=== PATIENT | male | born 1945 | race Caucasian/White ===

== ENCOUNTER 2018-03-25 03:53 | Observation (INO) | payer OTHER ==
--- OUTSIDE RECORDS SUMMARY | 2018-03-25 03:56 | XMS REPORT | Clinical Summary ---
:1945 Author Organization [facility] Address [address] [place] [address] Phone Care Team Providers Name Role Phone Unavailable Primary Care Provider Unavailable Allergies No Known Allergies Current Medications Prescription Sig. Disp. Refills Start Date End Date Status omeprazole (PRILOSEC) Take 20 mg by Active 20 MG capsule mouth 2 (two) times daily. pravastatin Take 40 mg by Active (PRAVACHOL) 40 MG mouth daily. tablet amLODIPine (NORVASC) 5 Take 1 tablet 30 tablet 0 01/28/2017 01/28/2018 MG tablet (5 mg total) by mouth daily. Active Problems Problem Noted Date Delirium 01/14/2017 History of subdural hemorrhage 01/13/2017 Hyponatremia 01/13/2017 DVT (deep venous thrombosis) ([facility]) 01/13/2017 Acute deep vein thrombosis (DVT) of popliteal vein of right lower 01/12/2017 extremity ([facility]) Thrombocytopenia ([facility]) 01/12/2017 Hyperlipidemia 01/12/2017 GERD (gastroesophageal reflux disease) 01/12/2017 Acute encephalopathy 12/25/2016 Midline shift of brain 12/25/2016 Weakness of both lower extremities 12/24/2016 Midline low back pain with left-sided sciatica, unspecified chronicity 2016 Midline low back pain with left-sided sciatica 12/18/2016 Intracranial subdural hematoma ([facility]) 12/01/2016 Focal and partial seizures ([facility]) 11/19/2016 Aphasia 10/27/2016 Headache due to intracranial disease 10/18/2016 SDH (subdural hematoma) ([facility]) 10/13/2016 SAH (subarachnoid hemorrhage) ([facility]) 10/11/2016 Seizure disorder ([facility]) Hypertension, essential NGA (obstructive sleep apnea) Social History Tobacco Use Types Packs/Day Years Used Date Former Smoker Cigarettes Quit: 08/19/1968 Alcohol Use Drinks/Week oz/Week Comments No quit in 2006 Sex Assigned at Date Recorded Not on file Last Filed Vital Signs Not on file Plan of Treatment Not on file Implants Implanted Type Area [place] Device Expiration Model / Identifier Date Serial / Lot Matrix Floseal Hemo W/O Ndl 10 [id number] - [id number] Cement/Fi Left: POLLARD: BIOSCI 04/18/2018 [id number] / Implanted: Qty: 1 on 12/02/2016 by Michael Alonso MD ller/Adhe Head / sive [id number] Matrix Floseal Hemo W/O Ndl 10 [id number] - [id number] Cement/Fi Left: POLLARD: BIOSCI 05/18/2018 [id number] / Implanted: Qty: 1 on 12/25/2016 by Michael Alonso MD llchas/Adhe Head / sive [id number] Cover [place] [employer] Hole Low Prof 14mm [id number] - [id number] Fracture/ Left: RAPHAEL: RAPHAEL [id number] / Implanted: Qty: 1 on 12/02/2016 by Michael Alonso MD Fixation Head LEIBINGER / Plt W/Tab Un3 2h 53-71203 - [id number] Fracture/ Left: RAPHAEL:CRANIOMA [id number] / Implanted: Qty: 2 on 12/02/2016 by Michael Alonso MD Fixation Head XILLOFACIAL / Scr Un3 [place] Self Drl 1.5x4mm [id number] - [id number] Fracture/ Left: RAPHAEL: CRANIOMA [id number] / Implanted: Qty: 9 on 12/02/2016 by Michael Alonso MD Fixation Head XILLOFACIAL / Cath Bactiseal Evd 82-1745 - [id number] Neuro Left: J &J:LUCIUS & 2016 [id number] / Implanted: Qty: 1 on 12/25/2016 by Michael Alonso MD Head SHURTLEFF / [id number] Results Not on fileafter 03/24/2017
--- OUTSIDE RECORDS SUMMARY | 2018-03-25 04:01 | XMS REPORT ---
:1945 [facility] Organization [facility] Address [address] [place] [address] Dr. Daly [address] [place] [id number] Care Team Providers Name Role Phone JEFF DE PAZ Unavailable Unavailable AMBAR RAI Unavailable Unavailable CLAUDIA ANGELES Unavailable Unavailable RADHA GAFFNEY Unavailable Unavailable ANISA FERRARI Unavailable Unavailable Problems This patient has no known problems. Allergies, Adverse Reactions, Alerts This patient has no known allergies or adverse reactions. Medications This patient has no known medications. Results Test Description Test Time Test Comments Text Results Atomic Results Result Comments CBC W/PLT COUNT & AUTO DIFFERENTIAL 2017-01-28 10:16:00 Test Item Value Reference Range Comments WHITE BLOOD CELL COUNT (BEAKER) (test ypxe=987) 2.8 K/ L 4.0-10.0 RED BLOOD CELL COUNT (BEAKER) (test awpu=218) 3.42 M/ L 4.20-5.80 HEMOGLOBIN (BEAKER) (test gwas=513) 9.3 GM/DL 13.0-16.8 HEMATOCRIT (BEAKER) (test trrq=114) 29.3 % 40.0-50.0 MEAN CORPUSCULAR VOLUME (BEAKER) (test tjbw=286) 85.7 fL 82.0-98.0 MEAN CORPUSCULAR HEMOGLOBIN (BEAKER) (test gmir=251) 27.1 pg 27.0-33.0 MEAN CORPUSCULAR HEMOGLOBIN CONC (BEAKER) (test hkjy=654) 31.7 GM/DL 32.0- 36.0 RED CELL DISTRIBUTION WIDTH (BEAKER) (test pmpu=843) 16.5 % 10.3-14.2 PLATELET COUNT (BEAKER) (test vpwj=851) 163 K/CU MM 150-430 MEAN PLATELET VOLUME (BEAKER) (test kiim=568) 6.6 fL 6.5-10.5 NUCLEATED RED BLOOD CELLS (BEAKER) (test fpah=400) 0 /100 WBC 0-0 NEUTROPHILS RELATIVE PERCENT (BEAKER) (test wpdb=937) 64 % LYMPHOCYTES RELATIVE PERCENT (BEAKER) (test fgdy=015) 18 % MONOCYTES RELATIVE PERCENT (BEAKER) (test vtct=950) 11 % EOSINOPHILS RELATIVE PERCENT (BEAKER) (test omxh=770) 7 % BASOPHILS RELATIVE PERCENT (BEAKER) (test dqci=894) 0 % NEUTROPHILS ABSOLUTE COUNT (BEAKER) (test muru=068) 1.75 K/ L 1.80-8.00 LYMPHOCYTES ABSOLUTE COUNT (BEAKER) (test zefl=830) 0.50 K/ L 1.48-4.50 MONOCYTES ABSOLUTE COUNT (BEAKER) (test lnpr=384) 0.30 K/ L 0.00-1.30 EOSINOPHILS ABSOLUTE COUNT (BEAKER) (test dqee=284) 0.20 K/ L 0.00-0.50 BASOPHILS ABSOLUTE COUNT (BEAKER) (test dmwj=693) 0.01 K/ L 0.00-0.20 0.00(MANUAL DIFFERENTIAL)2017-01-28 10:16:00 Test Item Value Reference Range Comments TOTAL COUNTED (BEAKER) (test tiun=6650) WBC MORPHOLOGY (BEAKER) (test pzkk=007) Normal PLT MORPHOLOGY (BEAKER) (test oddu=290) Normal RBC MORPHOLOGY (BEAKER) (test bmhw=636) Normal BASIC METABOLIC [id number] 07:36:00 Test Item Value Reference Range Comments SODIUM (BEAKER) (test 134 meq/L 136-145 scqt=437) POTASSIUM (BEAKER) (test 4.0 meq/L 3.5-5.1 tbst=801) CHLORIDE (BEAKER) (test 102 meq/L 98-107 gqua=592) CO2 (BEAKER) (test 22 meq/L 22-29 eokw=955) BLOOD UREA NITROGEN 12 mg/dL 7-21 (BEAKER) (test haei=674) CREATININE (BEAKER) (test 0.79 mg/dL 0.57-1.25 etzn=871) GLUCOSE RANDOM (BEAKER) 94 mg/dL 70-105 (test nilr=731) CALCIUM (BEAKER) (test 8.6 mg/dL 8.4-10.2 lpmq=551) EGFR (BEAKER) (test 97 mL/min/1.73 sq m ESTIMATED GFR IS NOT qiip=7107) ACCURATE CREATININE CLEARANCE IN PREDICTING GLOMERULAR FILTRATION RATE. ESTIMATED GFR IS NOT APPLICABLE FOR DIALYSIS PATIENTS. [id number] 07:33:00 Test Item Value Reference Range Comments PROTIME (BEAKER) (test hfwk=139) 14.0 seconds 11.7-14.7 INR (BEAKER) (test rdfe=471) 1.1 <=5.9 PARTIAL THROMBOPLASTIN TIME (BEAKER) (test 31.2 seconds 22.5-36.0 dljt=648) RECOMMENDED COUMADIN/WARFARIN INR THERAPY RANGESSTANDARD DOSE: 2.0 - 3.0 Includes: PROPHYLAXIS forvenous thrombosis, systemic embolization; TREATMENT for venous thrombosis and/or pulmonary embolus.HIGH RISK: Target INR is 2.5-3.5 for patients with mechanical heart valves.[id number] 16:00:00 Test Item Value Reference Range Comments PHOSPHORUS (BEAKER) (test pdyb=864) 3.6 mg/dL 2.3-4.7 [id number] 16:00:00 Test Item Value Reference Range Comments MAGNESIUM (BEAKER) (test eevr=096) 2.0 mg/dL 1.6-2.6 BASIC METABOLIC [id number] 16:00:00 Test Item Value Reference Range Comments SODIUM (BEAKER) (test 134 meq/L 136-145 veti=418) POTASSIUM (BEAKER) (test 4.2 meq/L 3.5-5.1 mmce=915) CHLORIDE (BEAKER) (test 102 meq/L 98-107 bbqm=834) CO2 (BEAKER) (test 25 meq/L 22-29 bjpe=969) BLOOD UREA NITROGEN 15 mg/dL 7-21 (BEAKER) (test xgyp=272) CREATININE (BEAKER) (test 0.78 mg/dL 0.57-1.25 kvvf=226) GLUCOSE RANDOM (BEAKER) 111 mg/dL 70-105 (test ecng=416) CALCIUM (BEAKER) (test 8.3 mg/dL 8.4-10.2 iszh=447) EGFR (BEAKER) (test 99 mL/min/1.73 sq m ESTIMATED GFR IS NOT pebg=3995) ACCURATE CREATININE CLEARANCE IN PREDICTING GLOMERULAR FILTRATION RATE. ESTIMATED GFR IS NOT APPLICABLE FOR DIALYSIS PATIENTS. CBC W/PLT COUNT & AUTO [id number] 15:02:00 Test Item Value Reference Range Comments WHITE BLOOD CELL COUNT (BEAKER) (test aobo=079) 2.8 K/ L 4.0-10.0 RED BLOOD CELL COUNT (BEAKER) (test vmqy=643) 3.15 M/ L 4.20-5.80 HEMOGLOBIN (BEAKER) (test dnoe=733) 8.9 GM/DL 13.0-16.8 HEMATOCRIT (BEAKER) (test vfwg=553) 27.1 % 40.0-50.0 MEAN CORPUSCULAR VOLUME (BEAKER) (test emts=024) 85.9 fL 82.0-98.0 MEAN CORPUSCULAR HEMOGLOBIN (BEAKER) (test 28.3 pg 27.0-33.0 qpoi=540) MEAN CORPUSCULAR HEMOGLOBIN CONC (BEAKER) (test 33.0 GM/DL 32.0-36.0 vzmb=079) RED CELL DISTRIBUTION WIDTH (BEAKER) (test 15.8 % 10.3-14.2 qrds=107) PLATELET COUNT (BEAKER) (test fwqn=316) 153 K/CU MM 150-430 MEAN PLATELET VOLUME (BEAKER) (test svdr=836) 6.5 fL 6.5-10.5 NUCLEATED RED BLOOD CELLS (BEAKER) (test 0 /100 WBC 0-0 ujqc=073) NEUTROPHILS RELATIVE PERCENT (BEAKER) (test 68 % rmsj=046) LYMPHOCYTES RELATIVE PERCENT (BEAKER) (test 15 % mwlv=906) MONOCYTES RELATIVE PERCENT (BEAKER) (test 9 % uizj=808) EOSINOPHILS RELATIVE PERCENT (BEAKER) (test 7 % armf=874) BASOPHILS RELATIVE PERCENT (BEAKER) (test 1 % amof=124) NEUTROPHILS ABSOLUTE COUNT (BEAKER) (test 1.89 K/ L 1.80-8.00 tlrp=965) LYMPHOCYTES ABSOLUTE COUNT (BEAKER) (test 0.42 K/ L 1.48-4.50 zamf=582) MONOCYTES ABSOLUTE COUNT (BEAKER) (test 0.26 K/ L 0.00-1.30 unef=376) EOSINOPHILS ABSOLUTE COUNT (BEAKER) (test 0.20 K/ L 0.00-0.50 atig=217) BASOPHILS ABSOLUTE COUNT (BEAKER) (test 0.02 K/ L 0.00-0.20 qhgu=413) (MANUAL DIFFERENTIAL)2017-01-27 15:02:00 Test Item Value Reference Range Comments TOTAL COUNTED (BEAKER) (test pizb=9249) WBC MORPHOLOGY (BEAKER) (test rruu=010) Normal PLT MORPHOLOGY (BEAKER) (test jcua=527) Normal RBC MORPHOLOGY (BEAKER) (test hysp=602) Normal [id number] 07:21:00 Test Item Value Reference Range Comments PROTIME (BEAKER) (test naew=870) 14.0 seconds 11.7-14.7 INR (BEAKER) (test zcds=064) 1.1 <=5.9 PARTIAL THROMBOPLASTIN TIME (BEAKER) (test 35.9 seconds 22.5-36.0 hhxr=717) RECOMMENDED COUMADIN/WARFARIN INR THERAPY RANGESSTANDARD DOSE: 2.0 - 3.0 Includes: PROPHYLAXIS forvenous thrombosis, systemic embolization; TREATMENT for venous thrombosis and/or pulmonary embolus.HIGH RISK: Target INR is 2.5-3.5 for patients with mechanical heart valves.CALCIUM, [id number] 06:48:00 Test Item Value Reference Range Comments CALCIUM IONIZED (BEAKER) (test uudy=972) 1.05 mmol/L 1.12-1.27 PH, BLOOD (BEAKER) (test coty=6596) 7.40 CBC W/PLT COUNT & AUTO [id number] 13:02:00 Test Item Value Reference Range Comments WHITE BLOOD CELL COUNT (BEAKER) (test jyrv=785) 2.9 K/ L 4.0-10.0 RED BLOOD CELL COUNT (BEAKER) (test tnzk=593) 3.06 M/ L 4.20-5.80 HEMOGLOBIN (BEAKER) (test theg=100) 8.8 GM/DL 13.0-16.8 HEMATOCRIT (BEAKER) (test dwta=279) 26.4 % 40.0-50.0 MEAN CORPUSCULAR VOLUME (BEAKER) (test qejq=106) 86.3 fL 82.0-98.0 MEAN CORPUSCULAR HEMOGLOBIN (BEAKER) (test 28.6 pg 27.0-33.0 mlof=602) MEAN CORPUSCULAR HEMOGLOBIN CONC (BEAKER) (test 33.2 GM/DL 32.0-36.0 hjtg=032) RED CELL DISTRIBUTION WIDTH (BEAKER) (test 14.4 % 10.3-14.2 agvc=090) PLATELET COUNT (BEAKER) (test iztq=727) 145 K/CU MM 150-430 MEAN PLATELET VOLUME (BEAKER) (test kkfk=689) 6.4 fL 6.5-10.5 NUCLEATED RED BLOOD CELLS (BEAKER) (test 0 /100 WBC 0-0 jvvv=469) NEUTROPHILS RELATIVE PERCENT (BEAKER) (test 67 % bfez=051) LYMPHOCYTES RELATIVE PERCENT (BEAKER) (test 17 % cmeq=436) MONOCYTES RELATIVE PERCENT (BEAKER) (test 11 % exef=946) EOSINOPHILS RELATIVE PERCENT (BEAKER) (test 5 % vbsz=006) BASOPHILS RELATIVE PERCENT (BEAKER) (test 0 % mwzs=463) NEUTROPHILS ABSOLUTE COUNT (BEAKER) (test 1.98 K/ L 1.80-8.00 qxie=885) LYMPHOCYTES ABSOLUTE COUNT (BEAKER) (test 0.50 K/ L 1.48-4.50 gsyt=460) MONOCYTES ABSOLUTE COUNT (BEAKER) (test 0.31 K/ L 0.00-1.30 gjgf=088) EOSINOPHILS ABSOLUTE COUNT (BEAKER) (test 0.15 K/ L 0.00-0.50 scyo=923) BASOPHILS ABSOLUTE COUNT (BEAKER) (test 0.00 K/ L 0.00-0.20 ejat=809) (MANUAL DIFFERENTIAL)2017-01-26 13:02:00 Test Item Value Reference Range Comments TOTAL COUNTED (BEAKER) (test kygu=5490) WBC MORPHOLOGY (BEAKER) (test cwqi=095) Normal PLT MORPHOLOGY (BEAKER) (test remj=392) Normal ANISOCYTOSIS (BEAKER) (test kidn=424) 1+ few POLYCHROMATOPHILLIC RBCS(BEAKER) (test zcni=214) 1+ few [id number] 07:15:00 Test Item Value Reference Range Comments PHOSPHORUS (BEAKER) (test optx=747) 3.2 mg/dL 2.3-4.7 [id number] 07:15:00 Test Item Value Reference Range Comments MAGNESIUM (BEAKER) (test mdzi=307) 2.1 mg/dL 1.6-2.6 BASIC METABOLIC [id number] 07:15:00 Test Item Value Reference Range Comments SODIUM (BEAKER) (test 132 meq/L 136-145 ptio=881) POTASSIUM (BEAKER) (test 4.3 meq/L 3.5-5.1 mius=839) CHLORIDE (BEAKER) (test 101 meq/L 98-107 ywhi=202) CO2 (BEAKER) (test 25 meq/L 22-29 icij=922) BLOOD UREA NITROGEN 15 mg/dL 7-21 (BEAKER) (test wmns=200) CREATININE (BEAKER) (test 0.78 mg/dL 0.57-1.25 nczx=070) GLUCOSE RANDOM (BEAKER) 95 mg/dL 70-105 (test hxez=368) CALCIUM (BEAKER) (test 8.1 mg/dL 8.4-10.2 zbqa=178) EGFR (BEAKER) (test 99 mL/min/1.73 sq m ESTIMATED GFR IS NOT gbaz=5323) ACCURATE CREATININE CLEARANCE IN PREDICTING GLOMERULAR FILTRATION RATE. ESTIMATED GFR IS NOT APPLICABLE FOR DIALYSIS PATIENTS. CALCIUM, [id number] 06:56:00 Test Item Value Reference Range Comments CALCIUM IONIZED (BEAKER) (test sswb=387) 1.00 mmol/L 1.12-1.27 PH, BLOOD (BEAKER) (test deto=0185) 7.39 [id number] 06:45:00 Test Item Value Reference Range Comments PROTIME (BEAKER) (test hqtv=347) 14.6 seconds 11.7-14.7 INR (BEAKER) (test vbpt=886) 1.2 <=5.9 PARTIAL THROMBOPLASTIN TIME (BEAKER) (test 31.6 seconds 22.5-36.0 enkw=875) RECOMMENDED COUMADIN/WARFARIN INR THERAPY RANGESSTANDARD DOSE: 2.0 - 3.0 Includes: PROPHYLAXIS forvenous thrombosis, systemic embolization; TREATMENT for venous thrombosis and/or pulmonary embolus.HIGH RISK: Target INR is 2.5-3.5 for patients with mechanical heart valves.CBC W/PLT COUNT & AUTO [id number] 07:23:00 Test Item Value Reference Range Comments WHITE BLOOD CELL COUNT (BEAKER) (test nyul=356) 3.8 K/ L 4.0-10.0 RED BLOOD CELL COUNT (BEAKER) (test jdnh=811) 3.10 M/ L 4.20-5.80 HEMOGLOBIN (BEAKER) (test egyj=722) 8.8 GM/DL 13.0-16.8 HEMATOCRIT (BEAKER) (test xeha=271) 26.7 % 40.0-50.0 MEAN CORPUSCULAR VOLUME (BEAKER) (test puff=214) 85.9 fL 82.0-98.0 MEAN CORPUSCULAR HEMOGLOBIN (BEAKER) (test 28.2 pg 27.0-33.0 wrxa=582) MEAN CORPUSCULAR HEMOGLOBIN CONC (BEAKER) (test 32.9 GM/DL 32.0-36.0 rdpr=337) RED CELL DISTRIBUTION WIDTH (BEAKER) (test 15.8 % 10.3-14.2 zfom=950) PLATELET COUNT (BEAKER) (test jnht=474) 134 K/CU MM 150-430 MEAN PLATELET VOLUME (BEAKER) (test adie=491) 6.4 fL 6.5-10.5 NUCLEATED RED BLOOD CELLS (BEAKER) (test 0 /100 WBC 0-0 wxsy=347) NEUTROPHILS RELATIVE PERCENT (BEAKER) (test 75 % jaqn=564) LYMPHOCYTES RELATIVE PERCENT (BEAKER) (test 12 % edxu=851) MONOCYTES RELATIVE PERCENT (BEAKER) (test 9 % vdag=618) EOSINOPHILS RELATIVE PERCENT (BEAKER) (test 3 % reno=580) BASOPHILS RELATIVE PERCENT (BEAKER) (test 1 % xyph=810) NEUTROPHILS ABSOLUTE COUNT (BEAKER) (test 2.87 K/ L 1.80-8.00 ahjv=966) LYMPHOCYTES ABSOLUTE COUNT (BEAKER) (test 0.46 K/ L 1.48-4.50 eeqb=525) MONOCYTES ABSOLUTE COUNT (BEAKER) (test 0.36 K/ L 0.00-1.30 ruks=723) EOSINOPHILS ABSOLUTE COUNT (BEAKER) (test 0.13 K/ L 0.00-0.50 taym=736) BASOPHILS ABSOLUTE COUNT (BEAKER) (test 0.02 K/ L 0.00-0.20 koua=402) 0.000.500.000.000.000.000.000.00(MANUAL DIFFERENTIAL)2017-01-25 07:23:00 Test Item Value Reference Range Comments TOTAL COUNTED (BEAKER) (test iwvj=6307) WBC MORPHOLOGY (BEAKER) (test wqnu=706) Normal PLT MORPHOLOGY (BEAKER) (test tmso=328) Normal POLYCHROMATOPHILLIC RBCS(BEAKER) (test nzqg=245) 1+ few BASIC METABOLIC [id number] 04:52:00 Test Item Value Reference Range Comments SODIUM (BEAKER) (test 131 meq/L 136-145 ycko=118) POTASSIUM (BEAKER) (test 4.2 meq/L 3.5-5.1 gihl=666) CHLORIDE (BEAKER) (test 100 meq/L 98-107 thnw=087) CO2 (BEAKER) (test 23 meq/L 22-29 lmgr=473) BLOOD UREA NITROGEN 15 mg/dL 7-21 (BEAKER) (test hvqr=112) CREATININE (BEAKER) (test 0.76 mg/dL 0.57-1.25 sgmz=162) GLUCOSE RANDOM (BEAKER) 103 mg/dL 70-105 (test vdqx=970) CALCIUM (BEAKER) (test 8.3 mg/dL 8.4-10.2 meww=325) EGFR (BEAKER) (test 102 mL/min/1.73 sq m ESTIMATED GFR IS NOT hpof=0434) ACCURATE CREATININE CLEARANCE IN PREDICTING GLOMERULAR FILTRATION RATE. ESTIMATED GFR IS NOT APPLICABLE FOR DIALYSIS PATIENTS. [id number] 04:04:00 Test Item Value Reference Range Comments PROTIME (BEAKER) (test bhrz=486) 13.8 seconds 11.7-14.7 INR (BEAKER) (test iiso=792) 1.1 <=5.9 PARTIAL THROMBOPLASTIN TIME (BEAKER) (test 29.3 seconds 22.5-36.0 gcgv=014) RECOMMENDED COUMADIN/WARFARIN INR THERAPY RANGESSTANDARD DOSE: 2.0 - 3.0 Includes: PROPHYLAXIS forvenous thrombosis, systemic embolization; TREATMENT for venous thrombosis and/or pulmonary embolus.HIGH RISK: Target INR is 2.5-3.5 for patients with mechanical heart valves.CBC W/PLT COUNT & AUTO [id number] 06:44:00 Test Item Value Reference Range Comments WHITE BLOOD CELL COUNT (BEAKER) (test mtpi=537) 3.8 K/ L 4.0-10.0 RED BLOOD CELL COUNT (BEAKER) (test mmiv=357) 3.13 M/ L 4.20-5.80 HEMOGLOBIN (BEAKER) (test sjyj=913) 8.9 GM/DL 13.0-16.8 HEMATOCRIT (BEAKER) (test mjmh=749) 27.2 % 40.0-50.0 MEAN CORPUSCULAR VOLUME (BEAKER) (test tjzj=374) 86.7 fL 82.0-98.0 MEAN CORPUSCULAR HEMOGLOBIN (BEAKER) (test 28.3 pg 27.0-33.0 cpkl=606) MEAN CORPUSCULAR HEMOGLOBIN CONC (BEAKER) (test 32.6 GM/DL 32.0-36.0 hcyd=566) RED CELL DISTRIBUTION WIDTH (BEAKER) (test 14.4 % 10.3-14.2 ovjs=578) PLATELET COUNT (BEAKER) (test upik=798) 135 K/CU MM 150-430 MEAN PLATELET VOLUME (BEAKER) (test hdtb=137) 6.5 fL 6.5-10.5 NUCLEATED RED BLOOD CELLS (BEAKER) (test 0 /100 WBC 0-0 ttla=738) NEUTROPHILS RELATIVE PERCENT (BEAKER) (test 75 % cefi=255) LYMPHOCYTES RELATIVE PERCENT (BEAKER) (test 13 % xkzk=883) MONOCYTES RELATIVE PERCENT (BEAKER) (test 9 % qcsv=938) EOSINOPHILS RELATIVE PERCENT (BEAKER) (test 4 % snqx=704) BASOPHILS RELATIVE PERCENT (BEAKER) (test 0 % fawz=017) NEUTROPHILS ABSOLUTE COUNT (BEAKER) (test 2.84 K/ L 1.80-8.00 pvss=118) LYMPHOCYTES ABSOLUTE COUNT (BEAKER) (test 0.48 K/ L 1.48-4.50 omtd=150) MONOCYTES ABSOLUTE COUNT (BEAKER) (test 0.33 K/ L 0.00-1.30 ivnh=495) EOSINOPHILS ABSOLUTE COUNT (BEAKER) (test 0.14 K/ L 0.00-0.50 ceue=105) BASOPHILS ABSOLUTE COUNT (BEAKER) (test 0.00 K/ L 0.00-0.20 phph=850) [id number] 06:23:00 Test Item Value Reference Range Comments PHOSPHORUS (BEAKER) (test uvpv=767) 3.5 mg/dL 2.3-4.7 [id number] 06:23:00 Test Item Value Reference Range Comments MAGNESIUM (BEAKER) (test unpz=326) 2.1 mg/dL 1.6-2.6 BASIC METABOLIC [id number] 06:23:00 Test Item Value Reference Range Comments SODIUM (BEAKER) (test 132 meq/L 136-145 smwz=206) POTASSIUM (BEAKER) (test 4.3 meq/L 3.5-5.1 xdxw=795) CHLORIDE (BEAKER) (test 100 meq/L 98-107 pxus=903) CO2 (BEAKER) (test 25 meq/L 22-29 rsgk=052) BLOOD UREA NITROGEN 17 mg/dL 7-21 (BEAKER) (test cbbt=293) CREATININE (BEAKER) (test 0.84 mg/dL 0.57-1.25 dicd=508) GLUCOSE RANDOM (BEAKER) 102 mg/dL 70-105 (test fett=740) CALCIUM (BEAKER) (test 8.3 mg/dL 8.4-10.2 watz=708) EGFR (BEAKER) (test 91 mL/min/1.73 sq m ESTIMATED GFR IS NOT rkps=1222) ACCURATE CREATININE CLEARANCE IN PREDICTING GLOMERULAR FILTRATION RATE. ESTIMATED GFR IS NOT APPLICABLE FOR DIALYSIS PATIENTS. [id number] 05:42:00 Test Item Value Reference Range Comments PROTIME (BEAKER) (test cahz=446) 14.0 seconds 11.7-14.7 INR (BEAKER) (test wjjt=002) 1.1 <=5.9 PARTIAL THROMBOPLASTIN TIME (BEAKER) (test 30.1 seconds 22.5-36.0 zmch=369) RECOMMENDED COUMADIN/WARFARIN INR THERAPY RANGESSTANDARD DOSE: 2.0 - 3.0 Includes: PROPHYLAXIS forvenous thrombosis, systemic embolization; TREATMENT for venous thrombosis and/or pulmonary embolus.HIGH RISK: Target INR is 2.5-3.5 for patients with mechanical heart valves.CALCIUM, [id number] 05:34:00 Test Item Value Reference Range Comments CALCIUM IONIZED (BEAKER) (test zeqd=082) 1.08 mmol/L 1.12-1.27 PH, BLOOD (BEAKER) (test ebpm=7113) 7.38 CBC W/PLT COUNT & AUTO [id number] 05:27:00 Test Item Value Reference Range Comments WHITE BLOOD CELL COUNT (BEAKER) (test eqsw=411) 4.9 K/ L 4.0-10.0 RED BLOOD CELL COUNT (BEAKER) (test gkyk=650) 3.22 M/ L 4.20-5.80 HEMOGLOBIN (BEAKER) (test pcqk=868) 8.9 GM/DL 13.0-16.8 HEMATOCRIT (BEAKER) (test gtsv=293) 27.9 % 40.0-50.0 MEAN CORPUSCULAR VOLUME (BEAKER) (test xrrx=757) 86.8 fL 82.0-98.0 MEAN CORPUSCULAR HEMOGLOBIN (BEAKER) (test 27.6 pg 27.0-33.0 dckh=626) MEAN CORPUSCULAR HEMOGLOBIN CONC (BEAKER) (test 31.8 GM/DL 32.0-36.0 mpyd=397) RED CELL DISTRIBUTION WIDTH (BEAKER) (test 14.5 % 10.3-14.2 bkyz=965) PLATELET COUNT (BEAKER) (test phxo=603) 137 K/CU MM 150-430 MEAN PLATELET VOLUME (BEAKER) (test gkev=697) 6.6 fL 6.5-10.5 NUCLEATED RED BLOOD CELLS (BEAKER) (test 0 /100 WBC 0-0 blik=734) NEUTROPHILS RELATIVE PERCENT (BEAKER) (test 77 % httd=383) LYMPHOCYTES RELATIVE PERCENT (BEAKER) (test 13 % zoej=681) MONOCYTES RELATIVE PERCENT (BEAKER) (test 8 % mkjs=040) EOSINOPHILS RELATIVE PERCENT (BEAKER) (test 2 % vtju=150) BASOPHILS RELATIVE PERCENT (BEAKER) (test 0 % gmso=606) NEUTROPHILS ABSOLUTE COUNT (BEAKER) (test 3.77 K/ L 1.80-8.00 myjx=728) LYMPHOCYTES ABSOLUTE COUNT (BEAKER) (test 0.62 K/ L 1.48-4.50 dyex=108) MONOCYTES ABSOLUTE COUNT (BEAKER) (test 0.39 K/ L 0.00-1.30 ldvl=279) EOSINOPHILS ABSOLUTE COUNT (BEAKER) (test 0.12 K/ L 0.00-0.50 rwob=613) BASOPHILS ABSOLUTE COUNT (BEAKER) (test 0.01 K/ L 0.00-0.20 iymr=016) 0.00CALCIUM, [id number] 05:25:00 Test Item Value Reference Range Comments CALCIUM IONIZED (BEAKER) (test hbmq=124) 1.06 mmol/L 1.12-1.27 PH, BLOOD (BEAKER) (test qhnw=0646) 7.42 [id number] 05:10:00 Test Item Value Reference Range Comments PHOSPHORUS (BEAKER) (test eqja=210) 3.8 mg/dL 2.3-4.7 [id number] 05:10:00 Test Item Value Reference Range Comments MAGNESIUM (BEAKER) (test rlug=990) 2.0 mg/dL 1.6-2.6 BASIC METABOLIC [id number] 05:10:00 Test Item Value Reference Range Comments SODIUM (BEAKER) (test 129 meq/L 136-145 pesu=222) POTASSIUM (BEAKER) (test 4.6 meq/L 3.5-5.1 doko=701) CHLORIDE (BEAKER) (test 99 meq/L 98-107 tzdy=689) CO2 (BEAKER) (test 20 meq/L 22-29 yzmi=506) BLOOD UREA NITROGEN 19 mg/dL 7-21 (BEAKER) (test dyyp=212) CREATININE (BEAKER) (test 0.84 mg/dL 0.57-1.25 qqyr=092) GLUCOSE RANDOM (BEAKER) 103 mg/dL 70-105 (test zzml=351) CALCIUM (BEAKER) (test 8.6 mg/dL 8.4-10.2 eguo=956) EGFR (BEAKER) (test 91 mL/min/1.73 sq m ESTIMATED GFR IS NOT xhzd=5001) ACCURATE CREATININE CLEARANCE IN PREDICTING GLOMERULAR FILTRATION RATE. ESTIMATED GFR IS NOT APPLICABLE FOR DIALYSIS PATIENTS. [id number] 05:03:00 Test Item Value Reference Range Comments PROTIME (BEAKER) (test dcgw=029) 15.7 seconds 11.7-14.7 INR (BEAKER) (test kryp=014) 1.3 <=5.9 PARTIAL THROMBOPLASTIN TIME (BEAKER) (test 33.7 seconds 22.5-36.0 cstj=878) RECOMMENDED COUMADIN/WARFARIN INR THERAPY RANGESSTANDARD DOSE: 2.0 - 3.0 Includes: PROPHYLAXIS forvenous thrombosis, systemic embolization; TREATMENT for venous thrombosis and/or pulmonary embolus.HIGH RISK: Target INR is 2.5-3.5 for patients with mechanical heart valves.CALCIUM, [id number] 06:19:00 Test Item Value Reference Range Comments CALCIUM IONIZED (BEAKER) (test qvte=763) 0.95 mmol/L 1.12-1.27 PH, BLOOD (BEAKER) (test npuv=3658) 7.50 CBC W/PLT COUNT & AUTO [id number] 06:16:00 Test Item Value Reference Range Comments WHITE BLOOD CELL COUNT (BEAKER) (test udah=257) 6.3 K/ L 4.0-10.0 RED BLOOD CELL COUNT (BEAKER) (test ikmy=150) 3.40 M/ L 4.20-5.80 HEMOGLOBIN (BEAKER) (test qptm=268) 9.6 GM/DL 13.0-16.8 HEMATOCRIT (BEAKER) (test qawq=453) 29.5 % 40.0-50.0 MEAN CORPUSCULAR VOLUME (BEAKER) (test hbkd=180) 86.8 fL 82.0-98.0 MEAN CORPUSCULAR HEMOGLOBIN (BEAKER) (test 28.3 pg 27.0-33.0 fetb=815) MEAN CORPUSCULAR HEMOGLOBIN CONC (BEAKER) (test 32.6 GM/DL 32.0-36.0 mozt=423) RED CELL DISTRIBUTION WIDTH (BEAKER) (test 14.2 % 10.3-14.2 swbi=505) PLATELET COUNT (BEAKER) (test pdri=661) 135 K/CU MM 150-430 MEAN PLATELET VOLUME (BEAKER) (test tgai=526) 6.7 fL 6.5-10.5 NUCLEATED RED BLOOD CELLS (BEAKER) (test 0 /100 WBC 0-0 zlmi=939) NEUTROPHILS RELATIVE PERCENT (BEAKER) (test 81 % mfqg=581) LYMPHOCYTES RELATIVE PERCENT (BEAKER) (test 8 % sido=909) MONOCYTES RELATIVE PERCENT (BEAKER) (test 8 % dgjs=708) EOSINOPHILS RELATIVE PERCENT (BEAKER) (test 2 % tnjz=717) BASOPHILS RELATIVE PERCENT (BEAKER) (test 0 % vgov=651) NEUTROPHILS ABSOLUTE COUNT (BEAKER) (test 5.14 K/ L 1.80-8.00 zumm=548) LYMPHOCYTES ABSOLUTE COUNT (BEAKER) (test 0.54 K/ L 1.48-4.50 ouis=307) MONOCYTES ABSOLUTE COUNT (BEAKER) (test 0.51 K/ L 0.00-1.30 cysi=621) EOSINOPHILS ABSOLUTE COUNT (BEAKER) (test 0.13 K/ L 0.00-0.50 xzro=292) BASOPHILS ABSOLUTE COUNT (BEAKER) (test 0.03 K/ L 0.00-0.20 uffy=798) [id number] 06:00:00 Test Item Value Reference Range Comments PHOSPHORUS (BEAKER) (test wmrv=097) 3.6 mg/dL 2.3-4.7 [id number] 06:00:00 Test Item Value Reference Range Comments MAGNESIUM (BEAKER) (test auye=130) 2.2 mg/dL 1.6-2.6 BASIC METABOLIC [id number] 06:00:00 Test Item Value Reference Range Comments SODIUM (BEAKER) (test 129 meq/L 136-145 kamu=920) POTASSIUM (BEAKER) (test 4.7 meq/L 3.5-5.1 flqw=302) CHLORIDE (BEAKER) (test 98 meq/L 98-107 ugyp=484) CO2 (BEAKER) (test 21 meq/L 22-29 sdcz=316) BLOOD UREA NITROGEN 20 mg/dL 7-21 (BEAKER) (test iyor=559) CREATININE (BEAKER) (test 0.89 mg/dL 0.57-1.25 wqyx=307) GLUCOSE RANDOM (BEAKER) 114 mg/dL 70-105 (test qhol=022) CALCIUM (BEAKER) (test 8.5 mg/dL 8.4-10.2 lobc=939) EGFR (BEAKER) (test 85 mL/min/1.73 sq m ESTIMATED GFR IS NOT flqf=1069) ACCURATE CREATININE CLEARANCE IN PREDICTING GLOMERULAR FILTRATION RATE. ESTIMATED GFR IS NOT APPLICABLE FOR DIALYSIS PATIENTS. [id number] 05:49:00 Test Item Value Reference Range Comments PROTIME (BEAKER) (test kswk=386) 14.6 seconds 11.7-14.7 INR (BEAKER) (test dzqg=537) 1.2 <=5.9 PARTIAL THROMBOPLASTIN TIME (BEAKER) (test 30.8 seconds 22.5-36.0 mcjw=111) RECOMMENDED COUMADIN/WARFARIN INR THERAPY RANGESSTANDARD DOSE: 2.0 - 3.0 Includes: PROPHYLAXIS forvenous thrombosis, systemic embolization; TREATMENT for venous thrombosis and/or pulmonary embolus.HIGH RISK: Target INR is 2.5-3.5 for patients with mechanical heart valves.[id number] 13:57:00 Test Item Value Reference Range Comments FIBRINOGEN LEVEL (BEAKER) (test fjui=098) 347 mg/dl 225-434 CBC W/PLT COUNT & AUTO [id number] 07:20:00 Test Item Value Reference Range Comments WHITE BLOOD CELL COUNT (BEAKER) (test xlek=560) 6.3 K/ L 4.0-10.0 RED BLOOD CELL COUNT (BEAKER) (test innk=034) 3.41 M/ L 4.20-5.80 HEMOGLOBIN (BEAKER) (test zwhv=691) 9.9 GM/DL 13.0-16.8 HEMATOCRIT (BEAKER) (test uulu=225) 29.5 % 40.0-50.0 MEAN CORPUSCULAR VOLUME (BEAKER) (test pwys=888) 86.4 fL 82.0-98.0 MEAN CORPUSCULAR HEMOGLOBIN (BEAKER) (test 29.1 pg 27.0-33.0 swxe=714) MEAN CORPUSCULAR HEMOGLOBIN CONC (BEAKER) (test 33.6 GM/DL 32.0-36.0 nipo=927) RED CELL DISTRIBUTION WIDTH (BEAKER) (test 15.7 % 10.3-14.2 qywr=019) PLATELET COUNT (BEAKER) (test vnyf=985) 126 K/CU MM 150-430 MEAN PLATELET VOLUME (BEAKER) (test rhau=505) 6.8 fL 6.5-10.5 NUCLEATED RED BLOOD CELLS (BEAKER) (test 0 /100 WBC 0-0 gpjx=178) NEUTROPHILS RELATIVE PERCENT (BEAKER) (test 82 % qfqj=100) LYMPHOCYTES RELATIVE PERCENT (BEAKER) (test 8 % zewh=415) MONOCYTES RELATIVE PERCENT (BEAKER) (test 8 % qqxd=148) EOSINOPHILS RELATIVE PERCENT (BEAKER) (test 2 % idoz=708) BASOPHILS RELATIVE PERCENT (BEAKER) (test 0 % shlb=121) NEUTROPHILS ABSOLUTE COUNT (BEAKER) (test 5.22 K/ L 1.80-8.00 yyrh=766) LYMPHOCYTES ABSOLUTE COUNT (BEAKER) (test 0.53 K/ L 1.48-4.50 ixvz=993) MONOCYTES ABSOLUTE COUNT (BEAKER) (test 0.50 K/ L 0.00-1.30 dmzs=439) EOSINOPHILS ABSOLUTE COUNT (BEAKER) (test 0.10 K/ L 0.00-0.50 yese=922) BASOPHILS ABSOLUTE COUNT (BEAKER) (test 0.01 K/ L 0.00-0.20 kzkn=211) 0.00BASI METABOLIC [id number] 06:11:00 Test Item Value Reference Range Comments SODIUM (BEAKER) (test 130 meq/L 136-145 iosx=013) POTASSIUM (BEAKER) (test 4.8 meq/L 3.5-5.1 jwqk=763) CHLORIDE (BEAKER) (test 96 meq/L 98-107 uojs=690) CO2 (BEAKER) (test 25 meq/L 22-29 njqb=035) BLOOD UREA NITROGEN 26 mg/dL 7-21 (BEAKER) (test yomn=556) CREATININE (BEAKER) (test 0.92 mg/dL 0.57-1.25 frfe=631) GLUCOSE RANDOM (BEAKER) 109 mg/dL 70-105 (test wpgc=161) CALCIUM (BEAKER) (test 8.8 mg/dL 8.4-10.2 zeeu=719) EGFR (BEAKER) (test 82 mL/min/1.73 sq m ESTIMATED GFR IS NOT ibkl=1438) ACCURATE CREATININE CLEARANCE IN PREDICTING GLOMERULAR FILTRATION RATE. ESTIMATED GFR IS NOT APPLICABLE FOR DIALYSIS PATIENTS. [id number] 06:01:00 Test Item Value Reference Range Comments PROTIME (BEAKER) (test myfx=767) 15.4 seconds 11.7-14.7 INR (BEAKER) (test vdll=561) 1.2 <=5.9 PARTIAL THROMBOPLASTIN TIME (BEAKER) (test 35.3 seconds 22.5-36.0 fiqn=580) RECOMMENDED COUMADIN/WARFARIN INR THERAPY RANGESSTANDARD DOSE: 2.0 - 3.0 Includes: PROPHYLAXIS forvenous thrombosis, systemic embolization; TREATMENT for venous thrombosis and/or pulmonary embolus.HIGH RISK: Target INR is 2.5-3.5 for patients with mechanical heart valves.CBC W/PLT COUNT & AUTO [id number] 07:13:00 Test Item Value Reference Range Comments WHITE BLOOD CELL COUNT (BEAKER) (test ayta=922) 6.9 K/ L 4.0-10.0 RED BLOOD CELL COUNT (BEAKER) (test lhfs=022) 3.46 M/ L 4.20-5.80 HEMOGLOBIN (BEAKER) (test nzda=944) 9.9 GM/DL 13.0-16.8 HEMATOCRIT (BEAKER) (test kdsa=314) 30.0 % 40.0-50.0 MEAN CORPUSCULAR VOLUME (BEAKER) (test oxka=699) 86.6 fL 82.0-98.0 MEAN CORPUSCULAR HEMOGLOBIN (BEAKER) (test 28.5 pg 27.0-33.0 qgdq=576) MEAN CORPUSCULAR HEMOGLOBIN CONC (BEAKER) (test 32.9 GM/DL 32.0-36.0 pwmw=605) RED CELL DISTRIBUTION WIDTH (BEAKER) (test 15.2 % 10.3-14.2 buvm=809) PLATELET COUNT (BEAKER) (test rvdy=145) 138 K/CU MM 150-430 MEAN PLATELET VOLUME (BEAKER) (test modc=905) 6.6 fL 6.5-10.5 NUCLEATED RED BLOOD CELLS (BEAKER) (test 0 /100 WBC 0-0 derq=928) NEUTROPHILS RELATIVE PERCENT (BEAKER) (test 86 % btvm=477) LYMPHOCYTES RELATIVE PERCENT (BEAKER) (test 5 % ylgv=758) MONOCYTES RELATIVE PERCENT (BEAKER) (test 7 % gkoj=620) EOSINOPHILS RELATIVE PERCENT (BEAKER) (test 1 % mqfn=530) BASOPHILS RELATIVE PERCENT (BEAKER) (test 0 % saip=343) NEUTROPHILS ABSOLUTE COUNT (BEAKER) (test 5.95 K/ L 1.80-8.00 eefs=840) LYMPHOCYTES ABSOLUTE COUNT (BEAKER) (test 0.36 K/ L 1.48-4.50 jhck=871) MONOCYTES ABSOLUTE COUNT (BEAKER) (test 0.50 K/ L 0.00-1.30 nhhr=484) EOSINOPHILS ABSOLUTE COUNT (BEAKER) (test 0.10 K/ L 0.00-0.50 iamv=353) BASOPHILS ABSOLUTE COUNT (BEAKER) (test 0.03 K/ L 0.00-0.20 npmt=201) 0.00PT/[id number] 06:09:00 Test Item Value Reference Range Comments PROTIME (BEAKER) (test dgva=034) 16.3 seconds 11.7-14.7 INR (BEAKER) (test uzxm=481) 1.3 <=5.9 PARTIAL THROMBOPLASTIN TIME (BEAKER) (test 37.7 seconds 22.5-36.0 mnzf=528) RECOMMENDED COUMADIN/WARFARIN INR THERAPY RANGESSTANDARD DOSE: 2.0 - 3.0 Includes: PROPHYLAXIS forvenous thrombosis, systemic embolization; TREATMENT for venous thrombosis and/or pulmonary embolus.HIGH RISK: Target INR is 2.5-3.5 for patients with mechanical heart valves.BASIC METABOLIC [id number] 06:08: 00 Test Item Value Reference Range Comments SODIUM (BEAKER) (test 131 meq/L 136-145 wjhw=776) POTASSIUM (BEAKER) (test 4.7 meq/L 3.5-5.1 lgzq=201) CHLORIDE (BEAKER) (test 99 meq/L 98-107 jxpz=379) CO2 (BEAKER) (test 20 meq/L 22-29 mvob=234) BLOOD UREA NITROGEN 21 mg/dL 7-21 (BEAKER) (test ntei=958) CREATININE (BEAKER) (test 0.91 mg/dL 0.57-1.25 xkji=999) GLUCOSE RANDOM (BEAKER) 133 mg/dL 70-105 (test gaem=180) CALCIUM (BEAKER) (test 8.8 mg/dL 8.4-10.2 vqqm=258) EGFR (BEAKER) (test 83 mL/min/1.73 sq m ESTIMATED GFR IS NOT fzpq=8611) ACCURATE CREATININE CLEARANCE IN PREDICTING GLOMERULAR FILTRATION RATE. ESTIMATED GFR IS NOT APPLICABLE FOR DIALYSIS PATIENTS. CBC W/PLT COUNT & AUTO [id number] 04:02:00 Test Item Value Reference Range Comments WHITE BLOOD CELL COUNT (BEAKER) (test wipk=608) 4.5 K/ L 4.0-10.0 RED BLOOD CELL COUNT (BEAKER) (test ndqp=900) 3.14 M/ L 4.20-5.80 HEMOGLOBIN (BEAKER) (test xchv=124) 9.0 GM/DL 13.0-16.8 HEMATOCRIT (BEAKER) (test xiqx=246) 27.3 % 40.0-50.0 MEAN CORPUSCULAR VOLUME (BEAKER) (test ghmr=174) 86.9 fL 82.0-98.0 MEAN CORPUSCULAR HEMOGLOBIN (BEAKER) (test 28.5 pg 27.0-33.0 rpbc=214) MEAN CORPUSCULAR HEMOGLOBIN CONC (BEAKER) (test 32.8 GM/DL 32.0-36.0 eyhg=690) RED CELL DISTRIBUTION WIDTH (BEAKER) (test 14.7 % 10.3-14.2 htqa=431) PLATELET COUNT (BEAKER) (test xper=275) 195 K/CU MM 150-430 MEAN PLATELET VOLUME (BEAKER) (test zxsk=553) 6.0 fL 6.5-10.5 NUCLEATED RED BLOOD CELLS (BEAKER) (test 0 /100 WBC 0-0 gvai=706) NEUTROPHILS RELATIVE PERCENT (BEAKER) (test 75 % vwec=163) LYMPHOCYTES RELATIVE PERCENT (BEAKER) (test 11 % nuxq=555) MONOCYTES RELATIVE PERCENT (BEAKER) (test 8 % mexr=635) EOSINOPHILS RELATIVE PERCENT (BEAKER) (test 6 % qtlz=660) BASOPHILS RELATIVE PERCENT (BEAKER) (test 1 % zufo=415) NEUTROPHILS ABSOLUTE COUNT (BEAKER) (test 3.34 K/ L 1.80-8.00 cjhh=721) LYMPHOCYTES ABSOLUTE COUNT (BEAKER) (test 0.49 K/ L 1.48-4.50 ynvg=374) MONOCYTES ABSOLUTE COUNT (BEAKER) (test 0.36 K/ L 0.00-1.30 wpxx=938) EOSINOPHILS ABSOLUTE COUNT (BEAKER) (test 0.26 K/ L 0.00-0.50 vjsd=203) BASOPHILS ABSOLUTE COUNT (BEAKER) (test 0.03 K/ L 0.00-0.20 uthf=756) 0.00BASIC METABOLIC [id number] 04:01:00 Test Item Value Reference Range Comments SODIUM (BEAKER) (test 133 meq/L 136-145 gcqg=327) POTASSIUM (BEAKER) (test 4.5 meq/L 3.5-5.1 uvso=084) CHLORIDE (BEAKER) (test 101 meq/L 98-107 aviv=381) CO2 (BEAKER) (test 23 meq/L 22-29 fsaz=789) BLOOD UREA NITROGEN 15 mg/dL 7-21 (BEAKER) (test nivc=445) CREATININE (BEAKER) (test 0.76 mg/dL 0.57-1.25 dlqb=459) GLUCOSE RANDOM (BEAKER) 107 mg/dL 70-105 (test dldy=564) CALCIUM (BEAKER) (test 8.4 mg/dL 8.4-10.2 jwwq=294) EGFR (BEAKER) (test 102 mL/min/1.73 sq m ESTIMATED GFR IS NOT unle=0365) ACCURATE CREATININE CLEARANCE IN PREDICTING GLOMERULAR FILTRATION RATE. ESTIMATED GFR IS NOT APPLICABLE FOR DIALYSIS PATIENTS. [id number] 03:47:00 Test Item Value Reference Range Comments PROTIME (BEAKER) (test qpmn=632) 14.4 seconds 11.7-14.7 INR (BEAKER) (test ewlu=220) 1.1 <=5.9 PARTIAL THROMBOPLASTIN TIME (BEAKER) (test 31.9 seconds 22.5-36.0 rgss=013) RECOMMENDED COUMADIN/WARFARIN INR THERAPY RANGESSTANDARD DOSE: 2.0 - 3.0 Includes: PROPHYLAXIS forvenous thrombosis, systemic embolization; TREATMENT for venous thrombosis and/or pulmonary embolus.HIGH RISK: Target INR is 2.5-3.5 for patients with mechanical heart valves.OCCULT BLOOD, [id number] 15:31:00 Test Item Value Reference Range Comments FECAL OCCULT BLOOD (BEAKER) (test bazv=171) Negative Negative [id number] 13:55:00 Test Item Value Reference Range Comments D-DIMER QUANTITATIVE (BEAKER) (test wvsx=770) 7.42 MG/L FEU <0.50 Intended Use: The D-Dimer Assay can be used to aid in the diagnosis of Deep Vein Thrombosis (DVT) and Pulmonary Embolism Disease (PED).In patients with low pre-test probability, various studies concerning STA Liatest D-dimer test have reported that with a cutoff value of 0.50 MG/L FEU, the Negative Predictive Value (NPV) regarding the exclusion of thrombosis is within 95-100% range.[id number] 13:47:00 Test Item Value Reference Range Comments FIBRINOGEN LEVEL (BEAKER) (test bgei=711) 424 mg/dl 225-434 CBC W/PLT COUNT & AUTO [id number] 06:48:00 Test Item Value Reference Range Comments WHITE BLOOD CELL COUNT (BEAKER) (test ozzb=854) 4.7 K/ L 4.0-10.0 RED BLOOD CELL COUNT (BEAKER) (test ioek=452) 3.08 M/ L 4.20-5.80 HEMOGLOBIN (BEAKER) (test wlgm=147) 9.0 GM/DL 13.0-16.8 HEMATOCRIT (BEAKER) (test kvcy=583) 27.3 % 40.0-50.0 MEAN CORPUSCULAR VOLUME (BEAKER) (test gupk=917) 88.5 fL 82.0-98.0 MEAN CORPUSCULAR HEMOGLOBIN (BEAKER) (test 29.2 pg 27.0-33.0 trnt=658) MEAN CORPUSCULAR HEMOGLOBIN CONC (BEAKER) (test 33.0 GM/DL 32.0-36.0 hclk=252) RED CELL DISTRIBUTION WIDTH (BEAKER) (test 13.6 % 10.3-14.2 bpvc=734) PLATELET COUNT (BEAKER) (test rhru=279) 241 K/CU MM 150-430 MEAN PLATELET VOLUME (BEAKER) (test slri=500) 6.1 fL 6.5-10.5 NUCLEATED RED BLOOD CELLS (BEAKER) (test 0 /100 WBC 0-0 ipdp=781) NEUTROPHILS RELATIVE PERCENT (BEAKER) (test 77 % qqpi=067) LYMPHOCYTES RELATIVE PERCENT (BEAKER) (test 14 % ynug=113) MONOCYTES RELATIVE PERCENT (BEAKER) (test 6 % gblo=462) EOSINOPHILS RELATIVE PERCENT (BEAKER) (test 3 % xmbz=346) BASOPHILS RELATIVE PERCENT (BEAKER) (test 1 % kpqs=699) NEUTROPHILS ABSOLUTE COUNT (BEAKER) (test 3.63 K/ L 1.80-8.00 pyle=020) LYMPHOCYTES ABSOLUTE COUNT (BEAKER) (test 0.64 K/ L 1.48-4.50 zlbs=720) MONOCYTES ABSOLUTE COUNT (BEAKER) (test 0.27 K/ L 0.00-1.30 zmft=290) EOSINOPHILS ABSOLUTE COUNT (BEAKER) (test 0.14 K/ L 0.00-0.50 bofm=065) BASOPHILS ABSOLUTE COUNT (BEAKER) (test 0.03 K/ L 0.00-0.20 dokh=145) [id number] 05:05:00 Test Item Value Reference Range Comments PARTIAL THROMBOPLASTIN TIME (BEAKER) (test 51.7 seconds 22.5-36.0 avye=180) POCT-GLUCOSE [id number] 04:37:00 Test Item Value Reference Range Comments POC-GLUCOSE METER (BEAKER) 108 mg/dL 70-110 TESTED AT [facility] [address] [facility] (test oggy=3225) [facility] [address] [id number] 22:51:00 Test Item Value Reference Range Comments PARTIAL THROMBOPLASTIN TIME (BEAKER) (test 96.1 seconds 22.5-36.0 kana=857) [id number] 16:04:00 Test Item Value Reference Range Comments PARTIAL THROMBOPLASTIN TIME (BEAKER) (test 93.1 seconds 22.5-36.0 shgg=249) [id number] 06:38:00 Test Item Value Reference Range Comments PARTIAL THROMBOPLASTIN TIME (BEAKER) (test 93.0 seconds 22.5-36.0 merq=039) [id number] 23:08:00 Test Item Value Reference Range Comments PARTIAL THROMBOPLASTIN TIME (BEAKER) (test 56.6 seconds 22.5-36.0 zodm=241) [id number] 18:59:00 Test Item Value Reference Range Comments PARTIAL THROMBOPLASTIN TIME (BEAKER) (test 28.6 seconds 22.5-36.0 vwls=794) PROTHROMBIN [id number] 15:38:00 Test Item Value Reference Range Comments PROTIME (BEAKER) (test yxqs=952) 13.9 seconds 11.7-14.7 INR (BEAKER) (test scmy=255) 1.1 <=5.9 RECOMMENDED COUMADIN/WARFARIN INR THERAPY RANGESSTANDARD DOSE: 2.0 - 3.0 Includes: PROPHYLAXIS forvenous thrombosis, systemic embolization; TREATMENT for venous thrombosis and/or pulmonary embolus.HIGH RISK: Target INR is 2.5-3.5 for patients with mechanical heart valves.[id number] 12:27:00 Test Item Value Reference Range Comments PARTIAL THROMBOPLASTIN TIME (BEAKER) (test 65.9 seconds 22.5-36.0 qcmr=451) CBC W/PLT COUNT & AUTO [id number] 06:07:00 Test Item Value Reference Range Comments WHITE BLOOD CELL COUNT (BEAKER) (test gytz=105) 4.4 K/ L 4.0-10.0 RED BLOOD CELL COUNT (BEAKER) (test hiat=831) 2.81 M/ L 4.20-5.80 HEMOGLOBIN (BEAKER) (test rtnf=549) 8.7 GM/DL 13.0-16.8 HEMATOCRIT (BEAKER) (test zkpa=677) 24.5 % 40.0-50.0 MEAN CORPUSCULAR VOLUME (BEAKER) (test yvxx=279) 87.3 fL 82.0-98.0 MEAN CORPUSCULAR HEMOGLOBIN (BEAKER) (test 31.1 pg 27.0-33.0 bxdp=967) MEAN CORPUSCULAR HEMOGLOBIN CONC (BEAKER) (test 35.6 GM/DL 32.0-36.0 jojv=010) RED CELL DISTRIBUTION WIDTH (BEAKER) (test 13.3 % 10.3-14.2 lknv=247) PLATELET COUNT (BEAKER) (test xpmn=408) 176 K/CU MM 150-430 MEAN PLATELET VOLUME (BEAKER) (test meoe=133) 6.1 fL 6.5-10.5 NUCLEATED RED BLOOD CELLS (BEAKER) (test 0 /100 WBC 0-0 jafp=247) NEUTROPHILS RELATIVE PERCENT (BEAKER) (test 72 % xerm=671) LYMPHOCYTES RELATIVE PERCENT (BEAKER) (test 15 % okvu=369) MONOCYTES RELATIVE PERCENT (BEAKER) (test 8 % jfyq=666) EOSINOPHILS RELATIVE PERCENT (BEAKER) (test 4 % kpep=212) BASOPHILS RELATIVE PERCENT (BEAKER) (test 1 % lcuk=739) NEUTROPHILS ABSOLUTE COUNT (BEAKER) (test 3.14 K/ L 1.80-8.00 awlq=896) LYMPHOCYTES ABSOLUTE COUNT (BEAKER) (test 0.65 K/ L 1.48-4.50 oecc=575) MONOCYTES ABSOLUTE COUNT (BEAKER) (test 0.35 K/ L 0.00-1.30 gdby=296) EOSINOPHILS ABSOLUTE COUNT (BEAKER) (test 0.17 K/ L 0.00-0.50 zjkw=544) BASOPHILS ABSOLUTE COUNT (BEAKER) (test 0.04 K/ L 0.00-0.20 lsjr=589) 0.00BASIC METABOLIC [id number] 05:49:00 Test Item Value Reference Range Comments SODIUM (BEAKER) (test 131 meq/L 136-145 wgoj=467) POTASSIUM (BEAKER) (test 4.3 meq/L 3.5-5.1 fkcq=847) CHLORIDE (BEAKER) (test 97 meq/L 98-107 dhyw=835) CO2 (BEAKER) (test 26 meq/L 22-29 aofw=681) BLOOD UREA NITROGEN 17 mg/dL 7-21 (BEAKER) (test fvzh=996) CREATININE (BEAKER) (test 0.87 mg/dL 0.57-1.25 xhde=403) GLUCOSE RANDOM (BEAKER) 101 mg/dL 70-105 (test nodl=975) CALCIUM (BEAKER) (test 8.5 mg/dL 8.4-10.2 fype=790) EGFR (BEAKER) (test 87 mL/min/1.73 sq m ESTIMATED GFR IS NOT bxkc=0181) ACCURATE CREATININE CLEARANCE IN PREDICTING GLOMERULAR FILTRATION RATE. ESTIMATED GFR IS NOT APPLICABLE FOR DIALYSIS PATIENTS. [id number] 05:25:00 Test Item Value Reference Range Comments PARTIAL THROMBOPLASTIN TIME (BEAKER) (test 83.0 seconds 22.5-36.0 ahtz=090) [id number] 22:17:00 Test Item Value Reference Range Comments PARTIAL THROMBOPLASTIN TIME (BEAKER) (test 91.0 seconds 22.5-36.0 pdyl=543) [id number] 16:11:00 Test Item Value Reference Range Comments PARTIAL THROMBOPLASTIN TIME (BEAKER) (test 94.0 seconds 22.5-36.0 itsv=385) [id number] 09:42:00 Test Item Value Reference Range Comments PARTIAL THROMBOPLASTIN TIME (BEAKER) (test 89.9 seconds 22.5-36.0 ufoj=371) [id number] 02:30:00 Test Item Value Reference Range Comments PARTIAL THROMBOPLASTIN TIME (BEAKER) (test 108.5 seconds 22.5-36.0 hqbo=868) [id number] 18:47:00 Test Item Value Reference Range Comments PARTIAL THROMBOPLASTIN TIME (BEAKER) (test 74.1 seconds 22.5-36.0 jqln=113) [id number] 12:42:00 Test Item Value Reference Range Comments PARTIAL THROMBOPLASTIN TIME (BEAKER) (test 48.7 seconds 22.5-36.0 rcrk=923) BASIC METABOLIC [id number] 05:29:00 Test Item Value Reference Range Comments SODIUM (BEAKER) (test 126 meq/L 136-145 iloc=530) POTASSIUM (BEAKER) (test 5.0 meq/L 3.5-5.1 dnmm=230) CHLORIDE (BEAKER) (test 92 meq/L 98-107 dday=413) CO2 (BEAKER) (test 23 meq/L 22-29 myht=202) BLOOD UREA NITROGEN 30 mg/dL 7-21 (BEAKER) (test byjd=483) CREATININE (BEAKER) (test 1.03 mg/dL 0.57-1.25 vgbu=862) GLUCOSE RANDOM (BEAKER) 112 mg/dL 70-105 (test nvnx=544) CALCIUM (BEAKER) (test 9.0 mg/dL 8.4-10.2 uyue=961) EGFR (BEAKER) (test 72 mL/min/1.73 sq m ESTIMATED GFR IS NOT dqoj=0844) ACCURATE CREATININE CLEARANCE IN PREDICTING GLOMERULAR FILTRATION RATE. ESTIMATED GFR IS NOT APPLICABLE FOR DIALYSIS PATIENTS. [id number] 05:14:00 Test Item Value Reference Range Comments PARTIAL THROMBOPLASTIN TIME (BEAKER) (test 43.1 seconds 22.5-36.0 june=354) [id number] 22:32:00 Test Item Value Reference Range Comments PARTIAL THROMBOPLASTIN TIME (BEAKER) (test 42.2 seconds 22.5-36.0 jjqa=670) [id number] 15:38:00 Test Item Value Reference Range Comments PARTIAL THROMBOPLASTIN TIME (BEAKER) (test 36.5 seconds 22.5-36.0 yrjp=435) Prior to initiating heparinCBC (HEMOGRAM ONLY)[id number] 15:22:00 Test Item Value Reference Range Comments WHITE BLOOD CELL COUNT (BEAKER) (test mmvv=131) 11.9 K/ L 4.0-10.0 RED BLOOD CELL COUNT (BEAKER) (test dlje=812) 3.65 M/ L 4.20-5.80 HEMOGLOBIN (BEAKER) (test erly=994) 11.2 GM/DL 13.0-16.8 HEMATOCRIT (BEAKER) (test sper=226) 31.7 % 40.0-50.0 MEAN CORPUSCULAR VOLUME (BEAKER) (test uosh=504) 86.8 fL 82.0-98.0 MEAN CORPUSCULAR HEMOGLOBIN (BEAKER) (test 30.6 pg 27.0-33.0 nuux=111) MEAN CORPUSCULAR HEMOGLOBIN CONC (BEAKER) (test 35.3 GM/DL 32.0-36.0 arfp=927) RED CELL DISTRIBUTION WIDTH (BEAKER) (test 13.6 % 10.3-14.2 tfgl=613) PLATELET COUNT (BEAKER) (test ebjp=803) 132 K/CU MM 150-430 MEAN PLATELET VOLUME (BEAKER) (test vqmx=699) 6.8 fL 6.5-10.5 NUCLEATED RED BLOOD CELLS (BEAKER) (test 0 /100 WBC 0-0 pjdi=806) 0.00BASIC METABOLIC [id number] 06:35:00 Test Item Value Reference Range Comments SODIUM (BEAKER) (test 125 meq/L 136-145 rzkm=229) POTASSIUM (BEAKER) (test 4.8 meq/L 3.5-5.1 szug=918) CHLORIDE (BEAKER) (test 94 meq/L 98-107 jmlh=556) CO2 (BEAKER) (test 19 meq/L 22-29 sexi=868) BLOOD UREA NITROGEN 29 mg/dL 7-21 (BEAKER) (test iwyf=295) CREATININE (BEAKER) (test 1.12 mg/dL 0.57-1.25 zlgq=471) GLUCOSE RANDOM (BEAKER) 141 mg/dL 70-105 (test lcpd=092) CALCIUM (BEAKER) (test 9.0 mg/dL 8.4-10.2 rgbh=249) EGFR (BEAKER) (test 65 mL/min/1.73 sq m ESTIMATED GFR IS NOT gpwg=2801) ACCURATE CREATININE CLEARANCE IN PREDICTING GLOMERULAR FILTRATION RATE. ESTIMATED GFR IS NOT APPLICABLE FOR DIALYSIS PATIENTS. CBC (HEMOGRAM ONLY)[id number] 06:24:00 Test Item Value Reference Range Comments WHITE BLOOD CELL COUNT (BEAKER) (test dipx=452) 12.2 K/ L 4.0-10.0 RED BLOOD CELL COUNT (BEAKER) (test dkhl=683) 3.84 M/ L 4.20-5.80 HEMOGLOBIN (BEAKER) (test nsat=851) 10.8 GM/DL 13.0-16.8 HEMATOCRIT (BEAKER) (test yyjv=146) 32.9 % 40.0-50.0 MEAN CORPUSCULAR VOLUME (BEAKER) (test ituy=141) 85.8 fL 82.0-98.0 MEAN CORPUSCULAR HEMOGLOBIN (BEAKER) (test 28.3 pg 27.0-33.0 itbl=426) MEAN CORPUSCULAR HEMOGLOBIN CONC (BEAKER) (test 33.0 GM/DL 32.0-36.0 wrnx=717) RED CELL DISTRIBUTION WIDTH (BEAKER) (test 14.7 % 10.3-14.2 cpcb=868) PLATELET COUNT (BEAKER) (test gaet=216) 135 K/CU MM 150-430 MEAN PLATELET VOLUME (BEAKER) (test jwfr=046) 7.3 fL 6.5-10.5 NUCLEATED RED BLOOD CELLS (BEAKER) (test 0 /100 WBC 0-0 iiai=967) 0.00PHENYTOIN LEVEL, [id number] 06:21:00 Test Item Value Reference Range Comments PHENYTOIN (DILANTIN) (BEAKER) (test iklx=509) 4.0 ug/mL 10.0-20.0 URINALYSIS W/ REFLEX URINE [id number] 12:57:00 Test Item Value Reference Range Comments COLOR (BEAKER) (test yive=357) Dark Yellow CLARITY (BEAKER) (test lgew=546) Hazy SPECIFIC GRAVITY UA (BEAKER) (test fgib=617) 1.040 1.001-1.035 PH UA (BEAKER) (test rxwh=261) 6.0 5.0-8.0 PROTEIN UA (BEAKER) (test dfed=971) 100 mg/dL Negative GLUCOSE UA (BEAKER) (test cdow=441) Negative Negative KETONES UA (BEAKER) (test exdq=243) Trace Negative BILIRUBIN UA (BEAKER) (test ufnl=894) Negative Negative BLOOD UA (BEAKER) (test ijmn=728) Negative Negative NITRITE UA (BEAKER) (test tboc=185) Negative Negative LEUKOCYTE ESTERASE UA (BEAKER) (test aspz=302) Negative Negative UROBILINOGEN UA (BEAKER) (test nvto=477) 2.0 mg/dL 0.2-1.0 RBC UA (BEAKER) (test uiph=924) 1 /HPF WBC UA (BEAKER) (test epdt=915) 4 /HPF MUCUS (BEAKER) (test rmye=9095) Many HYALINE CASTS (BEAKER) (test hgka=617) 15 /LPF SOURCE(BEAKER) (test wify=4313) HEPATIC FUNCTION [id number] 12:45:00 Test Item Value Reference Range Comments TOTAL PROTEIN (BEAKER) (test gmiy=308) 7.0 gm/dL 6.0-8.3 ALBUMIN (BEAKER) (test cswt=3761) 3.7 g/dL 3.5-5.0 BILIRUBIN TOTAL (BEAKER) (test yjoz=997) 0.5 mg/dL 0.2-1.2 BILIRUBIN DIRECT (BEAKER) (test kvst=164) 0.2 mg/dL 0.1-0.5 ALKALINE PHOSPHATASE (BEAKER) (test wnao=151) 99 U/L 40-150 AST (SGOT) (BEAKER) (test qvqr=738) 18 U/L 5-34 ALT (SGPT) (BEAKER) (test wira=143) 22 U/L 6-55 BASIC METABOLIC [id number] 12:45:00 Test Item Value Reference Range Comments SODIUM (BEAKER) (test 130 meq/L 136-145 gulr=671) POTASSIUM (BEAKER) (test 4.3 meq/L 3.5-5.1 dzcx=369) CHLORIDE (BEAKER) (test 97 meq/L 98-107 qumi=646) CO2 (BEAKER) (test 21 meq/L 22-29 hake=624) BLOOD UREA NITROGEN 21 mg/dL 7-21 (BEAKER) (test vuff=049) CREATININE (BEAKER) (test 1.19 mg/dL 0.57-1.25 lbku=928) GLUCOSE RANDOM (BEAKER) 139 mg/dL 70-105 (test cfan=504) CALCIUM (BEAKER) (test 8.7 mg/dL 8.4-10.2 fcap=425) EGFR (BEAKER) (test 61 mL/min/1.73 sq m ESTIMATED GFR IS NOT ihxm=8414) ACCURATE CREATININE CLEARANCE IN PREDICTING GLOMERULAR FILTRATION RATE. ESTIMATED GFR IS NOT APPLICABLE FOR DIALYSIS PATIENTS. CBC (HEMOGRAM ONLY)2017-01-12 12:33:00 Test Item Value Reference Range Comments WHITE BLOOD CELL COUNT (BEAKER) (test wcmt=480) 12.2 K/ L 4.0-10.0 RED BLOOD CELL COUNT (BEAKER) (test efrn=533) 3.61 M/ L 4.20-5.80 HEMOGLOBIN (BEAKER) (test bsjk=868) 10.9 GM/DL 13.0-16.8 HEMATOCRIT (BEAKER) (test nufj=986) 31.6 % 40.0-50.0 MEAN CORPUSCULAR VOLUME (BEAKER) (test twli=967) 87.4 fL 82.0-98.0 MEAN CORPUSCULAR HEMOGLOBIN (BEAKER) (test 30.1 pg 27.0-33.0 wrwd=967) MEAN CORPUSCULAR HEMOGLOBIN CONC (BEAKER) (test 34.4 GM/DL 32.0-36.0 bxak=897) RED CELL DISTRIBUTION WIDTH (BEAKER) (test 13.0 % 10.3-14.2 kixt=626) PLATELET COUNT (BEAKER) (test wfux=639) 131 K/CU MM 150-430 MEAN PLATELET VOLUME (BEAKER) (test lvhp=017) 6.6 fL 6.5-10.5 NUCLEATED RED BLOOD CELLS (BEAKER) (test 0 /100 WBC 0-0 bnrn=196) 0.00POCT-GLUCOSE [id number] 11:53:00 Test Item Value Reference Range Comments POC-GLUCOSE METER (BEAKER) 117 mg/dL 70-110 TESTED AT [facility] [address] (test ghft=2488) [facility] [address] CBC W/PLT COUNT & AUTO [id number] 07:10:00 Test Item Value Reference Range Comments WHITE BLOOD CELL COUNT (BEAKER) (test nmil=601) 3.7 K/ L 4.0-10.0 RED BLOOD CELL COUNT (BEAKER) (test dkbe=247) 3.87 M/ L 4.20-5.80 HEMOGLOBIN (BEAKER) (test oivp=404) 11.7 GM/DL 13.0-16.8 HEMATOCRIT (BEAKER) (test xist=293) 34.6 % 40.0-50.0 MEAN CORPUSCULAR VOLUME (BEAKER) (test kkmk=371) 89.6 fL 82.0-98.0 MEAN CORPUSCULAR HEMOGLOBIN (BEAKER) (test 30.4 pg 27.0-33.0 znck=647) MEAN CORPUSCULAR HEMOGLOBIN CONC (BEAKER) (test 33.9 GM/DL 32.0-36.0 pjfc=927) RED CELL DISTRIBUTION WIDTH (BEAKER) (test 12.0 % 10.3-14.2 aqfp=044) PLATELET COUNT (BEAKER) (test fkea=807) 158 K/CU MM 150-430 MEAN PLATELET VOLUME (BEAKER) (test rtak=129) 6.6 fL 6.5-10.5 NUCLEATED RED BLOOD CELLS (BEAKER) (test 0 /100 WBC 0-0 vahu=599) NEUTROPHILS RELATIVE PERCENT (BEAKER) (test 65 % ztms=081) LYMPHOCYTES RELATIVE PERCENT (BEAKER) (test 18 % qujn=158) MONOCYTES RELATIVE PERCENT (BEAKER) (test 11 % scfy=989) EOSINOPHILS RELATIVE PERCENT (BEAKER) (test 6 % xqex=550) BASOPHILS RELATIVE PERCENT (BEAKER) (test 0 % jnjd=944) NEUTROPHILS ABSOLUTE COUNT (BEAKER) (test 2.40 K/ L 1.80-8.00 pqgy=128) LYMPHOCYTES ABSOLUTE COUNT (BEAKER) (test 0.68 K/ L 1.48-4.50 umdj=949) MONOCYTES ABSOLUTE COUNT (BEAKER) (test 0.40 K/ L 0.00-1.30 adzw=631) EOSINOPHILS ABSOLUTE COUNT (BEAKER) (test 0.23 K/ L 0.00-0.50 qqvf=934) BASOPHILS ABSOLUTE COUNT (BEAKER) (test 0.01 K/ L 0.00-0.20 pgsz=992) 0.00PT/[id number] 15:06:00 Test Item Value Reference Range Comments PROTIME (BEAKER) (test gocn=285) 14.8 seconds 11.7-14.7 INR (BEAKER) (test hcax=461) 1.2 <=5.9 PARTIAL THROMBOPLASTIN TIME (BEAKER) (test 29.1 seconds 22.5-36.0 zceu=873) RECOMMENDED COUMADIN/WARFARIN INR THERAPY RANGESSTANDARD DOSE: 2.0 - 3.0 Includes: PROPHYLAXIS forvenous thrombosis, systemic embolization; TREATMENT for venous thrombosis and/or pulmonary embolus.HIGH RISK: Target INR is 2.5-3.5 for patients with mechanical heart valves.POCT-GLUCOSE [id number] 12:02:00 Test Item Value Reference Range Comments POC-GLUCOSE METER (BEAKER) 137 mg/dL 70-110 TESTED AT [facility] [address] [facility] (test cavd=2674) [facility] [address] BASIC METABOLIC [id number] 05:46:00 Test Item Value Reference Range Comments SODIUM (BEAKER) (test 134 meq/L 136-145 ivar=965) POTASSIUM (BEAKER) (test 3.9 meq/L 3.5-5.1 mtit=058) CHLORIDE (BEAKER) (test 101 meq/L 98-107 wksy=995) CO2 (BEAKER) (test 25 meq/L 22-29 feym=275) BLOOD UREA NITROGEN 10 mg/dL 7-21 (BEAKER) (test oljp=864) CREATININE (BEAKER) (test 0.82 mg/dL 0.57-1.25 mnvn=662) GLUCOSE RANDOM (BEAKER) 102 mg/dL 70-105 (test dqav=407) CALCIUM (BEAKER) (test 8.6 mg/dL 8.4-10.2 wjlc=027) EGFR (BEAKER) (test 93 mL/min/1.73 sq m ESTIMATED GFR IS NOT nvlk=4401) ACCURATE CREATININE CLEARANCE IN PREDICTING GLOMERULAR FILTRATION RATE. ESTIMATED GFR IS NOT APPLICABLE FOR DIALYSIS PATIENTS. CBC W/PLT COUNT & AUTO [id number] 05:44:00 Test Item Value Reference Range Comments WHITE BLOOD CELL COUNT (BEAKER) (test tjeb=146) 3.9 K/ L 4.0-10.0 RED BLOOD CELL COUNT (BEAKER) (test ozxc=893) 3.89 M/ L 4.20-5.80 HEMOGLOBIN (BEAKER) (test jjqr=342) 11.8 GM/DL 13.0-16.8 HEMATOCRIT (BEAKER) (test hyeo=942) 35.0 % 40.0-50.0 MEAN CORPUSCULAR VOLUME (BEAKER) (test yrdw=216) 90.0 fL 82.0-98.0 MEAN CORPUSCULAR HEMOGLOBIN (BEAKER) (test 30.4 pg 27.0-33.0 ioyd=026) MEAN CORPUSCULAR HEMOGLOBIN CONC (BEAKER) (test 33.8 GM/DL 32.0-36.0 ilde=024) RED CELL DISTRIBUTION WIDTH (BEAKER) (test 11.9 % 10.3-14.2 iadj=830) PLATELET COUNT (BEAKER) (test abyu=758) 160 K/CU MM 150-430 MEAN PLATELET VOLUME (BEAKER) (test tnvs=493) 6.3 fL 6.5-10.5 NUCLEATED RED BLOOD CELLS (BEAKER) (test 0 /100 WBC 0-0 bxcd=334) NEUTROPHILS RELATIVE PERCENT (BEAKER) (test 68 % nxie=239) LYMPHOCYTES RELATIVE PERCENT (BEAKER) (test 14 % ymmr=498) MONOCYTES RELATIVE PERCENT (BEAKER) (test 11 % hfxt=003) EOSINOPHILS RELATIVE PERCENT (BEAKER) (test 8 % nqkm=486) BASOPHILS RELATIVE PERCENT (BEAKER) (test 0 % fitq=039) NEUTROPHILS ABSOLUTE COUNT (BEAKER) (test 2.66 K/ L 1.80-8.00 fzoq=826) LYMPHOCYTES ABSOLUTE COUNT (BEAKER) (test 0.54 K/ L 1.48-4.50 oqvf=837) MONOCYTES ABSOLUTE COUNT (BEAKER) (test 0.42 K/ L 0.00-1.30 lqdo=033) EOSINOPHILS ABSOLUTE COUNT (BEAKER) (test 0.31 K/ L 0.00-0.50 jvhb=933) BASOPHILS ABSOLUTE COUNT (BEAKER) (test 0.01 K/ L 0.00-0.20 wujx=267) 0.00POCT-GLUCOSE [id number] 01:09:00 Test Item Value Reference Range Comments POC-GLUCOSE METER (BEAKER) 105 mg/dL 70-110 TESTED AT [address] (test tjxw=8871) [facility] [address] POCT-GLUCOSE [id number] 17:33:00 Test Item Value Reference Range Comments POC-GLUCOSE METER (BEAKER) 123 mg/dL 70-110 TESTED AT [address] (test mwrx=5914) [facility] [address] POCT-GLUCOSE [id number] 12:08:00 Test Item Value Reference Range Comments POC-GLUCOSE METER (BEAKER) 104 mg/dL 70-110 TESTED AT [address] (test ivxl=0560) [facility] [address] POCT-GLUCOSE [id number] 06:26:00 Test Item Value Reference Range Comments POC-GLUCOSE METER (BEAKER) 139 mg/dL 70-110 TESTED AT [address] (test dltd=5074) [facility] [address] BASIC METABOLIC [id number] 04:04:00 Test Item Value Reference Range Comments SODIUM (BEAKER) (test 137 meq/L 136-145 lbav=717) POTASSIUM (BEAKER) (test 3.8 meq/L 3.5-5.1 icrl=171) CHLORIDE (BEAKER) (test 104 meq/L 98-107 dwco=022) CO2 (BEAKER) (test 25 meq/L 22-29 lfbo=052) BLOOD UREA NITROGEN 15 mg/dL 7-21 (BEAKER) (test zfza=146) CREATININE (BEAKER) (test 0.83 mg/dL 0.57-1.25 zsoq=412) GLUCOSE RANDOM (BEAKER) 114 mg/dL 70-105 (test kwpz=973) CALCIUM (BEAKER) (test 8.5 mg/dL 8.4-10.2 obef=191) EGFR (BEAKER) (test 92 mL/min/1.73 sq m ESTIMATED GFR IS NOT mydk=9107) ACCURATE CREATININE CLEARANCE IN PREDICTING GLOMERULAR FILTRATION RATE. ESTIMATED GFR IS NOT APPLICABLE FOR DIALYSIS PATIENTS. CBC W/PLT COUNT & AUTO [id number] 03:54:00 Test Item Value Reference Range Comments WHITE BLOOD CELL COUNT (BEAKER) (test dbva=922) 4.4 K/ L 4.0-10.0 RED BLOOD CELL COUNT (BEAKER) (test byxj=884) 3.67 M/ L 4.20-5.80 HEMOGLOBIN (BEAKER) (test otpe=385) 11.2 GM/DL 13.0-16.8 HEMATOCRIT (BEAKER) (test bpxj=985) 32.9 % 40.0-50.0 MEAN CORPUSCULAR VOLUME (BEAKER) (test wvta=633) 89.8 fL 82.0-98.0 MEAN CORPUSCULAR HEMOGLOBIN (BEAKER) (test 30.4 pg 27.0-33.0 ryvl=949) MEAN CORPUSCULAR HEMOGLOBIN CONC (BEAKER) (test 33.9 GM/DL 32.0-36.0 pqpg=168) RED CELL DISTRIBUTION WIDTH (BEAKER) (test 12.0 % 10.3-14.2 ggdg=146) PLATELET COUNT (BEAKER) (test cibs=240) 162 K/CU MM 150-430 MEAN PLATELET VOLUME (BEAKER) (test dkcc=044) 6.1 fL 6.5-10.5 NUCLEATED RED BLOOD CELLS (BEAKER) (test 0 /100 WBC 0-0 gyjp=764) NEUTROPHILS RELATIVE PERCENT (BEAKER) (test 68 % bomg=931) LYMPHOCYTES RELATIVE PERCENT (BEAKER) (test 14 % fruj=035) MONOCYTES RELATIVE PERCENT (BEAKER) (test 11 % dpyp=130) EOSINOPHILS RELATIVE PERCENT (BEAKER) (test 8 % evfx=825) BASOPHILS RELATIVE PERCENT (BEAKER) (test 0 % hkrm=952) NEUTROPHILS ABSOLUTE COUNT (BEAKER) (test 2.96 K/ L 1.80-8.00 cwxh=769) LYMPHOCYTES ABSOLUTE COUNT (BEAKER) (test 0.59 K/ L 1.48-4.50 wisb=003) MONOCYTES ABSOLUTE COUNT (BEAKER) (test 0.47 K/ L 0.00-1.30 kvgi=655) EOSINOPHILS ABSOLUTE COUNT (BEAKER) (test 0.33 K/ L 0.00-0.50 xhvb=877) BASOPHILS ABSOLUTE COUNT (BEAKER) (test 0.02 K/ L 0.00-0.20 kxjm=832) 0.00POCT-GLUCOSE [id number] 00:30:00 Test Item Value Reference Range Comments POC-GLUCOSE METER (BEAKER) 106 mg/dL 70-110 TESTED AT [facility] [address] [facility] (test wvlf=6460) [facility] [address] POCT-GLUCOSE [id number] 17:47:00 Test Item Value Reference Range Comments POC-GLUCOSE METER (BEAKER) 158 mg/dL 70-110 TESTED AT [facility] [address] [facility] (test aubr=3605) [facility] [address] POCT-GLUCOSE [id number] 12:41:00 Test Item Value Reference Range Comments POC-GLUCOSE METER (BEAKER) 184 mg/dL 70-110 TESTED AT [place] [id number] [facility] (test vslr=3406) [facility] [address] BASIC METABOLIC [id number] 07:20:00 Test Item Value Reference Range Comments SODIUM (BEAKER) (test 132 meq/L 136-145 uqoe=970) POTASSIUM (BEAKER) (test 3.8 meq/L 3.5-5.1 cyon=339) CHLORIDE (BEAKER) (test 103 meq/L 98-107 nrtt=208) CO2 (BEAKER) (test 21 meq/L 22-29 xqnh=763) BLOOD UREA NITROGEN 10 mg/dL 7-21 (BEAKER) (test yeva=966) CREATININE (BEAKER) (test 0.76 mg/dL 0.57-1.25 olnf=734) GLUCOSE RANDOM (BEAKER) 105 mg/dL 70-105 (test qdun=800) CALCIUM (BEAKER) (test 8.4 mg/dL 8.4-10.2 icpz=859) EGFR (BEAKER) (test 102 mL/min/1.73 sq m ESTIMATED GFR IS NOT jsos=0224) ACCURATE CREATININE CLEARANCE IN PREDICTING GLOMERULAR FILTRATION RATE. ESTIMATED GFR IS NOT APPLICABLE FOR DIALYSIS PATIENTS. CBC W/PLT COUNT & AUTO [id number] 06:56:00 Test Item Value Reference Range Comments WHITE BLOOD CELL COUNT (BEAKER) (test vuwb=970) 3.9 K/ L 4.0-10.0 RED BLOOD CELL COUNT (BEAKER) (test tabu=680) 3.68 M/ L 4.20-5.80 HEMOGLOBIN (BEAKER) (test sjxz=990) 11.0 GM/DL 13.0-16.8 HEMATOCRIT (BEAKER) (test locj=614) 32.7 % 40.0-50.0 MEAN CORPUSCULAR VOLUME (BEAKER) (test lhco=134) 88.9 fL 82.0-98.0 MEAN CORPUSCULAR HEMOGLOBIN (BEAKER) (test 29.9 pg 27.0-33.0 vccb=275) MEAN CORPUSCULAR HEMOGLOBIN CONC (BEAKER) (test 33.6 GM/DL 32.0-36.0 igpv=979) RED CELL DISTRIBUTION WIDTH (BEAKER) (test 11.7 % 10.3-14.2 fljb=699) PLATELET COUNT (BEAKER) (test ftwh=197) 188 K/CU MM 150-430 MEAN PLATELET VOLUME (BEAKER) (test ztaw=727) 6.3 fL 6.5-10.5 NUCLEATED RED BLOOD CELLS (BEAKER) (test 0 /100 WBC 0-0 frkm=539) NEUTROPHILS RELATIVE PERCENT (BEAKER) (test 68 % gzut=815) LYMPHOCYTES RELATIVE PERCENT (BEAKER) (test 13 % fbwj=939) MONOCYTES RELATIVE PERCENT (BEAKER) (test 11 % rtvl=788) EOSINOPHILS RELATIVE PERCENT (BEAKER) (test 8 % khqf=775) BASOPHILS RELATIVE PERCENT (BEAKER) (test 0 % zzyr=540) NEUTROPHILS ABSOLUTE COUNT (BEAKER) (test 2.64 K/ L 1.80-8.00 ptzn=867) LYMPHOCYTES ABSOLUTE COUNT (BEAKER) (test 0.52 K/ L 1.48-4.50 zgnu=395) MONOCYTES ABSOLUTE COUNT (BEAKER) (test 0.42 K/ L 0.00-1.30 whdm=805) EOSINOPHILS ABSOLUTE COUNT (BEAKER) (test 0.31 K/ L 0.00-0.50 fzhg=546) BASOPHILS ABSOLUTE COUNT (BEAKER) (test 0.02 K/ L 0.00-0.20 veqr=486) 0.00POCT-GLUCOSE [id number] 06:28:00 Test Item Value Reference Range Comments POC-GLUCOSE METER (BEAKER) 130 mg/dL 70-110 TESTED AT [address] (test ddsc=5431) [facility] [address] POCT-GLUCOSE [id number] 00:19:00 Test Item Value Reference Range Comments POC-GLUCOSE METER (BEAKER) 124 mg/dL 70-110 TESTED AT [address] (test bufi=8204) [facility] [address] POCT-GLUCOSE [id number] 18:43:00 Test Item Value Reference Range Comments POC-GLUCOSE METER (BEAKER) 92 mg/dL 70-110 TESTED AT [facility] [address] [facility] (test yesi=0308) [facility] [address] POCT-GLUCOSE [id number] 12:34:00 Test Item Value Reference Range Comments POC-GLUCOSE METER (BEAKER) 176 mg/dL 70-110 TESTED AT [facility] [address] [facility] (test rbug=0656) [facility] [address] CBC W/PLT COUNT & AUTO [id number] 09:33:00 Test Item Value Reference Range Comments WHITE BLOOD CELL COUNT (BEAKER) (test coll=868) 4.3 K/ L 4.0-10.0 RED BLOOD CELL COUNT (BEAKER) (test fdub=416) 3.67 M/ L 4.20-5.80 HEMOGLOBIN (BEAKER) (test alwx=229) 11.2 GM/DL 13.0-16.8 HEMATOCRIT (BEAKER) (test spba=725) 32.8 % 40.0-50.0 MEAN CORPUSCULAR VOLUME (BEAKER) (test zzxu=576) 89.4 fL 82.0-98.0 MEAN CORPUSCULAR HEMOGLOBIN (BEAKER) (test 30.5 pg 27.0-33.0 ucsm=731) MEAN CORPUSCULAR HEMOGLOBIN CONC (BEAKER) (test 34.1 GM/DL 32.0-36.0 lajl=718) RED CELL DISTRIBUTION WIDTH (BEAKER) (test 11.7 % 10.3-14.2 ejfg=409) PLATELET COUNT (BEAKER) (test wpat=246) 199 K/CU MM 150-430 MEAN PLATELET VOLUME (BEAKER) (test xvak=383) 6.2 fL 6.5-10.5 NUCLEATED RED BLOOD CELLS (BEAKER) (test 0 /100 WBC 0-0 mdva=114) NEUTROPHILS RELATIVE PERCENT (BEAKER) (test 77 % pfbq=266) LYMPHOCYTES RELATIVE PERCENT (BEAKER) (test 10 % tnjf=757) MONOCYTES RELATIVE PERCENT (BEAKER) (test 9 % xyhg=835) EOSINOPHILS RELATIVE PERCENT (BEAKER) (test 3 % yhck=109) BASOPHILS RELATIVE PERCENT (BEAKER) (test 0 % ctns=596) NEUTROPHILS ABSOLUTE COUNT (BEAKER) (test 3.34 K/ L 1.80-8.00 akru=981) LYMPHOCYTES ABSOLUTE COUNT (BEAKER) (test 0.43 K/ L 1.48-4.50 xxlk=039) MONOCYTES ABSOLUTE COUNT (BEAKER) (test 0.40 K/ L 0.00-1.30 fajx=114) EOSINOPHILS ABSOLUTE COUNT (BEAKER) (test 0.14 K/ L 0.00-0.50 cbfz=527) BASOPHILS ABSOLUTE COUNT (BEAKER) (test 0.02 K/ L 0.00-0.20 frwp=798) 0.00COMPREHENSIVE METABOLIC [id number] 08:56:00 Test Item Value Reference Range Comments TOTAL PROTEIN (BEAKER) 6.4 gm/dL 6.0-8.3 Specimen slightly (test zike=104) hemolyzed ALBUMIN (BEAKER) (test 3.3 g/dL 3.5-5.0 Specimen slightly hpfj=6169) hemolyzed ALKALINE PHOSPHATASE 61 U/L 40-150 (BEAKER) (test gkys=273) BILIRUBIN TOTAL (BEAKER) 0.5 mg/dL 0.2-1.2 Specimen slightly (test xevz=687) hemolyzed SODIUM (BEAKER) (test 135 meq/L 136-145 ujhp=995) POTASSIUM (BEAKER) (test 4.6 meq/L 3.5-5.1 Specimen slightly qdon=814) hemolyzed CHLORIDE (BEAKER) (test 106 meq/L 98-107 imkx=433) CO2 (BEAKER) (test 17 meq/L 22-29 wgyv=479) BLOOD UREA NITROGEN 10 mg/dL 7-21 (BEAKER) (test pldy=874) CREATININE (BEAKER) (test 0.80 mg/dL 0.57-1.25 Specimen slightly iuhz=178) hemolyzed GLUCOSE RANDOM (BEAKER) 97 mg/dL 70-105 (test bigs=686) CALCIUM (BEAKER) (test 8.6 mg/dL 8.4-10.2 kotj=769) AST (SGOT) (BEAKER) (test 37 U/L 5-34 Specimen slightly qcxs=074) hemolyzed ALT (SGPT) (BEAKER) (test 20 U/L 6-55 Specimen slightly slfl=047) hemolyzed EGFR (BEAKER) (test 96 mL/min/1.73 sq m ESTIMATED GFR IS NOT qbbr=2839) ACCURATE CREATININE CLEARANCE IN PREDICTING GLOMERULAR FILTRATION RATE. ESTIMATED GFR IS NOT APPLICABLE FOR DIALYSIS PATIENTS. POCT-GLUCOSE [id number] 05:58:00 Test Item Value Reference Range Comments POC-GLUCOSE METER (BEAKER) 96 mg/dL 70-110 TESTED AT [address] (test ffto=0702) [place] [id number] POCT-GLUCOSE [id number] 00:23:00 Test Item Value Reference Range Comments POC-GLUCOSE METER (BEAKER) 110 mg/dL 70-110 TESTED AT [address] (test mtyn=2343) [place] [address] POCT-GLUCOSE [id number] 17:48:00 Test Item Value Reference Range Comments POC-GLUCOSE METER (BEAKER) 100 mg/dL 70-110 TESTED AT [address] (test gjrr=9839) [place] [address] POCT-GLUCOSE [id number] 12:09:00 Test Item Value Reference Range Comments POC-GLUCOSE METER (BEAKER) 103 mg/dL 70-110 TESTED AT [address] (test wzue=2334) [place] [address] URINE [id number] 08:43:00 Test Item Value Reference Range Comments CULTURE (BEAKER) (test gyzk=2307) No growth BASIC METABOLIC [id number] 06:59:00 Test Item Value Reference Range Comments SODIUM (BEAKER) (test 139 meq/L 136-145 gvdn=953) POTASSIUM (BEAKER) (test 4.0 meq/L 3.5-5.1 heni=579) CHLORIDE (BEAKER) (test 107 meq/L 98-107 fytu=261) CO2 (BEAKER) (test 23 meq/L 22-29 zcfo=822) BLOOD UREA NITROGEN 9 mg/dL 7-21 (BEAKER) (test jduc=762) CREATININE (BEAKER) (test 0.79 mg/dL 0.57-1.25 qffr=214) GLUCOSE RANDOM (BEAKER) 111 mg/dL 70-105 (test xnug=764) CALCIUM (BEAKER) (test 8.6 mg/dL 8.4-10.2 bmwe=575) EGFR (BEAKER) (test 97 mL/min/1.73 sq m ESTIMATED GFR IS NOT ijuy=7532) ACCURATE CREATININE CLEARANCE IN PREDICTING GLOMERULAR FILTRATION RATE. ESTIMATED GFR IS NOT APPLICABLE FOR DIALYSIS PATIENTS. POCT-GLUCOSE [id number] 06:02:00 Test Item Value Reference Range Comments POC-GLUCOSE METER (BEAKER) 102 mg/dL 70-110 TESTED AT [facility] [address] (test newf=8908) [place] [address] PHENYTOIN LEVEL, [id number] 05:51:00 Test Item Value Reference Range Comments PHENYTOIN (DILANTIN) (BEAKER) (test xsdg=624) 7.3 ug/mL 10.0-20.0 CBC W/PLT COUNT & AUTO [id number] 05:41:00 Test Item Value Reference Range Comments WHITE BLOOD CELL COUNT (BEAKER) (test qtto=533) 4.9 K/ L 4.0-10.0 RED BLOOD CELL COUNT (BEAKER) (test aihs=768) 3.61 M/ L 4.20-5.80 HEMOGLOBIN (BEAKER) (test kfvx=550) 11.5 GM/DL 13.0-16.8 HEMATOCRIT (BEAKER) (test xlyz=255) 31.7 % 40.0-50.0 MEAN CORPUSCULAR VOLUME (BEAKER) (test ofqs=370) 87.9 fL 82.0-98.0 MEAN CORPUSCULAR HEMOGLOBIN (BEAKER) (test 31.8 pg 27.0-33.0 weuf=752) MEAN CORPUSCULAR HEMOGLOBIN CONC (BEAKER) (test 36.2 GM/DL 32.0-36.0 mwsu=280) RED CELL DISTRIBUTION WIDTH (BEAKER) (test 13.1 % 10.3-14.2 wjwm=342) PLATELET COUNT (BEAKER) (test sqzv=130) 200 K/CU MM 150-430 MEAN PLATELET VOLUME (BEAKER) (test uqxq=043) 6.7 fL 6.5-10.5 NUCLEATED RED BLOOD CELLS (BEAKER) (test 0 /100 WBC 0-0 tipl=422) NEUTROPHILS RELATIVE PERCENT (BEAKER) (test 75 % mvmu=226) LYMPHOCYTES RELATIVE PERCENT (BEAKER) (test 10 % lfcd=927) MONOCYTES RELATIVE PERCENT (BEAKER) (test 10 % ygud=427) EOSINOPHILS RELATIVE PERCENT (BEAKER) (test 5 % xzdw=657) BASOPHILS RELATIVE PERCENT (BEAKER) (test 0 % eejp=954) NEUTROPHILS ABSOLUTE COUNT (BEAKER) (test 3.69 K/ L 1.80-8.00 nypn=056) LYMPHOCYTES ABSOLUTE COUNT (BEAKER) (test 0.52 K/ L 1.48-4.50 zogu=144) MONOCYTES ABSOLUTE COUNT (BEAKER) (test 0.50 K/ L 0.00-1.30 dutu=550) EOSINOPHILS ABSOLUTE COUNT (BEAKER) (test 0.23 K/ L 0.00-0.50 amsi=334) BASOPHILS ABSOLUTE COUNT (BEAKER) (test 0.01 K/ L 0.00-0.20 hwvy=221) 0.00POCT-GLUCOSE [id number] 03:20:00 Test Item Value Reference Range Comments POC-GLUCOSE METER (BEAKER) 121 mg/dL 70-110 TESTED AT [address] (test xquy=3889) [place] [address] POCT-GLUCOSE [id number] 18:47:00 Test Item Value Reference Range Comments POC-GLUCOSE METER (BEAKER) 116 mg/dL 70-110 TESTED AT [address] (test ddgm=6196) [place] [address] PLATELET AGGREGATION: FUNCTION [id number] 13:09:00 Test Item Value Reference Range Comments WEAK ADP RESULT(BEAKER) (test 100 % 60-91 irpv=8350) PLATELET FUNCTION SCREEN 60-100% indicates normal INTERP (BEAKER) (test platelet function oido=9277) [id number] (BEAKER) Justin Goel MD (electronic (test lsig=7539) signature) PLATELET COUNT AGG (BEAKER) 181 K/CU MM 150-430 (test okxh=8691) PHENYTOIN LEVEL, [id number] 13:01:00 Test Item Value Reference Range Comments PHENYTOIN (DILANTIN) (BEAKER) (test xyvp=792) 8.6 ug/mL 10.0-20.0 POCT-GLUCOSE [id number] 12:17:00 Test Item Value Reference Range Comments POC-GLUCOSE METER (BEAKER) 103 mg/dL 70-110 TESTED AT [address] (test yhmz=8200) [place] [address] POCT-GLUCOSE [id number] 06:29:00 Test Item Value Reference Range Comments POC-GLUCOSE METER (BEAKER) 93 mg/dL 70-110 TESTED AT [facility] [address] (test shnr=1152) [facility] [address] [id number] 05:36:00 Test Item Value Reference Range Comments MAGNESIUM (BEAKER) (test ukbc=279) 1.7 mg/dL 1.6-2.6 BASIC METABOLIC [id number] 05:36:00 Test Item Value Reference Range Comments SODIUM (BEAKER) (test 136 meq/L 136-145 pcyz=457) POTASSIUM (BEAKER) (test 3.9 meq/L 3.5-5.1 oali=835) CHLORIDE (BEAKER) (test 105 meq/L 98-107 wcow=790) CO2 (BEAKER) (test 18 meq/L 22-29 idiz=261) BLOOD UREA NITROGEN 11 mg/dL 7-21 (BEAKER) (test sxmm=609) CREATININE (BEAKER) (test 0.80 mg/dL 0.57-1.25 vfso=542) GLUCOSE RANDOM (BEAKER) 87 mg/dL 70-105 (test rtqx=778) CALCIUM (BEAKER) (test 8.7 mg/dL 8.4-10.2 qgax=627) EGFR (BEAKER) (test 96 mL/min/1.73 sq m ESTIMATED GFR IS NOT clrm=4202) ACCURATE CREATININE CLEARANCE IN PREDICTING GLOMERULAR FILTRATION RATE. ESTIMATED GFR IS NOT APPLICABLE FOR DIALYSIS PATIENTS. CBC W/PLT COUNT & AUTO [id number] 05:22:00 Test Item Value Reference Range Comments WHITE BLOOD CELL COUNT (BEAKER) (test ahrk=900) 5.3 K/ L 4.0-10.0 RED BLOOD CELL COUNT (BEAKER) (test yhpv=587) 3.69 M/ L 4.20-5.80 HEMOGLOBIN (BEAKER) (test pnel=200) 11.6 GM/DL 13.0-16.8 HEMATOCRIT (BEAKER) (test jubd=849) 33.4 % 40.0-50.0 MEAN CORPUSCULAR VOLUME (BEAKER) (test ypjh=480) 90.6 fL 82.0-98.0 MEAN CORPUSCULAR HEMOGLOBIN (BEAKER) (test 31.4 pg 27.0-33.0 qjub=133) MEAN CORPUSCULAR HEMOGLOBIN CONC (BEAKER) (test 34.6 GM/DL 32.0-36.0 tlnf=551) RED CELL DISTRIBUTION WIDTH (BEAKER) (test 11.9 % 10.3-14.2 wgvs=673) PLATELET COUNT (BEAKER) (test vxiv=627) 164 K/CU MM 150-430 MEAN PLATELET VOLUME (BEAKER) (test ufue=865) 7.3 fL 6.5-10.5 NUCLEATED RED BLOOD CELLS (BEAKER) (test 0 /100 WBC 0-0 ouae=507) NEUTROPHILS RELATIVE PERCENT (BEAKER) (test 76 % cbzc=912) LYMPHOCYTES RELATIVE PERCENT (BEAKER) (test 11 % agxs=567) MONOCYTES RELATIVE PERCENT (BEAKER) (test 9 % yszf=175) EOSINOPHILS RELATIVE PERCENT (BEAKER) (test 5 % vsde=195) BASOPHILS RELATIVE PERCENT (BEAKER) (test 0 % npvd=992) NEUTROPHILS ABSOLUTE COUNT (BEAKER) (test 4.02 K/ L 1.80-8.00 yhgx=567) LYMPHOCYTES ABSOLUTE COUNT (BEAKER) (test 0.57 K/ L 1.48-4.50 ufpk=702) MONOCYTES ABSOLUTE COUNT (BEAKER) (test 0.48 K/ L 0.00-1.30 nmbl=760) EOSINOPHILS ABSOLUTE COUNT (BEAKER) (test 0.24 K/ L 0.00-0.50 vsan=053) BASOPHILS ABSOLUTE COUNT (BEAKER) (test 0.01 K/ L 0.00-0.20 gjkv=222) 0.00POCT-GLUCOSE [id number] 00:30:00 Test Item Value Reference Range Comments POC-GLUCOSE METER (BEAKER) 97 mg/dL 70-110 TESTED AT [address] (test erei=2675) [place] [id number] POCT-GLUCOSE [id number] 18:12:00 Test Item Value Reference Range Comments POC-GLUCOSE METER (BEAKER) 97 mg/dL 70-110 TESTED AT [address] (test wrqm=8668) [place] [id number] PLATELET AGGREGATION: FUNCTION [id number] 13:04:00 Test Item Value Reference Range Comments WEAK ADP RESULT(BEAKER) (test 100 % 60-91 mkmp=7508) PLATELET FUNCTION SCREEN 60-100% indicates normal INTERP (BEAKER) (test platelet function jlrk=3205) [id number] (BEAKER) Justin Goel MD (electronic (test vooi=0302) signature) PLATELET COUNT AGG (BEAKER) 142 K/CU MM 150-430 (test vsgv=4657) POCT-GLUCOSE [id number] 12:12:00 Test Item Value Reference Range Comments POC-GLUCOSE METER (BEAKER) 98 mg/dL 70-110 TESTED AT [facility] [address] [facility] (test lsbw=4618) [facility] [address] [id number] 10:53:00 Test Item Value Reference Range Comments D-DIMER QUANTITATIVE (BEAKER) (test agys=671) 2.83 MG/L FEU <0.50 Intended Use: The D-Dimer Assay can be used to aid in the diagnosis of Deep Vein Thrombosis (DVT) and Pulmonary Embolism Disease (PED).In patients with low pre-test probability, various studies concerning STA Liatest D-dimer test have reported that with a cutoff value of 0.50 MG/L FEU, the Negative Predictive Value (NPV) regarding the exclusion of thrombosis is within 95-100% range.THROMBIN [id number] 10:51:00 Test Item Value Reference Range Comments THROMBIN TIME (BEAKER) (test yjga=611) 15.0 secs 13.8-20.0 [id number] 10:50:00 Test Item Value Reference Range Comments FIBRINOGEN LEVEL (BEAKER) (test izid=906) 462 mg/dl 225-434 URINALYSIS W/ [id number] 09:54:00 Test Item Value Reference Range Comments COLOR (BEAKER) (test tizm=728) Yellow CLARITY (BEAKER) (test ymyz=132) Cloudy SPECIFIC GRAVITY UA (BEAKER) (test dcil=055) 1.017 1.001-1.035 PH UA (BEAKER) (test ftsr=760) 5.0 5.0-8.0 PROTEIN UA (BEAKER) (test zdfo=708) 20 mg/dL Negative GLUCOSE UA (BEAKER) (test xazf=029) Negative Negative KETONES UA (BEAKER) (test xeeh=052) 60 mg/dL Negative BILIRUBIN UA (BEAKER) (test jkob=191) Negative Negative BLOOD UA (BEAKER) (test usdk=741) Small Negative NITRITE UA (BEAKER) (test cizg=037) Negative Negative LEUKOCYTE ESTERASE UA (BEAKER) (test lrko=356) Large Negative UROBILINOGEN UA (BEAKER) (test leey=681) 0.2 mg/dL 0.2-1.0 RBC UA (BEAKER) (test abja=030) 5 /HPF WBC UA (BEAKER) (test bgpv=804) 55 /HPF BACTERIA (BEAKER) (test gcec=866) Moderate MUCUS (BEAKER) (test phld=7333) Occasional SQUAMOUS EPITHELIAL (BEAKER) (test fnlr=838) < /HPF HYALINE CASTS (BEAKER) (test sily=495) 1 /LPF URIC ACID CRYSTALS (BEAKER) (test yyqj=8727) Occasional SOURCE(BEAKER) (test qqmz=6243) Urine, [place] CBC W/PLT COUNT & AUTO [id number] 09:17:00 Test Item Value Reference Range Comments WHITE BLOOD CELL COUNT (BEAKER) (test qbja=766) 6.3 K/ L 4.0-10.0 RED BLOOD CELL COUNT (BEAKER) (test ykea=616) 3.63 M/ L 4.20-5.80 HEMOGLOBIN (BEAKER) (test slrx=869) 11.3 GM/DL 13.0-16.8 HEMATOCRIT (BEAKER) (test zvyw=929) 32.9 % 40.0-50.0 MEAN CORPUSCULAR VOLUME (BEAKER) (test dnkn=977) 90.6 fL 82.0-98.0 MEAN CORPUSCULAR HEMOGLOBIN (BEAKER) (test 31.0 pg 27.0-33.0 adna=937) MEAN CORPUSCULAR HEMOGLOBIN CONC (BEAKER) (test 34.3 GM/DL 32.0-36.0 jmml=046) RED CELL DISTRIBUTION WIDTH (BEAKER) (test 12.0 % 10.3-14.2 xarx=279) PLATELET COUNT (BEAKER) (test hblj=131) 133 K/CU MM 150-430 MEAN PLATELET VOLUME (BEAKER) (test fdhi=745) 7.2 fL 6.5-10.5 NUCLEATED RED BLOOD CELLS (BEAKER) (test 0 /100 WBC 0-0 nspl=624) NEUTROPHILS RELATIVE PERCENT (BEAKER) (test 76 % ffex=631) LYMPHOCYTES RELATIVE PERCENT (BEAKER) (test 9 % eyea=188) MONOCYTES RELATIVE PERCENT (BEAKER) (test 10 % draw=433) EOSINOPHILS RELATIVE PERCENT (BEAKER) (test 4 % hcsr=086) BASOPHILS RELATIVE PERCENT (BEAKER) (test 1 % qazu=141) NEUTROPHILS ABSOLUTE COUNT (BEAKER) (test 4.78 K/ L 1.80-8.00 ycjh=541) LYMPHOCYTES ABSOLUTE COUNT (BEAKER) (test 0.58 K/ L 1.48-4.50 yrnz=988) MONOCYTES ABSOLUTE COUNT (BEAKER) (test 0.60 K/ L 0.00-1.30 mlmd=768) EOSINOPHILS ABSOLUTE COUNT (BEAKER) (test 0.26 K/ L 0.00-0.50 ikxc=790) BASOPHILS ABSOLUTE COUNT (BEAKER) (test 0.04 K/ L 0.00-0.20 vouc=738) 0.00PHENYTOIN LEVEL, [id number] 05:46:00 Test Item Value Reference Range Comments PHENYTOIN (DILANTIN) (BEAKER) (test igkq=450) 1.1 ug/mL 10.0-20.0 BASIC METABOLIC [id number] 05:39:00 Test Item Value Reference Range Comments SODIUM (BEAKER) (test 134 meq/L 136-145 zrts=477) POTASSIUM (BEAKER) (test 3.8 meq/L 3.5-5.1 dvih=161) CHLORIDE (BEAKER) (test 105 meq/L 98-107 yaww=964) CO2 (BEAKER) (test 20 meq/L 22-29 yhhe=987) BLOOD UREA NITROGEN 11 mg/dL 7-21 (BEAKER) (test erci=858) CREATININE (BEAKER) (test 0.74 mg/dL 0.57-1.25 dbtb=311) GLUCOSE RANDOM (BEAKER) 98 mg/dL 70-105 (test wdrj=585) CALCIUM (BEAKER) (test 8.5 mg/dL 8.4-10.2 ukhb=916) EGFR (BEAKER) (test 105 mL/min/1.73 sq m ESTIMATED GFR IS NOT mrfb=2597) ACCURATE CREATININE CLEARANCE IN PREDICTING GLOMERULAR FILTRATION RATE. ESTIMATED GFR IS NOT APPLICABLE FOR DIALYSIS PATIENTS. POCT-GLUCOSE [id number] 00:45:00 Test Item Value Reference Range Comments POC-GLUCOSE METER (BEAKER) 93 mg/dL 70-110 TESTED AT [address] (test bhga=7737) [facility] [address] POCT-GLUCOSE [id number] 18:47:00 Test Item Value Reference Range Comments POC-GLUCOSE METER (BEAKER) 113 mg/dL 70-110 TESTED AT [address] (test xsvk=2829) [facility] [address] POCT-GLUCOSE [id number] 12:26:00 Test Item Value Reference Range Comments POC-GLUCOSE METER (BEAKER) 125 mg/dL 70-110 TESTED AT [address] (test dypt=8312) [facility] [address] POCT-GLUCOSE [id number] 06:19:00 Test Item Value Reference Range Comments POC-GLUCOSE METER (BEAKER) 128 mg/dL 70-110 TESTED AT [address] (test ofwa=4983) [facility] [address] COMPREHENSIVE METABOLIC [id number] 04:41:00 Test Item Value Reference Range Comments TOTAL PROTEIN (BEAKER) 6.1 gm/dL 6.0-8.3 (test trop=204) ALBUMIN (BEAKER) (test 3.4 g/dL 3.5-5.0 iteb=5933) ALKALINE PHOSPHATASE 56 U/L 40-150 (BEAKER) (test wrhr=052) BILIRUBIN TOTAL (BEAKER) 0.7 mg/dL 0.2-1.2 (test dpzf=204) SODIUM (BEAKER) (test 137 meq/L 136-145 gfbs=941) POTASSIUM (BEAKER) (test 4.3 meq/L 3.5-5.1 wqbz=871) CHLORIDE (BEAKER) (test 110 meq/L 98-107 lahk=545) CO2 (BEAKER) (test 15 meq/L 22-29 mswy=474) BLOOD UREA NITROGEN 14 mg/dL 7-21 (BEAKER) (test bhvu=530) CREATININE (BEAKER) (test 0.88 mg/dL 0.57-1.25 oais=152) GLUCOSE RANDOM (BEAKER) 122 mg/dL 70-105 (test cmau=436) CALCIUM (BEAKER) (test 8.9 mg/dL 8.4-10.2 ngjd=095) AST (SGOT) (BEAKER) (test 37 U/L 5-34 goda=697) ALT (SGPT) (BEAKER) (test 19 U/L 6-55 uujs=233) EGFR (BEAKER) (test 86 mL/min/1.73 sq m ESTIMATED GFR IS NOT jzsb=3544) ACCURATE CREATININE CLEARANCE IN PREDICTING GLOMERULAR FILTRATION RATE. ESTIMATED GFR IS NOT APPLICABLE FOR DIALYSIS PATIENTS. CBC W/PLT COUNT & AUTO [id number] 04:33:00 Test Item Value Reference Range Comments WHITE BLOOD CELL COUNT (BEAKER) (test kkve=739) 6.4 K/ L 4.0-10.0 RED BLOOD CELL COUNT (BEAKER) (test vebs=152) 4.07 M/ L 4.20-5.80 HEMOGLOBIN (BEAKER) (test hhdk=981) 12.3 GM/DL 13.0-16.8 HEMATOCRIT (BEAKER) (test hgfy=712) 36.7 % 40.0-50.0 MEAN CORPUSCULAR VOLUME (BEAKER) (test ntbn=396) 90.1 fL 82.0-98.0 MEAN CORPUSCULAR HEMOGLOBIN (BEAKER) (test 30.3 pg 27.0-33.0 usyj=493) MEAN CORPUSCULAR HEMOGLOBIN CONC (BEAKER) (test 33.7 GM/DL 32.0-36.0 ircq=720) RED CELL DISTRIBUTION WIDTH (BEAKER) (test 12.1 % 10.3-14.2 lgks=446) PLATELET COUNT (BEAKER) (test kcfv=493) 152 K/CU MM 150-430 MEAN PLATELET VOLUME (BEAKER) (test gkhg=044) 7.0 fL 6.5-10.5 NUCLEATED RED BLOOD CELLS (BEAKER) (test 0 /100 WBC 0-0 minl=063) NEUTROPHILS RELATIVE PERCENT (BEAKER) (test 82 % ugnz=519) LYMPHOCYTES RELATIVE PERCENT (BEAKER) (test 6 % vabi=973) MONOCYTES RELATIVE PERCENT (BEAKER) (test 11 % lvsc=041) EOSINOPHILS RELATIVE PERCENT (BEAKER) (test 1 % bntb=507) BASOPHILS RELATIVE PERCENT (BEAKER) (test 0 % dbmf=360) NEUTROPHILS ABSOLUTE COUNT (BEAKER) (test 5.23 K/ L 1.80-8.00 lqsg=306) LYMPHOCYTES ABSOLUTE COUNT (BEAKER) (test 0.39 K/ L 1.48-4.50 utcs=277) MONOCYTES ABSOLUTE COUNT (BEAKER) (test 0.68 K/ L 0.00-1.30 fpav=580) EOSINOPHILS ABSOLUTE COUNT (BEAKER) (test 0.04 K/ L 0.00-0.50 bqbk=041) BASOPHILS ABSOLUTE COUNT (BEAKER) (test 0.02 K/ L 0.00-0.20 wfvv=063) 0.00POCT-GLUCOSE [id number] 00:50:00 Test Item Value Reference Range Comments POC-GLUCOSE METER (BEAKER) 117 mg/dL 70-110 TESTED AT [address] (test pgdy=1993) [place] [id number] POCT-GLUCOSE [id number] 17:18:00 Test Item Value Reference Range Comments POC-GLUCOSE METER (BEAKER) 101 mg/dL 70-110 TESTED AT [address] (test fqqt=3567) [place] [id number] POCT-GLUCOSE [id number] 12:59:00 Test Item Value Reference Range Comments POC-GLUCOSE METER (BEAKER) 80 mg/dL 70-110 TESTED AT [address] (test xqbg=5481) [facility] [address] POCT-GLUCOSE [id number] 12:07:00 Test Item Value Reference Range Comments POC-GLUCOSE METER (BEAKER) 76 mg/dL 70-110 TESTED AT [address] (test dgpf=9901) [place] [id number] POCT-GLUCOSE [id number] 06:18:00 Test Item Value Reference Range Comments POC-GLUCOSE METER (BEAKER) 86 mg/dL 70-110 TESTED AT [address] (test qqww=7433) [place] [id number] 06:06:00 Test Item Value Reference Range Comments PHOSPHORUS (BEAKER) (test nhqz=014) 2.8 mg/dL 2.3-4.7 Once on admission and Daily AM afterwardsOnce on admission and Daily AM [id number] 06:06:00 Test Item Value Reference Range Comments MAGNESIUM (BEAKER) (test muvo=994) 1.8 mg/dL 1.6-2.6 Once on admission and Daily AM afterwardsOnce on admission and Daily AM afterwardsCOMPREHENSIVE METABOLIC [id number] 06:06:00 Test Item Value Reference Range Comments TOTAL PROTEIN (BEAKER) 6.5 gm/dL 6.0-8.3 (test cgos=158) ALBUMIN (BEAKER) (test 3.6 g/dL 3.5-5.0 vyhd=5793) ALKALINE PHOSPHATASE 56 U/L 40-150 (BEAKER) (test qwov=338) BILIRUBIN TOTAL (BEAKER) 0.8 mg/dL 0.2-1.2 (test exym=137) SODIUM (BEAKER) (test 137 meq/L 136-145 bxjn=017) POTASSIUM (BEAKER) (test 4.6 meq/L 3.5-5.1 bclw=552) CHLORIDE (BEAKER) (test 107 meq/L 98-107 gnco=036) CO2 (BEAKER) (test 21 meq/L 22-29 jjqa=599) BLOOD UREA NITROGEN 16 mg/dL 7-21 (BEAKER) (test obxb=559) CREATININE (BEAKER) (test 0.88 mg/dL 0.57-1.25 rkey=871) GLUCOSE RANDOM (BEAKER) 86 mg/dL 70-105 (test cfnl=561) CALCIUM (BEAKER) (test 8.8 mg/dL 8.4-10.2 lzfx=737) AST (SGOT) (BEAKER) (test 27 U/L 5-34 bqsn=413) ALT (SGPT) (BEAKER) (test 15 U/L 6-55 uuzb=134) EGFR (BEAKER) (test 86 mL/min/1.73 sq m ESTIMATED GFR IS NOT gzzo=5634) ACCURATE CREATININE CLEARANCE IN PREDICTING GLOMERULAR FILTRATION RATE. ESTIMATED GFR IS NOT APPLICABLE FOR DIALYSIS PATIENTS. Once on admission and Daily AM afterwardsOnce on admission and Daily AM afterwardsCBC W/PLT COUNT & AUTO [id number] 06:01:00 Test Item Value Reference Range Comments WHITE BLOOD CELL COUNT (BEAKER) (test ioiq=462) 4.8 K/ L 4.0-10.0 RED BLOOD CELL COUNT (BEAKER) (test zjiu=367) 4.26 M/ L 4.20-5.80 HEMOGLOBIN (BEAKER) (test pxpd=762) 12.8 GM/DL 13.0-16.8 HEMATOCRIT (BEAKER) (test rnjt=040) 37.8 % 40.0-50.0 MEAN CORPUSCULAR VOLUME (BEAKER) (test hjjk=283) 88.6 fL 82.0-98.0 MEAN CORPUSCULAR HEMOGLOBIN (BEAKER) (test 29.9 pg 27.0-33.0 qvmh=432) MEAN CORPUSCULAR HEMOGLOBIN CONC (BEAKER) (test 33.8 GM/DL 32.0-36.0 naci=150) RED CELL DISTRIBUTION WIDTH (BEAKER) (test 12.9 % 10.3-14.2 aoyk=196) PLATELET COUNT (BEAKER) (test zbwi=595) 142 K/CU MM 150-430 MEAN PLATELET VOLUME (BEAKER) (test ffwn=141) 7.1 fL 6.5-10.5 NUCLEATED RED BLOOD CELLS (BEAKER) (test 0 /100 WBC 0-0 nlly=247) NEUTROPHILS RELATIVE PERCENT (BEAKER) (test 79 % cdiz=968) LYMPHOCYTES RELATIVE PERCENT (BEAKER) (test 10 % xtfl=025) MONOCYTES RELATIVE PERCENT (BEAKER) (test 9 % ezmw=301) EOSINOPHILS RELATIVE PERCENT (BEAKER) (test 2 % aqiu=410) BASOPHILS RELATIVE PERCENT (BEAKER) (test 0 % cpkj=576) NEUTROPHILS ABSOLUTE COUNT (BEAKER) (test 3.74 K/ L 1.80-8.00 sqgq=716) LYMPHOCYTES ABSOLUTE COUNT (BEAKER) (test 0.48 K/ L 1.48-4.50 onib=379) MONOCYTES ABSOLUTE COUNT (BEAKER) (test 0.44 K/ L 0.00-1.30 lhgb=103) EOSINOPHILS ABSOLUTE COUNT (BEAKER) (test 0.08 K/ L 0.00-0.50 cvzv=818) BASOPHILS ABSOLUTE COUNT (BEAKER) (test 0.01 K/ L 0.00-0.20 adfl=359) [id number] 01:40:00 Test Item Value Reference Range Comments POTASSIUM (BEAKER) (test dkkq=258) 4.0 meq/L 3.5-5.1 [id number] 01:40:00 Test Item Value Reference Range Comments SODIUM (BEAKER) (test cvpu=412) 138 meq/L 136-145 POCT-GLUCOSE [id number] 00:19:00 Test Item Value Reference Range Comments POC-GLUCOSE METER (BEAKER) 89 mg/dL 70-110 TESTED AT [facility] [address] (test pwbu=9657) [place] [address] [id number] 21:37:00 Test Item Value Reference Range Comments SODIUM (BEAKER) (test eona=803) 137 meq/L 136-145 [id number] 19:02:00 Test Item Value Reference Range Comments PARTIAL THROMBOPLASTIN TIME (BEAKER) (test 24.9 seconds 22.5-36.0 ejmr=212) PROTHROMBIN [id number] 19:01:00 Test Item Value Reference Range Comments PROTIME (BEAKER) (test vooe=984) 13.8 seconds 11.7-14.7 INR (BEAKER) (test bqrc=647) 1.1 <=5.9 RECOMMENDED COUMADIN/WARFARIN INR THERAPY RANGESSTANDARD DOSE: 2.0 - 3.0 Includes: PROPHYLAXIS forvenous thrombosis, systemic embolization; TREATMENT for venous thrombosis and/or pulmonary embolus.HIGH RISK: Target INR is 2.5-3.5 for patients with mechanical heart valves.[id number] 19:00:00 Test Item Value Reference Range Comments POTASSIUM (BEAKER) (test vedj=891) 4.0 meq/L 3.5-5.1 [id number] 19:00:00 Test Item Value Reference Range Comments SODIUM (BEAKER) (test bssl=362) 137 meq/L 136-145 HEPATIC FUNCTION [id number] 19:00:00 Test Item Value Reference Range Comments TOTAL PROTEIN (BEAKER) (test vftj=225) 7.0 gm/dL 6.0-8.3 ALBUMIN (BEAKER) (test zpui=3803) 3.9 g/dL 3.5-5.0 BILIRUBIN TOTAL (BEAKER) (test ndta=424) 0.8 mg/dL 0.2-1.2 BILIRUBIN DIRECT (BEAKER) (test ecsv=810) 0.3 mg/dL 0.1-0.5 ALKALINE PHOSPHATASE (BEAKER) (test sllb=587) 60 U/L 40-150 AST (SGOT) (BEAKER) (test cyvw=969) 22 U/L 5-34 ALT (SGPT) (BEAKER) (test yvuh=055) 16 U/L 6-55 POCT-GLUCOSE [id number] 18:42:00 Test Item Value Reference Range Comments POC-GLUCOSE METER (BEAKER) 96 mg/dL 70-110 TESTED AT [facility] [address] (test wreh=1387) [facility] [address] PLATELET AGGREGATION: FUNCTION [id number] 11:40:00 Test Item Value Reference Range Comments WEAK ADP RESULT(BEAKER) (test 50 % 60-91 igau=3436) PLATELET FUNCTION SCREEN 50-59% indicates mild platelet INTERP (BEAKER) (test dysfunction iefa=1070) [id number]-ANZOHPOBDGA-[id number] Justin Goel MD (electronic (BEAKER) (test ugvp=4831) signature) PLATELET COUNT AGG (BEAKER) 124 K/CU MM 150-430 (test ykhr=0768) [id number] 05:44:00 Test Item Value Reference Range Comments PHOSPHORUS (BEAKER) (test krom=158) 3.1 mg/dL 2.3-4.7 [id number] 05:44:00 Test Item Value Reference Range Comments MAGNESIUM (BEAKER) (test ebkc=558) 1.9 mg/dL 1.6-2.6 COMPREHENSIVE METABOLIC [id number] 05:44:00 Test Item Value Reference Range Comments TOTAL PROTEIN (BEAKER) 6.6 gm/dL 6.0-8.3 (test gdvn=987) ALBUMIN (BEAKER) (test 3.7 g/dL 3.5-5.0 rmmf=6815) ALKALINE PHOSPHATASE 56 U/L 40-150 (BEAKER) (test knbf=102) BILIRUBIN TOTAL (BEAKER) 0.5 mg/dL 0.2-1.2 (test otcp=355) SODIUM (BEAKER) (test 137 meq/L 136-145 wwwd=573) POTASSIUM (BEAKER) (test 4.0 meq/L 3.5-5.1 zutc=699) CHLORIDE (BEAKER) (test 107 meq/L 98-107 shpx=432) CO2 (BEAKER) (test 21 meq/L 22-29 uowt=270) BLOOD UREA NITROGEN 20 mg/dL 7-21 (BEAKER) (test aixn=974) CREATININE (BEAKER) (test 0.94 mg/dL 0.57-1.25 laik=713) GLUCOSE RANDOM (BEAKER) 106 mg/dL 70-105 (test tzuf=519) CALCIUM (BEAKER) (test 8.8 mg/dL 8.4-10.2 wabi=461) AST (SGOT) (BEAKER) (test 16 U/L 5-34 hxti=245) ALT (SGPT) (BEAKER) (test 12 U/L 6-55 gdws=737) EGFR (BEAKER) (test 80 mL/min/1.73 sq m ESTIMATED GFR IS NOT yxcn=7574) ACCURATE CREATININE CLEARANCE IN PREDICTING GLOMERULAR FILTRATION RATE. ESTIMATED GFR IS NOT APPLICABLE FOR DIALYSIS PATIENTS. CBC W/PLT COUNT & AUTO [id number] 05:29:00 Test Item Value Reference Range Comments WHITE BLOOD CELL COUNT (BEAKER) (test ahoq=055) 3.5 K/ L 4.0-10.0 RED BLOOD CELL COUNT (BEAKER) (test nlnh=788) 4.21 M/ L 4.20-5.80 HEMOGLOBIN (BEAKER) (test ovvj=559) 12.8 GM/DL 13.0-16.8 HEMATOCRIT (BEAKER) (test lztz=076) 37.2 % 40.0-50.0 MEAN CORPUSCULAR VOLUME (BEAKER) (test zsfm=166) 88.2 fL 82.0-98.0 MEAN CORPUSCULAR HEMOGLOBIN (BEAKER) (test 30.3 pg 27.0-33.0 qkhy=782) MEAN CORPUSCULAR HEMOGLOBIN CONC (BEAKER) (test 34.3 GM/DL 32.0-36.0 nhfp=767) RED CELL DISTRIBUTION WIDTH (BEAKER) (test 12.9 % 10.3-14.2 wwrk=044) PLATELET COUNT (BEAKER) (test khnt=327) 128 K/CU MM 150-430 MEAN PLATELET VOLUME (BEAKER) (test irkg=268) 7.1 fL 6.5-10.5 NUCLEATED RED BLOOD CELLS (BEAKER) (test 0 /100 WBC 0-0 qvqf=988) NEUTROPHILS RELATIVE PERCENT (BEAKER) (test 70 % cwux=649) LYMPHOCYTES RELATIVE PERCENT (BEAKER) (test 16 % yhge=020) MONOCYTES RELATIVE PERCENT (BEAKER) (test 10 % khmc=487) EOSINOPHILS RELATIVE PERCENT (BEAKER) (test 5 % brzw=075) BASOPHILS RELATIVE PERCENT (BEAKER) (test 0 % bswo=179) NEUTROPHILS ABSOLUTE COUNT (BEAKER) (test 2.42 K/ L 1.80-8.00 vtmi=049) LYMPHOCYTES ABSOLUTE COUNT (BEAKER) (test 0.54 K/ L 1.48-4.50 vhaq=799) MONOCYTES ABSOLUTE COUNT (BEAKER) (test 0.33 K/ L 0.00-1.30 olvy=613) EOSINOPHILS ABSOLUTE COUNT (BEAKER) (test 0.17 K/ L 0.00-0.50 anhp=537) BASOPHILS ABSOLUTE COUNT (BEAKER) (test 0.02 K/ L 0.00-0.20 yfal=145) 0.00URINALYSIS W/ REFLEX URINE [id number] 22:30:00 Test Item Value Reference Range Comments COLOR (BEAKER) (test lqiy=406) Yellow CLARITY (BEAKER) (test matz=672) Clear SPECIFIC GRAVITY UA (BEAKER) (test qttx=203) 1.050 1.001-1.035 PH UA (BEAKER) (test hxgz=890) 6.0 5.0-8.0 PROTEIN UA (BEAKER) (test xhak=839) 20 mg/dL Negative GLUCOSE UA (BEAKER) (test chyl=811) Negative Negative KETONES UA (BEAKER) (test hwqy=341) 40 mg/dL Negative BILIRUBIN UA (BEAKER) (test osyi=977) Negative Negative BLOOD UA (BEAKER) (test chep=991) Negative Negative NITRITE UA (BEAKER) (test jlqh=683) Negative Negative LEUKOCYTE ESTERASE UA (BEAKER) (test crpg=547) Negative Negative UROBILINOGEN UA (BEAKER) (test arpm=373) 2.0 mg/dL 0.2-1.0 RBC UA (BEAKER) (test nyke=405) /HPF None Seen WBC UA (BEAKER) (test bfnb=207) /HPF None Seen SOURCE(BEAKER) (test fuei=0872) TSH/FREE T4 IF [id number] 14:45:00 Test Item Value Reference Range Comments THYROID STIMULATING HORMONE (BEAKER) (test 2.66 uIU/mL 0.35-4.94 xsaw=564) VITAMIN B12 AND [id number] 14:45:00 Test Item Value Reference Range Comments VITAMIN B12 (BEAKER) (test bugv=065) 815 pg/mL 213-816 FOLATE (BEAKER) (test vzaj=932) 15.4 ng/mL >=7.0 Effective 07/06/2014: Folate Reference Range ChangeNew: >=7.0 Previous: & gt;=5.4VALPROIC ACID LEVEL, [id number] 14:18:00 Test Item Value Reference Range Comments VALPROIC ACID TOTAL (BEAKER) (test zwyy=382) 24 ug/mL 50-100 Therapeutic range for some clinical conditions may be >100 ug/[id number]- [id number] 14:02:00 Test Item Value Reference Range Comments AMMONIA (BEAKER) (test kaia=637) 35 mol/L 18-72 BLOOD GAS, [id number] 13:50:00 Test Item Value Reference Range Comments PH ARTERIAL (BEAKER) (test spep=368) 7.47 7.35-7.45 PCO2 ARTERIAL (BEAKER) (test uggp=753) 35 mmHg 35-45 PO2 ARTERIAL (BEAKER) (test osjz=265) 78 mmHg 80-90 O2 SATURATION ARTERIAL (BEAKER) (test sgfn=788) 96.3 % 96.0-97.0 HCO3 ARTERIAL (BEAKER) (test vrsq=554) 25 mmol/L 21-29 BASE EXCESS ARTERIAL (BEAKER) (test xpbh=723) 1.2 mmol/L -2.0-3.0 PATIENT TEMPERATURE (BEAKER) (test gszz=3793) 36.9 C FIO2 (BEAKER) (test pcxy=9237) 21.0 % [id number] 10:49:00 Test Item Value Reference Range Comments PROTIME (BEAKER) (test bpsb=771) 14.7 seconds 11.7-14.7 INR (BEAKER) (test rqpf=762) 1.2 <=5.9 PARTIAL THROMBOPLASTIN TIME (BEAKER) (test 31.8 seconds 22.5-36.0 rfnl=905) RECOMMENDED COUMADIN/WARFARIN INR THERAPY RANGESSTANDARD DOSE: 2.0 - 3.0 Includes: PROPHYLAXIS forvenous thrombosis, systemic embolization; TREATMENT for venous thrombosis and/or pulmonary embolus.HIGH RISK: Target INR is 2.5-3.5 for patients with mechanical heart valves.PROTHROMBIN [id number] 10:48: 00 Test Item Value Reference Range Comments PROTIME (BEAKER) (test qkgh=677) 14.7 seconds 11.7-14.7 INR (BEAKER) (test rcca=238) 1.2 <=5.9 RECOMMENDED COUMADIN/WARFARIN INR THERAPY RANGESSTANDARD DOSE: 2.0 - 3.0 Includes: PROPHYLAXIS forvenous thrombosis, systemic embolization; TREATMENT for venous thrombosis and/or pulmonary embolus.HIGH RISK: Target INR is 2.5-3.5 for patients with mechanical heart valves.POCT-GLUCOSE [id number] 07:47:00 Test Item Value Reference Range Comments POC-GLUCOSE METER (BEAKER) 95 mg/dL 70-110 TESTED AT [facility] [address] [facility] (test mzla=4248) [facility] [address] BASIC METABOLIC [id number] 04:59:00 Test Item Value Reference Range Comments SODIUM (BEAKER) (test 140 meq/L 136-145 wmni=049) POTASSIUM (BEAKER) (test 4.1 meq/L 3.5-5.1 dlvl=659) CHLORIDE (BEAKER) (test 109 meq/L 98-107 tqva=789) CO2 (BEAKER) (test 22 meq/L 22-29 dvco=849) BLOOD UREA NITROGEN 19 mg/dL 7-21 (BEAKER) (test rest=408) CREATININE (BEAKER) (test 0.95 mg/dL 0.57-1.25 vbfk=159) GLUCOSE RANDOM (BEAKER) 97 mg/dL 70-105 (test bggk=800) CALCIUM (BEAKER) (test 8.2 mg/dL 8.4-10.2 yshw=884) EGFR (BEAKER) (test 79 mL/min/1.73 sq m ESTIMATED GFR IS NOT bknv=4358) ACCURATE CREATININE CLEARANCE IN PREDICTING GLOMERULAR FILTRATION RATE. ESTIMATED GFR IS NOT APPLICABLE FOR DIALYSIS PATIENTS. CBC W/PLT COUNT & AUTO [id number] 04:49:00 Test Item Value Reference Range Comments WHITE BLOOD CELL COUNT (BEAKER) (test namw=930) 6.3 K/ L 4.0-10.0 RED BLOOD CELL COUNT (BEAKER) (test qcvy=912) 3.77 M/ L 4.20-5.80 HEMOGLOBIN (BEAKER) (test rwrc=450) 11.1 GM/DL 13.0-16.8 HEMATOCRIT (BEAKER) (test ufqn=324) 34.8 % 40.0-50.0 MEAN CORPUSCULAR VOLUME (BEAKER) (test ends=121) 92.4 fL 82.0-98.0 MEAN CORPUSCULAR HEMOGLOBIN (BEAKER) (test 29.4 pg 27.0-33.0 sssp=443) MEAN CORPUSCULAR HEMOGLOBIN CONC (BEAKER) (test 31.8 GM/DL 32.0-36.0 fntf=868) RED CELL DISTRIBUTION WIDTH (BEAKER) (test 12.3 % 10.3-14.2 cmdh=702) PLATELET COUNT (BEAKER) (test xsnu=795) 156 K/CU MM 150-430 MEAN PLATELET VOLUME (BEAKER) (test zjak=688) 6.9 fL 6.5-10.5 NUCLEATED RED BLOOD CELLS (BEAKER) (test 0 /100 WBC 0-0 clby=592) NEUTROPHILS RELATIVE PERCENT (BEAKER) (test 75 % uvki=331) LYMPHOCYTES RELATIVE PERCENT (BEAKER) (test 16 % xiiw=797) MONOCYTES RELATIVE PERCENT (BEAKER) (test 9 % zakn=733) EOSINOPHILS RELATIVE PERCENT (BEAKER) (test 1 % xfxu=066) BASOPHILS RELATIVE PERCENT (BEAKER) (test 0 % koma=814) NEUTROPHILS ABSOLUTE COUNT (BEAKER) (test 4.68 K/ L 1.80-8.00 iaqz=364) LYMPHOCYTES ABSOLUTE COUNT (BEAKER) (test 0.98 K/ L 1.48-4.50 mzoj=334) MONOCYTES ABSOLUTE COUNT (BEAKER) (test 0.56 K/ L 0.00-1.30 fzgq=646) EOSINOPHILS ABSOLUTE COUNT (BEAKER) (test 0.04 K/ L 0.00-0.50 rllz=508) BASOPHILS ABSOLUTE COUNT (BEAKER) (test 0.02 K/ L 0.00-0.20 bnof=731) 0.00POCT-GLUCOSE [id number] 04:02:00 Test Item Value Reference Range Comments POC-GLUCOSE METER (BEAKER) 114 mg/dL 70-110 TESTED AT [facility] [address] [facility] [facility] (test sazt=3863) [facility] [address] POCT-GLUCOSE [id number] 07:17:00 Test Item Value Reference Range Comments POC-GLUCOSE METER (BEAKER) 134 mg/dL 70-110 TESTED AT [facility] [address] [facility] (test bdhz=7139) [facility] [address] BASIC METABOLIC [id number] 03:52:00 Test Item Value Reference Range Comments SODIUM (BEAKER) (test 137 meq/L 136-145 sydw=438) POTASSIUM (BEAKER) (test 4.7 meq/L 3.5-5.1 Specimen slightly hjou=695) hemolyzed CHLORIDE (BEAKER) (test 110 meq/L 98-107 uuwt=886) CO2 (BEAKER) (test 20 meq/L 22-29 hxdd=013) BLOOD UREA NITROGEN 21 mg/dL 7-21 (BEAKER) (test tckt=991) CREATININE (BEAKER) (test 0.97 mg/dL 0.57-1.25 Specimen slightly vdvy=004) hemolyzed GLUCOSE RANDOM (BEAKER) 140 mg/dL 70-105 (test wsnn=263) CALCIUM (BEAKER) (test 7.7 mg/dL 8.4-10.2 rqgr=700) EGFR (BEAKER) (test 77 mL/min/1.73 sq m ESTIMATED GFR IS NOT pvij=9103) ACCURATE CREATININE CLEARANCE IN PREDICTING GLOMERULAR FILTRATION RATE. ESTIMATED GFR IS NOT APPLICABLE FOR DIALYSIS PATIENTS. [id number] 03:34:00 Test Item Value Reference Range Comments MAGNESIUM (BEAKER) (test 2.1 mg/dL 1.6-2.6 Specimen slightly hemolyzed mkei=695) [id number] 03:34:00 Test Item Value Reference Range Comments PHOSPHORUS (BEAKER) (test 2.5 mg/dL 2.3-4.7 Specimen slightly hemolyzed ilym=546) CBC W/PLT COUNT & AUTO [id number] 03:20:00 Test Item Value Reference Range Comments WHITE BLOOD CELL COUNT (BEAKER) (test kcbf=261) 7.8 K/ L 4.0-10.0 RED BLOOD CELL COUNT (BEAKER) (test foiq=922) 3.73 M/ L 4.20-5.80 HEMOGLOBIN (BEAKER) (test aylh=519) 11.7 GM/DL 13.0-16.8 HEMATOCRIT (BEAKER) (test uiut=125) 34.4 % 40.0-50.0 MEAN CORPUSCULAR VOLUME (BEAKER) (test yqbv=391) 92.3 fL 82.0-98.0 MEAN CORPUSCULAR HEMOGLOBIN (BEAKER) (test 31.5 pg 27.0-33.0 ryka=423) MEAN CORPUSCULAR HEMOGLOBIN CONC (BEAKER) (test 34.1 GM/DL 32.0-36.0 tecu=112) RED CELL DISTRIBUTION WIDTH (BEAKER) (test 13.3 % 10.3-14.2 pgrq=584) PLATELET COUNT (BEAKER) (test wcgr=722) 158 K/CU MM 150-430 MEAN PLATELET VOLUME (BEAKER) (test gnvi=911) 6.9 fL 6.5-10.5 NUCLEATED RED BLOOD CELLS (BEAKER) (test 0 /100 WBC 0-0 ukwl=678) NEUTROPHILS RELATIVE PERCENT (BEAKER) (test 90 % dvlj=611) LYMPHOCYTES RELATIVE PERCENT (BEAKER) (test 4 % safh=502) MONOCYTES RELATIVE PERCENT (BEAKER) (test 6 % itdz=157) EOSINOPHILS RELATIVE PERCENT (BEAKER) (test 0 % rjwz=647) BASOPHILS RELATIVE PERCENT (BEAKER) (test 0 % awtd=261) NEUTROPHILS ABSOLUTE COUNT (BEAKER) (test 6.98 K/ L 1.80-8.00 rrks=787) LYMPHOCYTES ABSOLUTE COUNT (BEAKER) (test 0.30 K/ L 1.48-4.50 yjwz=115) MONOCYTES ABSOLUTE COUNT (BEAKER) (test 0.46 K/ L 0.00-1.30 degy=512) EOSINOPHILS ABSOLUTE COUNT (BEAKER) (test 0.01 K/ L 0.00-0.50 pota=111) BASOPHILS ABSOLUTE COUNT (BEAKER) (test 0.00 K/ L 0.00-0.20 ncsg=845) 0.00POCT-GLUCOSE [id number] 02:04:00 Test Item Value Reference Range Comments POC-GLUCOSE METER (BEAKER) 126 mg/dL 70-110 TESTED AT [address] (test zizn=0312) [facility] [address] POCT-GLUCOSE [id number] 00:58:00 Test Item Value Reference Range Comments POC-GLUCOSE METER (BEAKER) 145 mg/dL 70-110 TESTED AT [address] (test hlhj=5827) [facility] [address] POCT-GLUCOSE [id number] 18:36:00 Test Item Value Reference Range Comments POC-GLUCOSE METER (BEAKER) 127 mg/dL 70-110 TESTED AT [facility] [address] [facility] (test mbrl=9851) [facility] [address] PLATELET AGGREGATION: FUNCTION [id number] 09:33:00 Test Item Value Reference Range Comments WEAK ADP RESULT(BEAKER) (test 53 % 60-91 qlkn=1525) PLATELET FUNCTION SCREEN 50-59% indicates mild platelet INTERP (BEAKER) (test dysfunction chii=6657) [id number] Teja Ferreira M.D. (electonic (BEAKER) (test epig=3859) signature) PLATELET COUNT AGG (BEAKER) 120 K/CU MM 150-430 (test qjhp=0373) [id number] 04:59:00 Test Item Value Reference Range Comments MAGNESIUM (BEAKER) (test 2.1 mg/dL 1.6-2.6 Specimen slightly hemolyzed yekc=878) Once on admission and Daily AM afterwardsOnce on admission and Daily AM afterwardsOnce on admission and Daily AM [id number] 04:59:00 Test Item Value Reference Range Comments PHOSPHORUS (BEAKER) (test 2.7 mg/dL 2.3-4.7 Specimen slightly hemolyzed ucly=699) Once on admission and Daily AM afterwardsOnce on admission and Daily AM afterwardsOnce on admission and Daily AM afterwardsBASIC METABOLIC [id number] 04:59:00 Test Item Value Reference Range Comments SODIUM (BEAKER) (test 140 meq/L 136-145 yxdx=457) POTASSIUM (BEAKER) (test 4.5 meq/L 3.5-5.1 Specimen slightly yssz=520) hemolyzed CHLORIDE (BEAKER) (test 108 meq/L 98-107 tnub=958) CO2 (BEAKER) (test 22 meq/L 22-29 jkcu=844) BLOOD UREA NITROGEN 17 mg/dL 7-21 (BEAKER) (test ckvg=141) CREATININE (BEAKER) (test 0.93 mg/dL 0.57-1.25 Specimen slightly zovo=061) hemolyzed GLUCOSE RANDOM (BEAKER) 82 mg/dL 70-105 (test sbki=853) CALCIUM (BEAKER) (test 8.2 mg/dL 8.4-10.2 vqml=613) EGFR (BEAKER) (test 81 mL/min/1.73 sq m ESTIMATED GFR IS NOT csvt=0250) ACCURATE CREATININE CLEARANCE IN PREDICTING GLOMERULAR FILTRATION RATE. ESTIMATED GFR IS NOT APPLICABLE FOR DIALYSIS PATIENTS. Once on admission and Daily AM afterwardsOnce on admission and Daily AM afterwardsOnce on admission and Daily AM afterwardsHEPATIC FUNCTION [id number] 23:24:00 Test Item Value Reference Range Comments TOTAL PROTEIN (BEAKER) (test 5.4 gm/dL 6.0-8.3 Specimen slightly hemolyzed dqhr=600) ALBUMIN (BEAKER) (test 3.0 g/dL 3.5-5.0 Specimen slightly hemolyzed vwzh=6539) BILIRUBIN TOTAL (BEAKER) (test 0.4 mg/dL 0.2-1.2 Specimen slightly hemolyzed cngb=735) BILIRUBIN DIRECT (BEAKER) (test 0.2 mg/dL 0.1-0.5 Specimen slightly hemolyzed bxzx=361) ALKALINE PHOSPHATASE (BEAKER) 41 U/L 40-150 (test azbc=275) AST (SGOT) (BEAKER) (test 15 U/L 5-34 Specimen slightly hemolyzed szkz=212) ALT (SGPT) (BEAKER) (test 10 U/L 6-55 Specimen slightly hemolyzed nydu=698) [id number] 22:52:00 Test Item Value Reference Range Comments PROTIME (BEAKER) (test ixcq=598) 14.3 seconds 11.7-14.7 INR (BEAKER) (test oggr=097) 1.1 <=5.9 PARTIAL THROMBOPLASTIN TIME (BEAKER) (test 32.5 seconds 22.5-36.0 iyom=846) RECOMMENDED COUMADIN/WARFARIN INR THERAPY RANGESSTANDARD DOSE: 2.0 - 3.0 Includes: PROPHYLAXIS forvenous thrombosis, systemic embolization; TREATMENT for venous thrombosis and/or pulmonary embolus.HIGH RISK: Target INR is 2.5-3.5 for patients with mechanical heart valves.VALPROIC ACID LEVEL, [id number] 20:34:00 Test Item Value Reference Range Comments VALPROIC ACID TOTAL (BEAKER) (test wpcq=036) 19 ug/mL 50-100 Therapeutic range for some clinical conditions may be >100 ug/mLCREATINE KINASE (CK), TOTAL AND [id number] 10:02:00 Test Item Value Reference Range Comments CREATINE KINASE TOTAL (BEAKER) (test srxi=412) 106 U/L 29-200 CREATINE KINASE-MB (BEAKER) (test lvit=983) 1.4 ng/mL 0.0-6.6 CREATINE KINASE-MB INDEX (BEAKER) (test fwcq=768) 1.3 % Effective 07/06/2014: CK-MB Reference Range ChangeNew: 0.0-6.6 Previous: 0.0- 4.9CK-MB Reference Range:<6.7 Normal6.7-10.0 Borderline>10.0 AbnormalTROPONIN [id number] 10:00:00 Test Item Value Reference Range Comments TROPONIN I (BEAKER) (test psuu=266) < ng/mL 0.00-0.03 Effective 07/06/2014: Reference Range ChangeNew: 0.00-0.03 Previous 0.00- 0.15Troponin I (TnI) levels must be interpreted in the context of the presenting symptoms and the clinical findings. Elevated TnI levels indicate myocardial damage, but are not specific for ischemic heart disease. Elevated TnI levels are seen in patients with other cardiac conditions (including myocarditis and congestive heartfailure), and slight TnI elevations occur in patients with other conditions, including sepsis, renalfailure, acidosis, acute neurological disease, and persistent tachyarrhythmia.CREATINE KINASE (CK), TOTAL AND [id number] 00:05:00 Test Item Value Reference Range Comments CREATINE KINASE TOTAL (BEAKER) (test ebxr=294) 26 U/L 29-200 CREATINE KINASE-MB (BEAKER) (test jjsw=496) 0.5 ng/mL 0.0-6.6 CREATINE KINASE-MB INDEX (BEAKER) (test mptg=188) 1.9 % Effective 07/06/2014: CK-MB Reference Range ChangeNew: 0.0-6.6 Previous: 0.0- 4.9CK-MB Reference Range:<6.7 Normal6.7-10.0 Borderline>10.0 AbnormalTROPONIN [id number] 00:05:00 Test Item Value Reference Range Comments TROPONIN I (BEAKER) (test yffc=828) 0.01 ng/mL 0.00-0.03 Effective 07/06/2014: Reference Range ChangeNew: 0.00-0.03 Previous 0.00- 0.15Troponin I (TnI) levels must be interpreted in the context of the presenting symptoms and the clinical findings. Elevated TnI levels indicate myocardial damage, but are not specific for ischemic heart disease. Elevated TnI levels are seen in patients with other cardiac conditions (including myocarditis and congestive heartfailure), and slight TnI elevations occur in patients with other conditions, including sepsis, renalfailure, acidosis, acute neurological disease, and persistent tachyarrhythmia.CREATINE KINASE (CK), TOTAL AND [id number] 18:06:00 Test Item Value Reference Range Comments CREATINE KINASE TOTAL (JOSEAKER) (test qrdt=347) 38 U/L 29-200 CREATINE KINASE-MB (BEAKER) (test soml=626) 0.6 ng/mL 0.0-6.6 CREATINE KINASE-MB INDEX (BEAKER) (test xyvc=755) 1.6 % Effective 07/06/2014: CK-MB Reference Range ChangeNew: 0.0-6.6 Previous: 0.0- 4.9CK-MB Reference Range:<6.7 Normal6.7-10.0 Borderline>10.0 AbnormalTROPONIN [id number] 18:06:00 Test Item Value Reference Range Comments TROPONIN I (BEAKER) (test zjwr=091) < ng/mL 0.00-0.03 Effective 07/06/2014: Reference Range ChangeNew: 0.00-0.03 Previous 0.00- 0.15Troponin I (TnI) levels must be interpreted in the context of the presenting symptoms and the clinical findings. Elevated TnI levels indicate myocardial damage, but are not specific for ischemic heart disease. Elevated TnI levels are seen in patients with other cardiac conditions (including myocarditis and congestive heartfailure), and slight TnI elevations occur in patients with other conditions, including sepsis, renalfailure, acidosis, acute neurological disease, and persistent tachyarrhythmia.COMPREHENSIVE METABOLIC [id number] 18:03:00 Test Item Value Reference Range Comments TOTAL PROTEIN (BEAKER) 7.3 gm/dL 6.0-8.3 Specimen slightly (test udsc=625) hemolyzed ALBUMIN (BEAKER) (test 4.0 g/dL 3.5-5.0 Specimen slightly oeid=1121) hemolyzed ALKALINE PHOSPHATASE 68 U/L 40-150 (BEAKER) (test jexs=708) BILIRUBIN TOTAL (BEAKER) 0.6 mg/dL 0.2-1.2 Specimen slightly (test cjem=297) hemolyzed SODIUM (BEAKER) (test 137 meq/L 136-145 yooq=313) POTASSIUM (BEAKER) (test 4.4 meq/L 3.5-5.1 Specimen slightly djvd=912) hemolyzed CHLORIDE (BEAKER) (test 103 meq/L 98-107 kwsp=231) CO2 (BEAKER) (test 22 meq/L 22-29 ncxq=037) BLOOD UREA NITROGEN 16 mg/dL 7-21 (BEAKER) (test unzr=607) CREATININE (BEAKER) (test 1.01 mg/dL 0.57-1.25 Specimen slightly knfx=228) hemolyzed GLUCOSE RANDOM (BEAKER) 114 mg/dL 70-105 (test empl=561) CALCIUM (BEAKER) (test 9.3 mg/dL 8.4-10.2 gpxq=016) AST (SGOT) (BEAKER) (test 20 U/L 5-34 Specimen slightly rylv=363) hemolyzed ALT (SGPT) (BEAKER) (test 17 U/L 6-55 Specimen slightly fxzv=289) hemolyzed EGFR (BEAKER) (test 73 mL/min/1.73 sq m ESTIMATED GFR IS NOT nmuf=1114) ACCURATE CREATININE CLEARANCE IN PREDICTING GLOMERULAR FILTRATION RATE. ESTIMATED GFR IS NOT APPLICABLE FOR DIALYSIS PATIENTS. CBC W/PLT COUNT & AUTO [id number] 17:43:00 Test Item Value Reference Range Comments WHITE BLOOD CELL COUNT (BEAKER) (test zheq=157) 5.7 K/ L 4.0-10.0 RED BLOOD CELL COUNT (BEAKER) (test mqzx=284) 4.59 M/ L 4.20-5.80 HEMOGLOBIN (BEAKER) (test nuls=802) 14.4 GM/DL 13.0-16.8 HEMATOCRIT (BEAKER) (test azsl=770) 41.7 % 40.0-50.0 MEAN CORPUSCULAR VOLUME (BEAKER) (test yphq=679) 90.8 fL 82.0-98.0 MEAN CORPUSCULAR HEMOGLOBIN (BEAKER) (test 31.3 pg 27.0-33.0 lafz=624) MEAN CORPUSCULAR HEMOGLOBIN CONC (BEAKER) (test 34.5 GM/DL 32.0-36.0 vygb=157) RED CELL DISTRIBUTION WIDTH (BEAKER) (test 12.0 % 10.3-14.2 iurz=787) PLATELET COUNT (BEAKER) (test dxir=150) 164 K/CU MM 150-430 MEAN PLATELET VOLUME (BEAKER) (test mjzc=495) 7.2 fL 6.5-10.5 NUCLEATED RED BLOOD CELLS (BEAKER) (test 0 /100 WBC 0-0 sear=384) NEUTROPHILS RELATIVE PERCENT (BEAKER) (test 77 % vdxw=447) LYMPHOCYTES RELATIVE PERCENT (BEAKER) (test 12 % vttf=384) MONOCYTES RELATIVE PERCENT (BEAKER) (test 9 % hxdl=371) EOSINOPHILS RELATIVE PERCENT (BEAKER) (test 2 % tdph=991) BASOPHILS RELATIVE PERCENT (BEAKER) (test 1 % safw=059) NEUTROPHILS ABSOLUTE COUNT (BEAKER) (test 4.40 K/ L 1.80-8.00 hkba=464) LYMPHOCYTES ABSOLUTE COUNT (BEAKER) (test 0.68 K/ L 1.48-4.50 qegb=160) MONOCYTES ABSOLUTE COUNT (BEAKER) (test 0.50 K/ L 0.00-1.30 gmtz=231) EOSINOPHILS ABSOLUTE COUNT (BEAKER) (test 0.12 K/ L 0.00-0.50 orrf=016) BASOPHILS ABSOLUTE COUNT (BEAKER) (test 0.03 K/ L 0.00-0.20 xodn=419) [id number] 05:44:00 Test Item Value Reference Range Comments MAGNESIUM (BEAKER) (test tgxy=354) 2.0 mg/dL 1.6-2.6 [id number] 11:00:00 Test Item Value Reference Range Comments RPR SCREEN (BEAKER) (test avns=441) Nonreactive Nonreactive HEMOGLOBIN [id number] 10:35:00 Test Item Value Reference Range Comments HEMOGLOBIN A1C (BEAKER) (test pghs=117) 5.1 % 4.3-6.1 CBC W/PLT COUNT & AUTO [id number] 07:10:00 Test Item Value Reference Range Comments WHITE BLOOD CELL COUNT (BEAKER) (test nlca=529) 4.5 K/ L 4.0-10.0 RED BLOOD CELL COUNT (BEAKER) (test foyj=416) 4.53 M/ L 4.20-5.80 HEMOGLOBIN (BEAKER) (test gkzg=449) 13.6 GM/DL 13.0-16.8 HEMATOCRIT (BEAKER) (test watg=834) 41.1 % 40.0-50.0 MEAN CORPUSCULAR VOLUME (BEAKER) (test jmga=238) 90.7 fL 82.0-98.0 MEAN CORPUSCULAR HEMOGLOBIN (BEAKER) (test 30.1 pg 27.0-33.0 hbbf=498) MEAN CORPUSCULAR HEMOGLOBIN CONC (BEAKER) (test 33.1 GM/DL 32.0-36.0 vbeq=000) RED CELL DISTRIBUTION WIDTH (BEAKER) (test 12.1 % 10.3-14.2 rhzb=037) PLATELET COUNT (BEAKER) (test ozud=092) 169 K/CU MM 150-430 MEAN PLATELET VOLUME (BEAKER) (test hwxn=070) 7.1 fL 6.5-10.5 NUCLEATED RED BLOOD CELLS (BEAKER) (test 0 /100 WBC 0-0 jyxy=289) NEUTROPHILS RELATIVE PERCENT (BEAKER) (test 72 % njur=040) LYMPHOCYTES RELATIVE PERCENT (BEAKER) (test 17 % heww=065) MONOCYTES RELATIVE PERCENT (BEAKER) (test 8 % vvmw=277) EOSINOPHILS RELATIVE PERCENT (BEAKER) (test 3 % vfzd=783) BASOPHILS RELATIVE PERCENT (BEAKER) (test 1 % lweu=000) NEUTROPHILS ABSOLUTE COUNT (BEAKER) (test 3.20 K/ L 1.80-8.00 rehw=973) LYMPHOCYTES ABSOLUTE COUNT (BEAKER) (test 0.76 K/ L 1.48-4.50 oibs=027) MONOCYTES ABSOLUTE COUNT (BEAKER) (test 0.35 K/ L 0.00-1.30 byoe=218) EOSINOPHILS ABSOLUTE COUNT (BEAKER) (test 0.12 K/ L 0.00-0.50 zwuo=413) BASOPHILS ABSOLUTE COUNT (BEAKER) (test 0.03 K/ L 0.00-0.20 xeju=198) 0.00VITAMIN [id number] 06:57:00 Test Item Value Reference Range Comments VITAMIN B12 (BEAKER) (test krmd=735) 584 pg/mL 213-816 TSH/FREE T4 IF [id number] 06:57:00 Test Item Value Reference Range Comments THYROID STIMULATING HORMONE (BEAKER) (test 0.98 uIU/mL 0.35-4.94 wwks=063) [id number] 06:15:00 Test Item Value Reference Range Comments MAGNESIUM (BEAKER) (test dfrb=257) 2.1 mg/dL 1.6-2.6 COMPREHENSIVE METABOLIC [id number] 06:15:00 Test Item Value Reference Range Comments TOTAL PROTEIN (BEAKER) 6.8 gm/dL 6.0-8.3 (test ozxj=341) ALBUMIN (BEAKER) (test 3.9 g/dL 3.5-5.0 gbjl=5470) ALKALINE PHOSPHATASE 64 U/L 40-150 (BEAKER) (test wemw=506) BILIRUBIN TOTAL (BEAKER) 0.6 mg/dL 0.2-1.2 (test nvfj=744) SODIUM (BEAKER) (test 136 meq/L 136-145 vqls=820) POTASSIUM (BEAKER) (test 4.0 meq/L 3.5-5.1 aodb=368) CHLORIDE (BEAKER) (test 104 meq/L 98-107 kewy=528) CO2 (BEAKER) (test 21 meq/L 22-29 rvqu=520) BLOOD UREA NITROGEN 14 mg/dL 7-21 (BEAKER) (test iwlb=329) CREATININE (BEAKER) (test 0.98 mg/dL 0.57-1.25 rhdf=470) GLUCOSE RANDOM (BEAKER) 101 mg/dL 70-105 (test eykt=700) CALCIUM (BEAKER) (test 8.9 mg/dL 8.4-10.2 xbby=777) AST (SGOT) (BEAKER) (test 15 U/L 5-34 chbp=673) ALT (SGPT) (BEAKER) (test 15 U/L 6-55 uemt=033) EGFR (BEAKER) (test 76 mL/min/1.73 sq m ESTIMATED GFR IS NOT cmsu=3551) ACCURATE CREATININE CLEARANCE IN PREDICTING GLOMERULAR FILTRATION RATE. ESTIMATED GFR IS NOT APPLICABLE FOR DIALYSIS PATIENTS. BASIC METABOLIC [id number] 06:15:00 Test Item Value Reference Range Comments SODIUM (BEAKER) (test 136 meq/L 136-145 yzjt=251) POTASSIUM (BEAKER) (test 4.0 meq/L 3.5-5.1 ryzq=662) CHLORIDE (BEAKER) (test 104 meq/L 98-107 wdaw=083) CO2 (BEAKER) (test 21 meq/L 22-29 ahps=580) BLOOD UREA NITROGEN 14 mg/dL 7-21 (BEAKER) (test ezyk=428) CREATININE (BEAKER) (test 0.98 mg/dL 0.57-1.25 pyvo=753) GLUCOSE RANDOM (BEAKER) 101 mg/dL 70-105 (test xkhd=976) CALCIUM (BEAKER) (test 8.9 mg/dL 8.4-10.2 pazl=770) EGFR (BEAKER) (test 76 mL/min/1.73 sq m ESTIMATED GFR IS NOT vmcw=0332) ACCURATE CREATININE CLEARANCE IN PREDICTING GLOMERULAR FILTRATION RATE. ESTIMATED GFR IS NOT APPLICABLE FOR DIALYSIS PATIENTS. LIPID [id number] 06:15:00 Test Item Value Reference Range Comments TRIGLYCERIDES (BEAKER) (test egjb=661) 114 mg/dL CHOLESTEROL (BEAKER) (test bwwc=605) 161 mg/dL HDL CHOLESTEROL (BEAKER) (test nzuj=417) 36 mg/dL LDL CHOLESTEROL CALCULATED (BEAKER) (test 102 mg/dL yhpm=206) Triglyceride Reference Range: Low Risk <150 Borderline 150- 199 High Risk 200-499 Very High Risk >=500Cholesterol Reference Range: Low Risk <200 Borderline 200-239 High Risk > 240HDL Cholesterol Reference Range: Low Risk >=60 High Risk <40LDL Cholesterol Reference Range: Optimal <100 Near Optimal 100-129 Borderline 130-159 High 160-189 Very High >=190BASIC METABOLIC [id number] 05:07:00 Test Item Value Reference Range Comments SODIUM (BEAKER) (test 137 meq/L 136-145 huwy=656) POTASSIUM (BEAKER) (test 4.2 meq/L 3.5-5.1 kkaw=334) CHLORIDE (BEAKER) (test 105 meq/L 98-107 yusl=574) CO2 (BEAKER) (test 22 meq/L 22-29 dgei=278) BLOOD UREA NITROGEN 13 mg/dL 7-21 (BEAKER) (test sqnq=734) CREATININE (BEAKER) (test 0.93 mg/dL 0.57-1.25 vwze=233) GLUCOSE RANDOM (BEAKER) 102 mg/dL 70-105 (test cuan=688) CALCIUM (BEAKER) (test 9.3 mg/dL 8.4-10.2 vnrb=929) EGFR (BEAKER) (test 81 mL/min/1.73 sq m ESTIMATED GFR IS NOT ypjd=5822) ACCURATE CREATININE CLEARANCE IN PREDICTING GLOMERULAR FILTRATION RATE. ESTIMATED GFR IS NOT APPLICABLE FOR DIALYSIS PATIENTS. CBC W/PLT COUNT & AUTO [id number] 05:00:00 Test Item Value Reference Range Comments WHITE BLOOD CELL COUNT (BEAKER) (test lgwh=455) 5.3 K/ L 4.0-10.0 RED BLOOD CELL COUNT (BEAKER) (test dvlz=529) 4.52 M/ L 4.20-5.80 HEMOGLOBIN (BEAKER) (test tfkv=455) 13.6 GM/DL 13.0-16.8 HEMATOCRIT (BEAKER) (test yeyi=711) 40.4 % 40.0-50.0 MEAN CORPUSCULAR VOLUME (BEAKER) (test trdr=037) 89.4 fL 82.0-98.0 MEAN CORPUSCULAR HEMOGLOBIN (BEAKER) (test 30.1 pg 27.0-33.0 bxbo=919) MEAN CORPUSCULAR HEMOGLOBIN CONC (BEAKER) (test 33.7 GM/DL 32.0-36.0 wypn=268) RED CELL DISTRIBUTION WIDTH (BEAKER) (test 12.1 % 10.3-14.2 xzpt=920) PLATELET COUNT (BEAKER) (test herw=948) 157 K/CU MM 150-430 MEAN PLATELET VOLUME (BEAKER) (test uzeq=519) 7.0 fL 6.5-10.5 NUCLEATED RED BLOOD CELLS (BEAKER) (test 0 /100 WBC 0-0 bhwr=576) NEUTROPHILS RELATIVE PERCENT (BEAKER) (test 78 % swne=722) LYMPHOCYTES RELATIVE PERCENT (BEAKER) (test 11 % krun=921) MONOCYTES RELATIVE PERCENT (BEAKER) (test 7 % lxvk=427) EOSINOPHILS RELATIVE PERCENT (BEAKER) (test 3 % nbqe=857) BASOPHILS RELATIVE PERCENT (BEAKER) (test 0 % sbqu=295) NEUTROPHILS ABSOLUTE COUNT (BEAKER) (test 4.11 K/ L 1.80-8.00 sixk=111) LYMPHOCYTES ABSOLUTE COUNT (BEAKER) (test 0.56 K/ L 1.48-4.50 asrv=308) MONOCYTES ABSOLUTE COUNT (BEAKER) (test 0.39 K/ L 0.00-1.30 yerw=482) EOSINOPHILS ABSOLUTE COUNT (BEAKER) (test 0.16 K/ L 0.00-0.50 smoz=942) BASOPHILS ABSOLUTE COUNT (BEAKER) (test 0.02 K/ L 0.00-0.20 xgmv=593) 0.00BASIC METABOLIC [id number] 19:13:00 Test Item Value Reference Range Comments SODIUM (BEAKER) (test 136 meq/L 136-145 kcpv=771) POTASSIUM (BEAKER) (test 3.7 meq/L 3.5-5.1 vyqv=869) CHLORIDE (BEAKER) (test 105 meq/L 98-107 gkqd=777) CO2 (BEAKER) (test 25 meq/L 22-29 zqai=612) BLOOD UREA NITROGEN 14 mg/dL 7-21 (BEAKER) (test bosd=943) CREATININE (BEAKER) (test 0.93 mg/dL 0.57-1.25 tjya=936) GLUCOSE RANDOM (BEAKER) 147 mg/dL 70-105 (test zroh=682) CALCIUM (BEAKER) (test 9.2 mg/dL 8.4-10.2 howx=585) EGFR (BEAKER) (test 81 mL/min/1.73 sq m ESTIMATED GFR IS NOT ecpm=1200) ACCURATE CREATININE CLEARANCE IN PREDICTING GLOMERULAR FILTRATION RATE. ESTIMATED GFR IS NOT APPLICABLE FOR DIALYSIS PATIENTS. CBC W/PLT COUNT & AUTO [id number] 19:08:00 Test Item Value Reference Range Comments WHITE BLOOD CELL COUNT (BEAKER) (test ydkd=036) 5.3 K/ L 4.0-10.0 RED BLOOD CELL COUNT (BEAKER) (test csja=600) 4.25 M/ L 4.20-5.80 HEMOGLOBIN (BEAKER) (test fzba=090) 13.4 GM/DL 13.0-16.8 HEMATOCRIT (BEAKER) (test tjnj=501) 37.7 % 40.0-50.0 MEAN CORPUSCULAR VOLUME (BEAKER) (test dejs=126) 88.7 fL 82.0-98.0 MEAN CORPUSCULAR HEMOGLOBIN (BEAKER) (test 31.5 pg 27.0-33.0 imbp=806) MEAN CORPUSCULAR HEMOGLOBIN CONC (BEAKER) (test 35.5 GM/DL 32.0-36.0 kcdh=593) RED CELL DISTRIBUTION WIDTH (BEAKER) (test 11.9 % 10.3-14.2 jznj=583) PLATELET COUNT (BEAKER) (test ymwk=252) 142 K/CU MM 150-430 MEAN PLATELET VOLUME (BEAKER) (test opgd=364) 6.7 fL 6.5-10.5 NUCLEATED RED BLOOD CELLS (BEAKER) (test 0 /100 WBC 0-0 eewa=453) NEUTROPHILS RELATIVE PERCENT (BEAKER) (test 81 % mwql=413) LYMPHOCYTES RELATIVE PERCENT (BEAKER) (test 11 % jblu=080) MONOCYTES RELATIVE PERCENT (BEAKER) (test 6 % mpup=968) EOSINOPHILS RELATIVE PERCENT (BEAKER) (test 2 % xksn=839) BASOPHILS RELATIVE PERCENT (BEAKER) (test 0 % ktfx=848) NEUTROPHILS ABSOLUTE COUNT (BEAKER) (test 4.27 K/ L 1.80-8.00 pwqu=090) LYMPHOCYTES ABSOLUTE COUNT (BEAKER) (test 0.57 K/ L 1.48-4.50 phgn=328) MONOCYTES ABSOLUTE COUNT (BEAKER) (test 0.33 K/ L 0.00-1.30 kora=964) EOSINOPHILS ABSOLUTE COUNT (BEAKER) (test 0.11 K/ L 0.00-0.50 tqbo=294) BASOPHILS ABSOLUTE COUNT (BEAKER) (test 0.02 K/ L 0.00-0.20 wxut=152) 0.00POCT-GLUCOSE [id number] 14:07:00 Test Item Value Reference Range Comments POC-GLUCOSE METER (BEAKER) 99 mg/dL 70-110 TESTED AT [facility] [address] [facility] (test szfo=4261) [facility] [address] POCT-GLUCOSE [id number] 13:05:00 Test Item Value Reference Range Comments POC-GLUCOSE METER (BEAKER) 115 mg/dL 70-110 TESTED AT [address] (test hxeo=6777) [facility] [address] POCT-GLUCOSE [id number] 07:34:00 Test Item Value Reference Range Comments POC-GLUCOSE METER (BEAKER) 145 mg/dL 70-110 TESTED AT [place] [id number] [facility] (test jtgb=3238) [facility] [address] [id number] 06:56:00 Test Item Value Reference Range Comments PHOSPHORUS (BEAKER) (test qcla=930) 3.3 mg/dL 2.3-4.7 [id number] 06:56:00 Test Item Value Reference Range Comments MAGNESIUM (BEAKER) (test fkoe=500) 1.9 mg/dL 1.6-2.6 BASIC METABOLIC [id number] 06:56:00 Test Item Value Reference Range Comments SODIUM (BEAKER) (test 137 meq/L 136-145 ygbw=429) POTASSIUM (BEAKER) (test 4.2 meq/L 3.5-5.1 mykh=748) CHLORIDE (BEAKER) (test 105 meq/L 98-107 pfdg=449) CO2 (BEAKER) (test 22 meq/L 22-29 cpil=944) BLOOD UREA NITROGEN 15 mg/dL 7-21 (BEAKER) (test oxhq=191) CREATININE (BEAKER) (test 0.90 mg/dL 0.57-1.25 sxzx=807) GLUCOSE RANDOM (BEAKER) 100 mg/dL 70-105 (test vdhh=960) CALCIUM (BEAKER) (test 8.9 mg/dL 8.4-10.2 jpes=057) EGFR (BEAKER) (test 84 mL/min/1.73 sq m ESTIMATED GFR IS NOT quhp=4191) ACCURATE CREATININE CLEARANCE IN PREDICTING GLOMERULAR FILTRATION RATE. ESTIMATED GFR IS NOT APPLICABLE FOR DIALYSIS PATIENTS. CBC W/PLT COUNT & AUTO [id number] 06:34:00 Test Item Value Reference Range Comments WHITE BLOOD CELL COUNT (BEAKER) (test cgxj=755) 4.2 K/ L 4.0-10.0 RED BLOOD CELL COUNT (BEAKER) (test nvpi=793) 4.24 M/ L 4.20-5.80 HEMOGLOBIN (BEAKER) (test nrad=758) 13.1 GM/DL 13.0-16.8 HEMATOCRIT (BEAKER) (test zpsm=012) 37.7 % 40.0-50.0 MEAN CORPUSCULAR VOLUME (BEAKER) (test derj=842) 88.7 fL 82.0-98.0 MEAN CORPUSCULAR HEMOGLOBIN (BEAKER) (test 30.9 pg 27.0-33.0 rihd=881) MEAN CORPUSCULAR HEMOGLOBIN CONC (BEAKER) (test 34.8 GM/DL 32.0-36.0 fhff=929) RED CELL DISTRIBUTION WIDTH (BEAKER) (test 13.2 % 10.3-14.2 ksad=764) PLATELET COUNT (BEAKER) (test lbts=843) 130 K/CU MM 150-430 MEAN PLATELET VOLUME (BEAKER) (test wxrw=065) 7.1 fL 6.5-10.5 NUCLEATED RED BLOOD CELLS (BEAKER) (test 0 /100 WBC 0-0 fzgh=733) NEUTROPHILS RELATIVE PERCENT (BEAKER) (test 73 % vual=294) LYMPHOCYTES RELATIVE PERCENT (BEAKER) (test 16 % cbnc=190) MONOCYTES RELATIVE PERCENT (BEAKER) (test 7 % awco=751) EOSINOPHILS RELATIVE PERCENT (BEAKER) (test 5 % zchu=123) BASOPHILS RELATIVE PERCENT (BEAKER) (test 0 % ejzh=223) NEUTROPHILS ABSOLUTE COUNT (BEAKER) (test 3.06 K/ L 1.80-8.00 eiif=456) LYMPHOCYTES ABSOLUTE COUNT (BEAKER) (test 0.67 K/ L 1.48-4.50 dgsj=793) MONOCYTES ABSOLUTE COUNT (BEAKER) (test 0.28 K/ L 0.00-1.30 qszd=946) EOSINOPHILS ABSOLUTE COUNT (BEAKER) (test 0.21 K/ L 0.00-0.50 nowx=473) BASOPHILS ABSOLUTE COUNT (BEAKER) (test 0.00 K/ L 0.00-0.20 fixv=702) [id number] 06:29:00 Test Item Value Reference Range Comments PARTIAL THROMBOPLASTIN TIME (BEAKER) (test 30.9 seconds 22.5-36.0 ckiq=359) PROTHROMBIN [id number] 06:28:00 Test Item Value Reference Range Comments PROTIME (BEAKER) (test tmte=421) 14.0 seconds 11.7-14.7 INR (BEAKER) (test ztiy=497) 1.1 <=5.9 RECOMMENDED COUMADIN/WARFARIN INR THERAPY RANGESSTANDARD DOSE: 2.0 - 3.0 Includes: PROPHYLAXIS forvenous thrombosis, systemic embolization; TREATMENT for venous thrombosis and/or pulmonary embolus.HIGH RISK: Target INR is 2.5-3.5 for patients with mechanical heart valves.POCT-GLUCOSE [id number] 05:42:00 Test Item Value Reference Range Comments POC-GLUCOSE METER (BEAKER) 90 mg/dL 70-110 TESTED AT [address] (test ydhn=8923) [place] [address] POCT-GLUCOSE [id number] 23:43:00 Test Item Value Reference Range Comments POC-GLUCOSE METER (BEAKER) 118 mg/dL 70-110 TESTED AT [address] (test agjf=7483) [place] [address] POCT-GLUCOSE [id number] 17:19:00 Test Item Value Reference Range Comments POC-GLUCOSE METER (BEAKER) 127 mg/dL 70-110 TESTED AT [address] (test wkop=1356) [place] [id number] POCT-GLUCOSE [id number] 12:30:00 Test Item Value Reference Range Comments POC-GLUCOSE METER (BEAKER) 103 mg/dL 70-110 TESTED AT [address] (test kgyf=6951) [place] [id number] POCT-GLUCOSE [id number] 09:52:00 Test Item Value Reference Range Comments POC-GLUCOSE METER (BEAKER) 137 mg/dL 70-110 TESTED AT [address] (test wdaa=1195) [place] [address] CBC W/PLT COUNT & AUTO [id number] 06:43:00 Test Item Value Reference Range Comments WHITE BLOOD CELL COUNT (BEAKER) (test vkbr=354) 4.9 K/ L 4.0-10.0 RED BLOOD CELL COUNT (BEAKER) (test gpfe=416) 4.36 M/ L 4.20-5.80 HEMOGLOBIN (BEAKER) (test swbn=229) 13.2 GM/DL 13.0-16.8 HEMATOCRIT (BEAKER) (test dclo=713) 39.1 % 40.0-50.0 MEAN CORPUSCULAR VOLUME (BEAKER) (test atry=035) 89.8 fL 82.0-98.0 MEAN CORPUSCULAR HEMOGLOBIN (BEAKER) (test 30.2 pg 27.0-33.0 kzrc=092) MEAN CORPUSCULAR HEMOGLOBIN CONC (BEAKER) (test 33.7 GM/DL 32.0-36.0 mmwh=359) RED CELL DISTRIBUTION WIDTH (BEAKER) (test 12.0 % 10.3-14.2 rvox=463) PLATELET COUNT (BEAKER) (test jgfp=005) 143 K/CU MM 150-430 MEAN PLATELET VOLUME (BEAKER) (test alwb=142) 6.9 fL 6.5-10.5 NUCLEATED RED BLOOD CELLS (BEAKER) (test 0 /100 WBC 0-0 pbsc=757) NEUTROPHILS RELATIVE PERCENT (BEAKER) (test 74 % tadb=934) LYMPHOCYTES RELATIVE PERCENT (BEAKER) (test 16 % oimr=928) MONOCYTES RELATIVE PERCENT (BEAKER) (test 6 % abit=836) EOSINOPHILS RELATIVE PERCENT (BEAKER) (test 4 % lruw=263) BASOPHILS RELATIVE PERCENT (BEAKER) (test 0 % pwed=288) NEUTROPHILS ABSOLUTE COUNT (BEAKER) (test 3.59 K/ L 1.80-8.00 whvg=500) LYMPHOCYTES ABSOLUTE COUNT (BEAKER) (test 0.78 K/ L 1.48-4.50 mvqh=990) MONOCYTES ABSOLUTE COUNT (BEAKER) (test 0.30 K/ L 0.00-1.30 uowc=495) EOSINOPHILS ABSOLUTE COUNT (BEAKER) (test 0.21 K/ L 0.00-0.50 hxpv=685) BASOPHILS ABSOLUTE COUNT (BEAKER) (test 0.01 K/ L 0.00-0.20 mmlp=260) [id number] 06:39:00 Test Item Value Reference Range Comments PHOSPHORUS (BEAKER) (test rlua=503) 3.2 mg/dL 2.3-4.7 [id number] 06:39:00 Test Item Value Reference Range Comments MAGNESIUM (BEAKER) (test whzk=573) 1.9 mg/dL 1.6-2.6 BASIC METABOLIC [id number] 06:39:00 Test Item Value Reference Range Comments SODIUM (BEAKER) (test 137 meq/L 136-145 trmx=896) POTASSIUM (BEAKER) (test 3.9 meq/L 3.5-5.1 ecbm=378) CHLORIDE (BEAKER) (test 106 meq/L 98-107 ynih=828) CO2 (BEAKER) (test 23 meq/L 22-29 vpil=163) BLOOD UREA NITROGEN 14 mg/dL 7-21 (BEAKER) (test lewl=410) CREATININE (BEAKER) (test 0.89 mg/dL 0.57-1.25 mngr=709) GLUCOSE RANDOM (BEAKER) 99 mg/dL 70-105 (test erlt=879) CALCIUM (BEAKER) (test 9.0 mg/dL 8.4-10.2 sdta=370) EGFR (BEAKER) (test 85 mL/min/1.73 sq m ESTIMATED GFR IS NOT vkfm=3224) ACCURATE CREATININE CLEARANCE IN PREDICTING GLOMERULAR FILTRATION RATE. ESTIMATED GFR IS NOT APPLICABLE FOR DIALYSIS PATIENTS. PROTHROMBIN [id number] 06:31:00 Test Item Value Reference Range Comments PROTIME (BEAKER) (test kpgw=794) 13.7 seconds 11.7-14.7 INR (BEAKER) (test aitx=010) 1.1 <=5.9 RECOMMENDED COUMADIN/WARFARIN INR THERAPY RANGESSTANDARD DOSE: 2.0 - 3.0 Includes: PROPHYLAXIS forvenous thrombosis, systemic embolization; TREATMENT for venous thrombosis and/or pulmonary embolus.HIGH RISK: Target INR is 2.5-3.5 for patients with mechanical heart valves.[id number] 06:31:00 Test Item Value Reference Range Comments PARTIAL THROMBOPLASTIN TIME (BEAKER) (test 30.3 seconds 22.5-36.0 ukcn=197) POCT-GLUCOSE [id number] 21:46:00 Test Item Value Reference Range Comments POC-GLUCOSE METER (BEAKER) 97 mg/dL 70-110 TESTED AT [address] (test prgd=8626) [facility] [address] POCT-GLUCOSE [id number] 12:19:00 Test Item Value Reference Range Comments POC-GLUCOSE METER (BEAKER) 118 mg/dL 70-110 TESTED AT [address] (test qvft=8888) [facility] [address] POCT-GLUCOSE [id number] 08:50:00 Test Item Value Reference Range Comments POC-GLUCOSE METER (BEAKER) 135 mg/dL 70-110 TESTED AT [address] (test rwfs=5842) [facility] [address] POCT-GLUCOSE [id number] 07:45:00 Test Item Value Reference Range Comments POC-GLUCOSE METER (BEAKER) 94 mg/dL 70-110 TESTED AT [address] (test fnwf=8755) [facility] [address] CBC W/PLT COUNT & AUTO [id number] 05:32:00 Test Item Value Reference Range Comments WHITE BLOOD CELL COUNT (BEAKER) (test dreb=716) 4.8 K/ L 4.0-10.0 RED BLOOD CELL COUNT (BEAKER) (test efrt=377) 4.11 M/ L 4.20-5.80 HEMOGLOBIN (BEAKER) (test pypa=159) 12.7 GM/DL 13.0-16.8 HEMATOCRIT (BEAKER) (test ygom=146) 36.8 % 40.0-50.0 MEAN CORPUSCULAR VOLUME (BEAKER) (test bpdd=988) 89.5 fL 82.0-98.0 MEAN CORPUSCULAR HEMOGLOBIN (BEAKER) (test 30.8 pg 27.0-33.0 cvgc=206) MEAN CORPUSCULAR HEMOGLOBIN CONC (BEAKER) (test 34.4 GM/DL 32.0-36.0 alsa=389) RED CELL DISTRIBUTION WIDTH (BEAKER) (test 11.9 % 10.3-14.2 uufq=593) PLATELET COUNT (BEAKER) (test ywcx=626) 143 K/CU MM 150-430 MEAN PLATELET VOLUME (BEAKER) (test fxka=142) 7.0 fL 6.5-10.5 NUCLEATED RED BLOOD CELLS (BEAKER) (test 0 /100 WBC 0-0 tsal=191) NEUTROPHILS RELATIVE PERCENT (BEAKER) (test 74 % xmdl=039) LYMPHOCYTES RELATIVE PERCENT (BEAKER) (test 15 % mzpl=839) MONOCYTES RELATIVE PERCENT (BEAKER) (test 7 % fdub=534) EOSINOPHILS RELATIVE PERCENT (BEAKER) (test 4 % yamd=160) BASOPHILS RELATIVE PERCENT (BEAKER) (test 0 % gntk=667) NEUTROPHILS ABSOLUTE COUNT (BEAKER) (test 3.53 K/ L 1.80-8.00 sxvt=393) LYMPHOCYTES ABSOLUTE COUNT (BEAKER) (test 0.72 K/ L 1.48-4.50 pgyh=241) MONOCYTES ABSOLUTE COUNT (BEAKER) (test 0.33 K/ L 0.00-1.30 rjqq=551) EOSINOPHILS ABSOLUTE COUNT (BEAKER) (test 0.18 K/ L 0.00-0.50 qxgb=258) BASOPHILS ABSOLUTE COUNT (BEAKER) (test 0.01 K/ L 0.00-0.20 dewh=738) [id number] 05:27:00 Test Item Value Reference Range Comments PHOSPHORUS (BEAKER) (test yrki=922) 3.4 mg/dL 2.3-4.7 [id number] 05:27:00 Test Item Value Reference Range Comments MAGNESIUM (BEAKER) (test hmmr=660) 2.0 mg/dL 1.6-2.6 BASIC METABOLIC [id number] 05:27:00 Test Item Value Reference Range Comments SODIUM (BEAKER) (test 139 meq/L 136-145 zetf=165) POTASSIUM (BEAKER) (test 4.1 meq/L 3.5-5.1 jxrc=244) CHLORIDE (BEAKER) (test 108 meq/L 98-107 yijl=320) CO2 (BEAKER) (test 23 meq/L 22-29 bylx=132) BLOOD UREA NITROGEN 15 mg/dL 7-21 (BEAKER) (test twxt=344) CREATININE (BEAKER) (test 0.85 mg/dL 0.57-1.25 usnu=125) GLUCOSE RANDOM (BEAKER) 105 mg/dL 70-105 (test ooum=010) CALCIUM (BEAKER) (test 8.6 mg/dL 8.4-10.2 cbxr=787) EGFR (BEAKER) (test 89 mL/min/1.73 sq m ESTIMATED GFR IS NOT yswt=2578) ACCURATE CREATININE CLEARANCE IN PREDICTING GLOMERULAR FILTRATION RATE. ESTIMATED GFR IS NOT APPLICABLE FOR DIALYSIS PATIENTS. [id number] 05:09:00 Test Item Value Reference Range Comments PARTIAL THROMBOPLASTIN TIME (BEAKER) (test 29.4 seconds 22.5-36.0 csmv=552) PROTHROMBIN TIME/[id number] 05:08:00 Test Item Value Reference Range Comments PROTIME (BEAKER) (test biuv=590) 13.6 seconds 11.7-14.7 INR (BEAKER) (test kivr=172) 1.0 <=5.9 RECOMMENDED COUMADIN/WARFARIN INR THERAPY RANGESSTANDARD DOSE: 2.0 - 3.0 Includes: PROPHYLAXIS forvenous thrombosis, systemic embolization; TREATMENT for venous thrombosis and/or pulmonary embolus.HIGH RISK: Target INR is 2.5-3.5 for patients with mechanical heart valves.POCT-GLUCOSE [id number] 18:02:00 Test Item Value Reference Range Comments POC-GLUCOSE METER (BEAKER) 120 mg/dL 70-110 TESTED AT [address] (test hrcd=1259) [place] [address] POCT-GLUCOSE [id number] 12:36:00 Test Item Value Reference Range Comments POC-GLUCOSE METER (BEAKER) 109 mg/dL 70-110 TESTED AT [address] (test ludv=7585) [place] [address] POCT-GLUCOSE [id number] 07:59:00 Test Item Value Reference Range Comments POC-GLUCOSE METER (BEAKER) 104 mg/dL 70-110 TESTED AT [address] (test pgci=2394) [place] [address] POCT-GLUCOSE [id number] 06:56:00 Test Item Value Reference Range Comments POC-GLUCOSE METER (BEAKER) 102 mg/dL 70-110 TESTED AT [address] (test ylzj=1808) [place] [address] TROPONIN [id number] 02:03:00 Test Item Value Reference Range Comments TROPONIN I (BEAKER) (test kgwc=747) < ng/mL 0.00-0.03 Effective 07/06/2014: Reference Range ChangeNew: 0.00-0.03 Previous 0.00- 0.15Troponin I (TnI) levels must be interpreted in the context of the presenting symptoms and the clinical findings. Elevated TnI levels indicate myocardial damage, but are not specific for ischemic heart disease. Elevated TnI levels are seen in patients with other cardiac conditions (including myocarditis and congestive heartfailure), and slight TnI elevations occur in patients with other conditions, including sepsis, renalfailure, acidosis, acute neurological disease, and persistent tachyarrhythmia.[id number] 01:55: 00 Test Item Value Reference Range Comments MAGNESIUM (BEAKER) (test 2.2 mg/dL 1.6-2.6 Specimen slightly hemolyzed egnm=293) [id number] 01:55:00 Test Item Value Reference Range Comments PHOSPHORUS (BEAKER) (test 2.9 mg/dL 2.3-4.7 Specimen slightly hemolyzed aeta=764) BASIC METABOLIC [id number] 01:55:00 Test Item Value Reference Range Comments SODIUM (BEAKER) (test 141 meq/L 136-145 odcd=307) POTASSIUM (BEAKER) (test 4.4 meq/L 3.5-5.1 Specimen slightly iwct=609) hemolyzed CHLORIDE (BEAKER) (test 111 meq/L 98-107 mcsq=243) CO2 (BEAKER) (test 23 meq/L 22-29 anlx=485) BLOOD UREA NITROGEN 15 mg/dL 7-21 (BEAKER) (test jlrk=275) CREATININE (BEAKER) (test 1.10 mg/dL 0.57-1.25 Specimen slightly taaf=932) hemolyzed GLUCOSE RANDOM (BEAKER) 103 mg/dL 70-105 (test xgoa=369) CALCIUM (BEAKER) (test 8.2 mg/dL 8.4-10.2 zbeo=131) EGFR (BEAKER) (test 66 mL/min/1.73 sq m ESTIMATED GFR IS NOT uewa=3759) ACCURATE CREATININE CLEARANCE IN PREDICTING GLOMERULAR FILTRATION RATE. ESTIMATED GFR IS NOT APPLICABLE FOR DIALYSIS PATIENTS. [id number] 01:33:00 Test Item Value Reference Range Comments PARTIAL THROMBOPLASTIN TIME (BEAKER) (test 30.2 seconds 22.5-36.0 wodh=106) PROTHROMBIN TIME/[id number] 01:32:00 Test Item Value Reference Range Comments PROTIME (BEAKER) (test guvw=414) 14.7 seconds 11.7-14.7 INR (BEAKER) (test bbro=331) 1.2 <=5.9 RECOMMENDED COUMADIN/WARFARIN INR THERAPY RANGESSTANDARD DOSE: 2.0 - 3.0 Includes: PROPHYLAXIS forvenous thrombosis, systemic embolization; TREATMENT for venous thrombosis and/or pulmonary embolus.HIGH RISK: Target INR is 2.5-3.5 for patients with mechanical heart valves.CBC W/PLT COUNT & AUTO [id number] 01:23:00 Test Item Value Reference Range Comments WHITE BLOOD CELL COUNT (BEAKER) (test tqdc=127) 4.8 K/ L 4.0-10.0 RED BLOOD CELL COUNT (BEAKER) (test iqsq=866) 4.08 M/ L 4.20-5.80 HEMOGLOBIN (BEAKER) (test iuwr=779) 13.0 GM/DL 13.0-16.8 HEMATOCRIT (BEAKER) (test pqle=802) 36.7 % 40.0-50.0 MEAN CORPUSCULAR VOLUME (BEAKER) (test nlpf=902) 90.0 fL 82.0-98.0 MEAN CORPUSCULAR HEMOGLOBIN (BEAKER) (test 31.8 pg 27.0-33.0 dkot=967) MEAN CORPUSCULAR HEMOGLOBIN CONC (BEAKER) (test 35.3 GM/DL 32.0-36.0 wzyo=128) RED CELL DISTRIBUTION WIDTH (BEAKER) (test 12.2 % 10.3-14.2 jkzv=674) PLATELET COUNT (BEAKER) (test yyui=817) 151 K/CU MM 150-430 MEAN PLATELET VOLUME (BEAKER) (test ynkx=781) 7.3 fL 6.5-10.5 NUCLEATED RED BLOOD CELLS (BEAKER) (test 0 /100 WBC 0-0 imae=325) NEUTROPHILS RELATIVE PERCENT (BEAKER) (test 76 % ooxt=241) LYMPHOCYTES RELATIVE PERCENT (BEAKER) (test 15 % nbfn=496) MONOCYTES RELATIVE PERCENT (BEAKER) (test 6 % pkjj=197) EOSINOPHILS RELATIVE PERCENT (BEAKER) (test 3 % edgw=605) BASOPHILS RELATIVE PERCENT (BEAKER) (test 0 % pchw=479) NEUTROPHILS ABSOLUTE COUNT (BEAKER) (test 3.65 K/ L 1.80-8.00 dyoi=593) LYMPHOCYTES ABSOLUTE COUNT (BEAKER) (test 0.72 K/ L 1.48-4.50 ksnm=907) MONOCYTES ABSOLUTE COUNT (BEAKER) (test 0.28 K/ L 0.00-1.30 nxnk=770) EOSINOPHILS ABSOLUTE COUNT (BEAKER) (test 0.13 K/ L 0.00-0.50 vnku=779) BASOPHILS ABSOLUTE COUNT (BEAKER) (test 0.00 K/ L 0.00-0.20 wdia=419) 0.00POCT-GLUCOSE [id number] 00:13:00 Test Item Value Reference Range Comments POC-GLUCOSE METER (BEAKER) 104 mg/dL 70-110 TESTED AT [address] (test igiz=3863) [place] [address] POCT-GLUCOSE [id number] 17:43:00 Test Item Value Reference Range Comments POC-GLUCOSE METER (BEAKER) 131 mg/dL 70-110 TESTED AT [address] (test advu=5178) [place] [address] TROPONIN [id number] 17:29:00 Test Item Value Reference Range Comments TROPONIN I (BEAKER) (test lfwi=450) < ng/mL 0.00-0.03 Effective 07/06/2014: Reference Range ChangeNew: 0.00-0.03 Previous 0.00- 0.15Troponin I (TnI) levels must be interpreted in the context of the presenting symptoms and the clinical findings. Elevated TnI levels indicate myocardial damage, but are not specific for ischemic heart disease. Elevated TnI levels are seen in patients with other cardiac conditions (including myocarditis and congestive heartfailure), and slight TnI elevations occur in patients with other conditions, including sepsis, renalfailure, acidosis, acute neurological disease, and persistent tachyarrhythmia.POCT-GLUCOSE [id number] 13:05:00 Test Item Value Reference Range Comments POC-GLUCOSE METER (BEAKER) 94 mg/dL 70-110 TESTED AT [address] (test lfjz=6358) [place] [address] RAPID DRUG SCREEN, [id number] 09:31:00 Test Item Value Reference Range Comments BARBITURATE URINE (BEAKER) (test khrh=538) Negative Negative BENZODIAZEPINE SCREEN URINE (BEAKER) (test Negative Negative idog=786) COCAINE (METAB.) SCREEN (BEAKER) (test lows=1404) Negative Negative METHADONE SCREEN (BEAKER) (test ghds=7508) Negative Negative OPIATE SCREEN URINE (BEAKER) (test rrzo=173) Positive Negative CANNABINOID SCREEN URINE (BEAKER) (test qblw=173) Negative Negative AMPH/METHAMPH SCREEN (BEAKER) (test xldn=0687) Negative Negative PHENCYCLIDINE SCREEN URINE (BEAKER) (test voaq=917) Negative Negative OXYCODONE SCREEN URINE (BEAKER) (test nqwz=2541) Negative Negative DRUG CUTOFF CONC.Cocaine 300 ng/mL Cannabinoid 50 ng/mL Benzodiazepine 200 ng/mLBarbiturate 200 ng/ mLPhencyclidine 25 ng/mLOpiate 300 ng/mLMethadone 300 ng/mLAmphetamine/ 1000 ng/mL MethamphetamineOxycodone 300 ng/mLURINALYSIS W/ [id number] 09:29:00 Test Item Value Reference Range Comments COLOR (BEAKER) (test oiyu=928) Colorless CLARITY (BEAKER) (test nfzp=428) Clear SPECIFIC GRAVITY UA (BEAKER) (test gare=431) 1.050 1.001-1.035 PH UA (BEAKER) (test ossb=976) 7.5 5.0-8.0 PROTEIN UA (BEAKER) (test ibxb=902) Negative Negative GLUCOSE UA (BEAKER) (test awab=175) Negative Negative KETONES UA (BEAKER) (test grfz=808) Negative Negative BILIRUBIN UA (BEAKER) (test ypwc=846) Negative Negative BLOOD UA (BEAKER) (test vfuj=249) Negative Negative NITRITE UA (BEAKER) (test vgcr=892) Negative Negative LEUKOCYTE ESTERASE UA (BEAKER) (test tini=861) Negative Negative UROBILINOGEN UA (BEAKER) (test rbee=504) 0.2 mg/dL 0.2-1.0 RBC UA (BEAKER) (test zcgn=911) 1 /HPF WBC UA (BEAKER) (test grna=909) 1 /HPF SQUAMOUS EPITHELIAL (BEAKER) (test xfkf=835) < /HPF SOURCE(BEAKER) (test vcnt=6444) Urine, [place] PLATELET AGGREGATION: FUNCTION [id number] 08:52:00 Test Item Value Reference Range Comments WEAK ADP RESULT(BEAKER) (test 13 % 60-91 ulwz=5256) PLATELET FUNCTION SCREEN 0-39% indicates marked platelet INTERP (BEAKER) (test dysfunction wjhh=4500) [id number] Racquel Acevedo MD (BEAKER) (test mpot=6943) (electronic signature) PLATELET COUNT AGG (BEAKER) 141 K/CU MM 150-430 (test yuei=1325) TROPONIN [id number] 05:06:00 Test Item Value Reference Range Comments TROPONIN I (BEAKER) (test snoh=307) < ng/mL 0.00-0.03 Effective 07/06/2014: Reference Range ChangeNew: 0.00-0.03 Previous 0.00- 0.15Troponin I (TnI) levels must be interpreted in the context of the presenting symptoms and the clinical findings. Elevated TnI levels indicate myocardial damage, but are not specific for ischemic heart disease. Elevated TnI levels are seen in patients with other cardiac conditions (including myocarditis and congestive heartfailure), and slight TnI elevations occur in patients with other conditions, including sepsis, renalfailure, acidosis, acute neurological disease, and persistent tachyarrhythmia.[id number] 04:56: 00 Test Item Value Reference Range Comments MAGNESIUM (BEAKER) (test 2.0 mg/dL 1.6-2.6 Specimen slightly hemolyzed rvsn=903) [id number] 04:56:00 Test Item Value Reference Range Comments PHOSPHORUS (BEAKER) (test 1.9 mg/dL 2.3-4.7 Specimen slightly hemolyzed jxip=729) BASIC METABOLIC [id number] 04:56:00 Test Item Value Reference Range Comments SODIUM (BEAKER) (test 140 meq/L 136-145 jlbi=608) POTASSIUM (BEAKER) (test 4.3 meq/L 3.5-5.1 Specimen slightly jgro=047) hemolyzed CHLORIDE (BEAKER) (test 109 meq/L 98-107 dvtt=657) CO2 (BEAKER) (test 22 meq/L 22-29 tvaq=111) BLOOD UREA NITROGEN 19 mg/dL 7-21 (BEAKER) (test fkgy=378) CREATININE (BEAKER) (test 1.07 mg/dL 0.57-1.25 Specimen slightly kjeq=131) hemolyzed GLUCOSE RANDOM (BEAKER) 111 mg/dL 70-105 (test qrgs=958) CALCIUM (BEAKER) (test 8.6 mg/dL 8.4-10.2 beye=238) EGFR (BEAKER) (test 69 mL/min/1.73 sq m ESTIMATED GFR IS NOT dptj=9665) ACCURATE CREATININE CLEARANCE IN PREDICTING GLOMERULAR FILTRATION RATE. ESTIMATED GFR IS NOT APPLICABLE FOR DIALYSIS PATIENTS. [id number] 04:49:00 Test Item Value Reference Range Comments COL/EPI CLOSURE TIME (BEAKER) (test vuuq=8701) 104 Seconds 78-191 COL/ADP CLOSURE TIME (BEAKER) (test pyaz=3701) 65 Seconds 43-122 PLATELET COUNT AGG (BEAKER) (test soqk=2565) 148 K/CU MM 150-430 CBC W/PLT COUNT & AUTO [id number] 04:34:00 Test Item Value Reference Range Comments WHITE BLOOD CELL COUNT (BEAKER) (test wzhv=321) 6.1 K/ L 4.0-10.0 RED BLOOD CELL COUNT (BEAKER) (test xdep=842) 4.57 M/ L 4.20-5.80 HEMOGLOBIN (BEAKER) (test rrwm=947) 13.5 GM/DL 13.0-16.8 HEMATOCRIT (BEAKER) (test aozm=013) 40.9 % 40.0-50.0 MEAN CORPUSCULAR VOLUME (BEAKER) (test xier=603) 89.5 fL 82.0-98.0 MEAN CORPUSCULAR HEMOGLOBIN (BEAKER) (test 29.6 pg 27.0-33.0 gbas=366) MEAN CORPUSCULAR HEMOGLOBIN CONC (BEAKER) (test 33.1 GM/DL 32.0-36.0 qmfn=665) RED CELL DISTRIBUTION WIDTH (BEAKER) (test 11.9 % 10.3-14.2 lxhd=093) PLATELET COUNT (BEAKER) (test wdjj=290) 148 K/CU MM 150-430 MEAN PLATELET VOLUME (BEAKER) (test gmdn=113) 7.2 fL 6.5-10.5 NUCLEATED RED BLOOD CELLS (BEAKER) (test 0 /100 WBC 0-0 pjsy=597) NEUTROPHILS RELATIVE PERCENT (BEAKER) (test 81 % nghf=776) LYMPHOCYTES RELATIVE PERCENT (BEAKER) (test 11 % sfro=640) MONOCYTES RELATIVE PERCENT (BEAKER) (test 5 % jfst=618) EOSINOPHILS RELATIVE PERCENT (BEAKER) (test 2 % msas=059) BASOPHILS RELATIVE PERCENT (BEAKER) (test 0 % geft=624) NEUTROPHILS ABSOLUTE COUNT (BEAKER) (test 4.93 K/ L 1.80-8.00 afxo=871) LYMPHOCYTES ABSOLUTE COUNT (BEAKER) (test 0.69 K/ L 1.48-4.50 krua=026) MONOCYTES ABSOLUTE COUNT (BEAKER) (test 0.30 K/ L 0.00-1.30 ggbl=075) EOSINOPHILS ABSOLUTE COUNT (BEAKER) (test 0.14 K/ L 0.00-0.50 lkdc=142) BASOPHILS ABSOLUTE COUNT (BEAKER) (test 0.01 K/ L 0.00-0.20 yywb=026) 0.00
[2018-03-25 04:50] LABS: Absolute Lymphocytes (CBC) 0.7 K/uL (0.7-4.9); Absolute Monocytes 0.4 K/uL (0.1-1.3); Absolute Neutrophil 3.1 K/uL (1.8-8.0); Basophils % 0.6 % (0-1.3); Lymphocytes % 15.1 % (15.3-44.8); MCH 32.5 pg (27.0-35.0); MCV 92.1 fL (80-100); Monocytes % 9.7 % (3.3-12.3); RBC Red Blood Cell Count 4.13 M/uL (4.33-5.43)
[2018-03-25 04:58] LABS: Protime INR 1.02
[2018-03-25] MEDS ORDERED: NA CHLORIDE 0.9% 1,000 ML ONE (04:59)
[2018-03-25 05:25] LABS: ALT/SGPT 26 U/L (12-78); AST/SGOT 17 U/L (15-37); Albumin 3.5 g/dL (3.4-5.0); Alkaline Phosphatase 120 U/L (45-117); BUN Blood Urea Nitrogen 15 mg/dL (7-18); Bicarbonate 28 mmol/L (21-32); Bilirubin Direct 0.1 mg/dL (0-0.2); Bilirubin Total 0.3 mg/dL (0.2-1.0); CKMB Creatine Kinase MB < 1.0 ng/mL (0.3-3.6); Creatine Phosphokinase 38 U/L (39-308); Glucose Level 94 mg/dL (74-106); Magnesium 2.2 mg/dL (1.8-2.4); NT PRO-BNP 43 pg/mL (<125); Protein, Total 6.7 g/dL (6.4-8.2); Sodium Level 141 mmol/L (136-145)
[2018-03-25 05:37] LABS: Phenytoin (Dilantin) Level 14.7 ug/mL (10.0-20.0)
--- NOTE | 2018-03-25 06:30 | ER ---
Nurse's Notes [facility] Name: Nelson Murillo Age: 73 yrs Sex: Male : 1945 Arrival Date: 03/25/2018 Time: 03:57 Bed 5 Private MD: Cliff Alvarez C Diagnosis: Other chest pain;Headache;Acute upper respiratory infection, unspecified Presentation: 03/25 04:17 Presenting complaint: Patient states: pain behind his eyes since Saturday with a ak1 headache. pt c/o drainage from left eye. pt stated last time he had eye pain he had a "brain bleed" pt c/o throat pain started Saturday. pt c/o nasal congestion since Saturday with chest tightness starting saturday. Transition of care: patient was not received from another setting of care. Onset of symptoms was March 21, 2018. Risk Assessment: Do you want to hurt yourself or someone else? Patient reports no desire to harm self or others. Initial Sepsis Screen: Does the patient meet any 2 criteria? No. Patient's initial sepsis screen is negative. Does the patient have a suspected source of infection? No. Patient's initial sepsis screen is negative. Care prior to arrival: None. 04:17 Method Of Arrival: Ambulatory ak1 04:17 Acuity: HILARIA 3 ak1 Triage Assessment: 04:13 Headache History: Other pt stated last time he had eye pain and a headache he had ak1 "brain bleeds". General: Appears uncomfortable, Behavior is calm, cooperative. Pain: Pain currently is 10 out of 10 on a pain scale. Pain began 2-3 days ago. Also complains of photophobia, sleeplessness. EENT: Reports nasal congestion pain when swallowing since Saturday. Neuro: Level of Consciousness is awake, alert, obeys commands, Oriented to person, place, time, situation, Appropriate for age Spot Remover are equal bilaterally Moves all extremities. Gait is steady, Speech is normal, Facial symmetry appears normal, Reports headache behind both eyes. Cardiovascular: Reports since chest tightness since Saturday. Respiratory: No deficits noted. GI: No signs and/or symptoms were reported involving the gastrointestinal system. : No signs and/or symptoms were reported regarding the genitourinary system. Derm: No signs and/or symptoms reported regarding the dermatologic system. Musculoskeletal: No signs and/or symptoms reported regarding the musculoskeletal system. 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 - Social history:: Smoking status: Patient/guardian denies using tobacco. - Ebola Screening: : No symptoms or risks identified at this time. - Family history:: not pertinent. Screenin:19 Abuse screen: Denies threats or abuse. Denies injuries from another. Nutritional ak1 screening: No deficits noted. Tuberculosis screening: No symptoms or risk factors identified. Fall Risk None identified. Assessment: 04:38 Pain: Complains of pain in chest, headache, bilateral eyes. ak1 06:00 Reassessment: Patient appears in no apparent distress at this time. No changes from ak1 previously documented assessment. Patient and/or family updated on plan of care and expected duration. Pain level reassessed. Patient is alert, oriented x 3, equal unlabored respirations, skin warm/dry/pink. 07:01 Reassessment: Patient appears in no apparent distress at this time. No changes from ak1 previously documented assessment. Patient and/or family updated on plan of care and expected duration. Pain level reassessed. Patient is alert, oriented x 3, equal unlabored respirations, skin warm/dry/pink. report given to ja Gonsales RN and chi SHIRLEY. 08:00 Reassessment: pt updated on bed assignment, pt stated " the doctor has not told me sg whats going on and why they are admitting me." pt updated that has requested pt remain in the ED until he has a chance to assess pt. report has been called to Penny SHIRLEY. General: Appears in no apparent distress. comfortable, well groomed, well developed, well nourished, Behavior is calm, cooperative, appropriate for age. Neuro: No deficits noted. Denies blurred vision headache. Respiratory: No deficits noted. 08:18 Reassessment: Patient appears in no apparent distress at this time. Patient and/or sg family updated on plan of care and expected duration. Pain level reassessed. Patient is alert, oriented x 3, equal unlabored respirations, skin warm/dry/pink. at bedside evaluating pt at this time. 08:19 Reassessment: Patient appears in no apparent distress at this time. at bedside sg evaluating pt at this time, pt to go up after evaluation. 08:39 Reassessment: Cardio at bedside for ECHO at this time, pt finished breakfast ate 75 sg percent. Vital Signs: 04:09 BP 147 / 90; Pulse 71; Resp 16; Temp 98.0(O); Pulse Ox 97% on R/A; Weight 81.65 kg (R); ak1 Height 5 ft. 8 in. (172.72 cm) (R); Pain 10/10; 04:42 BP 126 / 89; Pulse 62; Resp 18; Pulse Ox 97% on R/A; ak1 06:01 BP 133 / 92; Pulse 72; Resp 16; Temp 98.0; Pulse Ox 98% on R/A; ak1 07:45 BP 133 / 82; Pulse 72; Resp 16; Temp 98.0; Pulse Ox 98% on R/A; Pain 0/10; sg 04:09 Body Mass Index 27.37 (81.65 kg, 172.72 cm) ak1 ED Course: 03:57 Patient arrived in ED. al2 03:58 Cliff Alvarez MD is Private Physician. al2 04:09 Karol Butler, RN is Primary Nurse. ak1 04:13 Arm band placed on Patient placed in an exam room, on a stretcher, on clinical research monitor, ak1 on pulse oximetry, Patient notified of wait time. 04:18 Triage completed. ak1 04:19 Patient has correct armband on for positive identification. Placed in gown. Bed in low ak1 position. Call light in reach. Side rails up X 1. Adult w/ patient. monitoring specialist on. Pulse ox on. NIBP on. 04:39 Initial lab(s) drawn, by me, sent to lab. EKG done, by ED staff, X-ray(s) taken. ak1 Inserted saline lock: 20 gauge in right forearm, using aseptic technique. Blood collected. 04:41 X-ray completed. Portable x-ray completed in exam room. Patient tolerated procedure kw well. 04:44 Claude Turenr MD is Attending Physician. dariel 04:52 Head Brain Wo Cont CT In Process Unspecified. EDMS 04:[address] via wheelchair. kw1 04:57 CT completed. Patient tolerated procedure well. Patient moved back from CT. kw1 05:52 XRAY Chest (1 view) In Process Unspecified. EDMS 06:24 Cliff Alvarez MD is Hospitalizing Provider. dariel 06:39 No provider procedures requiring assistance completed. Patient admitted, IV remains in ak1 place. Administered Medications: 05:07 Drug: NS 0.9% 1000 ml Route: IV; Rate: 75 ml/hr; Site: right forearm; ak1 06:40 Follow up: IV Status: Infusion continued upon admission ak1 Outcome: 06:29 Decision to Hospitalize by Provider. dariel 09:05 Patient left the ED. Signatures: Dispatcher [employer] Ja David, Claude Hammond RN, MD MD cha Whitley, Kimberlee kw Krenek, Amber, RN RN ak1 Ruth Saucedo Angelica al2
--- NOTE | 2018-03-25 06:30 | EDPHYS ---
Physician Documentation [facility] Name: Nelson Murillo Age: 73 yrs Sex: Male : 1945 Arrival Date: 03/25/2018 Time: 03:57 Bed 5 Private MD: Cliff Alvarez C ED Physician Claude Turner HPI: 03/25 04:52 This 73 yrs old Male presents to ER via Ambulatory with complaints of dariel Headache, Nasal Congestion, Eye Pain. 04:52 The patient complains of pain to the forehead, right eye, left eye, left temporal area dariel and right temporal area. The patient describes the headache as aching. Onset: The symptoms/episode began/occurred 1 day(s) ago. Associated signs and symptoms: The patient has no apparent associated signs or symptoms. Severity of symptoms: At its worst the pain was mild, in the emergency department the pain is unchanged. Headache History: The patient has had previous headaches and this one is similar to previous episodes. The symptoms are alleviated by nothing. the symptoms are aggravated by nothing. The patient has not experienced similar symptoms in the past. 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 - Social history:: Smoking status: Patient/guardian denies using tobacco. - Ebola Screening: : No symptoms or risks identified at this time. - Family history:: not pertinent. ROS: 04:52 Constitutional: Negative for fever, chills, and weight loss, Eyes: Negative for injury, dariel pain, redness, and discharge, ENT: Negative for injury, pain, and discharge, Neck: Negative for injury, pain, and swelling, Respiratory: Negative for shortness of breath, cough, wheezing, and pleuritic chest pain, Abdomen/GI: Negative for abdominal pain, nausea, vomiting, diarrhea, and constipation, Back: Negative for injury and pain, : Negative for injury, bleeding, discharge, and swelling, MS/Extremity: Negative for injury and deformity, Skin: Negative for injury, rash, and discoloration, Psych: Negative for depression, anxiety, suicide ideation, homicidal ideation, and hallucinations, Allergy/Immunology: Negative for hives, rash, and allergies, Endocrine: Negative for neck swelling, polydipsia, polyuria, polyphagia, and marked weight changes. 04:52 Cardiovascular: Positive for chest pain, of the chest. 04:52 Neuro: Positive for headache. Exam: 04:52 Constitutional: This is a well developed, well nourished patient who is awake, alert, dariel and in no acute distress. Head/Face: Normocephalic, atraumatic. Eyes: Pupils equal round and reactive to light, extra-ocular motions intact. Lids and lashes normal. Conjunctiva and sclera are non-icteric and not injected. Cornea within normal limits. Periorbital areas with no swelling, redness, or edema. ENT: Nares patent. No nasal discharge, no septal abnormalities noted. Tympanic membranes are normal and external auditory canals are clear. Oropharynx with no redness, swelling, or masses, exudates, or evidence of obstruction, uvula midline. Mucous membranes moist. Neck: Trachea midline, no thyromegaly or masses palpated, and no cervical lymphadenopathy. Supple, full range of motion without nuchal rigidity, or vertebral point tenderness. No Meningismus. Chest/axilla: Normal chest wall appearance and motion. Nontender with no deformity. No lesions are appreciated. Cardiovascular: Regular rate and rhythm with a normal S1 and S2. No gallops, murmurs, or rubs. Normal PMI, no JVD. No pulse deficits. Respiratory: Lungs have equal breath sounds bilaterally, clear to auscultation and percussion. No rales, rhonchi or wheezes noted. No increased work of breathing, no retractions or nasal flaring. Abdomen/GI: Soft, non-tender, with normal bowel sounds. No distension or tympany. No guarding or rebound. No evidence of tenderness throughout. Back: No spinal tenderness. No costovertebral tenderness. Full range of motion. Skin: Warm, dry with normal turgor. Normal color with no rashes, no lesions, and no evidence of cellulitis. MS/ Extremity: Pulses equal, no cyanosis. Neurovascular intact. Full, normal range of motion. Neuro: Awake and alert, GCS 15, oriented to person, place, time, and situation. Cranial nerves II-XII grossly intact. Motor strength 5/5 in all extremities. Sensory grossly intact. Cerebellar exam normal. Normal gait. Psych: Awake, alert, with orientation to person, place and time. Behavior, mood, and affect are within normal limits. 04:52 Musculoskeletal/extremity: DVT Exam: No signs of deep vein thrombosis. no pain, no swelling, no tenderness, negative Homans' sign noted on exam, no appreciated bluish discoloration, no erythema, no increased warmth. Vital Signs: 04:09 BP 147 / 90; Pulse 71; Resp 16; Temp 98.0(O); Pulse Ox 97% on R/A; Weight 81.65 kg (R); ak1 Height 5 ft. 8 in. (172.72 cm) (R); Pain 10/10; 04:42 BP 126 / 89; Pulse 62; Resp 18; Pulse Ox 97% on R/A; ak1 06:01 BP 133 / 92; Pulse 72; Resp 16; Temp 98.0; Pulse Ox 98% on R/A; ak1 07:45 BP 133 / 82; Pulse 72; Resp 16; Temp 98.0; Pulse Ox 98% on R/A; Pain 0/10; sg 04:09 Body Mass Index 27.37 (81.65 kg, 172.72 cm) [facility] MDM: 04:44 Patient medically screened. [facility] 04:57 Data reviewed: vital signs, nurses notes, lab test result(s), EKG, radiologic studies, [facility] CT scan, plain films. 03/25 04:26 Order name: Basic Metabolic Panel [facility] 03/25 04:26 Order name: CBC with Diff; Complete Time: 06:20 [facility] 03/25 04:26 Order name: Ckmb; Complete Time: 06:20 ak1 03/25 04:26 Order name: CPK; Complete Time: 06:20 ak1 03/25 04:26 Order name: LFT's; Complete Time: 06:20 ak1 03/25 04:26 Order name: Magnesium; Complete Time: 06:20 ak1 03/25 04:26 Order name: NT PRO-BNP; Complete Time: 06:20 ak1 03/25 04:26 Order name: PT-INR; Complete Time: 06:20 ak1 03/25 04:26 Order name: Ptt, Activated; Complete Time: 06:20 ak1 03/25 04:26 Order name: Troponin (emerg Dept Use Only); Complete Time: 06:20 ak1 03/25 04:26 Order name: Basic Metabolic Panel; Complete Time: 06:20 EDMS 03/25 04:50 Order name: Lipase; Complete Time: 06:20 dariel 03/25 04:51 Order name: Dilantin; Complete Time: 06:20 dariel 03/25 06:20 Order name: Flu; Complete Time: 07:16 dariel 03/25 04:26 Order name: XRAY Chest (1 view) ak1 03/25 04:26 Order name: EKG; Complete Time: 04:27 ak1 03/25 04:26 Order name: Head Brain Wo Cont CT ak1 03/25 06:32 Order name: Urine Dipstick--Ancillary (enter results) 2 03/25 06:41 Order name: CONS Physician Consult EDMS 03/25 06:41 Order name: Echo with Doppler EDMS 03/25 06:44 Order name: Regular EDMS 03/25 06:44 Order name: EKG Electrocardiogram EDMS 03/25 06:44 Order name: Basic Metabolic Panel EDMS 03/25 06:44 Order name: Basic Metabolic Panel EDMS 03/25 06:44 Order name: CBC with Automated Diff EDMS 03/25 06:44 Order name: CBC with Automated Diff EDMS 03/25 06:44 Order name: Troponin I EDMS 03/25 06:44 Order name: Troponin I EDMS 03/25 06:44 Order name: Troponin I EDMS 03/25 04:26 Order name: Cardiac monitoring; Complete Time: 04:26 ak1 03/25 04:26 Order name: EKG - Nurse/Tech; Complete Time: 04:26 ak1 03/25 04:26 Order name: IV Saline Lock; Complete Time: 04:37 ak1 03/25 04:26 Order name: Labs collected and sent; Complete Time: 04:38 ak1 03/25 04:26 Order name: O2 Per Protocol; Complete Time: 04:26 ak1 03/25 04:26 Order name: O2 Sat Monitoring; Complete Time: 04:26 ak1 03/25 04:26 Order name: Urine Dipstick-Ancillary (obtain specimen); Complete Time: 06:36 ak1 03/25 06:44 Order name: EKG Electrocardiogram EDTN 03/25 06:44 Order name: EKG Electrocardiogram EDMS 03/25 06:44 Order name: EKG Electrocardiogram EDMS Administered Medications: 05:07 Drug: NS 0.9% 1000 ml Route: IV; Rate: 75 ml/hr; Site: right forearm; ak1 06:40 Follow up: IV Status: Infusion continued upon admission ak1 Disposition: 03/25/18 06:29 Hospitalization ordered by Cliff Alvarez for Observation. Preliminary diagnosis are Other chest pain, Headache, Acute upper respiratory infection, unspecified. - Bed requested for Telemetry/MedSurg (observation). - Status is Observation. sg - Condition is Stable. - Problem is new. - Symptoms have improved. UTI on Admission? No Signatures: Dispatcher [employer] EDCari Soto RN RN dw Gay, Steven, RN RN sg Anderson, Corey, MD MD cha Krenek, Amber RN RN ak1 Corrections: (The following items were deleted from the chart) 07:06 06:29 Hospitalization Ordered by A Antonio SOLER for Observation. Preliminary diagnosis is dw Other chest pain; Headache; Acute upper respiratory infection, unspecified. Bed requested for Telemetry/MedSurg (observation). Status is Observation. Condition is Stable. Problem is new. Symptoms have improved. UTI on Admission? No. dariel 09:05 07:06 03/25/2018 06:29 Hospitalization Ordered by A Antonio SOLER for Observation. sg Preliminary diagnosis is Other chest pain; Headache; Acute upper respiratory infection, unspecified. Bed requested for Telemetry/MedSurg (observation). Status is Observation. Condition is Stable. Problem is new. Symptoms have improved. UTI on Admission? No. dw
[2018-03-25] MEDS ORDERED: ONDANSETRON 4 MG/2 ML VIAL IV PRN (06:41)
[2018-03-25] MEDS ORDERED: ACETAMINOPHEN 500 MG TAB PO PRN (06:41)
--- NOTE | 2018-03-25 06:52 | EKG ---
Test Date: 2018-03-25 Test Time: 04:22:26 [place] Miner: CHARLENE MEASUREMENT RESULTS: Intervals: Rate: 63 MA: 212 QRSD: 90 QT: 398 QTc: 407 Cuthbert: P: 54 MA: 212 QRS: 37 T: 61 INTERPRETIVE STATEMENTS: Sinus rhythm with 1st degree AV block Otherwise normal ECG Compared to ECG 10/27/2017 12:14:24 First degree AV block now present Sinus bradycardia no longer present Electronically Signed On 03-25-18 06:51:13 CDT by Boni Baptiste
[2018-03-25 08:27] LABS: Urine Blood TRACE (NEG); Urine Glucose NEGATIVE (NEG); Urine Protein TRACE (NEG)
--- NOTE | 2018-03-25 08:47 | RAD REPORT ---
EXAM DESCRIPTION: RAD - Chest Single View - 03/25/2018 5:52 am CLINICAL HISTORY: CHEST PAIN Chest pain. COMPARISON: Chest Single View dated 10/28/2017; Chest Single View dated 10/27/2017; Chest Single View dated 04/19/2017; Chest Single View dated 03/15/2017 FINDINGS: Portable technique limits examination quality. The lungs are grossly clear. The heart is normal in size. No displaced fractures.Right-sided humeral prosthesis. IMPRESSION: No acute intrathoracic process suspected.
--- NOTE | 2018-03-25 08:48 | RAD REPORT ---
EXAM DESCRIPTION: CT - Head Brain Wo Cont - 03/25/2018 6:37 am CLINICAL HISTORY: HEADACHE COMPARISON: Head Brain Wo Cont dated 04/19/2017; Head Brain Wo Cont dated 03/15/2017 TECHNIQUE: All CT scans are performed using dose optimization technique as appropriate and may inclu de automated exposure control or mA/KV adjustment according to patient size. FINDINGS: No intracranial hemorrhage, hydrocephalus or extra-axial fluid collection.No areas of brai n edema or evidence of midline shift. The paranasal sinuses and mastoids are clear. Prior left frontal craniotomy changes. IMPRESSION: No acute intracranial abnormality.
[2018-03-25] MEDS ORDERED: FAMOTIDINE 20 MG/2 ML VIAL IV SCH (09:00)
[2018-03-25 09:12] VITALS: O2SAT 98
[2018-03-25 09:46] VITALS: BMI 27.6
--- NOTE | 2018-03-25 11:32 | CON ---
Chief Complaint: Chest pain. History Of Present Illness: Mr. Murillo started to get an upper respiratory infection several days ago , perhaps a week ago. No fevers, but cough, productive of lots of phlegm. Later, his cough started hurting and he noticed that when he would cough hard or sit up, the lower part of his sternum or the epigastrium would be painful. When he sits forward, it would cause a shooting pain. He decided to h ave that evaluated. He thought it might indicate heart trouble. Since he has been here, his cardiac enzymes and EKGs all look good. Five months ago, a nuclear stress test was normal. The patient has never had any atherosclerotic vascular disease. He has a history of intracerebral hemorrhages, seiz ure disorder. He has dyslipidemia, gastroesophageal reflux disease, and hypertension as well. Medications: He takes pravastatin, glucosamine, omeprazole, acetaminophen, metoprolol, phenytoin, vi tamin B12, iron, and Zetia. Physical Examination: Vital Signs: 5 feet 8 inches, 182 pounds. HEENT: Normal. Lungs: Clear. Heart: Normal. Abdomen: Soft. Extremities: Normal. Electrocardiogram does not reveal any change in old EKG such as first-degree AV block, otherwise it i s normal. Impression: Mr. Murillo is not having an acute coronary syndrome. I think if his enzymes remain юлия l, he could probably be discharged have his upper respiratory infection treated as deemed fit by Dr. Alvarez. Once his cough goes away, I think his chest pain will be easy to manage. TEODORO/BERKLEY Voice ID: [id number] Report ID: [id number]
[2018-03-25 12:08] VITALS: BP 115/78; TEMP 98.5
--- NOTE | 2018-03-25 17:11 | ECHO ---
HEIGHT: 5 ft 8 in WEIGHT: 182 lb 0 oz DATE OF STUDY: 03/25/[address]: Claude Turner MD 2-DIMENSIONAL: YES M.MODE: YES DOPPLER: YES COLOR FLOW: YES TDS: PORTABLE: DEFINITY: BUBBLE STUDY: DIAGNOSIS: CHEST PAIN CARDIAC HISTORY: CATHERIZATION: NO SURGERY: NO PROSTHETIC VALVE: NO PACEMAKER: NO MEASUREMENTS (cm) DIASTOLIC (NORMALS) SYSTOLIC (NORMALS) IVSd 1.0 (0.6-1.2) LA Diam 3.2 (1.9-4.0) LVEF 68% LVIDd 5.2 (3.5-5.7) LVIDs 3.2 (2.0-3.5) %FS 38% LVPWd 1.2 (0.6-1.2) Ao Diam 3.4 (2.0-3.7) 2 DIMENSIONAL ASSESSMENT: RIGHT ATRIUM: NORMAL LEFT ATRIUM: NORMAL RIGHT VENTRICLE: NORMAL LEFT VENTRICLE: NORMAL TRICUSPID VALVE: NORMAL MITRAL VALVE: NORMAL PULMONIC VALVE: NORMAL AORTIC VALVE: NORMAL PERICARDIAL EFFUSION: NONE AORTIC ROOT: NORMAL LEFT VENTRICULAR WALL MOTION: NORMAL DOPPLER/COLOR FLOW: MILD AORTIC REGURGITATION. COMMENTS: NORMAL TWO DIMENSIONAL ECHOCARDIOGRAM. MILD AORTIC REGURGITATION. TECHNOLOGIST: JED GARCIA
[2018-03-25] MEDS ORDERED: METOPROLOL TAR 25 MG TAB PO SCH (18:00)
--- NOTE | 2018-03-26 01:43 | HP ---
Date of Admission: 03/25/2018 Chief Complaint: Cough, congestion, chest pain. History Of Present Illness: This is a 73-year-old male patient who started to have some cough, chest congestion over the weekend. Denies any fever, no sore throat, not coughing up any colored mucus. No shortness of breath, no wheezing, no vomiting, or diarrhea. Today, he started to have some chest pain in the lower center of the chest. Pain was worse with movement like trying to get in and out of bed. No fall, no injury. He came into emergency room with these complaints. After he was evaluate d in the ER, he was admitted to the hospital, and I saw him in the emergency room this morning. Soon after I saw him, irrigating pump operator evaluated him as well. Allergies: TO LORAZEPAM. Medications: List reviewed. Review of Systems: Respiratory: As mentioned above. Cardiovascular: As mentioned above. All other systems reviewed and negative. Past Surgical History: IVC filter placement in December 2016 for DVT of right leg and at that time he was not a candidate for anticoagulation therapy because of intracranial hemorrhage. Past Surgical History: Also significant for hernia repair in 2013 and right shoulder surgery in 2006 , appendectomy, tonsillectomy, vasectomy. Family History: Significant for coronary artery disease and lung cancer. Social History: Prior history of smoking, not at present time. Use of alcohol negative. Past Medical History: Significant for subdural hematoma, pneumonia, right leg DVT, hypertension, sei zure disorder, anemia, mixed hyperlipidemia, gastroesophageal reflux disease, osteoporosis, subarachn oid hemorrhage in September 2016, sleep apnea, benign prostatic hypertrophy. Physical Examination: VITAL SIGNS: Height 5 feet 11 inches, weight 165 pounds, temperature 98, pulse 64, respiratory rate 18, blood pressure 140/80. General: Awake, alert, oriented, not in distress. HEENT: Head atraumatic, normocephalic. Conjunctivae nonerythematous. Sclerae white. Mouth, no thr ush or edema noted. Ears/Nose, no mass, lesion, discharge noted. Neck: Supple. No JVD, lymph nodes, bruit, thyromegaly noted. Lungs: Bilateral good equal air entry. Clear to auscultation. No rhonchi. No rales. Heart: Normal heart sounds, no murmur or gallop. Abdomen: Soft, bowel sounds normal. No guarding, rigidity, tenderness, mass, hepatosplenomegaly, dis tention, or bruit noted. Extremities: No leg edema. No calf tenderness. Skin: No rash, ulcer, cellulitis. Lymphatics: No lymph node enlargement in neck, supraclavicular, infraclavicular region. Neuro: No focal neurological deficit. Chest: Unremarkable. External Genitalia: Deferred. Rectal: Deferred. Laboratory Data: White count 4.4, hemoglobin 13.4, platelets 113. Sodium 141, potassium 4, chloride 108, bicarb 28, BUN 15, creatinine 1.0, glucose 94. Liver function tests unremarkable. Troponin le ss than 0.02 x3. Lipase 154. Dilantin level 14.7. EKG; normal sinus rhythm, no acute ST-T changes. Chest x-ray; no acute cardiopulmonary changes. CAT scan of the head; no acute intracranial changes . Hospital Course: After the patient was evaluated in the ER, he was admitted to the hospital for obse rvation. His ID was ruled out by getting serial cardiac enzymes. The patient had a negative stress test done in October of this year, results reviewed. Cardiology consultation was obtained. The patien t's chest pain is atypical in nature and details were discussed with the patient and his and Dr. Baptiste from Cardiology also had the same. No further workup is indicated at this point, and the pat ient was discharged to go home in stable condition with instruction to continue prior home medication s. He does not need any antibiotic for his cough congestion and he should continue to improve with h is respiratory symptoms. Final Diagnoses: 1.Chest pain, atypical. 2.Hypertension. 3.Seizure disorder. 4.Mixed hyperlipidemia. 5.Gastroesophageal reflux disease. 6.Osteoporosis. 7.Sleep apnea. 8.Benign prostatic hypertrophy. LADONNA/MODL Voice ID: [id number]
== END 2018-03-25 14:00 | disposition home or self-care (01) ==
LOC: ER 03:53 → ERHOLD 06:34 → 4TH 08:06
PROVIDERS: ADMIT Internal Medicine; ATTEND Internal Medicine
DX: R07.89 Other chest pain (principal); I10 Essential (primary) hypertension; G40.909 Epilepsy, unspecified, not intractable, without status epilepticus; E78.2 Mixed hyperlipidemia; K21.9 Gastro-esophageal reflux disease without esophagitis; N40.0 Benign prostatic hyperplasia without lower urinary tract symptoms; G47.30 Sleep apnea, unspecified; I35.1 Nonrheumatic aortic (valve) insufficiency; I44.0 Atrioventricular block, first degree; Z86.718 Personal history of other venous thrombosis and embolism; Z86.73 Personal history of transient ischemic attack (TIA), and cerebral infarction without residual deficits; Z88.8 Allergy status to other drugs, medicaments and biological substances; M81.0 Age-related osteoporosis without current pathological fracture
CPT/HCPCS: 36415; 70450; 71045; 80048; 80076; 80185; 81003; 82550; 82553; 83690; 83735; 83880; 84484 ×3; 85025; 85610; 85730; 87804 ×2; 93005; 93306; G0378 ×2; J7030; 96360; 96361; 99285

== ENCOUNTER 2018-09-27 19:12 | Observation (INO) | payer OTHER ==
--- OUTSIDE RECORDS SUMMARY | 2018-09-27 19:14 | XMS REPORT | Clinical Summary ---
:1945 Author Organization [facility] Address [address] [place] [id number] Care Team Providers Name Role Phone Belkis Primary Care Provider Unavailable Allergies No Known Allergies Medications Medication Sig Dispensed Refills Start Date End Date Status omeprazole (PRILOSEC) Take 20 mg by 0 Active 20 MG capsule mouth 2 (two) times daily. pravastatin Take 40 mg by 0 Active (PRAVACHOL) 40 MG mouth daily. tablet amLODIPine (NORVASC) Take 1 tablet (5 30 tablet 0 01/28/2017 01/28/2018 5 MG tablet mg total) by mouth daily. Active Problems Problem Noted Date Delirium 01/14/2017 History of subdural hemorrhage 01/13/2017 Hyponatremia 01/13/2017 DVT (deep venous thrombosis) 01/13/2017 Acute deep vein thrombosis (DVT) of popliteal vein of right lower 01/12/2017 extremity Thrombocytopenia 01/12/2017 Hyperlipidemia 01/12/2017 GERD (gastroesophageal reflux disease) 01/12/2017 Acute encephalopathy 12/25/2016 Midline shift of brain 12/25/2016 Weakness of both lower extremities 12/24/2016 Midline low back pain with left-sided sciatica, unspecified chronicity 2016 Midline low back pain with left-sided sciatica 12/18/2016 Intracranial subdural hematoma 12/01/2016 Focal and partial seizures 11/19/2016 Aphasia 10/27/2016 Headache due to intracranial disease 10/18/2016 SDH (subdural hematoma) 10/13/2016 SAH (subarachnoid hemorrhage) 10/11/2016 Seizure disorder Hypertension, essential NGA (obstructive sleep apnea) Social History Tobacco Use Types Packs/Day Years Used Date Former Smoker Cigarettes Quit: 08/19/1968 Alcohol Use Drinks/Week oz/Week Comments No quit in 2006 Sex Assigned at Date Recorded Not on file Job Start Date Occupation Industry Not on file Not on file Not on file Travel History Travel Start Travel End No recent travel history available. Last Filed Vital Signs Not on file Plan of Treatment Not on file Implants Implanted Type Area Concrete Stone Fabricating Supervisor Device Shelf Model / Identifier Expiration Serial / Date Lot Matrix Floseal Hemo W/O Ndl 10 [id number] - [id number] Cement/Fi Left: POLLARD: BIOSCI 04/18/2018 [id number] / Implanted: Qty: 1 on 12/02/2016 by Michael Alonso MD ller/Luis Alberto Head / sive [id number] Matrix Floseal Hemo W/O Ndl 10 [id number] - [id number] Cement/Fi Left: POLLARD: BIOSCI 05/18/2018 [id number] / Implanted: Qty: 1 on 12/25/2016 by Michael Alonso MD ller/Daie Head / sive [id number] Cover [place] Low Prof 14mm [id number] - [id number] Fracture/ Left: RAPHAEL: RAPHAEL [id number] / Implanted: Qty: 1 on 12/02/2016 by Michael Alonso MD Fixation Head LEIBINGER / Plt W/Tab Un3 2h [id number] - [id number] Fracture/ Left: RAPHAEL:CRANIOMA [id number] / Implanted: Qty: 2 on 12/02/2016 by Michael Alonso MD Fixation Head XILLOFACIAL / Scr Un3 [place] Self Drl 1.5x4mm [id number] - [id number] Fracture/ Left: RAPHAEL: CRANIOMA [id number] / Implanted: Qty: 9 on 12/02/2016 by Michael Alonso MD Fixation Head XILLOFACIAL / Cath Bactiseal Evd [id number] - [id number] Neuro Left: J &J:LUCIUS & 2016 [id number] / Implanted: Qty: 1 on 12/25/2016 by Michael Alonso MD Head SHURTLE / [id number] Results Not on fileafter 09/26/2017 Insurance Payer Benefit Plan / Group Subscriber ID Type Phone Address MEDICARE MEDICARE A B xxxxxxxxxx Medicare AETNA - MGD CARE AETNA INDEMNITY NON CONTR xxxxxxxxxx Comm Advance Directives For more information, please contact:[address] [phone] Code Status Date Activated Date Inactivated Comments Full Code 01/12/2017 11:08 AM 01/28/2017 5:17 PM This code status was determined by: Patient Full Code 12/23/2016 9:12 AM 01/04/2017 7:20 PM This code status was determined by: Patient Full Code 12/18/2016 4:53 PM 12/19/2016 12:43 PM This code status was determined by: Patient Full Code 12/01/2016 10:00 PM 12/04/2016 1:44 PM This code status was determined by: Patient Full Code 10/26/2016 10:01 PM 10/31/2016 1:05 PM This code status was determined by: Patient
--- OUTSIDE RECORDS SUMMARY | 2018-09-27 19:20 | XMS REPORT ---
:1945 Author Organization [facility] Address [address] [place] [address] Dr. Daly [address] [place] [id number] Care Team Providers Name Role Phone JEFF [...] Comments WHITE BLOOD CELL COUNT (BEAKER) (test joed=295) 2.8 K/ L 4.0-10.0 RED BLOOD CELL COUNT (BEAKER) (test ezdk=124) 3.42 M/ L 4.20-5.80 HEMOGLOBIN (BEAKER) (test pgsm=404) 9.3 GM/DL 13.0-16.8 HEMATOCRIT (BEAKER) (test ndul=442) 29.3 % 40.0-50.0 MEAN CORPUSCULAR VOLUME (BEAKER) (test simp=307) 85.7 fL 82.0-98.0 MEAN CORPUSCULAR HEMOGLOBIN (BEAKER) (test bipw=937) 27.1 pg 27.0-33.0 MEAN CORPUSCULAR HEMOGLOBIN CONC (BEAKER) (test mcbr=480) 31.7 GM/DL 32.0- 36.0 RED CELL DISTRIBUTION WIDTH (BEAKER) (test cdpe=733) 16.5 % 10.3-14.2 PLATELET COUNT (BEAKER) (test pkio=327) 163 K/CU MM 150-430 MEAN PLATELET VOLUME (BEAKER) (test xzaj=475) 6.6 fL 6.5-10.5 NUCLEATED RED BLOOD CELLS (BEAKER) (test nols=688) 0 /100 WBC 0-0 NEUTROPHILS RELATIVE PERCENT (BEAKER) (test gkdp=689) 64 % LYMPHOCYTES RELATIVE PERCENT (BEAKER) (test yhbe=983) 18 % MONOCYTES RELATIVE PERCENT (BEAKER) (test elvh=360) 11 % EOSINOPHILS RELATIVE PERCENT (BEAKER) (test qvsb=522) 7 % BASOPHILS RELATIVE PERCENT (BEAKER) (test zoiy=286) 0 % NEUTROPHILS ABSOLUTE COUNT (BEAKER) (test hmvg=383) 1.75 K/ L 1.80-8.00 LYMPHOCYTES ABSOLUTE COUNT (BEAKER) (test zpyz=107) 0.50 K/ L 1.48-4.50 MONOCYTES ABSOLUTE COUNT (BEAKER) (test iaqo=149) 0.30 K/ L 0.00-1.30 EOSINOPHILS ABSOLUTE COUNT (BEAKER) (test weyp=336) 0.20 K/ L 0.00-0.50 BASOPHILS ABSOLUTE COUNT (BEAKER) (test cwbm=503) 0.01 K/ L 0.00-0.20 0.00(MANUAL DIFFERENTIAL)2017-01-28 10:16:00 Test Item Value Reference Range Comments TOTAL COUNTED (BEAKER) (test qtvt=8396) WBC MORPHOLOGY (BEAKER) (test gryr=559) Normal PLT MORPHOLOGY (BEAKER) (test azzo=844) Normal RBC MORPHOLOGY (BEAKER) (test sbtz=721) Normal BASIC METABOLIC [id number] 07:36:00 Test Item Value Reference Range Comments SODIUM (BEAKER) (test 134 meq/L 136-145 oxmt=658) POTASSIUM (BEAKER) (test 4.0 meq/L 3.5-5.1 qhjc=580) CHLORIDE (BEAKER) (test 102 meq/L 98-107 fykq=944) CO2 (BEAKER) (test 22 meq/L 22-29 ijmy=234) BLOOD UREA NITROGEN 12 mg/dL 7-21 (BEAKER) (test kiex=093) CREATININE (BEAKER) (test 0.79 mg/dL 0.57-1.25 ftif=142) GLUCOSE RANDOM (BEAKER) 94 mg/dL 70-105 (test ueou=673) CALCIUM (BEAKER) (test 8.6 mg/dL 8.4-10.2 gwpw=795) EGFR (BEAKER) (test 97 mL/min/1.73 sq m ESTIMATED GFR IS NOT xdwr=6084) ACCURATE CREATININE CLEARANCE IN PREDICTING GLOMERULAR FILTRATION RATE. ESTIMATED GFR IS NOT APPLICABLE FOR DIALYSIS PATIENTS. [id number] 07:33:00 Test Item Value Reference Range Comments PROTIME (BEAKER) (test hjrg=247) 14.0 seconds 11.7-14.7 INR (BEAKER) (test ojcn=676) 1.1 <=5.9 PARTIAL THROMBOPLASTIN TIME (BEAKER) (test 31.2 seconds 22.5-36.0 wmpj=469) RECOMMENDED COUMADIN/WARFARIN INR THERAPY RANGESSTANDARD DOSE: 2.0 - 3.0 Includes: PROPHYLAXIS forvenous thrombosis, systemic embolization; TREATMENT for venous thrombosis and/or pulmonary embolus.HIGH RISK: Target INR is 2.5-3.5 for patients with mechanical heart valves.[id number] 16:00:00 Test Item Value Reference Range Comments PHOSPHORUS (BEAKER) (test qkje=430) 3.6 mg/dL 2.3-4.7 [id number] 16:00:00 Test Item Value Reference Range Comments MAGNESIUM (BEAKER) (test bupg=426) 2.0 mg/dL 1.6-2.6 BASIC METABOLIC [id number] 16:00:00 Test Item Value Reference Range Comments SODIUM (BEAKER) (test 134 meq/L 136-145 gwdu=689) POTASSIUM (BEAKER) (test 4.2 meq/L 3.5-5.1 kwqo=574) CHLORIDE (BEAKER) (test 102 meq/L 98-107 mgfp=620) CO2 (BEAKER) (test 25 meq/L 22-29 clij=779) BLOOD UREA NITROGEN 15 mg/dL 7-21 (BEAKER) (test rrjv=111) CREATININE (BEAKER) (test 0.78 mg/dL 0.57-1.25 vfko=772) GLUCOSE RANDOM (BEAKER) 111 mg/dL 70-105 (test cmmm=298) CALCIUM (BEAKER) (test 8.3 mg/dL 8.4-10.2 orxf=827) EGFR (BEAKER) (test 99 mL/min/1.73 sq m ESTIMATED GFR IS NOT uzex=2436) ACCURATE CREATININE CLEARANCE IN PREDICTING GLOMERULAR FILTRATION RATE. ESTIMATED GFR IS NOT APPLICABLE FOR DIALYSIS PATIENTS. CBC W/PLT COUNT & AUTO [id number] 15:02:00 Test Item Value Reference Range Comments WHITE BLOOD CELL COUNT (BEAKER) (test zdrz=827) 2.8 K/ L 4.0-10.0 RED BLOOD CELL COUNT (BEAKER) (test uygy=925) 3.15 M/ L 4.20-5.80 HEMOGLOBIN (BEAKER) (test nyxd=594) 8.9 GM/DL 13.0-16.8 HEMATOCRIT (BEAKER) (test fmfo=263) 27.1 % 40.0-50.0 MEAN CORPUSCULAR VOLUME (BEAKER) (test xvpf=353) 85.9 fL 82.0-98.0 MEAN CORPUSCULAR HEMOGLOBIN (BEAKER) (test 28.3 pg 27.0-33.0 vfhs=421) MEAN CORPUSCULAR HEMOGLOBIN CONC (BEAKER) (test 33.0 GM/DL 32.0-36.0 wrqw=034) RED CELL DISTRIBUTION WIDTH (BEAKER) (test 15.8 % 10.3-14.2 kmbg=665) PLATELET COUNT (BEAKER) (test zczy=485) 153 K/CU MM 150-430 MEAN PLATELET VOLUME (BEAKER) (test smgv=740) 6.5 fL 6.5-10.5 NUCLEATED RED BLOOD CELLS (BEAKER) (test 0 /100 WBC 0-0 snxe=840) NEUTROPHILS RELATIVE PERCENT (BEAKER) (test 68 % scds=525) LYMPHOCYTES RELATIVE PERCENT (BEAKER) (test 15 % itfx=293) MONOCYTES RELATIVE PERCENT (BEAKER) (test 9 % qtni=746) EOSINOPHILS RELATIVE PERCENT (BEAKER) (test 7 % nnry=175) BASOPHILS RELATIVE PERCENT (BEAKER) (test 1 % kcwj=327) NEUTROPHILS ABSOLUTE COUNT (BEAKER) (test 1.89 K/ L 1.80-8.00 tant=719) LYMPHOCYTES ABSOLUTE COUNT (BEAKER) (test 0.42 K/ L 1.48-4.50 yowd=181) MONOCYTES ABSOLUTE COUNT (BEAKER) (test 0.26 K/ L 0.00-1.30 yzpo=784) EOSINOPHILS ABSOLUTE COUNT (BEAKER) (test 0.20 K/ L 0.00-0.50 mryu=385) BASOPHILS ABSOLUTE COUNT (BEAKER) (test 0.02 K/ L 0.00-0.20 rnpa=565) (MANUAL DIFFERENTIAL)2017-01-27 15:02:00 Test Item Value Reference Range Comments TOTAL COUNTED (BEAKER) (test bbnb=5384) WBC MORPHOLOGY (BEAKER) (test qcma=629) Normal PLT MORPHOLOGY (BEAKER) (test ulzl=531) Normal RBC MORPHOLOGY (BEAKER) (test lpkl=867) Normal [id number] 07:21:00 Test Item Value Reference Range Comments PROTIME (BEAKER) (test jhrm=620) 14.0 seconds 11.7-14.7 INR (BEAKER) (test chmx=530) 1.1 <=5.9 PARTIAL THROMBOPLASTIN TIME (BEAKER) (test 35.9 seconds 22.5-36.0 girh=370) RECOMMENDED COUMADIN/WARFARIN INR THERAPY RANGESSTANDARD DOSE: 2.0 - 3.0 Includes: PROPHYLAXIS forvenous thrombosis, systemic embolization; TREATMENT for venous thrombosis and/or pulmonary embolus.HIGH RISK: Target INR is 2.5-3.5 for patients with mechanical heart valves.CALCIUM, [id number] 06:48:00 Test Item Value Reference Range Comments CALCIUM IONIZED (BEAKER) (test jiwx=793) 1.05 mmol/L 1.12-1.27 PH, BLOOD (BEAKER) (test lmwf=2246) 7.40 CBC W/PLT COUNT & AUTO [id number] 13:02:00 Test Item Value Reference Range Comments WHITE BLOOD CELL COUNT (BEAKER) (test akwt=290) 2.9 K/ L 4.0-10.0 RED BLOOD CELL COUNT (BEAKER) (test xidp=382) 3.06 M/ L 4.20-5.80 HEMOGLOBIN (BEAKER) (test pvii=035) 8.8 GM/DL 13.0-16.8 HEMATOCRIT (BEAKER) (test gnfw=551) 26.4 % 40.0-50.0 MEAN CORPUSCULAR VOLUME (BEAKER) (test nndj=717) 86.3 fL 82.0-98.0 MEAN CORPUSCULAR HEMOGLOBIN (BEAKER) (test 28.6 pg 27.0-33.0 jluk=404) MEAN CORPUSCULAR HEMOGLOBIN CONC (BEAKER) (test 33.2 GM/DL 32.0-36.0 ywrr=383) RED CELL DISTRIBUTION WIDTH (BEAKER) (test 14.4 % 10.3-14.2 nxbn=111) PLATELET COUNT (BEAKER) (test fdzw=464) 145 K/CU MM 150-430 MEAN PLATELET VOLUME (BEAKER) (test khrt=152) 6.4 fL 6.5-10.5 NUCLEATED RED BLOOD CELLS (BEAKER) (test 0 /100 WBC 0-0 izkr=198) NEUTROPHILS RELATIVE PERCENT (BEAKER) (test 67 % nqlr=201) LYMPHOCYTES RELATIVE PERCENT (BEAKER) (test 17 % lcgn=232) MONOCYTES RELATIVE PERCENT (BEAKER) (test 11 % bxqu=468) EOSINOPHILS RELATIVE PERCENT (BEAKER) (test 5 % pgqv=867) BASOPHILS RELATIVE PERCENT (BEAKER) (test 0 % gsqx=572) NEUTROPHILS ABSOLUTE COUNT (BEAKER) (test 1.98 K/ L 1.80-8.00 pqsj=180) LYMPHOCYTES ABSOLUTE COUNT (BEAKER) (test 0.50 K/ L 1.48-4.50 anbx=765) MONOCYTES ABSOLUTE COUNT (BEAKER) (test 0.31 K/ L 0.00-1.30 jijo=886) EOSINOPHILS ABSOLUTE COUNT (BEAKER) (test 0.15 K/ L 0.00-0.50 plio=143) BASOPHILS ABSOLUTE COUNT (BEAKER) (test 0.00 K/ L 0.00-0.20 wuls=326) (MANUAL DIFFERENTIAL)2017-01-26 13:02:00 Test Item Value Reference Range Comments TOTAL COUNTED (BEAKER) (test ozwj=4535) WBC MORPHOLOGY (BEAKER) (test fmfx=058) Normal PLT MORPHOLOGY (BEAKER) (test ouwy=432) Normal ANISOCYTOSIS (BEAKER) (test huay=878) 1+ few POLYCHROMATOPHILLIC RBCS(BEAKER) (test ikkb=616) 1+ few [id number] 07:15:00 Test Item Value Reference Range Comments PHOSPHORUS (BEAKER) (test qwbw=864) 3.2 mg/dL 2.3-4.7 [id number] 07:15:00 Test Item Value Reference Range Comments MAGNESIUM (BEAKER) (test crzw=607) 2.1 mg/dL 1.6-2.6 BASIC METABOLIC [id number] 07:15:00 Test Item Value Reference Range Comments SODIUM (BEAKER) (test 132 meq/L 136-145 kqsk=811) POTASSIUM (BEAKER) (test 4.3 meq/L 3.5-5.1 vuym=401) CHLORIDE (BEAKER) (test 101 meq/L 98-107 rfum=396) CO2 (BEAKER) (test 25 meq/L 22-29 aqcb=869) BLOOD UREA NITROGEN 15 mg/dL 7-21 (BEAKER) (test xhzk=474) CREATININE (BEAKER) (test 0.78 mg/dL 0.57-1.25 gnts=670) GLUCOSE RANDOM (BEAKER) 95 mg/dL 70-105 (test dggx=449) CALCIUM (BEAKER) (test 8.1 mg/dL 8.4-10.2 vrcw=819) EGFR (BEAKER) (test 99 mL/min/1.73 sq m ESTIMATED GFR IS NOT jsuz=2552) ACCURATE CREATININE CLEARANCE IN PREDICTING GLOMERULAR FILTRATION RATE. ESTIMATED GFR IS NOT APPLICABLE FOR DIALYSIS PATIENTS. CALCIUM, [id number] 06:56:00 Test Item Value Reference Range Comments CALCIUM IONIZED (BEAKER) (test iael=462) 1.00 mmol/L 1.12-1.27 PH, BLOOD (BEAKER) (test icjb=1143) 7.39 [id number] 06:45:00 Test Item Value Reference Range Comments PROTIME (BEAKER) (test lvgp=077) 14.6 seconds 11.7-14.7 INR (BEAKER) (test vygf=949) 1.2 <=5.9 PARTIAL THROMBOPLASTIN TIME (BEAKER) (test 31.6 seconds 22.5-36.0 gsan=377) RECOMMENDED COUMADIN/WARFARIN INR THERAPY RANGESSTANDARD DOSE: 2.0 - 3.0 Includes: PROPHYLAXIS forvenous thrombosis, systemic embolization; TREATMENT for venous thrombosis and/or pulmonary embolus.HIGH RISK: Target INR is 2.5-3.5 for patients with mechanical heart valves.CBC W/PLT COUNT & AUTO [id number] 07:23:00 Test Item Value Reference Range Comments WHITE BLOOD CELL COUNT (BEAKER) (test scaj=490) 3.8 K/ L 4.0-10.0 RED BLOOD CELL COUNT (BEAKER) (test lwsx=532) 3.10 M/ L 4.20-5.80 HEMOGLOBIN (BEAKER) (test fpwo=597) 8.8 GM/DL 13.0-16.8 HEMATOCRIT (BEAKER) (test bwjq=740) 26.7 % 40.0-50.0 MEAN CORPUSCULAR VOLUME (BEAKER) (test omdb=182) 85.9 fL 82.0-98.0 MEAN CORPUSCULAR HEMOGLOBIN (BEAKER) (test 28.2 pg 27.0-33.0 ipdd=829) MEAN CORPUSCULAR HEMOGLOBIN CONC (BEAKER) (test 32.9 GM/DL 32.0-36.0 luto=107) RED CELL DISTRIBUTION WIDTH (BEAKER) (test 15.8 % 10.3-14.2 omzs=134) PLATELET COUNT (BEAKER) (test ixlw=343) 134 K/CU MM 150-430 MEAN PLATELET VOLUME (BEAKER) (test vpuv=658) 6.4 fL 6.5-10.5 NUCLEATED RED BLOOD CELLS (BEAKER) (test 0 /100 WBC 0-0 mfuf=638) NEUTROPHILS RELATIVE PERCENT (BEAKER) (test 75 % zewo=517) LYMPHOCYTES RELATIVE PERCENT (BEAKER) (test 12 % kkjk=788) MONOCYTES RELATIVE PERCENT (BEAKER) (test 9 % iqoe=346) EOSINOPHILS RELATIVE PERCENT (BEAKER) (test 3 % rpzl=602) BASOPHILS RELATIVE PERCENT (BEAKER) (test 1 % loap=117) NEUTROPHILS ABSOLUTE COUNT (BEAKER) (test 2.87 K/ L 1.80-8.00 ufha=691) LYMPHOCYTES ABSOLUTE COUNT (BEAKER) (test 0.46 K/ L 1.48-4.50 rrui=602) MONOCYTES ABSOLUTE COUNT (BEAKER) (test 0.36 K/ L 0.00-1.30 qxsg=592) EOSINOPHILS ABSOLUTE COUNT (BEAKER) (test 0.13 K/ L 0.00-0.50 ysmg=464) BASOPHILS ABSOLUTE COUNT (BEAKER) (test 0.02 K/ L 0.00-0.20 wgrs=988) 0.000.500.000.000.000.000.000.00(MANUAL DIFFERENTIAL)2017-01-25 07:23:00 Test Item Value Reference Range Comments TOTAL COUNTED (BEAKER) (test zgfh=8109) WBC MORPHOLOGY (BEAKER) (test coov=344) Normal PLT MORPHOLOGY (BEAKER) (test weph=345) Normal POLYCHROMATOPHILLIC RBCS(BEAKER) (test slqn=162) 1+ few BASIC METABOLIC [id number] 04:52:00 Test Item Value Reference Range Comments SODIUM (BEAKER) (test 131 meq/L 136-145 mkjj=419) POTASSIUM (BEAKER) (test 4.2 meq/L 3.5-5.1 cgpb=348) CHLORIDE (BEAKER) (test 100 meq/L 98-107 uhrx=538) CO2 (BEAKER) (test 23 meq/L 22-29 adxk=688) BLOOD UREA NITROGEN 15 mg/dL 7-21 (BEAKER) (test znjd=761) CREATININE (BEAKER) (test 0.76 mg/dL 0.57-1.25 zczm=977) GLUCOSE RANDOM (BEAKER) 103 mg/dL 70-105 (test nivt=543) CALCIUM (BEAKER) (test 8.3 mg/dL 8.4-10.2 quxd=028) EGFR (BEAKER) (test 102 mL/min/1.73 sq m ESTIMATED GFR IS NOT lsab=6905) ACCURATE CREATININE CLEARANCE IN PREDICTING GLOMERULAR FILTRATION RATE. ESTIMATED GFR IS NOT APPLICABLE FOR DIALYSIS PATIENTS. [id number] 04:04:00 Test Item Value Reference Range Comments PROTIME (BEAKER) (test ykaw=309) 13.8 seconds 11.7-14.7 INR (BEAKER) (test todu=197) 1.1 <=5.9 PARTIAL THROMBOPLASTIN TIME (BEAKER) (test 29.3 seconds 22.5-36.0 wwtf=465) RECOMMENDED COUMADIN/WARFARIN INR THERAPY RANGESSTANDARD DOSE: 2.0 - 3.0 Includes: PROPHYLAXIS forvenous thrombosis, systemic embolization; TREATMENT for venous thrombosis and/or pulmonary embolus.HIGH RISK: Target INR is 2.5-3.5 for patients with mechanical heart valves.CBC W/PLT COUNT & AUTO [id number] 06:44:00 Test Item Value Reference Range Comments WHITE BLOOD CELL COUNT (BEAKER) (test urec=608) 3.8 K/ L 4.0-10.0 RED BLOOD CELL COUNT (BEAKER) (test ukux=181) 3.13 M/ L 4.20-5.80 HEMOGLOBIN (BEAKER) (test uxve=064) 8.9 GM/DL 13.0-16.8 HEMATOCRIT (BEAKER) (test xfwc=670) 27.2 % 40.0-50.0 MEAN CORPUSCULAR VOLUME (BEAKER) (test esbf=915) 86.7 fL 82.0-98.0 MEAN CORPUSCULAR HEMOGLOBIN (BEAKER) (test 28.3 pg 27.0-33.0 pbzv=243) MEAN CORPUSCULAR HEMOGLOBIN CONC (BEAKER) (test 32.6 GM/DL 32.0-36.0 bqeh=896) RED CELL DISTRIBUTION WIDTH (BEAKER) (test 14.4 % 10.3-14.2 axrv=442) PLATELET COUNT (BEAKER) (test zesl=742) 135 K/CU MM 150-430 MEAN PLATELET VOLUME (BEAKER) (test ovky=775) 6.5 fL 6.5-10.5 NUCLEATED RED BLOOD CELLS (BEAKER) (test 0 /100 WBC 0-0 bzin=997) NEUTROPHILS RELATIVE PERCENT (BEAKER) (test 75 % xtyj=223) LYMPHOCYTES RELATIVE PERCENT (BEAKER) (test 13 % fswx=476) MONOCYTES RELATIVE PERCENT (BEAKER) (test 9 % btbg=343) EOSINOPHILS RELATIVE PERCENT (BEAKER) (test 4 % jkny=769) BASOPHILS RELATIVE PERCENT (BEAKER) (test 0 % znes=197) NEUTROPHILS ABSOLUTE COUNT (BEAKER) (test 2.84 K/ L 1.80-8.00 gndo=347) LYMPHOCYTES ABSOLUTE COUNT (BEAKER) (test 0.48 K/ L 1.48-4.50 koqa=595) MONOCYTES ABSOLUTE COUNT (BEAKER) (test 0.33 K/ L 0.00-1.30 fyfj=723) EOSINOPHILS ABSOLUTE COUNT (BEAKER) (test 0.14 K/ L 0.00-0.50 tfvp=013) BASOPHILS ABSOLUTE COUNT (BEAKER) (test 0.00 K/ L 0.00-0.20 nycf=468) [id number] 06:23:00 Test Item Value Reference Range Comments PHOSPHORUS (BEAKER) (test rtrd=668) 3.5 mg/dL 2.3-4.7 [id number] 06:23:00 Test Item Value Reference Range Comments MAGNESIUM (BEAKER) (test uibc=394) 2.1 mg/dL 1.6-2.6 BASIC METABOLIC [id number] 06:23:00 Test Item Value Reference Range Comments SODIUM (BEAKER) (test 132 meq/L 136-145 bxys=624) POTASSIUM (BEAKER) (test 4.3 meq/L 3.5-5.1 wyom=633) CHLORIDE (BEAKER) (test 100 meq/L 98-107 hxmd=514) CO2 (BEAKER) (test 25 meq/L 22-29 codg=707) BLOOD UREA NITROGEN 17 mg/dL 7-21 (BEAKER) (test hujq=159) CREATININE (BEAKER) (test 0.84 mg/dL 0.57-1.25 dhkm=008) GLUCOSE RANDOM (BEAKER) 102 mg/dL 70-105 (test zock=358) CALCIUM (BEAKER) (test 8.3 mg/dL 8.4-10.2 grpa=925) EGFR (BEAKER) (test 91 mL/min/1.73 sq m ESTIMATED GFR IS NOT bdcu=0245) ACCURATE CREATININE CLEARANCE IN PREDICTING GLOMERULAR FILTRATION RATE. ESTIMATED GFR IS NOT APPLICABLE FOR DIALYSIS PATIENTS. PT/[id number] 05:42:00 Test Item Value Reference Range Comments PROTIME (BEAKER) (test nkwc=172) 14.0 seconds 11.7-14.7 INR (BEAKER) (test zgfh=148) 1.1 <=5.9 PARTIAL THROMBOPLASTIN TIME (BEAKER) (test 30.1 seconds 22.5-36.0 omty=514) RECOMMENDED COUMADIN/WARFARIN INR THERAPY RANGESSTANDARD DOSE: 2.0 - 3.0 Includes: PROPHYLAXIS forvenous thrombosis, systemic embolization; TREATMENT for venous thrombosis and/or pulmonary embolus.HIGH RISK: Target INR is 2.5-3.5 for patients with mechanical heart valves.CALCIUM, [id number] 05:34:00 Test Item Value Reference Range Comments CALCIUM IONIZED (BEAKER) (test urjw=930) 1.08 mmol/L 1.12-1.27 PH, BLOOD (BEAKER) (test scwa=2192) 7.38 CBC W/PLT COUNT & AUTO [id number] 05:27:00 Test Item Value Reference Range Comments WHITE BLOOD CELL COUNT (BEAKER) (test tzne=454) 4.9 K/ L 4.0-10.0 RED BLOOD CELL COUNT (BEAKER) (test rscq=634) 3.22 M/ L 4.20-5.80 HEMOGLOBIN (BEAKER) (test wiqh=082) 8.9 GM/DL 13.0-16.8 HEMATOCRIT (BEAKER) (test pojp=898) 27.9 % 40.0-50.0 MEAN CORPUSCULAR VOLUME (BEAKER) (test cttn=497) 86.8 fL 82.0-98.0 MEAN CORPUSCULAR HEMOGLOBIN (BEAKER) (test 27.6 pg 27.0-33.0 axnx=360) MEAN CORPUSCULAR HEMOGLOBIN CONC (BEAKER) (test 31.8 GM/DL 32.0-36.0 lvbo=668) RED CELL DISTRIBUTION WIDTH (BEAKER) (test 14.5 % 10.3-14.2 fkhn=984) PLATELET COUNT (BEAKER) (test jzeq=574) 137 K/CU MM 150-430 MEAN PLATELET VOLUME (BEAKER) (test efvn=199) 6.6 fL 6.5-10.5 NUCLEATED RED BLOOD CELLS (BEAKER) (test 0 /100 WBC 0-0 mwjz=159) NEUTROPHILS RELATIVE PERCENT (BEAKER) (test 77 % wyrw=153) LYMPHOCYTES RELATIVE PERCENT (BEAKER) (test 13 % xiwm=111) MONOCYTES RELATIVE PERCENT (BEAKER) (test 8 % yrwb=301) EOSINOPHILS RELATIVE PERCENT (BEAKER) (test 2 % ayqx=910) BASOPHILS RELATIVE PERCENT (BEAKER) (test 0 % zhkt=983) NEUTROPHILS ABSOLUTE COUNT (BEAKER) (test 3.77 K/ L 1.80-8.00 wgpg=027) LYMPHOCYTES ABSOLUTE COUNT (BEAKER) (test 0.62 K/ L 1.48-4.50 ukzg=188) MONOCYTES ABSOLUTE COUNT (BEAKER) (test 0.39 K/ L 0.00-1.30 gjaw=356) EOSINOPHILS ABSOLUTE COUNT (BEAKER) (test 0.12 K/ L 0.00-0.50 fgzt=016) BASOPHILS ABSOLUTE COUNT (BEAKER) (test 0.01 K/ L 0.00-0.20 ebiq=865) 0.00CALCIUM, [id number] 05:25:00 Test Item Value Reference Range Comments CALCIUM IONIZED (BEAKER) (test ocxq=831) 1.06 mmol/L 1.12-1.27 PH, BLOOD (BEAKER) (test wkpg=7812) 7.42 [id number] 05:10:00 Test Item Value Reference Range Comments PHOSPHORUS (BEAKER) (test rsjr=832) 3.8 mg/dL 2.3-4.7 [id number] 05:10:00 Test Item Value Reference Range Comments MAGNESIUM (BEAKER) (test ohnx=724) 2.0 mg/dL 1.6-2.6 BASIC METABOLIC [id number] 05:10:00 Test Item Value Reference Range Comments SODIUM (BEAKER) (test 129 meq/L 136-145 vmal=122) POTASSIUM (BEAKER) (test 4.6 meq/L 3.5-5.1 jjgi=818) CHLORIDE (BEAKER) (test 99 meq/L 98-107 zdgf=372) CO2 (BEAKER) (test 20 meq/L 22-29 wtbe=998) BLOOD UREA NITROGEN 19 mg/dL 7-21 (BEAKER) (test yqnn=800) CREATININE (BEAKER) (test 0.84 mg/dL 0.57-1.25 xcht=579) GLUCOSE RANDOM (BEAKER) 103 mg/dL 70-105 (test xymn=085) CALCIUM (BEAKER) (test 8.6 mg/dL 8.4-10.2 vglv=468) EGFR (BEAKER) (test 91 mL/min/1.73 sq m ESTIMATED GFR IS NOT ubgm=6362) ACCURATE CREATININE CLEARANCE IN PREDICTING GLOMERULAR FILTRATION RATE. ESTIMATED GFR IS NOT APPLICABLE FOR DIALYSIS PATIENTS. [id number] 05:03:00 Test Item Value Reference Range Comments PROTIME (BEAKER) (test eqzv=962) 15.7 seconds 11.7-14.7 INR (BEAKER) (test yjpy=990) 1.3 <=5.9 PARTIAL THROMBOPLASTIN TIME (BEAKER) (test 33.7 seconds 22.5-36.0 tmjv=377) RECOMMENDED COUMADIN/WARFARIN INR THERAPY RANGESSTANDARD DOSE: 2.0 - 3.0 Includes: PROPHYLAXIS forvenous thrombosis, systemic embolization; TREATMENT for venous thrombosis and/or pulmonary embolus.HIGH RISK: Target INR is 2.5-3.5 for patients with mechanical heart valves.CALCIUM, [id number] 06:19:00 Test Item Value Reference Range Comments CALCIUM IONIZED (BEAKER) (test jojo=217) 0.95 mmol/L 1.12-1.27 PH, BLOOD (BEAKER) (test efrc=6828) 7.50 CBC W/PLT COUNT & AUTO [id number] 06:16:00 Test Item Value Reference Range Comments WHITE BLOOD CELL COUNT (BEAKER) (test jlgu=045) 6.3 K/ L 4.0-10.0 RED BLOOD CELL COUNT (BEAKER) (test dqgb=574) 3.40 M/ L 4.20-5.80 HEMOGLOBIN (BEAKER) (test rbgn=772) 9.6 GM/DL 13.0-16.8 HEMATOCRIT (BEAKER) (test ppjz=105) 29.5 % 40.0-50.0 MEAN CORPUSCULAR VOLUME (BEAKER) (test zzun=534) 86.8 fL 82.0-98.0 MEAN CORPUSCULAR HEMOGLOBIN (BEAKER) (test 28.3 pg 27.0-33.0 edgo=327) MEAN CORPUSCULAR HEMOGLOBIN CONC (BEAKER) (test 32.6 GM/DL 32.0-36.0 vvjj=378) RED CELL DISTRIBUTION WIDTH (BEAKER) (test 14.2 % 10.3-14.2 fisk=269) PLATELET COUNT (BEAKER) (test jvsw=763) 135 K/CU MM 150-430 MEAN PLATELET VOLUME (BEAKER) (test znxo=089) 6.7 fL 6.5-10.5 NUCLEATED RED BLOOD CELLS (BEAKER) (test 0 /100 WBC 0-0 vsfg=836) NEUTROPHILS RELATIVE PERCENT (BEAKER) (test 81 % pbah=270) LYMPHOCYTES RELATIVE PERCENT (BEAKER) (test 8 % zmlm=255) MONOCYTES RELATIVE PERCENT (BEAKER) (test 8 % xrnj=029) EOSINOPHILS RELATIVE PERCENT (BEAKER) (test 2 % wtvp=026) BASOPHILS RELATIVE PERCENT (BEAKER) (test 0 % aqlo=601) NEUTROPHILS ABSOLUTE COUNT (BEAKER) (test 5.14 K/ L 1.80-8.00 vfxy=633) LYMPHOCYTES ABSOLUTE COUNT (BEAKER) (test 0.54 K/ L 1.48-4.50 yocj=960) MONOCYTES ABSOLUTE COUNT (BEAKER) (test 0.51 K/ L 0.00-1.30 hgmy=729) EOSINOPHILS ABSOLUTE COUNT (BEAKER) (test 0.13 K/ L 0.00-0.50 yxpr=261) BASOPHILS ABSOLUTE COUNT (BEAKER) (test 0.03 K/ L 0.00-0.20 kitf=734) [id number] 06:00:00 Test Item Value Reference Range Comments PHOSPHORUS (BEAKER) (test wzey=047) 3.6 mg/dL 2.3-4.7 [id number] 06:00:00 Test Item Value Reference Range Comments MAGNESIUM (BEAKER) (test exzn=212) 2.2 mg/dL 1.6-2.6 BASIC METABOLIC [id number] 06:00:00 Test Item Value Reference Range Comments SODIUM (BEAKER) (test 129 meq/L 136-145 wocv=423) POTASSIUM (BEAKER) (test 4.7 meq/L 3.5-5.1 lvvg=484) CHLORIDE (BEAKER) (test 98 meq/L 98-107 yubg=352) CO2 (BEAKER) (test 21 meq/L 22-29 uhlm=311) BLOOD UREA NITROGEN 20 mg/dL 7-21 (BEAKER) (test pjub=584) CREATININE (BEAKER) (test 0.89 mg/dL 0.57-1.25 sxco=067) GLUCOSE RANDOM (BEAKER) 114 mg/dL 70-105 (test fmhl=869) CALCIUM (BEAKER) (test 8.5 mg/dL 8.4-10.2 fxvq=308) EGFR (BEAKER) (test 85 mL/min/1.73 sq m ESTIMATED GFR IS NOT atdz=1710) ACCURATE CREATININE CLEARANCE IN PREDICTING GLOMERULAR FILTRATION RATE. ESTIMATED GFR IS NOT APPLICABLE FOR DIALYSIS PATIENTS. PT/[id number] 05:49:00 Test Item Value Reference Range Comments PROTIME (BEAKER) (test laqw=928) 14.6 seconds 11.7-14.7 INR (BEAKER) (test yihr=214) 1.2 <=5.9 PARTIAL THROMBOPLASTIN TIME (BEAKER) (test 30.8 seconds 22.5-36.0 jemt=446) RECOMMENDED COUMADIN/WARFARIN INR THERAPY RANGESSTANDARD DOSE: 2.0 - 3.0 Includes: PROPHYLAXIS forvenous thrombosis, systemic embolization; TREATMENT for venous thrombosis and/or pulmonary embolus.HIGH RISK: Target INR is 2.5-3.5 for patients with mechanical heart valves.[id number] 13:57:00 Test Item Value Reference Range Comments FIBRINOGEN LEVEL (BEAKER) (test ehcp=053) 347 mg/dl 225-434 CBC W/PLT COUNT & AUTO [id number] 07:20:00 Test Item Value Reference Range Comments WHITE BLOOD CELL COUNT (BEAKER) (test ebzo=284) 6.3 K/ L 4.0-10.0 RED BLOOD CELL COUNT (BEAKER) (test qdmr=600) 3.41 M/ L 4.20-5.80 HEMOGLOBIN (BEAKER) (test gguo=827) 9.9 GM/DL 13.0-16.8 HEMATOCRIT (BEAKER) (test phww=845) 29.5 % 40.0-50.0 MEAN CORPUSCULAR VOLUME (BEAKER) (test sbou=369) 86.4 fL 82.0-98.0 MEAN CORPUSCULAR HEMOGLOBIN (BEAKER) (test 29.1 pg 27.0-33.0 indt=101) MEAN CORPUSCULAR HEMOGLOBIN CONC (BEAKER) (test 33.6 GM/DL 32.0-36.0 ygwb=715) RED CELL DISTRIBUTION WIDTH (BEAKER) (test 15.7 % 10.3-14.2 qfqt=472) PLATELET COUNT (BEAKER) (test ducl=129) 126 K/CU MM 150-430 MEAN PLATELET VOLUME (BEAKER) (test vgqt=237) 6.8 fL 6.5-10.5 NUCLEATED RED BLOOD CELLS (BEAKER) (test 0 /100 WBC 0-0 kctl=660) NEUTROPHILS RELATIVE PERCENT (BEAKER) (test 82 % raap=986) LYMPHOCYTES RELATIVE PERCENT (BEAKER) (test 8 % crjx=311) MONOCYTES RELATIVE PERCENT (BEAKER) (test 8 % zgjh=693) EOSINOPHILS RELATIVE PERCENT (BEAKER) (test 2 % qczb=455) BASOPHILS RELATIVE PERCENT (BEAKER) (test 0 % ulrn=711) NEUTROPHILS ABSOLUTE COUNT (BEAKER) (test 5.22 K/ L 1.80-8.00 gnvf=428) LYMPHOCYTES ABSOLUTE COUNT (BEAKER) (test 0.53 K/ L 1.48-4.50 zxsf=473) MONOCYTES ABSOLUTE COUNT (BEAKER) (test 0.50 K/ L 0.00-1.30 iqdo=633) EOSINOPHILS ABSOLUTE COUNT (BEAKER) (test 0.10 K/ L 0.00-0.50 thci=484) BASOPHILS ABSOLUTE COUNT (BEAKER) (test 0.01 K/ L 0.00-0.20 eouq=571) 0.00BASI METABOLIC [id number] 06:11:00 Test Item Value Reference Range Comments SODIUM (BEAKER) (test 130 meq/L 136-145 bptf=379) POTASSIUM (BEAKER) (test 4.8 meq/L 3.5-5.1 eeya=819) CHLORIDE (BEAKER) (test 96 meq/L 98-107 dnll=812) CO2 (BEAKER) (test 25 meq/L 22-29 qbuz=061) BLOOD UREA NITROGEN 26 mg/dL 7-21 (BEAKER) (test btuq=926) CREATININE (BEAKER) (test 0.92 mg/dL 0.57-1.25 vzuc=748) GLUCOSE RANDOM (BEAKER) 109 mg/dL 70-105 (test jhpx=259) CALCIUM (BEAKER) (test 8.8 mg/dL 8.4-10.2 gnac=941) EGFR (BEAKER) (test 82 mL/min/1.73 sq m ESTIMATED GFR IS NOT gqsp=9248) ACCURATE CREATININE CLEARANCE IN PREDICTING GLOMERULAR FILTRATION RATE. ESTIMATED GFR IS NOT APPLICABLE FOR DIALYSIS PATIENTS. [id number] 06:01:00 Test Item Value Reference Range Comments PROTIME (BEAKER) (test hhmq=165) 15.4 seconds 11.7-14.7 INR (BEAKER) (test cgsh=770) 1.2 <=5.9 PARTIAL THROMBOPLASTIN TIME (BEAKER) (test 35.3 seconds 22.5-36.0 bnct=336) RECOMMENDED COUMADIN/WARFARIN INR THERAPY RANGESSTANDARD DOSE: 2.0 - 3.0 Includes: PROPHYLAXIS forvenous thrombosis, systemic embolization; TREATMENT for venous thrombosis and/or pulmonary embolus.HIGH RISK: Target INR is 2.5-3.5 for patients with mechanical heart valves.CBC W/PLT COUNT & AUTO [id number] 07:13:00 Test Item Value Reference Range Comments WHITE BLOOD CELL COUNT (BEAKER) (test gxkh=290) 6.9 K/ L 4.0-10.0 RED BLOOD CELL COUNT (BEAKER) (test psde=779) 3.46 M/ L 4.20-5.80 HEMOGLOBIN (BEAKER) (test gicg=478) 9.9 GM/DL 13.0-16.8 HEMATOCRIT (BEAKER) (test vfxk=854) 30.0 % 40.0-50.0 MEAN CORPUSCULAR VOLUME (BEAKER) (test musw=645) 86.6 fL 82.0-98.0 MEAN CORPUSCULAR HEMOGLOBIN (BEAKER) (test 28.5 pg 27.0-33.0 fuyl=025) MEAN CORPUSCULAR HEMOGLOBIN CONC (BEAKER) (test 32.9 GM/DL 32.0-36.0 iikc=024) RED CELL DISTRIBUTION WIDTH (BEAKER) (test 15.2 % 10.3-14.2 hhhy=690) PLATELET COUNT (BEAKER) (test twyj=479) 138 K/CU MM 150-430 MEAN PLATELET VOLUME (BEAKER) (test fzga=457) 6.6 fL 6.5-10.5 NUCLEATED RED BLOOD CELLS (BEAKER) (test 0 /100 WBC 0-0 fogc=689) NEUTROPHILS RELATIVE PERCENT (BEAKER) (test 86 % dped=693) LYMPHOCYTES RELATIVE PERCENT (BEAKER) (test 5 % zlqd=638) MONOCYTES RELATIVE PERCENT (BEAKER) (test 7 % sacv=774) EOSINOPHILS RELATIVE PERCENT (BEAKER) (test 1 % imoi=246) BASOPHILS RELATIVE PERCENT (BEAKER) (test 0 % qpws=993) NEUTROPHILS ABSOLUTE COUNT (BEAKER) (test 5.95 K/ L 1.80-8.00 lfaj=292) LYMPHOCYTES ABSOLUTE COUNT (BEAKER) (test 0.36 K/ L 1.48-4.50 xntt=965) MONOCYTES ABSOLUTE COUNT (BEAKER) (test 0.50 K/ L 0.00-1.30 bdvi=958) EOSINOPHILS ABSOLUTE COUNT (BEAKER) (test 0.10 K/ L 0.00-0.50 jlzr=554) BASOPHILS ABSOLUTE COUNT (BEAKER) (test 0.03 K/ L 0.00-0.20 dwpa=106) 0.00PT/[id number] 06:09:00 Test Item Value Reference Range Comments PROTIME (BEAKER) (test lmfs=429) 16.3 seconds 11.7-14.7 INR (BEAKER) (test jjmv=938) 1.3 <=5.9 PARTIAL THROMBOPLASTIN TIME (BEAKER) (test 37.7 seconds 22.5-36.0 yttb=359) RECOMMENDED COUMADIN/WARFARIN INR THERAPY RANGESSTANDARD DOSE: 2.0 - 3.0 Includes: PROPHYLAXIS forvenous thrombosis, systemic embolization; TREATMENT for venous thrombosis and/or pulmonary embolus.HIGH RISK: Target INR is 2.5-3.5 for patients with mechanical heart valves.BASIC METABOLIC [id number] 06:08: 00 Test Item Value Reference Range Comments SODIUM (BEAKER) (test 131 meq/L 136-145 iuen=868) POTASSIUM (BEAKER) (test 4.7 meq/L 3.5-5.1 ycsw=315) CHLORIDE (BEAKER) (test 99 meq/L 98-107 tqtm=029) CO2 (BEAKER) (test 20 meq/L 22-29 tixf=745) BLOOD UREA NITROGEN 21 mg/dL 7-21 (BEAKER) (test xver=564) CREATININE (BEAKER) (test 0.91 mg/dL 0.57-1.25 noic=201) GLUCOSE RANDOM (BEAKER) 133 mg/dL 70-105 (test npsl=875) CALCIUM (BEAKER) (test 8.8 mg/dL 8.4-10.2 sbhy=914) EGFR (BEAKER) (test 83 mL/min/1.73 sq m ESTIMATED GFR IS NOT dabx=1783) ACCURATE CREATININE CLEARANCE IN PREDICTING GLOMERULAR FILTRATION RATE. ESTIMATED GFR IS NOT APPLICABLE FOR DIALYSIS PATIENTS. CBC W/PLT COUNT & AUTO [id number] 04:02:00 Test Item Value Reference Range Comments WHITE BLOOD CELL COUNT (BEAKER) (test wkyl=140) 4.5 K/ L 4.0-10.0 RED BLOOD CELL COUNT (BEAKER) (test vndu=875) 3.14 M/ L 4.20-5.80 HEMOGLOBIN (BEAKER) (test uyxl=870) 9.0 GM/DL 13.0-16.8 HEMATOCRIT (BEAKER) (test lfav=069) 27.3 % 40.0-50.0 MEAN CORPUSCULAR VOLUME (BEAKER) (test zefu=626) 86.9 fL 82.0-98.0 MEAN CORPUSCULAR HEMOGLOBIN (BEAKER) (test 28.5 pg 27.0-33.0 vwal=654) MEAN CORPUSCULAR HEMOGLOBIN CONC (BEAKER) (test 32.8 GM/DL 32.0-36.0 qfqf=749) RED CELL DISTRIBUTION WIDTH (BEAKER) (test 14.7 % 10.3-14.2 knxq=877) PLATELET COUNT (BEAKER) (test ymgq=030) 195 K/CU MM 150-430 MEAN PLATELET VOLUME (BEAKER) (test qlys=142) 6.0 fL 6.5-10.5 NUCLEATED RED BLOOD CELLS (BEAKER) (test 0 /100 WBC 0-0 krpf=499) NEUTROPHILS RELATIVE PERCENT (BEAKER) (test 75 % xtze=972) LYMPHOCYTES RELATIVE PERCENT (BEAKER) (test 11 % sdlo=951) MONOCYTES RELATIVE PERCENT (BEAKER) (test 8 % fdlp=028) EOSINOPHILS RELATIVE PERCENT (BEAKER) (test 6 % egta=762) BASOPHILS RELATIVE PERCENT (BEAKER) (test 1 % rjmk=184) NEUTROPHILS ABSOLUTE COUNT (BEAKER) (test 3.34 K/ L 1.80-8.00 ncqz=206) LYMPHOCYTES ABSOLUTE COUNT (BEAKER) (test 0.49 K/ L 1.48-4.50 rspy=574) MONOCYTES ABSOLUTE COUNT (BEAKER) (test 0.36 K/ L 0.00-1.30 yxss=840) EOSINOPHILS ABSOLUTE COUNT (BEAKER) (test 0.26 K/ L 0.00-0.50 szly=655) BASOPHILS ABSOLUTE COUNT (BEAKER) (test 0.03 K/ L 0.00-0.20 mjhx=803) 0.00BASIC METABOLIC [id number] 04:01:00 Test Item Value Reference Range Comments SODIUM (BEAKER) (test 133 meq/L 136-145 gctl=970) POTASSIUM (BEAKER) (test 4.5 meq/L 3.5-5.1 dweg=634) CHLORIDE (BEAKER) (test 101 meq/L 98-107 mgph=376) CO2 (BEAKER) (test 23 meq/L 22-29 ddpm=237) BLOOD UREA NITROGEN 15 mg/dL 7-21 (BEAKER) (test zinj=599) CREATININE (BEAKER) (test 0.76 mg/dL 0.57-1.25 jevl=190) GLUCOSE RANDOM (BEAKER) 107 mg/dL 70-105 (test ffjt=626) CALCIUM (BEAKER) (test 8.4 mg/dL 8.4-10.2 emec=441) EGFR (BEAKER) (test 102 mL/min/1.73 sq m ESTIMATED GFR IS NOT iast=4249) ACCURATE CREATININE CLEARANCE IN PREDICTING GLOMERULAR FILTRATION RATE. ESTIMATED GFR IS NOT APPLICABLE FOR DIALYSIS PATIENTS. [id number] 03:47:00 Test Item Value Reference Range Comments PROTIME (BEAKER) (test sceb=592) 14.4 seconds 11.7-14.7 INR (BEAKER) (test ouki=652) 1.1 <=5.9 PARTIAL THROMBOPLASTIN TIME (BEAKER) (test 31.9 seconds 22.5-36.0 zaiz=568) RECOMMENDED COUMADIN/WARFARIN INR THERAPY RANGESSTANDARD DOSE: 2.0 - 3.0 Includes: PROPHYLAXIS forvenous thrombosis, systemic embolization; TREATMENT for venous thrombosis and/or pulmonary embolus.HIGH RISK: Target INR is 2.5-3.5 for patients with mechanical heart valves.OCCULT BLOOD, [id number] 15:31:00 Test Item Value Reference Range Comments FECAL OCCULT BLOOD (BEAKER) (test elte=860) Negative Negative [id number] 13:55:00 Test Item Value Reference Range Comments D-DIMER QUANTITATIVE (BEAKER) (test yrtk=682) 7.42 MG/L FEU <0.50 Intended Use: The D-Dimer Assay can be used to aid in the diagnosis of Deep Vein Thrombosis (DVT) and Pulmonary Embolism Disease (PED).In patients with low pre-test probability, various studies concerning STA Liatest D-dimer test have reported that with a cutoff value of 0.50 MG/L FEU, the Negative Predictive Value (NPV) regarding the exclusion of thrombosis is within 95-100% range.[id number] 13:47:00 Test Item Value Reference Range Comments FIBRINOGEN LEVEL (BEAKER) (test kxop=125) 424 mg/dl 225-434 CBC W/PLT COUNT & AUTO [id number] 06:48:00 Test Item Value Reference Range Comments WHITE BLOOD CELL COUNT (BEAKER) (test wabb=004) 4.7 K/ L 4.0-10.0 RED BLOOD CELL COUNT (BEAKER) (test sngj=607) 3.08 M/ L 4.20-5.80 HEMOGLOBIN (BEAKER) (test pdgs=921) 9.0 GM/DL 13.0-16.8 HEMATOCRIT (BEAKER) (test sidr=592) 27.3 % 40.0-50.0 MEAN CORPUSCULAR VOLUME (BEAKER) (test ozuf=485) 88.5 fL 82.0-98.0 MEAN CORPUSCULAR HEMOGLOBIN (BEAKER) (test 29.2 pg 27.0-33.0 ekdp=052) MEAN CORPUSCULAR HEMOGLOBIN CONC (BEAKER) (test 33.0 GM/DL 32.0-36.0 ttqm=858) RED CELL DISTRIBUTION WIDTH (BEAKER) (test 13.6 % 10.3-14.2 augm=918) PLATELET COUNT (BEAKER) (test gpch=901) 241 K/CU MM 150-430 MEAN PLATELET VOLUME (BEAKER) (test uudb=484) 6.1 fL 6.5-10.5 NUCLEATED RED BLOOD CELLS (BEAKER) (test 0 /100 WBC 0-0 wjmo=882) NEUTROPHILS RELATIVE PERCENT (BEAKER) (test 77 % xvsv=342) LYMPHOCYTES RELATIVE PERCENT (BEAKER) (test 14 % teva=987) MONOCYTES RELATIVE PERCENT (BEAKER) (test 6 % qmpe=009) EOSINOPHILS RELATIVE PERCENT (BEAKER) (test 3 % cjun=227) BASOPHILS RELATIVE PERCENT (BEAKER) (test 1 % nbat=016) NEUTROPHILS ABSOLUTE COUNT (BEAKER) (test 3.63 K/ L 1.80-8.00 dafh=965) LYMPHOCYTES ABSOLUTE COUNT (BEAKER) (test 0.64 K/ L 1.48-4.50 usev=614) MONOCYTES ABSOLUTE COUNT (BEAKER) (test 0.27 K/ L 0.00-1.30 ifhe=547) EOSINOPHILS ABSOLUTE COUNT (BEAKER) (test 0.14 K/ L 0.00-0.50 hvhi=452) BASOPHILS ABSOLUTE COUNT (BEAKER) (test 0.03 K/ L 0.00-0.20 afch=881) [id number] 05:05:00 Test Item Value Reference Range Comments PARTIAL THROMBOPLASTIN TIME (BEAKER) (test 51.7 seconds 22.5-36.0 rwal=137) POCT-GLUCOSE [id number] 04:37:00 Test Item Value Reference Range Comments POC-GLUCOSE METER (BEAKER) 108 mg/dL 70-[address] [facility] [address] [facility] (test btws=1278) [facility] [address] [id number] 22:51:00 Test Item Value Reference Range Comments PARTIAL THROMBOPLASTIN TIME (BEAKER) (test 96.1 seconds 22.5-36.0 ussj=398) [id number] 16:04:00 Test Item Value Reference Range Comments PARTIAL THROMBOPLASTIN TIME (BEAKER) (test 93.1 seconds 22.5-36.0 thiq=317) [id number] 06:38:00 Test Item Value Reference Range Comments PARTIAL THROMBOPLASTIN TIME (BEAKER) (test 93.0 seconds 22.5-36.0 vnfl=090) [id number] 23:08:00 Test Item Value Reference Range Comments PARTIAL THROMBOPLASTIN TIME (BEAKER) (test 56.6 seconds 22.5-36.0 ydmc=158) [id number] 18:59:00 Test Item Value Reference Range Comments PARTIAL THROMBOPLASTIN TIME (BEAKER) (test 28.6 seconds 22.5-36.0 lgov=735) PROTHROMBIN [id number] 15:38:00 Test Item Value Reference Range Comments PROTIME (BEAKER) (test brco=721) 13.9 seconds 11.7-14.7 INR (BEAKER) (test unze=748) 1.1 <=5.9 RECOMMENDED COUMADIN/WARFARIN INR THERAPY RANGESSTANDARD DOSE: 2.0 - 3.0 Includes: PROPHYLAXIS forvenous thrombosis, systemic embolization; TREATMENT for venous thrombosis and/or pulmonary embolus.HIGH RISK: Target INR is 2.5-3.5 for patients with mechanical heart valves.[id number] 12:27:00 Test Item Value Reference Range Comments PARTIAL THROMBOPLASTIN TIME (BEAKER) (test 65.9 seconds 22.5-36.0 mmzu=375) CBC W/PLT COUNT & AUTO [id number] 06:07:00 Test Item Value Reference Range Comments WHITE BLOOD CELL COUNT (BEAKER) (test azec=185) 4.4 K/ L 4.0-10.0 RED BLOOD CELL COUNT (BEAKER) (test xjms=162) 2.81 M/ L 4.20-5.80 HEMOGLOBIN (BEAKER) (test pdqz=333) 8.7 GM/DL 13.0-16.8 HEMATOCRIT (BEAKER) (test dssg=505) 24.5 % 40.0-50.0 MEAN CORPUSCULAR VOLUME (BEAKER) (test tnif=814) 87.3 fL 82.0-98.0 MEAN CORPUSCULAR HEMOGLOBIN (BEAKER) (test 31.1 pg 27.0-33.0 kesl=195) MEAN CORPUSCULAR HEMOGLOBIN CONC (BEAKER) (test 35.6 GM/DL 32.0-36.0 jwhj=134) RED CELL DISTRIBUTION WIDTH (BEAKER) (test 13.3 % 10.3-14.2 swdz=011) PLATELET COUNT (BEAKER) (test qlge=899) 176 K/CU MM 150-430 MEAN PLATELET VOLUME (BEAKER) (test xhdl=969) 6.1 fL 6.5-10.5 NUCLEATED RED BLOOD CELLS (BEAKER) (test 0 /100 WBC 0-0 jyoi=610) NEUTROPHILS RELATIVE PERCENT (BEAKER) (test 72 % bvcz=756) LYMPHOCYTES RELATIVE PERCENT (BEAKER) (test 15 % qlzb=006) MONOCYTES RELATIVE PERCENT (BEAKER) (test 8 % wflh=317) EOSINOPHILS RELATIVE PERCENT (BEAKER) (test 4 % rkuv=300) BASOPHILS RELATIVE PERCENT (BEAKER) (test 1 % serb=152) NEUTROPHILS ABSOLUTE COUNT (BEAKER) (test 3.14 K/ L 1.80-8.00 ejev=746) LYMPHOCYTES ABSOLUTE COUNT (BEAKER) (test 0.65 K/ L 1.48-4.50 cfnz=310) MONOCYTES ABSOLUTE COUNT (BEAKER) (test 0.35 K/ L 0.00-1.30 dtzu=284) EOSINOPHILS ABSOLUTE COUNT (BEAKER) (test 0.17 K/ L 0.00-0.50 drjq=090) BASOPHILS ABSOLUTE COUNT (BEAKER) (test 0.04 K/ L 0.00-0.20 obdf=844) 0.00BASIC METABOLIC [id number] 05:49:00 Test Item Value Reference Range Comments SODIUM (BEAKER) (test 131 meq/L 136-145 sxpw=998) POTASSIUM (BEAKER) (test 4.3 meq/L 3.5-5.1 mett=719) CHLORIDE (BEAKER) (test 97 meq/L 98-107 anpy=409) CO2 (BEAKER) (test 26 meq/L 22-29 yenc=265) BLOOD UREA NITROGEN 17 mg/dL 7-21 (BEAKER) (test piid=959) CREATININE (BEAKER) (test 0.87 mg/dL 0.57-1.25 aewl=415) GLUCOSE RANDOM (BEAKER) 101 mg/dL 70-105 (test rxnx=592) CALCIUM (BEAKER) (test 8.5 mg/dL 8.4-10.2 eydw=760) EGFR (BEAKER) (test 87 mL/min/1.73 sq m ESTIMATED GFR IS NOT worg=2027) ACCURATE CREATININE CLEARANCE IN PREDICTING GLOMERULAR FILTRATION RATE. ESTIMATED GFR IS NOT APPLICABLE FOR DIALYSIS PATIENTS. [id number] 05:25:00 Test Item Value Reference Range Comments PARTIAL THROMBOPLASTIN TIME (BEAKER) (test 83.0 seconds 22.5-36.0 imlx=467) [id number] 22:17:00 Test Item Value Reference Range Comments PARTIAL THROMBOPLASTIN TIME (BEAKER) (test 91.0 seconds 22.5-36.0 krir=799) [id number] 16:11:00 Test Item Value Reference Range Comments PARTIAL THROMBOPLASTIN TIME (BEAKER) (test 94.0 seconds 22.5-36.0 takq=596) [id number] 09:42:00 Test Item Value Reference Range Comments PARTIAL THROMBOPLASTIN TIME (BEAKER) (test 89.9 seconds 22.5-36.0 gsfr=464) [id number] 02:30:00 Test Item Value Reference Range Comments PARTIAL THROMBOPLASTIN TIME (BEAKER) (test 108.5 seconds 22.5-36.0 gkxy=105) [id number] 18:47:00 Test Item Value Reference Range Comments PARTIAL THROMBOPLASTIN TIME (BEAKER) (test 74.1 seconds 22.5-36.0 mgbn=952) [id number] 12:42:00 Test Item Value Reference Range Comments PARTIAL THROMBOPLASTIN TIME (BEAKER) (test 48.7 seconds 22.5-36.0 jemn=712) BASIC METABOLIC [id number] 05:29:00 Test Item Value Reference Range Comments SODIUM (BEAKER) (test 126 meq/L 136-145 qbpm=521) POTASSIUM (BEAKER) (test 5.0 meq/L 3.5-5.1 qyuw=758) CHLORIDE (BEAKER) (test 92 meq/L 98-107 xuln=256) CO2 (BEAKER) (test 23 meq/L 22-29 owpq=085) BLOOD UREA NITROGEN 30 mg/dL 7-21 (BEAKER) (test ezib=984) CREATININE (BEAKER) (test 1.03 mg/dL 0.57-1.25 vdjl=916) GLUCOSE RANDOM (BEAKER) 112 mg/dL 70-105 (test pghf=607) CALCIUM (BEAKER) (test 9.0 mg/dL 8.4-10.2 sgjw=009) EGFR (BEAKER) (test 72 mL/min/1.73 sq m ESTIMATED GFR IS NOT vmpt=8135) ACCURATE CREATININE CLEARANCE IN PREDICTING GLOMERULAR FILTRATION RATE. ESTIMATED GFR IS NOT APPLICABLE FOR DIALYSIS PATIENTS. [id number] 05:14:00 Test Item Value Reference Range Comments PARTIAL THROMBOPLASTIN TIME (BEAKER) (test 43.1 seconds 22.5-36.0 stas=269) [id number] 22:32:00 Test Item Value Reference Range Comments PARTIAL THROMBOPLASTIN TIME (BEAKER) (test 42.2 seconds 22.5-36.0 gduu=777) [id number] 15:38:00 Test Item Value Reference Range Comments PARTIAL THROMBOPLASTIN TIME (BEAKER) (test 36.5 seconds 22.5-36.0 xysg=891) Prior to initiating heparinCBC (HEMOGRAM ONLY)[id number] 15:22:00 Test Item Value Reference Range Comments WHITE BLOOD CELL COUNT (BEAKER) (test bjvx=025) 11.9 K/ L 4.0-10.0 RED BLOOD CELL COUNT (BEAKER) (test ncpd=201) 3.65 M/ L 4.20-5.80 HEMOGLOBIN (BEAKER) (test trup=376) 11.2 GM/DL 13.0-16.8 HEMATOCRIT (BEAKER) (test ssbi=937) 31.7 % 40.0-50.0 MEAN CORPUSCULAR VOLUME (BEAKER) (test ttpn=998) 86.8 fL 82.0-98.0 MEAN CORPUSCULAR HEMOGLOBIN (BEAKER) (test 30.6 pg 27.0-33.0 aohp=563) MEAN CORPUSCULAR HEMOGLOBIN CONC (BEAKER) (test 35.3 GM/DL 32.0-36.0 imfp=720) RED CELL DISTRIBUTION WIDTH (BEAKER) (test 13.6 % 10.3-14.2 vqaj=328) PLATELET COUNT (BEAKER) (test csne=134) 132 K/CU MM 150-430 MEAN PLATELET VOLUME (BEAKER) (test wwfr=887) 6.8 fL 6.5-10.5 NUCLEATED RED BLOOD CELLS (BEAKER) (test 0 /100 WBC 0-0 klsa=193) 0.00BASIC METABOLIC [id number] 06:35:00 Test Item Value Reference Range Comments SODIUM (BEAKER) (test 125 meq/L 136-145 pkre=557) POTASSIUM (BEAKER) (test 4.8 meq/L 3.5-5.1 xrvn=491) CHLORIDE (BEAKER) (test 94 meq/L 98-107 jnal=778) CO2 (BEAKER) (test 19 meq/L 22-29 ikey=312) BLOOD UREA NITROGEN 29 mg/dL 7-21 (BEAKER) (test sixi=027) CREATININE (BEAKER) (test 1.12 mg/dL 0.57-1.25 apko=257) GLUCOSE RANDOM (BEAKER) 141 mg/dL 70-105 (test erng=418) CALCIUM (BEAKER) (test 9.0 mg/dL 8.4-10.2 rtwv=896) EGFR (BEAKER) (test 65 mL/min/1.73 sq m ESTIMATED GFR IS NOT kmvw=2995) ACCURATE CREATININE CLEARANCE IN PREDICTING GLOMERULAR FILTRATION RATE. ESTIMATED GFR IS NOT APPLICABLE FOR DIALYSIS PATIENTS. CBC (HEMOGRAM ONLY)[id number] 06:24:00 Test Item Value Reference Range Comments WHITE BLOOD CELL COUNT (BEAKER) (test okan=880) 12.2 K/ L 4.0-10.0 RED BLOOD CELL COUNT (BEAKER) (test pfie=365) 3.84 M/ L 4.20-5.80 HEMOGLOBIN (BEAKER) (test nsbh=382) 10.8 GM/DL 13.0-16.8 HEMATOCRIT (BEAKER) (test eeul=557) 32.9 % 40.0-50.0 MEAN CORPUSCULAR VOLUME (BEAKER) (test pgep=589) 85.8 fL 82.0-98.0 MEAN CORPUSCULAR HEMOGLOBIN (BEAKER) (test 28.3 pg 27.0-33.0 yipu=214) MEAN CORPUSCULAR HEMOGLOBIN CONC (BEAKER) (test 33.0 GM/DL 32.0-36.0 ogpn=288) RED CELL DISTRIBUTION WIDTH (BEAKER) (test 14.7 % 10.3-14.2 yegq=051) PLATELET COUNT (BEAKER) (test uyzz=706) 135 K/CU MM 150-430 MEAN PLATELET VOLUME (BEAKER) (test alrw=189) 7.3 fL 6.5-10.5 NUCLEATED RED BLOOD CELLS (BEAKER) (test 0 /100 WBC 0-0 ntjc=525) 0.00PHENYTOIN LEVEL, [id number] 06:21:00 Test Item Value Reference Range Comments PHENYTOIN (DILANTIN) (BEAKER) (test ayza=263) 4.0 ug/mL 10.0-20.0 URINALYSIS W/ REFLEX URINE [id number] 12:57:00 Test Item Value Reference Range Comments COLOR (BEAKER) (test ekvh=443) Dark Yellow CLARITY (BEAKER) (test xbdg=986) Hazy SPECIFIC GRAVITY UA (BEAKER) (test lxhr=664) 1.040 1.001-1.035 PH UA (BEAKER) (test tuov=394) 6.0 5.0-8.0 PROTEIN UA (BEAKER) (test whch=653) 100 mg/dL Negative GLUCOSE UA (BEAKER) (test ywqi=382) Negative Negative KETONES UA (BEAKER) (test gfyu=493) Trace Negative BILIRUBIN UA (BEAKER) (test jigt=598) Negative Negative BLOOD UA (BEAKER) (test pwao=970) Negative Negative NITRITE UA (BEAKER) (test vxfk=984) Negative Negative LEUKOCYTE ESTERASE UA (BEAKER) (test iizf=656) Negative Negative UROBILINOGEN UA (BEAKER) (test qqiw=194) 2.0 mg/dL 0.2-1.0 RBC UA (BEAKER) (test qwws=962) 1 /HPF WBC UA (BEAKER) (test vlvm=203) 4 /HPF MUCUS (BEAKER) (test jqez=9497) Many HYALINE CASTS (BEAKER) (test nszh=978) 15 /LPF SOURCE(BEAKER) (test ytju=5509) HEPATIC FUNCTION [id number] 12:45:00 Test Item Value Reference Range Comments TOTAL PROTEIN (BEAKER) (test uarg=089) 7.0 gm/dL 6.0-8.3 ALBUMIN (BEAKER) (test vkgt=4356) 3.7 g/dL 3.5-5.0 BILIRUBIN TOTAL (BEAKER) (test xoad=873) 0.5 mg/dL 0.2-1.2 BILIRUBIN DIRECT (BEAKER) (test ayaa=211) 0.2 mg/dL 0.1-0.5 ALKALINE PHOSPHATASE (BEAKER) (test mhnh=137) 99 U/L 40-150 AST (SGOT) (BEAKER) (test jrqa=675) 18 U/L 5-34 ALT (SGPT) (BEAKER) (test tbsk=654) 22 U/L 6-55 BASIC METABOLIC [id number] 12:45:00 Test Item Value Reference Range Comments SODIUM (BEAKER) (test 130 meq/L 136-145 mfeo=130) POTASSIUM (BEAKER) (test 4.3 meq/L 3.5-5.1 zrzk=419) CHLORIDE (BEAKER) (test 97 meq/L 98-107 tlup=213) CO2 (BEAKER) (test 21 meq/L 22-29 ugli=890) BLOOD UREA NITROGEN 21 mg/dL 7-21 (BEAKER) (test ufis=356) CREATININE (BEAKER) (test 1.19 mg/dL 0.57-1.25 glxo=596) GLUCOSE RANDOM (BEAKER) 139 mg/dL 70-105 (test kone=304) CALCIUM (BEAKER) (test 8.7 mg/dL 8.4-10.2 hhta=955) EGFR (BEAKER) (test 61 mL/min/1.73 sq m ESTIMATED GFR IS NOT uruq=9487) ACCURATE CREATININE CLEARANCE IN PREDICTING GLOMERULAR FILTRATION RATE. ESTIMATED GFR IS NOT APPLICABLE FOR DIALYSIS PATIENTS. CBC (HEMOGRAM ONLY)2017-01-12 12:33:00 Test Item Value Reference Range Comments WHITE BLOOD CELL COUNT (BEAKER) (test kqrk=552) 12.2 K/ L 4.0-10.0 RED BLOOD CELL COUNT (BEAKER) (test clxf=591) 3.61 M/ L 4.20-5.80 HEMOGLOBIN (BEAKER) (test xvif=717) 10.9 GM/DL 13.0-16.8 HEMATOCRIT (BEAKER) (test ctps=566) 31.6 % 40.0-50.0 MEAN CORPUSCULAR VOLUME (BEAKER) (test glwt=831) 87.4 fL 82.0-98.0 MEAN CORPUSCULAR HEMOGLOBIN (BEAKER) (test 30.1 pg 27.0-33.0 zzrx=626) MEAN CORPUSCULAR HEMOGLOBIN CONC (BEAKER) (test 34.4 GM/DL 32.0-36.0 lboe=302) RED CELL DISTRIBUTION WIDTH (BEAKER) (test 13.0 % 10.3-14.2 udlj=183) PLATELET COUNT (BEAKER) (test sbgz=576) 131 K/CU MM 150-430 MEAN PLATELET VOLUME (BEAKER) (test dhod=151) 6.6 fL 6.5-10.5 NUCLEATED RED BLOOD CELLS (BEAKER) (test 0 /100 WBC 0-0 vrzr=567) 0.00POCT-GLUCOSE [id number] 11:53:00 Test Item Value Reference Range Comments POC-GLUCOSE METER (BEAKER) 117 mg/dL 70-[address] [facility] [address] (test gyss=9347) [facility] [address] CBC W/PLT COUNT & AUTO [id number] 07:10:00 Test Item Value Reference Range Comments WHITE BLOOD CELL COUNT (BEAKER) (test xfim=295) 3.7 K/ L 4.0-10.0 RED BLOOD CELL COUNT (BEAKER) (test fetq=170) 3.87 M/ L 4.20-5.80 HEMOGLOBIN (BEAKER) (test jhfx=633) 11.7 GM/DL 13.0-16.8 HEMATOCRIT (BEAKER) (test jnws=225) 34.6 % 40.0-50.0 MEAN CORPUSCULAR VOLUME (BEAKER) (test unvf=287) 89.6 fL 82.0-98.0 MEAN CORPUSCULAR HEMOGLOBIN (BEAKER) (test 30.4 pg 27.0-33.0 mmtd=477) MEAN CORPUSCULAR HEMOGLOBIN CONC (BEAKER) (test 33.9 GM/DL 32.0-36.0 yber=985) RED CELL DISTRIBUTION WIDTH (BEAKER) (test 12.0 % 10.3-14.2 qocg=176) PLATELET COUNT (BEAKER) (test xgmm=359) 158 K/CU MM 150-430 MEAN PLATELET VOLUME (BEAKER) (test odea=158) 6.6 fL 6.5-10.5 NUCLEATED RED BLOOD CELLS (BEAKER) (test 0 /100 WBC 0-0 ulwm=804) NEUTROPHILS RELATIVE PERCENT (BEAKER) (test 65 % okke=742) LYMPHOCYTES RELATIVE PERCENT (BEAKER) (test 18 % khxm=668) MONOCYTES RELATIVE PERCENT (BEAKER) (test 11 % tpon=563) EOSINOPHILS RELATIVE PERCENT (BEAKER) (test 6 % ljxp=497) BASOPHILS RELATIVE PERCENT (BEAKER) (test 0 % joge=335) NEUTROPHILS ABSOLUTE COUNT (BEAKER) (test 2.40 K/ L 1.80-8.00 wzhb=109) LYMPHOCYTES ABSOLUTE COUNT (BEAKER) (test 0.68 K/ L 1.48-4.50 kazk=380) MONOCYTES ABSOLUTE COUNT (BEAKER) (test 0.40 K/ L 0.00-1.30 lzdo=278) EOSINOPHILS ABSOLUTE COUNT (BEAKER) (test 0.23 K/ L 0.00-0.50 wami=592) BASOPHILS ABSOLUTE COUNT (BEAKER) (test 0.01 K/ L 0.00-0.20 whxm=771) [id number] 15:06:00 Test Item Value Reference Range Comments PROTIME (BEAKER) (test nuwl=210) 14.8 seconds 11.7-14.7 INR (BEAKER) (test bpqr=603) 1.2 <=5.9 PARTIAL THROMBOPLASTIN TIME (BEAKER) (test 29.1 seconds 22.5-36.0 gzsj=018) RECOMMENDED COUMADIN/WARFARIN INR THERAPY RANGESSTANDARD DOSE: 2.0 - 3.0 Includes: PROPHYLAXIS forvenous thrombosis, systemic embolization; TREATMENT for venous thrombosis and/or pulmonary embolus.HIGH RISK: Target INR is 2.5-3.5 for patients with mechanical heart valves.POCT-GLUCOSE [id number] 12:02:00 Test Item Value Reference Range Comments POC-GLUCOSE METER (BEAKER) 137 mg/dL 70-[address] [facility] [address] [facility] (test pdrh=5876) [facility] [address] BASIC METABOLIC [id number] 05:46:00 Test Item Value Reference Range Comments SODIUM (BEAKER) (test 134 meq/L 136-145 laak=096) POTASSIUM (BEAKER) (test 3.9 meq/L 3.5-5.1 cseu=059) CHLORIDE (BEAKER) (test 101 meq/L 98-107 taoe=041) CO2 (BEAKER) (test 25 meq/L 22-29 vbbx=486) BLOOD UREA NITROGEN 10 mg/dL 7-21 (BEAKER) (test mtay=113) CREATININE (BEAKER) (test 0.82 mg/dL 0.57-1.25 owdu=369) GLUCOSE RANDOM (BEAKER) 102 mg/dL 70-105 (test cwex=920) CALCIUM (BEAKER) (test 8.6 mg/dL 8.4-10.2 ohql=536) EGFR (BEAKER) (test 93 mL/min/1.73 sq m ESTIMATED GFR IS NOT nqno=3778) ACCURATE CREATININE CLEARANCE IN PREDICTING GLOMERULAR FILTRATION RATE. ESTIMATED GFR IS NOT APPLICABLE FOR DIALYSIS PATIENTS. CBC W/PLT COUNT & AUTO [id number] 05:44:00 Test Item Value Reference Range Comments WHITE BLOOD CELL COUNT (BEAKER) (test aizy=578) 3.9 K/ L 4.0-10.0 RED BLOOD CELL COUNT (BEAKER) (test mzsh=675) 3.89 M/ L 4.20-5.80 HEMOGLOBIN (BEAKER) (test vsvn=797) 11.8 GM/DL 13.0-16.8 HEMATOCRIT (BEAKER) (test ylwe=560) 35.0 % 40.0-50.0 MEAN CORPUSCULAR VOLUME (BEAKER) (test pofz=372) 90.0 fL 82.0-98.0 MEAN CORPUSCULAR HEMOGLOBIN (BEAKER) (test 30.4 pg 27.0-33.0 zhqb=158) MEAN CORPUSCULAR HEMOGLOBIN CONC (BEAKER) (test 33.8 GM/DL 32.0-36.0 upfm=180) RED CELL DISTRIBUTION WIDTH (BEAKER) (test 11.9 % 10.3-14.2 okik=327) PLATELET COUNT (BEAKER) (test bqvn=305) 160 K/CU MM 150-430 MEAN PLATELET VOLUME (BEAKER) (test wilw=668) 6.3 fL 6.5-10.5 NUCLEATED RED BLOOD CELLS (BEAKER) (test 0 /100 WBC 0-0 lnvk=209) NEUTROPHILS RELATIVE PERCENT (BEAKER) (test 68 % xtag=697) LYMPHOCYTES RELATIVE PERCENT (BEAKER) (test 14 % bqyy=116) MONOCYTES RELATIVE PERCENT (BEAKER) (test 11 % ezdn=858) EOSINOPHILS RELATIVE PERCENT (BEAKER) (test 8 % zaoj=519) BASOPHILS RELATIVE PERCENT (BEAKER) (test 0 % yrqn=067) NEUTROPHILS ABSOLUTE COUNT (BEAKER) (test 2.66 K/ L 1.80-8.00 ovxe=169) LYMPHOCYTES ABSOLUTE COUNT (BEAKER) (test 0.54 K/ L 1.48-4.50 lqsf=925) MONOCYTES ABSOLUTE COUNT (BEAKER) (test 0.42 K/ L 0.00-1.30 iuqw=985) EOSINOPHILS ABSOLUTE COUNT (BEAKER) (test 0.31 K/ L 0.00-0.50 gtam=488) BASOPHILS ABSOLUTE COUNT (BEAKER) (test 0.01 K/ L 0.00-0.20 jnti=228) 0.00POCT-GLUCOSE [id number] 01:09:00 Test Item Value Reference Range Comments POC-GLUCOSE METER (BEAKER) 105 mg/dL 70-110 TESTED AT [address] (test aaqz=0373) [facility] [address] POCT-GLUCOSE [id number] 17:33:00 Test Item Value Reference Range Comments POC-GLUCOSE METER (BEAKER) 123 mg/dL 70-110 TESTED AT [address] (test xywu=6355) [facility] [address] POCT-GLUCOSE [id number] 12:08:00 Test Item Value Reference Range Comments POC-GLUCOSE METER (BEAKER) 104 mg/dL 70-110 TESTED AT [address] (test teps=5532) [facility] [address] POCT-GLUCOSE [id number] 06:26:00 Test Item Value Reference Range Comments POC-GLUCOSE METER (BEAKER) 139 mg/dL 70-110 TESTED AT [address] (test trsf=9398) [facility] [address] BASIC METABOLIC [id number] 04:04:00 Test Item Value Reference Range Comments SODIUM (BEAKER) (test 137 meq/L 136-145 fsim=691) POTASSIUM (BEAKER) (test 3.8 meq/L 3.5-5.1 nmpq=029) CHLORIDE (BEAKER) (test 104 meq/L 98-107 frvm=421) CO2 (BEAKER) (test 25 meq/L 22-29 zlwo=690) BLOOD UREA NITROGEN 15 mg/dL 7-21 (BEAKER) (test ogpa=211) CREATININE (BEAKER) (test 0.83 mg/dL 0.57-1.25 lzpi=017) GLUCOSE RANDOM (BEAKER) 114 mg/dL 70-105 (test xxjz=138) CALCIUM (BEAKER) (test 8.5 mg/dL 8.4-10.2 prjw=857) EGFR (BEAKER) (test 92 mL/min/1.73 sq m ESTIMATED GFR IS NOT xium=9218) ACCURATE CREATININE CLEARANCE IN PREDICTING GLOMERULAR FILTRATION RATE. ESTIMATED GFR IS NOT APPLICABLE FOR DIALYSIS PATIENTS. CBC W/PLT COUNT & AUTO [id number] 03:54:00 Test Item Value Reference Range Comments WHITE BLOOD CELL COUNT (BEAKER) (test kamj=655) 4.4 K/ L 4.0-10.0 RED BLOOD CELL COUNT (BEAKER) (test hspc=537) 3.67 M/ L 4.20-5.80 HEMOGLOBIN (BEAKER) (test ntvw=462) 11.2 GM/DL 13.0-16.8 HEMATOCRIT (BEAKER) (test kgtw=226) 32.9 % 40.0-50.0 MEAN CORPUSCULAR VOLUME (BEAKER) (test lnxb=708) 89.8 fL 82.0-98.0 MEAN CORPUSCULAR HEMOGLOBIN (BEAKER) (test 30.4 pg 27.0-33.0 jkga=393) MEAN CORPUSCULAR HEMOGLOBIN CONC (BEAKER) (test 33.9 GM/DL 32.0-36.0 zfby=559) RED CELL DISTRIBUTION WIDTH (BEAKER) (test 12.0 % 10.3-14.2 udto=710) PLATELET COUNT (BEAKER) (test bqer=826) 162 K/CU MM 150-430 MEAN PLATELET VOLUME (BEAKER) (test cgzk=478) 6.1 fL 6.5-10.5 NUCLEATED RED BLOOD CELLS (BEAKER) (test 0 /100 WBC 0-0 ydaf=132) NEUTROPHILS RELATIVE PERCENT (BEAKER) (test 68 % ycwz=788) LYMPHOCYTES RELATIVE PERCENT (BEAKER) (test 14 % coui=398) MONOCYTES RELATIVE PERCENT (BEAKER) (test 11 % jfyj=423) EOSINOPHILS RELATIVE PERCENT (BEAKER) (test 8 % sijz=092) BASOPHILS RELATIVE PERCENT (BEAKER) (test 0 % weyr=065) NEUTROPHILS ABSOLUTE COUNT (BEAKER) (test 2.96 K/ L 1.80-8.00 dpep=558) LYMPHOCYTES ABSOLUTE COUNT (BEAKER) (test 0.59 K/ L 1.48-4.50 ipyw=402) MONOCYTES ABSOLUTE COUNT (BEAKER) (test 0.47 K/ L 0.00-1.30 fvln=139) EOSINOPHILS ABSOLUTE COUNT (BEAKER) (test 0.33 K/ L 0.00-0.50 cwok=348) BASOPHILS ABSOLUTE COUNT (BEAKER) (test 0.02 K/ L 0.00-0.20 eqqq=793) 0.00POCT-GLUCOSE [id number] 00:30:00 Test Item Value Reference Range Comments POC-GLUCOSE METER (BEAKER) 106 mg/dL 70-[address] [facility] [address] [facility] (test tmgq=2933) [facility] [address] POCT-GLUCOSE [id number] 17:47:00 Test Item Value Reference Range Comments POC-GLUCOSE METER (BEAKER) 158 mg/dL 70-[address] [facility] [address] [facility] (test viur=1377) [facility] [address] POCT-GLUCOSE [id number] 12:41:00 Test Item Value Reference Range Comments POC-GLUCOSE METER (BEAKER) 184 mg/dL 70-110 TESTED AT [place] [id number] [facility] (test grho=2656) [facility] [address] BASIC METABOLIC [id number] 07:20:00 Test Item Value Reference Range Comments SODIUM (BEAKER) (test 132 meq/L 136-145 giew=624) POTASSIUM (BEAKER) (test 3.8 meq/L 3.5-5.1 lyyc=855) CHLORIDE (BEAKER) (test 103 meq/L 98-107 wzra=317) CO2 (BEAKER) (test 21 meq/L 22-29 ggdp=582) BLOOD UREA NITROGEN 10 mg/dL 7-21 (BEAKER) (test ydir=447) CREATININE (BEAKER) (test 0.76 mg/dL 0.57-1.25 gbxi=750) GLUCOSE RANDOM (BEAKER) 105 mg/dL 70-105 (test qoyu=673) CALCIUM (BEAKER) (test 8.4 mg/dL 8.4-10.2 frwx=111) EGFR (BEAKER) (test 102 mL/min/1.73 sq m ESTIMATED GFR IS NOT njra=3316) ACCURATE CREATININE CLEARANCE IN PREDICTING GLOMERULAR FILTRATION RATE. ESTIMATED GFR IS NOT APPLICABLE FOR DIALYSIS PATIENTS. CBC W/PLT COUNT & AUTO [id number] 06:56:00 Test Item Value Reference Range Comments WHITE BLOOD CELL COUNT (BEAKER) (test ieoj=029) 3.9 K/ L 4.0-10.0 RED BLOOD CELL COUNT (BEAKER) (test dntv=753) 3.68 M/ L 4.20-5.80 HEMOGLOBIN (BEAKER) (test mzzd=738) 11.0 GM/DL 13.0-16.8 HEMATOCRIT (BEAKER) (test xvyo=982) 32.7 % 40.0-50.0 MEAN CORPUSCULAR VOLUME (BEAKER) (test hyas=802) 88.9 fL 82.0-98.0 MEAN CORPUSCULAR HEMOGLOBIN (BEAKER) (test 29.9 pg 27.0-33.0 birl=925) MEAN CORPUSCULAR HEMOGLOBIN CONC (BEAKER) (test 33.6 GM/DL 32.0-36.0 qnqj=410) RED CELL DISTRIBUTION WIDTH (BEAKER) (test 11.7 % 10.3-14.2 vypr=001) PLATELET COUNT (BEAKER) (test ncpr=023) 188 K/CU MM 150-430 MEAN PLATELET VOLUME (BEAKER) (test bdms=251) 6.3 fL 6.5-10.5 NUCLEATED RED BLOOD CELLS (BEAKER) (test 0 /100 WBC 0-0 olix=952) NEUTROPHILS RELATIVE PERCENT (BEAKER) (test 68 % igmz=787) LYMPHOCYTES RELATIVE PERCENT (BEAKER) (test 13 % gfjo=839) MONOCYTES RELATIVE PERCENT (BEAKER) (test 11 % wlce=322) EOSINOPHILS RELATIVE PERCENT (BEAKER) (test 8 % dcaa=739) BASOPHILS RELATIVE PERCENT (BEAKER) (test 0 % zgtw=437) NEUTROPHILS ABSOLUTE COUNT (BEAKER) (test 2.64 K/ L 1.80-8.00 apyo=090) LYMPHOCYTES ABSOLUTE COUNT (BEAKER) (test 0.52 K/ L 1.48-4.50 flep=773) MONOCYTES ABSOLUTE COUNT (BEAKER) (test 0.42 K/ L 0.00-1.30 lyfp=280) EOSINOPHILS ABSOLUTE COUNT (BEAKER) (test 0.31 K/ L 0.00-0.50 jnbr=401) BASOPHILS ABSOLUTE COUNT (BEAKER) (test 0.02 K/ L 0.00-0.20 dlfh=509) 0.00POCT-GLUCOSE [id number] 06:28:00 Test Item Value Reference Range Comments POC-GLUCOSE METER (BEAKER) 130 mg/dL 70-110 TESTED AT [address] (test ujwt=8627) [facility] [address] POCT-GLUCOSE [id number] 00:19:00 Test Item Value Reference Range Comments POC-GLUCOSE METER (BEAKER) 124 mg/dL 70-110 TESTED AT [address] (test aewd=9605) [facility] [address] POCT-GLUCOSE [id number] 18:43:00 Test Item Value Reference Range Comments POC-GLUCOSE METER (BEAKER) 92 mg/dL 70-[address] [facility] [address] [facility] (test kqjr=7883) [facility] [address] POCT-GLUCOSE [id number] 12:34:00 Test Item Value Reference Range Comments POC-GLUCOSE METER (BEAKER) 176 mg/dL 70-[address] [facility] [address] [facility] (test ixmf=6039) [facility] [address] CBC W/PLT COUNT & AUTO [id number] 09:33:00 Test Item Value Reference Range Comments WHITE BLOOD CELL COUNT (BEAKER) (test nbjw=499) 4.3 K/ L 4.0-10.0 RED BLOOD CELL COUNT (BEAKER) (test eqbo=617) 3.67 M/ L 4.20-5.80 HEMOGLOBIN (BEAKER) (test lpsh=617) 11.2 GM/DL 13.0-16.8 HEMATOCRIT (BEAKER) (test cmiv=469) 32.8 % 40.0-50.0 MEAN CORPUSCULAR VOLUME (BEAKER) (test eqcu=126) 89.4 fL 82.0-98.0 MEAN CORPUSCULAR HEMOGLOBIN (BEAKER) (test 30.5 pg 27.0-33.0 wwgk=101) MEAN CORPUSCULAR HEMOGLOBIN CONC (BEAKER) (test 34.1 GM/DL 32.0-36.0 bizm=760) RED CELL DISTRIBUTION WIDTH (BEAKER) (test 11.7 % 10.3-14.2 upfd=409) PLATELET COUNT (BEAKER) (test tnyg=612) 199 K/CU MM 150-430 MEAN PLATELET VOLUME (BEAKER) (test jbbi=817) 6.2 fL 6.5-10.5 NUCLEATED RED BLOOD CELLS (BEAKER) (test 0 /100 WBC 0-0 tfwu=386) NEUTROPHILS RELATIVE PERCENT (BEAKER) (test 77 % uata=672) LYMPHOCYTES RELATIVE PERCENT (BEAKER) (test 10 % acdv=602) MONOCYTES RELATIVE PERCENT (BEAKER) (test 9 % lacq=635) EOSINOPHILS RELATIVE PERCENT (BEAKER) (test 3 % vibu=381) BASOPHILS RELATIVE PERCENT (BEAKER) (test 0 % mjuk=846) NEUTROPHILS ABSOLUTE COUNT (BEAKER) (test 3.34 K/ L 1.80-8.00 dxlm=523) LYMPHOCYTES ABSOLUTE COUNT (BEAKER) (test 0.43 K/ L 1.48-4.50 exyx=030) MONOCYTES ABSOLUTE COUNT (BEAKER) (test 0.40 K/ L 0.00-1.30 cuai=033) EOSINOPHILS ABSOLUTE COUNT (BEAKER) (test 0.14 K/ L 0.00-0.50 jcco=403) BASOPHILS ABSOLUTE COUNT (BEAKER) (test 0.02 K/ L 0.00-0.20 yxlt=789) 0.00COMPREHENSIVE METABOLIC [id number] 08:56:00 Test Item Value Reference Range Comments TOTAL PROTEIN (BEAKER) 6.4 gm/dL 6.0-8.3 Specimen slightly (test xhsb=235) hemolyzed ALBUMIN (BEAKER) (test 3.3 g/dL 3.5-5.0 Specimen slightly oosi=7828) hemolyzed ALKALINE PHOSPHATASE 61 U/L 40-150 (BEAKER) (test hinm=787) BILIRUBIN TOTAL (BEAKER) 0.5 mg/dL 0.2-1.2 Specimen slightly (test vqtd=865) hemolyzed SODIUM (BEAKER) (test 135 meq/L 136-145 rqaj=484) POTASSIUM (BEAKER) (test 4.6 meq/L 3.5-5.1 Specimen slightly bjlw=306) hemolyzed CHLORIDE (BEAKER) (test 106 meq/L 98-107 ipbx=444) CO2 (BEAKER) (test 17 meq/L 22-29 yrfp=898) BLOOD UREA NITROGEN 10 mg/dL 7-21 (BEAKER) (test uopm=512) CREATININE (BEAKER) (test 0.80 mg/dL 0.57-1.25 Specimen slightly scnw=080) hemolyzed GLUCOSE RANDOM (BEAKER) 97 mg/dL 70-105 (test qnod=115) CALCIUM (BEAKER) (test 8.6 mg/dL 8.4-10.2 ntcz=590) AST (SGOT) (BEAKER) (test 37 U/L 5-34 Specimen slightly frpe=117) hemolyzed ALT (SGPT) (BEAKER) (test 20 U/L 6-55 Specimen slightly ztat=013) hemolyzed EGFR (BEAKER) (test 96 mL/min/1.73 sq m ESTIMATED GFR IS NOT ilrv=8336) ACCURATE CREATININE CLEARANCE IN PREDICTING GLOMERULAR FILTRATION RATE. ESTIMATED GFR IS NOT APPLICABLE FOR DIALYSIS PATIENTS. POCT-GLUCOSE [id number] 05:58:00 Test Item Value Reference Range Comments POC-GLUCOSE METER (BEAKER) 96 mg/dL 70-110 TESTED AT [address] (test gbls=2513) [place] [id number] POCT-GLUCOSE [id number] 00:23:00 Test Item Value Reference Range Comments POC-GLUCOSE METER (BEAKER) 110 mg/dL 70-110 TESTED AT [address] (test vewo=6406) [place] [address] POCT-GLUCOSE [id number] 17:48:00 Test Item Value Reference Range Comments POC-GLUCOSE METER (BEAKER) 100 mg/dL 70-110 TESTED AT [address] (test eksz=9052) [place] [address] POCT-GLUCOSE [id number] 12:09:00 Test Item Value Reference Range Comments POC-GLUCOSE METER (BEAKER) 103 mg/dL 70-110 TESTED AT [address] (test brfw=7803) [place] [address] URINE [id number] 08:43:00 Test Item Value Reference Range Comments CULTURE (BEAKER) (test tppo=2555) No growth BASIC METABOLIC [id number] 06:59:00 Test Item Value Reference Range Comments SODIUM (BEAKER) (test 139 meq/L 136-145 dzdv=696) POTASSIUM (BEAKER) (test 4.0 meq/L 3.5-5.1 qcbc=710) CHLORIDE (BEAKER) (test 107 meq/L 98-107 wete=805) CO2 (BEAKER) (test 23 meq/L 22-29 past=471) BLOOD UREA NITROGEN 9 mg/dL 7-21 (BEAKER) (test frhk=180) CREATININE (BEAKER) (test 0.79 mg/dL 0.57-1.25 ozjc=424) GLUCOSE RANDOM (BEAKER) 111 mg/dL 70-105 (test choq=722) CALCIUM (BEAKER) (test 8.6 mg/dL 8.4-10.2 xsal=867) EGFR (BEAKER) (test 97 mL/min/1.73 sq m ESTIMATED GFR IS NOT hwtf=0041) ACCURATE CREATININE CLEARANCE IN PREDICTING GLOMERULAR FILTRATION RATE. ESTIMATED GFR IS NOT APPLICABLE FOR DIALYSIS PATIENTS. POCT-GLUCOSE [id number] 06:02:00 Test Item Value Reference Range Comments POC-GLUCOSE METER (BEAKER) 102 mg/dL 70-[address] [facility] [address] (test hvmm=8779) [place] [address] PHENYTOIN LEVEL, [id number] 05:51:00 Test Item Value Reference Range Comments PHENYTOIN (DILANTIN) (BEAKER) (test mlyn=060) 7.3 ug/mL 10.0-20.0 CBC W/PLT COUNT & AUTO [id number] 05:41:00 Test Item Value Reference Range Comments WHITE BLOOD CELL COUNT (BEAKER) (test uetb=576) 4.9 K/ L 4.0-10.0 RED BLOOD CELL COUNT (BEAKER) (test ggsl=915) 3.61 M/ L 4.20-5.80 HEMOGLOBIN (BEAKER) (test zrvd=717) 11.5 GM/DL 13.0-16.8 HEMATOCRIT (BEAKER) (test ahdq=868) 31.7 % 40.0-50.0 MEAN CORPUSCULAR VOLUME (BEAKER) (test damk=580) 87.9 fL 82.0-98.0 MEAN CORPUSCULAR HEMOGLOBIN (BEAKER) (test 31.8 pg 27.0-33.0 ofpb=327) MEAN CORPUSCULAR HEMOGLOBIN CONC (BEAKER) (test 36.2 GM/DL 32.0-36.0 ofyj=166) RED CELL DISTRIBUTION WIDTH (BEAKER) (test 13.1 % 10.3-14.2 xevg=449) PLATELET COUNT (BEAKER) (test zron=486) 200 K/CU MM 150-430 MEAN PLATELET VOLUME (BEAKER) (test yyib=501) 6.7 fL 6.5-10.5 NUCLEATED RED BLOOD CELLS (BEAKER) (test 0 /100 WBC 0-0 vunp=562) NEUTROPHILS RELATIVE PERCENT (BEAKER) (test 75 % vvhc=840) LYMPHOCYTES RELATIVE PERCENT (BEAKER) (test 10 % kwgl=642) MONOCYTES RELATIVE PERCENT (BEAKER) (test 10 % srfe=004) EOSINOPHILS RELATIVE PERCENT (BEAKER) (test 5 % hsig=604) BASOPHILS RELATIVE PERCENT (BEAKER) (test 0 % cabz=681) NEUTROPHILS ABSOLUTE COUNT (BEAKER) (test 3.69 K/ L 1.80-8.00 rkgr=061) LYMPHOCYTES ABSOLUTE COUNT (BEAKER) (test 0.52 K/ L 1.48-4.50 yfye=423) MONOCYTES ABSOLUTE COUNT (BEAKER) (test 0.50 K/ L 0.00-1.30 flzk=904) EOSINOPHILS ABSOLUTE COUNT (BEAKER) (test 0.23 K/ L 0.00-0.50 fnnc=409) BASOPHILS ABSOLUTE COUNT (BEAKER) (test 0.01 K/ L 0.00-0.20 wqhb=539) 0.00POCT-GLUCOSE [id number] 03:20:00 Test Item Value Reference Range Comments POC-GLUCOSE METER (BEAKER) 121 mg/dL 70-110 TESTED AT [address] (test hwth=0844) [place] [address] POCT-GLUCOSE [id number] 18:47:00 Test Item Value Reference Range Comments POC-GLUCOSE METER (BEAKER) 116 mg/dL 70-110 TESTED AT [address] (test ctwq=0669) [place] [address] PLATELET AGGREGATION: FUNCTION [id number] 13:09:00 Test Item Value Reference Range Comments WEAK ADP RESULT(BEAKER) (test 100 % 60-91 tiwg=4036) PLATELET FUNCTION SCREEN 60-100% indicates normal INTERP (BEAKER) (test platelet function yadn=9402) [id number] (BEAKER) Justin Goel MD (electronic (test lwzf=6971) signature) PLATELET COUNT AGG (BEAKER) 181 K/CU MM 150-430 (test mtxa=6445) PHENYTOIN LEVEL, [id number] 13:01:00 Test Item Value Reference Range Comments PHENYTOIN (DILANTIN) (BEAKER) (test ozoq=759) 8.6 ug/mL 10.0-20.0 POCT-GLUCOSE [id number] 12:17:00 Test Item Value Reference Range Comments POC-GLUCOSE METER (BEAKER) 103 mg/dL 70-110 TESTED AT [address] (test krue=1891) [place] [address] POCT-GLUCOSE [id number] 06:29:00 Test Item Value Reference Range Comments POC-GLUCOSE METER (BEAKER) 93 mg/dL 70-[address] [facility] [address] (test ctpp=5180) [facility] [address] [id number] 05:36:00 Test Item Value Reference Range Comments MAGNESIUM (BEAKER) (test jndv=129) 1.7 mg/dL 1.6-2.6 BASIC METABOLIC [id number] 05:36:00 Test Item Value Reference Range Comments SODIUM (BEAKER) (test 136 meq/L 136-145 jqzz=059) POTASSIUM (BEAKER) (test 3.9 meq/L 3.5-5.1 ffvg=636) CHLORIDE (BEAKER) (test 105 meq/L 98-107 rhfo=082) CO2 (BEAKER) (test 18 meq/L 22-29 wjdt=408) BLOOD UREA NITROGEN 11 mg/dL 7-21 (BEAKER) (test sohy=447) CREATININE (BEAKER) (test 0.80 mg/dL 0.57-1.25 tdlv=227) GLUCOSE RANDOM (BEAKER) 87 mg/dL 70-105 (test imsd=227) CALCIUM (BEAKER) (test 8.7 mg/dL 8.4-10.2 wsff=056) EGFR (BEAKER) (test 96 mL/min/1.73 sq m ESTIMATED GFR IS NOT pjtv=8143) ACCURATE CREATININE CLEARANCE IN PREDICTING GLOMERULAR FILTRATION RATE. ESTIMATED GFR IS NOT APPLICABLE FOR DIALYSIS PATIENTS. CBC W/PLT COUNT & AUTO [id number] 05:22:00 Test Item Value Reference Range Comments WHITE BLOOD CELL COUNT (BEAKER) (test sxpl=129) 5.3 K/ L 4.0-10.0 RED BLOOD CELL COUNT (BEAKER) (test ppzd=544) 3.69 M/ L 4.20-5.80 HEMOGLOBIN (BEAKER) (test vpxh=494) 11.6 GM/DL 13.0-16.8 HEMATOCRIT (BEAKER) (test qblg=046) 33.4 % 40.0-50.0 MEAN CORPUSCULAR VOLUME (BEAKER) (test xpiq=187) 90.6 fL 82.0-98.0 MEAN CORPUSCULAR HEMOGLOBIN (BEAKER) (test 31.4 pg 27.0-33.0 heaj=583) MEAN CORPUSCULAR HEMOGLOBIN CONC (BEAKER) (test 34.6 GM/DL 32.0-36.0 pazk=966) RED CELL DISTRIBUTION WIDTH (BEAKER) (test 11.9 % 10.3-14.2 qcqy=492) PLATELET COUNT (BEAKER) (test dlgr=389) 164 K/CU MM 150-430 MEAN PLATELET VOLUME (BEAKER) (test swyt=541) 7.3 fL 6.5-10.5 NUCLEATED RED BLOOD CELLS (BEAKER) (test 0 /100 WBC 0-0 ionf=605) NEUTROPHILS RELATIVE PERCENT (BEAKER) (test 76 % drlx=455) LYMPHOCYTES RELATIVE PERCENT (BEAKER) (test 11 % qapy=219) MONOCYTES RELATIVE PERCENT (BEAKER) (test 9 % cngj=764) EOSINOPHILS RELATIVE PERCENT (BEAKER) (test 5 % jnrf=316) BASOPHILS RELATIVE PERCENT (BEAKER) (test 0 % nxed=627) NEUTROPHILS ABSOLUTE COUNT (BEAKER) (test 4.02 K/ L 1.80-8.00 qyjb=740) LYMPHOCYTES ABSOLUTE COUNT (BEAKER) (test 0.57 K/ L 1.48-4.50 dcml=365) MONOCYTES ABSOLUTE COUNT (BEAKER) (test 0.48 K/ L 0.00-1.30 raus=101) EOSINOPHILS ABSOLUTE COUNT (BEAKER) (test 0.24 K/ L 0.00-0.50 unyf=026) BASOPHILS ABSOLUTE COUNT (BEAKER) (test 0.01 K/ L 0.00-0.20 kijq=492) 0.00POCT-GLUCOSE [id number] 00:30:00 Test Item Value Reference Range Comments POC-GLUCOSE METER (BEAKER) 97 mg/dL 70-110 TESTED AT [address] (test qfcv=4436) [place] [id number] POCT-GLUCOSE [id number] 18:12:00 Test Item Value Reference Range Comments POC-GLUCOSE METER (BEAKER) 97 mg/dL 70-110 TESTED AT [address] (test zgvq=9294) [place] [id number] PLATELET AGGREGATION: FUNCTION [id number] 13:04:00 Test Item Value Reference Range Comments WEAK ADP RESULT(BEAKER) (test 100 % 60-91 prjz=0311) PLATELET FUNCTION SCREEN 60-100% indicates normal INTERP (BEAKER) (test platelet function hodm=1032) [id number] (BEAKER) Justin Goel MD (electronic (test udnv=4950) signature) PLATELET COUNT AGG (BEAKER) 142 K/CU MM 150-430 (test nwlu=5445) POCT-GLUCOSE [id number] 12:12:00 Test Item Value Reference Range Comments POC-GLUCOSE METER (BEAKER) 98 mg/dL 70-[address] [facility] [address] [facility] (test pbgz=6657) [facility] [address] [id number] 10:53:00 Test Item Value Reference Range Comments D-DIMER QUANTITATIVE (BEAKER) (test zqky=001) 2.83 MG/L FEU <0.50 Intended Use: The [...] exclusion of thrombosis is within 95-100% range.THROMBIN [id number] 10:51:00 Test Item Value Reference Range Comments THROMBIN TIME (BEAKER) (test nwmf=791) 15.0 secs 13.8-20.0 [id number] 10:50:00 Test Item Value Reference Range Comments FIBRINOGEN LEVEL (BEAKER) (test oqma=133) 462 mg/dl 225-434 URINALYSIS W/ [id number] 09:54:00 Test Item Value Reference Range Comments COLOR (BEAKER) (test edma=163) Yellow CLARITY (BEAKER) (test fdcp=435) Cloudy SPECIFIC GRAVITY UA (BEAKER) (test iaxn=408) 1.017 1.001-1.035 PH UA (BEAKER) (test gfcf=599) 5.0 5.0-8.0 PROTEIN UA (BEAKER) (test jqzq=472) 20 mg/dL Negative GLUCOSE UA (BEAKER) (test lckf=332) Negative Negative KETONES UA (BEAKER) (test jkmo=979) 60 mg/dL Negative BILIRUBIN UA (BEAKER) (test hrwj=311) Negative Negative BLOOD UA (BEAKER) (test fcjz=976) Small Negative NITRITE UA (BEAKER) (test majp=704) Negative Negative LEUKOCYTE ESTERASE UA (BEAKER) (test tatp=242) Large Negative UROBILINOGEN UA (BEAKER) (test fljw=422) 0.2 mg/dL 0.2-1.0 RBC UA (BEAKER) (test iylj=487) 5 /HPF WBC UA (BEAKER) (test tywk=460) 55 /HPF BACTERIA (BEAKER) (test ieoi=192) Moderate MUCUS (BEAKER) (test phqr=2048) Occasional SQUAMOUS EPITHELIAL (BEAKER) (test mwvr=734) < /HPF HYALINE CASTS (BEAKER) (test vecz=433) 1 /LPF URIC ACID CRYSTALS (BEAKER) (test nmgq=0425) Occasional SOURCE(BEAKER) (test pxxx=1274) Urine, [place] CBC W/PLT COUNT & AUTO [id number] 09:17:00 Test Item Value Reference Range Comments WHITE BLOOD CELL COUNT (BEAKER) (test zvoe=620) 6.3 K/ L 4.0-10.0 RED BLOOD CELL COUNT (BEAKER) (test chel=511) 3.63 M/ L 4.20-5.80 HEMOGLOBIN (BEAKER) (test ewaz=742) 11.3 GM/DL 13.0-16.8 HEMATOCRIT (BEAKER) (test pskn=249) 32.9 % 40.0-50.0 MEAN CORPUSCULAR VOLUME (BEAKER) (test rxnz=597) 90.6 fL 82.0-98.0 MEAN CORPUSCULAR HEMOGLOBIN (BEAKER) (test 31.0 pg 27.0-33.0 mgkg=055) MEAN CORPUSCULAR HEMOGLOBIN CONC (BEAKER) (test 34.3 GM/DL 32.0-36.0 iouc=576) RED CELL DISTRIBUTION WIDTH (BEAKER) (test 12.0 % 10.3-14.2 xydp=029) PLATELET COUNT (BEAKER) (test xnxj=040) 133 K/CU MM 150-430 MEAN PLATELET VOLUME (BEAKER) (test mvxd=456) 7.2 fL 6.5-10.5 NUCLEATED RED BLOOD CELLS (BEAKER) (test 0 /100 WBC 0-0 vodo=791) NEUTROPHILS RELATIVE PERCENT (BEAKER) (test 76 % ctzy=767) LYMPHOCYTES RELATIVE PERCENT (BEAKER) (test 9 % wick=725) MONOCYTES RELATIVE PERCENT (BEAKER) (test 10 % rlzy=214) EOSINOPHILS RELATIVE PERCENT (BEAKER) (test 4 % uvux=118) BASOPHILS RELATIVE PERCENT (BEAKER) (test 1 % obez=991) NEUTROPHILS ABSOLUTE COUNT (BEAKER) (test 4.78 K/ L 1.80-8.00 cuek=246) LYMPHOCYTES ABSOLUTE COUNT (BEAKER) (test 0.58 K/ L 1.48-4.50 kydu=282) MONOCYTES ABSOLUTE COUNT (BEAKER) (test 0.60 K/ L 0.00-1.30 rays=416) EOSINOPHILS ABSOLUTE COUNT (BEAKER) (test 0.26 K/ L 0.00-0.50 ejeh=506) BASOPHILS ABSOLUTE COUNT (BEAKER) (test 0.04 K/ L 0.00-0.20 vadu=458) 0.00PHENYTOIN LEVEL, [id number] 05:46:00 Test Item Value Reference Range Comments PHENYTOIN (DILANTIN) (BEAKER) (test fccx=454) 1.1 ug/mL 10.0-20.0 BASIC METABOLIC [id number] 05:39:00 Test Item Value Reference Range Comments SODIUM (BEAKER) (test 134 meq/L 136-145 khme=439) POTASSIUM (BEAKER) (test 3.8 meq/L 3.5-5.1 rkqo=230) CHLORIDE (BEAKER) (test 105 meq/L 98-107 lcaj=739) CO2 (BEAKER) (test 20 meq/L 22-29 urxt=901) BLOOD UREA NITROGEN 11 mg/dL 7-21 (BEAKER) (test klic=000) CREATININE (BEAKER) (test 0.74 mg/dL 0.57-1.25 nowz=754) GLUCOSE RANDOM (BEAKER) 98 mg/dL 70-105 (test hxst=213) CALCIUM (BEAKER) (test 8.5 mg/dL 8.4-10.2 npxn=610) EGFR (BEAKER) (test 105 mL/min/1.73 sq m ESTIMATED GFR IS NOT tajc=0136) ACCURATE CREATININE CLEARANCE IN PREDICTING GLOMERULAR FILTRATION RATE. ESTIMATED GFR IS NOT APPLICABLE FOR DIALYSIS PATIENTS. POCT-GLUCOSE [id number] 00:45:00 Test Item Value Reference Range Comments POC-GLUCOSE METER (BEAKER) 93 mg/dL 70-110 TESTED AT [address] (test nysc=8024) [facility] [id number] POCT-GLUCOSE [id number] 18:47:00 Test Item Value Reference Range Comments POC-GLUCOSE METER (BEAKER) 113 mg/dL 70-110 TESTED AT [address] (test pxuu=6907) [facility] [id number] POCT-GLUCOSE [id number] 12:26:00 Test Item Value Reference Range Comments POC-GLUCOSE METER (BEAKER) 125 mg/dL 70-110 TESTED AT [address] (test tije=7656) [facility] [address] POCT-GLUCOSE [id number] 06:19:00 Test Item Value Reference Range Comments POC-GLUCOSE METER (BEAKER) 128 mg/dL 70-110 TESTED AT [address] (test ztwt=7544) [facility] [address] COMPREHENSIVE METABOLIC [id number] 04:41:00 Test Item Value Reference Range Comments TOTAL PROTEIN (BEAKER) 6.1 gm/dL 6.0-8.3 (test suom=892) ALBUMIN (BEAKER) (test 3.4 g/dL 3.5-5.0 ttwj=3172) ALKALINE PHOSPHATASE 56 U/L 40-150 (BEAKER) (test bjiu=872) BILIRUBIN TOTAL (BEAKER) 0.7 mg/dL 0.2-1.2 (test vpak=927) SODIUM (BEAKER) (test 137 meq/L 136-145 rkgz=710) POTASSIUM (BEAKER) (test 4.3 meq/L 3.5-5.1 zyni=929) CHLORIDE (BEAKER) (test 110 meq/L 98-107 cyna=904) CO2 (BEAKER) (test 15 meq/L 22-29 dtcv=209) BLOOD UREA NITROGEN 14 mg/dL 7-21 (BEAKER) (test kzzt=817) CREATININE (BEAKER) (test 0.88 mg/dL 0.57-1.25 ywyg=337) GLUCOSE RANDOM (BEAKER) 122 mg/dL 70-105 (test jgwa=781) CALCIUM (BEAKER) (test 8.9 mg/dL 8.4-10.2 xdwa=266) AST (SGOT) (BEAKER) (test 37 U/L 5-34 diah=279) ALT (SGPT) (BEAKER) (test 19 U/L 6-55 cwht=436) EGFR (BEAKER) (test 86 mL/min/1.73 sq m ESTIMATED GFR IS NOT gemp=5189) ACCURATE CREATININE CLEARANCE IN PREDICTING GLOMERULAR FILTRATION RATE. ESTIMATED GFR IS NOT APPLICABLE FOR DIALYSIS PATIENTS. CBC W/PLT COUNT & AUTO [id number] 04:33:00 Test Item Value Reference Range Comments WHITE BLOOD CELL COUNT (BEAKER) (test blrj=883) 6.4 K/ L 4.0-10.0 RED BLOOD CELL COUNT (BEAKER) (test xlmu=542) 4.07 M/ L 4.20-5.80 HEMOGLOBIN (BEAKER) (test wxzz=363) 12.3 GM/DL 13.0-16.8 HEMATOCRIT (BEAKER) (test kscv=463) 36.7 % 40.0-50.0 MEAN CORPUSCULAR VOLUME (BEAKER) (test svqb=983) 90.1 fL 82.0-98.0 MEAN CORPUSCULAR HEMOGLOBIN (BEAKER) (test 30.3 pg 27.0-33.0 vpgt=708) MEAN CORPUSCULAR HEMOGLOBIN CONC (BEAKER) (test 33.7 GM/DL 32.0-36.0 tawp=042) RED CELL DISTRIBUTION WIDTH (BEAKER) (test 12.1 % 10.3-14.2 yeie=661) PLATELET COUNT (BEAKER) (test amdk=624) 152 K/CU MM 150-430 MEAN PLATELET VOLUME (BEAKER) (test cjyb=141) 7.0 fL 6.5-10.5 NUCLEATED RED BLOOD CELLS (BEAKER) (test 0 /100 WBC 0-0 xbbj=756) NEUTROPHILS RELATIVE PERCENT (BEAKER) (test 82 % wbev=316) LYMPHOCYTES RELATIVE PERCENT (BEAKER) (test 6 % lcns=674) MONOCYTES RELATIVE PERCENT (BEAKER) (test 11 % lbju=318) EOSINOPHILS RELATIVE PERCENT (BEAKER) (test 1 % rfst=677) BASOPHILS RELATIVE PERCENT (BEAKER) (test 0 % vxdb=740) NEUTROPHILS ABSOLUTE COUNT (BEAKER) (test 5.23 K/ L 1.80-8.00 ezfi=940) LYMPHOCYTES ABSOLUTE COUNT (BEAKER) (test 0.39 K/ L 1.48-4.50 gado=039) MONOCYTES ABSOLUTE COUNT (BEAKER) (test 0.68 K/ L 0.00-1.30 zrwb=648) EOSINOPHILS ABSOLUTE COUNT (BEAKER) (test 0.04 K/ L 0.00-0.50 imgt=611) BASOPHILS ABSOLUTE COUNT (BEAKER) (test 0.02 K/ L 0.00-0.20 cewq=624) 0.00POCT-GLUCOSE [id number] 00:50:00 Test Item Value Reference Range Comments POC-GLUCOSE METER (BEAKER) 117 mg/dL 70-110 TESTED AT [address] (test qqdb=1238) [place] [id number] POCT-GLUCOSE [id number] 17:18:00 Test Item Value Reference Range Comments POC-GLUCOSE METER (BEAKER) 101 mg/dL 70-110 TESTED AT [address] (test dpkz=1328) [place] [id number] POCT-GLUCOSE [id number] 12:59:00 Test Item Value Reference Range Comments POC-GLUCOSE METER (BEAKER) 80 mg/dL 70-110 TESTED AT [address] (test wjeg=1402) [facility] [address] POCT-GLUCOSE [id number] 12:07:00 Test Item Value Reference Range Comments POC-GLUCOSE METER (BEAKER) 76 mg/dL 70-110 TESTED AT [address] (test posx=7153) [place] [id number] POCT-GLUCOSE [id number] 06:18:00 Test Item Value Reference Range Comments POC-GLUCOSE METER (BEAKER) 86 mg/dL 70-110 TESTED AT [address] (test nhow=3914) [place] [id number] 06:06:00 Test Item Value Reference Range Comments PHOSPHORUS (BEAKER) (test aflz=863) 2.8 mg/dL 2.3-4.7 Once on admission and Daily AM afterwardsOnce on admission and Daily AM [id number] 06:06:00 Test Item Value Reference Range Comments MAGNESIUM (BEAKER) (test cqsq=022) 1.8 mg/dL 1.6-2.6 Once on admission and Daily AM afterwardsOnce on admission and Daily AM afterwardsCOMPREHENSIVE METABOLIC [id number] 06:06:00 Test Item Value Reference Range Comments TOTAL PROTEIN (BEAKER) 6.5 gm/dL 6.0-8.3 (test cxxe=264) ALBUMIN (BEAKER) (test 3.6 g/dL 3.5-5.0 qaxb=9209) ALKALINE PHOSPHATASE 56 U/L 40-150 (BEAKER) (test dpez=315) BILIRUBIN TOTAL (BEAKER) 0.8 mg/dL 0.2-1.2 (test nakx=565) SODIUM (BEAKER) (test 137 meq/L 136-145 ljth=358) POTASSIUM (BEAKER) (test 4.6 meq/L 3.5-5.1 hlbs=128) CHLORIDE (BEAKER) (test 107 meq/L 98-107 pwkr=760) CO2 (BEAKER) (test 21 meq/L 22-29 lkfn=728) BLOOD UREA NITROGEN 16 mg/dL 7-21 (BEAKER) (test wsja=984) CREATININE (BEAKER) (test 0.88 mg/dL 0.57-1.25 iowb=832) GLUCOSE RANDOM (BEAKER) 86 mg/dL 70-105 (test frqw=303) CALCIUM (BEAKER) (test 8.8 mg/dL 8.4-10.2 bdme=863) AST (SGOT) (BEAKER) (test 27 U/L 5-34 pztr=769) ALT (SGPT) (BEAKER) (test 15 U/L 6-55 wgby=519) EGFR (BEAKER) (test 86 mL/min/1.73 sq m ESTIMATED GFR IS NOT yrey=7002) ACCURATE CREATININE CLEARANCE IN PREDICTING GLOMERULAR FILTRATION RATE. ESTIMATED GFR IS NOT APPLICABLE FOR DIALYSIS PATIENTS. Once on admission and Daily AM afterwardsOnce on admission and Daily AM afterwardsCBC W/PLT COUNT & AUTO [id number] 06:01:00 Test Item Value Reference Range Comments WHITE BLOOD CELL COUNT (BEAKER) (test xuxu=463) 4.8 K/ L 4.0-10.0 RED BLOOD CELL COUNT (BEAKER) (test ywhf=988) 4.26 M/ L 4.20-5.80 HEMOGLOBIN (BEAKER) (test hoco=727) 12.8 GM/DL 13.0-16.8 HEMATOCRIT (BEAKER) (test jqmq=535) 37.8 % 40.0-50.0 MEAN CORPUSCULAR VOLUME (BEAKER) (test pzpx=057) 88.6 fL 82.0-98.0 MEAN CORPUSCULAR HEMOGLOBIN (BEAKER) (test 29.9 pg 27.0-33.0 aqbc=244) MEAN CORPUSCULAR HEMOGLOBIN CONC (BEAKER) (test 33.8 GM/DL 32.0-36.0 rcze=709) RED CELL DISTRIBUTION WIDTH (BEAKER) (test 12.9 % 10.3-14.2 lowm=759) PLATELET COUNT (BEAKER) (test xoup=834) 142 K/CU MM 150-430 MEAN PLATELET VOLUME (BEAKER) (test zxuz=605) 7.1 fL 6.5-10.5 NUCLEATED RED BLOOD CELLS (BEAKER) (test 0 /100 WBC 0-0 wwnn=749) NEUTROPHILS RELATIVE PERCENT (BEAKER) (test 79 % urba=790) LYMPHOCYTES RELATIVE PERCENT (BEAKER) (test 10 % bvhn=126) MONOCYTES RELATIVE PERCENT (BEAKER) (test 9 % nday=449) EOSINOPHILS RELATIVE PERCENT (BEAKER) (test 2 % wyld=237) BASOPHILS RELATIVE PERCENT (BEAKER) (test 0 % acni=233) NEUTROPHILS ABSOLUTE COUNT (BEAKER) (test 3.74 K/ L 1.80-8.00 gfjw=337) LYMPHOCYTES ABSOLUTE COUNT (BEAKER) (test 0.48 K/ L 1.48-4.50 wgav=888) MONOCYTES ABSOLUTE COUNT (BEAKER) (test 0.44 K/ L 0.00-1.30 mxju=718) EOSINOPHILS ABSOLUTE COUNT (BEAKER) (test 0.08 K/ L 0.00-0.50 yrhk=459) BASOPHILS ABSOLUTE COUNT (BEAKER) (test 0.01 K/ L 0.00-0.20 mdct=350) [id number] 01:40:00 Test Item Value Reference Range Comments POTASSIUM (BEAKER) (test ycer=358) 4.0 meq/L 3.5-5.1 [id number] 01:40:00 Test Item Value Reference Range Comments SODIUM (BEAKER) (test usnl=282) 138 meq/L 136-145 POCT-GLUCOSE [id number] 00:19:00 Test Item Value Reference Range Comments POC-GLUCOSE METER (BEAKER) 89 mg/dL 70-[address] [facility] [address] (test vpgg=3061) [place] [address] [id number] 21:37:00 Test Item Value Reference Range Comments SODIUM (BEAKER) (test dtwu=359) 137 meq/L 136-145 [id number] 19:02:00 Test Item Value Reference Range Comments PARTIAL THROMBOPLASTIN TIME (BEAKER) (test 24.9 seconds 22.5-36.0 xovg=800) PROTHROMBIN [id number] 19:01:00 Test Item Value Reference Range Comments PROTIME (BEAKER) (test nrnt=618) 13.8 seconds 11.7-14.7 INR (BEAKER) (test rqbt=369) 1.1 <=5.9 RECOMMENDED COUMADIN/WARFARIN INR THERAPY RANGESSTANDARD DOSE: 2.0 - 3.0 Includes: PROPHYLAXIS forvenous thrombosis, systemic embolization; TREATMENT for venous thrombosis and/or pulmonary embolus.HIGH RISK: Target INR is 2.5-3.5 for patients with mechanical heart valves.[id number] 19:00:00 Test Item Value Reference Range Comments POTASSIUM (BEAKER) (test svtm=625) 4.0 meq/L 3.5-5.1 [id number] 19:00:00 Test Item Value Reference Range Comments SODIUM (BEAKER) (test caet=657) 137 meq/L 136-145 HEPATIC FUNCTION [id number] 19:00:00 Test Item Value Reference Range Comments TOTAL PROTEIN (BEAKER) (test hgeu=771) 7.0 gm/dL 6.0-8.3 ALBUMIN (BEAKER) (test xpyz=2902) 3.9 g/dL 3.5-5.0 BILIRUBIN TOTAL (BEAKER) (test znjg=700) 0.8 mg/dL 0.2-1.2 BILIRUBIN DIRECT (BEAKER) (test utuq=250) 0.3 mg/dL 0.1-0.5 ALKALINE PHOSPHATASE (BEAKER) (test nech=024) 60 U/L 40-150 AST (SGOT) (BEAKER) (test fpbq=996) 22 U/L 5-34 ALT (SGPT) (BEAKER) (test nbqr=271) 16 U/L 6-55 POCT-GLUCOSE [id number] 18:42:00 Test Item Value Reference Range Comments POC-GLUCOSE METER (BEAKER) 96 mg/dL 70-[address] [facility] [address] (test uwdq=7970) [facility] [address] PLATELET AGGREGATION: FUNCTION [id number] 11:40:00 Test Item Value Reference Range Comments WEAK ADP RESULT(BEAKER) (test 50 % 60-91 rdbp=1181) PLATELET FUNCTION SCREEN 50-59% indicates mild platelet INTERP (BEAKER) (test dysfunction gigv=8873) [id number]-VSPUAPGTSNP-[id number] Justin Goel MD (electronic (BEAKER) (test yare=7541) signature) PLATELET COUNT AGG (BEAKER) 124 K/CU MM 150-430 (test gwis=3159) [id number] 05:44:00 Test Item Value Reference Range Comments PHOSPHORUS (BEAKER) (test mneg=705) 3.1 mg/dL 2.3-4.7 [id number] 05:44:00 Test Item Value Reference Range Comments MAGNESIUM (BEAKER) (test ampm=234) 1.9 mg/dL 1.6-2.6 COMPREHENSIVE METABOLIC [id number] 05:44:00 Test Item Value Reference Range Comments TOTAL PROTEIN (BEAKER) 6.6 gm/dL 6.0-8.3 (test zowd=461) ALBUMIN (BEAKER) (test 3.7 g/dL 3.5-5.0 cjhc=9529) ALKALINE PHOSPHATASE 56 U/L 40-150 (BEAKER) (test hxvu=719) BILIRUBIN TOTAL (BEAKER) 0.5 mg/dL 0.2-1.2 (test heea=464) SODIUM (BEAKER) (test 137 meq/L 136-145 zrgx=272) POTASSIUM (BEAKER) (test 4.0 meq/L 3.5-5.1 chik=493) CHLORIDE (BEAKER) (test 107 meq/L 98-107 fdvq=923) CO2 (BEAKER) (test 21 meq/L 22-29 ddli=763) BLOOD UREA NITROGEN 20 mg/dL 7-21 (BEAKER) (test sqbr=118) CREATININE (BEAKER) (test 0.94 mg/dL 0.57-1.25 pzxp=366) GLUCOSE RANDOM (BEAKER) 106 mg/dL 70-105 (test yycl=804) CALCIUM (BEAKER) (test 8.8 mg/dL 8.4-10.2 sqtt=608) AST (SGOT) (BEAKER) (test 16 U/L 5-34 gdza=296) ALT (SGPT) (BEAKER) (test 12 U/L 6-55 rlbq=101) EGFR (BEAKER) (test 80 mL/min/1.73 sq m ESTIMATED GFR IS NOT ylix=6931) ACCURATE CREATININE CLEARANCE IN PREDICTING GLOMERULAR FILTRATION RATE. ESTIMATED GFR IS NOT APPLICABLE FOR DIALYSIS PATIENTS. CBC W/PLT COUNT & AUTO [id number] 05:29:00 Test Item Value Reference Range Comments WHITE BLOOD CELL COUNT (BEAKER) (test temx=035) 3.5 K/ L 4.0-10.0 RED BLOOD CELL COUNT (BEAKER) (test fpxg=433) 4.21 M/ L 4.20-5.80 HEMOGLOBIN (BEAKER) (test apnj=010) 12.8 GM/DL 13.0-16.8 HEMATOCRIT (BEAKER) (test ihme=275) 37.2 % 40.0-50.0 MEAN CORPUSCULAR VOLUME (BEAKER) (test fuzp=633) 88.2 fL 82.0-98.0 MEAN CORPUSCULAR HEMOGLOBIN (BEAKER) (test 30.3 pg 27.0-33.0 uvwt=992) MEAN CORPUSCULAR HEMOGLOBIN CONC (BEAKER) (test 34.3 GM/DL 32.0-36.0 sufy=651) RED CELL DISTRIBUTION WIDTH (BEAKER) (test 12.9 % 10.3-14.2 mfmk=814) PLATELET COUNT (BEAKER) (test dikp=463) 128 K/CU MM 150-430 MEAN PLATELET VOLUME (BEAKER) (test kmfg=083) 7.1 fL 6.5-10.5 NUCLEATED RED BLOOD CELLS (BEAKER) (test 0 /100 WBC 0-0 wtvd=705) NEUTROPHILS RELATIVE PERCENT (BEAKER) (test 70 % fjlb=207) LYMPHOCYTES RELATIVE PERCENT (BEAKER) (test 16 % nxpt=103) MONOCYTES RELATIVE PERCENT (BEAKER) (test 10 % uqgf=765) EOSINOPHILS RELATIVE PERCENT (BEAKER) (test 5 % dbox=057) BASOPHILS RELATIVE PERCENT (BEAKER) (test 0 % khge=684) NEUTROPHILS ABSOLUTE COUNT (BEAKER) (test 2.42 K/ L 1.80-8.00 hvdg=818) LYMPHOCYTES ABSOLUTE COUNT (BEAKER) (test 0.54 K/ L 1.48-4.50 msgs=568) MONOCYTES ABSOLUTE COUNT (BEAKER) (test 0.33 K/ L 0.00-1.30 zvhv=355) EOSINOPHILS ABSOLUTE COUNT (BEAKER) (test 0.17 K/ L 0.00-0.50 nyjk=579) BASOPHILS ABSOLUTE COUNT (BEAKER) (test 0.02 K/ L 0.00-0.20 asik=779) 0.00URINALYSIS W/ REFLEX URINE [id number] 22:30:00 Test Item Value Reference Range Comments COLOR (BEAKER) (test niug=300) Yellow CLARITY (BEAKER) (test tvxt=952) Clear SPECIFIC GRAVITY UA (BEAKER) (test omfp=466) 1.050 1.001-1.035 PH UA (BEAKER) (test dtas=967) 6.0 5.0-8.0 PROTEIN UA (BEAKER) (test cdap=329) 20 mg/dL Negative GLUCOSE UA (BEAKER) (test nplt=298) Negative Negative KETONES UA (BEAKER) (test yzvl=797) 40 mg/dL Negative BILIRUBIN UA (BEAKER) (test bzbv=030) Negative Negative BLOOD UA (BEAKER) (test dzsn=877) Negative Negative NITRITE UA (BEAKER) (test yvfh=135) Negative Negative LEUKOCYTE ESTERASE UA (BEAKER) (test ttcc=457) Negative Negative UROBILINOGEN UA (BEAKER) (test cqrj=893) 2.0 mg/dL 0.2-1.0 RBC UA (BEAKER) (test ayej=801) /HPF None Seen WBC UA (BEAKER) (test elfz=967) /HPF None Seen SOURCE(BEAKER) (test juqj=3059) TSH/FREE T4 IF [id number] 14:45:00 Test Item Value Reference Range Comments THYROID STIMULATING HORMONE (BEAKER) (test 2.66 uIU/mL 0.35-4.94 svqy=606) VITAMIN B12 AND [id number] 14:45:00 Test Item Value Reference Range Comments VITAMIN B12 (BEAKER) (test nejt=103) 815 pg/mL 213-816 FOLATE (BEAKER) (test bpwb=633) 15.4 ng/mL >=7.0 Effective 07/06/2014: Folate Reference Range ChangeNew: >=7.0 Previous: & gt;=5.4VALPROIC ACID LEVEL, [id number] 14:18:00 Test Item Value Reference Range Comments VALPROIC ACID TOTAL (BEAKER) (test ijfx=824) 24 ug/mL 50-100 Therapeutic range for some clinical conditions may be >100 ug/[id number] 14:02:00 Test Item Value Reference Range Comments AMMONIA (BEAKER) (test xlog=732) 35 mol/L 18-72 BLOOD GAS, [id number] 13:50:00 Test Item Value Reference Range Comments PH ARTERIAL (BEAKER) (test tsni=885) 7.47 7.35-7.45 PCO2 ARTERIAL (BEAKER) (test fvkh=918) 35 mmHg 35-45 PO2 ARTERIAL (BEAKER) (test ksfc=335) 78 mmHg 80-90 O2 SATURATION ARTERIAL (BEAKER) (test zega=466) 96.3 % 96.0-97.0 HCO3 ARTERIAL (BEAKER) (test imho=377) 25 mmol/L 21-29 BASE EXCESS ARTERIAL (BEAKER) (test nybj=265) 1.2 mmol/L -2.0-3.0 PATIENT TEMPERATURE (BEAKER) (test xorh=8049) 36.9 C FIO2 (BEAKER) (test bscn=2288) 21.0 % [id number] 10:49:00 Test Item Value Reference Range Comments PROTIME (BEAKER) (test ulgb=229) 14.7 seconds 11.7-14.7 INR (BEAKER) (test soor=169) 1.2 <=5.9 PARTIAL THROMBOPLASTIN TIME (BEAKER) (test 31.8 seconds 22.5-36.0 uqau=377) RECOMMENDED COUMADIN/WARFARIN INR THERAPY RANGESSTANDARD DOSE: 2.0 - 3.0 Includes: PROPHYLAXIS forvenous thrombosis, systemic embolization; TREATMENT for venous thrombosis and/or pulmonary embolus.HIGH RISK: Target INR is 2.5-3.5 for patients with mechanical heart valves.PROTHROMBIN [id number] 10:48: 00 Test Item Value Reference Range Comments PROTIME (BEAKER) (test yonv=512) 14.7 seconds 11.7-14.7 INR (BEAKER) (test itnf=325) 1.2 <=5.9 RECOMMENDED COUMADIN/WARFARIN INR THERAPY RANGESSTANDARD DOSE: 2.0 - 3.0 Includes: PROPHYLAXIS forvenous thrombosis, systemic embolization; TREATMENT for venous thrombosis and/or pulmonary embolus.HIGH RISK: Target INR is 2.5-3.5 for patients with mechanical heart valves.POCT-GLUCOSE [id number] 07:47:00 Test Item Value Reference Range Comments POC-GLUCOSE METER (BEAKER) 95 mg/dL 70-[address] [facility] [address] (test gour=0676) [facility] [address] BASIC METABOLIC [id number] 04:59:00 Test Item Value Reference Range Comments SODIUM (BEAKER) (test 140 meq/L 136-145 fbho=247) POTASSIUM (BEAKER) (test 4.1 meq/L 3.5-5.1 elbz=408) CHLORIDE (BEAKER) (test 109 meq/L 98-107 kfvh=492) CO2 (BEAKER) (test 22 meq/L 22-29 dybf=161) BLOOD UREA NITROGEN 19 mg/dL 7-21 (BEAKER) (test oeng=648) CREATININE (BEAKER) (test 0.95 mg/dL 0.57-1.25 yqqu=116) GLUCOSE RANDOM (BEAKER) 97 mg/dL 70-105 (test nfuz=002) CALCIUM (BEAKER) (test 8.2 mg/dL 8.4-10.2 bdzh=526) EGFR (BEAKER) (test 79 mL/min/1.73 sq m ESTIMATED GFR IS NOT ssvw=8976) ACCURATE CREATININE CLEARANCE IN PREDICTING GLOMERULAR FILTRATION RATE. ESTIMATED GFR IS NOT APPLICABLE FOR DIALYSIS PATIENTS. CBC W/PLT COUNT & AUTO [id number] 04:49:00 Test Item Value Reference Range Comments WHITE BLOOD CELL COUNT (BEAKER) (test qlkg=458) 6.3 K/ L 4.0-10.0 RED BLOOD CELL COUNT (BEAKER) (test opvp=685) 3.77 M/ L 4.20-5.80 HEMOGLOBIN (BEAKER) (test vfye=743) 11.1 GM/DL 13.0-16.8 HEMATOCRIT (BEAKER) (test mwia=058) 34.8 % 40.0-50.0 MEAN CORPUSCULAR VOLUME (BEAKER) (test vqjh=976) 92.4 fL 82.0-98.0 MEAN CORPUSCULAR HEMOGLOBIN (BEAKER) (test 29.4 pg 27.0-33.0 trer=282) MEAN CORPUSCULAR HEMOGLOBIN CONC (BEAKER) (test 31.8 GM/DL 32.0-36.0 qepf=357) RED CELL DISTRIBUTION WIDTH (BEAKER) (test 12.3 % 10.3-14.2 hkfq=258) PLATELET COUNT (BEAKER) (test vvqm=819) 156 K/CU MM 150-430 MEAN PLATELET VOLUME (BEAKER) (test kmcp=715) 6.9 fL 6.5-10.5 NUCLEATED RED BLOOD CELLS (BEAKER) (test 0 /100 WBC 0-0 gdhz=357) NEUTROPHILS RELATIVE PERCENT (BEAKER) (test 75 % kcnc=881) LYMPHOCYTES RELATIVE PERCENT (BEAKER) (test 16 % xlfs=223) MONOCYTES RELATIVE PERCENT (BEAKER) (test 9 % cazz=172) EOSINOPHILS RELATIVE PERCENT (BEAKER) (test 1 % ezug=491) BASOPHILS RELATIVE PERCENT (BEAKER) (test 0 % qvlj=155) NEUTROPHILS ABSOLUTE COUNT (BEAKER) (test 4.68 K/ L 1.80-8.00 zxcg=573) LYMPHOCYTES ABSOLUTE COUNT (BEAKER) (test 0.98 K/ L 1.48-4.50 cpjk=538) MONOCYTES ABSOLUTE COUNT (BEAKER) (test 0.56 K/ L 0.00-1.30 nfhd=714) EOSINOPHILS ABSOLUTE COUNT (BEAKER) (test 0.04 K/ L 0.00-0.50 kdzz=804) BASOPHILS ABSOLUTE COUNT (BEAKER) (test 0.02 K/ L 0.00-0.20 wjig=821) 0.00POCT-GLUCOSE [id number] 04:02:00 Test Item Value Reference Range Comments POC-GLUCOSE METER (BEAKER) 114 mg/dL 70-[address] [facility] [address] (test poxt=0861) [facility] [address] POCT-GLUCOSE [id number] 07:17:00 Test Item Value Reference Range Comments POC-GLUCOSE METER (BEAKER) 134 mg/dL 70-[address] [facility] [address] [facility] (test gskk=3674) [facility] [address] BASIC METABOLIC [id number] 03:52:00 Test Item Value Reference Range Comments SODIUM (BEAKER) (test 137 meq/L 136-145 ydex=199) POTASSIUM (BEAKER) (test 4.7 meq/L 3.5-5.1 Specimen slightly iysr=473) hemolyzed CHLORIDE (BEAKER) (test 110 meq/L 98-107 bmat=971) CO2 (BEAKER) (test 20 meq/L 22-29 njab=188) BLOOD UREA NITROGEN 21 mg/dL 7-21 (BEAKER) (test cpda=476) CREATININE (BEAKER) (test 0.97 mg/dL 0.57-1.25 Specimen slightly xoiv=106) hemolyzed GLUCOSE RANDOM (BEAKER) 140 mg/dL 70-105 (test ults=487) CALCIUM (BEAKER) (test 7.7 mg/dL 8.4-10.2 ukqz=950) EGFR (BEAKER) (test 77 mL/min/1.73 sq m ESTIMATED GFR IS NOT dgbw=6999) ACCURATE CREATININE CLEARANCE IN PREDICTING GLOMERULAR FILTRATION RATE. ESTIMATED GFR IS NOT APPLICABLE FOR DIALYSIS PATIENTS. [id number] 03:34:00 Test Item Value Reference Range Comments MAGNESIUM (BEAKER) (test 2.1 mg/dL 1.6-2.6 Specimen slightly hemolyzed dksd=906) [id number] 03:34:00 Test Item Value Reference Range Comments PHOSPHORUS (BEAKER) (test 2.5 mg/dL 2.3-4.7 Specimen slightly hemolyzed jrjr=334) CBC W/PLT COUNT & AUTO [id number] 03:20:00 Test Item Value Reference Range Comments WHITE BLOOD CELL COUNT (BEAKER) (test ccpk=478) 7.8 K/ L 4.0-10.0 RED BLOOD CELL COUNT (BEAKER) (test ujtb=058) 3.73 M/ L 4.20-5.80 HEMOGLOBIN (BEAKER) (test xtyd=969) 11.7 GM/DL 13.0-16.8 HEMATOCRIT (BEAKER) (test dlgo=271) 34.4 % 40.0-50.0 MEAN CORPUSCULAR VOLUME (BEAKER) (test oqal=875) 92.3 fL 82.0-98.0 MEAN CORPUSCULAR HEMOGLOBIN (BEAKER) (test 31.5 pg 27.0-33.0 vlsv=634) MEAN CORPUSCULAR HEMOGLOBIN CONC (BEAKER) (test 34.1 GM/DL 32.0-36.0 nhed=894) RED CELL DISTRIBUTION WIDTH (BEAKER) (test 13.3 % 10.3-14.2 ifhg=856) PLATELET COUNT (BEAKER) (test lljt=199) 158 K/CU MM 150-430 MEAN PLATELET VOLUME (BEAKER) (test vvrs=976) 6.9 fL 6.5-10.5 NUCLEATED RED BLOOD CELLS (BEAKER) (test 0 /100 WBC 0-0 dsmn=890) NEUTROPHILS RELATIVE PERCENT (BEAKER) (test 90 % ghtg=813) LYMPHOCYTES RELATIVE PERCENT (BEAKER) (test 4 % ggva=184) MONOCYTES RELATIVE PERCENT (BEAKER) (test 6 % riqx=038) EOSINOPHILS RELATIVE PERCENT (BEAKER) (test 0 % awze=323) BASOPHILS RELATIVE PERCENT (BEAKER) (test 0 % eeih=888) NEUTROPHILS ABSOLUTE COUNT (BEAKER) (test 6.98 K/ L 1.80-8.00 qxyn=851) LYMPHOCYTES ABSOLUTE COUNT (BEAKER) (test 0.30 K/ L 1.48-4.50 xjtf=192) MONOCYTES ABSOLUTE COUNT (BEAKER) (test 0.46 K/ L 0.00-1.30 vsow=404) EOSINOPHILS ABSOLUTE COUNT (BEAKER) (test 0.01 K/ L 0.00-0.50 onlz=577) BASOPHILS ABSOLUTE COUNT (BEAKER) (test 0.00 K/ L 0.00-0.20 adkd=192) 0.00POCT-GLUCOSE [id number] 02:04:00 Test Item Value Reference Range Comments POC-GLUCOSE METER (BEAKER) 126 mg/dL 70-110 TESTED AT [address] (test lugl=0191) [facility] [address] POCT-GLUCOSE [id number] 00:58:00 Test Item Value Reference Range Comments POC-GLUCOSE METER (BEAKER) 145 mg/dL 70-110 TESTED AT [address] (test pnvf=0651) [facility] [address] POCT-GLUCOSE [id number] 18:36:00 Test Item Value Reference Range Comments POC-GLUCOSE METER (BEAKER) 127 mg/dL 70-[address] [facility] [address] [facility] (test wvpx=7324) [facility] [address] PLATELET AGGREGATION: FUNCTION [id number] 09:33:00 Test Item Value Reference Range Comments WEAK ADP RESULT(BEAKER) (test 53 % 60-91 nqjq=0801) PLATELET FUNCTION SCREEN 50-59% indicates mild platelet INTERP (BEAKER) (test dysfunction qnqq=4632) [id number] Teja Ferreira M.D. (electonic (BEAKER) (test lrpd=2804) signature) PLATELET COUNT AGG (BEAKER) 120 K/CU MM 150-430 (test ikqd=1819) [id number] 04:59:00 Test Item Value Reference Range Comments MAGNESIUM (BEAKER) (test 2.1 mg/dL 1.6-2.6 Specimen slightly hemolyzed rzwl=521) Once on admission and Daily AM afterwardsOnce on admission and Daily AM afterwardsOnce on admission and Daily AM [id number] 04:59:00 Test Item Value Reference Range Comments PHOSPHORUS (BEAKER) (test 2.7 mg/dL 2.3-4.7 Specimen slightly hemolyzed kcqz=592) Once on admission and Daily AM afterwardsOnce on admission and Daily AM afterwardsOnce on admission and Daily AM afterwardsBASIC METABOLIC [id number] 04:59:00 Test Item Value Reference Range Comments SODIUM (BEAKER) (test 140 meq/L 136-145 eqjj=483) POTASSIUM (BEAKER) (test 4.5 meq/L 3.5-5.1 Specimen slightly ibfh=129) hemolyzed CHLORIDE (BEAKER) (test 108 meq/L 98-107 emdw=376) CO2 (BEAKER) (test 22 meq/L 22-29 nbbm=689) BLOOD UREA NITROGEN 17 mg/dL 7-21 (BEAKER) (test smlc=798) CREATININE (BEAKER) (test 0.93 mg/dL 0.57-1.25 Specimen slightly ctzx=269) hemolyzed GLUCOSE RANDOM (BEAKER) 82 mg/dL 70-105 (test inor=767) CALCIUM (BEAKER) (test 8.2 mg/dL 8.4-10.2 npto=443) EGFR (BEAKER) (test 81 mL/min/1.73 sq m ESTIMATED GFR IS NOT bpty=2902) ACCURATE CREATININE CLEARANCE IN PREDICTING GLOMERULAR FILTRATION RATE. ESTIMATED GFR IS NOT APPLICABLE FOR DIALYSIS PATIENTS. Once on admission and Daily AM afterwardsOnce on admission and Daily AM afterwardsOnce on admission and Daily AM afterwardsHEPATIC FUNCTION [id number] 23:24:00 Test Item Value Reference Range Comments TOTAL PROTEIN (BEAKER) (test 5.4 gm/dL 6.0-8.3 Specimen slightly hemolyzed czre=031) ALBUMIN (BEAKER) (test 3.0 g/dL 3.5-5.0 Specimen slightly hemolyzed otjc=1488) BILIRUBIN TOTAL (BEAKER) (test 0.4 mg/dL 0.2-1.2 Specimen slightly hemolyzed rcst=495) BILIRUBIN DIRECT (BEAKER) (test 0.2 mg/dL 0.1-0.5 Specimen slightly hemolyzed rpit=016) ALKALINE PHOSPHATASE (BEAKER) 41 U/L 40-150 (test dpen=613) AST (SGOT) (BEAKER) (test 15 U/L 5-34 Specimen slightly hemolyzed vnwl=077) ALT (SGPT) (BEAKER) (test 10 U/L 6-55 Specimen slightly hemolyzed bviq=745) [id number] 22:52:00 Test Item Value Reference Range Comments PROTIME (BEAKER) (test xpxu=689) 14.3 seconds 11.7-14.7 INR (BEAKER) (test dzwu=819) 1.1 <=5.9 PARTIAL THROMBOPLASTIN TIME (BEAKER) (test 32.5 seconds 22.5-36.0 yhyi=587) RECOMMENDED COUMADIN/WARFARIN INR THERAPY RANGESSTANDARD DOSE: 2.0 - 3.0 Includes: PROPHYLAXIS forvenous thrombosis, systemic embolization; TREATMENT for venous thrombosis and/or pulmonary embolus.HIGH RISK: Target INR is 2.5-3.5 for patients with mechanical heart valves.VALPROIC ACID LEVEL, [id number] 20:34:00 Test Item Value Reference Range Comments VALPROIC ACID TOTAL (BEAKER) (test dnui=056) 19 ug/mL 50-100 Therapeutic range for some clinical conditions may be >100 ug/mLCREATINE KINASE (CK), TOTAL AND [id number] 10:02:00 Test Item Value Reference Range Comments CREATINE KINASE TOTAL (BEAKER) (test gkiw=208) 106 U/L 29-200 CREATINE KINASE-MB (BEAKER) (test zhge=056) 1.4 ng/mL 0.0-6.6 CREATINE KINASE-MB INDEX (BEAKER) (test osqj=087) 1.3 % Effective 07/06/2014: CK-MB Reference Range ChangeNew: 0.0-6.6 Previous: 0.0- 4.9CK-MB Reference Range:<6.7 Normal6.7-10.0 Borderline>10.0 AbnormalTROPONIN [id number] 10:00:00 Test Item Value Reference Range Comments TROPONIN I (BEAKER) (test jyyx=463) < ng/mL 0.00-0.03 Effective 07/06/2014: Reference Range [...] and persistent tachyarrhythmia.CREATINE KINASE (CK), TOTAL AND [id number] 00:05:00 Test Item Value Reference Range Comments CREATINE KINASE TOTAL (BEAKER) (test jnyj=489) 26 U/L 29-200 CREATINE KINASE-MB (BEAKER) (test xudp=586) 0.5 ng/mL 0.0-6.6 CREATINE KINASE-MB INDEX (BEAKER) (test gwew=530) 1.9 % Effective 07/06/2014: CK-MB Reference Range ChangeNew: 0.0-6.6 Previous: 0.0- 4.9CK-MB Reference Range:<6.7 Normal6.7-10.0 Borderline>10.0 AbnormalTROPONIN [id number] 00:05:00 Test Item Value Reference Range Comments TROPONIN I (BEAKER) (test olzw=065) 0.01 ng/mL 0.00-0.03 Effective 07/06/2014: Reference Range [...] and persistent tachyarrhythmia.CREATINE KINASE (CK), TOTAL AND [id number] 18:06:00 Test Item Value Reference Range Comments CREATINE KINASE TOTAL (JOSEAKER) (test eoqe=728) 38 U/L 29-200 CREATINE KINASE-MB (BEAKER) (test grbz=692) 0.6 ng/mL 0.0-6.6 CREATINE KINASE-MB INDEX (BEAKER) (test wnof=427) 1.6 % Effective 07/06/2014: CK-MB Reference Range ChangeNew: 0.0-6.6 Previous: 0.0- 4.9CK-MB Reference Range:<6.7 Normal6.7-10.0 Borderline>10.0 AbnormalTROPONIN [id number] 18:06:00 Test Item Value Reference Range Comments TROPONIN I (BEAKER) (test zxkp=294) < ng/mL 0.00-0.03 Effective 07/06/2014: Reference Range [...] acute neurological disease, and persistent tachyarrhythmia.COMPREHENSIVE METABOLIC [id number] 18:03:00 Test Item Value Reference Range Comments TOTAL PROTEIN (BEAKER) 7.3 gm/dL 6.0-8.3 Specimen slightly (test xvca=432) hemolyzed ALBUMIN (BEAKER) (test 4.0 g/dL 3.5-5.0 Specimen slightly whpe=8823) hemolyzed ALKALINE PHOSPHATASE 68 U/L 40-150 (BEAKER) (test mevv=002) BILIRUBIN TOTAL (BEAKER) 0.6 mg/dL 0.2-1.2 Specimen slightly (test jjwb=597) hemolyzed SODIUM (BEAKER) (test 137 meq/L 136-145 lyab=821) POTASSIUM (BEAKER) (test 4.4 meq/L 3.5-5.1 Specimen slightly fkrk=889) hemolyzed CHLORIDE (BEAKER) (test 103 meq/L 98-107 kaxk=101) CO2 (BEAKER) (test 22 meq/L 22-29 herk=884) BLOOD UREA NITROGEN 16 mg/dL 7-21 (BEAKER) (test gyhb=345) CREATININE (BEAKER) (test 1.01 mg/dL 0.57-1.25 Specimen slightly zgtu=503) hemolyzed GLUCOSE RANDOM (BEAKER) 114 mg/dL 70-105 (test arpu=265) CALCIUM (BEAKER) (test 9.3 mg/dL 8.4-10.2 mifj=148) AST (SGOT) (BEAKER) (test 20 U/L 5-34 Specimen slightly odwg=902) hemolyzed ALT (SGPT) (BEAKER) (test 17 U/L 6-55 Specimen slightly lokf=337) hemolyzed EGFR (BEAKER) (test 73 mL/min/1.73 sq m ESTIMATED GFR IS NOT xqxj=8022) ACCURATE CREATININE CLEARANCE IN PREDICTING GLOMERULAR FILTRATION RATE. ESTIMATED GFR IS NOT APPLICABLE FOR DIALYSIS PATIENTS. CBC W/PLT COUNT & AUTO [id number] 17:43:00 Test Item Value Reference Range Comments WHITE BLOOD CELL COUNT (BEAKER) (test vlhb=799) 5.7 K/ L 4.0-10.0 RED BLOOD CELL COUNT (BEAKER) (test nsyx=385) 4.59 M/ L 4.20-5.80 HEMOGLOBIN (BEAKER) (test xlzp=043) 14.4 GM/DL 13.0-16.8 HEMATOCRIT (BEAKER) (test avku=760) 41.7 % 40.0-50.0 MEAN CORPUSCULAR VOLUME (BEAKER) (test zepi=186) 90.8 fL 82.0-98.0 MEAN CORPUSCULAR HEMOGLOBIN (BEAKER) (test 31.3 pg 27.0-33.0 taef=310) MEAN CORPUSCULAR HEMOGLOBIN CONC (BEAKER) (test 34.5 GM/DL 32.0-36.0 uktn=487) RED CELL DISTRIBUTION WIDTH (BEAKER) (test 12.0 % 10.3-14.2 lsqo=176) PLATELET COUNT (BEAKER) (test ztdl=317) 164 K/CU MM 150-430 MEAN PLATELET VOLUME (BEAKER) (test tqlk=105) 7.2 fL 6.5-10.5 NUCLEATED RED BLOOD CELLS (BEAKER) (test 0 /100 WBC 0-0 tbhl=775) NEUTROPHILS RELATIVE PERCENT (BEAKER) (test 77 % okwz=643) LYMPHOCYTES RELATIVE PERCENT (BEAKER) (test 12 % nzeo=547) MONOCYTES RELATIVE PERCENT (BEAKER) (test 9 % fovu=883) EOSINOPHILS RELATIVE PERCENT (BEAKER) (test 2 % xrmv=547) BASOPHILS RELATIVE PERCENT (BEAKER) (test 1 % ozxf=091) NEUTROPHILS ABSOLUTE COUNT (BEAKER) (test 4.40 K/ L 1.80-8.00 hubj=303) LYMPHOCYTES ABSOLUTE COUNT (BEAKER) (test 0.68 K/ L 1.48-4.50 fuyh=586) MONOCYTES ABSOLUTE COUNT (BEAKER) (test 0.50 K/ L 0.00-1.30 pmaw=714) EOSINOPHILS ABSOLUTE COUNT (BEAKER) (test 0.12 K/ L 0.00-0.50 ujpl=222) BASOPHILS ABSOLUTE COUNT (BEAKER) (test 0.03 K/ L 0.00-0.20 xipj=179) [id number] 05:44:00 Test Item Value Reference Range Comments MAGNESIUM (BEAKER) (test vogm=995) 2.0 mg/dL 1.6-2.6 [id number] 11:00:00 Test Item Value Reference Range Comments RPR SCREEN (BEAKER) (test dirx=709) Nonreactive Nonreactive HEMOGLOBIN [id number] 10:35:00 Test Item Value Reference Range Comments HEMOGLOBIN A1C (BEAKER) (test rouf=309) 5.1 % 4.3-6.1 CBC W/PLT COUNT & AUTO [id number] 07:10:00 Test Item Value Reference Range Comments WHITE BLOOD CELL COUNT (BEAKER) (test ufrh=389) 4.5 K/ L 4.0-10.0 RED BLOOD CELL COUNT (BEAKER) (test vahz=993) 4.53 M/ L 4.20-5.80 HEMOGLOBIN (BEAKER) (test srgc=691) 13.6 GM/DL 13.0-16.8 HEMATOCRIT (BEAKER) (test vgby=083) 41.1 % 40.0-50.0 MEAN CORPUSCULAR VOLUME (BEAKER) (test cmwd=698) 90.7 fL 82.0-98.0 MEAN CORPUSCULAR HEMOGLOBIN (BEAKER) (test 30.1 pg 27.0-33.0 poth=482) MEAN CORPUSCULAR HEMOGLOBIN CONC (BEAKER) (test 33.1 GM/DL 32.0-36.0 ohqa=932) RED CELL DISTRIBUTION WIDTH (BEAKER) (test 12.1 % 10.3-14.2 mxju=073) PLATELET COUNT (BEAKER) (test wpmb=087) 169 K/CU MM 150-430 MEAN PLATELET VOLUME (BEAKER) (test tdns=010) 7.1 fL 6.5-10.5 NUCLEATED RED BLOOD CELLS (BEAKER) (test 0 /100 WBC 0-0 wpez=656) NEUTROPHILS RELATIVE PERCENT (BEAKER) (test 72 % zgqw=923) LYMPHOCYTES RELATIVE PERCENT (BEAKER) (test 17 % xtbi=245) MONOCYTES RELATIVE PERCENT (BEAKER) (test 8 % erwr=190) EOSINOPHILS RELATIVE PERCENT (BEAKER) (test 3 % bfzt=971) BASOPHILS RELATIVE PERCENT (BEAKER) (test 1 % tyft=260) NEUTROPHILS ABSOLUTE COUNT (BEAKER) (test 3.20 K/ L 1.80-8.00 jpvd=235) LYMPHOCYTES ABSOLUTE COUNT (BEAKER) (test 0.76 K/ L 1.48-4.50 nqdo=639) MONOCYTES ABSOLUTE COUNT (BEAKER) (test 0.35 K/ L 0.00-1.30 tfog=572) EOSINOPHILS ABSOLUTE COUNT (BEAKER) (test 0.12 K/ L 0.00-0.50 dxam=702) BASOPHILS ABSOLUTE COUNT (BEAKER) (test 0.03 K/ L 0.00-0.20 mvdu=249) 0.00VITAMIN [id number] 06:57:00 Test Item Value Reference Range Comments VITAMIN B12 (BEAKER) (test jxkq=399) 584 pg/mL 213-816 TSH/FREE T4 IF [id number] 06:57:00 Test Item Value Reference Range Comments THYROID STIMULATING HORMONE (BEAKER) (test 0.98 uIU/mL 0.35-4.94 yume=398) [id number] 06:15:00 Test Item Value Reference Range Comments MAGNESIUM (BEAKER) (test bkba=969) 2.1 mg/dL 1.6-2.6 COMPREHENSIVE METABOLIC [id number] 06:15:00 Test Item Value Reference Range Comments TOTAL PROTEIN (BEAKER) 6.8 gm/dL 6.0-8.3 (test juqi=925) ALBUMIN (BEAKER) (test 3.9 g/dL 3.5-5.0 pgra=5323) ALKALINE PHOSPHATASE 64 U/L 40-150 (BEAKER) (test fcyu=716) BILIRUBIN TOTAL (BEAKER) 0.6 mg/dL 0.2-1.2 (test soec=392) SODIUM (BEAKER) (test 136 meq/L 136-145 tbyi=933) POTASSIUM (BEAKER) (test 4.0 meq/L 3.5-5.1 bxiw=950) CHLORIDE (BEAKER) (test 104 meq/L 98-107 nmqo=092) CO2 (BEAKER) (test 21 meq/L 22-29 vxfa=215) BLOOD UREA NITROGEN 14 mg/dL 7-21 (BEAKER) (test vssa=096) CREATININE (BEAKER) (test 0.98 mg/dL 0.57-1.25 onfq=096) GLUCOSE RANDOM (BEAKER) 101 mg/dL 70-105 (test eklu=715) CALCIUM (BEAKER) (test 8.9 mg/dL 8.4-10.2 ljsb=660) AST (SGOT) (BEAKER) (test 15 U/L 5-34 cwzr=650) ALT (SGPT) (BEAKER) (test 15 U/L 6-55 btgw=871) EGFR (BEAKER) (test 76 mL/min/1.73 sq m ESTIMATED GFR IS NOT eero=4880) ACCURATE CREATININE CLEARANCE IN PREDICTING GLOMERULAR FILTRATION RATE. ESTIMATED GFR IS NOT APPLICABLE FOR DIALYSIS PATIENTS. BASIC METABOLIC [id number] 06:15:00 Test Item Value Reference Range Comments SODIUM (BEAKER) (test 136 meq/L 136-145 cyyo=131) POTASSIUM (BEAKER) (test 4.0 meq/L 3.5-5.1 hkdm=766) CHLORIDE (BEAKER) (test 104 meq/L 98-107 mpuf=753) CO2 (BEAKER) (test 21 meq/L 22-29 stbv=921) BLOOD UREA NITROGEN 14 mg/dL 7-21 (BEAKER) (test lybw=895) CREATININE (BEAKER) (test 0.98 mg/dL 0.57-1.25 ueex=215) GLUCOSE RANDOM (BEAKER) 101 mg/dL 70-105 (test salp=661) CALCIUM (BEAKER) (test 8.9 mg/dL 8.4-10.2 cklj=473) EGFR (BEAKER) (test 76 mL/min/1.73 sq m ESTIMATED GFR IS NOT qxjp=7004) ACCURATE CREATININE CLEARANCE IN PREDICTING GLOMERULAR FILTRATION RATE. ESTIMATED GFR IS NOT APPLICABLE FOR DIALYSIS PATIENTS. LIPID [id number] 06:15:00 Test Item Value Reference Range Comments TRIGLYCERIDES (BEAKER) (test yppc=419) 114 mg/dL CHOLESTEROL (BEAKER) (test zdhj=233) 161 mg/dL HDL CHOLESTEROL (BEAKER) (test zykg=385) 36 mg/dL LDL CHOLESTEROL CALCULATED (BEAKER) (test 102 mg/dL fxyn=314) Triglyceride Reference Range: Low Risk <150 Borderline 150- 199 High Risk 200-499 Very High Risk >=500Cholesterol Reference Range: Low Risk <200 Borderline 200-239 High Risk > 240HDL Cholesterol Reference Range: Low Risk >=60 High Risk <40LDL Cholesterol Reference Range: Optimal <100 Near Optimal 100-129 Borderline 130-159 High 160-189 Very High >=190BASIC METABOLIC [id number] 05:07:00 Test Item Value Reference Range Comments SODIUM (BEAKER) (test 137 meq/L 136-145 dwuf=192) POTASSIUM (BEAKER) (test 4.2 meq/L 3.5-5.1 tzrl=572) CHLORIDE (BEAKER) (test 105 meq/L 98-107 kqyn=469) CO2 (BEAKER) (test 22 meq/L 22-29 kqir=703) BLOOD UREA NITROGEN 13 mg/dL 7-21 (BEAKER) (test iqis=307) CREATININE (BEAKER) (test 0.93 mg/dL 0.57-1.25 ubsy=000) GLUCOSE RANDOM (BEAKER) 102 mg/dL 70-105 (test tzds=996) CALCIUM (BEAKER) (test 9.3 mg/dL 8.4-10.2 koty=316) EGFR (BEAKER) (test 81 mL/min/1.73 sq m ESTIMATED GFR IS NOT iesm=1221) ACCURATE CREATININE CLEARANCE IN PREDICTING GLOMERULAR FILTRATION RATE. ESTIMATED GFR IS NOT APPLICABLE FOR DIALYSIS PATIENTS. CBC W/PLT COUNT & AUTO [id number] 05:00:00 Test Item Value Reference Range Comments WHITE BLOOD CELL COUNT (BEAKER) (test plik=080) 5.3 K/ L 4.0-10.0 RED BLOOD CELL COUNT (BEAKER) (test umsp=578) 4.52 M/ L 4.20-5.80 HEMOGLOBIN (BEAKER) (test bofd=153) 13.6 GM/DL 13.0-16.8 HEMATOCRIT (BEAKER) (test rtlr=055) 40.4 % 40.0-50.0 MEAN CORPUSCULAR VOLUME (BEAKER) (test ecde=699) 89.4 fL 82.0-98.0 MEAN CORPUSCULAR HEMOGLOBIN (BEAKER) (test 30.1 pg 27.0-33.0 nyxy=468) MEAN CORPUSCULAR HEMOGLOBIN CONC (BEAKER) (test 33.7 GM/DL 32.0-36.0 hhru=506) RED CELL DISTRIBUTION WIDTH (BEAKER) (test 12.1 % 10.3-14.2 qxdh=284) PLATELET COUNT (BEAKER) (test avsf=579) 157 K/CU MM 150-430 MEAN PLATELET VOLUME (BEAKER) (test hsie=022) 7.0 fL 6.5-10.5 NUCLEATED RED BLOOD CELLS (BEAKER) (test 0 /100 WBC 0-0 grky=719) NEUTROPHILS RELATIVE PERCENT (BEAKER) (test 78 % fryb=978) LYMPHOCYTES RELATIVE PERCENT (BEAKER) (test 11 % uszq=642) MONOCYTES RELATIVE PERCENT (BEAKER) (test 7 % klhh=290) EOSINOPHILS RELATIVE PERCENT (BEAKER) (test 3 % lyhf=164) BASOPHILS RELATIVE PERCENT (BEAKER) (test 0 % qmyu=363) NEUTROPHILS ABSOLUTE COUNT (BEAKER) (test 4.11 K/ L 1.80-8.00 paab=599) LYMPHOCYTES ABSOLUTE COUNT (BEAKER) (test 0.56 K/ L 1.48-4.50 heqy=636) MONOCYTES ABSOLUTE COUNT (BEAKER) (test 0.39 K/ L 0.00-1.30 aoag=149) EOSINOPHILS ABSOLUTE COUNT (BEAKER) (test 0.16 K/ L 0.00-0.50 msnl=932) BASOPHILS ABSOLUTE COUNT (BEAKER) (test 0.02 K/ L 0.00-0.20 rved=855) 0.00BASIC METABOLIC [id number] 19:13:00 Test Item Value Reference Range Comments SODIUM (BEAKER) (test 136 meq/L 136-145 bdwd=216) POTASSIUM (BEAKER) (test 3.7 meq/L 3.5-5.1 mhvr=262) CHLORIDE (BEAKER) (test 105 meq/L 98-107 wzdb=673) CO2 (BEAKER) (test 25 meq/L 22-29 tlau=394) BLOOD UREA NITROGEN 14 mg/dL 7-21 (BEAKER) (test fbgr=238) CREATININE (BEAKER) (test 0.93 mg/dL 0.57-1.25 veuw=800) GLUCOSE RANDOM (BEAKER) 147 mg/dL 70-105 (test rkql=863) CALCIUM (BEAKER) (test 9.2 mg/dL 8.4-10.2 bmlt=881) EGFR (BEAKER) (test 81 mL/min/1.73 sq m ESTIMATED GFR IS NOT vixg=7220) ACCURATE CREATININE CLEARANCE IN PREDICTING GLOMERULAR FILTRATION RATE. ESTIMATED GFR IS NOT APPLICABLE FOR DIALYSIS PATIENTS. CBC W/PLT COUNT & AUTO [id number] 19:08:00 Test Item Value Reference Range Comments WHITE BLOOD CELL COUNT (BEAKER) (test ruco=606) 5.3 K/ L 4.0-10.0 RED BLOOD CELL COUNT (BEAKER) (test yvso=447) 4.25 M/ L 4.20-5.80 HEMOGLOBIN (BEAKER) (test rwrg=861) 13.4 GM/DL 13.0-16.8 HEMATOCRIT (BEAKER) (test nelg=711) 37.7 % 40.0-50.0 MEAN CORPUSCULAR VOLUME (BEAKER) (test tskm=760) 88.7 fL 82.0-98.0 MEAN CORPUSCULAR HEMOGLOBIN (BEAKER) (test 31.5 pg 27.0-33.0 jyth=706) MEAN CORPUSCULAR HEMOGLOBIN CONC (BEAKER) (test 35.5 GM/DL 32.0-36.0 dafq=535) RED CELL DISTRIBUTION WIDTH (BEAKER) (test 11.9 % 10.3-14.2 eyht=563) PLATELET COUNT (BEAKER) (test avrl=217) 142 K/CU MM 150-430 MEAN PLATELET VOLUME (BEAKER) (test cloq=248) 6.7 fL 6.5-10.5 NUCLEATED RED BLOOD CELLS (BEAKER) (test 0 /100 WBC 0-0 fmvb=257) NEUTROPHILS RELATIVE PERCENT (BEAKER) (test 81 % mqss=511) LYMPHOCYTES RELATIVE PERCENT (BEAKER) (test 11 % kius=502) MONOCYTES RELATIVE PERCENT (BEAKER) (test 6 % igti=776) EOSINOPHILS RELATIVE PERCENT (BEAKER) (test 2 % mcyj=299) BASOPHILS RELATIVE PERCENT (BEAKER) (test 0 % cqye=388) NEUTROPHILS ABSOLUTE COUNT (BEAKER) (test 4.27 K/ L 1.80-8.00 tile=034) LYMPHOCYTES ABSOLUTE COUNT (BEAKER) (test 0.57 K/ L 1.48-4.50 whoj=855) MONOCYTES ABSOLUTE COUNT (BEAKER) (test 0.33 K/ L 0.00-1.30 nnfx=638) EOSINOPHILS ABSOLUTE COUNT (BEAKER) (test 0.11 K/ L 0.00-0.50 urxm=582) BASOPHILS ABSOLUTE COUNT (BEAKER) (test 0.02 K/ L 0.00-0.20 alpe=702) 0.00POCT-GLUCOSE [id number] 14:07:00 Test Item Value Reference Range Comments POC-GLUCOSE METER (BEAKER) 99 mg/dL 70-[address] [facility] [address] [facility] (test weak=7559) [facility] [address] POCT-GLUCOSE [id number] 13:05:00 Test Item Value Reference Range Comments POC-GLUCOSE METER (BEAKER) 115 mg/dL 70-110 TESTED AT [address] (test qisv=4767) [facility] [address] POCT-GLUCOSE [id number] 07:34:00 Test Item Value Reference Range Comments POC-GLUCOSE METER (BEAKER) 145 mg/dL 70-110 TESTED AT [place] [id number] [facility] (test ngki=5610) [facility] [address] [id number] 06:56:00 Test Item Value Reference Range Comments PHOSPHORUS (BEAKER) (test yffz=207) 3.3 mg/dL 2.3-4.7 [id number] 06:56:00 Test Item Value Reference Range Comments MAGNESIUM (BEAKER) (test cfxv=546) 1.9 mg/dL 1.6-2.6 BASIC METABOLIC [id number] 06:56:00 Test Item Value Reference Range Comments SODIUM (BEAKER) (test 137 meq/L 136-145 anyd=487) POTASSIUM (BEAKER) (test 4.2 meq/L 3.5-5.1 uiaw=529) CHLORIDE (BEAKER) (test 105 meq/L 98-107 hdjw=123) CO2 (BEAKER) (test 22 meq/L 22-29 zxlc=953) BLOOD UREA NITROGEN 15 mg/dL 7-21 (BEAKER) (test enns=325) CREATININE (BEAKER) (test 0.90 mg/dL 0.57-1.25 lqbi=328) GLUCOSE RANDOM (BEAKER) 100 mg/dL 70-105 (test jimz=802) CALCIUM (BEAKER) (test 8.9 mg/dL 8.4-10.2 jcpj=079) EGFR (BEAKER) (test 84 mL/min/1.73 sq m ESTIMATED GFR IS NOT rpcd=4540) ACCURATE CREATININE CLEARANCE IN PREDICTING GLOMERULAR FILTRATION RATE. ESTIMATED GFR IS NOT APPLICABLE FOR DIALYSIS PATIENTS. CBC W/PLT COUNT & AUTO [id number] 06:34:00 Test Item Value Reference Range Comments WHITE BLOOD CELL COUNT (BEAKER) (test hqtq=990) 4.2 K/ L 4.0-10.0 RED BLOOD CELL COUNT (BEAKER) (test dbmy=269) 4.24 M/ L 4.20-5.80 HEMOGLOBIN (BEAKER) (test mszv=994) 13.1 GM/DL 13.0-16.8 HEMATOCRIT (BEAKER) (test aibz=951) 37.7 % 40.0-50.0 MEAN CORPUSCULAR VOLUME (BEAKER) (test zkti=745) 88.7 fL 82.0-98.0 MEAN CORPUSCULAR HEMOGLOBIN (BEAKER) (test 30.9 pg 27.0-33.0 opgu=914) MEAN CORPUSCULAR HEMOGLOBIN CONC (BEAKER) (test 34.8 GM/DL 32.0-36.0 uyae=798) RED CELL DISTRIBUTION WIDTH (BEAKER) (test 13.2 % 10.3-14.2 wpez=882) PLATELET COUNT (BEAKER) (test tcoe=831) 130 K/CU MM 150-430 MEAN PLATELET VOLUME (BEAKER) (test pgud=872) 7.1 fL 6.5-10.5 NUCLEATED RED BLOOD CELLS (BEAKER) (test 0 /100 WBC 0-0 iohd=416) NEUTROPHILS RELATIVE PERCENT (BEAKER) (test 73 % oxgx=927) LYMPHOCYTES RELATIVE PERCENT (BEAKER) (test 16 % eugk=882) MONOCYTES RELATIVE PERCENT (BEAKER) (test 7 % dwnb=642) EOSINOPHILS RELATIVE PERCENT (BEAKER) (test 5 % qgks=136) BASOPHILS RELATIVE PERCENT (BEAKER) (test 0 % dkda=387) NEUTROPHILS ABSOLUTE COUNT (BEAKER) (test 3.06 K/ L 1.80-8.00 kbko=191) LYMPHOCYTES ABSOLUTE COUNT (BEAKER) (test 0.67 K/ L 1.48-4.50 hjwe=586) MONOCYTES ABSOLUTE COUNT (BEAKER) (test 0.28 K/ L 0.00-1.30 xtob=605) EOSINOPHILS ABSOLUTE COUNT (BEAKER) (test 0.21 K/ L 0.00-0.50 llif=429) BASOPHILS ABSOLUTE COUNT (BEAKER) (test 0.00 K/ L 0.00-0.20 pofn=629) [id number] 06:29:00 Test Item Value Reference Range Comments PARTIAL THROMBOPLASTIN TIME (BEAKER) (test 30.9 seconds 22.5-36.0 rnhh=070) PROTHROMBIN [id number] 06:28:00 Test Item Value Reference Range Comments PROTIME (BEAKER) (test ivbz=716) 14.0 seconds 11.7-14.7 INR (BEAKER) (test ifjp=965) 1.1 <=5.9 RECOMMENDED COUMADIN/WARFARIN INR THERAPY RANGESSTANDARD DOSE: 2.0 - 3.0 Includes: PROPHYLAXIS forvenous thrombosis, systemic embolization; TREATMENT for venous thrombosis and/or pulmonary embolus.HIGH RISK: Target INR is 2.5-3.5 for patients with mechanical heart valves.POCT-GLUCOSE [id number] 05:42:00 Test Item Value Reference Range Comments POC-GLUCOSE METER (BEAKER) 90 mg/dL 70-110 TESTED AT [address] (test aywm=6851) [place] [address] POCT-GLUCOSE [id number] 23:43:00 Test Item Value Reference Range Comments POC-GLUCOSE METER (BEAKER) 118 mg/dL 70-110 TESTED AT [address] (test xyij=9147) [place] [address] POCT-GLUCOSE [id number] 17:19:00 Test Item Value Reference Range Comments POC-GLUCOSE METER (BEAKER) 127 mg/dL 70-110 TESTED AT [address] (test soga=3477) [place] [id number] POCT-GLUCOSE [id number] 12:30:00 Test Item Value Reference Range Comments POC-GLUCOSE METER (BEAKER) 103 mg/dL 70-110 TESTED AT [address] (test fsgm=6920) [place] [id number] POCT-GLUCOSE [id number] 09:52:00 Test Item Value Reference Range Comments POC-GLUCOSE METER (BEAKER) 137 mg/dL 70-110 TESTED AT [address] (test gwqa=4662) [place] [address] CBC W/PLT COUNT & AUTO [id number] 06:43:00 Test Item Value Reference Range Comments WHITE BLOOD CELL COUNT (BEAKER) (test vcdf=523) 4.9 K/ L 4.0-10.0 RED BLOOD CELL COUNT (BEAKER) (test lnln=840) 4.36 M/ L 4.20-5.80 HEMOGLOBIN (BEAKER) (test hhrn=761) 13.2 GM/DL 13.0-16.8 HEMATOCRIT (BEAKER) (test gual=973) 39.1 % 40.0-50.0 MEAN CORPUSCULAR VOLUME (BEAKER) (test jgrl=578) 89.8 fL 82.0-98.0 MEAN CORPUSCULAR HEMOGLOBIN (BEAKER) (test 30.2 pg 27.0-33.0 wthf=435) MEAN CORPUSCULAR HEMOGLOBIN CONC (BEAKER) (test 33.7 GM/DL 32.0-36.0 xwhy=269) RED CELL DISTRIBUTION WIDTH (BEAKER) (test 12.0 % 10.3-14.2 vdgs=580) PLATELET COUNT (BEAKER) (test akhl=100) 143 K/CU MM 150-430 MEAN PLATELET VOLUME (BEAKER) (test vcxc=549) 6.9 fL 6.5-10.5 NUCLEATED RED BLOOD CELLS (BEAKER) (test 0 /100 WBC 0-0 mvbw=918) NEUTROPHILS RELATIVE PERCENT (BEAKER) (test 74 % xrlt=449) LYMPHOCYTES RELATIVE PERCENT (BEAKER) (test 16 % jigq=116) MONOCYTES RELATIVE PERCENT (BEAKER) (test 6 % eivk=383) EOSINOPHILS RELATIVE PERCENT (BEAKER) (test 4 % imbk=650) BASOPHILS RELATIVE PERCENT (BEAKER) (test 0 % rclq=558) NEUTROPHILS ABSOLUTE COUNT (BEAKER) (test 3.59 K/ L 1.80-8.00 atlv=372) LYMPHOCYTES ABSOLUTE COUNT (BEAKER) (test 0.78 K/ L 1.48-4.50 mwak=429) MONOCYTES ABSOLUTE COUNT (BEAKER) (test 0.30 K/ L 0.00-1.30 nyqa=675) EOSINOPHILS ABSOLUTE COUNT (BEAKER) (test 0.21 K/ L 0.00-0.50 bjnq=770) BASOPHILS ABSOLUTE COUNT (BEAKER) (test 0.01 K/ L 0.00-0.20 wxxg=305) [id number] 06:39:00 Test Item Value Reference Range Comments PHOSPHORUS (BEAKER) (test geje=405) 3.2 mg/dL 2.3-4.7 [id number] 06:39:00 Test Item Value Reference Range Comments MAGNESIUM (BEAKER) (test moel=153) 1.9 mg/dL 1.6-2.6 BASIC METABOLIC [id number] 06:39:00 Test Item Value Reference Range Comments SODIUM (BEAKER) (test 137 meq/L 136-145 bdxv=318) POTASSIUM (BEAKER) (test 3.9 meq/L 3.5-5.1 swyj=649) CHLORIDE (BEAKER) (test 106 meq/L 98-107 yoqe=149) CO2 (BEAKER) (test 23 meq/L 22-29 zkrs=295) BLOOD UREA NITROGEN 14 mg/dL 7-21 (BEAKER) (test oebd=304) CREATININE (BEAKER) (test 0.89 mg/dL 0.57-1.25 mflg=242) GLUCOSE RANDOM (BEAKER) 99 mg/dL 70-105 (test nfbn=256) CALCIUM (BEAKER) (test 9.0 mg/dL 8.4-10.2 jalh=354) EGFR (BEAKER) (test 85 mL/min/1.73 sq m ESTIMATED GFR IS NOT lvwn=3415) ACCURATE CREATININE CLEARANCE IN PREDICTING GLOMERULAR FILTRATION RATE. ESTIMATED GFR IS NOT APPLICABLE FOR DIALYSIS PATIENTS. PROTHROMBIN [id number] 06:31:00 Test Item Value Reference Range Comments PROTIME (BEAKER) (test ngnb=141) 13.7 seconds 11.7-14.7 INR (BEAKER) (test omga=149) 1.1 <=5.9 RECOMMENDED COUMADIN/WARFARIN INR THERAPY RANGESSTANDARD DOSE: 2.0 - 3.0 Includes: PROPHYLAXIS forvenous thrombosis, systemic embolization; TREATMENT for venous thrombosis and/or pulmonary embolus.HIGH RISK: Target INR is 2.5-3.5 for patients with mechanical heart valves.[id number] 06:31:00 Test Item Value Reference Range Comments PARTIAL THROMBOPLASTIN TIME (BEAKER) (test 30.3 seconds 22.5-36.0 sjzs=478) POCT-GLUCOSE [id number] 21:46:00 Test Item Value Reference Range Comments POC-GLUCOSE METER (BEAKER) 97 mg/dL 70-110 TESTED AT [address] (test dvpo=6187) [facility] [address] POCT-GLUCOSE [id number] 12:19:00 Test Item Value Reference Range Comments POC-GLUCOSE METER (BEAKER) 118 mg/dL 70-110 TESTED AT [address] (test lcsp=8258) [facility] [address] POCT-GLUCOSE [id number] 08:50:00 Test Item Value Reference Range Comments POC-GLUCOSE METER (BEAKER) 135 mg/dL 70-110 TESTED AT [address] (test lvmw=4161) [facility] [address] POCT-GLUCOSE [id number] 07:45:00 Test Item Value Reference Range Comments POC-GLUCOSE METER (BEAKER) 94 mg/dL 70-110 TESTED AT [address] (test fezc=2293) [facility] [address] CBC W/PLT COUNT & AUTO [id number] 05:32:00 Test Item Value Reference Range Comments WHITE BLOOD CELL COUNT (BEAKER) (test frly=784) 4.8 K/ L 4.0-10.0 RED BLOOD CELL COUNT (BEAKER) (test tlhh=984) 4.11 M/ L 4.20-5.80 HEMOGLOBIN (BEAKER) (test mxbj=366) 12.7 GM/DL 13.0-16.8 HEMATOCRIT (BEAKER) (test bcvn=512) 36.8 % 40.0-50.0 MEAN CORPUSCULAR VOLUME (BEAKER) (test vzbg=851) 89.5 fL 82.0-98.0 MEAN CORPUSCULAR HEMOGLOBIN (BEAKER) (test 30.8 pg 27.0-33.0 xdce=416) MEAN CORPUSCULAR HEMOGLOBIN CONC (BEAKER) (test 34.4 GM/DL 32.0-36.0 klel=149) RED CELL DISTRIBUTION WIDTH (BEAKER) (test 11.9 % 10.3-14.2 llzt=371) PLATELET COUNT (BEAKER) (test uuzr=074) 143 K/CU MM 150-430 MEAN PLATELET VOLUME (BEAKER) (test syfm=608) 7.0 fL 6.5-10.5 NUCLEATED RED BLOOD CELLS (BEAKER) (test 0 /100 WBC 0-0 nkdi=357) NEUTROPHILS RELATIVE PERCENT (BEAKER) (test 74 % xmtu=932) LYMPHOCYTES RELATIVE PERCENT (BEAKER) (test 15 % sezr=130) MONOCYTES RELATIVE PERCENT (BEAKER) (test 7 % phgt=928) EOSINOPHILS RELATIVE PERCENT (BEAKER) (test 4 % dekf=984) BASOPHILS RELATIVE PERCENT (BEAKER) (test 0 % ujbq=293) NEUTROPHILS ABSOLUTE COUNT (BEAKER) (test 3.53 K/ L 1.80-8.00 kknj=856) LYMPHOCYTES ABSOLUTE COUNT (BEAKER) (test 0.72 K/ L 1.48-4.50 nabb=426) MONOCYTES ABSOLUTE COUNT (BEAKER) (test 0.33 K/ L 0.00-1.30 pdtv=153) EOSINOPHILS ABSOLUTE COUNT (BEAKER) (test 0.18 K/ L 0.00-0.50 ttfv=794) BASOPHILS ABSOLUTE COUNT (BEAKER) (test 0.01 K/ L 0.00-0.20 rgzp=548) [id number] 05:27:00 Test Item Value Reference Range Comments PHOSPHORUS (BEAKER) (test wzux=910) 3.4 mg/dL 2.3-4.7 [id number] 05:27:00 Test Item Value Reference Range Comments MAGNESIUM (BEAKER) (test ifnm=693) 2.0 mg/dL 1.6-2.6 BASIC METABOLIC [id number] 05:27:00 Test Item Value Reference Range Comments SODIUM (BEAKER) (test 139 meq/L 136-145 zfzn=604) POTASSIUM (BEAKER) (test 4.1 meq/L 3.5-5.1 octp=583) CHLORIDE (BEAKER) (test 108 meq/L 98-107 hagn=446) CO2 (BEAKER) (test 23 meq/L 22-29 wewh=879) BLOOD UREA NITROGEN 15 mg/dL 7-21 (BEAKER) (test jquz=974) CREATININE (BEAKER) (test 0.85 mg/dL 0.57-1.25 rhbr=723) GLUCOSE RANDOM (BEAKER) 105 mg/dL 70-105 (test eoxj=373) CALCIUM (BEAKER) (test 8.6 mg/dL 8.4-10.2 fokf=726) EGFR (BEAKER) (test 89 mL/min/1.73 sq m ESTIMATED GFR IS NOT mwnp=6150) ACCURATE CREATININE CLEARANCE IN PREDICTING GLOMERULAR FILTRATION RATE. ESTIMATED GFR IS NOT APPLICABLE FOR DIALYSIS PATIENTS. [id number] 05:09:00 Test Item Value Reference Range Comments PARTIAL THROMBOPLASTIN TIME (BEAKER) (test 29.4 seconds 22.5-36.0 osla=368) PROTHROMBIN [id number] 05:08:00 Test Item Value Reference Range Comments PROTIME (BEAKER) (test gkjb=003) 13.6 seconds 11.7-14.7 INR (BEAKER) (test jckc=030) 1.0 <=5.9 RECOMMENDED COUMADIN/WARFARIN INR THERAPY RANGESSTANDARD DOSE: 2.0 - 3.0 Includes: PROPHYLAXIS forvenous thrombosis, systemic embolization; TREATMENT for venous thrombosis and/or pulmonary embolus.HIGH RISK: Target INR is 2.5-3.5 for patients with mechanical heart valves.POCT-GLUCOSE [id number] 18:02:00 Test Item Value Reference Range Comments POC-GLUCOSE METER (BEAKER) 120 mg/dL 70-110 TESTED AT [address] (test esgo=4704) [place] [address] POCT-GLUCOSE [id number] 12:36:00 Test Item Value Reference Range Comments POC-GLUCOSE METER (BEAKER) 109 mg/dL 70-110 [address]ED [address] [address] (test vjjk=9342) [place] [address] POCT-GLUCOSE [id number] 07:59:00 Test Item Value Reference Range Comments POC-GLUCOSE METER (BEAKER) 104 mg/dL 70-110 TESTED AT [address] (test pxyo=4480) [place] [address] POCT-GLUCOSE [id number] 06:56:00 Test Item Value Reference Range Comments POC-GLUCOSE METER (BEAKER) 102 mg/dL 70-110 TESTED AT [address] (test zymk=0386) [place] [address] TROPONIN [id number] 02:03:00 Test Item Value Reference Range Comments TROPONIN I (BEAKER) (test zdga=583) < ng/mL 0.00-0.03 Effective 07/06/2014: Reference Range [...] renalfailure, acidosis, acute neurological disease, and persistent tachyarrhythmia.[id number] 01:55: 00 Test Item Value Reference Range Comments MAGNESIUM (BEAKER) (test 2.2 mg/dL 1.6-2.6 Specimen slightly hemolyzed sjoz=011) [id number] 01:55:00 Test Item Value Reference Range Comments PHOSPHORUS (BEAKER) (test 2.9 mg/dL 2.3-4.7 Specimen slightly hemolyzed vzdc=844) BASIC METABOLIC [id number] 01:55:00 Test Item Value Reference Range Comments SODIUM (BEAKER) (test 141 meq/L 136-145 byhe=402) POTASSIUM (BEAKER) (test 4.4 meq/L 3.5-5.1 Specimen slightly aapx=505) hemolyzed CHLORIDE (BEAKER) (test 111 meq/L 98-107 ybou=107) CO2 (BEAKER) (test 23 meq/L 22-29 yvrw=024) BLOOD UREA NITROGEN 15 mg/dL 7-21 (BEAKER) (test rkpo=887) CREATININE (BEAKER) (test 1.10 mg/dL 0.57-1.25 Specimen slightly ocga=163) hemolyzed GLUCOSE RANDOM (BEAKER) 103 mg/dL 70-105 (test ubqn=881) CALCIUM (BEAKER) (test 8.2 mg/dL 8.4-10.2 dkwk=173) EGFR (BEAKER) (test 66 mL/min/1.73 sq m ESTIMATED GFR IS NOT xzdb=0710) ACCURATE CREATININE CLEARANCE IN PREDICTING GLOMERULAR FILTRATION RATE. ESTIMATED GFR IS NOT APPLICABLE FOR DIALYSIS PATIENTS. [id number] 01:33:00 Test Item Value Reference Range Comments PARTIAL THROMBOPLASTIN TIME (BEAKER) (test 30.2 seconds 22.5-36.0 ojwl=012) PROTHROMBIN TIME/[id number] 01:32:00 Test Item Value Reference Range Comments PROTIME (BEAKER) (test zofk=792) 14.7 seconds 11.7-14.7 INR (BEAKER) (test aqdt=937) 1.2 <=5.9 RECOMMENDED COUMADIN/WARFARIN INR THERAPY RANGESSTANDARD DOSE: 2.0 - 3.0 Includes: PROPHYLAXIS forvenous thrombosis, systemic embolization; TREATMENT for venous thrombosis and/or pulmonary embolus.HIGH RISK: Target INR is 2.5-3.5 for patients with mechanical heart valves.CBC W/PLT COUNT & AUTO [id number] 01:23:00 Test Item Value Reference Range Comments WHITE BLOOD CELL COUNT (BEAKER) (test wiic=083) 4.8 K/ L 4.0-10.0 RED BLOOD CELL COUNT (BEAKER) (test adys=484) 4.08 M/ L 4.20-5.80 HEMOGLOBIN (BEAKER) (test wuad=900) 13.0 GM/DL 13.0-16.8 HEMATOCRIT (BEAKER) (test qmdn=960) 36.7 % 40.0-50.0 MEAN CORPUSCULAR VOLUME (BEAKER) (test lylm=818) 90.0 fL 82.0-98.0 MEAN CORPUSCULAR HEMOGLOBIN (BEAKER) (test 31.8 pg 27.0-33.0 vbig=309) MEAN CORPUSCULAR HEMOGLOBIN CONC (BEAKER) (test 35.3 GM/DL 32.0-36.0 hhcr=854) RED CELL DISTRIBUTION WIDTH (BEAKER) (test 12.2 % 10.3-14.2 umph=254) PLATELET COUNT (BEAKER) (test jhhm=149) 151 K/CU MM 150-430 MEAN PLATELET VOLUME (BEAKER) (test vdbc=606) 7.3 fL 6.5-10.5 NUCLEATED RED BLOOD CELLS (BEAKER) (test 0 /100 WBC 0-0 qgdq=535) NEUTROPHILS RELATIVE PERCENT (BEAKER) (test 76 % shfp=844) LYMPHOCYTES RELATIVE PERCENT (BEAKER) (test 15 % lqof=652) MONOCYTES RELATIVE PERCENT (BEAKER) (test 6 % xmrj=367) EOSINOPHILS RELATIVE PERCENT (BEAKER) (test 3 % akqc=762) BASOPHILS RELATIVE PERCENT (BEAKER) (test 0 % mzqw=683) NEUTROPHILS ABSOLUTE COUNT (BEAKER) (test 3.65 K/ L 1.80-8.00 fhqj=821) LYMPHOCYTES ABSOLUTE COUNT (BEAKER) (test 0.72 K/ L 1.48-4.50 ulmc=680) MONOCYTES ABSOLUTE COUNT (BEAKER) (test 0.28 K/ L 0.00-1.30 qtoy=582) EOSINOPHILS ABSOLUTE COUNT (BEAKER) (test 0.13 K/ L 0.00-0.50 glxk=039) BASOPHILS ABSOLUTE COUNT (BEAKER) (test 0.00 K/ L 0.00-0.20 xbea=107) 0.00POCT-GLUCOSE [id number] 00:13:00 Test Item Value Reference Range Comments POC-GLUCOSE METER (BEAKER) 104 mg/dL 70-110 TESTED AT [address] (test qyzy=3376) [place] [address] POCT-GLUCOSE [id number] 17:43:00 Test Item Value Reference Range Comments POC-GLUCOSE METER (BEAKER) 131 mg/dL 70-110 TESTED AT [address] (test nqku=7233) [place] [address] TROPONIN [id number] 17:29:00 Test Item Value Reference Range Comments TROPONIN I (BEAKER) (test ajbg=124) < ng/mL 0.00-0.03 Effective 07/06/2014: Reference Range [...] acidosis, acute neurological disease, and persistent tachyarrhythmia.POCT-GLUCOSE [id number] 13:05:00 Test Item Value Reference Range Comments POC-GLUCOSE METER (BEAKER) 94 mg/dL 70-110 TESTED AT [address] (test pjpc=5093) [place] [address] RAPID DRUG SCREEN, [id number] 09:31:00 Test Item Value Reference Range Comments BARBITURATE URINE (BEAKER) (test mmaw=916) Negative Negative BENZODIAZEPINE SCREEN URINE (BEAKER) (test Negative Negative jglf=773) COCAINE (METAB.) SCREEN (BEAKER) (test ratp=6363) Negative Negative METHADONE SCREEN (BEAKER) (test kmsd=7681) Negative Negative OPIATE SCREEN URINE (BEAKER) (test btov=304) Positive Negative CANNABINOID SCREEN URINE (BEAKER) (test nqmu=190) Negative Negative AMPH/METHAMPH SCREEN (BEAKER) (test tugp=9248) Negative Negative PHENCYCLIDINE SCREEN URINE (BEAKER) (test zbjd=483) Negative Negative OXYCODONE SCREEN URINE (BEAKER) (test fhll=8853) Negative Negative DRUG CUTOFF CONC.Cocaine 300 ng/mL Cannabinoid 50 ng/mL Benzodiazepine 200 ng/mLBarbiturate 200 ng/ mLPhencyclidine 25 ng/mLOpiate 300 ng/mLMethadone 300 ng/mLAmphetamine/ 1000 ng/mL MethamphetamineOxycodone 300 ng/mLURINALYSIS W/ [id number] 09:29:00 Test Item Value Reference Range Comments COLOR (BEAKER) (test peax=102) Colorless CLARITY (BEAKER) (test fgte=045) Clear SPECIFIC GRAVITY UA (BEAKER) (test xgvc=368) 1.050 1.001-1.035 PH UA (BEAKER) (test lnlu=886) 7.5 5.0-8.0 PROTEIN UA (BEAKER) (test xnhi=652) Negative Negative GLUCOSE UA (BEAKER) (test etvm=729) Negative Negative KETONES UA (BEAKER) (test bbkf=883) Negative Negative BILIRUBIN UA (BEAKER) (test ccja=752) Negative Negative BLOOD UA (BEAKER) (test dwkl=136) Negative Negative NITRITE UA (BEAKER) (test hfhn=082) Negative Negative LEUKOCYTE ESTERASE UA (BEAKER) (test vugp=021) Negative Negative UROBILINOGEN UA (BEAKER) (test vshc=709) 0.2 mg/dL 0.2-1.0 RBC UA (BEAKER) (test frwz=672) 1 /HPF WBC UA (BEAKER) (test zchs=879) 1 /HPF SQUAMOUS EPITHELIAL (BEAKER) (test ewix=137) < /HPF SOURCE(BEAKER) (test rbyx=1108) Urine, [place] PLATELET AGGREGATION: FUNCTION [id number] 08:52:00 Test Item Value Reference Range Comments WEAK ADP RESULT(BEAKER) (test 13 % 60-91 adnb=9251) PLATELET FUNCTION SCREEN 0-39% indicates marked platelet INTERP (BEAKER) (test dysfunction lnwn=0241) [id number] Racquel Acevedo MD (BEAKER) (test pmnh=2996) (electronic signature) PLATELET COUNT AGG (BEAKER) 141 K/CU MM 150-430 (test xvgy=1831) TROPONIN [id number] 05:06:00 Test Item Value Reference Range Comments TROPONIN I (BEAKER) (test abau=355) < ng/mL 0.00-0.03 Effective 07/06/2014: Reference Range [...] renalfailure, acidosis, acute neurological disease, and persistent tachyarrhythmia.[id number] 04:56: 00 Test Item Value Reference Range Comments MAGNESIUM (BEAKER) (test 2.0 mg/dL 1.6-2.6 Specimen slightly hemolyzed vzwc=122) [id number] 04:56:00 Test Item Value Reference Range Comments PHOSPHORUS (BEAKER) (test 1.9 mg/dL 2.3-4.7 Specimen slightly hemolyzed jhii=578) BASIC METABOLIC [id number] 04:56:00 Test Item Value Reference Range Comments SODIUM (BEAKER) (test 140 meq/L 136-145 xeka=033) POTASSIUM (BEAKER) (test 4.3 meq/L 3.5-5.1 Specimen slightly simb=675) hemolyzed CHLORIDE (BEAKER) (test 109 meq/L 98-107 nufv=635) CO2 (BEAKER) (test 22 meq/L 22-29 hrzg=288) BLOOD UREA NITROGEN 19 mg/dL 7-21 (BEAKER) (test ymxm=374) CREATININE (BEAKER) (test 1.07 mg/dL 0.57-1.25 Specimen slightly jikc=506) hemolyzed GLUCOSE RANDOM (BEAKER) 111 mg/dL 70-105 (test bxoj=605) CALCIUM (BEAKER) (test 8.6 mg/dL 8.4-10.2 nktm=427) EGFR (BEAKER) (test 69 mL/min/1.73 sq m ESTIMATED GFR IS NOT nxml=2957) ACCURATE CREATININE CLEARANCE IN PREDICTING GLOMERULAR FILTRATION RATE. ESTIMATED GFR IS NOT APPLICABLE FOR DIALYSIS PATIENTS. [id number] 04:49:00 Test Item Value Reference Range Comments COL/EPI CLOSURE TIME (BEAKER) (test wbgk=4731) 104 Seconds 78-191 COL/ADP CLOSURE TIME (BEAKER) (test yjhd=1807) 65 Seconds 43-122 PLATELET COUNT AGG (BEAKER) (test sdsp=1912) 148 K/CU MM 150-430 CBC W/PLT COUNT & AUTO [id number] 04:34:00 Test Item Value Reference Range Comments WHITE BLOOD CELL COUNT (BEAKER) (test xfcl=376) 6.1 K/ L 4.0-10.0 RED BLOOD CELL COUNT (BEAKER) (test wqdi=153) 4.57 M/ L 4.20-5.80 HEMOGLOBIN (BEAKER) (test rtkv=154) 13.5 GM/DL 13.0-16.8 HEMATOCRIT (BEAKER) (test vomn=473) 40.9 % 40.0-50.0 MEAN CORPUSCULAR VOLUME (BEAKER) (test jldz=559) 89.5 fL 82.0-98.0 MEAN CORPUSCULAR HEMOGLOBIN (BEAKER) (test 29.6 pg 27.0-33.0 bmfk=035) MEAN CORPUSCULAR HEMOGLOBIN CONC (BEAKER) (test 33.1 GM/DL 32.0-36.0 eaxi=632) RED CELL DISTRIBUTION WIDTH (BEAKER) (test 11.9 % 10.3-14.2 jfws=010) PLATELET COUNT (BEAKER) (test lugs=901) 148 K/CU MM 150-430 MEAN PLATELET VOLUME (BEAKER) (test xgrn=242) 7.2 fL 6.5-10.5 NUCLEATED RED BLOOD CELLS (BEAKER) (test 0 /100 WBC 0-0 pbdh=227) NEUTROPHILS RELATIVE PERCENT (BEAKER) (test 81 % lhix=010) LYMPHOCYTES RELATIVE PERCENT (BEAKER) (test 11 % xkrz=957) MONOCYTES RELATIVE PERCENT (BEAKER) (test 5 % ykel=332) EOSINOPHILS RELATIVE PERCENT (BEAKER) (test 2 % gamu=506) BASOPHILS RELATIVE PERCENT (BEAKER) (test 0 % qvir=417) NEUTROPHILS ABSOLUTE COUNT (BEAKER) (test 4.93 K/ L 1.80-8.00 cnmq=461) LYMPHOCYTES ABSOLUTE COUNT (BEAKER) (test 0.69 K/ L 1.48-4.50 ssku=051) MONOCYTES ABSOLUTE COUNT (BEAKER) (test 0.30 K/ L 0.00-1.30 kzwu=557) EOSINOPHILS ABSOLUTE COUNT (BEAKER) (test 0.14 K/ L 0.00-0.50 ovjq=192) BASOPHILS ABSOLUTE COUNT (BEAKER) (test 0.01 K/ L 0.00-0.20 amhx=898) 0.00
[2018-09-27 19:30] LABS: Absolute Lymphocytes (CBC) 1.1 K/uL (0.7-4.9); Absolute Monocytes 0.4 K/uL (0.1-1.3); Absolute Neutrophil 3.6 K/uL (1.8-8.0); Basophils % 0.6 % (0-1.3); Eosinophils % 4.5 % (0-4.4); Hematocrit 44.3 % (39.6-49.0); Lymphocytes % 20.1 % (15.3-44.8); MPV 7.7 fL (7.6-11.3); Monocytes % 7.9 % (3.3-12.3); RBC Red Blood Cell Count 4.83 M/uL (4.33-5.43)
[2018-09-27 19:31] LABS: Protime INR 1.04
[2018-09-27 19:47] LABS: ALT/SGPT 26 U/L (12-78); AST/SGOT 18 U/L (15-37); Albumin 3.8 g/dL (3.4-5.0); Alkaline Phosphatase 129 U/L (45-117); BUN Blood Urea Nitrogen 16 mg/dL (7-18); Bicarbonate 29 mmol/L (21-32); Bilirubin Direct < 0.1 mg/dL (0-0.2); Bilirubin Total 0.3 mg/dL (0.2-1.0); Glucose Level 94 mg/dL (74-106); NT PRO-BNP 41 pg/mL (<125); Protein, Total 7.4 g/dL (6.4-8.2); Sodium Level 139 mmol/L (136-145); Troponin (Emerg Dept Use Only) < 0.02 ng/mL (0.0-0.045)
--- NOTE | 2018-09-27 20:06 | ER ---
Nurse's Notes [facility] Department Name: Nelson Murillo Age: 73 yrs Sex: Male : 1945 Arrival Date: 09/27/2018 Time: 19:15 Bed 3 Private MD: Cliff Alvarez C Diagnosis: Chest pain Presentation: 09/27 19:26 Presenting complaint: Patient states: Chest pain that began just [employer]ELD [employer], states pain to lp1 center of chest radiating to left arm; "It just feels like a heaviness"; Denies any dizziness, nausea, vomiting, shortness of breath. Transition of care: patient was not received from another setting of care. Onset of symptoms was September 27, 2018 at 18:45. Risk Assessment: Do you want to hurt yourself or someone else? Patient reports no desire to harm self or others. Initial Sepsis Screen: Does the patient meet any 2 criteria? No. Patient's initial sepsis screen is negative. Does the patient have a suspected source of infection? No. Patient's initial sepsis screen is negative. Care prior to arrival: None. 19:26 Method Of Arrival: Wheelchair lp1 19:26 Acuity: HILARIA 2 lp1 Historical: - Allergies: 19:32 Ativan; lp1 19:32 Aspirin; lp1 19:32 Blood thinners; lp1 - Home Meds: 19:32 Dilantin 200mg Oral cap twice a day [Active]; Dilantin 30 mg Oral cap daily [Active]; lp1 omeprazole 40 mg oral cpDR once daily [Active]; metoprolol tartrate 25 mg Oral tab 1 tab 2 times per day [Active]; glucosamine sulfate 1500 every day Oral [Active]; simvastatin 80 mg Oral tab nightly [Active]; Vitamin B-12 1,000 mcg Oral tab daily [Active]; Feosol 325 mg (65 mg iron) Oral tab daily [Active]; ezetimibe oral 10 mg oral nightly [Active]; - PMHx: 19:32 CVA; GERD; High Cholesterol; Hypertension; Seizures; 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 - Social history:: Smoking status: Patient/guardian denies using tobacco. - Ebola Screening: : No symptoms or risks identified at this time. Screenin:32 Abuse screen: Denies threats or abuse. Denies injuries from another. Nutritional lp1 screening: No deficits noted. Tuberculosis screening: No symptoms or risk factors identified. 19:45 Fall Risk No fall in past 12 months (0 pts). No secondary diagnosis (0 pts). IV access ed1 (20 points). Ambulatory Aid- None/Bed Rest/Nurse Assist (0 pts). Gait- Normal/Bed Rest/Wheelchair (0 pts) Mental Status- Oriented to own ability (0 pts). Total Cantu Fall Scale indicates No Risk (0-24 pts). Assessment: 19:45 General: Appears uncomfortable, Behavior is calm, cooperative. Pain: Complains of pain ed1 in chest Pain radiates to left arm Pain currently is 9 out of 10 on a pain scale. Quality of pain is described as pressure, sharp, Pain began 1 hour ago. Is continuous. Neuro: Level of Consciousness is awake, alert, obeys commands, Oriented to person, place, time, situation. Cardiovascular: Reports None shortness of breath, Denies diaphoresis, fatigue, lightheadedness, nausea, palpitations, syncope, vomiting, Heart tones S1 S2 present Capillary refill < 3 seconds in bilateral fingers JVD is absent Patient's skin is warm and dry. Respiratory: Reports shortness of breath Airway is patent Respiratory effort is even, unlabored, Respiratory pattern is regular, symmetrical. GI: Abdomen is round non-distended, Bowel sounds present X 4 quads. Abd is soft and non tender X 4 quads. : No signs and/or symptoms were reported regarding the genitourinary system. EENT: No signs and/or symptoms were reported regarding the EENT system. Derm: Skin is pink, warm \\T\\ dry. 20:45 Reassessment: Patient appears in no apparent distress at this time. Patient and/or ed1 family updated on plan of care and expected duration. Pain level reassessed. Patient is alert, oriented x 3, equal unlabored respirations, skin warm/dry/pink. Patient states feeling better. Patient states symptoms have improved. Vital Signs: 19:15 BP 147 / 97; Pulse 76; Resp 17; Temp 97.4(O); Pulse Ox 99% on R/A; Weight 83.46 kg; lp1 Height 5 ft. 8 in. (172.72 cm); Pain 9/10; 19:32 BP 149 / 94; Pulse 70; Resp 18; Pulse Ox 98% on R/A; lp1 19:45 BP 125 / 86; Pulse 64; Pulse Ox 98% on 2 lpm NC; ed1 20:15 BP 130 / 92; Pulse 66; Resp 14; Pulse Ox 97% on 2 lpm NC; ed1 20:45 BP 120 / 84; Pulse 66; Resp 14; Temp 97.9(O); Pulse Ox 97% on 2 lpm NC; Pain 6/10; ed1 20:57 BP 136 / 86; Pulse 66; Resp 13; Pulse Ox 97% on R/A; lp1 19:15 Body Mass Index 27.98 (83.46 kg, 172.72 cm) lp1 ED Course: 19:15 Patient arrived in ED. es 19:15 Cliff Alvarez MD is Private Physician. es 19:17 Initial lab(s) drawn, by ED staff, sent to lab. EKG done, by ED staff, reviewed by Pedro ed1 Giovanni SOLER. Inserted saline lock: 18 gauge in right antecubital area, using aseptic technique. Blood collected. Patient maintains SpO2 saturation greater than 95% on room air. 19:25 Pedro Davila MD is Attending Physician. pkl 19:27 Triage completed. lp1 19:28 Arm band placed on left wrist. lp1 19:32 Patient has correct armband on for positive identification. Placed in gown. Bed in low lp1 position. Side rails up X2. school lunch monitor on. Pulse ox on. NIBP on. 19:50 XRAY Chest (1 view) In Process Unspecified. EDMS 20:02 Milena Razo, FERN is Primary Nurse. ed1 20:04 Cliff Alvarez MD is Hospitalizing Provider. pkl 20:22 Awaiting bed assignment. ed1 20:58 No provider procedures requiring assistance completed. Patient admitted, IV remains in lp1 place. Administered Medications: No medications were administered Outcome: 20:05 Decision to Hospitalize by Provider. pkl 20:58 Condition: stable lp1 20:58 Instructed on the need for admit. 21:27 Admitted to Tele accompanied by tech, via wheelchair, room 412, with chart, Report lp1 called to FERN Block 21:48 Patient left the ED. ed1 Signatures: Dispatcher [employer] Pedro Ghosh MD MD pkl Salyer, Edna es Riggs, Erika, RN RN ed1 Alcira Kirkland RN RN lp1
--- NOTE | 2018-09-27 20:06 | EDPHYS ---
Physician Documentation [facility] Name: Nelson Murillo Age: 73 yrs Sex: Male : 1945 Arrival Date: 09/27/2018 Time: 19:15 Bed 3 Private MD: Cliff Alvarez C ED Physician Pedro Davila HPI: 09/27 20:00 This 73 yrs old Male presents to ER via Wheelchair with complaints of Chest pkl Pain. 20:00 The patient or guardian reports chest pain that is located primarily in the substernal pkl area. Onset: just prior to arrival, 0.5 hour(s) ago. The pain radiates to the left arm. Associated signs and symptoms: Pertinent positives: shortness of breath. The chest pain is described as a pressure. Historical: - Allergies: 19:32 Ativan; lp1 19:32 Aspirin; lp1 19:32 Blood thinners; lp1 - Home Meds: 19:32 Dilantin 200mg Oral cap twice a day [Active]; Dilantin 30 mg Oral cap daily [Active]; lp1 omeprazole 40 mg oral cpDR once daily [Active]; metoprolol tartrate 25 mg Oral tab 1 tab 2 times per day [Active]; glucosamine sulfate 1500 every day Oral [Active]; simvastatin 80 mg Oral tab nightly [Active]; Vitamin B-12 1,000 mcg Oral tab daily [Active]; Feosol 325 mg (65 mg iron) Oral tab daily [Active]; ezetimibe oral 10 mg oral nightly [Active]; - PMHx: 19:32 CVA; GERD; High Cholesterol; Hypertension; Seizures; 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 - Social history:: Smoking status: Patient/guardian denies using tobacco. - Ebola Screening: : No symptoms or risks identified at this time. ROS: 20:00 Eyes: Negative for injury, pain, redness, and discharge, ENT: Negative for injury, pkl pain, and discharge, Neck: Negative for injury, pain, and swelling. 20:00 Cardiovascular: Positive for chest pain. 20:00 Respiratory: Positive for shortness of breath. 20:00 Abdomen/GI: Negative for abdominal pain, nausea, vomiting, and diarrhea. 20:00 Back: Negative for acute changes. 20:00 : Negative for urinary symptoms. 20:00 MS/extremity: Negative for acute changes. 20:00 Skin: Negative for rash. 20:00 Neuro: Negative for altered mental status. Exam: 20:00 Head/Face: Normocephalic, atraumatic. Eyes: Pupils equal round and reactive to light, pkl extra-ocular motions intact. Lids and lashes normal. Conjunctiva and sclera are non-icteric and not injected. Cornea within normal limits. Periorbital areas with no swelling, redness, or edema. ENT: Nares patent. No nasal discharge, no septal abnormalities noted. Tympanic membranes are normal and external auditory canals are clear. Oropharynx with no redness, swelling, or masses, exudates, or evidence of obstruction, uvula midline. Mucous membranes moist. Neck: Trachea midline, no thyromegaly or masses palpated, and no cervical lymphadenopathy. Supple, full range of motion without nuchal rigidity, or vertebral point tenderness. No Meningismus. Chest/axilla: Normal chest wall appearance and motion. Nontender with no deformity. No lesions are appreciated. Cardiovascular: Regular rate and rhythm with a normal S1 and S2. No gallops, murmurs, or rubs. Normal PMI, no JVD. No pulse deficits. Respiratory: Lungs have equal breath sounds bilaterally, clear to auscultation and percussion. No rales, rhonchi or wheezes noted. No increased work of breathing, no retractions or nasal flaring. Abdomen/GI: Soft, non-tender, with normal bowel sounds. No distension or tympany. No guarding or rebound. No evidence of tenderness throughout. Back: No spinal tenderness. No costovertebral tenderness. Full range of motion. Male : Normal genitalia with no discharge or lesions. Skin: Warm, dry with normal turgor. Normal color with no rashes, no lesions, and no evidence of cellulitis. MS/ Extremity: Pulses equal, no cyanosis. Neurovascular intact. Full, normal range of motion. Neuro: Awake and alert, GCS 15, oriented to person, place, time, and situation. Cranial nerves II-XII grossly intact. Motor strength 5/5 in all extremities. Sensory grossly intact. Cerebellar exam normal. Normal gait. Vital Signs: 19:15 BP 147 / 97; Pulse 76; Resp 17; Temp 97.4(O); Pulse Ox 99% on R/A; Weight 83.46 kg; lp1 Height 5 ft. 8 in. (172.72 cm); Pain 9/10; 19:32 BP 149 / 94; Pulse 70; Resp 18; Pulse Ox 98% on R/A; lp1 19:45 BP 125 / 86; Pulse 64; Pulse Ox 98% on 2 lpm NC; ed1 20:15 BP 130 / 92; Pulse 66; Resp 14; Pulse Ox 97% on 2 lpm NC; ed1 20:45 BP 120 / 84; Pulse 66; Resp 14; Temp 97.9(O); Pulse Ox 97% on 2 lpm NC; Pain 6/10; ed1 20:57 BP 136 / 86; Pulse 66; Resp 13; Pulse Ox 97% on R/A; lp1 19:15 Body Mass Index 27.98 (83.46 kg, 172.72 cm) lp1 MDM: 19:25 Patient medically screened. pkl 20:00 Data reviewed: vital signs, nurses notes. pkl 20:13 ED course: Left message in Dr. Sanabria's answering machine regarding admission ( pkl Observation ). 09/27 19:17 Order name: Basic Metabolic Panel; Complete Time: 19:58 09/27 19:17 Order name: CBC with Diff; Complete Time: 19:58 09/27 19:17 Order name: LFT's; Complete Time: 19:58 09/27 19:17 Order name: Magnesium; Complete Time: 19:58 09/27 19:17 Order name: NT PRO-BNP; Complete Time: 19:58 09/27 19:17 Order name: PT-INR; Complete Time: 19:58 09/27 19:17 Order name: Troponin (emerg Dept Use Only); Complete Time: 19:58 09/27 19:17 Order name: XRAY Chest (1 view); Complete Time: 22:25 09/27 19:17 Order name: EKG; Complete Time: 19:18 09/27 19:17 Order name: Cardiac monitoring; Complete Time: 19:18 09/27 19:17 Order name: EKG - Nurse/Tech; Complete Time: 19:18 09/27 19:17 Order name: IV Saline Lock; Complete Time: 19:18 09/27 19:17 Order name: Labs collected and sent; Complete Time: 19:18 09/27 19:17 Order name: O2 Per Protocol; Complete Time: 19:19 fc 09/27 19:17 Order name: O2 Sat Monitoring; Complete Time: 19:19 Administered Medications: No medications were administered Disposition: 09/27/18 20:05 Hospitalization ordered by Cliff Alvarez for Observation. Preliminary diagnosis is Chest pain. - Bed requested for Telemetry/MedSurg (observation). - Status is Observation. ed1 - Condition is Stable. - Problem is new. - Symptoms have improved. UTI on Admission? No Signatures: Dispatcher [employer] EDMS Ruth Castañeda RN RN Pedro Davila MD MD pkl Lianne Pierce RN RN Milena Razo RN RN ed1 Alcira Kirkland RN RN lp1 Corrections: (The following items were deleted from the chart) 20:45 20:05 Hospitalization Ordered by A Antonio SOLER for Observation. Preliminary diagnosis is kl Chest pain. Bed requested for Telemetry/MedSurg (observation). Status is Observation. Condition is Stable. Problem is new. Symptoms have improved. UTI on Admission? No. pkl 21:48 20:45 09/27/2018 20:05 Hospitalization Ordered by A Antonio SOLER for Observation. ed1 Preliminary diagnosis is Chest pain. Bed requested for Telemetry/MedSurg (observation). Status is Observation. Condition is Stable. Problem is new. Symptoms have improved. UTI on Admission? No. kl
[2018-09-27] MEDS ORDERED: MORPHINE 4 MG/ML SYR IV PRN (20:08)
[2018-09-27] MEDS ORDERED: ONDANSETRON 4 MG/2 ML VIAL IV PRN (20:08)
--- NOTE | 2018-09-27 20:37 | RAD REPORT ---
EXAM DESCRIPTION: Edgar Single View09/27/2018 7:50 pm CLINICAL HISTORY: Chest pain COMPARISON: March 2018 FINDINGS: The lungs appear clear of acute infiltrate. The heart is normal size Calcified pleural plaques are again demonstrated IMPRESSION: No acute abnormalities displayed
[2018-09-27 22:46] VITALS: BMI 28.0
[2018-09-28 04:30] LABS: Absolute Lymphocytes (CBC) 0.9 K/uL (0.7-4.9); Absolute Monocytes 0.3 K/uL (0.1-1.3); Basophils % 0.5 % (0-1.3); Lymphocytes % 19.4 % (15.3-44.8); MPV 7.7 fL (7.6-11.3); Monocytes % 7.6 % (3.3-12.3); RBC Red Blood Cell Count 4.45 M/uL (4.33-5.43)
[2018-09-28 04:38] LABS: BUN Blood Urea Nitrogen 17 mg/dL (7-18); Bicarbonate 30 mmol/L (21-32); Glucose Level 93 mg/dL (74-106); Potassium 4.2 mmol/L (3.5-5.1); Sodium Level 140 mmol/L (136-145); Troponin I < 0.02 ng/mL (0.0-0.045)
[2018-09-28] MEDS: PHENYTOIN SODIUM 30 MG PO SCH (10:00)
[2018-09-28] MEDS: PHENYTOIN 200 MG PO SCH ×2 (10:00→20:17)
[2018-09-28] MEDS: METOPROLOL TARTRATE 25 MG PO SCH ×2 (10:00→20:17)
--- NOTE | 2018-09-28 10:54 | EKG ---
Test Date: 2018-09-27 Test Time: 19:16:12 Cardiology Technician: SHANA MEASUREMENT RESULTS: Intervals: Rate: 73 WV: 198 QRSD: 88 QT: 384 QTc: 423 [employer]: P: 51 WV: 198 QRS: 49 T: 66 INTERPRETIVE STATEMENTS: Normal sinus rhythm Normal ECG Compared to ECG 03/25/2018 04:22:26 First degree AV block no longer present Electronically Signed On 09-28-18 10:52:55 HEDIS MANAGER by Boni Baptiste
--- NOTE | 2018-09-28 16:12 | CON ---
History Of Present Illness: Mr. Murillo is a 73, who came to the hospital with chest pain. He was lef t almost axillary chest pain. It was nonradiating. No nausea, vomiting, or sweating. He had normal EKG, normal enzymes and is in the hospital overnight. Almost 1 year ago, he had similar episode of chest pain. He came to the hospital and had a stress test that was normal. He is discharged. He walters s not had any symptoms until now. His outpatient medications have been glucosamine, omeprazole, meto prolol, phenytoin, cyanocobalamin, iron sulfate, Zetia, and simvastatin. He has remote history of CN S hemorrhage. He uses no tobacco. Does not have diabetes. He has not had a seizure in a very long time. He is allergic to lorazepam. Physical Examination: General: He is 5 feet 8 inches, 184 pounds, overweight. No carotid bruit. Lungs: Clear. Cardiac: Normal. Abdomen: Soft. Extremities: Normal. His electrocardiogram is normal. I would recommend redo a pharmacologic nuclear stress test tomorrow . If it is normal, he can be discharged. TEODORO/BERKLEY Voice ID: [id number] Report ID: [id number]
[2018-09-28] MEDS ORDERED: EZETIMIBE 10 MG TAB PO SCH (21:00)
[2018-09-28] MEDS ORDERED: SIMVASTATIN 80 MG PO SCH (21:00)
[2018-09-28] MEDS: ACETAMINOPHEN 500 MG TAB PO PRN (23:09)
--- NOTE | 2018-09-28 23:55 | HP ---
Date of Admission: 09/28/2018 Chief Complaint: Chest pain. History Of Present Illness: This is a 73-year-old pleasant male patient who was doing fine in his [facility] usual state of health until around 7 p.m. yesterday, started to have chest pain in the center of the chest, describing as pressure type of feeling, and he literally describes that as if somebody st anding on his chest. The patient also reported pain radiating to his left arm associated with some s hortness of breath. His decided to bring him to the emergency room, and after he was evaluated, he was admitted to the hospital and subsequently his pain resolved and has not had any recurrence of that. Denies any fall or injury. No cough, cold, congestion, fever, or expectoration. When I saw him, he was asymptomatic and his was present with him at bedside. Allergies: LORAZEPAM. Medications: List reviewed. Review of Systems: Cardiovascular: As mentioned above. All other systems reviewed are negative. Past Surgical History: IVC filter placement in December 2016 for DVT of right leg and at that time, he wa s not a candidate for anticoagulation therapy because of intracranial hemorrhage. He had a hernia re pair in 2013, right shoulder surgery in 2006, appendectomy, tonsillectomy, and vasectomy. Family History: Significant for coronary artery disease and lung cancer. Social History: Prior history of smoking, not at present time. Use of alcohol negative. Past Medical History: Significant for subdural hematoma, pneumonia, right leg DVT, hypertension, sei zure disorder, anemia, mixed hyperlipidemia, gastroesophageal reflux disease, osteoporosis, subarachn oid hemorrhage in September 2016, sleep apnea, benign prostatic hypertrophy. Physical Examination: Vital Signs: Temperature 98.3, pulse 64, respiratory rate 16, blood pressure 114/75, oxygen saturati on 93. Height 5 feet 8 inches, weight 184 pounds. General: Awake, alert, oriented, not in distress. HEENT: Head atraumatic, normocephalic. Conjunctivae nonerythematous. Sclerae white. Mouth, no thr ush or edema noted. Ears/Nose, no mass, lesion, discharge noted. Neck: Supple. No JVD, lymph nodes, bruit, thyromegaly noted. Lungs: Bilateral good equal air entry. Clear to auscultation. No rhonchi. No rales. Heart: Normal heart sounds, no murmur or gallop. Abdomen: Soft, bowel sounds normal. No guarding, rigidity, tenderness, mass, hepatosplenomegaly, dis tention, or bruit noted. Extremities: No leg edema. No calf tenderness. Skin: No rash, ulcer, cellulitis. Lymphatics: No lymph node enlargement in neck, supraclavicular, infraclavicular region. Neuro: No focal neurological deficit. Chest: Unremarkable. External Genitalia: Deferred. Rectal: Deferred. Laboratory Data: Yesterday, white count 5.4, hemoglobin 14.9, and platelet count 137. This morning, white count 4.4, hemoglobin 13.7, platelets 120. Yesterday, sodium 139, potassium 4, chloride 105, bicarb 29, BUN 16, creatinine 1.27, glucose 94. Liver function tests unremarkable. Troponin less th an 0.02 x3. This morning, sodium 140, potassium 4.2, chloride 106, bicarb 30, BUN 17, creatinine 1.1 2, glucose 92. Impression: 1.Chest pain. 2.Thrombocytopenia. 3.Hypertension. 4.Seizure disorder. 5.Mixed hyperlipidemia. 6.Gastroesophageal reflux disease. 7.Osteoporosis. 8.Benign prostatic hypertrophy. 9.Sleep apnea. 10.History of subdural hematoma and subarachnoid hemorrhage. 11.History of deep venous thrombosis. 12.Status post IVC filter. Plan: Admit the patient to hospital for further evaluation and management of this problem. The ashley ent is asymptomatic. He is on telemetry floor. LA has been ruled out and cardiology consultation wa s requested. We will follow up with windshield technician for his recommendation. His last stress test was i n October of 2017 and it was negative for stress-induced ischemia. If windshield technician determines he is st able for discharge with outpatient workup, then we will plan to discharge him to go home today with i nstruction to continue all prior home medications. Details and plan of treatment discussed with the patient and his . LADONNA/MODL Voice ID: [id number]
[2018-09-29] MEDS ORDERED: FERROUS SULFATE 65 MG PO SCH (09:00)
[2018-09-29] MEDS ORDERED: CYANOCOBALAMIN PO SCH (09:00)
[2018-09-29] MEDS: METOPROLOL TARTRATE 25 MG PO SCH (09:00)
[2018-09-29] MEDS ORDERED: REGADENOSON 0.4 MG/5 ML SYR IV ONE (09:04)
[2018-09-29] MEDS: ACETAMINOPHEN 500 MG TAB PO PRN (10:28)
[2018-09-29] MEDS: PHENYTOIN 200 MG PO SCH (10:28)
[2018-09-29] MEDS: PHENYTOIN SODIUM 30 MG PO SCH (10:29)
[2018-09-29 10:47] VITALS: O2SAT 97
--- NOTE | 2018-09-29 14:17 | TREADPHA ---
DX: CHEST PAIN Date of Study: 09/29/2018 Ht: 5 8 Wt: 184 lb 3.2 oz Consulting Physician: JADE MEDICATIONS: TYLENOL, EZETIMIBE, MORPHINE SULFATE, ZOFRAN, LOPRESSOR, SIMVASTATIN HISTORY: 73 YEAR OLD MALE HERE FOR CHEST PAIN. HISTORY OF CEREBRAL VASCULAR ACCIDENT, GERD, HIGH CHOLESTEROL, HYPERTENSION, SEIZURES, SUBARACHNOID HEMORRAHAGE 09/2016 PHYSICIAL EXAMINATION: RESTING B.P.: 154/89 RESTING H.R.: 64 RESTING EKG: NORMAL PROTOCOL: LEXISCAN EXERCISE TIME: 3:30 B.P. AT PEAK STRESS: 129/75 IMPRESSION: LEXISCAN STRESS TEST DONE. CARDIOLITE INJECTED PER PROTOCOL. NO ARRHYTHMIAS. COMPLAINTS OF STERNAL PRESSURE POST TEST. SEE NUCLEAR MEDICINE REPORT. NON-DIAGNOSTIC ELECTROCARDIOGRAM WITH LEXISCAN STRESS.
--- NOTE | 2018-09-29 14:46 | RAD REPORT ---
EXAM DESCRIPTION: NM - Rest Stress Cardiac Imaging - 09/29/2018 2:28 pm CLINICAL HISTORY: Chest pain COMPARISON: October 2017. TECHNIQUE: The patient was administered approximately 10 mCi of Tc 99m Sestamibi prior to resting SP ECT imaging of the heart. The patient was then administered approximately 30 mCi of Tc 99m Sestamibi following exercise or pharmacologic stress. Multiplanar SPECT images were reviewed. FINDINGS: The end diastolic volume is 79 ml, the end systolic volume is 29 ml, and the ejection frac tion is 63 %. Ventricular volumes and ejection fraction are not significantly different from November 05. Fixed defect along the inferior wall matches the study from 1 year earlier. This could be scarring, a ttenuation artifact or a combination. No stress-induced ischemia identifiable. No other areas of scar ring or artifact. IMPRESSION: No stress-induced ischemia. Fixed defect along the inferior wall from scarring, attenuation artifact or a combination. This has n ot changed since October 2017. Ventricular volumes and ejection fraction are normal range and are not significantly different from p rior study.
[2018-09-29 17:47] VITALS: BP 116/73; TEMP 97.8
--- NOTE | 2018-09-30 16:29 | DS ---
Date of Discharge: 09/29/2018 Disposition: Discharged to go home. Discharge Medications And Instructions: 1. Continue all prior home medications. 2. Follow up at my office per scheduled appointment. Laboratory Data: Upon admission, white count was 5.4, hemoglobin 14.9, and platelet count of 137. His chemistry upon admission, sodium 139, potassium 4, chloride 105, bicarb 29, BUN 16, creatinine 1.27, and glucose 94. Liver function tests unremarkable. Troponin less than 0.02. Hospital Course: A 73-year-old male patient admitted to the hospital after he presented to emergency room with complaints of chest pain. Please see dictated H and P for more information. After the patient was evaluated in the ER, he was admitted to the hospital. His FL was ruled out by getting serial cardiac enzymes. Cardiology consultation was obtained from Dr. Baptiste, and he ordered a Lexiscan stress test, which was done today and results came back showing no evidence of stress-induced ischemia. The patient is asymptomatic and has not had any chest pain since his admission to the hospital. 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 Physical Examination: HEENT: Unremarkable. Lungs: Clear to auscultation. Heart: Sounds normal. Abdomen: Soft. Bowel sounds normal. No guarding, rigidity, tenderness, distention. Extremities: No leg edema. Final Diagnoses: 1. Chest pain. 2. Thrombocytopenia. 3. Hypertension. 4. Seizure disorder. 5. Mixed hyperlipidemia. 6. Gastroesophageal reflux disease. 7. Osteoporosis. 8. Benign prostatic hypertrophy. 9. Sleep apnea. LADONNA/MODL Voice ID: [id number] Report ID: [id number] JENNY
== END 2018-09-29 17:30 | disposition home or self-care (01) ==
LOC: ER 19:12 → ERHOLD 20:06 → 4TH 21:28
PROVIDERS: ADMIT Internal Medicine; ATTEND Internal Medicine
DX: R07.9 Chest pain, unspecified (principal); D69.6 Thrombocytopenia, unspecified; I10 Essential (primary) hypertension; G40.909 Epilepsy, unspecified, not intractable, without status epilepticus; E78.2 Mixed hyperlipidemia; K21.9 Gastro-esophageal reflux disease without esophagitis; M81.0 Age-related osteoporosis without current pathological fracture; N40.0 Benign prostatic hyperplasia without lower urinary tract symptoms; G47.30 Sleep apnea, unspecified; Z86.718 Personal history of other venous thrombosis and embolism
CPT/HCPCS: 36415; 71045; 78452; 80048 ×2; 80076; 83735; 83880; 84484 ×3; 85025 ×2; 85610; 93005; 93017; 99285; A9500; G0378 ×2; J2785

== ENCOUNTER 2019-04-27 00:36 | Emergency (ER) | payer OTHER ==
--- OUTSIDE RECORDS SUMMARY | 2019-04-27 00:38 | XMS REPORT | Clinical Summary ---
:1945 Author Organization [facility] Address [address] [place] [id number] Care Team Providers Name Role Phone Sharpdominga Primary Care Provider Unavailable Allergies No Known Allergies Medications Medication Sig Dispensed Refills Start Date End Date Status omeprazole (PRILOSEC) Take 20 mg by 0 Active 20 MG capsule mouth 2 (two) times daily. pravastatin (PRAVACHOL) Take 40 mg by 0 Active 40 MG tablet mouth daily. Active Problems Problem Noted Date [...] Not on file Implants Implanted Type Area Supervisor Marble Device Shelf Model / Identifier Expiration Serial / Date Lot Matrix Floseal Hemo W/O Ndl 10 [id number] - [id number] Cement/Fi Left: POLLARD: BIOSCI 04/18/2018 [id number] / Implanted: Qty: 1 on 12/02/2016 by Michael Alonso MD ller/Luis Alberto Head / sive [id number] Matrix Floseal Hemo W/O Ndl 10 [id number] - [id number] Cement/Fi Left: POLLARD: BIOSCI 05/18/2018 [id number] / Implanted: Qty: 1 on 12/25/2016 by Michael Alonso MD ller/Luis Alberto Head / sive [id number] Cover [place] Low Prof 14mm [id number] - [id number] Fracture/ Left: RAPHAEL: RAPHAEL [id number] / Implanted: Qty: 1 on 12/02/2016 by Michael Alonso MD Fixation Head LEIBINGER / Plt W/Tab Un3 2h [id number] - [id number] Fracture/ Left: RAPHAEL:CRANIOMA [id number] / Implanted: Qty: 2 on 12/02/2016 by Michael Alonso MD Fixation Head XILLOFACIAL / Scr Un3 [place] Self Drl 1.5x4mm [id number] - [id number] Fracture/ Left: RAPHAEL: CRANIOMA [id number] / Implanted: Qty: 9 on 12/02/2016 by Michael Alonso MD Fixation Head XILLOFACIAL / Cath Bactiseal Evd 82-1745 - [id number] Neuro Left: J &J:CODMAN & 2016 [id number] / Implanted: Qty: 1 on 12/25/2016 by Michael Alonso MD Head [facility] / [id number] Results Not on fileafter 04/26/2018 Insurance Payer Benefit Plan / Group Subscriber ID Type Phone Address MEDICARE MEDICARE A B xxxxxxxxxx Medicare AETNA - MGD CARE AETNA INDEMNITY NON CONTR xxxxxxxxxx Comm Advance Directives For more information, please contact:[address] [phone] Code Status Date Activated Date Inactivated Comments [...]
--- OUTSIDE RECORDS SUMMARY | 2019-04-27 00:44 | XMS REPORT ---
:1945 [facility] Organization [facility] Address [address] [place] [address] Dr. Daly [address] [place] [id number] Care Team Providers Name Role Phone JEFF [...] Comments WHITE BLOOD CELL COUNT (BEAKER) (test aupt=974) 2.8 K/ L 4.0-10.0 RED BLOOD CELL COUNT (BEAKER) (test ttwx=170) 3.42 M/ L 4.20-5.80 HEMOGLOBIN (BEAKER) (test zyhy=331) 9.3 GM/DL 13.0-16.8 HEMATOCRIT (BEAKER) (test mpwk=612) 29.3 % 40.0-50.0 MEAN CORPUSCULAR VOLUME (BEAKER) (test ivbk=462) 85.7 fL 82.0-98.0 MEAN CORPUSCULAR HEMOGLOBIN (BEAKER) (test lady=343) 27.1 pg 27.0-33.0 MEAN CORPUSCULAR HEMOGLOBIN CONC (BEAKER) (test agvx=449) 31.7 GM/DL 32.0- 36.0 RED CELL DISTRIBUTION WIDTH (BEAKER) (test aqbr=348) 16.5 % 10.3-14.2 PLATELET COUNT (BEAKER) (test brfr=818) 163 K/CU MM 150-430 MEAN PLATELET VOLUME (BEAKER) (test wqef=621) 6.6 fL 6.5-10.5 NUCLEATED RED BLOOD CELLS (BEAKER) (test ghnx=957) 0 /100 WBC 0-0 NEUTROPHILS RELATIVE PERCENT (BEAKER) (test begx=024) 64 % LYMPHOCYTES RELATIVE PERCENT (BEAKER) (test dknn=681) 18 % MONOCYTES RELATIVE PERCENT (BEAKER) (test bqwm=246) 11 % EOSINOPHILS RELATIVE PERCENT (BEAKER) (test amdv=198) 7 % BASOPHILS RELATIVE PERCENT (BEAKER) (test tifd=972) 0 % NEUTROPHILS ABSOLUTE COUNT (BEAKER) (test jnih=870) 1.75 K/ L 1.80-8.00 LYMPHOCYTES ABSOLUTE COUNT (BEAKER) (test fqtj=365) 0.50 K/ L 1.48-4.50 MONOCYTES ABSOLUTE COUNT (BEAKER) (test uslp=871) 0.30 K/ L 0.00-1.30 EOSINOPHILS ABSOLUTE COUNT (BEAKER) (test enei=874) 0.20 K/ L 0.00-0.50 BASOPHILS ABSOLUTE COUNT (BEAKER) (test pjwe=882) 0.01 K/ L 0.00-0.20 0.00(MANUAL DIFFERENTIAL)2017-01-28 10:16:00 Test Item Value Reference Range Comments TOTAL COUNTED (BEAKER) (test qjkp=9848) WBC MORPHOLOGY (BEAKER) (test skoy=406) Normal PLT MORPHOLOGY (BEAKER) (test zqir=604) Normal RBC MORPHOLOGY (BEAKER) (test ppbt=987) Normal BASIC METABOLIC [id number] 07:36:00 Test Item Value Reference Range Comments SODIUM (BEAKER) (test 134 meq/L 136-145 jlwf=634) POTASSIUM (BEAKER) (test 4.0 meq/L 3.5-5.1 dyvq=624) CHLORIDE (BEAKER) (test 102 meq/L 98-107 jhoo=908) CO2 (BEAKER) (test 22 meq/L 22-29 emvm=846) BLOOD UREA NITROGEN 12 mg/dL 7-21 (BEAKER) (test srnu=290) CREATININE (BEAKER) (test 0.79 mg/dL 0.57-1.25 gucl=661) GLUCOSE RANDOM (BEAKER) 94 mg/dL 70-105 (test gedn=493) CALCIUM (BEAKER) (test 8.6 mg/dL 8.4-10.2 daxy=192) EGFR (BEAKER) (test 97 mL/min/1.73 sq m ESTIMATED GFR IS NOT ofse=2251) ACCURATE CREATININE CLEARANCE IN PREDICTING GLOMERULAR FILTRATION RATE. ESTIMATED GFR IS NOT APPLICABLE FOR DIALYSIS PATIENTS. [id number] 07:33:00 Test Item Value Reference Range Comments PROTIME (BEAKER) (test wiib=588) 14.0 seconds 11.7-14.7 INR (BEAKER) (test jbxy=085) 1.1 <=5.9 PARTIAL THROMBOPLASTIN TIME (BEAKER) (test 31.2 seconds 22.5-36.0 pmqr=583) RECOMMENDED COUMADIN/WARFARIN INR THERAPY RANGESSTANDARD DOSE: 2.0 - 3.0 Includes: PROPHYLAXIS forvenous thrombosis, systemic embolization; TREATMENT for venous thrombosis and/or pulmonary embolus.HIGH RISK: Target INR is 2.5-3.5 for patients with mechanical heart valves.[id number] 16:00:00 Test Item Value Reference Range Comments PHOSPHORUS (BEAKER) (test oorg=610) 3.6 mg/dL 2.3-4.7 [id number] 16:00:00 Test Item Value Reference Range Comments MAGNESIUM (BEAKER) (test rlqh=034) 2.0 mg/dL 1.6-2.6 BASIC METABOLIC [id number] 16:00:00 Test Item Value Reference Range Comments SODIUM (BEAKER) (test 134 meq/L 136-145 eplh=381) POTASSIUM (BEAKER) (test 4.2 meq/L 3.5-5.1 iojc=947) CHLORIDE (BEAKER) (test 102 meq/L 98-107 rddd=753) CO2 (BEAKER) (test 25 meq/L 22-29 xewg=204) BLOOD UREA NITROGEN 15 mg/dL 7-21 (BEAKER) (test nfml=955) CREATININE (BEAKER) (test 0.78 mg/dL 0.57-1.25 atbp=324) GLUCOSE RANDOM (BEAKER) 111 mg/dL 70-105 (test pgtu=400) CALCIUM (BEAKER) (test 8.3 mg/dL 8.4-10.2 ryrk=976) EGFR (BEAKER) (test 99 mL/min/1.73 sq m ESTIMATED GFR IS NOT tcis=6355) ACCURATE CREATININE CLEARANCE IN PREDICTING GLOMERULAR FILTRATION RATE. ESTIMATED GFR IS NOT APPLICABLE FOR DIALYSIS PATIENTS. CBC W/PLT COUNT & AUTO [id number] 15:02:00 Test Item Value Reference Range Comments WHITE BLOOD CELL COUNT (BEAKER) (test xber=095) 2.8 K/ L 4.0-10.0 RED BLOOD CELL COUNT (BEAKER) (test vxjg=531) 3.15 M/ L 4.20-5.80 HEMOGLOBIN (BEAKER) (test znle=867) 8.9 GM/DL 13.0-16.8 HEMATOCRIT (BEAKER) (test rcbg=198) 27.1 % 40.0-50.0 MEAN CORPUSCULAR VOLUME (BEAKER) (test hphd=184) 85.9 fL 82.0-98.0 MEAN CORPUSCULAR HEMOGLOBIN (BEAKER) (test 28.3 pg 27.0-33.0 qoak=924) MEAN CORPUSCULAR HEMOGLOBIN CONC (BEAKER) (test 33.0 GM/DL 32.0-36.0 fvlt=915) RED CELL DISTRIBUTION WIDTH (BEAKER) (test 15.8 % 10.3-14.2 oonn=560) PLATELET COUNT (BEAKER) (test vzah=711) 153 K/CU MM 150-430 MEAN PLATELET VOLUME (BEAKER) (test vpuq=643) 6.5 fL 6.5-10.5 NUCLEATED RED BLOOD CELLS (BEAKER) (test 0 /100 WBC 0-0 fddh=841) NEUTROPHILS RELATIVE PERCENT (BEAKER) (test 68 % vnkv=637) LYMPHOCYTES RELATIVE PERCENT (BEAKER) (test 15 % mkwn=407) MONOCYTES RELATIVE PERCENT (BEAKER) (test 9 % dqeg=884) EOSINOPHILS RELATIVE PERCENT (BEAKER) (test 7 % aceh=047) BASOPHILS RELATIVE PERCENT (BEAKER) (test 1 % fckd=318) NEUTROPHILS ABSOLUTE COUNT (BEAKER) (test 1.89 K/ L 1.80-8.00 qrjb=084) LYMPHOCYTES ABSOLUTE COUNT (BEAKER) (test 0.42 K/ L 1.48-4.50 duzh=711) MONOCYTES ABSOLUTE COUNT (BEAKER) (test 0.26 K/ L 0.00-1.30 ybtq=008) EOSINOPHILS ABSOLUTE COUNT (BEAKER) (test 0.20 K/ L 0.00-0.50 aaqt=917) BASOPHILS ABSOLUTE COUNT (BEAKER) (test 0.02 K/ L 0.00-0.20 noif=936) (MANUAL DIFFERENTIAL)2017-01-27 15:02:00 Test Item Value Reference Range Comments TOTAL COUNTED (BEAKER) (test dzbh=4688) WBC MORPHOLOGY (BEAKER) (test pvtv=653) Normal PLT MORPHOLOGY (BEAKER) (test klby=830) Normal RBC MORPHOLOGY (BEAKER) (test kgdh=848) Normal [id number] 07:21:00 Test Item Value Reference Range Comments PROTIME (BEAKER) (test jnsn=043) 14.0 seconds 11.7-14.7 INR (BEAKER) (test mqqu=142) 1.1 <=5.9 PARTIAL THROMBOPLASTIN TIME (BEAKER) (test 35.9 seconds 22.5-36.0 iqih=203) RECOMMENDED COUMADIN/WARFARIN INR THERAPY RANGESSTANDARD DOSE: 2.0 - 3.0 Includes: PROPHYLAXIS forvenous thrombosis, systemic embolization; TREATMENT for venous thrombosis and/or pulmonary embolus.HIGH RISK: Target INR is 2.5-3.5 for patients with mechanical heart valves.CALCIUM, [id number] 06:48:00 Test Item Value Reference Range Comments CALCIUM IONIZED (BEAKER) (test zmsc=769) 1.05 mmol/L 1.12-1.27 PH, BLOOD (BEAKER) (test eglw=8519) 7.40 CBC W/PLT COUNT & AUTO [id number] 13:02:00 Test Item Value Reference Range Comments WHITE BLOOD CELL COUNT (BEAKER) (test pogx=696) 2.9 K/ L 4.0-10.0 RED BLOOD CELL COUNT (BEAKER) (test ouln=466) 3.06 M/ L 4.20-5.80 HEMOGLOBIN (BEAKER) (test nwvq=639) 8.8 GM/DL 13.0-16.8 HEMATOCRIT (BEAKER) (test nurb=464) 26.4 % 40.0-50.0 MEAN CORPUSCULAR VOLUME (BEAKER) (test wlnr=358) 86.3 fL 82.0-98.0 MEAN CORPUSCULAR HEMOGLOBIN (BEAKER) (test 28.6 pg 27.0-33.0 mbnl=759) MEAN CORPUSCULAR HEMOGLOBIN CONC (BEAKER) (test 33.2 GM/DL 32.0-36.0 wvta=236) RED CELL DISTRIBUTION WIDTH (BEAKER) (test 14.4 % 10.3-14.2 wljb=891) PLATELET COUNT (BEAKER) (test sywx=634) 145 K/CU MM 150-430 MEAN PLATELET VOLUME (BEAKER) (test melq=845) 6.4 fL 6.5-10.5 NUCLEATED RED BLOOD CELLS (BEAKER) (test 0 /100 WBC 0-0 svik=327) NEUTROPHILS RELATIVE PERCENT (BEAKER) (test 67 % gjng=014) LYMPHOCYTES RELATIVE PERCENT (BEAKER) (test 17 % mpnd=530) MONOCYTES RELATIVE PERCENT (BEAKER) (test 11 % yiyh=572) EOSINOPHILS RELATIVE PERCENT (BEAKER) (test 5 % sohi=363) BASOPHILS RELATIVE PERCENT (BEAKER) (test 0 % brxq=024) NEUTROPHILS ABSOLUTE COUNT (BEAKER) (test 1.98 K/ L 1.80-8.00 sfcf=715) LYMPHOCYTES ABSOLUTE COUNT (BEAKER) (test 0.50 K/ L 1.48-4.50 wvii=787) MONOCYTES ABSOLUTE COUNT (BEAKER) (test 0.31 K/ L 0.00-1.30 wirp=682) EOSINOPHILS ABSOLUTE COUNT (BEAKER) (test 0.15 K/ L 0.00-0.50 vsmk=362) BASOPHILS ABSOLUTE COUNT (BEAKER) (test 0.00 K/ L 0.00-0.20 jhss=813) (MANUAL DIFFERENTIAL)2017-01-26 13:02:00 Test Item Value Reference Range Comments TOTAL COUNTED (BEAKER) (test mjlk=3402) WBC MORPHOLOGY (BEAKER) (test zhdu=272) Normal PLT MORPHOLOGY (BEAKER) (test fleu=607) Normal ANISOCYTOSIS (BEAKER) (test fbly=623) 1+ few POLYCHROMATOPHILLIC RBCS(BEAKER) (test barr=250) 1+ few [id number] 07:15:00 Test Item Value Reference Range Comments PHOSPHORUS (BEAKER) (test lgon=551) 3.2 mg/dL 2.3-4.7 [id number] 07:15:00 Test Item Value Reference Range Comments MAGNESIUM (BEAKER) (test vdfj=311) 2.1 mg/dL 1.6-2.6 BASIC METABOLIC [id number] 07:15:00 Test Item Value Reference Range Comments SODIUM (BEAKER) (test 132 meq/L 136-145 hweb=778) POTASSIUM (BEAKER) (test 4.3 meq/L 3.5-5.1 mxgt=644) CHLORIDE (BEAKER) (test 101 meq/L 98-107 knae=187) CO2 (BEAKER) (test 25 meq/L 22-29 hxne=520) BLOOD UREA NITROGEN 15 mg/dL 7-21 (BEAKER) (test xljt=259) CREATININE (BEAKER) (test 0.78 mg/dL 0.57-1.25 ddsn=137) GLUCOSE RANDOM (BEAKER) 95 mg/dL 70-105 (test stqk=124) CALCIUM (BEAKER) (test 8.1 mg/dL 8.4-10.2 vwbq=355) EGFR (BEAKER) (test 99 mL/min/1.73 sq m ESTIMATED GFR IS NOT yiti=9424) ACCURATE CREATININE CLEARANCE IN PREDICTING GLOMERULAR FILTRATION RATE. ESTIMATED GFR IS NOT APPLICABLE FOR DIALYSIS PATIENTS. CALCIUM, [id number] 06:56:00 Test Item Value Reference Range Comments CALCIUM IONIZED (BEAKER) (test sjhj=441) 1.00 mmol/L 1.12-1.27 PH, BLOOD (BEAKER) (test crky=6556) 7.39 [id number] 06:45:00 Test Item Value Reference Range Comments PROTIME (BEAKER) (test fgkp=045) 14.6 seconds 11.7-14.7 INR (BEAKER) (test kcex=336) 1.2 <=5.9 PARTIAL THROMBOPLASTIN TIME (BEAKER) (test 31.6 seconds 22.5-36.0 ifwq=963) RECOMMENDED COUMADIN/WARFARIN INR THERAPY RANGESSTANDARD DOSE: 2.0 - 3.0 Includes: PROPHYLAXIS forvenous thrombosis, systemic embolization; TREATMENT for venous thrombosis and/or pulmonary embolus.HIGH RISK: Target INR is 2.5-3.5 for patients with mechanical heart valves.CBC W/PLT COUNT & AUTO [id number] 07:23:00 Test Item Value Reference Range Comments WHITE BLOOD CELL COUNT (BEAKER) (test secw=131) 3.8 K/ L 4.0-10.0 RED BLOOD CELL COUNT (BEAKER) (test csuk=008) 3.10 M/ L 4.20-5.80 HEMOGLOBIN (BEAKER) (test fcsl=991) 8.8 GM/DL 13.0-16.8 HEMATOCRIT (BEAKER) (test czym=179) 26.7 % 40.0-50.0 MEAN CORPUSCULAR VOLUME (BEAKER) (test qfer=188) 85.9 fL 82.0-98.0 MEAN CORPUSCULAR HEMOGLOBIN (BEAKER) (test 28.2 pg 27.0-33.0 ahso=145) MEAN CORPUSCULAR HEMOGLOBIN CONC (BEAKER) (test 32.9 GM/DL 32.0-36.0 czbr=959) RED CELL DISTRIBUTION WIDTH (BEAKER) (test 15.8 % 10.3-14.2 lqap=266) PLATELET COUNT (BEAKER) (test kjgx=593) 134 K/CU MM 150-430 MEAN PLATELET VOLUME (BEAKER) (test niyx=811) 6.4 fL 6.5-10.5 NUCLEATED RED BLOOD CELLS (BEAKER) (test 0 /100 WBC 0-0 zigl=225) NEUTROPHILS RELATIVE PERCENT (BEAKER) (test 75 % jfdp=606) LYMPHOCYTES RELATIVE PERCENT (BEAKER) (test 12 % pdol=225) MONOCYTES RELATIVE PERCENT (BEAKER) (test 9 % dwhv=490) EOSINOPHILS RELATIVE PERCENT (BEAKER) (test 3 % jrzs=992) BASOPHILS RELATIVE PERCENT (BEAKER) (test 1 % rmxt=349) NEUTROPHILS ABSOLUTE COUNT (BEAKER) (test 2.87 K/ L 1.80-8.00 maph=562) LYMPHOCYTES ABSOLUTE COUNT (BEAKER) (test 0.46 K/ L 1.48-4.50 wemm=172) MONOCYTES ABSOLUTE COUNT (BEAKER) (test 0.36 K/ L 0.00-1.30 pmbm=466) EOSINOPHILS ABSOLUTE COUNT (BEAKER) (test 0.13 K/ L 0.00-0.50 utmy=084) BASOPHILS ABSOLUTE COUNT (BEAKER) (test 0.02 K/ L 0.00-0.20 ackw=292) 0.000.500.000.000.000.000.000.00(MANUAL DIFFERENTIAL)2017-01-25 07:23:00 Test Item Value Reference Range Comments TOTAL COUNTED (BEAKER) (test pbxi=9002) WBC MORPHOLOGY (BEAKER) (test azhz=628) Normal PLT MORPHOLOGY (BEAKER) (test eoji=277) Normal POLYCHROMATOPHILLIC RBCS(BEAKER) (test lxfz=775) 1+ few BASIC METABOLIC [id number] 04:52:00 Test Item Value Reference Range Comments SODIUM (BEAKER) (test 131 meq/L 136-145 vkya=043) POTASSIUM (BEAKER) (test 4.2 meq/L 3.5-5.1 tgue=976) CHLORIDE (BEAKER) (test 100 meq/L 98-107 umxu=042) CO2 (BEAKER) (test 23 meq/L 22-29 vkgu=576) BLOOD UREA NITROGEN 15 mg/dL 7-21 (BEAKER) (test ytqa=274) CREATININE (BEAKER) (test 0.76 mg/dL 0.57-1.25 jbce=718) GLUCOSE RANDOM (BEAKER) 103 mg/dL 70-105 (test gntd=584) CALCIUM (BEAKER) (test 8.3 mg/dL 8.4-10.2 bnkw=243) EGFR (BEAKER) (test 102 mL/min/1.73 sq m ESTIMATED GFR IS NOT disr=1933) ACCURATE CREATININE CLEARANCE IN PREDICTING GLOMERULAR FILTRATION RATE. ESTIMATED GFR IS NOT APPLICABLE FOR DIALYSIS PATIENTS. [id number] 04:04:00 Test Item Value Reference Range Comments PROTIME (BEAKER) (test wjji=268) 13.8 seconds 11.7-14.7 INR (BEAKER) (test hyuz=571) 1.1 <=5.9 PARTIAL THROMBOPLASTIN TIME (BEAKER) (test 29.3 seconds 22.5-36.0 yrng=847) RECOMMENDED COUMADIN/WARFARIN INR THERAPY RANGESSTANDARD DOSE: 2.0 - 3.0 Includes: PROPHYLAXIS forvenous thrombosis, systemic embolization; TREATMENT for venous thrombosis and/or pulmonary embolus.HIGH RISK: Target INR is 2.5-3.5 for patients with mechanical heart valves.CBC W/PLT COUNT & AUTO [id number] 06:44:00 Test Item Value Reference Range Comments WHITE BLOOD CELL COUNT (BEAKER) (test anci=258) 3.8 K/ L 4.0-10.0 RED BLOOD CELL COUNT (BEAKER) (test rccw=874) 3.13 M/ L 4.20-5.80 HEMOGLOBIN (BEAKER) (test sutw=379) 8.9 GM/DL 13.0-16.8 HEMATOCRIT (BEAKER) (test ouwe=014) 27.2 % 40.0-50.0 MEAN CORPUSCULAR VOLUME (BEAKER) (test akww=470) 86.7 fL 82.0-98.0 MEAN CORPUSCULAR HEMOGLOBIN (BEAKER) (test 28.3 pg 27.0-33.0 vrtl=109) MEAN CORPUSCULAR HEMOGLOBIN CONC (BEAKER) (test 32.6 GM/DL 32.0-36.0 kson=238) RED CELL DISTRIBUTION WIDTH (BEAKER) (test 14.4 % 10.3-14.2 wmct=390) PLATELET COUNT (BEAKER) (test ecqx=743) 135 K/CU MM 150-430 MEAN PLATELET VOLUME (BEAKER) (test lmep=125) 6.5 fL 6.5-10.5 NUCLEATED RED BLOOD CELLS (BEAKER) (test 0 /100 WBC 0-0 jbnk=893) NEUTROPHILS RELATIVE PERCENT (BEAKER) (test 75 % itbe=367) LYMPHOCYTES RELATIVE PERCENT (BEAKER) (test 13 % sbdx=280) MONOCYTES RELATIVE PERCENT (BEAKER) (test 9 % dpbu=777) EOSINOPHILS RELATIVE PERCENT (BEAKER) (test 4 % clxc=736) BASOPHILS RELATIVE PERCENT (BEAKER) (test 0 % hjsw=163) NEUTROPHILS ABSOLUTE COUNT (BEAKER) (test 2.84 K/ L 1.80-8.00 rpph=257) LYMPHOCYTES ABSOLUTE COUNT (BEAKER) (test 0.48 K/ L 1.48-4.50 esjc=485) MONOCYTES ABSOLUTE COUNT (BEAKER) (test 0.33 K/ L 0.00-1.30 wjgx=642) EOSINOPHILS ABSOLUTE COUNT (BEAKER) (test 0.14 K/ L 0.00-0.50 gibk=148) BASOPHILS ABSOLUTE COUNT (BEAKER) (test 0.00 K/ L 0.00-0.20 rrlz=330) [id number] 06:23:00 Test Item Value Reference Range Comments PHOSPHORUS (BEAKER) (test phju=710) 3.5 mg/dL 2.3-4.7 [id number] 06:23:00 Test Item Value Reference Range Comments MAGNESIUM (BEAKER) (test wiah=922) 2.1 mg/dL 1.6-2.6 BASIC METABOLIC [id number] 06:23:00 Test Item Value Reference Range Comments SODIUM (BEAKER) (test 132 meq/L 136-145 bilt=321) POTASSIUM (BEAKER) (test 4.3 meq/L 3.5-5.1 bjya=699) CHLORIDE (BEAKER) (test 100 meq/L 98-107 rjbb=962) CO2 (BEAKER) (test 25 meq/L 22-29 ttpa=739) BLOOD UREA NITROGEN 17 mg/dL 7-21 (BEAKER) (test cxwc=946) CREATININE (BEAKER) (test 0.84 mg/dL 0.57-1.25 xsdz=474) GLUCOSE RANDOM (BEAKER) 102 mg/dL 70-105 (test sxxg=605) CALCIUM (BEAKER) (test 8.3 mg/dL 8.4-10.2 cyjr=270) EGFR (BEAKER) (test 91 mL/min/1.73 sq m ESTIMATED GFR IS NOT zzxt=5414) ACCURATE CREATININE CLEARANCE IN PREDICTING GLOMERULAR FILTRATION RATE. ESTIMATED GFR IS NOT APPLICABLE FOR DIALYSIS PATIENTS. [id number] 05:42:00 Test Item Value Reference Range Comments PROTIME (BEAKER) (test rurb=534) 14.0 seconds 11.7-14.7 INR (BEAKER) (test cicu=257) 1.1 <=5.9 PARTIAL THROMBOPLASTIN TIME (BEAKER) (test 30.1 seconds 22.5-36.0 dalq=498) RECOMMENDED COUMADIN/WARFARIN INR THERAPY RANGESSTANDARD DOSE: 2.0 - 3.0 Includes: PROPHYLAXIS forvenous thrombosis, systemic embolization; TREATMENT for venous thrombosis and/or pulmonary embolus.HIGH RISK: Target INR is 2.5-3.5 for patients with mechanical heart valves.CALCIUM, [id number] 05:34:00 Test Item Value Reference Range Comments CALCIUM IONIZED (BEAKER) (test mqpp=468) 1.08 mmol/L 1.12-1.27 PH, BLOOD (BEAKER) (test qxam=6414) 7.38 CBC W/PLT COUNT & AUTO [id number] 05:27:00 Test Item Value Reference Range Comments WHITE BLOOD CELL COUNT (BEAKER) (test uqgt=280) 4.9 K/ L 4.0-10.0 RED BLOOD CELL COUNT (BEAKER) (test pnlc=323) 3.22 M/ L 4.20-5.80 HEMOGLOBIN (BEAKER) (test dpsq=933) 8.9 GM/DL 13.0-16.8 HEMATOCRIT (BEAKER) (test touw=207) 27.9 % 40.0-50.0 MEAN CORPUSCULAR VOLUME (BEAKER) (test mlhc=314) 86.8 fL 82.0-98.0 MEAN CORPUSCULAR HEMOGLOBIN (BEAKER) (test 27.6 pg 27.0-33.0 rsuu=831) MEAN CORPUSCULAR HEMOGLOBIN CONC (BEAKER) (test 31.8 GM/DL 32.0-36.0 xuqv=634) RED CELL DISTRIBUTION WIDTH (BEAKER) (test 14.5 % 10.3-14.2 yrpu=039) PLATELET COUNT (BEAKER) (test kbkh=283) 137 K/CU MM 150-430 MEAN PLATELET VOLUME (BEAKER) (test zyee=083) 6.6 fL 6.5-10.5 NUCLEATED RED BLOOD CELLS (BEAKER) (test 0 /100 WBC 0-0 rgsp=739) NEUTROPHILS RELATIVE PERCENT (BEAKER) (test 77 % hyvo=605) LYMPHOCYTES RELATIVE PERCENT (BEAKER) (test 13 % ceok=978) MONOCYTES RELATIVE PERCENT (BEAKER) (test 8 % vehb=243) EOSINOPHILS RELATIVE PERCENT (BEAKER) (test 2 % pzdf=378) BASOPHILS RELATIVE PERCENT (BEAKER) (test 0 % ufwb=189) NEUTROPHILS ABSOLUTE COUNT (BEAKER) (test 3.77 K/ L 1.80-8.00 uzad=473) LYMPHOCYTES ABSOLUTE COUNT (BEAKER) (test 0.62 K/ L 1.48-4.50 joxk=778) MONOCYTES ABSOLUTE COUNT (BEAKER) (test 0.39 K/ L 0.00-1.30 xdub=552) EOSINOPHILS ABSOLUTE COUNT (BEAKER) (test 0.12 K/ L 0.00-0.50 ufbc=289) BASOPHILS ABSOLUTE COUNT (BEAKER) (test 0.01 K/ L 0.00-0.20 mznd=112) 0.00CALCIUM, [id number] 05:25:00 Test Item Value Reference Range Comments CALCIUM IONIZED (BEAKER) (test ypua=415) 1.06 mmol/L 1.12-1.27 PH, BLOOD (BEAKER) (test orjs=0316) 7.42 [id number] 05:10:00 Test Item Value Reference Range Comments PHOSPHORUS (BEAKER) (test ariv=496) 3.8 mg/dL 2.3-4.7 [id number] 05:10:00 Test Item Value Reference Range Comments MAGNESIUM (BEAKER) (test brsr=175) 2.0 mg/dL 1.6-2.6 BASIC METABOLIC [id number] 05:10:00 Test Item Value Reference Range Comments SODIUM (BEAKER) (test 129 meq/L 136-145 daii=825) POTASSIUM (BEAKER) (test 4.6 meq/L 3.5-5.1 fsjn=206) CHLORIDE (BEAKER) (test 99 meq/L 98-107 inuj=372) CO2 (BEAKER) (test 20 meq/L 22-29 jtaz=213) BLOOD UREA NITROGEN 19 mg/dL 7-21 (BEAKER) (test znzx=576) CREATININE (BEAKER) (test 0.84 mg/dL 0.57-1.25 zgre=590) GLUCOSE RANDOM (BEAKER) 103 mg/dL 70-105 (test xoyy=454) CALCIUM (BEAKER) (test 8.6 mg/dL 8.4-10.2 phih=076) EGFR (BEAKER) (test 91 mL/min/1.73 sq m ESTIMATED GFR IS NOT euvq=7875) ACCURATE CREATININE CLEARANCE IN PREDICTING GLOMERULAR FILTRATION RATE. ESTIMATED GFR IS NOT APPLICABLE FOR DIALYSIS PATIENTS. [id number] 05:03:00 Test Item Value Reference Range Comments PROTIME (BEAKER) (test jonr=974) 15.7 seconds 11.7-14.7 INR (BEAKER) (test clzq=359) 1.3 <=5.9 PARTIAL THROMBOPLASTIN TIME (BEAKER) (test 33.7 seconds 22.5-36.0 remm=331) RECOMMENDED COUMADIN/WARFARIN INR THERAPY RANGESSTANDARD DOSE: 2.0 - 3.0 Includes: PROPHYLAXIS forvenous thrombosis, systemic embolization; TREATMENT for venous thrombosis and/or pulmonary embolus.HIGH RISK: Target INR is 2.5-3.5 for patients with mechanical heart valves.CALCIUM, [id number] 06:19:00 Test Item Value Reference Range Comments CALCIUM IONIZED (BEAKER) (test pvzg=586) 0.95 mmol/L 1.12-1.27 PH, BLOOD (BEAKER) (test kokj=1698) 7.50 CBC W/PLT COUNT & AUTO [id number] 06:16:00 Test Item Value Reference Range Comments WHITE BLOOD CELL COUNT (BEAKER) (test gure=326) 6.3 K/ L 4.0-10.0 RED BLOOD CELL COUNT (BEAKER) (test wieg=679) 3.40 M/ L 4.20-5.80 HEMOGLOBIN (BEAKER) (test zcpz=072) 9.6 GM/DL 13.0-16.8 HEMATOCRIT (BEAKER) (test kphi=542) 29.5 % 40.0-50.0 MEAN CORPUSCULAR VOLUME (BEAKER) (test udmv=212) 86.8 fL 82.0-98.0 MEAN CORPUSCULAR HEMOGLOBIN (BEAKER) (test 28.3 pg 27.0-33.0 kwku=901) MEAN CORPUSCULAR HEMOGLOBIN CONC (BEAKER) (test 32.6 GM/DL 32.0-36.0 ntza=085) RED CELL DISTRIBUTION WIDTH (BEAKER) (test 14.2 % 10.3-14.2 itny=310) PLATELET COUNT (BEAKER) (test clwg=822) 135 K/CU MM 150-430 MEAN PLATELET VOLUME (BEAKER) (test butj=385) 6.7 fL 6.5-10.5 NUCLEATED RED BLOOD CELLS (BEAKER) (test 0 /100 WBC 0-0 yljt=827) NEUTROPHILS RELATIVE PERCENT (BEAKER) (test 81 % zqpy=072) LYMPHOCYTES RELATIVE PERCENT (BEAKER) (test 8 % irlu=947) MONOCYTES RELATIVE PERCENT (BEAKER) (test 8 % kjtr=037) EOSINOPHILS RELATIVE PERCENT (BEAKER) (test 2 % yyir=803) BASOPHILS RELATIVE PERCENT (BEAKER) (test 0 % cvlu=017) NEUTROPHILS ABSOLUTE COUNT (BEAKER) (test 5.14 K/ L 1.80-8.00 cjtw=543) LYMPHOCYTES ABSOLUTE COUNT (BEAKER) (test 0.54 K/ L 1.48-4.50 egdg=929) MONOCYTES ABSOLUTE COUNT (BEAKER) (test 0.51 K/ L 0.00-1.30 dazn=996) EOSINOPHILS ABSOLUTE COUNT (BEAKER) (test 0.13 K/ L 0.00-0.50 nwkh=744) BASOPHILS ABSOLUTE COUNT (BEAKER) (test 0.03 K/ L 0.00-0.20 emfc=582) [id number] 06:00:00 Test Item Value Reference Range Comments PHOSPHORUS (BEAKER) (test rwlg=648) 3.6 mg/dL 2.3-4.7 [id number] 06:00:00 Test Item Value Reference Range Comments MAGNESIUM (BEAKER) (test bzgw=617) 2.2 mg/dL 1.6-2.6 BASIC METABOLIC [id number] 06:00:00 Test Item Value Reference Range Comments SODIUM (BEAKER) (test 129 meq/L 136-145 dzmz=276) POTASSIUM (BEAKER) (test 4.7 meq/L 3.5-5.1 uxnt=015) CHLORIDE (BEAKER) (test 98 meq/L 98-107 zlsm=078) CO2 (BEAKER) (test 21 meq/L 22-29 etrs=649) BLOOD UREA NITROGEN 20 mg/dL 7-21 (BEAKER) (test skmz=119) CREATININE (BEAKER) (test 0.89 mg/dL 0.57-1.25 dwzp=899) GLUCOSE RANDOM (BEAKER) 114 mg/dL 70-105 (test cmtz=964) CALCIUM (BEAKER) (test 8.5 mg/dL 8.4-10.2 lqid=991) EGFR (BEAKER) (test 85 mL/min/1.73 sq m ESTIMATED GFR IS NOT hred=7317) ACCURATE CREATININE CLEARANCE IN PREDICTING GLOMERULAR FILTRATION RATE. ESTIMATED GFR IS NOT APPLICABLE FOR DIALYSIS PATIENTS. [id number] 05:49:00 Test Item Value Reference Range Comments PROTIME (BEAKER) (test eaja=604) 14.6 seconds 11.7-14.7 INR (BEAKER) (test sfog=424) 1.2 <=5.9 PARTIAL THROMBOPLASTIN TIME (BEAKER) (test 30.8 seconds 22.5-36.0 lmqx=457) RECOMMENDED COUMADIN/WARFARIN INR THERAPY RANGESSTANDARD DOSE: 2.0 - 3.0 Includes: PROPHYLAXIS forvenous thrombosis, systemic embolization; TREATMENT for venous thrombosis and/or pulmonary embolus.HIGH RISK: Target INR is 2.5-3.5 for patients with mechanical heart valves.[id number] 13:57:00 Test Item Value Reference Range Comments FIBRINOGEN LEVEL (BEAKER) (test qcan=449) 347 mg/dl 225-434 CBC W/PLT COUNT & AUTO [id number] 07:20:00 Test Item Value Reference Range Comments WHITE BLOOD CELL COUNT (BEAKER) (test nlik=445) 6.3 K/ L 4.0-10.0 RED BLOOD CELL COUNT (BEAKER) (test auqs=016) 3.41 M/ L 4.20-5.80 HEMOGLOBIN (BEAKER) (test beqe=502) 9.9 GM/DL 13.0-16.8 HEMATOCRIT (BEAKER) (test zimd=510) 29.5 % 40.0-50.0 MEAN CORPUSCULAR VOLUME (BEAKER) (test nfaw=263) 86.4 fL 82.0-98.0 MEAN CORPUSCULAR HEMOGLOBIN (BEAKER) (test 29.1 pg 27.0-33.0 fdpd=423) MEAN CORPUSCULAR HEMOGLOBIN CONC (BEAKER) (test 33.6 GM/DL 32.0-36.0 pdgu=750) RED CELL DISTRIBUTION WIDTH (BEAKER) (test 15.7 % 10.3-14.2 egsf=984) PLATELET COUNT (BEAKER) (test pplz=070) 126 K/CU MM 150-430 MEAN PLATELET VOLUME (BEAKER) (test czyf=225) 6.8 fL 6.5-10.5 NUCLEATED RED BLOOD CELLS (BEAKER) (test 0 /100 WBC 0-0 ldmh=302) NEUTROPHILS RELATIVE PERCENT (BEAKER) (test 82 % sasa=989) LYMPHOCYTES RELATIVE PERCENT (BEAKER) (test 8 % gbzv=684) MONOCYTES RELATIVE PERCENT (BEAKER) (test 8 % xpab=357) EOSINOPHILS RELATIVE PERCENT (BEAKER) (test 2 % rqbt=715) BASOPHILS RELATIVE PERCENT (BEAKER) (test 0 % umzm=701) NEUTROPHILS ABSOLUTE COUNT (BEAKER) (test 5.22 K/ L 1.80-8.00 gdev=720) LYMPHOCYTES ABSOLUTE COUNT (BEAKER) (test 0.53 K/ L 1.48-4.50 gynu=404) MONOCYTES ABSOLUTE COUNT (BEAKER) (test 0.50 K/ L 0.00-1.30 fmsx=294) EOSINOPHILS ABSOLUTE COUNT (BEAKER) (test 0.10 K/ L 0.00-0.50 jyzq=039) BASOPHILS ABSOLUTE COUNT (BEAKER) (test 0.01 K/ L 0.00-0.20 xdfm=500) 0.00BASI METABOLIC [id number] 06:11:00 Test Item Value Reference Range Comments SODIUM (BEAKER) (test 130 meq/L 136-145 lfcx=065) POTASSIUM (BEAKER) (test 4.8 meq/L 3.5-5.1 qztt=113) CHLORIDE (BEAKER) (test 96 meq/L 98-107 nxaj=295) CO2 (BEAKER) (test 25 meq/L 22-29 wpkv=304) BLOOD UREA NITROGEN 26 mg/dL 7-21 (BEAKER) (test mxjh=990) CREATININE (BEAKER) (test 0.92 mg/dL 0.57-1.25 opub=550) GLUCOSE RANDOM (BEAKER) 109 mg/dL 70-105 (test tojy=648) CALCIUM (BEAKER) (test 8.8 mg/dL 8.4-10.2 ydzk=837) EGFR (BEAKER) (test 82 mL/min/1.73 sq m ESTIMATED GFR IS NOT xmyq=7028) ACCURATE CREATININE CLEARANCE IN PREDICTING GLOMERULAR FILTRATION RATE. ESTIMATED GFR IS NOT APPLICABLE FOR DIALYSIS PATIENTS. PT/[id number] 06:01:00 Test Item Value Reference Range Comments PROTIME (BEAKER) (test aoei=326) 15.4 seconds 11.7-14.7 INR (BEAKER) (test over=570) 1.2 <=5.9 PARTIAL THROMBOPLASTIN TIME (BEAKER) (test 35.3 seconds 22.5-36.0 mpvi=155) RECOMMENDED COUMADIN/WARFARIN INR THERAPY RANGESSTANDARD DOSE: 2.0 - 3.0 Includes: PROPHYLAXIS forvenous thrombosis, systemic embolization; TREATMENT for venous thrombosis and/or pulmonary embolus.HIGH RISK: Target INR is 2.5-3.5 for patients with mechanical heart valves.CBC W/PLT COUNT & AUTO [id number] 07:13:00 Test Item Value Reference Range Comments WHITE BLOOD CELL COUNT (BEAKER) (test eppb=996) 6.9 K/ L 4.0-10.0 RED BLOOD CELL COUNT (BEAKER) (test ctpg=000) 3.46 M/ L 4.20-5.80 HEMOGLOBIN (BEAKER) (test umkf=939) 9.9 GM/DL 13.0-16.8 HEMATOCRIT (BEAKER) (test ltri=454) 30.0 % 40.0-50.0 MEAN CORPUSCULAR VOLUME (BEAKER) (test jqlg=636) 86.6 fL 82.0-98.0 MEAN CORPUSCULAR HEMOGLOBIN (BEAKER) (test 28.5 pg 27.0-33.0 ajgq=923) MEAN CORPUSCULAR HEMOGLOBIN CONC (BEAKER) (test 32.9 GM/DL 32.0-36.0 mmpg=866) RED CELL DISTRIBUTION WIDTH (BEAKER) (test 15.2 % 10.3-14.2 xgoy=067) PLATELET COUNT (BEAKER) (test egxv=573) 138 K/CU MM 150-430 MEAN PLATELET VOLUME (BEAKER) (test xpqy=932) 6.6 fL 6.5-10.5 NUCLEATED RED BLOOD CELLS (BEAKER) (test 0 /100 WBC 0-0 zhac=171) NEUTROPHILS RELATIVE PERCENT (BEAKER) (test 86 % plro=720) LYMPHOCYTES RELATIVE PERCENT (BEAKER) (test 5 % bbxu=978) MONOCYTES RELATIVE PERCENT (BEAKER) (test 7 % vlkj=461) EOSINOPHILS RELATIVE PERCENT (BEAKER) (test 1 % dfur=135) BASOPHILS RELATIVE PERCENT (BEAKER) (test 0 % tohz=391) NEUTROPHILS ABSOLUTE COUNT (BEAKER) (test 5.95 K/ L 1.80-8.00 ctyz=729) LYMPHOCYTES ABSOLUTE COUNT (BEAKER) (test 0.36 K/ L 1.48-4.50 waax=917) MONOCYTES ABSOLUTE COUNT (BEAKER) (test 0.50 K/ L 0.00-1.30 zues=188) EOSINOPHILS ABSOLUTE COUNT (BEAKER) (test 0.10 K/ L 0.00-0.50 bbeq=872) BASOPHILS ABSOLUTE COUNT (BEAKER) (test 0.03 K/ L 0.00-0.20 dsvm=301) 0.00PT/[id number] 06:09:00 Test Item Value Reference Range Comments PROTIME (BEAKER) (test onbv=126) 16.3 seconds 11.7-14.7 INR (BEAKER) (test wymv=090) 1.3 <=5.9 PARTIAL THROMBOPLASTIN TIME (BEAKER) (test 37.7 seconds 22.5-36.0 mctz=141) RECOMMENDED COUMADIN/WARFARIN INR THERAPY RANGESSTANDARD DOSE: 2.0 - 3.0 Includes: PROPHYLAXIS forvenous thrombosis, systemic embolization; TREATMENT for venous thrombosis and/or pulmonary embolus.HIGH RISK: Target INR is 2.5-3.5 for patients with mechanical heart valves.BASIC METABOLIC [id number] 06:08: 00 Test Item Value Reference Range Comments SODIUM (BEAKER) (test 131 meq/L 136-145 javr=188) POTASSIUM (BEAKER) (test 4.7 meq/L 3.5-5.1 xxoo=730) CHLORIDE (BEAKER) (test 99 meq/L 98-107 vqkd=728) CO2 (BEAKER) (test 20 meq/L 22-29 sjza=239) BLOOD UREA NITROGEN 21 mg/dL 7-21 (BEAKER) (test awrw=592) CREATININE (BEAKER) (test 0.91 mg/dL 0.57-1.25 pkfn=853) GLUCOSE RANDOM (BEAKER) 133 mg/dL 70-105 (test wyfm=094) CALCIUM (BEAKER) (test 8.8 mg/dL 8.4-10.2 esne=480) EGFR (BEAKER) (test 83 mL/min/1.73 sq m ESTIMATED GFR IS NOT rpph=7212) ACCURATE CREATININE CLEARANCE IN PREDICTING GLOMERULAR FILTRATION RATE. ESTIMATED GFR IS NOT APPLICABLE FOR DIALYSIS PATIENTS. CBC W/PLT COUNT & AUTO [id number] 04:02:00 Test Item Value Reference Range Comments WHITE BLOOD CELL COUNT (BEAKER) (test peld=325) 4.5 K/ L 4.0-10.0 RED BLOOD CELL COUNT (BEAKER) (test bjgu=475) 3.14 M/ L 4.20-5.80 HEMOGLOBIN (BEAKER) (test oxyu=591) 9.0 GM/DL 13.0-16.8 HEMATOCRIT (BEAKER) (test ssii=231) 27.3 % 40.0-50.0 MEAN CORPUSCULAR VOLUME (BEAKER) (test kegl=865) 86.9 fL 82.0-98.0 MEAN CORPUSCULAR HEMOGLOBIN (BEAKER) (test 28.5 pg 27.0-33.0 tlva=620) MEAN CORPUSCULAR HEMOGLOBIN CONC (BEAKER) (test 32.8 GM/DL 32.0-36.0 qixm=925) RED CELL DISTRIBUTION WIDTH (BEAKER) (test 14.7 % 10.3-14.2 zbhb=381) PLATELET COUNT (BEAKER) (test gqeg=821) 195 K/CU MM 150-430 MEAN PLATELET VOLUME (BEAKER) (test iary=534) 6.0 fL 6.5-10.5 NUCLEATED RED BLOOD CELLS (BEAKER) (test 0 /100 WBC 0-0 fnib=463) NEUTROPHILS RELATIVE PERCENT (BEAKER) (test 75 % ivkc=853) LYMPHOCYTES RELATIVE PERCENT (BEAKER) (test 11 % csvw=337) MONOCYTES RELATIVE PERCENT (BEAKER) (test 8 % yrte=617) EOSINOPHILS RELATIVE PERCENT (BEAKER) (test 6 % xucj=289) BASOPHILS RELATIVE PERCENT (BEAKER) (test 1 % jwls=725) NEUTROPHILS ABSOLUTE COUNT (BEAKER) (test 3.34 K/ L 1.80-8.00 mkot=795) LYMPHOCYTES ABSOLUTE COUNT (BEAKER) (test 0.49 K/ L 1.48-4.50 zbsa=831) MONOCYTES ABSOLUTE COUNT (BEAKER) (test 0.36 K/ L 0.00-1.30 ozpe=811) EOSINOPHILS ABSOLUTE COUNT (BEAKER) (test 0.26 K/ L 0.00-0.50 bner=122) BASOPHILS ABSOLUTE COUNT (BEAKER) (test 0.03 K/ L 0.00-0.20 owbz=021) 0.00BASIC METABOLIC [id number] 04:01:00 Test Item Value Reference Range Comments SODIUM (BEAKER) (test 133 meq/L 136-145 fqqj=791) POTASSIUM (BEAKER) (test 4.5 meq/L 3.5-5.1 kokx=050) CHLORIDE (BEAKER) (test 101 meq/L 98-107 myqg=171) CO2 (BEAKER) (test 23 meq/L 22-29 ouda=089) BLOOD UREA NITROGEN 15 mg/dL 7-21 (BEAKER) (test dpej=366) CREATININE (BEAKER) (test 0.76 mg/dL 0.57-1.25 qnam=229) GLUCOSE RANDOM (BEAKER) 107 mg/dL 70-105 (test onsc=102) CALCIUM (BEAKER) (test 8.4 mg/dL 8.4-10.2 qnun=254) EGFR (BEAKER) (test 102 mL/min/1.73 sq m ESTIMATED GFR IS NOT yyjz=7096) ACCURATE CREATININE CLEARANCE IN PREDICTING GLOMERULAR FILTRATION RATE. ESTIMATED GFR IS NOT APPLICABLE FOR DIALYSIS PATIENTS. PT/[id number] 03:47:00 Test Item Value Reference Range Comments PROTIME (BEAKER) (test pcra=480) 14.4 seconds 11.7-14.7 INR (BEAKER) (test oueq=440) 1.1 <=5.9 PARTIAL THROMBOPLASTIN TIME (BEAKER) (test 31.9 seconds 22.5-36.0 powk=398) RECOMMENDED COUMADIN/WARFARIN INR THERAPY RANGESSTANDARD DOSE: 2.0 - 3.0 Includes: PROPHYLAXIS forvenous thrombosis, systemic embolization; TREATMENT for venous thrombosis and/or pulmonary embolus.HIGH RISK: Target INR is 2.5-3.5 for patients with mechanical heart valves.OCCULT BLOOD, [id number] 15:31:00 Test Item Value Reference Range Comments FECAL OCCULT BLOOD (BEAKER) (test gpye=045) Negative Negative [id number] 13:55:00 Test Item Value Reference Range Comments D-DIMER QUANTITATIVE (BEAKER) (test rdje=442) 7.42 MG/L FEU <0.50 Intended Use: The D-Dimer Assay can be used to aid in the diagnosis of Deep Vein Thrombosis (DVT) and Pulmonary Embolism Disease (PED).In patients with low pre-test probability, various studies concerning STA Liatest D-dimer test have reported that with a cutoff value of 0.50 MG/L FEU, the Negative Predictive Value (NPV) regarding the exclusion of thrombosis is within 95-100% range.[id number] 13:47:00 Test Item Value Reference Range Comments FIBRINOGEN LEVEL (BEAKER) (test xbri=808) 424 mg/dl 225-434 CBC W/PLT COUNT & AUTO [id number] 06:48:00 Test Item Value Reference Range Comments WHITE BLOOD CELL COUNT (BEAKER) (test fbpi=036) 4.7 K/ L 4.0-10.0 RED BLOOD CELL COUNT (BEAKER) (test hkxa=063) 3.08 M/ L 4.20-5.80 HEMOGLOBIN (BEAKER) (test hath=018) 9.0 GM/DL 13.0-16.8 HEMATOCRIT (BEAKER) (test hgmp=936) 27.3 % 40.0-50.0 MEAN CORPUSCULAR VOLUME (BEAKER) (test lrsa=899) 88.5 fL 82.0-98.0 MEAN CORPUSCULAR HEMOGLOBIN (BEAKER) (test 29.2 pg 27.0-33.0 qpwa=931) MEAN CORPUSCULAR HEMOGLOBIN CONC (BEAKER) (test 33.0 GM/DL 32.0-36.0 ulpk=983) RED CELL DISTRIBUTION WIDTH (BEAKER) (test 13.6 % 10.3-14.2 momj=237) PLATELET COUNT (BEAKER) (test brid=190) 241 K/CU MM 150-430 MEAN PLATELET VOLUME (BEAKER) (test jqpg=975) 6.1 fL 6.5-10.5 NUCLEATED RED BLOOD CELLS (BEAKER) (test 0 /100 WBC 0-0 duzl=926) NEUTROPHILS RELATIVE PERCENT (BEAKER) (test 77 % hxxu=819) LYMPHOCYTES RELATIVE PERCENT (BEAKER) (test 14 % lpdq=402) MONOCYTES RELATIVE PERCENT (BEAKER) (test 6 % skmi=043) EOSINOPHILS RELATIVE PERCENT (BEAKER) (test 3 % olkm=105) BASOPHILS RELATIVE PERCENT (BEAKER) (test 1 % ufmq=981) NEUTROPHILS ABSOLUTE COUNT (BEAKER) (test 3.63 K/ L 1.80-8.00 kqnn=212) LYMPHOCYTES ABSOLUTE COUNT (BEAKER) (test 0.64 K/ L 1.48-4.50 dysu=467) MONOCYTES ABSOLUTE COUNT (BEAKER) (test 0.27 K/ L 0.00-1.30 dbiw=732) EOSINOPHILS ABSOLUTE COUNT (BEAKER) (test 0.14 K/ L 0.00-0.50 ganl=596) BASOPHILS ABSOLUTE COUNT (BEAKER) (test 0.03 K/ L 0.00-0.20 gvic=372) [id number] 05:05:00 Test Item Value Reference Range Comments PARTIAL THROMBOPLASTIN TIME (BEAKER) (test 51.7 seconds 22.5-36.0 junp=012) POCT-GLUCOSE [id number] 04:37:00 Test Item Value Reference Range Comments POC-GLUCOSE METER (BEAKER) 108 mg/dL 70-110 TESTED AT [facility] [address] [facility] (test swed=1195) [facility] [address] [id number] 22:51:00 Test Item Value Reference Range Comments PARTIAL THROMBOPLASTIN TIME (BEAKER) (test 96.1 seconds 22.5-36.0 pnwp=286) [id number] 16:04:00 Test Item Value Reference Range Comments PARTIAL THROMBOPLASTIN TIME (BEAKER) (test 93.1 seconds 22.5-36.0 vfaz=068) [id number] 06:38:00 Test Item Value Reference Range Comments PARTIAL THROMBOPLASTIN TIME (BEAKER) (test 93.0 seconds 22.5-36.0 yaxf=560) [id number] 23:08:00 Test Item Value Reference Range Comments PARTIAL THROMBOPLASTIN TIME (BEAKER) (test 56.6 seconds 22.5-36.0 rvkr=424) [id number] 18:59:00 Test Item Value Reference Range Comments PARTIAL THROMBOPLASTIN TIME (BEAKER) (test 28.6 seconds 22.5-36.0 puqv=740) PROTHROMBIN [id number] 15:38:00 Test Item Value Reference Range Comments PROTIME (BEAKER) (test pvns=244) 13.9 seconds 11.7-14.7 INR (BEAKER) (test qnjd=945) 1.1 <=5.9 RECOMMENDED COUMADIN/WARFARIN INR THERAPY RANGESSTANDARD DOSE: 2.0 - 3.0 Includes: PROPHYLAXIS forvenous thrombosis, systemic embolization; TREATMENT for venous thrombosis and/or pulmonary embolus.HIGH RISK: Target INR is 2.5-3.5 for patients with mechanical heart valves.[id number] 12:27:00 Test Item Value Reference Range Comments PARTIAL THROMBOPLASTIN TIME (BEAKER) (test 65.9 seconds 22.5-36.0 njkc=586) CBC W/PLT COUNT & AUTO [id number] 06:07:00 Test Item Value Reference Range Comments WHITE BLOOD CELL COUNT (BEAKER) (test hthe=260) 4.4 K/ L 4.0-10.0 RED BLOOD CELL COUNT (BEAKER) (test owfd=201) 2.81 M/ L 4.20-5.80 HEMOGLOBIN (BEAKER) (test pbii=178) 8.7 GM/DL 13.0-16.8 HEMATOCRIT (BEAKER) (test hnir=720) 24.5 % 40.0-50.0 MEAN CORPUSCULAR VOLUME (BEAKER) (test egmc=902) 87.3 fL 82.0-98.0 MEAN CORPUSCULAR HEMOGLOBIN (BEAKER) (test 31.1 pg 27.0-33.0 vejh=783) MEAN CORPUSCULAR HEMOGLOBIN CONC (BEAKER) (test 35.6 GM/DL 32.0-36.0 wcpm=075) RED CELL DISTRIBUTION WIDTH (BEAKER) (test 13.3 % 10.3-14.2 vnvm=271) PLATELET COUNT (BEAKER) (test hwdh=439) 176 K/CU MM 150-430 MEAN PLATELET VOLUME (BEAKER) (test maxy=214) 6.1 fL 6.5-10.5 NUCLEATED RED BLOOD CELLS (BEAKER) (test 0 /100 WBC 0-0 mrzj=780) NEUTROPHILS RELATIVE PERCENT (BEAKER) (test 72 % tift=056) LYMPHOCYTES RELATIVE PERCENT (BEAKER) (test 15 % yubf=167) MONOCYTES RELATIVE PERCENT (BEAKER) (test 8 % cohe=652) EOSINOPHILS RELATIVE PERCENT (BEAKER) (test 4 % eans=282) BASOPHILS RELATIVE PERCENT (BEAKER) (test 1 % crsa=619) NEUTROPHILS ABSOLUTE COUNT (BEAKER) (test 3.14 K/ L 1.80-8.00 avoe=054) LYMPHOCYTES ABSOLUTE COUNT (BEAKER) (test 0.65 K/ L 1.48-4.50 gvyn=034) MONOCYTES ABSOLUTE COUNT (BEAKER) (test 0.35 K/ L 0.00-1.30 nskp=653) EOSINOPHILS ABSOLUTE COUNT (BEAKER) (test 0.17 K/ L 0.00-0.50 nnbb=617) BASOPHILS ABSOLUTE COUNT (BEAKER) (test 0.04 K/ L 0.00-0.20 tnuf=417) 0.00BASIC METABOLIC [id number] 05:49:00 Test Item Value Reference Range Comments SODIUM (BEAKER) (test 131 meq/L 136-145 yvpn=191) POTASSIUM (BEAKER) (test 4.3 meq/L 3.5-5.1 fyue=673) CHLORIDE (BEAKER) (test 97 meq/L 98-107 pgnw=025) CO2 (BEAKER) (test 26 meq/L 22-29 kbli=815) BLOOD UREA NITROGEN 17 mg/dL 7-21 (BEAKER) (test dzud=609) CREATININE (BEAKER) (test 0.87 mg/dL 0.57-1.25 jdul=553) GLUCOSE RANDOM (BEAKER) 101 mg/dL 70-105 (test xroh=617) CALCIUM (BEAKER) (test 8.5 mg/dL 8.4-10.2 rppi=606) EGFR (BEAKER) (test 87 mL/min/1.73 sq m ESTIMATED GFR IS NOT xdke=9747) ACCURATE CREATININE CLEARANCE IN PREDICTING GLOMERULAR FILTRATION RATE. ESTIMATED GFR IS NOT APPLICABLE FOR DIALYSIS PATIENTS. [id number] 05:25:00 Test Item Value Reference Range Comments PARTIAL THROMBOPLASTIN TIME (BEAKER) (test 83.0 seconds 22.5-36.0 ywhu=714) [id number] 22:17:00 Test Item Value Reference Range Comments PARTIAL THROMBOPLASTIN TIME (BEAKER) (test 91.0 seconds 22.5-36.0 tohp=132) [id number] 16:11:00 Test Item Value Reference Range Comments PARTIAL THROMBOPLASTIN TIME (BEAKER) (test 94.0 seconds 22.5-36.0 rmds=951) [id number] 09:42:00 Test Item Value Reference Range Comments PARTIAL THROMBOPLASTIN TIME (BEAKER) (test 89.9 seconds 22.5-36.0 wmli=981) [id number] 02:30:00 Test Item Value Reference Range Comments PARTIAL THROMBOPLASTIN TIME (BEAKER) (test 108.5 seconds 22.5-36.0 uhbq=024) [id number] 18:47:00 Test Item Value Reference Range Comments PARTIAL THROMBOPLASTIN TIME (BEAKER) (test 74.1 seconds 22.5-36.0 lzgl=508) [id number] 12:42:00 Test Item Value Reference Range Comments PARTIAL THROMBOPLASTIN TIME (BEAKER) (test 48.7 seconds 22.5-36.0 esro=435) BASIC METABOLIC [id number] 05:29:00 Test Item Value Reference Range Comments SODIUM (BEAKER) (test 126 meq/L 136-145 rqva=425) POTASSIUM (BEAKER) (test 5.0 meq/L 3.5-5.1 shix=118) CHLORIDE (BEAKER) (test 92 meq/L 98-107 wjpa=482) CO2 (BEAKER) (test 23 meq/L 22-29 ayzx=595) BLOOD UREA NITROGEN 30 mg/dL 7-21 (BEAKER) (test suxj=808) CREATININE (BEAKER) (test 1.03 mg/dL 0.57-1.25 kyey=860) GLUCOSE RANDOM (BEAKER) 112 mg/dL 70-105 (test cgmc=647) CALCIUM (BEAKER) (test 9.0 mg/dL 8.4-10.2 mwvu=178) EGFR (BEAKER) (test 72 mL/min/1.73 sq m ESTIMATED GFR IS NOT qywv=5635) ACCURATE CREATININE CLEARANCE IN PREDICTING GLOMERULAR FILTRATION RATE. ESTIMATED GFR IS NOT APPLICABLE FOR DIALYSIS PATIENTS. [id number] 05:14:00 Test Item Value Reference Range Comments PARTIAL THROMBOPLASTIN TIME (BEAKER) (test 43.1 seconds 22.5-36.0 krzp=031) [id number] 22:32:00 Test Item Value Reference Range Comments PARTIAL THROMBOPLASTIN TIME (BEAKER) (test 42.2 seconds 22.5-36.0 jzra=758) [id number] 15:38:00 Test Item Value Reference Range Comments PARTIAL THROMBOPLASTIN TIME (BEAKER) (test 36.5 seconds 22.5-36.0 xlat=274) Prior to initiating heparinCBC (HEMOGRAM ONLY)[id number] 15:22:00 Test Item Value Reference Range Comments WHITE BLOOD CELL COUNT (BEAKER) (test jqpl=181) 11.9 K/ L 4.0-10.0 RED BLOOD CELL COUNT (BEAKER) (test klup=726) 3.65 M/ L 4.20-5.80 HEMOGLOBIN (BEAKER) (test zdjl=042) 11.2 GM/DL 13.0-16.8 HEMATOCRIT (BEAKER) (test zfbf=479) 31.7 % 40.0-50.0 MEAN CORPUSCULAR VOLUME (BEAKER) (test zxnm=391) 86.8 fL 82.0-98.0 MEAN CORPUSCULAR HEMOGLOBIN (BEAKER) (test 30.6 pg 27.0-33.0 zbnr=448) MEAN CORPUSCULAR HEMOGLOBIN CONC (BEAKER) (test 35.3 GM/DL 32.0-36.0 lcrk=356) RED CELL DISTRIBUTION WIDTH (BEAKER) (test 13.6 % 10.3-14.2 juzd=917) PLATELET COUNT (BEAKER) (test lyot=676) 132 K/CU MM 150-430 MEAN PLATELET VOLUME (BEAKER) (test hncm=741) 6.8 fL 6.5-10.5 NUCLEATED RED BLOOD CELLS (BEAKER) (test 0 /100 WBC 0-0 ucsw=030) 0.00BASIC METABOLIC [id number] 06:35:00 Test Item Value Reference Range Comments SODIUM (BEAKER) (test 125 meq/L 136-145 shae=467) POTASSIUM (BEAKER) (test 4.8 meq/L 3.5-5.1 ktex=395) CHLORIDE (BEAKER) (test 94 meq/L 98-107 wajx=417) CO2 (BEAKER) (test 19 meq/L 22-29 xfld=039) BLOOD UREA NITROGEN 29 mg/dL 7-21 (BEAKER) (test nskv=476) CREATININE (BEAKER) (test 1.12 mg/dL 0.57-1.25 kdfo=881) GLUCOSE RANDOM (BEAKER) 141 mg/dL 70-105 (test xkku=534) CALCIUM (BEAKER) (test 9.0 mg/dL 8.4-10.2 uzms=262) EGFR (BEAKER) (test 65 mL/min/1.73 sq m ESTIMATED GFR IS NOT kxrr=8815) ACCURATE CREATININE CLEARANCE IN PREDICTING GLOMERULAR FILTRATION RATE. ESTIMATED GFR IS NOT APPLICABLE FOR DIALYSIS PATIENTS. CBC (HEMOGRAM ONLY)2017-01-13 06:24:00 Test Item Value Reference Range Comments WHITE BLOOD CELL COUNT (BEAKER) (test khhx=805) 12.2 K/ L 4.0-10.0 RED BLOOD CELL COUNT (BEAKER) (test iwdg=098) 3.84 M/ L 4.20-5.80 HEMOGLOBIN (BEAKER) (test wxtz=924) 10.8 GM/DL 13.0-16.8 HEMATOCRIT (BEAKER) (test rmda=525) 32.9 % 40.0-50.0 MEAN CORPUSCULAR VOLUME (BEAKER) (test pdkr=170) 85.8 fL 82.0-98.0 MEAN CORPUSCULAR HEMOGLOBIN (BEAKER) (test 28.3 pg 27.0-33.0 uejc=180) MEAN CORPUSCULAR HEMOGLOBIN CONC (BEAKER) (test 33.0 GM/DL 32.0-36.0 cenq=638) RED CELL DISTRIBUTION WIDTH (BEAKER) (test 14.7 % 10.3-14.2 zaay=840) PLATELET COUNT (BEAKER) (test bnuq=633) 135 K/CU MM 150-430 MEAN PLATELET VOLUME (BEAKER) (test tsbj=598) 7.3 fL 6.5-10.5 NUCLEATED RED BLOOD CELLS (BEAKER) (test 0 /100 WBC 0-0 bgve=375) 0.00PHENYTOIN LEVEL, [id number] 06:21:00 Test Item Value Reference Range Comments PHENYTOIN (DILANTIN) (BEAKER) (test xzzm=748) 4.0 ug/mL 10.0-20.0 URINALYSIS W/ REFLEX URINE [id number] 12:57:00 Test Item Value Reference Range Comments COLOR (BEAKER) (test nqyu=115) Dark Yellow CLARITY (BEAKER) (test uhrd=096) Hazy SPECIFIC GRAVITY UA (BEAKER) (test hfqg=142) 1.040 1.001-1.035 PH UA (BEAKER) (test swus=624) 6.0 5.0-8.0 PROTEIN UA (BEAKER) (test rgyq=043) 100 mg/dL Negative GLUCOSE UA (BEAKER) (test oxww=375) Negative Negative KETONES UA (BEAKER) (test qprf=790) Trace Negative BILIRUBIN UA (BEAKER) (test pmvc=145) Negative Negative BLOOD UA (BEAKER) (test gfxt=244) Negative Negative NITRITE UA (BEAKER) (test uews=795) Negative Negative LEUKOCYTE ESTERASE UA (BEAKER) (test jsna=718) Negative Negative UROBILINOGEN UA (BEAKER) (test tggb=718) 2.0 mg/dL 0.2-1.0 RBC UA (BEAKER) (test rfao=530) 1 /HPF WBC UA (BEAKER) (test auaa=390) 4 /HPF MUCUS (BEAKER) (test dary=8432) Many HYALINE CASTS (BEAKER) (test pymq=453) 15 /LPF SOURCE(BEAKER) (test xeke=0579) HEPATIC FUNCTION [id number] 12:45:00 Test Item Value Reference Range Comments TOTAL PROTEIN (BEAKER) (test htxk=822) 7.0 gm/dL 6.0-8.3 ALBUMIN (BEAKER) (test bbnt=0644) 3.7 g/dL 3.5-5.0 BILIRUBIN TOTAL (BEAKER) (test hwwn=773) 0.5 mg/dL 0.2-1.2 BILIRUBIN DIRECT (BEAKER) (test tdoe=921) 0.2 mg/dL 0.1-0.5 ALKALINE PHOSPHATASE (BEAKER) (test lbrc=729) 99 U/L 40-150 AST (SGOT) (BEAKER) (test bowp=192) 18 U/L 5-34 ALT (SGPT) (BEAKER) (test nkhr=260) 22 U/L 6-55 BASIC METABOLIC [id number] 12:45:00 Test Item Value Reference Range Comments SODIUM (BEAKER) (test 130 meq/L 136-145 swpq=497) POTASSIUM (BEAKER) (test 4.3 meq/L 3.5-5.1 lpmr=346) CHLORIDE (BEAKER) (test 97 meq/L 98-107 ssab=334) CO2 (BEAKER) (test 21 meq/L 22-29 erdr=557) BLOOD UREA NITROGEN 21 mg/dL 7-21 (BEAKER) (test alkk=260) CREATININE (BEAKER) (test 1.19 mg/dL 0.57-1.25 ectj=004) GLUCOSE RANDOM (BEAKER) 139 mg/dL 70-105 (test urvr=043) CALCIUM (BEAKER) (test 8.7 mg/dL 8.4-10.2 dqdg=967) EGFR (BEAKER) (test 61 mL/min/1.73 sq m ESTIMATED GFR IS NOT znbk=9260) ACCURATE CREATININE CLEARANCE IN PREDICTING GLOMERULAR FILTRATION RATE. ESTIMATED GFR IS NOT APPLICABLE FOR DIALYSIS PATIENTS. CBC (HEMOGRAM ONLY)2017-01-12 12:33:00 Test Item Value Reference Range Comments WHITE BLOOD CELL COUNT (BEAKER) (test luce=605) 12.2 K/ L 4.0-10.0 RED BLOOD CELL COUNT (BEAKER) (test koop=805) 3.61 M/ L 4.20-5.80 HEMOGLOBIN (BEAKER) (test jyxp=172) 10.9 GM/DL 13.0-16.8 HEMATOCRIT (BEAKER) (test ncmh=201) 31.6 % 40.0-50.0 MEAN CORPUSCULAR VOLUME (BEAKER) (test pyvi=947) 87.4 fL 82.0-98.0 MEAN CORPUSCULAR HEMOGLOBIN (BEAKER) (test 30.1 pg 27.0-33.0 cnvl=885) MEAN CORPUSCULAR HEMOGLOBIN CONC (BEAKER) (test 34.4 GM/DL 32.0-36.0 bmks=044) RED CELL DISTRIBUTION WIDTH (BEAKER) (test 13.0 % 10.3-14.2 lvzs=323) PLATELET COUNT (BEAKER) (test xyxh=994) 131 K/CU MM 150-430 MEAN PLATELET VOLUME (BEAKER) (test igbw=501) 6.6 fL 6.5-10.5 NUCLEATED RED BLOOD CELLS (BEAKER) (test 0 /100 WBC 0-0 xcse=964) 0.00POCT-GLUCOSE [id number] 11:53:00 Test Item Value Reference Range Comments POC-GLUCOSE METER (BEAKER) 117 mg/dL 70-110 TESTED AT [facility] [address] (test fnng=9128) [facility] [address] CBC W/PLT COUNT & AUTO [id number] 07:10:00 Test Item Value Reference Range Comments WHITE BLOOD CELL COUNT (BEAKER) (test jycw=415) 3.7 K/ L 4.0-10.0 RED BLOOD CELL COUNT (BEAKER) (test shmj=275) 3.87 M/ L 4.20-5.80 HEMOGLOBIN (BEAKER) (test bgtn=215) 11.7 GM/DL 13.0-16.8 HEMATOCRIT (BEAKER) (test jdkp=206) 34.6 % 40.0-50.0 MEAN CORPUSCULAR VOLUME (BEAKER) (test mjua=986) 89.6 fL 82.0-98.0 MEAN CORPUSCULAR HEMOGLOBIN (BEAKER) (test 30.4 pg 27.0-33.0 brxs=576) MEAN CORPUSCULAR HEMOGLOBIN CONC (BEAKER) (test 33.9 GM/DL 32.0-36.0 zmfr=514) RED CELL DISTRIBUTION WIDTH (BEAKER) (test 12.0 % 10.3-14.2 crgf=871) PLATELET COUNT (BEAKER) (test zuhd=731) 158 K/CU MM 150-430 MEAN PLATELET VOLUME (BEAKER) (test ccej=296) 6.6 fL 6.5-10.5 NUCLEATED RED BLOOD CELLS (BEAKER) (test 0 /100 WBC 0-0 jjtk=617) NEUTROPHILS RELATIVE PERCENT (BEAKER) (test 65 % exdw=634) LYMPHOCYTES RELATIVE PERCENT (BEAKER) (test 18 % vbdz=767) MONOCYTES RELATIVE PERCENT (BEAKER) (test 11 % jfzm=302) EOSINOPHILS RELATIVE PERCENT (BEAKER) (test 6 % juty=485) BASOPHILS RELATIVE PERCENT (BEAKER) (test 0 % zjxg=973) NEUTROPHILS ABSOLUTE COUNT (BEAKER) (test 2.40 K/ L 1.80-8.00 wrhh=274) LYMPHOCYTES ABSOLUTE COUNT (BEAKER) (test 0.68 K/ L 1.48-4.50 xnuv=385) MONOCYTES ABSOLUTE COUNT (BEAKER) (test 0.40 K/ L 0.00-1.30 snqi=182) EOSINOPHILS ABSOLUTE COUNT (BEAKER) (test 0.23 K/ L 0.00-0.50 znsh=704) BASOPHILS ABSOLUTE COUNT (BEAKER) (test 0.01 K/ L 0.00-0.20 niyg=316) 0.00PT/[id number] 15:06:00 Test Item Value Reference Range Comments PROTIME (BEAKER) (test ekke=573) 14.8 seconds 11.7-14.7 INR (BEAKER) (test wmpq=673) 1.2 <=5.9 PARTIAL THROMBOPLASTIN TIME (BEAKER) (test 29.1 seconds 22.5-36.0 uefw=987) RECOMMENDED COUMADIN/WARFARIN INR THERAPY RANGESSTANDARD DOSE: 2.0 - 3.0 Includes: PROPHYLAXIS forvenous thrombosis, systemic embolization; TREATMENT for venous thrombosis and/or pulmonary embolus.HIGH RISK: Target INR is 2.5-3.5 for patients with mechanical heart valves.POCT-GLUCOSE [id number] 12:02:00 Test Item Value Reference Range Comments POC-GLUCOSE METER (BEAKER) 137 mg/dL 70-110 TESTED AT [facility] [address] [facility] (test ajaq=8155) [facility] [address] BASIC METABOLIC [id number] 05:46:00 Test Item Value Reference Range Comments SODIUM (BEAKER) (test 134 meq/L 136-145 nvgj=539) POTASSIUM (BEAKER) (test 3.9 meq/L 3.5-5.1 drih=887) CHLORIDE (BEAKER) (test 101 meq/L 98-107 ueea=487) CO2 (BEAKER) (test 25 meq/L 22-29 yksu=698) BLOOD UREA NITROGEN 10 mg/dL 7-21 (BEAKER) (test klzu=494) CREATININE (BEAKER) (test 0.82 mg/dL 0.57-1.25 eptz=814) GLUCOSE RANDOM (BEAKER) 102 mg/dL 70-105 (test jrka=812) CALCIUM (BEAKER) (test 8.6 mg/dL 8.4-10.2 ejwu=583) EGFR (BEAKER) (test 93 mL/min/1.73 sq m ESTIMATED GFR IS NOT zbkm=9594) ACCURATE CREATININE CLEARANCE IN PREDICTING GLOMERULAR FILTRATION RATE. ESTIMATED GFR IS NOT APPLICABLE FOR DIALYSIS PATIENTS. CBC W/PLT COUNT & AUTO [id number] 05:44:00 Test Item Value Reference Range Comments WHITE BLOOD CELL COUNT (BEAKER) (test mnah=981) 3.9 K/ L 4.0-10.0 RED BLOOD CELL COUNT (BEAKER) (test jdaw=205) 3.89 M/ L 4.20-5.80 HEMOGLOBIN (BEAKER) (test eudp=448) 11.8 GM/DL 13.0-16.8 HEMATOCRIT (BEAKER) (test vqxi=210) 35.0 % 40.0-50.0 MEAN CORPUSCULAR VOLUME (BEAKER) (test jooh=483) 90.0 fL 82.0-98.0 MEAN CORPUSCULAR HEMOGLOBIN (BEAKER) (test 30.4 pg 27.0-33.0 jwxg=851) MEAN CORPUSCULAR HEMOGLOBIN CONC (BEAKER) (test 33.8 GM/DL 32.0-36.0 dinn=705) RED CELL DISTRIBUTION WIDTH (BEAKER) (test 11.9 % 10.3-14.2 ubwm=455) PLATELET COUNT (BEAKER) (test msld=339) 160 K/CU MM 150-430 MEAN PLATELET VOLUME (BEAKER) (test qmji=442) 6.3 fL 6.5-10.5 NUCLEATED RED BLOOD CELLS (BEAKER) (test 0 /100 WBC 0-0 nvdy=253) NEUTROPHILS RELATIVE PERCENT (BEAKER) (test 68 % sfxf=446) LYMPHOCYTES RELATIVE PERCENT (BEAKER) (test 14 % piwe=932) MONOCYTES RELATIVE PERCENT (BEAKER) (test 11 % vgkd=376) EOSINOPHILS RELATIVE PERCENT (BEAKER) (test 8 % kflm=131) BASOPHILS RELATIVE PERCENT (BEAKER) (test 0 % bsto=151) NEUTROPHILS ABSOLUTE COUNT (BEAKER) (test 2.66 K/ L 1.80-8.00 jusr=327) LYMPHOCYTES ABSOLUTE COUNT (BEAKER) (test 0.54 K/ L 1.48-4.50 kbck=318) MONOCYTES ABSOLUTE COUNT (BEAKER) (test 0.42 K/ L 0.00-1.30 agpo=778) EOSINOPHILS ABSOLUTE COUNT (BEAKER) (test 0.31 K/ L 0.00-0.50 hyls=421) BASOPHILS ABSOLUTE COUNT (BEAKER) (test 0.01 K/ L 0.00-0.20 zuxt=777) 0.00POCT-GLUCOSE [id number] 01:09:00 Test Item Value Reference Range Comments POC-GLUCOSE METER (BEAKER) 105 mg/dL 70-110 TESTED AT [address] (test iyaf=1211) [facility] [address] POCT-GLUCOSE [id number] 17:33:00 Test Item Value Reference Range Comments POC-GLUCOSE METER (BEAKER) 123 mg/dL 70-110 TESTED AT [address] (test deyp=8071) [facility] [address] POCT-GLUCOSE [id number] 12:08:00 Test Item Value Reference Range Comments POC-GLUCOSE METER (BEAKER) 104 mg/dL 70-110 TESTED AT [address] (test hdjy=4743) [facility] [address] POCT-GLUCOSE [id number] 06:26:00 Test Item Value Reference Range Comments POC-GLUCOSE METER (BEAKER) 139 mg/dL 70-110 TESTED AT [address] (test fssz=2021) [facility] [address] BASIC METABOLIC [id number] 04:04:00 Test Item Value Reference Range Comments SODIUM (BEAKER) (test 137 meq/L 136-145 axnc=561) POTASSIUM (BEAKER) (test 3.8 meq/L 3.5-5.1 cxgp=421) CHLORIDE (BEAKER) (test 104 meq/L 98-107 iixw=055) CO2 (BEAKER) (test 25 meq/L 22-29 aaok=365) BLOOD UREA NITROGEN 15 mg/dL 7-21 (BEAKER) (test cdqb=889) CREATININE (BEAKER) (test 0.83 mg/dL 0.57-1.25 cfaz=960) GLUCOSE RANDOM (BEAKER) 114 mg/dL 70-105 (test glqj=255) CALCIUM (BEAKER) (test 8.5 mg/dL 8.4-10.2 wjnc=736) EGFR (BEAKER) (test 92 mL/min/1.73 sq m ESTIMATED GFR IS NOT uxbz=7978) ACCURATE CREATININE CLEARANCE IN PREDICTING GLOMERULAR FILTRATION RATE. ESTIMATED GFR IS NOT APPLICABLE FOR DIALYSIS PATIENTS. CBC W/PLT COUNT & AUTO [id number] 03:54:00 Test Item Value Reference Range Comments WHITE BLOOD CELL COUNT (BEAKER) (test npmh=670) 4.4 K/ L 4.0-10.0 RED BLOOD CELL COUNT (BEAKER) (test hswp=140) 3.67 M/ L 4.20-5.80 HEMOGLOBIN (BEAKER) (test itmt=511) 11.2 GM/DL 13.0-16.8 HEMATOCRIT (BEAKER) (test dsvr=038) 32.9 % 40.0-50.0 MEAN CORPUSCULAR VOLUME (BEAKER) (test mxri=151) 89.8 fL 82.0-98.0 MEAN CORPUSCULAR HEMOGLOBIN (BEAKER) (test 30.4 pg 27.0-33.0 exfc=998) MEAN CORPUSCULAR HEMOGLOBIN CONC (BEAKER) (test 33.9 GM/DL 32.0-36.0 xfbr=367) RED CELL DISTRIBUTION WIDTH (BEAKER) (test 12.0 % 10.3-14.2 mmoa=724) PLATELET COUNT (BEAKER) (test jbws=883) 162 K/CU MM 150-430 MEAN PLATELET VOLUME (BEAKER) (test sveo=455) 6.1 fL 6.5-10.5 NUCLEATED RED BLOOD CELLS (BEAKER) (test 0 /100 WBC 0-0 efrf=542) NEUTROPHILS RELATIVE PERCENT (BEAKER) (test 68 % avog=560) LYMPHOCYTES RELATIVE PERCENT (BEAKER) (test 14 % vvct=143) MONOCYTES RELATIVE PERCENT (BEAKER) (test 11 % nyvs=062) EOSINOPHILS RELATIVE PERCENT (BEAKER) (test 8 % rdst=299) BASOPHILS RELATIVE PERCENT (BEAKER) (test 0 % pvsm=380) NEUTROPHILS ABSOLUTE COUNT (BEAKER) (test 2.96 K/ L 1.80-8.00 yiah=865) LYMPHOCYTES ABSOLUTE COUNT (BEAKER) (test 0.59 K/ L 1.48-4.50 qlxt=856) MONOCYTES ABSOLUTE COUNT (BEAKER) (test 0.47 K/ L 0.00-1.30 amja=304) EOSINOPHILS ABSOLUTE COUNT (BEAKER) (test 0.33 K/ L 0.00-0.50 rohg=817) BASOPHILS ABSOLUTE COUNT (BEAKER) (test 0.02 K/ L 0.00-0.20 wwlq=259) 0.00POCT-GLUCOSE [id number] 00:30:00 Test Item Value Reference Range Comments POC-GLUCOSE METER (BEAKER) 106 mg/dL 70-110 TESTED AT [facility] [address] [facility] (test bdpk=6620) [facility] [address] POCT-GLUCOSE [id number] 17:47:00 Test Item Value Reference Range Comments POC-GLUCOSE METER (BEAKER) 158 mg/dL 70-110 TESTED AT [facility] [address] [facility] (test pujs=4896) [facility] [address] POCT-GLUCOSE [id number] 12:41:00 Test Item Value Reference Range Comments POC-GLUCOSE METER (BEAKER) 184 mg/dL 70-110 TESTED AT [place] [id number] [facility] (test hvpo=2243) [facility] [address] BASIC METABOLIC [id number] 07:20:00 Test Item Value Reference Range Comments SODIUM (BEAKER) (test 132 meq/L 136-145 jima=804) POTASSIUM (BEAKER) (test 3.8 meq/L 3.5-5.1 yczs=551) CHLORIDE (BEAKER) (test 103 meq/L 98-107 wdve=372) CO2 (BEAKER) (test 21 meq/L 22-29 xytc=406) BLOOD UREA NITROGEN 10 mg/dL 7-21 (BEAKER) (test vqea=339) CREATININE (BEAKER) (test 0.76 mg/dL 0.57-1.25 lddm=485) GLUCOSE RANDOM (BEAKER) 105 mg/dL 70-105 (test xitd=639) CALCIUM (BEAKER) (test 8.4 mg/dL 8.4-10.2 ommn=210) EGFR (BEAKER) (test 102 mL/min/1.73 sq m ESTIMATED GFR IS NOT oiph=4983) ACCURATE CREATININE CLEARANCE IN PREDICTING GLOMERULAR FILTRATION RATE. ESTIMATED GFR IS NOT APPLICABLE FOR DIALYSIS PATIENTS. CBC W/PLT COUNT & AUTO [id number] 06:56:00 Test Item Value Reference Range Comments WHITE BLOOD CELL COUNT (BEAKER) (test etil=886) 3.9 K/ L 4.0-10.0 RED BLOOD CELL COUNT (BEAKER) (test jekw=797) 3.68 M/ L 4.20-5.80 HEMOGLOBIN (BEAKER) (test csac=450) 11.0 GM/DL 13.0-16.8 HEMATOCRIT (BEAKER) (test znzt=067) 32.7 % 40.0-50.0 MEAN CORPUSCULAR VOLUME (BEAKER) (test vmla=425) 88.9 fL 82.0-98.0 MEAN CORPUSCULAR HEMOGLOBIN (BEAKER) (test 29.9 pg 27.0-33.0 tzfa=775) MEAN CORPUSCULAR HEMOGLOBIN CONC (BEAKER) (test 33.6 GM/DL 32.0-36.0 zdeg=074) RED CELL DISTRIBUTION WIDTH (BEAKER) (test 11.7 % 10.3-14.2 prtj=932) PLATELET COUNT (BEAKER) (test jmcm=584) 188 K/CU MM 150-430 MEAN PLATELET VOLUME (BEAKER) (test hdck=363) 6.3 fL 6.5-10.5 NUCLEATED RED BLOOD CELLS (BEAKER) (test 0 /100 WBC 0-0 gxno=574) NEUTROPHILS RELATIVE PERCENT (BEAKER) (test 68 % lkek=501) LYMPHOCYTES RELATIVE PERCENT (BEAKER) (test 13 % zbxe=369) MONOCYTES RELATIVE PERCENT (BEAKER) (test 11 % bpwd=383) EOSINOPHILS RELATIVE PERCENT (BEAKER) (test 8 % zrkq=797) BASOPHILS RELATIVE PERCENT (BEAKER) (test 0 % prhk=575) NEUTROPHILS ABSOLUTE COUNT (BEAKER) (test 2.64 K/ L 1.80-8.00 ucgs=673) LYMPHOCYTES ABSOLUTE COUNT (BEAKER) (test 0.52 K/ L 1.48-4.50 xjmm=043) MONOCYTES ABSOLUTE COUNT (BEAKER) (test 0.42 K/ L 0.00-1.30 zula=772) EOSINOPHILS ABSOLUTE COUNT (BEAKER) (test 0.31 K/ L 0.00-0.50 tbij=573) BASOPHILS ABSOLUTE COUNT (BEAKER) (test 0.02 K/ L 0.00-0.20 pajb=850) 0.00POCT-GLUCOSE [id number] 06:28:00 Test Item Value Reference Range Comments POC-GLUCOSE METER (BEAKER) 130 mg/dL 70-110 TESTED AT [address] (test xlzb=7526) [facility] [address] POCT-GLUCOSE [id number] 00:19:00 Test Item Value Reference Range Comments POC-GLUCOSE METER (BEAKER) 124 mg/dL 70-110 TESTED AT [address] (test yqiy=2275) [facility] [address] POCT-GLUCOSE [id number] 18:43:00 Test Item Value Reference Range Comments POC-GLUCOSE METER (BEAKER) 92 mg/dL 70-110 TESTED AT [facility] [address] [facility] (test braj=9788) [facility] [address] POCT-GLUCOSE [id number] 12:34:00 Test Item Value Reference Range Comments POC-GLUCOSE METER (BEAKER) 176 mg/dL 70-110 TESTED AT [facility] [address] [facility] (test vgwq=4877) [facility] [address] CBC W/PLT COUNT & AUTO [id number] 09:33:00 Test Item Value Reference Range Comments WHITE BLOOD CELL COUNT (BEAKER) (test lfri=220) 4.3 K/ L 4.0-10.0 RED BLOOD CELL COUNT (BEAKER) (test kcbc=819) 3.67 M/ L 4.20-5.80 HEMOGLOBIN (BEAKER) (test iypc=133) 11.2 GM/DL 13.0-16.8 HEMATOCRIT (BEAKER) (test kjbm=912) 32.8 % 40.0-50.0 MEAN CORPUSCULAR VOLUME (BEAKER) (test peur=015) 89.4 fL 82.0-98.0 MEAN CORPUSCULAR HEMOGLOBIN (BEAKER) (test 30.5 pg 27.0-33.0 vuuv=193) MEAN CORPUSCULAR HEMOGLOBIN CONC (BEAKER) (test 34.1 GM/DL 32.0-36.0 ymkk=437) RED CELL DISTRIBUTION WIDTH (BEAKER) (test 11.7 % 10.3-14.2 tecv=334) PLATELET COUNT (BEAKER) (test urzh=846) 199 K/CU MM 150-430 MEAN PLATELET VOLUME (BEAKER) (test uzoq=396) 6.2 fL 6.5-10.5 NUCLEATED RED BLOOD CELLS (BEAKER) (test 0 /100 WBC 0-0 hyzy=109) NEUTROPHILS RELATIVE PERCENT (BEAKER) (test 77 % ffxu=913) LYMPHOCYTES RELATIVE PERCENT (BEAKER) (test 10 % torx=421) MONOCYTES RELATIVE PERCENT (BEAKER) (test 9 % vohz=497) EOSINOPHILS RELATIVE PERCENT (BEAKER) (test 3 % dtpt=932) BASOPHILS RELATIVE PERCENT (BEAKER) (test 0 % bktf=298) NEUTROPHILS ABSOLUTE COUNT (BEAKER) (test 3.34 K/ L 1.80-8.00 wjah=313) LYMPHOCYTES ABSOLUTE COUNT (BEAKER) (test 0.43 K/ L 1.48-4.50 yydz=377) MONOCYTES ABSOLUTE COUNT (BEAKER) (test 0.40 K/ L 0.00-1.30 ulls=281) EOSINOPHILS ABSOLUTE COUNT (BEAKER) (test 0.14 K/ L 0.00-0.50 hohn=591) BASOPHILS ABSOLUTE COUNT (BEAKER) (test 0.02 K/ L 0.00-0.20 pvoz=746) 0.00COMPREHENSIVE METABOLIC [id number] 08:56:00 Test Item Value Reference Range Comments TOTAL PROTEIN (BEAKER) 6.4 gm/dL 6.0-8.3 Specimen slightly (test rclo=175) hemolyzed ALBUMIN (BEAKER) (test 3.3 g/dL 3.5-5.0 Specimen slightly chln=2654) hemolyzed ALKALINE PHOSPHATASE 61 U/L 40-150 (BEAKER) (test kajw=102) BILIRUBIN TOTAL (BEAKER) 0.5 mg/dL 0.2-1.2 Specimen slightly (test neuk=812) hemolyzed SODIUM (BEAKER) (test 135 meq/L 136-145 cwbc=197) POTASSIUM (BEAKER) (test 4.6 meq/L 3.5-5.1 Specimen slightly djfr=743) hemolyzed CHLORIDE (BEAKER) (test 106 meq/L 98-107 gjdp=224) CO2 (BEAKER) (test 17 meq/L 22-29 yfgg=773) BLOOD UREA NITROGEN 10 mg/dL 7-21 (BEAKER) (test spdh=446) CREATININE (BEAKER) (test 0.80 mg/dL 0.57-1.25 Specimen slightly uxly=429) hemolyzed GLUCOSE RANDOM (BEAKER) 97 mg/dL 70-105 (test gizv=811) CALCIUM (BEAKER) (test 8.6 mg/dL 8.4-10.2 ypds=846) AST (SGOT) (BEAKER) (test 37 U/L 5-34 Specimen slightly publ=900) hemolyzed ALT (SGPT) (BEAKER) (test 20 U/L 6-55 Specimen slightly jwzm=746) hemolyzed EGFR (BEAKER) (test 96 mL/min/1.73 sq m ESTIMATED GFR IS NOT tchc=1022) ACCURATE CREATININE CLEARANCE IN PREDICTING GLOMERULAR FILTRATION RATE. ESTIMATED GFR IS NOT APPLICABLE FOR DIALYSIS PATIENTS. POCT-GLUCOSE [id number] 05:58:00 Test Item Value Reference Range Comments POC-GLUCOSE METER (BEAKER) 96 mg/dL 70-110 TESTED AT [address] (test yuar=4309) [place] [id number] POCT-GLUCOSE [id number] 00:23:00 Test Item Value Reference Range Comments POC-GLUCOSE METER (BEAKER) 110 mg/dL 70-110 TESTED AT [address] (test dhnv=7370) [place] [address] POCT-GLUCOSE [id number] 17:48:00 Test Item Value Reference Range Comments POC-GLUCOSE METER (BEAKER) 100 mg/dL 70-110 TESTED AT [address] (test ssrf=0896) [place] [address] POCT-GLUCOSE [id number] 12:09:00 Test Item Value Reference Range Comments POC-GLUCOSE METER (BEAKER) 103 mg/dL 70-110 TESTED AT [address] (test iuub=8351) [place] [address] URINE [id number] 08:43:00 Test Item Value Reference Range Comments CULTURE (BEAKER) (test dtxa=8005) No growth BASIC METABOLIC [id number] 06:59:00 Test Item Value Reference Range Comments SODIUM (BEAKER) (test 139 meq/L 136-145 zpyc=236) POTASSIUM (BEAKER) (test 4.0 meq/L 3.5-5.1 djyt=101) CHLORIDE (BEAKER) (test 107 meq/L 98-107 oovp=100) CO2 (BEAKER) (test 23 meq/L 22-29 oodu=985) BLOOD UREA NITROGEN 9 mg/dL 7-21 (BEAKER) (test stet=476) CREATININE (BEAKER) (test 0.79 mg/dL 0.57-1.25 orsd=440) GLUCOSE RANDOM (BEAKER) 111 mg/dL 70-105 (test aflf=735) CALCIUM (BEAKER) (test 8.6 mg/dL 8.4-10.2 gnba=207) EGFR (BEAKER) (test 97 mL/min/1.73 sq m ESTIMATED GFR IS NOT baaz=4378) ACCURATE CREATININE CLEARANCE IN PREDICTING GLOMERULAR FILTRATION RATE. ESTIMATED GFR IS NOT APPLICABLE FOR DIALYSIS PATIENTS. POCT-GLUCOSE [id number] 06:02:00 Test Item Value Reference Range Comments POC-GLUCOSE METER (BEAKER) 102 mg/dL 70-110 TESTED AT [facility] [address] (test kxsf=3410) [place] [address] PHENYTOIN LEVEL, [id number] 05:51:00 Test Item Value Reference Range Comments PHENYTOIN (DILANTIN) (BEAKER) (test xngi=864) 7.3 ug/mL 10.0-20.0 CBC W/PLT COUNT & AUTO [id number] 05:41:00 Test Item Value Reference Range Comments WHITE BLOOD CELL COUNT (BEAKER) (test vnag=374) 4.9 K/ L 4.0-10.0 RED BLOOD CELL COUNT (BEAKER) (test zkrf=144) 3.61 M/ L 4.20-5.80 HEMOGLOBIN (BEAKER) (test akwk=427) 11.5 GM/DL 13.0-16.8 HEMATOCRIT (BEAKER) (test ukrj=759) 31.7 % 40.0-50.0 MEAN CORPUSCULAR VOLUME (BEAKER) (test ydci=784) 87.9 fL 82.0-98.0 MEAN CORPUSCULAR HEMOGLOBIN (BEAKER) (test 31.8 pg 27.0-33.0 kvhm=948) MEAN CORPUSCULAR HEMOGLOBIN CONC (BEAKER) (test 36.2 GM/DL 32.0-36.0 oypt=446) RED CELL DISTRIBUTION WIDTH (BEAKER) (test 13.1 % 10.3-14.2 pjzz=726) PLATELET COUNT (BEAKER) (test qclt=241) 200 K/CU MM 150-430 MEAN PLATELET VOLUME (BEAKER) (test ihyz=569) 6.7 fL 6.5-10.5 NUCLEATED RED BLOOD CELLS (BEAKER) (test 0 /100 WBC 0-0 uquz=848) NEUTROPHILS RELATIVE PERCENT (BEAKER) (test 75 % vzpc=269) LYMPHOCYTES RELATIVE PERCENT (BEAKER) (test 10 % dbly=030) MONOCYTES RELATIVE PERCENT (BEAKER) (test 10 % cylr=780) EOSINOPHILS RELATIVE PERCENT (BEAKER) (test 5 % jxtn=686) BASOPHILS RELATIVE PERCENT (BEAKER) (test 0 % fidx=518) NEUTROPHILS ABSOLUTE COUNT (BEAKER) (test 3.69 K/ L 1.80-8.00 jnds=268) LYMPHOCYTES ABSOLUTE COUNT (BEAKER) (test 0.52 K/ L 1.48-4.50 zjxv=191) MONOCYTES ABSOLUTE COUNT (BEAKER) (test 0.50 K/ L 0.00-1.30 iumk=249) EOSINOPHILS ABSOLUTE COUNT (BEAKER) (test 0.23 K/ L 0.00-0.50 pglt=734) BASOPHILS ABSOLUTE COUNT (BEAKER) (test 0.01 K/ L 0.00-0.20 kcjn=707) 0.00POCT-GLUCOSE [id number] 03:20:00 Test Item Value Reference Range Comments POC-GLUCOSE METER (BEAKER) 121 mg/dL 70-110 TESTED AT [address] (test vwze=6749) [place] [address] POCT-GLUCOSE [id number] 18:47:00 Test Item Value Reference Range Comments POC-GLUCOSE METER (BEAKER) 116 mg/dL 70-110 TESTED AT [address] (test isfj=8635) [place] [address] PLATELET AGGREGATION: FUNCTION [id number] 13:09:00 Test Item Value Reference Range Comments WEAK ADP RESULT(BEAKER) (test 100 % 60-91 zpir=9269) PLATELET FUNCTION SCREEN 60-100% indicates normal INTERP (BEAKER) (test platelet function ubfe=1989) [id number] (BEAKER) Justin Goel MD (electronic (test xufv=5195) signature) PLATELET COUNT AGG (BEAKER) 181 K/CU MM 150-430 (test ztpk=2333) PHENYTOIN LEVEL, [id number] 13:01:00 Test Item Value Reference Range Comments PHENYTOIN (DILANTIN) (BEAKER) (test cbsb=650) 8.6 ug/mL 10.0-20.0 POCT-GLUCOSE [id number] 12:17:00 Test Item Value Reference Range Comments POC-GLUCOSE METER (BEAKER) 103 mg/dL 70-110 TESTED AT [address] (test tpue=1905) [place] [address] POCT-GLUCOSE [id number] 06:29:00 Test Item Value Reference Range Comments POC-GLUCOSE METER (BEAKER) 93 mg/dL 70-110 TESTED AT [facility] [address] (test uwrt=2266) [facility] [address] [id number] 05:36:00 Test Item Value Reference Range Comments MAGNESIUM (BEAKER) (test jksv=242) 1.7 mg/dL 1.6-2.6 BASIC METABOLIC [id number] 05:36:00 Test Item Value Reference Range Comments SODIUM (BEAKER) (test 136 meq/L 136-145 jdtt=672) POTASSIUM (BEAKER) (test 3.9 meq/L 3.5-5.1 bbdp=544) CHLORIDE (BEAKER) (test 105 meq/L 98-107 pbeu=002) CO2 (BEAKER) (test 18 meq/L 22-29 aanm=730) BLOOD UREA NITROGEN 11 mg/dL 7-21 (BEAKER) (test jhfs=818) CREATININE (BEAKER) (test 0.80 mg/dL 0.57-1.25 dofn=018) GLUCOSE RANDOM (BEAKER) 87 mg/dL 70-105 (test dvpe=727) CALCIUM (BEAKER) (test 8.7 mg/dL 8.4-10.2 dswr=337) EGFR (BEAKER) (test 96 mL/min/1.73 sq m ESTIMATED GFR IS NOT fzax=1927) ACCURATE CREATININE CLEARANCE IN PREDICTING GLOMERULAR FILTRATION RATE. ESTIMATED GFR IS NOT APPLICABLE FOR DIALYSIS PATIENTS. CBC W/PLT COUNT & AUTO [id number] 05:22:00 Test Item Value Reference Range Comments WHITE BLOOD CELL COUNT (BEAKER) (test fcew=279) 5.3 K/ L 4.0-10.0 RED BLOOD CELL COUNT (BEAKER) (test bjeo=532) 3.69 M/ L 4.20-5.80 HEMOGLOBIN (BEAKER) (test quub=036) 11.6 GM/DL 13.0-16.8 HEMATOCRIT (BEAKER) (test svqh=965) 33.4 % 40.0-50.0 MEAN CORPUSCULAR VOLUME (BEAKER) (test kcnt=767) 90.6 fL 82.0-98.0 MEAN CORPUSCULAR HEMOGLOBIN (BEAKER) (test 31.4 pg 27.0-33.0 qmqa=352) MEAN CORPUSCULAR HEMOGLOBIN CONC (BEAKER) (test 34.6 GM/DL 32.0-36.0 avkg=881) RED CELL DISTRIBUTION WIDTH (BEAKER) (test 11.9 % 10.3-14.2 rbdb=837) PLATELET COUNT (BEAKER) (test jlqn=002) 164 K/CU MM 150-430 MEAN PLATELET VOLUME (BEAKER) (test ebtu=604) 7.3 fL 6.5-10.5 NUCLEATED RED BLOOD CELLS (BEAKER) (test 0 /100 WBC 0-0 dvqt=764) NEUTROPHILS RELATIVE PERCENT (BEAKER) (test 76 % febl=036) LYMPHOCYTES RELATIVE PERCENT (BEAKER) (test 11 % eepy=365) MONOCYTES RELATIVE PERCENT (BEAKER) (test 9 % xfgb=347) EOSINOPHILS RELATIVE PERCENT (BEAKER) (test 5 % ziot=854) BASOPHILS RELATIVE PERCENT (BEAKER) (test 0 % qzmy=446) NEUTROPHILS ABSOLUTE COUNT (BEAKER) (test 4.02 K/ L 1.80-8.00 hkng=187) LYMPHOCYTES ABSOLUTE COUNT (BEAKER) (test 0.57 K/ L 1.48-4.50 balf=370) MONOCYTES ABSOLUTE COUNT (BEAKER) (test 0.48 K/ L 0.00-1.30 eczw=821) EOSINOPHILS ABSOLUTE COUNT (BEAKER) (test 0.24 K/ L 0.00-0.50 wjyg=997) BASOPHILS ABSOLUTE COUNT (BEAKER) (test 0.01 K/ L 0.00-0.20 cknp=734) 0.00POCT-GLUCOSE [id number] 00:30:00 Test Item Value Reference Range Comments POC-GLUCOSE METER (BEAKER) 97 mg/dL 70-110 TESTED AT [address] (test ptpe=7097) [place] [id number] POCT-GLUCOSE [id number] 18:12:00 Test Item Value Reference Range Comments POC-GLUCOSE METER (BEAKER) 97 mg/dL 70-110 TESTED AT [address] (test jioa=9089) [place] [id number] PLATELET AGGREGATION: FUNCTION [id number] 13:04:00 Test Item Value Reference Range Comments WEAK ADP RESULT(BEAKER) (test 100 % 60-91 gfpz=8168) PLATELET FUNCTION SCREEN 60-100% indicates normal INTERP (BEAKER) (test platelet function trdc=6964) [id number] (BEAKER) Justin Goel MD (electronic (test fpma=7439) signature) PLATELET COUNT AGG (BEAKER) 142 K/CU MM 150-430 (test cvib=4337) POCT-GLUCOSE [id number] 12:12:00 Test Item Value Reference Range Comments POC-GLUCOSE METER (BEAKER) 98 mg/dL 70-110 TESTED AT [facility] [address] [facility] (test jptm=9046) [facility] [address] [id number] 10:53:00 Test Item Value Reference Range Comments D-DIMER QUANTITATIVE (BEAKER) (test vlfy=621) 2.83 MG/L FEU <0.50 Intended Use: The [...] exclusion of thrombosis is within 95-100% range.THROMBIN [id number] 10:51:00 Test Item Value Reference Range Comments THROMBIN TIME (BEAKER) (test joaw=335) 15.0 secs 13.8-20.0 [id number] 10:50:00 Test Item Value Reference Range Comments FIBRINOGEN LEVEL (BEAKER) (test yogx=914) 462 mg/dl 225-434 URINALYSIS W/ [id number] 09:54:00 Test Item Value Reference Range Comments COLOR (BEAKER) (test euto=490) Yellow CLARITY (BEAKER) (test muvh=824) Cloudy SPECIFIC GRAVITY UA (BEAKER) (test vtle=202) 1.017 1.001-1.035 PH UA (BEAKER) (test ouab=171) 5.0 5.0-8.0 PROTEIN UA (BEAKER) (test rgzv=479) 20 mg/dL Negative GLUCOSE UA (BEAKER) (test gwiq=623) Negative Negative KETONES UA (BEAKER) (test yspa=764) 60 mg/dL Negative BILIRUBIN UA (BEAKER) (test tlrq=858) Negative Negative BLOOD UA (BEAKER) (test rjvv=949) Small Negative NITRITE UA (BEAKER) (test dird=026) Negative Negative LEUKOCYTE ESTERASE UA (BEAKER) (test jjyb=755) Large Negative UROBILINOGEN UA (BEAKER) (test ezad=634) 0.2 mg/dL 0.2-1.0 RBC UA (BEAKER) (test vzno=012) 5 /HPF WBC UA (BEAKER) (test ddzv=854) 55 /HPF BACTERIA (BEAKER) (test xcyt=269) Moderate MUCUS (BEAKER) (test chiv=7552) Occasional SQUAMOUS EPITHELIAL (BEAKER) (test shil=736) < /HPF HYALINE CASTS (BEAKER) (test qcym=674) 1 /LPF URIC ACID CRYSTALS (BEAKER) (test vjhs=4870) Occasional SOURCE(BEAKER) (test cllr=3433) Urine, [place] CBC W/PLT COUNT & AUTO [id number] 09:17:00 Test Item Value Reference Range Comments WHITE BLOOD CELL COUNT (BEAKER) (test txtg=712) 6.3 K/ L 4.0-10.0 RED BLOOD CELL COUNT (BEAKER) (test yerh=617) 3.63 M/ L 4.20-5.80 HEMOGLOBIN (BEAKER) (test cnye=741) 11.3 GM/DL 13.0-16.8 HEMATOCRIT (BEAKER) (test yduq=654) 32.9 % 40.0-50.0 MEAN CORPUSCULAR VOLUME (BEAKER) (test eqnj=757) 90.6 fL 82.0-98.0 MEAN CORPUSCULAR HEMOGLOBIN (BEAKER) (test 31.0 pg 27.0-33.0 qjqw=377) MEAN CORPUSCULAR HEMOGLOBIN CONC (BEAKER) (test 34.3 GM/DL 32.0-36.0 ldma=886) RED CELL DISTRIBUTION WIDTH (BEAKER) (test 12.0 % 10.3-14.2 tsky=282) PLATELET COUNT (BEAKER) (test xzcl=376) 133 K/CU MM 150-430 MEAN PLATELET VOLUME (BEAKER) (test fbit=167) 7.2 fL 6.5-10.5 NUCLEATED RED BLOOD CELLS (BEAKER) (test 0 /100 WBC 0-0 jwxw=601) NEUTROPHILS RELATIVE PERCENT (BEAKER) (test 76 % iivo=603) LYMPHOCYTES RELATIVE PERCENT (BEAKER) (test 9 % srbr=387) MONOCYTES RELATIVE PERCENT (BEAKER) (test 10 % tnsq=900) EOSINOPHILS RELATIVE PERCENT (BEAKER) (test 4 % ewvh=570) BASOPHILS RELATIVE PERCENT (BEAKER) (test 1 % sgdc=733) NEUTROPHILS ABSOLUTE COUNT (BEAKER) (test 4.78 K/ L 1.80-8.00 abpr=639) LYMPHOCYTES ABSOLUTE COUNT (BEAKER) (test 0.58 K/ L 1.48-4.50 rwsq=039) MONOCYTES ABSOLUTE COUNT (BEAKER) (test 0.60 K/ L 0.00-1.30 oiaz=864) EOSINOPHILS ABSOLUTE COUNT (BEAKER) (test 0.26 K/ L 0.00-0.50 aqkw=593) BASOPHILS ABSOLUTE COUNT (BEAKER) (test 0.04 K/ L 0.00-0.20 wzqp=477) 0.00PHENYTOIN LEVEL, [id number] 05:46:00 Test Item Value Reference Range Comments PHENYTOIN (DILANTIN) (BEAKER) (test hwbs=525) 1.1 ug/mL 10.0-20.0 BASIC METABOLIC [id number] 05:39:00 Test Item Value Reference Range Comments SODIUM (BEAKER) (test 134 meq/L 136-145 dstz=922) POTASSIUM (BEAKER) (test 3.8 meq/L 3.5-5.1 jixp=383) CHLORIDE (BEAKER) (test 105 meq/L 98-107 lzhj=101) CO2 (BEAKER) (test 20 meq/L 22-29 ozic=194) BLOOD UREA NITROGEN 11 mg/dL 7-21 (BEAKER) (test ahwi=006) CREATININE (BEAKER) (test 0.74 mg/dL 0.57-1.25 nogs=770) GLUCOSE RANDOM (BEAKER) 98 mg/dL 70-105 (test izcs=191) CALCIUM (BEAKER) (test 8.5 mg/dL 8.4-10.2 ohmr=445) EGFR (BEAKER) (test 105 mL/min/1.73 sq m ESTIMATED GFR IS NOT qyyc=1631) ACCURATE CREATININE CLEARANCE IN PREDICTING GLOMERULAR FILTRATION RATE. ESTIMATED GFR IS NOT APPLICABLE FOR DIALYSIS PATIENTS. POCT-GLUCOSE [id number] 00:45:00 Test Item Value Reference Range Comments POC-GLUCOSE METER (BEAKER) 93 mg/dL 70-110 TESTED AT [address] (test lzco=1392) [facility] [address] POCT-GLUCOSE [id number] 18:47:00 Test Item Value Reference Range Comments POC-GLUCOSE METER (BEAKER) 113 mg/dL 70-110 TESTED AT [address] (test yagd=3294) [facility] [address] POCT-GLUCOSE [id number] 12:26:00 Test Item Value Reference Range Comments POC-GLUCOSE METER (BEAKER) 125 mg/dL 70-110 TESTED AT [address] (test hkoi=0253) [facility] [address] POCT-GLUCOSE [id number] 06:19:00 Test Item Value Reference Range Comments POC-GLUCOSE METER (BEAKER) 128 mg/dL 70-110 TESTED AT [address] (test bxmi=4316) [facility] [address] COMPREHENSIVE METABOLIC [id number] 04:41:00 Test Item Value Reference Range Comments TOTAL PROTEIN (BEAKER) 6.1 gm/dL 6.0-8.3 (test kwtz=563) ALBUMIN (BEAKER) (test 3.4 g/dL 3.5-5.0 ihfe=6635) ALKALINE PHOSPHATASE 56 U/L 40-150 (BEAKER) (test pmey=312) BILIRUBIN TOTAL (BEAKER) 0.7 mg/dL 0.2-1.2 (test ewqz=241) SODIUM (BEAKER) (test 137 meq/L 136-145 eaee=417) POTASSIUM (BEAKER) (test 4.3 meq/L 3.5-5.1 wdga=442) CHLORIDE (BEAKER) (test 110 meq/L 98-107 ooii=914) CO2 (BEAKER) (test 15 meq/L 22-29 qlvx=148) BLOOD UREA NITROGEN 14 mg/dL 7-21 (BEAKER) (test cfaj=055) CREATININE (BEAKER) (test 0.88 mg/dL 0.57-1.25 tnpo=357) GLUCOSE RANDOM (BEAKER) 122 mg/dL 70-105 (test zymt=758) CALCIUM (BEAKER) (test 8.9 mg/dL 8.4-10.2 maea=984) AST (SGOT) (BEAKER) (test 37 U/L 5-34 rqqg=015) ALT (SGPT) (BEAKER) (test 19 U/L 6-55 etdl=589) EGFR (BEAKER) (test 86 mL/min/1.73 sq m ESTIMATED GFR IS NOT cttl=7368) ACCURATE CREATININE CLEARANCE IN PREDICTING GLOMERULAR FILTRATION RATE. ESTIMATED GFR IS NOT APPLICABLE FOR DIALYSIS PATIENTS. CBC W/PLT COUNT & AUTO [id number] 04:33:00 Test Item Value Reference Range Comments WHITE BLOOD CELL COUNT (BEAKER) (test wriv=186) 6.4 K/ L 4.0-10.0 RED BLOOD CELL COUNT (BEAKER) (test unfm=594) 4.07 M/ L 4.20-5.80 HEMOGLOBIN (BEAKER) (test nkjs=459) 12.3 GM/DL 13.0-16.8 HEMATOCRIT (BEAKER) (test cyko=635) 36.7 % 40.0-50.0 MEAN CORPUSCULAR VOLUME (BEAKER) (test qcmc=234) 90.1 fL 82.0-98.0 MEAN CORPUSCULAR HEMOGLOBIN (BEAKER) (test 30.3 pg 27.0-33.0 ynpr=624) MEAN CORPUSCULAR HEMOGLOBIN CONC (BEAKER) (test 33.7 GM/DL 32.0-36.0 agsb=837) RED CELL DISTRIBUTION WIDTH (BEAKER) (test 12.1 % 10.3-14.2 mpbe=590) PLATELET COUNT (BEAKER) (test odpp=307) 152 K/CU MM 150-430 MEAN PLATELET VOLUME (BEAKER) (test fbbf=263) 7.0 fL 6.5-10.5 NUCLEATED RED BLOOD CELLS (BEAKER) (test 0 /100 WBC 0-0 vnnw=773) NEUTROPHILS RELATIVE PERCENT (BEAKER) (test 82 % yzxr=485) LYMPHOCYTES RELATIVE PERCENT (BEAKER) (test 6 % mggm=135) MONOCYTES RELATIVE PERCENT (BEAKER) (test 11 % vazo=769) EOSINOPHILS RELATIVE PERCENT (BEAKER) (test 1 % syrb=038) BASOPHILS RELATIVE PERCENT (BEAKER) (test 0 % yqfy=317) NEUTROPHILS ABSOLUTE COUNT (BEAKER) (test 5.23 K/ L 1.80-8.00 soxw=465) LYMPHOCYTES ABSOLUTE COUNT (BEAKER) (test 0.39 K/ L 1.48-4.50 sttb=288) MONOCYTES ABSOLUTE COUNT (BEAKER) (test 0.68 K/ L 0.00-1.30 oead=232) EOSINOPHILS ABSOLUTE COUNT (BEAKER) (test 0.04 K/ L 0.00-0.50 exti=600) BASOPHILS ABSOLUTE COUNT (BEAKER) (test 0.02 K/ L 0.00-0.20 htmh=340) 0.00POCT-GLUCOSE [id number] 00:50:00 Test Item Value Reference Range Comments POC-GLUCOSE METER (BEAKER) 117 mg/dL 70-110 TESTED AT [address] (test gcsp=3709) [place] [id number] POCT-GLUCOSE [id number] 17:18:00 Test Item Value Reference Range Comments POC-GLUCOSE METER (BEAKER) 101 mg/dL 70-110 TESTED AT [address] (test chab=5545) [place] [id number] POCT-GLUCOSE [id number] 12:59:00 Test Item Value Reference Range Comments POC-GLUCOSE METER (BEAKER) 80 mg/dL 70-110 TESTED AT [address] (test alyo=8398) [facility] [id number] POCT-GLUCOSE [id number] 12:07:00 Test Item Value Reference Range Comments POC-GLUCOSE METER (BEAKER) 76 mg/dL 70-110 TESTED AT [address] (test erkp=9111) [place] [id number] POCT-GLUCOSE [id number] 06:18:00 Test Item Value Reference Range Comments POC-GLUCOSE METER (BEAKER) 86 mg/dL 70-110 TESTED AT [address] (test hzxr=7005) [place] [id number] 06:06:00 Test Item Value Reference Range Comments PHOSPHORUS (BEAKER) (test ungm=884) 2.8 mg/dL 2.3-4.7 Once on admission and Daily AM afterwardsOnce on admission and Daily AM [id number] 06:06:00 Test Item Value Reference Range Comments MAGNESIUM (BEAKER) (test ajot=863) 1.8 mg/dL 1.6-2.6 Once on admission and Daily AM afterwardsOnce on admission and Daily AM afterwardsCOMPREHENSIVE METABOLIC [id number] 06:06:00 Test Item Value Reference Range Comments TOTAL PROTEIN (BEAKER) 6.5 gm/dL 6.0-8.3 (test kvxr=757) ALBUMIN (BEAKER) (test 3.6 g/dL 3.5-5.0 jwix=2146) ALKALINE PHOSPHATASE 56 U/L 40-150 (BEAKER) (test fvbi=297) BILIRUBIN TOTAL (BEAKER) 0.8 mg/dL 0.2-1.2 (test lhkl=492) SODIUM (BEAKER) (test 137 meq/L 136-145 dgrz=856) POTASSIUM (BEAKER) (test 4.6 meq/L 3.5-5.1 yiik=479) CHLORIDE (BEAKER) (test 107 meq/L 98-107 xdkk=131) CO2 (BEAKER) (test 21 meq/L 22-29 puhw=204) BLOOD UREA NITROGEN 16 mg/dL 7-21 (BEAKER) (test cdxf=046) CREATININE (BEAKER) (test 0.88 mg/dL 0.57-1.25 ycjs=873) GLUCOSE RANDOM (BEAKER) 86 mg/dL 70-105 (test fysx=288) CALCIUM (BEAKER) (test 8.8 mg/dL 8.4-10.2 fmvu=728) AST (SGOT) (BEAKER) (test 27 U/L 5-34 kdey=899) ALT (SGPT) (BEAKER) (test 15 U/L 6-55 osht=011) EGFR (BEAKER) (test 86 mL/min/1.73 sq m ESTIMATED GFR IS NOT tmzj=7727) ACCURATE CREATININE CLEARANCE IN PREDICTING GLOMERULAR FILTRATION RATE. ESTIMATED GFR IS NOT APPLICABLE FOR DIALYSIS PATIENTS. Once on admission and Daily AM afterwardsOnce on admission and Daily AM afterwardsCBC W/PLT COUNT & AUTO [id number] 06:01:00 Test Item Value Reference Range Comments WHITE BLOOD CELL COUNT (BEAKER) (test sjoz=546) 4.8 K/ L 4.0-10.0 RED BLOOD CELL COUNT (BEAKER) (test rnlw=001) 4.26 M/ L 4.20-5.80 HEMOGLOBIN (BEAKER) (test wzbb=431) 12.8 GM/DL 13.0-16.8 HEMATOCRIT (BEAKER) (test kgat=733) 37.8 % 40.0-50.0 MEAN CORPUSCULAR VOLUME (BEAKER) (test vome=567) 88.6 fL 82.0-98.0 MEAN CORPUSCULAR HEMOGLOBIN (BEAKER) (test 29.9 pg 27.0-33.0 kfsz=746) MEAN CORPUSCULAR HEMOGLOBIN CONC (BEAKER) (test 33.8 GM/DL 32.0-36.0 dlaw=334) RED CELL DISTRIBUTION WIDTH (BEAKER) (test 12.9 % 10.3-14.2 pdut=745) PLATELET COUNT (BEAKER) (test lvnf=987) 142 K/CU MM 150-430 MEAN PLATELET VOLUME (BEAKER) (test mtvg=875) 7.1 fL 6.5-10.5 NUCLEATED RED BLOOD CELLS (BEAKER) (test 0 /100 WBC 0-0 kxks=222) NEUTROPHILS RELATIVE PERCENT (BEAKER) (test 79 % imiy=908) LYMPHOCYTES RELATIVE PERCENT (BEAKER) (test 10 % wvud=205) MONOCYTES RELATIVE PERCENT (BEAKER) (test 9 % tyqt=253) EOSINOPHILS RELATIVE PERCENT (BEAKER) (test 2 % kpdr=098) BASOPHILS RELATIVE PERCENT (BEAKER) (test 0 % vgap=620) NEUTROPHILS ABSOLUTE COUNT (BEAKER) (test 3.74 K/ L 1.80-8.00 bfzu=459) LYMPHOCYTES ABSOLUTE COUNT (BEAKER) (test 0.48 K/ L 1.48-4.50 odji=875) MONOCYTES ABSOLUTE COUNT (BEAKER) (test 0.44 K/ L 0.00-1.30 rgyk=742) EOSINOPHILS ABSOLUTE COUNT (BEAKER) (test 0.08 K/ L 0.00-0.50 xedf=521) BASOPHILS ABSOLUTE COUNT (BEAKER) (test 0.01 K/ L 0.00-0.20 mjem=455) [id number] 01:40:00 Test Item Value Reference Range Comments POTASSIUM (BEAKER) (test ilkx=633) 4.0 meq/L 3.5-5.1 [id number] 01:40:00 Test Item Value Reference Range Comments SODIUM (BEAKER) (test eaqr=373) 138 meq/L 136-145 POCT-GLUCOSE [id number] 00:19:00 Test Item Value Reference Range Comments POC-GLUCOSE METER (BEAKER) 89 mg/dL 70-110 TESTED AT [facility] [address] (test bidb=0370) [place] [address] [id number] 21:37:00 Test Item Value Reference Range Comments SODIUM (BEAKER) (test ixfr=519) 137 meq/L 136-145 [id number] 19:02:00 Test Item Value Reference Range Comments PARTIAL THROMBOPLASTIN TIME (BEAKER) (test 24.9 seconds 22.5-36.0 pfgf=189) PROTHROMBIN [id number] 19:01:00 Test Item Value Reference Range Comments PROTIME (BEAKER) (test qwag=401) 13.8 seconds 11.7-14.7 INR (BEAKER) (test pkem=198) 1.1 <=5.9 RECOMMENDED COUMADIN/WARFARIN INR THERAPY RANGESSTANDARD DOSE: 2.0 - 3.0 Includes: PROPHYLAXIS forvenous thrombosis, systemic embolization; TREATMENT for venous thrombosis and/or pulmonary embolus.HIGH RISK: Target INR is 2.5-3.5 for patients with mechanical heart valves.[id number] 19:00:00 Test Item Value Reference Range Comments POTASSIUM (BEAKER) (test bvos=890) 4.0 meq/L 3.5-5.1 [id number] 19:00:00 Test Item Value Reference Range Comments SODIUM (BEAKER) (test qxdp=001) 137 meq/L 136-145 HEPATIC FUNCTION [id number] 19:00:00 Test Item Value Reference Range Comments TOTAL PROTEIN (BEAKER) (test suyt=789) 7.0 gm/dL 6.0-8.3 ALBUMIN (BEAKER) (test qwfp=8458) 3.9 g/dL 3.5-5.0 BILIRUBIN TOTAL (BEAKER) (test eqfq=536) 0.8 mg/dL 0.2-1.2 BILIRUBIN DIRECT (BEAKER) (test kxca=477) 0.3 mg/dL 0.1-0.5 ALKALINE PHOSPHATASE (BEAKER) (test ymrm=477) 60 U/L 40-150 AST (SGOT) (BEAKER) (test mlhf=678) 22 U/L 5-34 ALT (SGPT) (BEAKER) (test obnj=294) 16 U/L 6-55 POCT-GLUCOSE [id number] 18:42:00 Test Item Value Reference Range Comments POC-GLUCOSE METER (BEAKER) 96 mg/dL 70-110 TESTED AT [facility] [address] (test lhxb=6730) [facility] [address] PLATELET AGGREGATION: FUNCTION [id number] 11:40:00 Test Item Value Reference Range Comments WEAK ADP RESULT(BEAKER) (test 50 % 60-91 yhnf=5929) PLATELET FUNCTION SCREEN 50-59% indicates mild platelet INTERP (BEAKER) (test dysfunction hrak=1891) [id number] Justin Goel MD (electronic (BEAKER) (test snso=4207) signature) PLATELET COUNT AGG (BEAKER) 124 K/CU MM 150-430 (test vurx=8465) [id number] 05:44:00 Test Item Value Reference Range Comments PHOSPHORUS (BEAKER) (test txxu=377) 3.1 mg/dL 2.3-4.7 [id number] 05:44:00 Test Item Value Reference Range Comments MAGNESIUM (BEAKER) (test rjff=818) 1.9 mg/dL 1.6-2.6 COMPREHENSIVE METABOLIC [id number] 05:44:00 Test Item Value Reference Range Comments TOTAL PROTEIN (BEAKER) 6.6 gm/dL 6.0-8.3 (test dmbq=443) ALBUMIN (BEAKER) (test 3.7 g/dL 3.5-5.0 yjlx=4110) ALKALINE PHOSPHATASE 56 U/L 40-150 (BEAKER) (test iwzf=382) BILIRUBIN TOTAL (BEAKER) 0.5 mg/dL 0.2-1.2 (test mauc=820) SODIUM (BEAKER) (test 137 meq/L 136-145 iexl=528) POTASSIUM (BEAKER) (test 4.0 meq/L 3.5-5.1 ocey=959) CHLORIDE (BEAKER) (test 107 meq/L 98-107 lzlt=594) CO2 (BEAKER) (test 21 meq/L 22-29 ebgk=051) BLOOD UREA NITROGEN 20 mg/dL 7-21 (BEAKER) (test fphi=732) CREATININE (BEAKER) (test 0.94 mg/dL 0.57-1.25 wvwa=704) GLUCOSE RANDOM (BEAKER) 106 mg/dL 70-105 (test zheg=168) CALCIUM (BEAKER) (test 8.8 mg/dL 8.4-10.2 fnre=259) AST (SGOT) (BEAKER) (test 16 U/L 5-34 pftf=189) ALT (SGPT) (BEAKER) (test 12 U/L 6-55 fvrh=957) EGFR (BEAKER) (test 80 mL/min/1.73 sq m ESTIMATED GFR IS NOT jumx=6129) ACCURATE CREATININE CLEARANCE IN PREDICTING GLOMERULAR FILTRATION RATE. ESTIMATED GFR IS NOT APPLICABLE FOR DIALYSIS PATIENTS. CBC W/PLT COUNT & AUTO [id number] 05:29:00 Test Item Value Reference Range Comments WHITE BLOOD CELL COUNT (BEAKER) (test wkje=339) 3.5 K/ L 4.0-10.0 RED BLOOD CELL COUNT (BEAKER) (test pcmc=653) 4.21 M/ L 4.20-5.80 HEMOGLOBIN (BEAKER) (test iafk=466) 12.8 GM/DL 13.0-16.8 HEMATOCRIT (BEAKER) (test ruoh=699) 37.2 % 40.0-50.0 MEAN CORPUSCULAR VOLUME (BEAKER) (test pnlx=626) 88.2 fL 82.0-98.0 MEAN CORPUSCULAR HEMOGLOBIN (BEAKER) (test 30.3 pg 27.0-33.0 skpj=385) MEAN CORPUSCULAR HEMOGLOBIN CONC (BEAKER) (test 34.3 GM/DL 32.0-36.0 clhv=635) RED CELL DISTRIBUTION WIDTH (BEAKER) (test 12.9 % 10.3-14.2 dtlu=073) PLATELET COUNT (BEAKER) (test qale=880) 128 K/CU MM 150-430 MEAN PLATELET VOLUME (BEAKER) (test gtmg=483) 7.1 fL 6.5-10.5 NUCLEATED RED BLOOD CELLS (BEAKER) (test 0 /100 WBC 0-0 dilf=057) NEUTROPHILS RELATIVE PERCENT (BEAKER) (test 70 % xjcn=741) LYMPHOCYTES RELATIVE PERCENT (BEAKER) (test 16 % lqbi=545) MONOCYTES RELATIVE PERCENT (BEAKER) (test 10 % hmot=252) EOSINOPHILS RELATIVE PERCENT (BEAKER) (test 5 % gmdm=984) BASOPHILS RELATIVE PERCENT (BEAKER) (test 0 % xafy=418) NEUTROPHILS ABSOLUTE COUNT (BEAKER) (test 2.42 K/ L 1.80-8.00 zzjg=997) LYMPHOCYTES ABSOLUTE COUNT (BEAKER) (test 0.54 K/ L 1.48-4.50 nnlm=624) MONOCYTES ABSOLUTE COUNT (BEAKER) (test 0.33 K/ L 0.00-1.30 pdsm=188) EOSINOPHILS ABSOLUTE COUNT (BEAKER) (test 0.17 K/ L 0.00-0.50 hpjt=098) BASOPHILS ABSOLUTE COUNT (BEAKER) (test 0.02 K/ L 0.00-0.20 ssin=011) 0.00URINALYSIS W/ REFLEX URINE [id number] 22:30:00 Test Item Value Reference Range Comments COLOR (BEAKER) (test jkso=428) Yellow CLARITY (BEAKER) (test btgg=176) Clear SPECIFIC GRAVITY UA (BEAKER) (test cbov=086) 1.050 1.001-1.035 PH UA (BEAKER) (test ixyn=914) 6.0 5.0-8.0 PROTEIN UA (BEAKER) (test pjch=654) 20 mg/dL Negative GLUCOSE UA (BEAKER) (test gjyx=720) Negative Negative KETONES UA (BEAKER) (test kbxm=992) 40 mg/dL Negative BILIRUBIN UA (BEAKER) (test rclw=722) Negative Negative BLOOD UA (BEAKER) (test qmwg=443) Negative Negative NITRITE UA (BEAKER) (test gtfz=747) Negative Negative LEUKOCYTE ESTERASE UA (BEAKER) (test vdmc=372) Negative Negative UROBILINOGEN UA (BEAKER) (test pyck=042) 2.0 mg/dL 0.2-1.0 RBC UA (BEAKER) (test uifa=399) /HPF None Seen WBC UA (BEAKER) (test hbsi=342) /HPF None Seen SOURCE(BEAKER) (test coss=2719) TSH/FREE T4 IF [id number] 14:45:00 Test Item Value Reference Range Comments THYROID STIMULATING HORMONE (BEAKER) (test 2.66 uIU/mL 0.35-4.94 yioy=543) VITAMIN B12 AND [id number] 14:45:00 Test Item Value Reference Range Comments VITAMIN B12 (BEAKER) (test hpoh=744) 815 pg/mL 213-816 FOLATE (BEAKER) (test llxa=937) 15.4 ng/mL >=7.0 Effective 07/06/2014: Folate Reference Range ChangeNew: >=7.0 Previous: & gt;=5.4VALPROIC ACID LEVEL, [id number] 14:18:00 Test Item Value Reference Range Comments VALPROIC ACID TOTAL (BEAKER) (test swuj=916) 24 ug/mL 50-100 Therapeutic range for some clinical conditions may be >100 ug/[id number]- 05-07 14:02:00 Test Item Value Reference Range Comments AMMONIA (BEAKER) (test ypik=821) 35 mol/L 18-72 BLOOD GAS, [id number] 13:50:00 Test Item Value Reference Range Comments PH ARTERIAL (BEAKER) (test tvku=289) 7.47 7.35-7.45 PCO2 ARTERIAL (BEAKER) (test gwhs=303) 35 mmHg 35-45 PO2 ARTERIAL (BEAKER) (test yani=501) 78 mmHg 80-90 O2 SATURATION ARTERIAL (BEAKER) (test zltd=779) 96.3 % 96.0-97.0 HCO3 ARTERIAL (BEAKER) (test zkfy=193) 25 mmol/L 21-29 BASE EXCESS ARTERIAL (BEAKER) (test agpt=580) 1.2 mmol/L -2.0-3.0 PATIENT TEMPERATURE (BEAKER) (test pjkc=8881) 36.9 C FIO2 (BEAKER) (test cnrr=5949) 21.0 % [id number] 10:49:00 Test Item Value Reference Range Comments PROTIME (BEAKER) (test pvbq=884) 14.7 seconds 11.7-14.7 INR (BEAKER) (test pznt=511) 1.2 <=5.9 PARTIAL THROMBOPLASTIN TIME (BEAKER) (test 31.8 seconds 22.5-36.0 nmzm=684) RECOMMENDED COUMADIN/WARFARIN INR THERAPY RANGESSTANDARD DOSE: 2.0 - 3.0 Includes: PROPHYLAXIS forvenous thrombosis, systemic embolization; TREATMENT for venous thrombosis and/or pulmonary embolus.HIGH RISK: Target INR is 2.5-3.5 for patients with mechanical heart valves.PROTHROMBIN [id number] 10:48: 00 Test Item Value Reference Range Comments PROTIME (BEAKER) (test hrit=237) 14.7 seconds 11.7-14.7 INR (BEAKER) (test mhsb=039) 1.2 <=5.9 RECOMMENDED COUMADIN/WARFARIN INR THERAPY RANGESSTANDARD DOSE: 2.0 - 3.0 Includes: PROPHYLAXIS forvenous thrombosis, systemic embolization; TREATMENT for venous thrombosis and/or pulmonary embolus.HIGH RISK: Target INR is 2.5-3.5 for patients with mechanical heart valves.POCT-GLUCOSE [id number] 07:47:00 Test Item Value Reference Range Comments POC-GLUCOSE METER (BEAKER) 95 mg/dL 70-110 TESTED AT [facility] [address] [facility] (test xtkz=0525) [facility] [address] BASIC METABOLIC [id number] 04:59:00 Test Item Value Reference Range Comments SODIUM (BEAKER) (test 140 meq/L 136-145 wmyy=335) POTASSIUM (BEAKER) (test 4.1 meq/L 3.5-5.1 onla=275) CHLORIDE (BEAKER) (test 109 meq/L 98-107 pdia=869) CO2 (BEAKER) (test 22 meq/L 22-29 lwjm=146) BLOOD UREA NITROGEN 19 mg/dL 7-21 (BEAKER) (test cbca=008) CREATININE (BEAKER) (test 0.95 mg/dL 0.57-1.25 uewr=763) GLUCOSE RANDOM (BEAKER) 97 mg/dL 70-105 (test cuvz=037) CALCIUM (BEAKER) (test 8.2 mg/dL 8.4-10.2 vkmh=468) EGFR (BEAKER) (test 79 mL/min/1.73 sq m ESTIMATED GFR IS NOT cjys=8150) ACCURATE CREATININE CLEARANCE IN PREDICTING GLOMERULAR FILTRATION RATE. ESTIMATED GFR IS NOT APPLICABLE FOR DIALYSIS PATIENTS. CBC W/PLT COUNT & AUTO [id number] 04:49:00 Test Item Value Reference Range Comments WHITE BLOOD CELL COUNT (BEAKER) (test atuw=898) 6.3 K/ L 4.0-10.0 RED BLOOD CELL COUNT (BEAKER) (test fsrm=698) 3.77 M/ L 4.20-5.80 HEMOGLOBIN (BEAKER) (test zgjo=589) 11.1 GM/DL 13.0-16.8 HEMATOCRIT (BEAKER) (test rtlx=371) 34.8 % 40.0-50.0 MEAN CORPUSCULAR VOLUME (BEAKER) (test bgnd=437) 92.4 fL 82.0-98.0 MEAN CORPUSCULAR HEMOGLOBIN (BEAKER) (test 29.4 pg 27.0-33.0 zrbx=928) MEAN CORPUSCULAR HEMOGLOBIN CONC (BEAKER) (test 31.8 GM/DL 32.0-36.0 fhnb=201) RED CELL DISTRIBUTION WIDTH (BEAKER) (test 12.3 % 10.3-14.2 lqvf=786) PLATELET COUNT (BEAKER) (test uuem=602) 156 K/CU MM 150-430 MEAN PLATELET VOLUME (BEAKER) (test tdzn=359) 6.9 fL 6.5-10.5 NUCLEATED RED BLOOD CELLS (BEAKER) (test 0 /100 WBC 0-0 csgu=292) NEUTROPHILS RELATIVE PERCENT (BEAKER) (test 75 % qasq=782) LYMPHOCYTES RELATIVE PERCENT (BEAKER) (test 16 % bisw=630) MONOCYTES RELATIVE PERCENT (BEAKER) (test 9 % bivx=780) EOSINOPHILS RELATIVE PERCENT (BEAKER) (test 1 % sens=241) BASOPHILS RELATIVE PERCENT (BEAKER) (test 0 % myuu=870) NEUTROPHILS ABSOLUTE COUNT (BEAKER) (test 4.68 K/ L 1.80-8.00 omps=690) LYMPHOCYTES ABSOLUTE COUNT (BEAKER) (test 0.98 K/ L 1.48-4.50 sgci=799) MONOCYTES ABSOLUTE COUNT (BEAKER) (test 0.56 K/ L 0.00-1.30 jgbb=350) EOSINOPHILS ABSOLUTE COUNT (BEAKER) (test 0.04 K/ L 0.00-0.50 aspi=279) BASOPHILS ABSOLUTE COUNT (BEAKER) (test 0.02 K/ L 0.00-0.20 gybk=423) 0.00POCT-GLUCOSE [id number] 04:02:00 Test Item Value Reference Range Comments POC-GLUCOSE METER (BEAKER) 114 mg/dL 70-110 TESTED AT [facility] [address] [facility] (test xsko=6728) [facility] [address] POCT-GLUCOSE [id number] 07:17:00 Test Item Value Reference Range Comments POC-GLUCOSE METER (BEAKER) 134 mg/dL 70-110 TESTED AT [facility] [address] [facility] (test vjya=7106) [facility] [address] BASIC METABOLIC [id number] 03:52:00 Test Item Value Reference Range Comments SODIUM (BEAKER) (test 137 meq/L 136-145 akux=136) POTASSIUM (BEAKER) (test 4.7 meq/L 3.5-5.1 Specimen slightly jlgi=006) hemolyzed CHLORIDE (BEAKER) (test 110 meq/L 98-107 xmmc=219) CO2 (BEAKER) (test 20 meq/L 22-29 poig=336) BLOOD UREA NITROGEN 21 mg/dL 7-21 (BEAKER) (test bzpj=599) CREATININE (BEAKER) (test 0.97 mg/dL 0.57-1.25 Specimen slightly mwmx=844) hemolyzed GLUCOSE RANDOM (BEAKER) 140 mg/dL 70-105 (test acpa=341) CALCIUM (BEAKER) (test 7.7 mg/dL 8.4-10.2 pjrh=476) EGFR (BEAKER) (test 77 mL/min/1.73 sq m ESTIMATED GFR IS NOT xebm=6291) ACCURATE CREATININE CLEARANCE IN PREDICTING GLOMERULAR FILTRATION RATE. ESTIMATED GFR IS NOT APPLICABLE FOR DIALYSIS PATIENTS. [id number] 03:34:00 Test Item Value Reference Range Comments MAGNESIUM (BEAKER) (test 2.1 mg/dL 1.6-2.6 Specimen slightly hemolyzed hicz=870) [id number] 03:34:00 Test Item Value Reference Range Comments PHOSPHORUS (BEAKER) (test 2.5 mg/dL 2.3-4.7 Specimen slightly hemolyzed anbk=022) CBC W/PLT COUNT & AUTO [id number] 03:20:00 Test Item Value Reference Range Comments WHITE BLOOD CELL COUNT (BEAKER) (test dlvm=764) 7.8 K/ L 4.0-10.0 RED BLOOD CELL COUNT (BEAKER) (test djzj=383) 3.73 M/ L 4.20-5.80 HEMOGLOBIN (BEAKER) (test jydh=821) 11.7 GM/DL 13.0-16.8 HEMATOCRIT (BEAKER) (test ofix=753) 34.4 % 40.0-50.0 MEAN CORPUSCULAR VOLUME (BEAKER) (test egtx=629) 92.3 fL 82.0-98.0 MEAN CORPUSCULAR HEMOGLOBIN (BEAKER) (test 31.5 pg 27.0-33.0 eryr=104) MEAN CORPUSCULAR HEMOGLOBIN CONC (BEAKER) (test 34.1 GM/DL 32.0-36.0 mzjp=538) RED CELL DISTRIBUTION WIDTH (BEAKER) (test 13.3 % 10.3-14.2 qopy=326) PLATELET COUNT (BEAKER) (test okrv=415) 158 K/CU MM 150-430 MEAN PLATELET VOLUME (BEAKER) (test wsyz=433) 6.9 fL 6.5-10.5 NUCLEATED RED BLOOD CELLS (BEAKER) (test 0 /100 WBC 0-0 hchc=632) NEUTROPHILS RELATIVE PERCENT (BEAKER) (test 90 % yxol=040) LYMPHOCYTES RELATIVE PERCENT (BEAKER) (test 4 % vvqe=956) MONOCYTES RELATIVE PERCENT (BEAKER) (test 6 % lfol=198) EOSINOPHILS RELATIVE PERCENT (BEAKER) (test 0 % mvqx=206) BASOPHILS RELATIVE PERCENT (BEAKER) (test 0 % xttc=062) NEUTROPHILS ABSOLUTE COUNT (BEAKER) (test 6.98 K/ L 1.80-8.00 mjhj=095) LYMPHOCYTES ABSOLUTE COUNT (BEAKER) (test 0.30 K/ L 1.48-4.50 plsd=063) MONOCYTES ABSOLUTE COUNT (BEAKER) (test 0.46 K/ L 0.00-1.30 bhbq=031) EOSINOPHILS ABSOLUTE COUNT (BEAKER) (test 0.01 K/ L 0.00-0.50 rnky=988) BASOPHILS ABSOLUTE COUNT (BEAKER) (test 0.00 K/ L 0.00-0.20 yihk=118) 0.00POCT-GLUCOSE [id number] 02:04:00 Test Item Value Reference Range Comments POC-GLUCOSE METER (BEAKER) 126 mg/dL 70-110 TESTED AT [address] (test ngff=6666) [facility] [id number] POCT-GLUCOSE [id number] 00:58:00 Test Item Value Reference Range Comments POC-GLUCOSE METER (BEAKER) 145 mg/dL 70-110 TESTED AT [address] (test swby=4163) [facility] [address] POCT-GLUCOSE [id number] 18:36:00 Test Item Value Reference Range Comments POC-GLUCOSE METER (BEAKER) 127 mg/dL 70-110 TESTED AT [facility] [address] [facility] (test xtku=6330) [facility] [address] PLATELET AGGREGATION: FUNCTION [id number] 09:33:00 Test Item Value Reference Range Comments WEAK ADP RESULT(BEAKER) (test 53 % 60-91 yhxw=0664) PLATELET FUNCTION SCREEN 50-59% indicates mild platelet INTERP (BEAKER) (test dysfunction zzhm=9566) [id number] Teja Ferreira M.D. (electonic (BEAKER) (test xtpi=4581) signature) PLATELET COUNT AGG (BEAKER) 120 K/CU MM 150-430 (test kkkj=3012) [id number] 04:59:00 Test Item Value Reference Range Comments MAGNESIUM (BEAKER) (test 2.1 mg/dL 1.6-2.6 Specimen slightly hemolyzed nebo=919) Once on admission and Daily AM afterwardsOnce on admission and Daily AM afterwardsOnce on admission and Daily AM [id number] 04:59:00 Test Item Value Reference Range Comments PHOSPHORUS (BEAKER) (test 2.7 mg/dL 2.3-4.7 Specimen slightly hemolyzed htid=068) Once on admission and Daily AM afterwardsOnce on admission and Daily AM afterwardsOnce on admission and Daily AM afterwardsBASIC METABOLIC [id number] 04:59:00 Test Item Value Reference Range Comments SODIUM (BEAKER) (test 140 meq/L 136-145 ztei=692) POTASSIUM (BEAKER) (test 4.5 meq/L 3.5-5.1 Specimen slightly hqgx=304) hemolyzed CHLORIDE (BEAKER) (test 108 meq/L 98-107 jsxk=833) CO2 (BEAKER) (test 22 meq/L 22-29 dqyf=961) BLOOD UREA NITROGEN 17 mg/dL 7-21 (BEAKER) (test qlnk=694) CREATININE (BEAKER) (test 0.93 mg/dL 0.57-1.25 Specimen slightly xpsj=325) hemolyzed GLUCOSE RANDOM (BEAKER) 82 mg/dL 70-105 (test skjy=141) CALCIUM (BEAKER) (test 8.2 mg/dL 8.4-10.2 eaxc=269) EGFR (BEAKER) (test 81 mL/min/1.73 sq m ESTIMATED GFR IS NOT wviy=4720) ACCURATE CREATININE CLEARANCE IN PREDICTING GLOMERULAR FILTRATION RATE. ESTIMATED GFR IS NOT APPLICABLE FOR DIALYSIS PATIENTS. Once on admission and Daily AM afterwardsOnce on admission and Daily AM afterwardsOnce on admission and Daily AM afterwardsHEPATIC FUNCTION [id number] 23:24:00 Test Item Value Reference Range Comments TOTAL PROTEIN (BEAKER) (test 5.4 gm/dL 6.0-8.3 Specimen slightly hemolyzed asrw=809) ALBUMIN (BEAKER) (test 3.0 g/dL 3.5-5.0 Specimen slightly hemolyzed aiif=5798) BILIRUBIN TOTAL (BEAKER) (test 0.4 mg/dL 0.2-1.2 Specimen slightly hemolyzed ycnj=419) BILIRUBIN DIRECT (BEAKER) (test 0.2 mg/dL 0.1-0.5 Specimen slightly hemolyzed yzyn=647) ALKALINE PHOSPHATASE (BEAKER) 41 U/L 40-150 (test gwlq=011) AST (SGOT) (BEAKER) (test 15 U/L 5-34 Specimen slightly hemolyzed kliq=809) ALT (SGPT) (BEAKER) (test 10 U/L 6-55 Specimen slightly hemolyzed yjww=025) [id number] 22:52:00 Test Item Value Reference Range Comments PROTIME (BEAKER) (test rrrv=633) 14.3 seconds 11.7-14.7 INR (BEAKER) (test wnvf=479) 1.1 <=5.9 PARTIAL THROMBOPLASTIN TIME (BEAKER) (test 32.5 seconds 22.5-36.0 rbah=007) RECOMMENDED COUMADIN/WARFARIN INR THERAPY RANGESSTANDARD DOSE: 2.0 - 3.0 Includes: PROPHYLAXIS forvenous thrombosis, systemic embolization; TREATMENT for venous thrombosis and/or pulmonary embolus.HIGH RISK: Target INR is 2.5-3.5 for patients with mechanical heart valves.VALPROIC ACID LEVEL, [id number] 20:34:00 Test Item Value Reference Range Comments VALPROIC ACID TOTAL (BEAKER) (test rimj=922) 19 ug/mL 50-100 Therapeutic range for some clinical conditions may be >100 ug/mLCREATINE KINASE (CK), TOTAL AND [id number] 10:02:00 Test Item Value Reference Range Comments CREATINE KINASE TOTAL (BEAKER) (test lkkj=561) 106 U/L 29-200 CREATINE KINASE-MB (BEAKER) (test ulrc=474) 1.4 ng/mL 0.0-6.6 CREATINE KINASE-MB INDEX (BEAKER) (test jzeo=764) 1.3 % Effective 07/06/2014: CK-MB Reference Range ChangeNew: 0.0-6.6 Previous: 0.0- 4.9CK-MB Reference Range:<6.7 Normal6.7-10.0 Borderline>10.0 AbnormalTROPONIN [id number] 10:00:00 Test Item Value Reference Range Comments TROPONIN I (BEAKER) (test ajde=785) < ng/mL 0.00-0.03 Effective 07/06/2014: Reference Range [...] and persistent tachyarrhythmia.CREATINE KINASE (CK), TOTAL AND [id number] 00:05:00 Test Item Value Reference Range Comments CREATINE KINASE TOTAL (BEAKER) (test okxt=802) 26 U/L 29-200 CREATINE KINASE-MB (BEAKER) (test rveq=957) 0.5 ng/mL 0.0-6.6 CREATINE KINASE-MB INDEX (BEAKER) (test lczs=691) 1.9 % Effective 07/06/2014: CK-MB Reference Range ChangeNew: 0.0-6.6 Previous: 0.0- 4.9CK-MB Reference Range:<6.7 Normal6.7-10.0 Borderline>10.0 AbnormalTROPONIN [id number] 00:05:00 Test Item Value Reference Range Comments TROPONIN I (BEAKER) (test htcv=789) 0.01 ng/mL 0.00-0.03 Effective 07/06/2014: Reference Range [...] and persistent tachyarrhythmia.CREATINE KINASE (CK), TOTAL AND [id number] 18:06:00 Test Item Value Reference Range Comments CREATINE KINASE TOTAL (JOSEAKER) (test vccw=894) 38 U/L 29-200 CREATINE KINASE-MB (BEAKER) (test ojhg=951) 0.6 ng/mL 0.0-6.6 CREATINE KINASE-MB INDEX (BEAKER) (test rlcl=441) 1.6 % Effective 07/06/2014: CK-MB Reference Range ChangeNew: 0.0-6.6 Previous: 0.0- 4.9CK-MB Reference Range:<6.7 Normal6.7-10.0 Borderline>10.0 AbnormalTROPONIN [id number] 18:06:00 Test Item Value Reference Range Comments TROPONIN I (BEAKER) (test qiph=155) < ng/mL 0.00-0.03 Effective 07/06/2014: Reference Range [...] acute neurological disease, and persistent tachyarrhythmia.COMPREHENSIVE METABOLIC [id number] 18:03:00 Test Item Value Reference Range Comments TOTAL PROTEIN (BEAKER) 7.3 gm/dL 6.0-8.3 Specimen slightly (test rchq=936) hemolyzed ALBUMIN (BEAKER) (test 4.0 g/dL 3.5-5.0 Specimen slightly kkod=2330) hemolyzed ALKALINE PHOSPHATASE 68 U/L 40-150 (BEAKER) (test okqj=957) BILIRUBIN TOTAL (BEAKER) 0.6 mg/dL 0.2-1.2 Specimen slightly (test qesb=954) hemolyzed SODIUM (BEAKER) (test 137 meq/L 136-145 mqws=262) POTASSIUM (BEAKER) (test 4.4 meq/L 3.5-5.1 Specimen slightly dmiu=738) hemolyzed CHLORIDE (BEAKER) (test 103 meq/L 98-107 johg=737) CO2 (BEAKER) (test 22 meq/L 22-29 kvny=993) BLOOD UREA NITROGEN 16 mg/dL 7-21 (BEAKER) (test fwfh=898) CREATININE (BEAKER) (test 1.01 mg/dL 0.57-1.25 Specimen slightly bumi=685) hemolyzed GLUCOSE RANDOM (BEAKER) 114 mg/dL 70-105 (test axbd=146) CALCIUM (BEAKER) (test 9.3 mg/dL 8.4-10.2 xjeg=401) AST (SGOT) (BEAKER) (test 20 U/L 5-34 Specimen slightly betw=319) hemolyzed ALT (SGPT) (BEAKER) (test 17 U/L 6-55 Specimen slightly aspm=078) hemolyzed EGFR (BEAKER) (test 73 mL/min/1.73 sq m ESTIMATED GFR IS NOT poya=9700) ACCURATE CREATININE CLEARANCE IN PREDICTING GLOMERULAR FILTRATION RATE. ESTIMATED GFR IS NOT APPLICABLE FOR DIALYSIS PATIENTS. CBC W/PLT COUNT & AUTO [id number] 17:43:00 Test Item Value Reference Range Comments WHITE BLOOD CELL COUNT (BEAKER) (test jxba=763) 5.7 K/ L 4.0-10.0 RED BLOOD CELL COUNT (BEAKER) (test envm=189) 4.59 M/ L 4.20-5.80 HEMOGLOBIN (BEAKER) (test qqib=609) 14.4 GM/DL 13.0-16.8 HEMATOCRIT (BEAKER) (test hkqy=377) 41.7 % 40.0-50.0 MEAN CORPUSCULAR VOLUME (BEAKER) (test mkyn=673) 90.8 fL 82.0-98.0 MEAN CORPUSCULAR HEMOGLOBIN (BEAKER) (test 31.3 pg 27.0-33.0 qfbj=748) MEAN CORPUSCULAR HEMOGLOBIN CONC (BEAKER) (test 34.5 GM/DL 32.0-36.0 yzto=542) RED CELL DISTRIBUTION WIDTH (BEAKER) (test 12.0 % 10.3-14.2 ftca=339) PLATELET COUNT (BEAKER) (test xozp=600) 164 K/CU MM 150-430 MEAN PLATELET VOLUME (BEAKER) (test khkn=168) 7.2 fL 6.5-10.5 NUCLEATED RED BLOOD CELLS (BEAKER) (test 0 /100 WBC 0-0 qxsg=952) NEUTROPHILS RELATIVE PERCENT (BEAKER) (test 77 % ohnu=822) LYMPHOCYTES RELATIVE PERCENT (BEAKER) (test 12 % gswe=019) MONOCYTES RELATIVE PERCENT (BEAKER) (test 9 % xqxm=774) EOSINOPHILS RELATIVE PERCENT (BEAKER) (test 2 % rita=569) BASOPHILS RELATIVE PERCENT (BEAKER) (test 1 % myjj=718) NEUTROPHILS ABSOLUTE COUNT (BEAKER) (test 4.40 K/ L 1.80-8.00 hdzf=065) LYMPHOCYTES ABSOLUTE COUNT (BEAKER) (test 0.68 K/ L 1.48-4.50 zivk=060) MONOCYTES ABSOLUTE COUNT (BEAKER) (test 0.50 K/ L 0.00-1.30 dygb=987) EOSINOPHILS ABSOLUTE COUNT (BEAKER) (test 0.12 K/ L 0.00-0.50 lhdp=479) BASOPHILS ABSOLUTE COUNT (BEAKER) (test 0.03 K/ L 0.00-0.20 cckw=439) [id number] 05:44:00 Test Item Value Reference Range Comments MAGNESIUM (BEAKER) (test odwa=171) 2.0 mg/dL 1.6-2.6 [id number] 11:00:00 Test Item Value Reference Range Comments RPR SCREEN (BEAKER) (test dshm=044) Nonreactive Nonreactive HEMOGLOBIN [id number] 10:35:00 Test Item Value Reference Range Comments HEMOGLOBIN A1C (BEAKER) (test dwni=584) 5.1 % 4.3-6.1 CBC W/PLT COUNT & AUTO [id number] 07:10:00 Test Item Value Reference Range Comments WHITE BLOOD CELL COUNT (BEAKER) (test earb=816) 4.5 K/ L 4.0-10.0 RED BLOOD CELL COUNT (BEAKER) (test boqh=357) 4.53 M/ L 4.20-5.80 HEMOGLOBIN (BEAKER) (test yces=984) 13.6 GM/DL 13.0-16.8 HEMATOCRIT (BEAKER) (test hero=896) 41.1 % 40.0-50.0 MEAN CORPUSCULAR VOLUME (BEAKER) (test xuqm=443) 90.7 fL 82.0-98.0 MEAN CORPUSCULAR HEMOGLOBIN (BEAKER) (test 30.1 pg 27.0-33.0 halw=408) MEAN CORPUSCULAR HEMOGLOBIN CONC (BEAKER) (test 33.1 GM/DL 32.0-36.0 cuzw=611) RED CELL DISTRIBUTION WIDTH (BEAKER) (test 12.1 % 10.3-14.2 ipfj=193) PLATELET COUNT (BEAKER) (test ghym=563) 169 K/CU MM 150-430 MEAN PLATELET VOLUME (BEAKER) (test jdzx=721) 7.1 fL 6.5-10.5 NUCLEATED RED BLOOD CELLS (BEAKER) (test 0 /100 WBC 0-0 dtgn=751) NEUTROPHILS RELATIVE PERCENT (BEAKER) (test 72 % wmsw=963) LYMPHOCYTES RELATIVE PERCENT (BEAKER) (test 17 % ymap=306) MONOCYTES RELATIVE PERCENT (BEAKER) (test 8 % bvos=136) EOSINOPHILS RELATIVE PERCENT (BEAKER) (test 3 % jzsl=176) BASOPHILS RELATIVE PERCENT (BEAKER) (test 1 % nuiu=387) NEUTROPHILS ABSOLUTE COUNT (BEAKER) (test 3.20 K/ L 1.80-8.00 djea=085) LYMPHOCYTES ABSOLUTE COUNT (BEAKER) (test 0.76 K/ L 1.48-4.50 mlvs=921) MONOCYTES ABSOLUTE COUNT (BEAKER) (test 0.35 K/ L 0.00-1.30 ufup=796) EOSINOPHILS ABSOLUTE COUNT (BEAKER) (test 0.12 K/ L 0.00-0.50 zzog=056) BASOPHILS ABSOLUTE COUNT (BEAKER) (test 0.03 K/ L 0.00-0.20 rakr=658) 0.00VITAMIN [id number] 06:57:00 Test Item Value Reference Range Comments VITAMIN B12 (BEAKER) (test nfwr=568) 584 pg/mL 213-816 TSH/FREE T4 IF [id number] 06:57:00 Test Item Value Reference Range Comments THYROID STIMULATING HORMONE (BEAKER) (test 0.98 uIU/mL 0.35-4.94 utve=491) [id number] 06:15:00 Test Item Value Reference Range Comments MAGNESIUM (BEAKER) (test xrpx=391) 2.1 mg/dL 1.6-2.6 COMPREHENSIVE METABOLIC [id number] 06:15:00 Test Item Value Reference Range Comments TOTAL PROTEIN (BEAKER) 6.8 gm/dL 6.0-8.3 (test ljvn=829) ALBUMIN (BEAKER) (test 3.9 g/dL 3.5-5.0 akmh=6877) ALKALINE PHOSPHATASE 64 U/L 40-150 (BEAKER) (test hqyx=529) BILIRUBIN TOTAL (BEAKER) 0.6 mg/dL 0.2-1.2 (test skbs=431) SODIUM (BEAKER) (test 136 meq/L 136-145 rgzs=169) POTASSIUM (BEAKER) (test 4.0 meq/L 3.5-5.1 gssl=795) CHLORIDE (BEAKER) (test 104 meq/L 98-107 nsgu=058) CO2 (BEAKER) (test 21 meq/L 22-29 uehn=316) BLOOD UREA NITROGEN 14 mg/dL 7-21 (BEAKER) (test zryh=798) CREATININE (BEAKER) (test 0.98 mg/dL 0.57-1.25 rffx=167) GLUCOSE RANDOM (BEAKER) 101 mg/dL 70-105 (test iijr=310) CALCIUM (BEAKER) (test 8.9 mg/dL 8.4-10.2 dmou=953) AST (SGOT) (BEAKER) (test 15 U/L 5-34 zlqa=357) ALT (SGPT) (BEAKER) (test 15 U/L 6-55 mduj=900) EGFR (BEAKER) (test 76 mL/min/1.73 sq m ESTIMATED GFR IS NOT yvud=8962) ACCURATE CREATININE CLEARANCE IN PREDICTING GLOMERULAR FILTRATION RATE. ESTIMATED GFR IS NOT APPLICABLE FOR DIALYSIS PATIENTS. BASIC METABOLIC [id number] 06:15:00 Test Item Value Reference Range Comments SODIUM (BEAKER) (test 136 meq/L 136-145 pqfu=574) POTASSIUM (BEAKER) (test 4.0 meq/L 3.5-5.1 gqbg=735) CHLORIDE (BEAKER) (test 104 meq/L 98-107 cdlm=013) CO2 (BEAKER) (test 21 meq/L 22-29 zcnf=969) BLOOD UREA NITROGEN 14 mg/dL 7-21 (BEAKER) (test hkrd=459) CREATININE (BEAKER) (test 0.98 mg/dL 0.57-1.25 jvxz=517) GLUCOSE RANDOM (BEAKER) 101 mg/dL 70-105 (test xmwr=134) CALCIUM (BEAKER) (test 8.9 mg/dL 8.4-10.2 iijm=121) EGFR (BEAKER) (test 76 mL/min/1.73 sq m ESTIMATED GFR IS NOT ieds=9357) ACCURATE CREATININE CLEARANCE IN PREDICTING GLOMERULAR FILTRATION RATE. ESTIMATED GFR IS NOT APPLICABLE FOR DIALYSIS PATIENTS. LIPID [id number] 06:15:00 Test Item Value Reference Range Comments TRIGLYCERIDES (BEAKER) (test nymu=191) 114 mg/dL CHOLESTEROL (BEAKER) (test vjaj=134) 161 mg/dL HDL CHOLESTEROL (BEAKER) (test mayh=350) 36 mg/dL LDL CHOLESTEROL CALCULATED (BEAKER) (test 102 mg/dL ygpr=950) Triglyceride Reference Range: Low Risk <150 Borderline 150- 199 High Risk 200-499 Very High Risk >=500Cholesterol Reference Range: Low Risk <200 Borderline 200-239 High Risk > 240HDL Cholesterol Reference Range: Low Risk >=60 High Risk <40LDL Cholesterol Reference Range: Optimal <100 Near Optimal 100-129 Borderline 130-159 High 160-189 Very High >=190BASIC METABOLIC [id number] 05:07:00 Test Item Value Reference Range Comments SODIUM (BEAKER) (test 137 meq/L 136-145 jtjw=328) POTASSIUM (BEAKER) (test 4.2 meq/L 3.5-5.1 lxfo=673) CHLORIDE (BEAKER) (test 105 meq/L 98-107 nsak=968) CO2 (BEAKER) (test 22 meq/L 22-29 clay=993) BLOOD UREA NITROGEN 13 mg/dL 7-21 (BEAKER) (test haow=476) CREATININE (BEAKER) (test 0.93 mg/dL 0.57-1.25 uiqu=197) GLUCOSE RANDOM (BEAKER) 102 mg/dL 70-105 (test btbm=434) CALCIUM (BEAKER) (test 9.3 mg/dL 8.4-10.2 ujak=491) EGFR (BEAKER) (test 81 mL/min/1.73 sq m ESTIMATED GFR IS NOT vdbj=4777) ACCURATE CREATININE CLEARANCE IN PREDICTING GLOMERULAR FILTRATION RATE. ESTIMATED GFR IS NOT APPLICABLE FOR DIALYSIS PATIENTS. CBC W/PLT COUNT & AUTO [id number] 05:00:00 Test Item Value Reference Range Comments WHITE BLOOD CELL COUNT (BEAKER) (test njhv=520) 5.3 K/ L 4.0-10.0 RED BLOOD CELL COUNT (BEAKER) (test vnqt=098) 4.52 M/ L 4.20-5.80 HEMOGLOBIN (BEAKER) (test qxzq=182) 13.6 GM/DL 13.0-16.8 HEMATOCRIT (BEAKER) (test zxrx=983) 40.4 % 40.0-50.0 MEAN CORPUSCULAR VOLUME (BEAKER) (test ztvt=356) 89.4 fL 82.0-98.0 MEAN CORPUSCULAR HEMOGLOBIN (BEAKER) (test 30.1 pg 27.0-33.0 qgnh=422) MEAN CORPUSCULAR HEMOGLOBIN CONC (BEAKER) (test 33.7 GM/DL 32.0-36.0 lmjr=342) RED CELL DISTRIBUTION WIDTH (BEAKER) (test 12.1 % 10.3-14.2 nbjz=606) PLATELET COUNT (BEAKER) (test lxrb=266) 157 K/CU MM 150-430 MEAN PLATELET VOLUME (BEAKER) (test ycfd=313) 7.0 fL 6.5-10.5 NUCLEATED RED BLOOD CELLS (BEAKER) (test 0 /100 WBC 0-0 vzcs=598) NEUTROPHILS RELATIVE PERCENT (BEAKER) (test 78 % nsgf=194) LYMPHOCYTES RELATIVE PERCENT (BEAKER) (test 11 % xrod=967) MONOCYTES RELATIVE PERCENT (BEAKER) (test 7 % xhjd=848) EOSINOPHILS RELATIVE PERCENT (BEAKER) (test 3 % muqj=831) BASOPHILS RELATIVE PERCENT (BEAKER) (test 0 % quks=544) NEUTROPHILS ABSOLUTE COUNT (BEAKER) (test 4.11 K/ L 1.80-8.00 lpla=576) LYMPHOCYTES ABSOLUTE COUNT (BEAKER) (test 0.56 K/ L 1.48-4.50 caat=615) MONOCYTES ABSOLUTE COUNT (BEAKER) (test 0.39 K/ L 0.00-1.30 wcwd=266) EOSINOPHILS ABSOLUTE COUNT (BEAKER) (test 0.16 K/ L 0.00-0.50 ufzk=034) BASOPHILS ABSOLUTE COUNT (BEAKER) (test 0.02 K/ L 0.00-0.20 ibqy=402) 0.00BASIC METABOLIC [id number] 19:13:00 Test Item Value Reference Range Comments SODIUM (BEAKER) (test 136 meq/L 136-145 xixi=087) POTASSIUM (BEAKER) (test 3.7 meq/L 3.5-5.1 vann=254) CHLORIDE (BEAKER) (test 105 meq/L 98-107 gfyx=650) CO2 (BEAKER) (test 25 meq/L 22-29 udxq=810) BLOOD UREA NITROGEN 14 mg/dL 7-21 (BEAKER) (test drcs=054) CREATININE (BEAKER) (test 0.93 mg/dL 0.57-1.25 ixtk=654) GLUCOSE RANDOM (BEAKER) 147 mg/dL 70-105 (test mrpy=258) CALCIUM (BEAKER) (test 9.2 mg/dL 8.4-10.2 zldw=801) EGFR (BEAKER) (test 81 mL/min/1.73 sq m ESTIMATED GFR IS NOT rsft=3660) ACCURATE CREATININE CLEARANCE IN PREDICTING GLOMERULAR FILTRATION RATE. ESTIMATED GFR IS NOT APPLICABLE FOR DIALYSIS PATIENTS. CBC W/PLT COUNT & AUTO [id number] 19:08:00 Test Item Value Reference Range Comments WHITE BLOOD CELL COUNT (BEAKER) (test bkml=677) 5.3 K/ L 4.0-10.0 RED BLOOD CELL COUNT (BEAKER) (test eghz=563) 4.25 M/ L 4.20-5.80 HEMOGLOBIN (BEAKER) (test yzjw=509) 13.4 GM/DL 13.0-16.8 HEMATOCRIT (BEAKER) (test cwnw=586) 37.7 % 40.0-50.0 MEAN CORPUSCULAR VOLUME (BEAKER) (test tthu=300) 88.7 fL 82.0-98.0 MEAN CORPUSCULAR HEMOGLOBIN (BEAKER) (test 31.5 pg 27.0-33.0 rzgv=312) MEAN CORPUSCULAR HEMOGLOBIN CONC (BEAKER) (test 35.5 GM/DL 32.0-36.0 lwch=393) RED CELL DISTRIBUTION WIDTH (BEAKER) (test 11.9 % 10.3-14.2 ssoe=153) PLATELET COUNT (BEAKER) (test uvnl=995) 142 K/CU MM 150-430 MEAN PLATELET VOLUME (BEAKER) (test lfml=237) 6.7 fL 6.5-10.5 NUCLEATED RED BLOOD CELLS (BEAKER) (test 0 /100 WBC 0-0 yymk=544) NEUTROPHILS RELATIVE PERCENT (BEAKER) (test 81 % yqka=079) LYMPHOCYTES RELATIVE PERCENT (BEAKER) (test 11 % ayfi=209) MONOCYTES RELATIVE PERCENT (BEAKER) (test 6 % ukto=127) EOSINOPHILS RELATIVE PERCENT (BEAKER) (test 2 % aixp=118) BASOPHILS RELATIVE PERCENT (BEAKER) (test 0 % jwdl=533) NEUTROPHILS ABSOLUTE COUNT (BEAKER) (test 4.27 K/ L 1.80-8.00 xqmx=471) LYMPHOCYTES ABSOLUTE COUNT (BEAKER) (test 0.57 K/ L 1.48-4.50 sbyh=571) MONOCYTES ABSOLUTE COUNT (BEAKER) (test 0.33 K/ L 0.00-1.30 liam=897) EOSINOPHILS ABSOLUTE COUNT (BEAKER) (test 0.11 K/ L 0.00-0.50 pthc=327) BASOPHILS ABSOLUTE COUNT (BEAKER) (test 0.02 K/ L 0.00-0.20 uofq=716) 0.00POCT-GLUCOSE [id number] 14:07:00 Test Item Value Reference Range Comments POC-GLUCOSE METER (BEAKER) 99 mg/dL 70-110 TESTED AT [facility] [address] [facility] (test rjds=6894) [facility] [address] POCT-GLUCOSE [id number] 13:05:00 Test Item Value Reference Range Comments POC-GLUCOSE METER (BEAKER) 115 mg/dL 70-110 TESTED AT [address] (test guis=2716) [facility] [address] POCT-GLUCOSE [id number] 07:34:00 Test Item Value Reference Range Comments POC-GLUCOSE METER (BEAKER) 145 mg/dL 70-110 TESTED AT [place] [id number] [facility] (test uxwi=8732) [facility] [address] [id number] 06:56:00 Test Item Value Reference Range Comments PHOSPHORUS (BEAKER) (test zakl=411) 3.3 mg/dL 2.3-4.7 [id number] 06:56:00 Test Item Value Reference Range Comments MAGNESIUM (BEAKER) (test duby=330) 1.9 mg/dL 1.6-2.6 BASIC METABOLIC [id number] 06:56:00 Test Item Value Reference Range Comments SODIUM (BEAKER) (test 137 meq/L 136-145 eshl=130) POTASSIUM (BEAKER) (test 4.2 meq/L 3.5-5.1 qgtg=579) CHLORIDE (BEAKER) (test 105 meq/L 98-107 ttqw=706) CO2 (BEAKER) (test 22 meq/L 22-29 sqbq=412) BLOOD UREA NITROGEN 15 mg/dL 7-21 (BEAKER) (test eqsu=033) CREATININE (BEAKER) (test 0.90 mg/dL 0.57-1.25 jkhp=914) GLUCOSE RANDOM (BEAKER) 100 mg/dL 70-105 (test zsjg=894) CALCIUM (BEAKER) (test 8.9 mg/dL 8.4-10.2 osed=132) EGFR (BEAKER) (test 84 mL/min/1.73 sq m ESTIMATED GFR IS NOT omqp=7801) ACCURATE CREATININE CLEARANCE IN PREDICTING GLOMERULAR FILTRATION RATE. ESTIMATED GFR IS NOT APPLICABLE FOR DIALYSIS PATIENTS. CBC W/PLT COUNT & AUTO [id number] 06:34:00 Test Item Value Reference Range Comments WHITE BLOOD CELL COUNT (BEAKER) (test lqgf=740) 4.2 K/ L 4.0-10.0 RED BLOOD CELL COUNT (BEAKER) (test fgya=150) 4.24 M/ L 4.20-5.80 HEMOGLOBIN (BEAKER) (test luhe=646) 13.1 GM/DL 13.0-16.8 HEMATOCRIT (BEAKER) (test lkgu=274) 37.7 % 40.0-50.0 MEAN CORPUSCULAR VOLUME (BEAKER) (test hwzc=112) 88.7 fL 82.0-98.0 MEAN CORPUSCULAR HEMOGLOBIN (BEAKER) (test 30.9 pg 27.0-33.0 lzvs=292) MEAN CORPUSCULAR HEMOGLOBIN CONC (BEAKER) (test 34.8 GM/DL 32.0-36.0 atms=491) RED CELL DISTRIBUTION WIDTH (BEAKER) (test 13.2 % 10.3-14.2 akaq=261) PLATELET COUNT (BEAKER) (test gcad=346) 130 K/CU MM 150-430 MEAN PLATELET VOLUME (BEAKER) (test uvhb=860) 7.1 fL 6.5-10.5 NUCLEATED RED BLOOD CELLS (BEAKER) (test 0 /100 WBC 0-0 jqcu=195) NEUTROPHILS RELATIVE PERCENT (BEAKER) (test 73 % dfut=692) LYMPHOCYTES RELATIVE PERCENT (BEAKER) (test 16 % upxq=251) MONOCYTES RELATIVE PERCENT (BEAKER) (test 7 % qvyb=129) EOSINOPHILS RELATIVE PERCENT (BEAKER) (test 5 % uxxm=416) BASOPHILS RELATIVE PERCENT (BEAKER) (test 0 % lbpc=437) NEUTROPHILS ABSOLUTE COUNT (BEAKER) (test 3.06 K/ L 1.80-8.00 htcg=284) LYMPHOCYTES ABSOLUTE COUNT (BEAKER) (test 0.67 K/ L 1.48-4.50 fequ=089) MONOCYTES ABSOLUTE COUNT (BEAKER) (test 0.28 K/ L 0.00-1.30 udwi=962) EOSINOPHILS ABSOLUTE COUNT (BEAKER) (test 0.21 K/ L 0.00-0.50 htwt=608) BASOPHILS ABSOLUTE COUNT (BEAKER) (test 0.00 K/ L 0.00-0.20 ajhq=120) [id number] 06:29:00 Test Item Value Reference Range Comments PARTIAL THROMBOPLASTIN TIME (BEAKER) (test 30.9 seconds 22.5-36.0 prca=005) PROTHROMBIN [id number] 06:28:00 Test Item Value Reference Range Comments PROTIME (BEAKER) (test csta=372) 14.0 seconds 11.7-14.7 INR (BEAKER) (test pqat=606) 1.1 <=5.9 RECOMMENDED COUMADIN/WARFARIN INR THERAPY RANGESSTANDARD DOSE: 2.0 - 3.0 Includes: PROPHYLAXIS forvenous thrombosis, systemic embolization; TREATMENT for venous thrombosis and/or pulmonary embolus.HIGH RISK: Target INR is 2.5-3.5 for patients with mechanical heart valves.POCT-GLUCOSE [id number] 05:42:00 Test Item Value Reference Range Comments POC-GLUCOSE METER (BEAKER) 90 mg/dL 70-110 TESTED AT [address] (test cwqt=4134) [place] [address] POCT-GLUCOSE [id number] 23:43:00 Test Item Value Reference Range Comments POC-GLUCOSE METER (BEAKER) 118 mg/dL 70-110 TESTED AT [address] (test awdg=1808) [place] [address] POCT-GLUCOSE [id number] 17:19:00 Test Item Value Reference Range Comments POC-GLUCOSE METER (BEAKER) 127 mg/dL 70-110 TESTED AT [address] (test fnmi=9751) [place] [id number] POCT-GLUCOSE [id number] 12:30:00 Test Item Value Reference Range Comments POC-GLUCOSE METER (BEAKER) 103 mg/dL 70-110 TESTED AT [address] (test doso=9967) [place] [id number] POCT-GLUCOSE [id number] 09:52:00 Test Item Value Reference Range Comments POC-GLUCOSE METER (BEAKER) 137 mg/dL 70-110 TESTED AT [address] (test huhx=6236) [place] [address] CBC W/PLT COUNT & AUTO [id number] 06:43:00 Test Item Value Reference Range Comments WHITE BLOOD CELL COUNT (BEAKER) (test fjsx=102) 4.9 K/ L 4.0-10.0 RED BLOOD CELL COUNT (BEAKER) (test adzb=249) 4.36 M/ L 4.20-5.80 HEMOGLOBIN (BEAKER) (test tntx=948) 13.2 GM/DL 13.0-16.8 HEMATOCRIT (BEAKER) (test bfoa=486) 39.1 % 40.0-50.0 MEAN CORPUSCULAR VOLUME (BEAKER) (test tuwz=291) 89.8 fL 82.0-98.0 MEAN CORPUSCULAR HEMOGLOBIN (BEAKER) (test 30.2 pg 27.0-33.0 wczu=724) MEAN CORPUSCULAR HEMOGLOBIN CONC (BEAKER) (test 33.7 GM/DL 32.0-36.0 ukes=202) RED CELL DISTRIBUTION WIDTH (BEAKER) (test 12.0 % 10.3-14.2 qflz=694) PLATELET COUNT (BEAKER) (test lplx=883) 143 K/CU MM 150-430 MEAN PLATELET VOLUME (BEAKER) (test kyzj=230) 6.9 fL 6.5-10.5 NUCLEATED RED BLOOD CELLS (BEAKER) (test 0 /100 WBC 0-0 jhpo=111) NEUTROPHILS RELATIVE PERCENT (BEAKER) (test 74 % gnfq=361) LYMPHOCYTES RELATIVE PERCENT (BEAKER) (test 16 % cygq=519) MONOCYTES RELATIVE PERCENT (BEAKER) (test 6 % nikl=055) EOSINOPHILS RELATIVE PERCENT (BEAKER) (test 4 % iaqd=305) BASOPHILS RELATIVE PERCENT (BEAKER) (test 0 % soer=563) NEUTROPHILS ABSOLUTE COUNT (BEAKER) (test 3.59 K/ L 1.80-8.00 hxgp=769) LYMPHOCYTES ABSOLUTE COUNT (BEAKER) (test 0.78 K/ L 1.48-4.50 cyxm=379) MONOCYTES ABSOLUTE COUNT (BEAKER) (test 0.30 K/ L 0.00-1.30 gegl=125) EOSINOPHILS ABSOLUTE COUNT (BEAKER) (test 0.21 K/ L 0.00-0.50 lywk=329) BASOPHILS ABSOLUTE COUNT (BEAKER) (test 0.01 K/ L 0.00-0.20 rdvt=400) [id number] 06:39:00 Test Item Value Reference Range Comments PHOSPHORUS (BEAKER) (test dryj=949) 3.2 mg/dL 2.3-4.7 [id number] 06:39:00 Test Item Value Reference Range Comments MAGNESIUM (BEAKER) (test qztp=693) 1.9 mg/dL 1.6-2.6 BASIC METABOLIC [id number] 06:39:00 Test Item Value Reference Range Comments SODIUM (BEAKER) (test 137 meq/L 136-145 jhih=784) POTASSIUM (BEAKER) (test 3.9 meq/L 3.5-5.1 grfs=096) CHLORIDE (BEAKER) (test 106 meq/L 98-107 rjxg=280) CO2 (BEAKER) (test 23 meq/L 22-29 kfzh=967) BLOOD UREA NITROGEN 14 mg/dL 7-21 (BEAKER) (test ofig=860) CREATININE (BEAKER) (test 0.89 mg/dL 0.57-1.25 hlnj=049) GLUCOSE RANDOM (BEAKER) 99 mg/dL 70-105 (test pkfh=271) CALCIUM (BEAKER) (test 9.0 mg/dL 8.4-10.2 jkvh=378) EGFR (BEAKER) (test 85 mL/min/1.73 sq m ESTIMATED GFR IS NOT bgej=5781) ACCURATE CREATININE CLEARANCE IN PREDICTING GLOMERULAR FILTRATION RATE. ESTIMATED GFR IS NOT APPLICABLE FOR DIALYSIS PATIENTS. PROTHROMBIN TIME/[id number] 06:31:00 Test Item Value Reference Range Comments PROTIME (BEAKER) (test lbdw=048) 13.7 seconds 11.7-14.7 INR (BEAKER) (test ydum=118) 1.1 <=5.9 RECOMMENDED COUMADIN/WARFARIN INR THERAPY RANGESSTANDARD DOSE: 2.0 - 3.0 Includes: PROPHYLAXIS forvenous thrombosis, systemic embolization; TREATMENT for venous thrombosis and/or pulmonary embolus.HIGH RISK: Target INR is 2.5-3.5 for patients with mechanical heart valves.[id number] 06:31:00 Test Item Value Reference Range Comments PARTIAL THROMBOPLASTIN TIME (BEAKER) (test 30.3 seconds 22.5-36.0 jsyu=795) POCT-GLUCOSE [id number] 21:46:00 Test Item Value Reference Range Comments POC-GLUCOSE METER (BEAKER) 97 mg/dL 70-110 TESTED AT [address] (test cpse=3908) [facility] [address] POCT-GLUCOSE [id number] 12:19:00 Test Item Value Reference Range Comments POC-GLUCOSE METER (BEAKER) 118 mg/dL 70-110 TESTED AT [address] (test vmez=4370) [facility] [address] POCT-GLUCOSE [id number] 08:50:00 Test Item Value Reference Range Comments POC-GLUCOSE METER (BEAKER) 135 mg/dL 70-110 TESTED AT [address] (test evml=6966) [facility] [address] POCT-GLUCOSE [id number] 07:45:00 Test Item Value Reference Range Comments POC-GLUCOSE METER (BEAKER) 94 mg/dL 70-110 TESTED AT [address] (test xvwz=4047) [facility] [address] CBC W/PLT COUNT & AUTO [id number] 05:32:00 Test Item Value Reference Range Comments WHITE BLOOD CELL COUNT (BEAKER) (test kyyj=549) 4.8 K/ L 4.0-10.0 RED BLOOD CELL COUNT (BEAKER) (test sxjj=391) 4.11 M/ L 4.20-5.80 HEMOGLOBIN (BEAKER) (test fzec=618) 12.7 GM/DL 13.0-16.8 HEMATOCRIT (BEAKER) (test ntna=016) 36.8 % 40.0-50.0 MEAN CORPUSCULAR VOLUME (BEAKER) (test yhfp=749) 89.5 fL 82.0-98.0 MEAN CORPUSCULAR HEMOGLOBIN (BEAKER) (test 30.8 pg 27.0-33.0 stfn=637) MEAN CORPUSCULAR HEMOGLOBIN CONC (BEAKER) (test 34.4 GM/DL 32.0-36.0 cjqt=634) RED CELL DISTRIBUTION WIDTH (BEAKER) (test 11.9 % 10.3-14.2 jhbi=231) PLATELET COUNT (BEAKER) (test ktcx=127) 143 K/CU MM 150-430 MEAN PLATELET VOLUME (BEAKER) (test wuqt=463) 7.0 fL 6.5-10.5 NUCLEATED RED BLOOD CELLS (BEAKER) (test 0 /100 WBC 0-0 gxfv=134) NEUTROPHILS RELATIVE PERCENT (BEAKER) (test 74 % cbyj=075) LYMPHOCYTES RELATIVE PERCENT (BEAKER) (test 15 % mhrj=941) MONOCYTES RELATIVE PERCENT (BEAKER) (test 7 % tlvz=723) EOSINOPHILS RELATIVE PERCENT (BEAKER) (test 4 % umlj=548) BASOPHILS RELATIVE PERCENT (BEAKER) (test 0 % adpb=082) NEUTROPHILS ABSOLUTE COUNT (BEAKER) (test 3.53 K/ L 1.80-8.00 jfmx=439) LYMPHOCYTES ABSOLUTE COUNT (BEAKER) (test 0.72 K/ L 1.48-4.50 nrvi=161) MONOCYTES ABSOLUTE COUNT (BEAKER) (test 0.33 K/ L 0.00-1.30 ljpq=848) EOSINOPHILS ABSOLUTE COUNT (BEAKER) (test 0.18 K/ L 0.00-0.50 ditq=818) BASOPHILS ABSOLUTE COUNT (BEAKER) (test 0.01 K/ L 0.00-0.20 nbnt=383) [id number] 05:27:00 Test Item Value Reference Range Comments PHOSPHORUS (BEAKER) (test fwox=836) 3.4 mg/dL 2.3-4.7 [id number] 05:27:00 Test Item Value Reference Range Comments MAGNESIUM (BEAKER) (test cdkt=840) 2.0 mg/dL 1.6-2.6 BASIC METABOLIC [id number] 05:27:00 Test Item Value Reference Range Comments SODIUM (BEAKER) (test 139 meq/L 136-145 desy=519) POTASSIUM (BEAKER) (test 4.1 meq/L 3.5-5.1 bdun=115) CHLORIDE (BEAKER) (test 108 meq/L 98-107 qczj=360) CO2 (BEAKER) (test 23 meq/L 22-29 pxue=119) BLOOD UREA NITROGEN 15 mg/dL 7-21 (BEAKER) (test uvlt=298) CREATININE (BEAKER) (test 0.85 mg/dL 0.57-1.25 qnpq=379) GLUCOSE RANDOM (BEAKER) 105 mg/dL 70-105 (test qegh=682) CALCIUM (BEAKER) (test 8.6 mg/dL 8.4-10.2 pzvc=802) EGFR (BEAKER) (test 89 mL/min/1.73 sq m ESTIMATED GFR IS NOT tkoq=2579) ACCURATE CREATININE CLEARANCE IN PREDICTING GLOMERULAR FILTRATION RATE. ESTIMATED GFR IS NOT APPLICABLE FOR DIALYSIS PATIENTS. [id number] 05:09:00 Test Item Value Reference Range Comments PARTIAL THROMBOPLASTIN TIME (BEAKER) (test 29.4 seconds 22.5-36.0 urgs=561) PROTHROMBIN TIME/[id number] 05:08:00 Test Item Value Reference Range Comments PROTIME (BEAKER) (test wymu=660) 13.6 seconds 11.7-14.7 INR (BEAKER) (test favj=457) 1.0 <=5.9 RECOMMENDED COUMADIN/WARFARIN INR THERAPY RANGESSTANDARD DOSE: 2.0 - 3.0 Includes: PROPHYLAXIS forvenous thrombosis, systemic embolization; TREATMENT for venous thrombosis and/or pulmonary embolus.HIGH RISK: Target INR is 2.5-3.5 for patients with mechanical heart valves.POCT-GLUCOSE [id number] 18:02:00 Test Item Value Reference Range Comments POC-GLUCOSE METER (BEAKER) 120 mg/dL 70-110 TESTED AT [address] (test rugv=8961) [place] [address] POCT-GLUCOSE [id number] 12:36:00 Test Item Value Reference Range Comments POC-GLUCOSE METER (BEAKER) 109 mg/dL 70-110 TESTED AT [address] (test mudu=2401) [place] [address] POCT-GLUCOSE [id number] 07:59:00 Test Item Value Reference Range Comments POC-GLUCOSE METER (BEAKER) 104 mg/dL 70-110 TESTED AT [address] (test rxof=7596) [place] [address] POCT-GLUCOSE [id number] 06:56:00 Test Item Value Reference Range Comments POC-GLUCOSE METER (BEAKER) 102 mg/dL 70-110 TESTED AT [address] (test guku=4281) [place] [address] TROPONIN [id number] 02:03:00 Test Item Value Reference Range Comments TROPONIN I (BEAKER) (test tsoa=098) < ng/mL 0.00-0.03 Effective 07/06/2014: Reference Range [...] renalfailure, acidosis, acute neurological disease, and persistent tachyarrhythmia.[id number] 01:55: 00 Test Item Value Reference Range Comments MAGNESIUM (BEAKER) (test 2.2 mg/dL 1.6-2.6 Specimen slightly hemolyzed tswz=223) [id number] 01:55:00 Test Item Value Reference Range Comments PHOSPHORUS (BEAKER) (test 2.9 mg/dL 2.3-4.7 Specimen slightly hemolyzed kmbv=684) BASIC METABOLIC [id number] 01:55:00 Test Item Value Reference Range Comments SODIUM (BEAKER) (test 141 meq/L 136-145 ylwp=582) POTASSIUM (BEAKER) (test 4.4 meq/L 3.5-5.1 Specimen slightly vbee=558) hemolyzed CHLORIDE (BEAKER) (test 111 meq/L 98-107 zvzn=923) CO2 (BEAKER) (test 23 meq/L 22-29 tmjd=352) BLOOD UREA NITROGEN 15 mg/dL 7-21 (BEAKER) (test nmld=614) CREATININE (BEAKER) (test 1.10 mg/dL 0.57-1.25 Specimen slightly ewlk=934) hemolyzed GLUCOSE RANDOM (BEAKER) 103 mg/dL 70-105 (test vepd=195) CALCIUM (BEAKER) (test 8.2 mg/dL 8.4-10.2 jzic=302) EGFR (BEAKER) (test 66 mL/min/1.73 sq m ESTIMATED GFR IS NOT mxzw=5395) ACCURATE CREATININE CLEARANCE IN PREDICTING GLOMERULAR FILTRATION RATE. ESTIMATED GFR IS NOT APPLICABLE FOR DIALYSIS PATIENTS. [id number] 01:33:00 Test Item Value Reference Range Comments PARTIAL THROMBOPLASTIN TIME (BEAKER) (test 30.2 seconds 22.5-36.0 trnf=677) PROTHROMBIN TIME/[id number] 01:32:00 Test Item Value Reference Range Comments PROTIME (BEAKER) (test cvrp=196) 14.7 seconds 11.7-14.7 INR (BEAKER) (test ijxu=246) 1.2 <=5.9 RECOMMENDED COUMADIN/WARFARIN INR THERAPY RANGESSTANDARD DOSE: 2.0 - 3.0 Includes: PROPHYLAXIS forvenous thrombosis, systemic embolization; TREATMENT for venous thrombosis and/or pulmonary embolus.HIGH RISK: Target INR is 2.5-3.5 for patients with mechanical heart valves.CBC W/PLT COUNT & AUTO [id number] 01:23:00 Test Item Value Reference Range Comments WHITE BLOOD CELL COUNT (BEAKER) (test xdmg=796) 4.8 K/ L 4.0-10.0 RED BLOOD CELL COUNT (BEAKER) (test arrk=744) 4.08 M/ L 4.20-5.80 HEMOGLOBIN (BEAKER) (test nfoo=022) 13.0 GM/DL 13.0-16.8 HEMATOCRIT (BEAKER) (test iqpg=609) 36.7 % 40.0-50.0 MEAN CORPUSCULAR VOLUME (BEAKER) (test txxn=287) 90.0 fL 82.0-98.0 MEAN CORPUSCULAR HEMOGLOBIN (BEAKER) (test 31.8 pg 27.0-33.0 qokd=470) MEAN CORPUSCULAR HEMOGLOBIN CONC (BEAKER) (test 35.3 GM/DL 32.0-36.0 pppq=632) RED CELL DISTRIBUTION WIDTH (BEAKER) (test 12.2 % 10.3-14.2 icrz=870) PLATELET COUNT (BEAKER) (test frwb=694) 151 K/CU MM 150-430 MEAN PLATELET VOLUME (BEAKER) (test tfag=159) 7.3 fL 6.5-10.5 NUCLEATED RED BLOOD CELLS (BEAKER) (test 0 /100 WBC 0-0 dpki=617) NEUTROPHILS RELATIVE PERCENT (BEAKER) (test 76 % icoq=967) LYMPHOCYTES RELATIVE PERCENT (BEAKER) (test 15 % tsdo=427) MONOCYTES RELATIVE PERCENT (BEAKER) (test 6 % zglv=679) EOSINOPHILS RELATIVE PERCENT (BEAKER) (test 3 % lmxl=457) BASOPHILS RELATIVE PERCENT (BEAKER) (test 0 % kfjk=862) NEUTROPHILS ABSOLUTE COUNT (BEAKER) (test 3.65 K/ L 1.80-8.00 wlkz=057) LYMPHOCYTES ABSOLUTE COUNT (BEAKER) (test 0.72 K/ L 1.48-4.50 hzyk=964) MONOCYTES ABSOLUTE COUNT (BEAKER) (test 0.28 K/ L 0.00-1.30 htkl=847) EOSINOPHILS ABSOLUTE COUNT (BEAKER) (test 0.13 K/ L 0.00-0.50 xnem=993) BASOPHILS ABSOLUTE COUNT (BEAKER) (test 0.00 K/ L 0.00-0.20 ofqb=474) 0.00POCT-GLUCOSE [id number] 00:13:00 Test Item Value Reference Range Comments POC-GLUCOSE METER (BEAKER) 104 mg/dL 70-110 TESTED AT [address] (test yhwg=7306) [place] [address] POCT-GLUCOSE [id number] 17:43:00 Test Item Value Reference Range Comments POC-GLUCOSE METER (BEAKER) 131 mg/dL 70-110 TESTED AT [address] (test ylvk=6823) [place] [address] TROPONIN [id number] 17:29:00 Test Item Value Reference Range Comments TROPONIN I (BEAKER) (test ymwm=614) < ng/mL 0.00-0.03 Effective 07/06/2014: Reference Range [...] acidosis, acute neurological disease, and persistent tachyarrhythmia.POCT-GLUCOSE [id number] 13:05:00 Test Item Value Reference Range Comments POC-GLUCOSE METER (BEAKER) 94 mg/dL 70-110 TESTED AT [address] (test epmz=0368) [place] [address] RAPID DRUG SCREEN, [id number] 09:31:00 Test Item Value Reference Range Comments BARBITURATE URINE (BEAKER) (test xekt=116) Negative Negative BENZODIAZEPINE SCREEN URINE (BEAKER) (test Negative Negative xetu=819) COCAINE (METAB.) SCREEN (BEAKER) (test sqjf=0428) Negative Negative METHADONE SCREEN (BEAKER) (test vhlz=2217) Negative Negative OPIATE SCREEN URINE (BEAKER) (test gtjc=010) Positive Negative CANNABINOID SCREEN URINE (BEAKER) (test pvjr=526) Negative Negative AMPH/METHAMPH SCREEN (BEAKER) (test rvwo=1468) Negative Negative PHENCYCLIDINE SCREEN URINE (BEAKER) (test bhwu=868) Negative Negative OXYCODONE SCREEN URINE (BEAKER) (test ujog=9946) Negative Negative DRUG CUTOFF CONC.Cocaine 300 ng/mL Cannabinoid 50 ng/mL Benzodiazepine 200 ng/mLBarbiturate 200 ng/ mLPhencyclidine 25 ng/mLOpiate 300 ng/mLMethadone 300 ng/mLAmphetamine/ 1000 ng/mL MethamphetamineOxycodone 300 ng/mLURINALYSIS W/ [id number] 09:29:00 Test Item Value Reference Range Comments COLOR (BEAKER) (test fcdg=691) Colorless CLARITY (BEAKER) (test gedw=049) Clear SPECIFIC GRAVITY UA (BEAKER) (test lcfp=294) 1.050 1.001-1.035 PH UA (BEAKER) (test xtll=894) 7.5 5.0-8.0 PROTEIN UA (BEAKER) (test kcnt=328) Negative Negative GLUCOSE UA (BEAKER) (test kseo=341) Negative Negative KETONES UA (BEAKER) (test ttbz=385) Negative Negative BILIRUBIN UA (BEAKER) (test ktrb=261) Negative Negative BLOOD UA (BEAKER) (test sgga=975) Negative Negative NITRITE UA (BEAKER) (test yrwn=619) Negative Negative LEUKOCYTE ESTERASE UA (BEAKER) (test jmnb=056) Negative Negative UROBILINOGEN UA (BEAKER) (test uvzr=265) 0.2 mg/dL 0.2-1.0 RBC UA (BEAKER) (test vhpp=009) 1 /HPF WBC UA (BEAKER) (test xdiw=681) 1 /HPF SQUAMOUS EPITHELIAL (BEAKER) (test lsij=357) < /HPF SOURCE(BEAKER) (test cjmv=6276) Urine, [place] PLATELET AGGREGATION: FUNCTION [id number] 08:52:00 Test Item Value Reference Range Comments WEAK ADP RESULT(BEAKER) (test 13 % 60-91 cgrk=2506) PLATELET FUNCTION SCREEN 0-39% indicates marked platelet INTERP (BEAKER) (test dysfunction cytn=2981) [id number] Racquel Acevedo MD (BEAKER) (test zzqu=0287) (electronic signature) PLATELET COUNT AGG (BEAKER) 141 K/CU MM 150-430 (test wuhv=3521) TROPONIN [id number] 05:06:00 Test Item Value Reference Range Comments TROPONIN I (BEAKER) (test igxn=872) < ng/mL 0.00-0.03 Effective 07/06/2014: Reference Range [...] renalfailure, acidosis, acute neurological disease, and persistent tachyarrhythmia.[id number] 04:56: 00 Test Item Value Reference Range Comments MAGNESIUM (BEAKER) (test 2.0 mg/dL 1.6-2.6 Specimen slightly hemolyzed zcva=150) [id number] 04:56:00 Test Item Value Reference Range Comments PHOSPHORUS (BEAKER) (test 1.9 mg/dL 2.3-4.7 Specimen slightly hemolyzed yjfn=137) BASIC METABOLIC [id number] 04:56:00 Test Item Value Reference Range Comments SODIUM (BEAKER) (test 140 meq/L 136-145 grak=523) POTASSIUM (BEAKER) (test 4.3 meq/L 3.5-5.1 Specimen slightly lcjx=691) hemolyzed CHLORIDE (BEAKER) (test 109 meq/L 98-107 psll=397) CO2 (BEAKER) (test 22 meq/L 22-29 uvgm=863) BLOOD UREA NITROGEN 19 mg/dL 7-21 (BEAKER) (test dwfs=877) CREATININE (BEAKER) (test 1.07 mg/dL 0.57-1.25 Specimen slightly tixm=251) hemolyzed GLUCOSE RANDOM (BEAKER) 111 mg/dL 70-105 (test isvv=074) CALCIUM (BEAKER) (test 8.6 mg/dL 8.4-10.2 ezzx=996) EGFR (BEAKER) (test 69 mL/min/1.73 sq m ESTIMATED GFR IS NOT hxsk=2087) ACCURATE CREATININE CLEARANCE IN PREDICTING GLOMERULAR FILTRATION RATE. ESTIMATED GFR IS NOT APPLICABLE FOR DIALYSIS PATIENTS. [id number] 04:49:00 Test Item Value Reference Range Comments COL/EPI CLOSURE TIME (BEAKER) (test lkhn=5252) 104 Seconds 78-191 COL/ADP CLOSURE TIME (BEAKER) (test smac=1455) 65 Seconds 43-122 PLATELET COUNT AGG (BEAKER) (test jmbn=5979) 148 K/CU MM 150-430 CBC W/PLT COUNT & AUTO [id number] 04:34:00 Test Item Value Reference Range Comments WHITE BLOOD CELL COUNT (BEAKER) (test jtsk=804) 6.1 K/ L 4.0-10.0 RED BLOOD CELL COUNT (BEAKER) (test mgju=031) 4.57 M/ L 4.20-5.80 HEMOGLOBIN (BEAKER) (test mdbl=027) 13.5 GM/DL 13.0-16.8 HEMATOCRIT (BEAKER) (test hbdx=994) 40.9 % 40.0-50.0 MEAN CORPUSCULAR VOLUME (BEAKER) (test iwwo=151) 89.5 fL 82.0-98.0 MEAN CORPUSCULAR HEMOGLOBIN (BEAKER) (test 29.6 pg 27.0-33.0 tcse=863) MEAN CORPUSCULAR HEMOGLOBIN CONC (BEAKER) (test 33.1 GM/DL 32.0-36.0 iuig=394) RED CELL DISTRIBUTION WIDTH (BEAKER) (test 11.9 % 10.3-14.2 gbrk=036) PLATELET COUNT (BEAKER) (test befl=249) 148 K/CU MM 150-430 MEAN PLATELET VOLUME (BEAKER) (test ygrj=024) 7.2 fL 6.5-10.5 NUCLEATED RED BLOOD CELLS (BEAKER) (test 0 /100 WBC 0-0 kzws=661) NEUTROPHILS RELATIVE PERCENT (BEAKER) (test 81 % svul=841) LYMPHOCYTES RELATIVE PERCENT (BEAKER) (test 11 % ysiy=895) MONOCYTES RELATIVE PERCENT (BEAKER) (test 5 % gozs=756) EOSINOPHILS RELATIVE PERCENT (BEAKER) (test 2 % kdwt=633) BASOPHILS RELATIVE PERCENT (BEAKER) (test 0 % wmgp=901) NEUTROPHILS ABSOLUTE COUNT (BEAKER) (test 4.93 K/ L 1.80-8.00 mwsr=934) LYMPHOCYTES ABSOLUTE COUNT (BEAKER) (test 0.69 K/ L 1.48-4.50 qvcp=298) MONOCYTES ABSOLUTE COUNT (BEAKER) (test 0.30 K/ L 0.00-1.30 xndl=914) EOSINOPHILS ABSOLUTE COUNT (BEAKER) (test 0.14 K/ L 0.00-0.50 uull=408) BASOPHILS ABSOLUTE COUNT (BEAKER) (test 0.01 K/ L 0.00-0.20 fame=341) 0.00
--- NOTE | 2019-04-27 03:44 | ER ---
Nurse's Notes [facility] Name: Nelson Murillo Age: 74 yrs Sex: Male : 1945 Arrival Date: 04/27/2019 Time: 00:37 Bed 15 Private MD: Cliff Alvarez C Diagnosis: Contusion of other part of head Presentation: 04/27 00:59 Presenting complaint: states: reports she heard a thump. Reported pt was ea complaining of headache and was feeling nauseous "I think he must have hit his head on the rail" reported history of multiple brain bleeds. Care prior to arrival: None. Mechanism of Injury: Fall out of bed an unknown distance. Trauma event details: Injury occurred in the [facility], Injury occurred: at home. Injury occurred: April 27, 2019 Injury occurred at: 00:30. 00:59 Acuity: HILARIA 3 ea 00:59 Method Of Arrival: Wheelchair ea 01:00 Risk Assessment: Do you want to hurt yourself or someone else? Patient reports no ea desire to harm self or others. Initial Sepsis Screen: Does the patient meet any 2 criteria? No. Patient's initial sepsis screen is negative. Does the patient have a suspected source of infection? No. Patient's initial sepsis screen is negative. 01:00 Transition of care: patient was not received from another setting of care. Onset of ea symptoms was April 27, 2019. Trauma Activation: Alert Physician: ED Physician; Name: ; Notified At: ; Arrived At: Physician: General Surgeon; Name: ; Notified At: ; Arrived At: Physician: Radiology; Name: ; Notified At: ; Arrived At: Physician: Respiratory; Name: ; Notified At: ; Arrived At: Physician: Lab; Name: ; Notified At: ; Arrived At: Historical: - Allergies: 01:11 blood thinners; ea 01:11 Ativan; ea 01:11 Aspirin; ea - Home Meds: 01:11 Dilantin 200mg Oral cap twice a day [Active]; Dilantin 30 mg Oral cap daily [Active]; ea ezetimibe 10 mg Oral nightly [Active]; Feosol 325 mg (65 mg iron) Oral tab daily [Active]; glucosamine sulfate 1500 every day Oral [Active]; metoprolol tartrate 25 mg Oral tab 1 tab 2 times per day [Active]; omeprazole 40 mg Oral cpDR once daily [Active]; simvastatin 80 mg Oral tab nightly [Active]; Vitamin B-12 1,000 mcg Oral tab daily [Active]; - PMHx: 01:11 TIA; subdural hematoma; 12/02/16; 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 - Social history:: Smoking status: Patient/guardian denies using tobacco. - Immunization history: Last tetanus immunization: - up to date. - Ebola Screening: : No symptoms or risks identified at this time. Screenin:03 Abuse screen: Denies threats or abuse. Nutritional screening: No deficits noted. ea Tuberculosis screening: No symptoms or risk factors identified. Fall Risk Fall in past 12 months (25 points). Primary Survey: 01:04 NO uncontrolled hemorrhage observed. A: The patient needs verbal stimulation to ea respond. Airway: patent. Breathing/Chest: Respiratory pattern: regular, Respiratory effort: spontaneous, unlabored, Chest inspection: symmetrical rise and fall of the chest. Circulation: Skin color: pink, Skin temperature: warm. Disability Alert. Exposure/Environment: A warming method has been applied: A warm blanket has been provided to the patient. 02:10 Reassessment Airway Airway Patent Breathing/Chest Respiratory pattern Regular ea Respiratory effort Spontaneous. Secondary Survey: 01:04 Musculoskeletal: Circulation, motion, and sensation intact. ea Assessment: 01:02 Reassessment: Pt taken to CT. ea 01:30 General: Appears uncomfortable, Behavior is appropriate for age. Pain: Complains of ea pain in left eye, left druze, left frontal area, left side of the back of head, left temporal area, left occipital area and left base of the skull Pain currently is 8 out of 10 on a pain scale. Neuro: Level of Consciousness is awake, alert, obeys commands, Oriented to person, place, situation. Cardiovascular: Patient's skin is warm and dry. Respiratory: Airway is patent Respiratory effort is even, unlabored, Respiratory pattern is regular, symmetrical. Derm: Skin is pink, warm \\T\\ dry. 02:30 Reassessment: Patient and/or family updated on plan of care and expected duration. Pain ea level reassessed. Pt resting with eyes closed, respirations even and unlabored. Chest expansion even and symmetrical. Family at bedside. 03:33 Reassessment: Patient and/or family updated on plan of care and expected duration. Pain ea level reassessed. Pt resting with eyes closed, respirations even and unlabored. Chest expansions even and symmetrical. No s/s of pain or discomfort noted at this time. Pt family at bedside. 04:09 Reassessment: Patient and/or family updated on plan of care and expected duration. Pain ea level reassessed. Pt reports he is feeling better. Discharge instruction given to patient and , both verbalized the understanding of instruction. Pt left ED via wheelchair per staff accompanied by . Pt assisted to private vehicle, pt tolerated well. Vital Signs: 01:00 BP 144 / 82; Pulse 66; Resp 18; Temp 97.8; Pulse Ox 95% ; Weight 81.65 kg; Height 5 ft. ea 8 in. (172.72 cm); 02:52 BP 121 / 82; Pulse 93; Resp 16; Temp 97.5; Pulse Ox 95% ; ea 03:50 BP 131 / 85; Pulse 60; Resp 18; Temp 97.6(TE); Pulse Ox 97% ; ea 01:00 Body Mass Index 27.37 (81.65 kg, 172.72 cm) ea Leif Coma Score: 01:00 Eye Response: spontaneous(4). Verbal Response: oriented(5). Motor Response: obeys ea commands(6). Total: 15. 01:00 Eye Response: spontaneous(4). Verbal Response: oriented(5). Motor Response: obeys ea commands(6). Total: 15. 02:52 Eye Response: spontaneous(4). Verbal Response: oriented(5). Motor Response: obeys ea commands(6). Total: 15. 03:50 Eye Response: spontaneous(4). Verbal Response: oriented(5). Motor Response: obeys ea commands(6). Total: 15. Trauma Score (Adult): 01:00 Eye Response: spontaneous(1); Verbal Response: oriented(1); Motor Response: obeys ea commands(2); Systolic BP: > 89 mm Hg(4); Respiratory Rate: 10 to 29 per min(4); [place] Score: 15; Trauma Score: 12 ED Course: 00:37 Patient arrived in ED. mr 00:38 Cliff Alvarez MD is Private Physician. mr 00:58 Marvin Nick, RN is Primary Nurse. rr5 01:00 Patient has correct armband on for positive identification. Placed in gown. Bed in low ea position. Call light in reach. Side rails up X2. 01:00 Patient placed in an exam room, on a stretcher, on pulse oximetry. ea 01:00 Patient maintains SpO2 saturation greater than 95% on room air. Thermoregulation: warm ea blanket given to patient. 01:02 Triage completed. ea 01:04 rFancisco Amor MD is Attending Physician. 01:23 CT Head C Spine In Process Unspecified. EDOK 04:08 No provider procedures requiring assistance completed. Patient did not have IV access ea during this emergency room visit. Administered Medications: No medications were administered Intake: 04:13 PO: 0ml; Total: 0ml. ea Outcome: 03:43 Discharge ordered by . 04:08 Discharged to home via wheelchair, with significant other. ea 04:08 Condition: stable 04:08 Discharge instructions given to patient, family, Instructed on discharge instructions, follow up and referral plans. Demonstrated understanding of instructions, follow-up care. 04:13 Patient's length of stay was not longer than 2 hours. ea 04:13 Patient left the ED. ea Signatures: Dispatcher [employer] [facility] Lexii HagerAlyssa, RN Francisco Garnica ea, MD MD Marvin Nick, RN RN rr5
--- NOTE | 2019-04-27 03:45 | EDPHYS ---
Physician Documentation [facility] Name: Nelson Murillo Age: 74 yrs Sex: Male : 1945 Arrival Date: 04/27/2019 Time: 00:37 Bed 15 Private MD: Cliff Alvarez C ED Physician Francisco Amor HPI: 04/27 03:46 This 74 yrs old Male presents to ER via Wheelchair with complaints of Fall gs Injury. 03:46 Details of fall: The patient fell from a supine position, out of bed. Onset: The gs symptoms/episode began/occurred acutely, just prior to arrival. Associated injuries: The patient sustained injury to the head, contusion. Severity of symptoms: At their worst the symptoms were moderate, in the emergency department the symptoms are unchanged. The patient has experienced similar episodes in the past, a few times. The patient has not recently seen a physician. 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 - Social history:: Smoking status: Patient/guardian denies using tobacco. - Immunization history: Last tetanus immunization: - up to date. - Ebola Screening: : No symptoms or risks identified at this time. ROS: 03:46 All other systems are negative. gs Exam: 03:46 Eyes: Pupils equal round and reactive to light, extra-ocular motions intact. Lids and gs lashes normal. Conjunctiva and sclera are non-icteric and not injected. Cornea within normal limits. Periorbital areas with no swelling, redness, or edema. ENT: Nares patent. No nasal discharge, no septal abnormalities noted. Tympanic membranes are normal and external auditory canals are clear. Oropharynx with no redness, swelling, or masses, exudates, or evidence of obstruction, uvula midline. Mucous membranes moist. Neck: Trachea midline, no thyromegaly or masses palpated, and no cervical lymphadenopathy. Supple, full range of motion without nuchal rigidity, or vertebral point tenderness. No Meningismus. Chest/axilla: Normal chest wall appearance and motion. Nontender with no deformity. No lesions are appreciated. Cardiovascular: Regular rate and rhythm with a normal S1 and S2. No gallops, murmurs, or rubs. Normal PMI, no JVD. No pulse deficits. Respiratory: Lungs have equal breath sounds bilaterally, clear to auscultation and percussion. No rales, rhonchi or wheezes noted. No increased work of breathing, no retractions or nasal flaring. Abdomen/GI: Soft, non-tender, with normal bowel sounds. No distension or tympany. No guarding or rebound. No evidence of tenderness throughout. Back: No spinal tenderness. No costovertebral tenderness. Full range of motion. Skin: Warm, dry with normal turgor. Normal color with no rashes, no lesions, and no evidence of cellulitis. MS/ Extremity: Pulses equal, no cyanosis. Neurovascular intact. Full, normal range of motion. Neuro: Awake and alert, GCS 15, oriented to person, place, time, and situation. Cranial nerves II-XII grossly intact. Motor strength 5/5 in all extremities. Sensory grossly intact. Cerebellar exam normal. Normal gait. 03:46 Constitutional: The patient appears alert, awake. 03:46 Head/face: Noted is tenderness, that is mild, of the left episcopal. Vital Signs: 01:00 BP 144 / 82; Pulse 66; Resp 18; Temp 97.8; Pulse Ox 95% ; Weight 81.65 kg; Height 5 ft. ea 8 in. (172.72 cm); 02:52 BP 121 / 82; Pulse 93; Resp 16; Temp 97.5; Pulse Ox 95% ; ea 03:50 BP 131 / 85; Pulse 60; Resp 18; Temp 97.6(TE); Pulse Ox 97% ; ea 01:00 Body Mass Index 27.37 (81.65 kg, 172.72 cm) ea [place] Coma Score: 01:00 Eye Response: spontaneous(4). Verbal Response: oriented(5). Motor Response: obeys ea commands(6). Total: 15. 01:00 Eye Response: spontaneous(4). Verbal Response: oriented(5). Motor Response: obeys ea commands(6). Total: 15. 02:52 Eye Response: spontaneous(4). Verbal Response: oriented(5). Motor Response: obeys ea commands(6). Total: 15. 03:50 Eye Response: spontaneous(4). Verbal Response: oriented(5). Motor Response: obeys ea commands(6). Total: 15. Trauma Score (Adult): 01:00 Eye Response: spontaneous(1); Verbal Response: oriented(1); Motor Response: obeys ea commands(2); Systolic BP: > 89 mm Hg(4); Respiratory Rate: 10 to 29 per min(4); [place] Score: 15; Trauma Score: 12 MDM: 01:23 Patient medically screened. 03:46 Differential diagnosis: closed head injury, contusion, fracture. Data reviewed: vital gs signs, nurses notes. Response to treatment: the patient's symptoms have markedly improved after treatment, the patient's condition has returned to base line, and as a result, I will discharge patient. 04/27 00:55 Order name: CT Head C Spine bb Administered Medications: No medications were administered Disposition: 04/27/19 03:43 Discharged to Home. Impression: Contusion of other part of head. - Condition is Stable. - Discharge Instructions: Head Injury, Adult. - Medication Reconciliation Form, Thank You Letter, Antibiotic Education, Prescription Opioid Use form. - Follow up: Private Physician; When: 2 - 3 days; Reason: Re-evaluation by your physician. Signatures: Dispatcher [employer] Alyssa Madden RN RN ea Starr, Gregory, MD MD Corrections: (The following items were deleted from the chart) 04:13 03:43 04/27/2019 03:43 Discharged to Home. Impression: Contusion of other part of head. ea Condition is Stable. Forms are Medication Reconciliation Form, Thank You Letter, Antibiotic Education, Prescription Opioid Use. Follow up: Private Physician; When: 2 - 3 days; Reason: Re-evaluation by your physician. gs
--- NOTE | 2019-04-28 12:23 | RAD REPORT ---
EXAM DESCRIPTION: CT Head C Spine Mpr Wo Con CLINICAL HISTORY: 74 years Male PAIN TECHNIQUE: Contiguous axial CT images obtained through the brain and cervical spine without IV contr ast. Coronal and sagittal reformatted images also provided. This CT exam was performed according to our departmental dose-optimization program, which includes on e or more of the following dose reduction techniques: automated exposure control, adjustment of the m A and/or kV according to patient size, and/or use of iterative reconstruction technique. COMPARISON: Images of the brain are compared with the prior CT dated 03/25/2016 FINDINGS: From a left frontal craniotomy again noted. There is no acute skull fracture, intracranial hemorrhage, extraaxial collection, or acute transcorti margy infarction. The ventricles are normal in size and contour without mass effect or midline shift. T he visualized paranasal sinuses, tympanomastoid cavities, and orbits are normal. There is no acute cervical fracture. There is straightening of the normal cervical lordosis with slig ht anterolisthesis of C5 on C6, C6 on C7, and C7 on T1. Mild multilevel degenerative disc disease and uncovertebral arthrosis. No aggressive osseous lesion. There is no central canal stenosis at any cervical level. There is mild to moderate scattered multile manpreet neural foraminal narrowing. No visualized acute paraspinal soft tissue abnormality. Carotid atherosclerosis. Calcified granuloma in the left lung apex. IMPRESSION: No acute intracranial abnormality. No acute cervical spine injury. Mild multilevel degenerative changes. Electronically signed by: Shaista Garza MD 04/27/2019 1:37 AM CDT Due to temporary technical issues with the PACS/Fluency reporting system, reports are being signed by the in house radiologist as a courtesy to ensure prompt reporting. The interpreting radiologist is f ully responsible for the content of the report.
== END 2019-04-27 04:13 | disposition home or self-care (01) ==
LOC: ER 00:36
DX: S00.83XA Contusion of other part of head, initial encounter (principal); W06.XXXA Fall from bed, initial encounter; Y93.9 Activity, unspecified; Y92.9 Unspecified place or not applicable; Z86.73 Personal history of transient ischemic attack (TIA), and cerebral infarction without residual deficits; Z88.6 Allergy status to analgesic agent; Z88.8 Allergy status to other drugs, medicaments and biological substances; I10 Essential (primary) hypertension; E78.00 Pure hypercholesterolemia, unspecified; G40.909 Epilepsy, unspecified, not intractable, without status epilepticus
CPT/HCPCS: 70450; 72125; 99284

== ENCOUNTER 2020-06-16 13:41 | Emergency (ER) | payer OTHER ==
--- OUTSIDE RECORDS SUMMARY | 2020-06-16 14:18 | XMS REPORT | Clinical Summary ---
:1945 Author Organization [facility] Address [address] [place] [id number] Care Team Providers Name Role Phone Belkis [...] Midline low back pain with left-sided sciatica, unspec ified chronicity 12/19/2016 Midline low back pain with left-sided sciatica 017 Intracranial subdural hematoma 12/01/2016 Focal and partial seizures 11/19/2016 Aphasia 10/27/2016 Headache due to intracranial disease 10/18/2016 SDH (subdural hematoma) 10/13/2016 SAH (subarachnoid hemorrhage) 10/11/2016 Seizure disorder Hypertension, essential NGA (obstructive sleep apnea) Social History Tobacco Use Types Packs/Day Years Used Date Former Smoker Cigarettes Quit: 08/19/18 71 Alcohol Use Drinks/Week oz/Week Comments No quit in 2006 Sex Assigned at Date Recorded Not on file Last Filed Vital Signs Not on file Plan of Treatment Not on file Implants Implanted Type Area Community Development Aide Device Shelf Model / Identifier Expiration Serial / Date Lot Matrix Floseal Hemo W/O Ndl 10 [id number] - [id number] Cement/Fi Left: POLLARD:BIOSCI 04/18/2018 [id number] / Implanted: Qty: 1 on 12/02/2016 by Michael Alonso MD at [facility] ller/Adhe Head / sive [id number] Matrix Floseal Hemo W/O Ndl 10 [id number] - [id number] Cement/Fi Left: POLLARD:BIOSCI 05/18/2018 [id number] / Implanted: Qty: 1 on 12/25/2016 by Michael Alonso MD at [facility] ller/Adhe Head / sive [id number] Cover [place] Hole Low Prof 14mm [id number] - [id number] Fracture/ Left: RAPHAEL:RAPHAEL [id number] / Implanted: Qty: 1 on 12/02/2016 by Michael Alonso MD at [facility] Fixation Head LEIBINGER / Plt W/Tab Un3 2h 53-37500 - [id number] Fracture/ Left: RAPHAEL:CRAN IOMA 53- [id number] / Implanted: Qty: 2 on 12/02/2016 by Michael Alonso MD at [facility] Fixation Head XILLOFACIAL / Scr Un3 [place] Self Drl 1.5x4mm [id number] - [id number] Fracture/ Left: RAPHAEL:CRANIOMA [id number] / Implanted: Qty: 9 on 12/02/2016 by Michael Alonso MD at [facility] Fixation Head XILLOFACIAL / Cath Bactiseal Evd 82-1745 - [id number] Neuro Left: J &J:JAKYMAN & 06/18/2017 [id number] / Implanted: Qty: 1 on 12/25/2016 by Michael Alonso MD at [facility] Head SHURTLE / [id number] Results Not on fileafter 06/16/2019 Insurance Payer Benefit Plan / Subscriber ID Effective Dates Phone Addre ss Type Group MEDICARE MEDICARE A B [id number] 2009-Present Medicare AETNA - [place] CARE AETNA INDEMNITY [id number] 2012-Present Comm NON CONTR Advance Directives For more information, please contact: [phone] Code Status Date Activated Date Inactivated Comments [...]
--- OUTSIDE RECORDS SUMMARY | 2020-06-16 14:22 | XMS REPORT | Continuity of Care Document ---
:1945 Author Organization [facility] t Address [facility] [address] [place] [address] Care Team Providers Name Role Phone Sharpless Primary Care Physician Unavailable IVANA DE PAZ Attending Clinician Unavailable CECELIA Attending Clinician Unavailable Dru ANGELES Attending Clinician Unavailable JAYLAN GAFFNEY Attending Clinician Unavailable GABRIELA FERRARI Attending Clinician Unavailable IVANA DE PAZ Admitting Clinician Unavailable CECELIA Admitting Clinician Unavailable Dru ANGELES Admitting Clinician Unavailable JAYLAN GAFFNEY Admitting Clinician Unavailable GABRIELA FERRARI Admitting Clinician Unavailable Problems Condition Condition Condition Status Onset Resolution Last Treating Co mments Source Name Details Category Date Date Treatment Clinician Date Delirium [facility] History of History of Disease Active [facility] subdural [facility]ural [facility] hemorrhage hemorrhage [facility] Me dical 00 Center Hyponatrem Hyponatrem Disease Active [facility] ia ia 01[facility] DVT (deep DVT (deep Disease Active [facility] venous venous [facility]13 [facility] thrombosis thrombosis 00:00: Me dical ) ) 00 Center Acute deep Acute deep Disease Active [facility] vein vein 01-12 [facility] thrombosis thrombosis 00:00: Me dical (DVT) of (DVT) of 00 Center popliteal popliteal vein of vein of right right lower lower extremity extremity Thrombocyt Thrombocyt Disease Active [facility] openia openia 01-12 [facility] Hyperlipid Hyperlipid Disease Active [facility] emia emia 01-12 [facility] GERD GERD Disease Active [facility] (gastroeso (gastroeso 5-27 [facility] - phageal phageal 00:00: Medical reflux reflux 00 Center disease) disease) Acute Acute Disease Active [facility] encephalop encephalop 5-09 [facility] - athy athy 00:00: Medical 00 [place] Midline Midline Disease Active [facility] shift of shift of 12-25 [facility] brain brain 00:00: Medical 00 [place] Weakness Weakness Disease [facility] of both [facility] - lower lower 00:00: Medical extremitie extremitie 00 Ce nter s s Midline Midline Disease Active [facility] low back low back 5-03 [facility] - pain with pain with 00:00: Medi margy left-sided left-sided 00 Ce nter sciatica, sciatica, unspecifie unspecifie d d chronicity chronicity Midline Midline Disease Active [facility] low back low back 5-02 [facility] - pain with pain with 00:00: Medi margy left-sided left-sided 00 Ce nter sciatica sciatica 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 4-15 [facility] - subdural subdural 00:00: Medica l hematoma hematoma 00 Center Focal and Focal and Disease Active [facility] partial partial 4-03 [facility] seizures seizures 00:00: Medica l 00 Center Aphasia Aphasia Disease Active [facility] Headache Headache Disease [facility] due to due to [facility] - intracrani intracrani 00:00: Me dical al disease al disease 00 Ce nter SDH SDH Disease Active [facility] (subdural (subdural 2-25 [facility] - hematoma) hematoma) 00:00: Medi margy 00 Center SAH SAH Disease Active [facility] (subarachn (subarachn 2-23 [facility] - oid oid 00:00: Medical hemorrhage hemorrhage 00 Ce nter ) ) Seizure Seizure Disease Active [facility] disorder disorder [employer] Hypertensi Hypertensi Disease Active [facility] on, on, [facility] - essential essential [facility] 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[facility] (obstructi (obstructi [facility] - ve sleep ve sleep Medica l apnea) apnea) Center Allergies, Adverse Reactions, Alerts This patient has no known allergies or adverse reactions. Social History Social Habit Start Date Stop Date Quantity Comments Source Sex Assigned At [facility] Alcohol intake 2016-12-25 2016-12-25 Current [facility] Chung es - 00:00:00 00:00:00 non-drinker of Medical Ce nter alcohol (finding) Alcohol Comment 2016-10-13 2016-10-13 quit in 2006 [facility] - 00:00:00 00:00:00 [facility] Center History of 1968-08-19 Current smoker [facility] Sm[facility] Status Start Date Stop Date Source Former smoker 2016-12-25 00:00:00 2016-12-25 00:00:00 [facility] Medications Ordered Filled Start Stop Current Ordering Indication Dosage Frequency Signature Comments Components Source Medication Medication Date Date Medication? Clinician (SIG) Name Name omeprazole Yes 20mg Q.5D Take [address] (PRILOSEC) 6-12 by mouth 2 [facility] - 20 MG 15:17: (two) Medical capsule 52 times Center daily. pravastatin Yes 40mg QD Take [address] [facility] [address] (PRAVACHOL) 6-12 by mouth [facility] - 40 MG 15:17: daily. Medical tablet 52 Center Procedures This patient has no known procedures. Results Test Description Test Time Test Comments Results Result Comments Source CBC W/PLT COUNT & AUTO DIFFERENTIAL 2017-01-28 10:16:00 Test Item Value Reference Range Interpretation Comme nts WHITE BLOOD CELL COUNT (BEAKER) (test code = 775) 2.8 K/ L 4.0- 10.0 L RED BLOOD CELL COUNT (BEAKER) (test code = 761) 3.42 M/ L 4.20-5 .80 L HEMOGLOBIN (BEAKER) (test code = 410) 9.3 GM/DL 13.0-16.8 L HEMATOCRIT (BEAKER) (test code = 411) 29.3 % 40.0-50.0 L MEAN CORPUSCULAR VOLUME (BEAKER) (test code = 753) 85.7 fL 82. 0-98.0 MEAN CORPUSCULAR HEMOGLOBIN (BEAKER) (test code = 751) 27.1 pg 27.0-33.0 MEAN CORPUSCULAR HEMOGLOBIN CONC (BEAKER) (test code = 752) 31.7 GM/DL 32.0-36.0 L RED CELL DISTRIBUTION WIDTH (BEAKER) (test code = 412) 16.5 % 10.3-14.2 H PLATELET COUNT (BEAKER) (test code = 756) 163 K/CU MM 150-430 MEAN PLATELET VOLUME (BEAKER) (test code = 754) 6.6 fL 6.5-10 .5 NUCLEATED RED BLOOD CELLS (BEAKER) (test code = 413) 0 /100 WBC 0 -0 NEUTROPHILS RELATIVE PERCENT (BEAKER) (test code = 429) 64 % LYMPHOCYTES RELATIVE PERCENT (BEAKER) (test code = 430) 18 % MONOCYTES RELATIVE PERCENT (BEAKER) (test code = 431) 11 % EOSINOPHILS RELATIVE PERCENT (BEAKER) (test code = 432) 7 % BASOPHILS RELATIVE PERCENT (BEAKER) (test code = 437) 0 % NEUTROPHILS ABSOLUTE COUNT (BEAKER) (test code = 670) 1.75 K/ L 1.80-8.00 L LYMPHOCYTES ABSOLUTE COUNT (BEAKER) (test code = 414) 0.50 K/ L 1.48-4.50 L MONOCYTES ABSOLUTE COUNT (BEAKER) (test code = 415) 0.30 K/ L 0. 00-1.30 EOSINOPHILS ABSOLUTE COUNT (BEAKER) (test code = 416) 0.20 K/ L 0.00-0.50 BASOPHILS ABSOLUTE COUNT (BEAKER) (test code = 417) 0.01 K/ L 0. 00-0.20 0.00(MANUAL DIFFERENTIAL)2017-01-28 10:16:00 Test Item Value Reference Range Interpretation Comments TOTAL COUNTED (BEAKER) (test code = 1351) WBC MORPHOLOGY (BEAKER) (test code = Normal 487) PLT MORPHOLOGY (BEAKER) (test code = Normal 486) RBC MORPHOLOGY (BEAKER) (test code = Normal 762) BASIC METABOLIC [id number] 07:36:00 Test Item Value Reference Range Interpretation Comments SODIUM (BEAKER) 134 meq/L 136-145 L (test code = 381) POTASSIUM (BEAKER) 4.0 meq/L 3.5-5.1 (test code = 379) CHLORIDE (BEAKER) 102 meq/L 98-107 (test code = 382) CO2 (BEAKER) (test 22 meq/L 22-29 code = 355) BLOOD UREA NITROGEN 12 mg/dL 7-21 (BEAKER) (test code = 354) CREATININE (BEAKER) 0.79 mg/dL 0.57-1.25 (test code = 358) GLUCOSE RANDOM 94 mg/dL 70-105 (BEAKER) (test code = 652) CALCIUM (BEAKER) 8.6 mg/dL 8.4-10.2 (test code = 697) EGFR (BEAKER) (test 97 mL/min/1.73 ESTIMA ROSIE GFR IS code = 1092) sq m NOT ACCURATE CREATININE CLEARANCE IN PREDICTING GLOMERULAR FILTRATION RATE . ESTIMATED GFR I S NOT APPLICABLE FOR DIALYSIS PATIEN TS. [id number] 07:33:00 Test Item Value Reference Range Interpretation Comments PROTIME (BEAKER) (test code = 14.0 seconds 11.7-14.7 759) INR (BEAKER) (test code = 370) 1.1 <=5.9 PARTIAL THROMBOPLASTIN TIME 31.2 seconds 22.5-36.0 (BEAKER) (test code = 760) RECOMMENDED COUMADIN/WARFARIN INR THERAPY RANGESSTANDARD DOSE: 2.0 - 3.0 Includes: PROPHYLAXIS forvenous thrombosis, systemic embolization; TREATMENT for venous thrombosis and/or pulmonary embolus.HIGH RISK: Target INR is 2.5-3.5 for patients with mechanical heart valves.[id number] 16:00:00 Test Item Value Reference Range Interpretation Comments PHOSPHORUS (BEAKER) (test code = 3.6 mg/dL 2.3-4.7 604) [id number] 16:00:00 Test Item Value Reference Range Interpretation Comments MAGNESIUM (BEAKER) (test code = 2.0 mg/dL 1.6-2.6 627) BASIC METABOLIC [id number] 16:00:00 Test Item Value Reference Range Interpretation Comments SODIUM (BEAKER) 134 meq/L 136-145 L (test code = 381) POTASSIUM (BEAKER) 4.2 meq/L 3.5-5.1 (test code = 379) CHLORIDE (BEAKER) 102 meq/L 98-107 (test code = 382) CO2 (BEAKER) (test 25 meq/L 22-29 code = 355) BLOOD UREA NITROGEN 15 mg/dL 7-21 (BEAKER) (test code = 354) CREATININE (BEAKER) 0.78 mg/dL 0.57-1.25 (test code = 358) GLUCOSE RANDOM 111 mg/dL 70-105 H (BEAKER) (test code = 652) CALCIUM (BEAKER) 8.3 mg/dL 8.4-10.2 L (test code = 697) EGFR (BEAKER) (test 99 mL/min/1.73 ESTIMA ROSIE GFR IS code = 1092) sq m NOT ACCURATE CREATININE CLEARANCE IN PREDICTING GLOMERULAR FILTRATION RATE . ESTIMATED GFR I S NOT APPLICABLE FOR DIALYSIS PATIEN TS. CBC W/PLT COUNT & AUTO [id number] 15:02:00 Test Item Value Reference Range Interpretation Comments WHITE BLOOD CELL COUNT (BEAKER) 2.8 K/ L 4.0-10.0 L (test code = 775) RED BLOOD CELL COUNT (BEAKER) 3.15 M/ L 4.20-5.80 L (test code = 761) HEMOGLOBIN (BEAKER) (test code = 8.9 GM/DL 13.0-16.8 L 410) HEMATOCRIT (BEAKER) (test code = 27.1 % 40.0-50.0 L 411) MEAN CORPUSCULAR VOLUME (BEAKER) 85.9 fL 82.0-98.0 (test code = 753) MEAN CORPUSCULAR HEMOGLOBIN 28.3 pg 27.0-33.0 (BEAKER) (test code = 751) MEAN CORPUSCULAR HEMOGLOBIN CONC 33.0 GM/DL 32.0-36.0 (BEAKER) (test code = 752) RED CELL DISTRIBUTION WIDTH 15.8 % 10.3-14.2 H (BEAKER) (test code = 412) PLATELET COUNT (BEAKER) (test 153 K/CU MM 150-430 code = 756) MEAN PLATELET VOLUME (BEAKER) 6.5 fL 6.5-10.5 (test code = 754) NUCLEATED RED BLOOD CELLS 0 /100 WBC 0-0 (BEAKER) (test code = 413) NEUTROPHILS RELATIVE PERCENT 68 % (BEAKER) (test code = 429) LYMPHOCYTES RELATIVE PERCENT 15 % (BEAKER) (test code = 430) MONOCYTES RELATIVE PERCENT 9 % (BEAKER) (test code = 431) EOSINOPHILS RELATIVE PERCENT 7 % (BEAKER) (test code = 432) BASOPHILS RELATIVE PERCENT 1 % (BEAKER) (test code = 437) NEUTROPHILS ABSOLUTE COUNT 1.89 K/ L 1.80-8.00 (BEAKER) (test code = 670) LYMPHOCYTES ABSOLUTE COUNT 0.42 K/ L 1.48-4.50 L (BEAKER) (test code = 414) MONOCYTES ABSOLUTE COUNT (BEAKER) 0.26 K/ L 0.00-1.30 (test code = 415) EOSINOPHILS ABSOLUTE COUNT 0.20 K/ L 0.00-0.50 (BEAKER) (test code = 416) BASOPHILS ABSOLUTE COUNT (BEAKER) 0.02 K/ L 0.00-0.20 (test code = 417) (MANUAL DIFFERENTIAL)2017-01-27 15:02:00 Test Item Value Reference Range Interpretation Comments TOTAL COUNTED (BEAKER) (test code = 1351) WBC MORPHOLOGY (BEAKER) (test code = Normal 487) PLT MORPHOLOGY (BEAKER) (test code = Normal 486) RBC MORPHOLOGY (BEAKER) (test code = Normal 762) [id number] 07:21:00 Test Item Value Reference Range Interpretation Comments PROTIME (BEAKER) (test code = 14.0 seconds 11.7-14.7 759) INR (BEAKER) (test code = 370) 1.1 <=5.9 PARTIAL THROMBOPLASTIN TIME 35.9 seconds 22.5-36.0 (BEAKER) (test code = 760) RECOMMENDED COUMADIN/WARFARIN INR THERAPY RANGESSTANDARD DOSE: 2.0 - 3.0 Includes: PROPHYLAXIS forvenous thrombosis, systemic embolization; TREATMENT for venous thrombosis and/or pulmonary embolus.HIGH RISK: Target INR is 2.5-3.5 for patients with mechanical heart valves.CALCIUM, [id number] 06:48:00 Test Item Value Reference Range Interpretation Comments CALCIUM IONIZED (BEAKER) (test 1.05 mmol/L 1.12-1.27 L code = 698) PH, BLOOD (BEAKER) (test code = 7.40 1810) CBC W/PLT COUNT & AUTO [id number] 13:02:00 Test Item Value Reference Range Interpretation Comments WHITE BLOOD CELL COUNT (BEAKER) 2.9 K/ L 4.0-10.0 L (test code = 775) RED BLOOD CELL COUNT (BEAKER) 3.06 M/ L 4.20-5.80 L (test code = 761) HEMOGLOBIN (BEAKER) (test code = 8.8 GM/DL 13.0-16.8 L 410) HEMATOCRIT (BEAKER) (test code = 26.4 % 40.0-50.0 L 411) MEAN CORPUSCULAR VOLUME (BEAKER) 86.3 fL 82.0-98.0 (test code = 753) MEAN CORPUSCULAR HEMOGLOBIN 28.6 pg 27.0-33.0 (BEAKER) (test code = 751) MEAN CORPUSCULAR HEMOGLOBIN CONC 33.2 GM/DL 32.0-36.0 (BEAKER) (test code = 752) RED CELL DISTRIBUTION WIDTH 14.4 % 10.3-14.2 H (BEAKER) (test code = 412) PLATELET COUNT (BEAKER) (test 145 K/CU MM 150-430 L code = 756) MEAN PLATELET VOLUME (BEAKER) 6.4 fL 6.5-10.5 L (test code = 754) NUCLEATED RED BLOOD CELLS 0 /100 WBC 0-0 (BEAKER) (test code = 413) NEUTROPHILS RELATIVE PERCENT 67 % (BEAKER) (test code = 429) LYMPHOCYTES RELATIVE PERCENT 17 % (BEAKER) (test code = 430) MONOCYTES RELATIVE PERCENT 11 % (BEAKER) (test code = 431) EOSINOPHILS RELATIVE PERCENT 5 % (BEAKER) (test code = 432) BASOPHILS RELATIVE PERCENT 0 % (BEAKER) (test code = 437) NEUTROPHILS ABSOLUTE COUNT 1.98 K/ L 1.80-8.00 (BEAKER) (test code = 670) LYMPHOCYTES ABSOLUTE COUNT 0.50 K/ L 1.48-4.50 L (BEAKER) (test code = 414) MONOCYTES ABSOLUTE COUNT (BEAKER) 0.31 K/ L 0.00-1.30 (test code = 415) EOSINOPHILS ABSOLUTE COUNT 0.15 K/ L 0.00-0.50 (BEAKER) (test code = 416) BASOPHILS ABSOLUTE COUNT (BEAKER) 0.00 K/ L 0.00-0.20 (test code = 417) (MANUAL DIFFERENTIAL)2017-01-26 13:02:00 Test Item Value Reference Range Interpretation Comments TOTAL COUNTED (BEAKER) (test code = 1351) WBC MORPHOLOGY (BEAKER) (test code = Normal 487) PLT MORPHOLOGY (BEAKER) (test code = Normal 486) ANISOCYTOSIS (BEAKER) (test code = 1+ few 961) POLYCHROMATOPHILLIC RBCS(BEAKER) (test 1+ few code = 478) [id number] 07:15:00 Test Item Value Reference Range Interpretation Comments PHOSPHORUS (BEAKER) (test code = 3.2 mg/dL 2.3-4.7 604) [id number] 07:15:00 Test Item Value Reference Range Interpretation Comments MAGNESIUM (BEAKER) (test code = 2.1 mg/dL 1.6-2.6 627) BASIC METABOLIC [id number] 07:15:00 Test Item Value Reference Range Interpretation Comments SODIUM (BEAKER) 132 meq/L 136-145 L (test code = 381) POTASSIUM (BEAKER) 4.3 meq/L 3.5-5.1 (test code = 379) CHLORIDE (BEAKER) 101 meq/L 98-107 (test code = 382) CO2 (BEAKER) (test 25 meq/L 22-29 code = 355) BLOOD UREA NITROGEN 15 mg/dL 7-21 (BEAKER) (test code = 354) CREATININE (BEAKER) 0.78 mg/dL 0.57-1.25 (test code = 358) GLUCOSE RANDOM 95 mg/dL 70-105 (BEAKER) (test code = 652) CALCIUM (BEAKER) 8.1 mg/dL 8.4-10.2 L (test code = 697) EGFR (BEAKER) (test 99 mL/min/1.73 ESTIMA ROSIE GFR IS code = 1092) sq m NOT ACCURATE CREATININE CLEARANCE IN PREDICTING GLOMERULAR FILTRATION RATE . ESTIMATED GFR I S NOT APPLICABLE FOR DIALYSIS PATIEN TS. CALCIUM, [id number] 06:56:00 Test Item Value Reference Range Interpretation Comments CALCIUM IONIZED (BEAKER) (test 1.00 mmol/L 1.12-1.27 L code = 698) PH, BLOOD (BEAKER) (test code = 7.39 1810) [id number] 06:45:00 Test Item Value Reference Range Interpretation Comments PROTIME (BEAKER) (test code = 14.6 seconds 11.7-14.7 759) INR (BEAKER) (test code = 370) 1.2 <=5.9 PARTIAL THROMBOPLASTIN TIME 31.6 seconds 22.5-36.0 (BEAKER) (test code = 760) RECOMMENDED COUMADIN/WARFARIN INR THERAPY RANGESSTANDARD DOSE: 2.0 - 3.0 Includes: PROPHYLAXIS forvenous thrombosis, systemic embolization; TREATMENT for venous thrombosis and/or pulmonary embolus.HIGH RISK: Target INR is 2.5-3.5 for patients with mechanical heart valves.CBC W/PLT COUNT & AUTO DIFFERENTIAL 2017-01-25 07:23:00 Test Item Value Reference Range Interpretation Comments WHITE BLOOD CELL COUNT (BEAKER) 3.8 K/ L 4.0-10.0 L (test code = 775) RED BLOOD CELL COUNT (BEAKER) 3.10 M/ L 4.20-5.80 L (test code = 761) HEMOGLOBIN (BEAKER) (test code = 8.8 GM/DL 13.0-16.8 L 410) HEMATOCRIT (BEAKER) (test code = 26.7 % 40.0-50.0 L 411) MEAN CORPUSCULAR VOLUME (BEAKER) 85.9 fL 82.0-98.0 (test code = 753) MEAN CORPUSCULAR HEMOGLOBIN 28.2 pg 27.0-33.0 (BEAKER) (test code = 751) MEAN CORPUSCULAR HEMOGLOBIN CONC 32.9 GM/DL 32.0-36.0 (BEAKER) (test code = 752) RED CELL DISTRIBUTION WIDTH 15.8 % 10.3-14.2 H (BEAKER) (test code = 412) PLATELET COUNT (BEAKER) (test 134 K/CU MM 150-430 L code = 756) MEAN PLATELET VOLUME (BEAKER) 6.4 fL 6.5-10.5 L (test code = 754) NUCLEATED RED BLOOD CELLS 0 /100 WBC 0-0 (BEAKER) (test code = 413) NEUTROPHILS RELATIVE PERCENT 75 % (BEAKER) (test code = 429) LYMPHOCYTES RELATIVE PERCENT 12 % (BEAKER) (test code = 430) MONOCYTES RELATIVE PERCENT 9 % (BEAKER) (test code = 431) EOSINOPHILS RELATIVE PERCENT 3 % (BEAKER) (test code = 432) BASOPHILS RELATIVE PERCENT 1 % (BEAKER) (test code = 437) NEUTROPHILS ABSOLUTE COUNT 2.87 K/ L 1.80-8.00 (BEAKER) (test code = 670) LYMPHOCYTES ABSOLUTE COUNT 0.46 K/ L 1.48-4.50 L (BEAKER) (test code = 414) MONOCYTES ABSOLUTE COUNT (BEAKER) 0.36 K/ L 0.00-1.30 (test code = 415) EOSINOPHILS ABSOLUTE COUNT 0.13 K/ L 0.00-0.50 (BEAKER) (test code = 416) BASOPHILS ABSOLUTE COUNT (BEAKER) 0.02 K/ L 0.00-0.20 (test code = 417) 0.000.500.000.000.000.000.000.00(MANUAL DIFFERENTIAL)2017-01-25 07:23:00 Test Item Value Reference Range Interpretation Comments TOTAL COUNTED (BEAKER) (test code = 1351) WBC MORPHOLOGY (BEAKER) (test code = Normal 487) PLT MORPHOLOGY (BEAKER) (test code = Normal 486) POLYCHROMATOPHILLIC RBCS(BEAKER) (test 1+ few code = 478) BASIC METABOLIC [id number] 04:52:00 Test Item Value Reference Range Interpretation Comments SODIUM (BEAKER) 131 meq/L 136-145 L (test code = 381) POTASSIUM (BEAKER) 4.2 meq/L 3.5-5.1 (test code = 379) CHLORIDE (BEAKER) 100 meq/L 98-107 (test code = 382) CO2 (BEAKER) (test 23 meq/L 22-29 code = 355) BLOOD UREA NITROGEN 15 mg/dL 7-21 (BEAKER) (test code = 354) CREATININE (BEAKER) 0.76 mg/dL 0.57-1.25 (test code = 358) GLUCOSE RANDOM 103 mg/dL 70-105 (BEAKER) (test code = 652) CALCIUM (BEAKER) 8.3 mg/dL 8.4-10.2 L (test code = 697) EGFR (BEAKER) (test 102 mL/min/1.73 ESTIM ATED GFR IS code = 1092) sq m NOT ACCURATE CREATININE CLEARANCE IN PREDICTING GLOMERULAR FILTRATION RATE . ESTIMATED GFR I S NOT APPLICABLE FOR DIALYSIS PATIEN TS. [id number] 04:04:00 Test Item Value Reference Range Interpretation Comments PROTIME (BEAKER) (test code = 13.8 seconds 11.7-14.7 759) INR (BEAKER) (test code = 370) 1.1 <=5.9 PARTIAL THROMBOPLASTIN TIME 29.3 seconds 22.5-36.0 (BEAKER) (test code = 760) RECOMMENDED COUMADIN/WARFARIN INR THERAPY RANGESSTANDARD DOSE: 2.0 - 3.0 Includes: PROPHYLAXIS forvenous thrombosis, systemic embolization; TREATMENT for venous thrombosis and/or pulmonary embolus.HIGH RISK: Target INR is 2.5-3.5 for patients with mechanical heart valves.CBC W/PLT COUNT & AUTO DIFFERENTIAL 2017-01-24 06:44:00 Test Item Value Reference Range Interpretation Comments WHITE BLOOD CELL COUNT (BEAKER) 3.8 K/ L 4.0-10.0 L (test code = 775) RED BLOOD CELL COUNT (BEAKER) 3.13 M/ L 4.20-5.80 L (test code = 761) HEMOGLOBIN (BEAKER) (test code = 8.9 GM/DL 13.0-16.8 L 410) HEMATOCRIT (BEAKER) (test code = 27.2 % 40.0-50.0 L 411) MEAN CORPUSCULAR VOLUME (BEAKER) 86.7 fL 82.0-98.0 (test code = 753) MEAN CORPUSCULAR HEMOGLOBIN 28.3 pg 27.0-33.0 (BEAKER) (test code = 751) MEAN CORPUSCULAR HEMOGLOBIN CONC 32.6 GM/DL 32.0-36.0 (BEAKER) (test code = 752) RED CELL DISTRIBUTION WIDTH 14.4 % 10.3-14.2 H (BEAKER) (test code = 412) PLATELET COUNT (BEAKER) (test 135 K/CU MM 150-430 L code = 756) MEAN PLATELET VOLUME (BEAKER) 6.5 fL 6.5-10.5 (test code = 754) NUCLEATED RED BLOOD CELLS 0 /100 WBC 0-0 (BEAKER) (test code = 413) NEUTROPHILS RELATIVE PERCENT 75 % (BEAKER) (test code = 429) LYMPHOCYTES RELATIVE PERCENT 13 % (BEAKER) (test code = 430) MONOCYTES RELATIVE PERCENT 9 % (BEAKER) (test code = 431) EOSINOPHILS RELATIVE PERCENT 4 % (BEAKER) (test code = 432) BASOPHILS RELATIVE PERCENT 0 % (BEAKER) (test code = 437) NEUTROPHILS ABSOLUTE COUNT 2.84 K/ L 1.80-8.00 (BEAKER) (test code = 670) LYMPHOCYTES ABSOLUTE COUNT 0.48 K/ L 1.48-4.50 L (BEAKER) (test code = 414) MONOCYTES ABSOLUTE COUNT (BEAKER) 0.33 K/ L 0.00-1.30 (test code = 415) EOSINOPHILS ABSOLUTE COUNT 0.14 K/ L 0.00-0.50 (BEAKER) (test code = 416) BASOPHILS ABSOLUTE COUNT (BEAKER) 0.00 K/ L 0.00-0.20 (test code = 417) [id number] 06:23:00 Test Item Value Reference Range Interpretation Comments PHOSPHORUS (BEAKER) (test code = 3.5 mg/dL 2.3-4.7 604) [id number] 06:23:00 Test Item Value Reference Range Interpretation Comments MAGNESIUM (BEAKER) (test code = 2.1 mg/dL 1.6-2.6 627) BASIC METABOLIC [id number] 06:23:00 Test Item Value Reference Range Interpretation Comments SODIUM (BEAKER) 132 meq/L 136-145 L (test code = 381) POTASSIUM (BEAKER) 4.3 meq/L 3.5-5.1 (test code = 379) CHLORIDE (BEAKER) 100 meq/L 98-107 (test code = 382) CO2 (BEAKER) (test 25 meq/L 22-29 code = 355) BLOOD UREA NITROGEN 17 mg/dL 7-21 (BEAKER) (test code = 354) CREATININE (BEAKER) 0.84 mg/dL 0.57-1.25 (test code = 358) GLUCOSE RANDOM 102 mg/dL 70-105 (BEAKER) (test code = 652) CALCIUM (BEAKER) 8.3 mg/dL 8.4-10.2 L (test code = 697) EGFR (BEAKER) (test 91 mL/min/1.73 ESTIMA ROSIE GFR IS code = 1092) sq m NOT ACCURATE CREATININE CLEARANCE IN PREDICTING GLOMERULAR FILTRATION RATE . ESTIMATED GFR I S NOT APPLICABLE FOR DIALYSIS PATIEN TS. [id number] 05:42:00 Test Item Value Reference Range Interpretation Comments PROTIME (BEAKER) (test code = 14.0 seconds 11.7-14.7 759) INR (BEAKER) (test code = 370) 1.1 <=5.9 PARTIAL THROMBOPLASTIN TIME 30.1 seconds 22.5-36.0 (BEAKER) (test code = 760) RECOMMENDED COUMADIN/WARFARIN INR THERAPY RANGESSTANDARD DOSE: 2.0 - 3.0 Includes: PROPHYLAXIS forvenous thrombosis, systemic embolization; TREATMENT for venous thrombosis and/or pulmonary embolus.HIGH RISK: Target INR is 2.5-3.5 for patients with mechanical heart valves.CALCIUM, [id number] 05:34:00 Test Item Value Reference Range Interpretation Comments CALCIUM IONIZED (BEAKER) (test 1.08 mmol/L 1.12-1.27 L code = 698) PH, BLOOD (BEAKER) (test code = 7.38 1260) CBC W/PLT COUNT & AUTO [id number] 05:27:00 Test Item Value Reference Range Interpretation Comments WHITE BLOOD CELL COUNT (BEAKER) 4.9 K/ L 4.0-10.0 (test code = 775) RED BLOOD CELL COUNT (BEAKER) 3.22 M/ L 4.20-5.80 L (test code = 761) HEMOGLOBIN (BEAKER) (test code = 8.9 GM/DL 13.0-16.8 L 410) HEMATOCRIT (BEAKER) (test code = 27.9 % 40.0-50.0 L 411) MEAN CORPUSCULAR VOLUME (BEAKER) 86.8 fL 82.0-98.0 (test code = 753) MEAN CORPUSCULAR HEMOGLOBIN 27.6 pg 27.0-33.0 (BEAKER) (test code = 751) MEAN CORPUSCULAR HEMOGLOBIN CONC 31.8 GM/DL 32.0-36.0 L (BEAKER) (test code = 752) RED CELL DISTRIBUTION WIDTH 14.5 % 10.3-14.2 H (BEAKER) (test code = 412) PLATELET COUNT (BEAKER) (test 137 K/CU MM 150-430 L code = 756) MEAN PLATELET VOLUME (BEAKER) 6.6 fL 6.5-10.5 (test code = 754) NUCLEATED RED BLOOD CELLS 0 /100 WBC 0-0 (BEAKER) (test code = 413) NEUTROPHILS RELATIVE PERCENT 77 % (BEAKER) (test code = 429) LYMPHOCYTES RELATIVE PERCENT 13 % (BEAKER) (test code = 430) MONOCYTES RELATIVE PERCENT 8 % (BEAKER) (test code = 431) EOSINOPHILS RELATIVE PERCENT 2 % (BEAKER) (test code = 432) BASOPHILS RELATIVE PERCENT 0 % (BEAKER) (test code = 437) NEUTROPHILS ABSOLUTE COUNT 3.77 K/ L 1.80-8.00 (BEAKER) (test code = 670) LYMPHOCYTES ABSOLUTE COUNT 0.62 K/ L 1.48-4.50 L (BEAKER) (test code = 414) MONOCYTES ABSOLUTE COUNT (BEAKER) 0.39 K/ L 0.00-1.30 (test code = 415) EOSINOPHILS ABSOLUTE COUNT 0.12 K/ L 0.00-0.50 (BEAKER) (test code = 416) BASOPHILS ABSOLUTE COUNT (BEAKER) 0.01 K/ L 0.00-0.20 (test code = 417) 0.00CALCIUM, [id number] 05:25:00 Test Item Value Reference Range Interpretation Comments CALCIUM IONIZED (BEAKER) (test 1.06 mmol/L 1.12-1.27 L code = 698) PH, BLOOD (BEAKER) (test code = 7.42 1810) [id number] 05:10:00 Test Item Value Reference Range Interpretation Comments PHOSPHORUS (BEAKER) (test code = 3.8 mg/dL 2.3-4.7 604) [id number] 05:10:00 Test Item Value Reference Range Interpretation Comments MAGNESIUM (BEAKER) (test code = 2.0 mg/dL 1.6-2.6 627) BASIC METABOLIC [id number] 05:10:00 Test Item Value Reference Range Interpretation Comments SODIUM (BEAKER) 129 meq/L 136-145 L (test code = 381) POTASSIUM (BEAKER) 4.6 meq/L 3.5-5.1 (test code = 379) CHLORIDE (BEAKER) 99 meq/L 98-107 (test code = 382) CO2 (BEAKER) (test 20 meq/L 22-29 L code = 355) BLOOD UREA NITROGEN 19 mg/dL 7-21 (BEAKER) (test code = 354) CREATININE (BEAKER) 0.84 mg/dL 0.57-1.25 (test code = 358) GLUCOSE RANDOM 103 mg/dL 70-105 (BEAKER) (test code = 652) CALCIUM (BEAKER) 8.6 mg/dL 8.4-10.2 (test code = 697) EGFR (BEAKER) (test 91 mL/min/1.73 ESTIMA ROSIE GFR IS code = 1092) sq m NOT ACCURATE CREATININE CLEARANCE IN PREDICTING GLOMERULAR FILTRATION RATE . ESTIMATED GFR I S NOT APPLICABLE FOR DIALYSIS PATIEN TS. [id number] 05:03:00 Test Item Value Reference Range Interpretation Comments PROTIME (BEAKER) (test code = 15.7 seconds 11.7-14.7 H 759) INR (BEAKER) (test code = 370) 1.3 <=5.9 PARTIAL THROMBOPLASTIN TIME 33.7 seconds 22.5-36.0 (BEAKER) (test code = 760) RECOMMENDED COUMADIN/WARFARIN INR THERAPY RANGESSTANDARD DOSE: 2.0 - 3.0 Includes: PROPHYLAXIS forvenous thrombosis, systemic embolization; TREATMENT for venous thrombosis and/or pulmonary embolus.HIGH RISK: Target INR is 2.5-3.5 for patients with mechanical heart valves.CALCIUM, [id number] 06:19:00 Test Item Value Reference Range Interpretation Comments CALCIUM IONIZED (BEAKER) (test 0.95 mmol/L 1.12-1.27 L code = 698) PH, BLOOD (BEAKER) (test code = 7.50 1810) CBC W/PLT COUNT & AUTO [id number] 06:16:00 Test Item Value Reference Range Interpretation Comments WHITE BLOOD CELL COUNT (BEAKER) 6.3 K/ L 4.0-10.0 (test code = 775) RED BLOOD CELL COUNT (BEAKER) 3.40 M/ L 4.20-5.80 L (test code = 761) HEMOGLOBIN (BEAKER) (test code = 9.6 GM/DL 13.0-16.8 L 410) HEMATOCRIT (BEAKER) (test code = 29.5 % 40.0-50.0 L 411) MEAN CORPUSCULAR VOLUME (BEAKER) 86.8 fL 82.0-98.0 (test code = 753) MEAN CORPUSCULAR HEMOGLOBIN 28.3 pg 27.0-33.0 (BEAKER) (test code = 751) MEAN CORPUSCULAR HEMOGLOBIN CONC 32.6 GM/DL 32.0-36.0 (BEAKER) (test code = 752) RED CELL DISTRIBUTION WIDTH 14.2 % 10.3-14.2 (BEAKER) (test code = 412) PLATELET COUNT (BEAKER) (test 135 K/CU MM 150-430 L code = 756) MEAN PLATELET VOLUME (BEAKER) 6.7 fL 6.5-10.5 (test code = 754) NUCLEATED RED BLOOD CELLS 0 /100 WBC 0-0 (BEAKER) (test code = 413) NEUTROPHILS RELATIVE PERCENT 81 % (BEAKER) (test code = 429) LYMPHOCYTES RELATIVE PERCENT 8 % (BEAKER) (test code = 430) MONOCYTES RELATIVE PERCENT 8 % (BEAKER) (test code = 431) EOSINOPHILS RELATIVE PERCENT 2 % (BEAKER) (test code = 432) BASOPHILS RELATIVE PERCENT 0 % (BEAKER) (test code = 437) NEUTROPHILS ABSOLUTE COUNT 5.14 K/ L 1.80-8.00 (BEAKER) (test code = 670) LYMPHOCYTES ABSOLUTE COUNT 0.54 K/ L 1.48-4.50 L (BEAKER) (test code = 414) MONOCYTES ABSOLUTE COUNT (BEAKER) 0.51 K/ L 0.00-1.30 (test code = 415) EOSINOPHILS ABSOLUTE COUNT 0.13 K/ L 0.00-0.50 (BEAKER) (test code = 416) BASOPHILS ABSOLUTE COUNT (BEAKER) 0.03 K/ L 0.00-0.20 (test code = 417) [id number] 06:00:00 Test Item Value Reference Range Interpretation Comments PHOSPHORUS (BEAKER) (test code = 3.6 mg/dL 2.3-4.7 604) [id number] 06:00:00 Test Item Value Reference Range Interpretation Comments MAGNESIUM (BEAKER) (test code = 2.2 mg/dL 1.6-2.6 627) BASIC METABOLIC [id number] 06:00:00 Test Item Value Reference Range Interpretation Comments SODIUM (BEAKER) 129 meq/L 136-145 L (test code = 381) POTASSIUM (BEAKER) 4.7 meq/L 3.5-5.1 (test code = 379) CHLORIDE (BEAKER) 98 meq/L 98-107 (test code = 382) CO2 (BEAKER) (test 21 meq/L 22-29 L code = 355) BLOOD UREA NITROGEN 20 mg/dL 7-21 (BEAKER) (test code = 354) CREATININE (BEAKER) 0.89 mg/dL 0.57-1.25 (test code = 358) GLUCOSE RANDOM 114 mg/dL 70-105 H (BEAKER) (test code = 652) CALCIUM (BEAKER) 8.5 mg/dL 8.4-10.2 (test code = 697) EGFR (BEAKER) (test 85 mL/min/1.73 ESTIMA ROSIE GFR IS code = 1092) sq m NOT ACCURATE CREATININE CLEARANCE IN PREDICTING GLOMERULAR FILTRATION RATE . ESTIMATED GFR I S NOT APPLICABLE FOR DIALYSIS PATIEN TS. [id number] 05:49:00 Test Item Value Reference Range Interpretation Comments PROTIME (BEAKER) (test code = 14.6 seconds 11.7-14.7 759) INR (BEAKER) (test code = 370) 1.2 <=5.9 PARTIAL THROMBOPLASTIN TIME 30.8 seconds 22.5-36.0 (BEAKER) (test code = 760) RECOMMENDED COUMADIN/WARFARIN INR THERAPY RANGESSTANDARD DOSE: 2.0 - 3.0 Includes: PROPHYLAXIS forvenous thrombosis, systemic embolization; TREATMENT for venous thrombosis and/or pulmonary embolus.HIGH RISK: Target INR is 2.5-3.5 for patients with mechanical heart valves.[id number] 13:57:00 Test Item Value Reference Range Interpretation Comments FIBRINOGEN LEVEL (BEAKER) (test 347 mg/dl 225-434 code = 658) CBC W/PLT COUNT & AUTO [id number] 07:20:00 Test Item Value Reference Range Interpretation Comments WHITE BLOOD CELL COUNT (BEAKER) 6.3 K/ L 4.0-10.0 (test code = 775) RED BLOOD CELL COUNT (BEAKER) 3.41 M/ L 4.20-5.80 L (test code = 761) HEMOGLOBIN (BEAKER) (test code = 9.9 GM/DL 13.0-16.8 L 410) HEMATOCRIT (BEAKER) (test code = 29.5 % 40.0-50.0 L 411) MEAN CORPUSCULAR VOLUME (BEAKER) 86.4 fL 82.0-98.0 (test code = 753) MEAN CORPUSCULAR HEMOGLOBIN 29.1 pg 27.0-33.0 (BEAKER) (test code = 751) MEAN CORPUSCULAR HEMOGLOBIN CONC 33.6 GM/DL 32.0-36.0 (BEAKER) (test code = 752) RED CELL DISTRIBUTION WIDTH 15.7 % 10.3-14.2 H (BEAKER) (test code = 412) PLATELET COUNT (BEAKER) (test 126 K/CU MM 150-430 L code = 756) MEAN PLATELET VOLUME (BEAKER) 6.8 fL 6.5-10.5 (test code = 754) NUCLEATED RED BLOOD CELLS 0 /100 WBC 0-0 (BEAKER) (test code = 413) NEUTROPHILS RELATIVE PERCENT 82 % (BEAKER) (test code = 429) LYMPHOCYTES RELATIVE PERCENT 8 % (BEAKER) (test code = 430) MONOCYTES RELATIVE PERCENT 8 % (BEAKER) (test code = 431) EOSINOPHILS RELATIVE PERCENT 2 % (BEAKER) (test code = 432) BASOPHILS RELATIVE PERCENT 0 % (BEAKER) (test code = 437) NEUTROPHILS ABSOLUTE COUNT 5.22 K/ L 1.80-8.00 (BEAKER) (test code = 670) LYMPHOCYTES ABSOLUTE COUNT 0.53 K/ L 1.48-4.50 L (BEAKER) (test code = 414) MONOCYTES ABSOLUTE COUNT (BEAKER) 0.50 K/ L 0.00-1.30 (test code = 415) EOSINOPHILS ABSOLUTE COUNT 0.10 K/ L 0.00-0.50 (BEAKER) (test code = 416) BASOPHILS ABSOLUTE COUNT (BEAKER) 0.01 K/ L 0.00-0.20 (test code = 417) 0.00BASI METABOLIC [id number] 06:11:00 Test Item Value Reference Range Interpretation Comments SODIUM (BEAKER) 130 meq/L 136-145 L (test code = 381) POTASSIUM (BEAKER) 4.8 meq/L 3.5-5.1 (test code = 379) CHLORIDE (BEAKER) 96 meq/L 98-107 L (test code = 382) CO2 (BEAKER) (test 25 meq/L 22-29 code = 355) BLOOD UREA NITROGEN 26 mg/dL 7-21 H (BEAKER) (test code = 354) CREATININE (BEAKER) 0.92 mg/dL 0.57-1.25 (test code = 358) GLUCOSE RANDOM 109 mg/dL 70-105 H (BEAKER) (test code = 652) CALCIUM (BEAKER) 8.8 mg/dL 8.4-10.2 (test code = 697) EGFR (BEAKER) (test 82 mL/min/1.73 ESTIMA ROSIE GFR IS code = 1092) sq m NOT ACCURATE CREATININE CLEARANCE IN PREDICTING GLOMERULAR FILTRATION RATE . ESTIMATED GFR I S NOT APPLICABLE FOR DIALYSIS PATIEN TS. [id number] 06:01:00 Test Item Value Reference Range Interpretation Comments PROTIME (BEAKER) (test code = 15.4 seconds 11.7-14.7 H 759) INR (BEAKER) (test code = 370) 1.2 <=5.9 PARTIAL THROMBOPLASTIN TIME 35.3 seconds 22.5-36.0 (BEAKER) (test code = 760) RECOMMENDED COUMADIN/WARFARIN INR THERAPY RANGESSTANDARD DOSE: 2.0 - 3.0 Includes: PROPHYLAXIS forvenous thrombosis, systemic embolization; TREATMENT for venous thrombosis and/or pulmonary embolus.HIGH RISK: Target INR is 2.5-3.5 for patients with mechanical heart valves.CBC W/PLT COUNT & AUTO DIFFERENTIAL [id number] 07:13:00 Test Item Value Reference Range Interpretation Comments WHITE BLOOD CELL COUNT (BEAKER) 6.9 K/ L 4.0-10.0 (test code = 775) RED BLOOD CELL COUNT (BEAKER) 3.46 M/ L 4.20-5.80 L (test code = 761) HEMOGLOBIN (BEAKER) (test code = 9.9 GM/DL 13.0-16.8 L 410) HEMATOCRIT (BEAKER) (test code = 30.0 % 40.0-50.0 L 411) MEAN CORPUSCULAR VOLUME (BEAKER) 86.6 fL 82.0-98.0 (test code = 753) MEAN CORPUSCULAR HEMOGLOBIN 28.5 pg 27.0-33.0 (BEAKER) (test code = 751) MEAN CORPUSCULAR HEMOGLOBIN CONC 32.9 GM/DL 32.0-36.0 (BEAKER) (test code = 752) RED CELL DISTRIBUTION WIDTH 15.2 % 10.3-14.2 H (BEAKER) (test code = 412) PLATELET COUNT (BEAKER) (test 138 K/CU MM 150-430 L code = 756) MEAN PLATELET VOLUME (BEAKER) 6.6 fL 6.5-10.5 (test code = 754) NUCLEATED RED BLOOD CELLS 0 /100 WBC 0-0 (BEAKER) (test code = 413) NEUTROPHILS RELATIVE PERCENT 86 % (BEAKER) (test code = 429) LYMPHOCYTES RELATIVE PERCENT 5 % (BEAKER) (test code = 430) MONOCYTES RELATIVE PERCENT 7 % (BEAKER) (test code = 431) EOSINOPHILS RELATIVE PERCENT 1 % (BEAKER) (test code = 432) BASOPHILS RELATIVE PERCENT 0 % (BEAKER) (test code = 437) NEUTROPHILS ABSOLUTE COUNT 5.95 K/ L 1.80-8.00 (BEAKER) (test code = 670) LYMPHOCYTES ABSOLUTE COUNT 0.36 K/ L 1.48-4.50 L (BEAKER) (test code = 414) MONOCYTES ABSOLUTE COUNT (BEAKER) 0.50 K/ L 0.00-1.30 (test code = 415) EOSINOPHILS ABSOLUTE COUNT 0.10 K/ L 0.00-0.50 (BEAKER) (test code = 416) BASOPHILS ABSOLUTE COUNT (BEAKER) 0.03 K/ L 0.00-0.20 (test code = 417) 0.00PT/[id number] 06:09:00 Test Item Value Reference Range Interpretation Comments PROTIME (BEAKER) (test code = 16.3 seconds 11.7-14.7 H 759) INR (BEAKER) (test code = 370) 1.3 <=5.9 PARTIAL THROMBOPLASTIN TIME 37.7 seconds 22.5-36.0 H (BEAKER) (test code = 760) RECOMMENDED COUMADIN/WARFARIN INR THERAPY RANGESSTANDARD DOSE: 2.0 - 3.0 Includes: PROPHYLAXIS forvenous thrombosis, systemic embolization; TREATMENT for venous thrombosis and/or pulmonary embolus.HIGH RISK: Target INR is 2.5-3.5 for patients with mechanical heart valves.BASIC METABOLIC [id number] 06:08:00 Test Item Value Reference Range Interpretation Comments SODIUM (BEAKER) 131 meq/L 136-145 L (test code = 381) POTASSIUM (BEAKER) 4.7 meq/L 3.5-5.1 (test code = 379) CHLORIDE (BEAKER) 99 meq/L 98-107 (test code = 382) CO2 (BEAKER) (test 20 meq/L 22-29 L code = 355) BLOOD UREA NITROGEN 21 mg/dL 7-21 (BEAKER) (test code = 354) CREATININE (BEAKER) 0.91 mg/dL 0.57-1.25 (test code = 358) GLUCOSE RANDOM 133 mg/dL 70-105 H (BEAKER) (test code = 652) CALCIUM (BEAKER) 8.8 mg/dL 8.4-10.2 (test code = 697) EGFR (BEAKER) (test 83 mL/min/1.73 ESTIMA ROSIE GFR IS code = 1092) sq m NOT ACCURATE CREATININE CLEARANCE IN PREDICTING GLOMERULAR FILTRATION RATE . ESTIMATED GFR I S NOT APPLICABLE FOR DIALYSIS PATIEN TS. CBC W/PLT COUNT & AUTO [id number] 04:02:00 Test Item Value Reference Range Interpretation Comments WHITE BLOOD CELL COUNT (BEAKER) 4.5 K/ L 4.0-10.0 (test code = 775) RED BLOOD CELL COUNT (BEAKER) 3.14 M/ L 4.20-5.80 L (test code = 761) HEMOGLOBIN (BEAKER) (test code = 9.0 GM/DL 13.0-16.8 L 410) HEMATOCRIT (BEAKER) (test code = 27.3 % 40.0-50.0 L 411) MEAN CORPUSCULAR VOLUME (BEAKER) 86.9 fL 82.0-98.0 (test code = 753) MEAN CORPUSCULAR HEMOGLOBIN 28.5 pg 27.0-33.0 (BEAKER) (test code = 751) MEAN CORPUSCULAR HEMOGLOBIN CONC 32.8 GM/DL 32.0-36.0 (BEAKER) (test code = 752) RED CELL DISTRIBUTION WIDTH 14.7 % 10.3-14.2 H (BEAKER) (test code = 412) PLATELET COUNT (BEAKER) (test 195 K/CU MM 150-430 code = 756) MEAN PLATELET VOLUME (BEAKER) 6.0 fL 6.5-10.5 L (test code = 754) NUCLEATED RED BLOOD CELLS 0 /100 WBC 0-0 (BEAKER) (test code = 413) NEUTROPHILS RELATIVE PERCENT 75 % (BEAKER) (test code = 429) LYMPHOCYTES RELATIVE PERCENT 11 % (BEAKER) (test code = 430) MONOCYTES RELATIVE PERCENT 8 % (BEAKER) (test code = 431) EOSINOPHILS RELATIVE PERCENT 6 % (BEAKER) (test code = 432) BASOPHILS RELATIVE PERCENT 1 % (BEAKER) (test code = 437) NEUTROPHILS ABSOLUTE COUNT 3.34 K/ L 1.80-8.00 (BEAKER) (test code = 670) LYMPHOCYTES ABSOLUTE COUNT 0.49 K/ L 1.48-4.50 L (BEAKER) (test code = 414) MONOCYTES ABSOLUTE COUNT (BEAKER) 0.36 K/ L 0.00-1.30 (test code = 415) EOSINOPHILS ABSOLUTE COUNT 0.26 K/ L 0.00-0.50 (BEAKER) (test code = 416) BASOPHILS ABSOLUTE COUNT (BEAKER) 0.03 K/ L 0.00-0.20 (test code = 417) 0.00BASIC METABOLIC [id number] 04:01:00 Test Item Value Reference Range Interpretation Comments SODIUM (BEAKER) 133 meq/L 136-145 L (test code = 381) POTASSIUM (BEAKER) 4.5 meq/L 3.5-5.1 (test code = 379) CHLORIDE (BEAKER) 101 meq/L 98-107 (test code = 382) CO2 (BEAKER) (test 23 meq/L 22-29 code = 355) BLOOD UREA NITROGEN 15 mg/dL 7-21 (BEAKER) (test code = 354) CREATININE (BEAKER) 0.76 mg/dL 0.57-1.25 (test code = 358) GLUCOSE RANDOM 107 mg/dL 70-105 H (BEAKER) (test code = 652) CALCIUM (BEAKER) 8.4 mg/dL 8.4-10.2 (test code = 697) EGFR (BEAKER) (test 102 mL/min/1.73 ESTIM ATED GFR IS code = 1092) sq m NOT ACCURATE CREATININE CLEARANCE IN PREDICTING GLOMERULAR FILTRATION RATE . ESTIMATED GFR I S NOT APPLICABLE FOR DIALYSIS PATIEN TS. [id number] 03:47:00 Test Item Value Reference Range Interpretation Comments PROTIME (BEAKER) (test code = 14.4 seconds 11.7-14.7 759) INR (BEAKER) (test code = 370) 1.1 <=5.9 PARTIAL THROMBOPLASTIN TIME 31.9 seconds 22.5-36.0 (BEAKER) (test code = 760) RECOMMENDED COUMADIN/WARFARIN INR THERAPY RANGESSTANDARD DOSE: 2.0 - 3.0 Includes: PROPHYLAXIS forvenous thrombosis, systemic embolization; TREATMENT for venous thrombosis and/or pulmonary embolus.HIGH RISK: Target INR is 2.5-3.5 for patients with mechanical heart valves.OCCULT BLOOD, [id number] 15:31:00 Test Item Value Reference Range Interpretation Comments FECAL OCCULT BLOOD (BEAKER) (test Negative Negative code = 618) [id number] 13:55:00 Test Item Value Reference Range Interpretation Comments D-DIMER QUANTITATIVE (BEAKER) 7.42 MG/L FEU <0.50 H (test code = 671) Intended Use: The D-Dimer Assay can be used to aid in the diagnosis of Deep Vein Thrombosis (DVT) and Pulmonary Embolism Disease (PED).In patients with low pre- test probability, various studies concerning STA Liatest D-dimer test have reported that with a cutoff value of 0.50 MG/L FEU, the Negative Predictive Value (NPV) regarding the exclusion of thrombosis is within 95-100% range. [id number] 13:47:00 Test Item Value Reference Range Interpretation Comments FIBRINOGEN LEVEL (BEAKER) (test 424 mg/dl 225-434 code = 658) CBC W/PLT COUNT & AUTO [id number] 06:48:00 Test Item Value Reference Range Interpretation Comments WHITE BLOOD CELL COUNT (BEAKER) 4.7 K/ L 4.0-10.0 (test code = 775) RED BLOOD CELL COUNT (BEAKER) 3.08 M/ L 4.20-5.80 L (test code = 761) HEMOGLOBIN (BEAKER) (test code = 9.0 GM/DL 13.0-16.8 L 410) HEMATOCRIT (BEAKER) (test code = 27.3 % 40.0-50.0 L 411) MEAN CORPUSCULAR VOLUME (BEAKER) 88.5 fL 82.0-98.0 (test code = 753) MEAN CORPUSCULAR HEMOGLOBIN 29.2 pg 27.0-33.0 (BEAKER) (test code = 751) MEAN CORPUSCULAR HEMOGLOBIN CONC 33.0 GM/DL 32.0-36.0 (BEAKER) (test code = 752) RED CELL DISTRIBUTION WIDTH 13.6 % 10.3-14.2 (BEAKER) (test code = 412) PLATELET COUNT (BEAKER) (test 241 K/CU MM 150-430 code = 756) MEAN PLATELET VOLUME (BEAKER) 6.1 fL 6.5-10.5 L (test code = 754) NUCLEATED RED BLOOD CELLS 0 /100 WBC 0-0 (BEAKER) (test code = 413) NEUTROPHILS RELATIVE PERCENT 77 % (BEAKER) (test code = 429) LYMPHOCYTES RELATIVE PERCENT 14 % (BEAKER) (test code = 430) MONOCYTES RELATIVE PERCENT 6 % (BEAKER) (test code = 431) EOSINOPHILS RELATIVE PERCENT 3 % (BEAKER) (test code = 432) BASOPHILS RELATIVE PERCENT 1 % (BEAKER) (test code = 437) NEUTROPHILS ABSOLUTE COUNT 3.63 K/ L 1.80-8.00 (BEAKER) (test code = 670) LYMPHOCYTES ABSOLUTE COUNT 0.64 K/ L 1.48-4.50 L (BEAKER) (test code = 414) MONOCYTES ABSOLUTE COUNT (BEAKER) 0.27 K/ L 0.00-1.30 (test code = 415) EOSINOPHILS ABSOLUTE COUNT 0.14 K/ L 0.00-0.50 (BEAKER) (test code = 416) BASOPHILS ABSOLUTE COUNT (BEAKER) 0.03 K/ L 0.00-0.20 (test code = 417) [id number] 05:05:00 Test Item Value Reference Range Interpretation Comments PARTIAL THROMBOPLASTIN TIME 51.7 seconds 22.5-36.0 H (BEAKER) (test code = 760) POCT-GLUCOSE [id number] 04:37:00 Test Item Value Reference Range Interpretation Comments POC-GLUCOSE METER 108 mg/dL 70-110 TESTED AT [facility] [address] ([facility]) (test code = JOSE TURNER 1538) [id number] 22:51:00 Test Item Value Reference Range Interpretation Comments PARTIAL THROMBOPLASTIN TIME 96.1 seconds 22.5-36.0 H (BEAKER) (test code = 760) [id number] 16:04:00 Test Item Value Reference Range Interpretation Comments PARTIAL THROMBOPLASTIN TIME 93.1 seconds 22.5-36.0 H (BEAKER) (test code = 760) [id number] 06:38:00 Test Item Value Reference Range Interpretation Comments PARTIAL THROMBOPLASTIN TIME 93.0 seconds 22.5-36.0 H (BEAKER) (test code = 760) [id number] 23:08:00 Test Item Value Reference Range Interpretation Comments PARTIAL THROMBOPLASTIN TIME 56.6 seconds 22.5-36.0 H (BEAKER) (test code = 760) [id number] 18:59:00 Test Item Value Reference Range Interpretation Comments PARTIAL THROMBOPLASTIN TIME 28.6 seconds 22.5-36.0 (BEAKER) (test code = 760) PROTHROMBIN [id number] 15:38:00 Test Item Value Reference Range Interpretation Comments PROTIME (BEAKER) (test code = 13.9 seconds 11.7-14.7 759) INR (BEAKER) (test code = 370) 1.1 <=5.9 RECOMMENDED COUMADIN/WARFARIN INR THERAPY RANGESSTANDARD DOSE: 2.0 - 3.0 Includes: PROPHYLAXIS forvenous thrombosis, systemic embolization; TREATMENT for venous thrombosis and/or pulmonary embolus.HIGH RISK: Target INR is 2.5-3.5 for patients with mechanical heart valves.[id number] 12:27:00 Test Item Value Reference Range Interpretation Comments PARTIAL THROMBOPLASTIN TIME 65.9 seconds 22.5-36.0 H (BEAKER) (test code = 760) CBC W/PLT COUNT & AUTO [id number] 06:07:00 Test Item Value Reference Range Interpretation Comments WHITE BLOOD CELL COUNT (BEAKER) 4.4 K/ L 4.0-10.0 (test code = 775) RED BLOOD CELL COUNT (BEAKER) 2.81 M/ L 4.20-5.80 L (test code = 761) HEMOGLOBIN (BEAKER) (test code = 8.7 GM/DL 13.0-16.8 L 410) HEMATOCRIT (BEAKER) (test code = 24.5 % 40.0-50.0 L 411) MEAN CORPUSCULAR VOLUME (BEAKER) 87.3 fL 82.0-98.0 (test code = 753) MEAN CORPUSCULAR HEMOGLOBIN 31.1 pg 27.0-33.0 (BEAKER) (test code = 751) MEAN CORPUSCULAR HEMOGLOBIN CONC 35.6 GM/DL 32.0-36.0 (BEAKER) (test code = 752) RED CELL DISTRIBUTION WIDTH 13.3 % 10.3-14.2 (BEAKER) (test code = 412) PLATELET COUNT (BEAKER) (test 176 K/CU MM 150-430 code = 756) MEAN PLATELET VOLUME (BEAKER) 6.1 fL 6.5-10.5 L (test code = 754) NUCLEATED RED BLOOD CELLS 0 /100 WBC 0-0 (BEAKER) (test code = 413) NEUTROPHILS RELATIVE PERCENT 72 % (BEAKER) (test code = 429) LYMPHOCYTES RELATIVE PERCENT 15 % (BEAKER) (test code = 430) MONOCYTES RELATIVE PERCENT 8 % (BEAKER) (test code = 431) EOSINOPHILS RELATIVE PERCENT 4 % (BEAKER) (test code = 432) BASOPHILS RELATIVE PERCENT 1 % (BEAKER) (test code = 437) NEUTROPHILS ABSOLUTE COUNT 3.14 K/ L 1.80-8.00 (BEAKER) (test code = 670) LYMPHOCYTES ABSOLUTE COUNT 0.65 K/ L 1.48-4.50 L (BEAKER) (test code = 414) MONOCYTES ABSOLUTE COUNT (BEAKER) 0.35 K/ L 0.00-1.30 (test code = 415) EOSINOPHILS ABSOLUTE COUNT 0.17 K/ L 0.00-0.50 (BEAKER) (test code = 416) BASOPHILS ABSOLUTE COUNT (BEAKER) 0.04 K/ L 0.00-0.20 (test code = 417) 0.00BASI METABOLIC [id number] 05:49:00 Test Item Value Reference Range Interpretation Comments SODIUM (BEAKER) 131 meq/L 136-145 L (test code = 381) POTASSIUM (BEAKER) 4.3 meq/L 3.5-5.1 (test code = 379) CHLORIDE (BEAKER) 97 meq/L 98-107 L (test code = 382) CO2 (BEAKER) (test 26 meq/L 22-29 code = 355) BLOOD UREA NITROGEN 17 mg/dL 7-21 (BEAKER) (test code = 354) CREATININE (BEAKER) 0.87 mg/dL 0.57-1.25 (test code = 358) GLUCOSE RANDOM 101 mg/dL 70-105 (BEAKER) (test code = 652) CALCIUM (BEAKER) 8.5 mg/dL 8.4-10.2 (test code = 697) EGFR (BEAKER) (test 87 mL/min/1.73 ESTIMA ROSIE GFR IS code = 1092) sq m NOT ACCURATE CREATININE CLEARANCE IN PREDICTING GLOMERULAR FILTRATION RATE . ESTIMATED GFR I S NOT APPLICABLE FOR DIALYSIS PATILORE TS. [id number] 05:25:00 Test Item Value Reference Range Interpretation Comments PARTIAL THROMBOPLASTIN TIME 83.0 seconds 22.5-36.0 H (BEAKER) (test code = 760) [id number] 22:17:00 Test Item Value Reference Range Interpretation Comments PARTIAL THROMBOPLASTIN TIME 91.0 seconds 22.5-36.0 H (BEAKER) (test code = 760) [id number] 16:11:00 Test Item Value Reference Range Interpretation Comments PARTIAL THROMBOPLASTIN TIME 94.0 seconds 22.5-36.0 H (BEAKER) (test code = 760) [id number] 09:42:00 Test Item Value Reference Range Interpretation Comments PARTIAL THROMBOPLASTIN TIME 89.9 seconds 22.5-36.0 H (BEAKER) (test code = 760) [id number] 02:30:00 Test Item Value Reference Range Interpretation Comments PARTIAL THROMBOPLASTIN TIME 108.5 seconds 22.5-36.0 H (BEAKER) (test code = 760) [id number] 18:47:00 Test Item Value Reference Range Interpretation Comments PARTIAL THROMBOPLASTIN TIME 74.1 seconds 22.5-36.0 H (BEAKER) (test code = 760) [id number] 12:42:00 Test Item Value Reference Range Interpretation Comments PARTIAL THROMBOPLASTIN TIME 48.7 seconds 22.5-36.0 H (BEAKER) (test code = 760) BASIC METABOLIC [id number] 05:29:00 Test Item Value Reference Range Interpretation Comments SODIUM (BEAKER) 126 meq/L 136-145 L (test code = 381) POTASSIUM (BEAKER) 5.0 meq/L 3.5-5.1 (test code = 379) CHLORIDE (BEAKER) 92 meq/L 98-107 L (test code = 382) CO2 (BEAKER) (test 23 meq/L 22-29 code = 355) BLOOD UREA NITROGEN 30 mg/dL 7-21 H (BEAKER) (test code = 354) CREATININE (BEAKER) 1.03 mg/dL 0.57-1.25 (test code = 358) GLUCOSE RANDOM 112 mg/dL 70-105 H (BEAKER) (test code = 652) CALCIUM (BEAKER) 9.0 mg/dL 8.4-10.2 (test code = 697) EGFR (BEAKER) (test 72 mL/min/1.73 ESTIMA ROSIE GFR IS code = 1092) sq m NOT ACCURATE CREATININE CLEARANCE IN PREDICTING GLOMERULAR FILTRATION RATE . ESTIMATED GFR I S NOT APPLICABLE FOR DIALYSIS PATIEN TS. [id number] 05:14:00 Test Item Value Reference Range Interpretation Comments PARTIAL THROMBOPLASTIN TIME 43.1 seconds 22.5-36.0 H (BEAKER) (test code = 760) [id number] 22:32:00 Test Item Value Reference Range Interpretation Comments PARTIAL THROMBOPLASTIN TIME 42.2 seconds 22.5-36.0 H (BEAKER) (test code = 760) [id number] 15:38:00 Test Item Value Reference Range Interpretation Comments PARTIAL THROMBOPLASTIN TIME 36.5 seconds 22.5-36.0 H (BEAKER) (test code = 760) Prior to initiating heparinCBC (HEMOGRAM ONLY)2017-01-13 15:22:00 Test Item Value Reference Range Interpretation Comments WHITE BLOOD CELL COUNT (BEAKER) 11.9 K/ L 4.0-10.0 H (test code = 775) RED BLOOD CELL COUNT (BEAKER) 3.65 M/ L 4.20-5.80 L (test code = 761) HEMOGLOBIN (BEAKER) (test code = 11.2 GM/DL 13.0-16.8 L 410) HEMATOCRIT (BEAKER) (test code = 31.7 % 40.0-50.0 L 411) MEAN CORPUSCULAR VOLUME (BEAKER) 86.8 fL 82.0-98.0 (test code = 753) MEAN CORPUSCULAR HEMOGLOBIN 30.6 pg 27.0-33.0 (BEAKER) (test code = 751) MEAN CORPUSCULAR HEMOGLOBIN CONC 35.3 GM/DL 32.0-36.0 (BEAKER) (test code = 752) RED CELL DISTRIBUTION WIDTH 13.6 % 10.3-14.2 (BEAKER) (test code = 412) PLATELET COUNT (BEAKER) (test 132 K/CU MM 150-430 L code = 756) MEAN PLATELET VOLUME (BEAKER) 6.8 fL 6.5-10.5 (test code = 754) NUCLEATED RED BLOOD CELLS 0 /100 WBC 0-0 (BEAKER) (test code = 413) 0.00BASIC METABOLIC [id number] 06:35:00 Test Item Value Reference Range Interpretation Comments SODIUM (BEAKER) 125 meq/L 136-145 L (test code = 381) POTASSIUM (BEAKER) 4.8 meq/L 3.5-5.1 (test code = 379) CHLORIDE (BEAKER) 94 meq/L 98-107 L (test code = 382) CO2 (BEAKER) (test 19 meq/L 22-29 L code = 355) BLOOD UREA NITROGEN 29 mg/dL 7-21 H (BEAKER) (test code = 354) CREATININE (BEAKER) 1.12 mg/dL 0.57-1.25 (test code = 358) GLUCOSE RANDOM 141 mg/dL 70-105 H (BEAKER) (test code = 652) CALCIUM (BEAKER) 9.0 mg/dL 8.4-10.2 (test code = 697) EGFR (BEAKER) (test 65 mL/min/1.73 ESTIMA ROSIE GFR IS code = 1092) sq m NOT ACCURATE CREATININE CLEARANCE IN PREDICTING GLOMERULAR FILTRATION RATE . ESTIMATED GFR I S NOT APPLICABLE FOR DIALYSIS PATIEN TS. CBC (HEMOGRAM ONLY)2017-01-13 06:24:00 Test Item Value Reference Range Interpretation Comments WHITE BLOOD CELL COUNT (BEAKER) 12.2 K/ L 4.0-10.0 H (test code = 775) RED BLOOD CELL COUNT (BEAKER) 3.84 M/ L 4.20-5.80 L (test code = 761) HEMOGLOBIN (BEAKER) (test code = 10.8 GM/DL 13.0-16.8 L 410) HEMATOCRIT (BEAKER) (test code = 32.9 % 40.0-50.0 L 411) MEAN CORPUSCULAR VOLUME (BEAKER) 85.8 fL 82.0-98.0 (test code = 753) MEAN CORPUSCULAR HEMOGLOBIN 28.3 pg 27.0-33.0 (BEAKER) (test code = 751) MEAN CORPUSCULAR HEMOGLOBIN CONC 33.0 GM/DL 32.0-36.0 (BEAKER) (test code = 752) RED CELL DISTRIBUTION WIDTH 14.7 % 10.3-14.2 H (BEAKER) (test code = 412) PLATELET COUNT (BEAKER) (test 135 K/CU MM 150-430 L code = 756) MEAN PLATELET VOLUME (BEAKER) 7.3 fL 6.5-10.5 (test code = 754) NUCLEATED RED BLOOD CELLS 0 /100 WBC 0-0 (BEAKER) (test code = 413) 0.00PHENYTOIN LEVEL, [id number] 06:21:00 Test Item Value Reference Range Interpretation Comments PHENYTOIN (DILANTIN) (BEAKER) (test 4.0 ug/mL 10.0-20.0 L code = 605) URINALYSIS W/ REFLEX URINE [id number] 12:57:00 Test Item Value Reference Range Interpretation Comments COLOR (BEAKER) (test code = 470) Dark Yellow CLARITY (BEAKER) (test code = Hazy 469) SPECIFIC GRAVITY UA (BEAKER) 1.040 1.001-1.035 H (test code = 468) PH UA (BEAKER) (test code = 467) 6.0 5.0-8.0 PROTEIN UA (BEAKER) (test code = 100 mg/dL Negative A 464) GLUCOSE UA (BEAKER) (test code = Negative Negative 365) KETONES UA (BEAKER) (test code = Trace Negative A 371) BILIRUBIN UA (BEAKER) (test code Negative Negative = 462) BLOOD UA (BEAKER) (test code = Negative Negative 461) NITRITE UA (BEAKER) (test code = Negative Negative 465) LEUKOCYTE ESTERASE UA (BEAKER) Negative Negative (test code = 466) UROBILINOGEN UA (BEAKER) (test 2.0 mg/dL 0.2-1.0 H code = 463) RBC UA (BEAKER) (test code = 519) 1 /HPF WBC UA (BEAKER) (test code = 520) 4 /HPF MUCUS (BEAKER) (test code = 1574) Many HYALINE CASTS (BEAKER) (test code 15 /LPF = 514) SOURCE(BEAKER) (test code = 2795) HEPATIC FUNCTION [id number] 12:45:00 Test Item Value Reference Range Interpretation Comments TOTAL PROTEIN (BEAKER) (test code = 7.0 gm/dL 6.0-8.3 770) ALBUMIN (BEAKER) (test code = 1145) 3.7 g/dL 3.5-5.0 BILIRUBIN TOTAL (BEAKER) (test code 0.5 mg/dL 0.2-1.2 = 377) BILIRUBIN DIRECT (BEAKER) (test 0.2 mg/dL 0.1-0.5 code = 706) ALKALINE PHOSPHATASE (BEAKER) (test 99 U/L 40-150 code = 346) AST (SGOT) (BEAKER) (test code = 18 U/L 5-34 353) ALT (SGPT) (BEAKER) (test code = 22 U/L 6-55 347) BASIC METABOLIC [id number] 12:45:00 Test Item Value Reference Range Interpretation Comments SODIUM (BEAKER) 130 meq/L 136-145 L (test code = 381) POTASSIUM (BEAKER) 4.3 meq/L 3.5-5.1 (test code = 379) CHLORIDE (BEAKER) 97 meq/L 98-107 L (test code = 382) CO2 (BEAKER) (test 21 meq/L 22-29 L code = 355) BLOOD UREA NITROGEN 21 mg/dL 7-21 (BEAKER) (test code = 354) CREATININE (BEAKER) 1.19 mg/dL 0.57-1.25 (test code = 358) GLUCOSE RANDOM 139 mg/dL 70-105 H (BEAKER) (test code = 652) CALCIUM (BEAKER) 8.7 mg/dL 8.4-10.2 (test code = 697) EGFR (BEAKER) (test 61 mL/min/1.73 ESTIMA ROSIE GFR IS code = 1092) sq m NOT ACCURATE CREATININE CLEARANCE IN PREDICTING GLOMERULAR FILTRATION RATE . ESTIMATED GFR I S NOT APPLICABLE FOR DIALYSIS PATIEN TS. CBC (HEMOGRAM ONLY)[id number] 12:33:00 Test Item Value Reference Range Interpretation Comments WHITE BLOOD CELL COUNT (BEAKER) 12.2 K/ L 4.0-10.0 H (test code = 775) RED BLOOD CELL COUNT (BEAKER) 3.61 M/ L 4.20-5.80 L (test code = 761) HEMOGLOBIN (BEAKER) (test code = 10.9 GM/DL 13.0-16.8 L 410) HEMATOCRIT (BEAKER) (test code = 31.6 % 40.0-50.0 L 411) MEAN CORPUSCULAR VOLUME (BEAKER) 87.4 fL 82.0-98.0 (test code = 753) MEAN CORPUSCULAR HEMOGLOBIN 30.1 pg 27.0-33.0 (BEAKER) (test code = 751) MEAN CORPUSCULAR HEMOGLOBIN CONC 34.4 GM/DL 32.0-36.0 (BEAKER) (test code = 752) RED CELL DISTRIBUTION WIDTH 13.0 % 10.3-14.2 (BEAKER) (test code = 412) PLATELET COUNT (BEAKER) (test 131 K/CU MM 150-430 L code = 756) MEAN PLATELET VOLUME (BEAKER) 6.6 fL 6.5-10.5 (test code = 754) NUCLEATED RED BLOOD CELLS 0 /100 WBC 0-0 (BEAKER) (test code = 413) 0.00POCT-GLUCOSE [id number] 11:53:00 Test Item Value Reference Range Interpretation Comments POC-GLUCOSE METER 117 mg/dL 70-110 H TESTED AT [facility] 6720 (BEAKER) (test code = [place] 1535) [id number] CBC W/PLT COUNT & AUTO [id number] 07:10:00 Test Item Value Reference Range Interpretation Comments WHITE BLOOD CELL COUNT (BEAKER) 3.7 K/ L 4.0-10.0 L (test code = 775) RED BLOOD CELL COUNT (BEAKER) 3.87 M/ L 4.20-5.80 L (test code = 761) HEMOGLOBIN (BEAKER) (test code = 11.7 GM/DL 13.0-16.8 L 410) HEMATOCRIT (BEAKER) (test code = 34.6 % 40.0-50.0 L 411) MEAN CORPUSCULAR VOLUME (BEAKER) 89.6 fL 82.0-98.0 (test code = 753) MEAN CORPUSCULAR HEMOGLOBIN 30.4 pg 27.0-33.0 (BEAKER) (test code = 751) MEAN CORPUSCULAR HEMOGLOBIN CONC 33.9 GM/DL 32.0-36.0 (BEAKER) (test code = 752) RED CELL DISTRIBUTION WIDTH 12.0 % 10.3-14.2 (BEAKER) (test code = 412) PLATELET COUNT (BEAKER) (test 158 K/CU MM 150-430 code = 756) MEAN PLATELET VOLUME (BEAKER) 6.6 fL 6.5-10.5 (test code = 754) NUCLEATED RED BLOOD CELLS 0 /100 WBC 0-0 (BEAKER) (test code = 413) NEUTROPHILS RELATIVE PERCENT 65 % (BEAKER) (test code = 429) LYMPHOCYTES RELATIVE PERCENT 18 % (BEAKER) (test code = 430) MONOCYTES RELATIVE PERCENT 11 % (BEAKER) (test code = 431) EOSINOPHILS RELATIVE PERCENT 6 % (BEAKER) (test code = 432) BASOPHILS RELATIVE PERCENT 0 % (BEAKER) (test code = 437) NEUTROPHILS ABSOLUTE COUNT 2.40 K/ L 1.80-8.00 (BEAKER) (test code = 670) LYMPHOCYTES ABSOLUTE COUNT 0.68 K/ L 1.48-4.50 L (BEAKER) (test code = 414) MONOCYTES ABSOLUTE COUNT (BEAKER) 0.40 K/ L 0.00-1.30 (test code = 415) EOSINOPHILS ABSOLUTE COUNT 0.23 K/ L 0.00-0.50 (BEAKER) (test code = 416) BASOPHILS ABSOLUTE COUNT (BEAKER) 0.01 K/ L 0.00-0.20 (test code = 417) [id number] 15:06:00 Test Item Value Reference Range Interpretation Comments PROTIME (BEAKER) (test code = 14.8 seconds 11.7-14.7 H 759) INR (BEAKER) (test code = 370) 1.2 <=5.9 PARTIAL THROMBOPLASTIN TIME 29.1 seconds 22.5-36.0 (BEAKER) (test code = 760) RECOMMENDED COUMADIN/WARFARIN INR THERAPY RANGESSTANDARD DOSE: 2.0 - 3.0 Includes: PROPHYLAXIS forvenous thrombosis, systemic embolization; TREATMENT for venous thrombosis and/or pulmonary embolus.HIGH RISK: Target INR is 2.5-3.5 for patients with mechanical heart valves.POCT-GLUCOSE [id number] 12:02:00 Test Item Value Reference Range Interpretation Comments POC-GLUCOSE METER 137 mg/dL 70-110 H TESTED AT [facility] 6720 (BEAKER) (test code = [place] 1538) [address] BASIC METABOLIC [id number] 05:46:00 Test Item Value Reference Range Interpretation Comments SODIUM (BEAKER) 134 meq/L 136-145 L (test code = 381) POTASSIUM (BEAKER) 3.9 meq/L 3.5-5.1 (test code = 379) CHLORIDE (BEAKER) 101 meq/L 98-107 (test code = 382) CO2 (BEAKER) (test 25 meq/L 22-29 code = 355) BLOOD UREA NITROGEN 10 mg/dL 7-21 (BEAKER) (test code = 354) CREATININE (BEAKER) 0.82 mg/dL 0.57-1.25 (test code = 358) GLUCOSE RANDOM 102 mg/dL 70-105 (BEAKER) (test code = 652) CALCIUM (BEAKER) 8.6 mg/dL 8.4-10.2 (test code = 697) EGFR (BEAKER) (test 93 mL/min/1.73 ESTIMA ROSIE GFR IS code = 1092) sq m NOT ACCURATE CREATININE CLEARANCE IN PREDICTING GLOMERULAR FILTRATION RATE . ESTIMATED GFR I S NOT APPLICABLE FOR DIALYSIS PATIEN TS. CBC W/PLT COUNT & AUTO [id number] 05:44:00 Test Item Value Reference Range Interpretation Comments WHITE BLOOD CELL COUNT (BEAKER) 3.9 K/ L 4.0-10.0 L (test code = 775) RED BLOOD CELL COUNT (BEAKER) 3.89 M/ L 4.20-5.80 L (test code = 761) HEMOGLOBIN (BEAKER) (test code = 11.8 GM/DL 13.0-16.8 L 410) HEMATOCRIT (BEAKER) (test code = 35.0 % 40.0-50.0 L 411) MEAN CORPUSCULAR VOLUME (BEAKER) 90.0 fL 82.0-98.0 (test code = 753) MEAN CORPUSCULAR HEMOGLOBIN 30.4 pg 27.0-33.0 (BEAKER) (test code = 751) MEAN CORPUSCULAR HEMOGLOBIN CONC 33.8 GM/DL 32.0-36.0 (BEAKER) (test code = 752) RED CELL DISTRIBUTION WIDTH 11.9 % 10.3-14.2 (BEAKER) (test code = 412) PLATELET COUNT (BEAKER) (test 160 K/CU MM 150-430 code = 756) MEAN PLATELET VOLUME (BEAKER) 6.3 fL 6.5-10.5 L (test code = 754) NUCLEATED RED BLOOD CELLS 0 /100 WBC 0-0 (BEAKER) (test code = 413) NEUTROPHILS RELATIVE PERCENT 68 % (BEAKER) (test code = 429) LYMPHOCYTES RELATIVE PERCENT 14 % (BEAKER) (test code = 430) MONOCYTES RELATIVE PERCENT 11 % (BEAKER) (test code = 431) EOSINOPHILS RELATIVE PERCENT 8 % (BEAKER) (test code = 432) BASOPHILS RELATIVE PERCENT 0 % (BEAKER) (test code = 437) NEUTROPHILS ABSOLUTE COUNT 2.66 K/ L 1.80-8.00 (BEAKER) (test code = 670) LYMPHOCYTES ABSOLUTE COUNT 0.54 K/ L 1.48-4.50 L (BEAKER) (test code = 414) MONOCYTES ABSOLUTE COUNT (BEAKER) 0.42 K/ L 0.00-1.30 (test code = 415) EOSINOPHILS ABSOLUTE COUNT 0.31 K/ L 0.00-0.50 (BEAKER) (test code = 416) BASOPHILS ABSOLUTE COUNT (BEAKER) 0.01 K/ L 0.00-0.20 (test code = 417) 0.00POCT-GLUCOSE [id number] 01:09:00 Test Item Value Reference Range Interpretation Comments POC-GLUCOSE METER 105 mg/dL 70-110 TESTED AT [place] [address] [facility] (test code = [place] 1538) [id number] POCT-GLUCOSE [id number] 17:33:00 Test Item Value Reference Range Interpretation Comments POC-GLUCOSE METER 123 mg/dL 70-110 H TESTED AT [place] [address] (BEAKER) (test code = JOSE Samuels [facility] 1538) [address] POCT-GLUCOSE [id number] 12:08:00 Test Item Value Reference Range Interpretation Comments POC-GLUCOSE METER 104 mg/dL 70-110 TESTED AT [place] [id number] (BEAKER) (test code = JOSE Samuels [facility] 1538) [address] POCT-GLUCOSE [id number] 06:26:00 Test Item Value Reference Range Interpretation Comments POC-GLUCOSE METER 139 mg/dL 70-110 H TESTED AT [place] [address] (BEAKER) (test code = [facility] Arvind [facility] 1538) [address] BASIC METABOLIC [id number] 04:04:00 Test Item Value Reference Range Interpretation Comments SODIUM (BEAKER) 137 meq/L 136-145 (test code = 381) POTASSIUM (BEAKER) 3.8 meq/L 3.5-5.1 (test code = 379) CHLORIDE (BEAKER) 104 meq/L 98-107 (test code = 382) CO2 (BEAKER) (test 25 meq/L 22-29 code = 355) BLOOD UREA NITROGEN 15 mg/dL 7-21 (BEAKER) (test code = 354) CREATININE (BEAKER) 0.83 mg/dL 0.57-1.25 (test code = 358) GLUCOSE RANDOM 114 mg/dL 70-105 H (BEAKER) (test code = 652) CALCIUM (BEAKER) 8.5 mg/dL 8.4-10.2 (test code = 697) EGFR (BEAKER) (test 92 mL/min/1.73 ESTIMA ROSIE GFR IS code = 1092) sq m NOT ACCURATE CREATININE CLEARANCE IN PREDICTING GLOMERULAR FILTRATION RATE . ESTIMATED GFR I S NOT APPLICABLE FOR DIALYSIS PATIEN TS. CBC W/PLT COUNT & AUTO [id number] 03:54:00 Test Item Value Reference Range Interpretation Comments WHITE BLOOD CELL COUNT (BEAKER) 4.4 K/ L 4.0-10.0 (test code = 775) RED BLOOD CELL COUNT (BEAKER) 3.67 M/ L 4.20-5.80 L (test code = 761) HEMOGLOBIN (BEAKER) (test code = 11.2 GM/DL 13.0-16.8 L 410) HEMATOCRIT (BEAKER) (test code = 32.9 % 40.0-50.0 L 411) MEAN CORPUSCULAR VOLUME (BEAKER) 89.8 fL 82.0-98.0 (test code = 753) MEAN CORPUSCULAR HEMOGLOBIN 30.4 pg 27.0-33.0 (BEAKER) (test code = 751) MEAN CORPUSCULAR HEMOGLOBIN CONC 33.9 GM/DL 32.0-36.0 (BEAKER) (test code = 752) RED CELL DISTRIBUTION WIDTH 12.0 % 10.3-14.2 (BEAKER) (test code = 412) PLATELET COUNT (BEAKER) (test 162 K/CU MM 150-430 code = 756) MEAN PLATELET VOLUME (BEAKER) 6.1 fL 6.5-10.5 L (test code = 754) NUCLEATED RED BLOOD CELLS 0 /100 WBC 0-0 (BEAKER) (test code = 413) NEUTROPHILS RELATIVE PERCENT 68 % (BEAKER) (test code = 429) LYMPHOCYTES RELATIVE PERCENT 14 % (BEAKER) (test code = 430) MONOCYTES RELATIVE PERCENT 11 % (BEAKER) (test code = 431) EOSINOPHILS RELATIVE PERCENT 8 % (BEAKER) (test code = 432) BASOPHILS RELATIVE PERCENT 0 % (BEAKER) (test code = 437) NEUTROPHILS ABSOLUTE COUNT 2.96 K/ L 1.80-8.00 (BEAKER) (test code = 670) LYMPHOCYTES ABSOLUTE COUNT 0.59 K/ L 1.48-4.50 L (BEAKER) (test code = 414) MONOCYTES ABSOLUTE COUNT (BEAKER) 0.47 K/ L 0.00-1.30 (test code = 415) EOSINOPHILS ABSOLUTE COUNT 0.33 K/ L 0.00-0.50 (BEAKER) (test code = 416) BASOPHILS ABSOLUTE COUNT (BEAKER) 0.02 K/ L 0.00-0.20 (test code = 417) 0.00POCT-GLUCOSE [id number] 00:30:00 Test Item Value Reference Range Interpretation Comments POC-GLUCOSE METER 106 mg/dL 70-110 TESTED AT [place] [address] ([facility] (test code = [place] 1538) [address] POCT-GLUCOSE [id number] 17:47:00 Test Item Value Reference Range Interpretation Comments POC-GLUCOSE METER 158 mg/dL 70-110 H TESTED AT [facility] 6720 (BEAKER) (test code = [place] 1538) [address] POCT-GLUCOSE [id number] 12:41:00 Test Item Value Reference Range Interpretation Comments POC-GLUCOSE METER 184 mg/dL 70-110 H TESTED AT [facility] 6720 (BEAKER) (test code = [place] 1538) [address] BASIC METABOLIC [id number] 07:20:00 Test Item Value Reference Range Interpretation Comments SODIUM (BEAKER) 132 meq/L 136-145 L (test code = 381) POTASSIUM (BEAKER) 3.8 meq/L 3.5-5.1 (test code = 379) CHLORIDE (BEAKER) 103 meq/L 98-107 (test code = 382) CO2 (BEAKER) (test 21 meq/L 22-29 L code = 355) BLOOD UREA NITROGEN 10 mg/dL 7-21 (BEAKER) (test code = 354) CREATININE (BEAKER) 0.76 mg/dL 0.57-1.25 (test code = 358) GLUCOSE RANDOM 105 mg/dL 70-105 (BEAKER) (test code = 652) CALCIUM (BEAKER) 8.4 mg/dL 8.4-10.2 (test code = 697) EGFR (BEAKER) (test 102 mL/min/1.73 ESTIM ATED GFR IS code = 1092) sq m NOT ACCURATE CREATININE CLEARANCE IN PREDICTING GLOMERULAR FILTRATION RATE . ESTIMATED GFR I S NOT APPLICABLE FOR DIALYSIS PATIEN TS. CBC W/PLT COUNT & AUTO [id number] 06:56:00 Test Item Value Reference Range Interpretation Comments WHITE BLOOD CELL COUNT (BEAKER) 3.9 K/ L 4.0-10.0 L (test code = 775) RED BLOOD CELL COUNT (BEAKER) 3.68 M/ L 4.20-5.80 L (test code = 761) HEMOGLOBIN (BEAKER) (test code = 11.0 GM/DL 13.0-16.8 L 410) HEMATOCRIT (BEAKER) (test code = 32.7 % 40.0-50.0 L 411) MEAN CORPUSCULAR VOLUME (BEAKER) 88.9 fL 82.0-98.0 (test code = 753) MEAN CORPUSCULAR HEMOGLOBIN 29.9 pg 27.0-33.0 (BEAKER) (test code = 751) MEAN CORPUSCULAR HEMOGLOBIN CONC 33.6 GM/DL 32.0-36.0 (BEAKER) (test code = 752) RED CELL DISTRIBUTION WIDTH 11.7 % 10.3-14.2 (BEAKER) (test code = 412) PLATELET COUNT (BEAKER) (test 188 K/CU MM 150-430 code = 756) MEAN PLATELET VOLUME (BEAKER) 6.3 fL 6.5-10.5 L (test code = 754) NUCLEATED RED BLOOD CELLS 0 /100 WBC 0-0 (BEAKER) (test code = 413) NEUTROPHILS RELATIVE PERCENT 68 % (BEAKER) (test code = 429) LYMPHOCYTES RELATIVE PERCENT 13 % (BEAKER) (test code = 430) MONOCYTES RELATIVE PERCENT 11 % (BEAKER) (test code = 431) EOSINOPHILS RELATIVE PERCENT 8 % (BEAKER) (test code = 432) BASOPHILS RELATIVE PERCENT 0 % (BEAKER) (test code = 437) NEUTROPHILS ABSOLUTE COUNT 2.64 K/ L 1.80-8.00 (BEAKER) (test code = 670) LYMPHOCYTES ABSOLUTE COUNT 0.52 K/ L 1.48-4.50 L (BEAKER) (test code = 414) MONOCYTES ABSOLUTE COUNT (BEAKER) 0.42 K/ L 0.00-1.30 (test code = 415) EOSINOPHILS ABSOLUTE COUNT 0.31 K/ L 0.00-0.50 (BEAKER) (test code = 416) BASOPHILS ABSOLUTE COUNT (BEAKER) 0.02 K/ L 0.00-0.20 (test code = 417) 0.00POCT-GLUCOSE [id number] 06:28:00 Test Item Value Reference Range Interpretation Comments POC-GLUCOSE METER 130 mg/dL 70-110 H TESTED AT [facility] 67 [facility] (test code = [place] 1538) [address] POCT-GLUCOSE [id number] 00:19:00 Test Item Value Reference Range Interpretation Comments POC-GLUCOSE METER 124 mg/dL 70-110 H TESTED AT [facility] 6720 ([facility] (test code = [place] 1538) [address] POCT-GLUCOSE [id number] 18:43:00 Test Item Value Reference Range Interpretation Comments POC-GLUCOSE METER 92 mg/dL 70-110 TESTED AT [facility] 6720 (BEAKER) (test code = [place] [address] 1538) POCT-GLUCOSE [id number] 12:34:00 Test Item Value Reference Range Interpretation Comments POC-GLUCOSE METER 176 mg/dL 70-110 H TESTED AT [facility] 6720 (BEAKER) (test code = [place] 1538) [id number] CBC W/PLT COUNT & AUTO [id number] 09:33:00 Test Item Value Reference Range Interpretation Comments WHITE BLOOD CELL COUNT (BEAKER) 4.3 K/ L 4.0-10.0 (test code = 775) RED BLOOD CELL COUNT (BEAKER) 3.67 M/ L 4.20-5.80 L (test code = 761) HEMOGLOBIN (BEAKER) (test code = 11.2 GM/DL 13.0-16.8 L 410) HEMATOCRIT (BEAKER) (test code = 32.8 % 40.0-50.0 L 411) MEAN CORPUSCULAR VOLUME (BEAKER) 89.4 fL 82.0-98.0 (test code = 753) MEAN CORPUSCULAR HEMOGLOBIN 30.5 pg 27.0-33.0 (BEAKER) (test code = 751) MEAN CORPUSCULAR HEMOGLOBIN CONC 34.1 GM/DL 32.0-36.0 (BEAKER) (test code = 752) RED CELL DISTRIBUTION WIDTH 11.7 % 10.3-14.2 (BEAKER) (test code = 412) PLATELET COUNT (BEAKER) (test 199 K/CU MM 150-430 code = 756) MEAN PLATELET VOLUME (BEAKER) 6.2 fL 6.5-10.5 L (test code = 754) NUCLEATED RED BLOOD CELLS 0 /100 WBC 0-0 (BEAKER) (test code = 413) NEUTROPHILS RELATIVE PERCENT 77 % (BEAKER) (test code = 429) LYMPHOCYTES RELATIVE PERCENT 10 % (BEAKER) (test code = 430) MONOCYTES RELATIVE PERCENT 9 % (BEAKER) (test code = 431) EOSINOPHILS RELATIVE PERCENT 3 % (BEAKER) (test code = 432) BASOPHILS RELATIVE PERCENT 0 % (BEAKER) (test code = 437) NEUTROPHILS ABSOLUTE COUNT 3.34 K/ L 1.80-8.00 (BEAKER) (test code = 670) LYMPHOCYTES ABSOLUTE COUNT 0.43 K/ L 1.48-4.50 L (BEAKER) (test code = 414) MONOCYTES ABSOLUTE COUNT (BEAKER) 0.40 K/ L 0.00-1.30 (test code = 415) EOSINOPHILS ABSOLUTE COUNT 0.14 K/ L 0.00-0.50 (BEAKER) (test code = 416) BASOPHILS ABSOLUTE COUNT (BEAKER) 0.02 K/ L 0.00-0.20 (test code = 417) 0.00COMPREHENSIVE METABOLIC [id number] 08:56:00 Test Item Value Reference Range Interpretation Comments TOTAL PROTEIN 6.4 gm/dL 6.0-8.3 Specimen sligh tly (BEAKER) (test code = hemoly zed 770) ALBUMIN (BEAKER) 3.3 g/dL 3.5-5.0 L Specimen sl ightly (test code = 1145) hemolyzed ALKALINE PHOSPHATASE 61 U/L 40-150 (BEAKER) (test code = 346) BILIRUBIN TOTAL 0.5 mg/dL 0.2-1.2 Specimen sli ghtly (BEAKER) (test code = hemoly zed 377) SODIUM (BEAKER) (test 135 meq/L 136-145 L code = 381) POTASSIUM (BEAKER) 4.6 meq/L 3.5-5.1 Specimen slightly (test code = 379) hemolyzed CHLORIDE (BEAKER) 106 meq/L 98-107 (test code = 382) CO2 (BEAKER) (test 17 meq/L 22-29 L code = 355) BLOOD UREA NITROGEN 10 mg/dL 7-21 (BEAKER) (test code = 354) CREATININE (BEAKER) 0.80 mg/dL 0.57-1.25 Specimen slightly (test code = 358) hemolyzed GLUCOSE RANDOM 97 mg/dL 70-105 (BEAKER) (test code = 652) CALCIUM (BEAKER) 8.6 mg/dL 8.4-10.2 (test code = 697) AST (SGOT) (BEAKER) 37 U/L 5-34 H Specimen slightly (test code = 353) hemolyzed ALT (SGPT) (BEAKER) 20 U/L 6-55 Specimen slightly (test code = 347) hemolyzed EGFR (BEAKER) (test 96 mL/min/1.73 ESTIMA ROSIE GFR IS code = 1092) sq m NOT ACCURATE CREATININE CLEARANCE IN PREDICTING GLOMERULAR FILTRATION RATE . ESTIMATED GFR I S NOT APPLICABLE FOR DIALYSIS PATIEN TS. POCT-GLUCOSE [id number] 05:58:00 Test Item Value Reference Range Interpretation Comments POC-GLUCOSE METER 96 mg/dL 70-110 TESTED AT [facility] 6720 (BEAKER) (test code = [facility] [address] 1538) POCT-GLUCOSE [id number] 00:23:00 Test Item Value Reference Range Interpretation Comments POC-GLUCOSE METER 110 mg/dL 70-110 TESTED AT [place] [address] ([facility] (test code = [facility] 1538) [id number] POCT-GLUCOSE [id number] 17:48:00 Test Item Value Reference Range Interpretation Comments POC-GLUCOSE METER 100 mg/dL 70-110 TESTED AT [place] [address] ([facility] (test code = [facility] 1538) [address] POCT-GLUCOSE [id number] 12:09:00 Test Item Value Reference Range Interpretation Comments POC-GLUCOSE METER 103 mg/dL 70-110 TESTED AT [place] [address] (BEAKER) (test code = [facility] 1538) [address] URINE [id number] 08:43:00 Test Item Value Reference Range Interpretation Comments CULTURE (BEAKER) (test code = 1095) No growth BASIC METABOLIC [id number] 06:59:00 Test Item Value Reference Range Interpretation Comments SODIUM (BEAKER) 139 meq/L 136-145 (test code = 381) POTASSIUM (BEAKER) 4.0 meq/L 3.5-5.1 (test code = 379) CHLORIDE (BEAKER) 107 meq/L 98-107 (test code = 382) CO2 (BEAKER) (test 23 meq/L 22-29 code = 355) BLOOD UREA NITROGEN 9 mg/dL 7-21 (BEAKER) (test code = 354) CREATININE (BEAKER) 0.79 mg/dL 0.57-1.25 (test code = 358) GLUCOSE RANDOM 111 mg/dL 70-105 H (BEAKER) (test code = 652) CALCIUM (BEAKER) 8.6 mg/dL 8.4-10.2 (test code = 697) EGFR (BEAKER) (test 97 mL/min/1.73 ESTIMA ROSIE GFR IS code = 1092) sq m NOT ACCURATE CREATININE CLEARANCE IN PREDICTING GLOMERULAR FILTRATION RATE . ESTIMATED GFR I S NOT APPLICABLE FOR DIALYSIS PATIEN TS. POCT-GLUCOSE [id number] 06:02:00 Test Item Value Reference Range Interpretation Comments POC-GLUCOSE METER 102 mg/dL 70-110 TESTED AT [facility] 6720 (BEAKER) (test code = [place] 1538) [id number] PHENYTOIN LEVEL, [id number] 05:51:00 Test Item Value Reference Range Interpretation Comments PHENYTOIN (DILANTIN) (BEAKER) (test 7.3 ug/mL 10.0-20.0 L code = 605) CBC W/PLT COUNT & AUTO [id number] 05:41:00 Test Item Value Reference Range Interpretation Comments WHITE BLOOD CELL COUNT (BEAKER) 4.9 K/ L 4.0-10.0 (test code = 775) RED BLOOD CELL COUNT (BEAKER) 3.61 M/ L 4.20-5.80 L (test code = 761) HEMOGLOBIN (BEAKER) (test code = 11.5 GM/DL 13.0-16.8 L 410) HEMATOCRIT (BEAKER) (test code = 31.7 % 40.0-50.0 L 411) MEAN CORPUSCULAR VOLUME (BEAKER) 87.9 fL 82.0-98.0 (test code = 753) MEAN CORPUSCULAR HEMOGLOBIN 31.8 pg 27.0-33.0 (BEAKER) (test code = 751) MEAN CORPUSCULAR HEMOGLOBIN CONC 36.2 GM/DL 32.0-36.0 H (BEAKER) (test code = 752) RED CELL DISTRIBUTION WIDTH 13.1 % 10.3-14.2 (BEAKER) (test code = 412) PLATELET COUNT (BEAKER) (test 200 K/CU MM 150-430 code = 756) MEAN PLATELET VOLUME (BEAKER) 6.7 fL 6.5-10.5 (test code = 754) NUCLEATED RED BLOOD CELLS 0 /100 WBC 0-0 (BEAKER) (test code = 413) NEUTROPHILS RELATIVE PERCENT 75 % (BEAKER) (test code = 429) LYMPHOCYTES RELATIVE PERCENT 10 % (BEAKER) (test code = 430) MONOCYTES RELATIVE PERCENT 10 % (BEAKER) (test code = 431) EOSINOPHILS RELATIVE PERCENT 5 % (BEAKER) (test code = 432) BASOPHILS RELATIVE PERCENT 0 % (BEAKER) (test code = 437) NEUTROPHILS ABSOLUTE COUNT 3.69 K/ L 1.80-8.00 (BEAKER) (test code = 670) LYMPHOCYTES ABSOLUTE COUNT 0.52 K/ L 1.48-4.50 L (BEAKER) (test code = 414) MONOCYTES ABSOLUTE COUNT (BEAKER) 0.50 K/ L 0.00-1.30 (test code = 415) EOSINOPHILS ABSOLUTE COUNT 0.23 K/ L 0.00-0.50 (BEAKER) (test code = 416) BASOPHILS ABSOLUTE COUNT (BEAKER) 0.01 K/ L 0.00-0.20 (test code = 417) 0.00POCT-GLUCOSE [id number] 03:20:00 Test Item Value Reference Range Interpretation Comments POC-GLUCOSE METER 121 mg/dL 70-110 H TESTED AT [place] [address] ([facility]) (test code = [facility] 1538) [id number] POCT-GLUCOSE [id number] 18:47:00 Test Item Value Reference Range Interpretation Comments POC-GLUCOSE METER 116 mg/dL 70-110 H TESTED AT [place] [address] ([facility]) (test code = [facility] 1538) [address] PLATELET AGGREGATION: FUNCTION [id number] 13:09:00 Test Item Value Reference Range Interpretation Comments WEAK ADP 100 % 60-91 H RESULT([facility]) (test code = 2135) PLATELET FUNCTION 60-100% indicates SCREEN INTERP ([facility]) normal platelet (test code = 2173) function [id number] Justin Goel MD ([facility]) (test code = (electronic signature) 9801) PLATELET COUNT AGG 181 K/CU MM 150-430 ([facility]) (test code = 6166) PHENYTOIN LEVEL, [id number] 13:01:00 Test Item Value Reference Range Interpretation Comments PHENYTOIN (DILANTIN) ([facility]) (test 8.6 ug/mL 10.0-20.0 L code = 605) POCT-GLUCOSE [id number] 12:17:00 Test Item Value Reference Range Interpretation Comments POC-GLUCOSE METER 103 mg/dL 70-110 TESTED AT [facility] 6720 (BEAKER) (test code = [facility] [place] 1538) [address] POCT-GLUCOSE [id number] 06:29:00 Test Item Value Reference Range Interpretation Comments POC-GLUCOSE METER 93 mg/dL 70-110 TESTED AT [facility] 6720 (BEAKER) (test code = [place] [address] 1538) [id number] 05:36:00 Test Item Value Reference Range Interpretation Comments MAGNESIUM (BEAKER) (test code = 1.7 mg/dL 1.6-2.6 627) BASIC METABOLIC [id number] 05:36:00 Test Item Value Reference Range Interpretation Comments SODIUM (BEAKER) 136 meq/L 136-145 (test code = 381) POTASSIUM (BEAKER) 3.9 meq/L 3.5-5.1 (test code = 379) CHLORIDE (BEAKER) 105 meq/L 98-107 (test code = 382) CO2 (BEAKER) (test 18 meq/L 22-29 L code = 355) BLOOD UREA NITROGEN 11 mg/dL 7-21 (BEAKER) (test code = 354) CREATININE (BEAKER) 0.80 mg/dL 0.57-1.25 (test code = 358) GLUCOSE RANDOM 87 mg/dL 70-105 (BEAKER) (test code = 652) CALCIUM (BEAKER) 8.7 mg/dL 8.4-10.2 (test code = 697) EGFR (BEAKER) (test 96 mL/min/1.73 ESTIMA ROSIE GFR IS code = 1092) sq m NOT ACCURATE CREATININE CLEARANCE IN PREDICTING GLOMERULAR FILTRATION RATE . ESTIMATED GFR I S NOT APPLICABLE FOR DIALYSIS PATIEN TS. CBC W/PLT COUNT & AUTO [id number] 05:22:00 Test Item Value Reference Range Interpretation Comments WHITE BLOOD CELL COUNT (BEAKER) 5.3 K/ L 4.0-10.0 (test code = 775) RED BLOOD CELL COUNT (BEAKER) 3.69 M/ L 4.20-5.80 L (test code = 761) HEMOGLOBIN (BEAKER) (test code = 11.6 GM/DL 13.0-16.8 L 410) HEMATOCRIT (BEAKER) (test code = 33.4 % 40.0-50.0 L 411) MEAN CORPUSCULAR VOLUME (BEAKER) 90.6 fL 82.0-98.0 (test code = 753) MEAN CORPUSCULAR HEMOGLOBIN 31.4 pg 27.0-33.0 (BEAKER) (test code = 751) MEAN CORPUSCULAR HEMOGLOBIN CONC 34.6 GM/DL 32.0-36.0 (BEAKER) (test code = 752) RED CELL DISTRIBUTION WIDTH 11.9 % 10.3-14.2 (BEAKER) (test code = 412) PLATELET COUNT (BEAKER) (test 164 K/CU MM 150-430 code = 756) MEAN PLATELET VOLUME (BEAKER) 7.3 fL 6.5-10.5 (test code = 754) NUCLEATED RED BLOOD CELLS 0 /100 WBC 0-0 (BEAKER) (test code = 413) NEUTROPHILS RELATIVE PERCENT 76 % (BEAKER) (test code = 429) LYMPHOCYTES RELATIVE PERCENT 11 % (BEAKER) (test code = 430) MONOCYTES RELATIVE PERCENT 9 % (BEAKER) (test code = 431) EOSINOPHILS RELATIVE PERCENT 5 % (BEAKER) (test code = 432) BASOPHILS RELATIVE PERCENT 0 % (BEAKER) (test code = 437) NEUTROPHILS ABSOLUTE COUNT 4.02 K/ L 1.80-8.00 (BEAKER) (test code = 670) LYMPHOCYTES ABSOLUTE COUNT 0.57 K/ L 1.48-4.50 L (BEAKER) (test code = 414) MONOCYTES ABSOLUTE COUNT (BEAKER) 0.48 K/ L 0.00-1.30 (test code = 415) EOSINOPHILS ABSOLUTE COUNT 0.24 K/ L 0.00-0.50 (BEAKER) (test code = 416) BASOPHILS ABSOLUTE COUNT (BEAKER) 0.01 K/ L 0.00-0.20 (test code = 417) 0.00POCT-GLUCOSE [id number] 00:30:00 Test Item Value Reference Range Interpretation Comments POC-GLUCOSE METER 97 mg/dL 70-110 TESTED AT [place] [address] ([facility]) (test code = [place] [address] 1538) POCT-GLUCOSE [id number] 18:12:00 Test Item Value Reference Range Interpretation Comments POC-GLUCOSE METER 97 mg/dL 70-110 TESTED AT [place] [address] ([facility]) (test code = JOSE Samuels [facility] [address] 1538) PLATELET AGGREGATION: FUNCTION [id number] 13:04:00 Test Item Value Reference Range Interpretation Comments WEAK ADP 100 % 60-91 H RESULT([facility]) (test code = 2135) PLATELET FUNCTION 60-100% indicates SCREEN INTERP ([facility]) normal platelet (test code = 2173) function [id number] Justin Goel MD ([facility]) (test code = (electronic signature) 2273) PLATELET COUNT AGG 142 K/CU MM 150-430 L ([facility]) (test code = 2656) POCT-GLUCOSE [id number] 12:12:00 Test Item Value Reference Range Interpretation Comments POC-GLUCOSE METER 98 mg/dL 70-110 TESTED AT [place] [address] ([facility]) (test code = [facility] Arvind [facility] [address] 1538) [id number] 10:53:00 Test Item Value Reference Range Interpretation Comments D-DIMER QUANTITATIVE ([facility]) 2.83 MG/L FEU <0.50 H (test code = 671) Intended Use: The D-Dimer Assay can be used to aid in the diagnosis of Deep Vein Thrombosis (DVT) and Pulmonary Embolism Disease (PED).In patients with low pre- test probability, various studies concerning STA Liatest D-dimer test have reported that with a cutoff value of 0.50 MG/L FEU, the Negative Predictive Value (NPV) regarding the exclusion of thrombosis is within 95-100% range. THROMBIN [id number] 10:51:00 Test Item Value Reference Range Interpretation Comments THROMBIN TIME (BEAKER) (test code = 15.0 secs 13.8-20.0 550) [id number] 10:50:00 Test Item Value Reference Range Interpretation Comments FIBRINOGEN LEVEL (BEAKER) (test 462 mg/dl 225-434 H code = 658) URINALYSIS W/ [id number] 09:54:00 Test Item Value Reference Range Interpretation Comments COLOR (BEAKER) (test code = 470) Yellow CLARITY (BEAKER) (test code = Cloudy 469) SPECIFIC GRAVITY UA (BEAKER) 1.017 1.001-1.035 (test code = 468) PH UA (BEAKER) (test code = 467) 5.0 5.0-8.0 PROTEIN UA (BEAKER) (test code = 20 mg/dL Negative A 464) GLUCOSE UA (BEAKER) (test code = Negative Negative 365) KETONES UA (BEAKER) (test code = 60 mg/dL Negative A 371) BILIRUBIN UA (BEAKER) (test code Negative Negative = 462) BLOOD UA (BEAKER) (test code = Small Negative A 461) NITRITE UA (BEAKER) (test code = Negative Negative 465) LEUKOCYTE ESTERASE UA (BEAKER) Large Negative A (test code = 466) UROBILINOGEN UA (BEAKER) (test 0.2 mg/dL 0.2-1.0 code = 463) RBC UA (BEAKER) (test code = 5 /HPF 519) WBC UA (BEAKER) (test code = 55 /HPF 520) BACTERIA (BEAKER) (test code = Moderate 517) MUCUS (BEAKER) (test code = Occasional 1574) SQUAMOUS EPITHELIAL (BEAKER) < /HPF (test code = 516) HYALINE CASTS (BEAKER) (test 1 /LPF code = 514) URIC ACID CRYSTALS (BEAKER) Occasional (test code = 1583) SOURCE(BEAKER) (test code = Urine, [place] 3747) CBC W/PLT COUNT & AUTO [id number] 09:17:00 Test Item Value Reference Range Interpretation Comments WHITE BLOOD CELL COUNT (BEAKER) 6.3 K/ L 4.0-10.0 (test code = 775) RED BLOOD CELL COUNT (BEAKER) 3.63 M/ L 4.20-5.80 L (test code = 761) HEMOGLOBIN (BEAKER) (test code = 11.3 GM/DL 13.0-16.8 L 410) HEMATOCRIT (BEAKER) (test code = 32.9 % 40.0-50.0 L 411) MEAN CORPUSCULAR VOLUME (BEAKER) 90.6 fL 82.0-98.0 (test code = 753) MEAN CORPUSCULAR HEMOGLOBIN 31.0 pg 27.0-33.0 (BEAKER) (test code = 751) MEAN CORPUSCULAR HEMOGLOBIN CONC 34.3 GM/DL 32.0-36.0 (BEAKER) (test code = 752) RED CELL DISTRIBUTION WIDTH 12.0 % 10.3-14.2 (BEAKER) (test code = 412) PLATELET COUNT (BEAKER) (test 133 K/CU MM 150-430 L code = 756) MEAN PLATELET VOLUME (BEAKER) 7.2 fL 6.5-10.5 (test code = 754) NUCLEATED RED BLOOD CELLS 0 /100 WBC 0-0 (BEAKER) (test code = 413) NEUTROPHILS RELATIVE PERCENT 76 % (BEAKER) (test code = 429) LYMPHOCYTES RELATIVE PERCENT 9 % (BEAKER) (test code = 430) MONOCYTES RELATIVE PERCENT 10 % (BEAKER) (test code = 431) EOSINOPHILS RELATIVE PERCENT 4 % (BEAKER) (test code = 432) BASOPHILS RELATIVE PERCENT 1 % (BEAKER) (test code = 437) NEUTROPHILS ABSOLUTE COUNT 4.78 K/ L 1.80-8.00 (BEAKER) (test code = 670) LYMPHOCYTES ABSOLUTE COUNT 0.58 K/ L 1.48-4.50 L (BEAKER) (test code = 414) MONOCYTES ABSOLUTE COUNT (BEAKER) 0.60 K/ L 0.00-1.30 (test code = 415) EOSINOPHILS ABSOLUTE COUNT 0.26 K/ L 0.00-0.50 (BEAKER) (test code = 416) BASOPHILS ABSOLUTE COUNT (BEAKER) 0.04 K/ L 0.00-0.20 (test code = 417) 0.00PHENYTOIN LEVEL, [id number] 05:46:00 Test Item Value Reference Range Interpretation Comments PHENYTOIN (DILANTIN) (BEAKER) (test 1.1 ug/mL 10.0-20.0 L code = 605) BASIC METABOLIC [id number] 05:39:00 Test Item Value Reference Range Interpretation Comments SODIUM (BEAKER) 134 meq/L 136-145 L (test code = 381) POTASSIUM (BEAKER) 3.8 meq/L 3.5-5.1 (test code = 379) CHLORIDE (BEAKER) 105 meq/L 98-107 (test code = 382) CO2 (BEAKER) (test 20 meq/L 22-29 L code = 355) BLOOD UREA NITROGEN 11 mg/dL 7-21 (BEAKER) (test code = 354) CREATININE (BEAKER) 0.74 mg/dL 0.57-1.25 (test code = 358) GLUCOSE RANDOM 98 mg/dL 70-105 (BEAKER) (test code = 652) CALCIUM (BEAKER) 8.5 mg/dL 8.4-10.2 (test code = 697) EGFR (BEAKER) (test 105 mL/min/1.73 ESTIM ATED GFR IS code = 1092) sq m NOT ACCURATE CREATININE CLEARANCE IN PREDICTING GLOMERULAR FILTRATION RATE . ESTIMATED GFR I S NOT APPLICABLE FOR DIALYSIS PATIEN TS. POCT-GLUCOSE [id number] 00:45:00 Test Item Value Reference Range Interpretation Comments POC-GLUCOSE METER 93 mg/dL 70-110 TESTED AT [place] [address] [facility] (test code = [facility] [id number] 1538) POCT-GLUCOSE [id number] 18:47:00 Test Item Value Reference Range Interpretation Comments POC-GLUCOSE METER 113 mg/dL 70-110 H TESTED AT [place] [address] ([facility]) (test code = [facility] 1538) [id number] POCT-GLUCOSE [id number] 12:26:00 Test Item Value Reference Range Interpretation Comments POC-GLUCOSE METER 125 mg/dL 70-110 H TESTED AT [place] [address] ([facility]) (test code = [facility] 1538) [id number] POCT-GLUCOSE [id number] 06:19:00 Test Item Value Reference Range Interpretation Comments POC-GLUCOSE METER 128 mg/dL 70-110 H TESTED AT [place] [address] ([facility]) (test code = [facility] 1538) [id number] COMPREHENSIVE METABOLIC [id number] 04:41:00 Test Item Value Reference Range Interpretation Comments TOTAL PROTEIN 6.1 gm/dL 6.0-8.3 (BEAKER) (test code = 770) ALBUMIN (BEAKER) 3.4 g/dL 3.5-5.0 L (test code = 1145) ALKALINE PHOSPHATASE 56 U/L 40-150 (BEAKER) (test code = 346) BILIRUBIN TOTAL 0.7 mg/dL 0.2-1.2 (BEAKER) (test code = 377) SODIUM (BEAKER) (test 137 meq/L 136-145 code = 381) POTASSIUM (BEAKER) 4.3 meq/L 3.5-5.1 (test code = 379) CHLORIDE (BEAKER) 110 meq/L 98-107 H (test code = 382) CO2 (BEAKER) (test 15 meq/L 22-29 L code = 355) BLOOD UREA NITROGEN 14 mg/dL 7-21 (BEAKER) (test code = 354) CREATININE (BEAKER) 0.88 mg/dL 0.57-1.25 (test code = 358) GLUCOSE RANDOM 122 mg/dL 70-105 H (BEAKER) (test code = 652) CALCIUM (BEAKER) 8.9 mg/dL 8.4-10.2 (test code = 697) AST (SGOT) (BEAKER) 37 U/L 5-34 H (test code = 353) ALT (SGPT) (BEAKER) 19 U/L 6-55 (test code = 347) EGFR (BEAKER) (test 86 mL/min/1.73 ESTIMA ROSIE GFR IS code = 1092) sq m NOT ACCURATE CREATININE CLEARANCE IN PREDICTING GLOMERULAR FILTRATION RATE . ESTIMATED GFR I S NOT APPLICABLE FOR DIALYSIS PATIEN TS. CBC W/PLT COUNT & AUTO [id number] 04:33:00 Test Item Value Reference Range Interpretation Comments WHITE BLOOD CELL COUNT (BEAKER) 6.4 K/ L 4.0-10.0 (test code = 775) RED BLOOD CELL COUNT (BEAKER) 4.07 M/ L 4.20-5.80 L (test code = 761) HEMOGLOBIN (BEAKER) (test code = 12.3 GM/DL 13.0-16.8 L 410) HEMATOCRIT (BEAKER) (test code = 36.7 % 40.0-50.0 L 411) MEAN CORPUSCULAR VOLUME (BEAKER) 90.1 fL 82.0-98.0 (test code = 753) MEAN CORPUSCULAR HEMOGLOBIN 30.3 pg 27.0-33.0 (BEAKER) (test code = 751) MEAN CORPUSCULAR HEMOGLOBIN CONC 33.7 GM/DL 32.0-36.0 (BEAKER) (test code = 752) RED CELL DISTRIBUTION WIDTH 12.1 % 10.3-14.2 (BEAKER) (test code = 412) PLATELET COUNT (BEAKER) (test 152 K/CU MM 150-430 code = 756) MEAN PLATELET VOLUME (BEAKER) 7.0 fL 6.5-10.5 (test code = 754) NUCLEATED RED BLOOD CELLS 0 /100 WBC 0-0 (BEAKER) (test code = 413) NEUTROPHILS RELATIVE PERCENT 82 % (BEAKER) (test code = 429) LYMPHOCYTES RELATIVE PERCENT 6 % (BEAKER) (test code = 430) MONOCYTES RELATIVE PERCENT 11 % (BEAKER) (test code = 431) EOSINOPHILS RELATIVE PERCENT 1 % (BEAKER) (test code = 432) BASOPHILS RELATIVE PERCENT 0 % (BEAKER) (test code = 437) NEUTROPHILS ABSOLUTE COUNT 5.23 K/ L 1.80-8.00 (BEAKER) (test code = 670) LYMPHOCYTES ABSOLUTE COUNT 0.39 K/ L 1.48-4.50 L (BEAKER) (test code = 414) MONOCYTES ABSOLUTE COUNT (BEAKER) 0.68 K/ L 0.00-1.30 (test code = 415) EOSINOPHILS ABSOLUTE COUNT 0.04 K/ L 0.00-0.50 (BEAKER) (test code = 416) BASOPHILS ABSOLUTE COUNT (BEAKER) 0.02 K/ L 0.00-0.20 (test code = 417) 0.00POCT-GLUCOSE [id number] 00:50:00 Test Item Value Reference Range Interpretation Comments POC-GLUCOSE METER 117 mg/dL 70-110 H TESTED AT [place] [address] ([facility]) [facility] 1538) [id number] POCT-GLUCOSE [id number] 17:18:00 Test Item Value Reference Range Interpretation Comments POC-GLUCOSE METER 101 mg/dL 70-110 TESTED AT [place] [address] ([facility]) ([facility] 1538) [id number] POCT-GLUCOSE [id number] 12:59:00 Test Item Value Reference Range Interpretation Comments POC-GLUCOSE METER 80 mg/dL 70-110 TESTED AT [place] [address] ([facility]) (test code = [facility] Arvind [facility] [address] 1538) POCT-GLUCOSE [id number] 12:07:00 Test Item Value Reference Range Interpretation Comments POC-GLUCOSE METER 76 mg/dL 70-110 TESTED AT [place] [address] ([facility]) ([facility] [address] 1538) POCT-GLUCOSE [id number] 06:18:00 Test Item Value Reference Range Interpretation Comments POC-GLUCOSE METER 86 mg/dL 70-110 TESTED AT [facility] 6720 (BEAKER) (test code = [place] [address] 1538) [id number] 06:06:00 Test Item Value Reference Range Interpretation Comments PHOSPHORUS (BEAKER) (test code = 2.8 mg/dL 2.3-4.7 604) Once on admission and Daily AM afterwardsOnce on admission and Daily AM [id number] 06:06:00 Test Item Value Reference Range Interpretation Comments MAGNESIUM (BEAKER) (test code = 1.8 mg/dL 1.6-2.6 627) Once on admission and Daily AM afterwardsOnce on admission and Daily AM afterwardsCOMPREHENSIVE METABOLIC [id number] 06:06:00 Test Item Value Reference Range Interpretation Comments TOTAL PROTEIN 6.5 gm/dL 6.0-8.3 (BEAKER) (test code = 770) ALBUMIN (BEAKER) 3.6 g/dL 3.5-5.0 (test code = 1145) ALKALINE PHOSPHATASE 56 U/L 40-150 (BEAKER) (test code = 346) BILIRUBIN TOTAL 0.8 mg/dL 0.2-1.2 (BEAKER) (test code = 377) SODIUM (BEAKER) (test 137 meq/L 136-145 code = 381) POTASSIUM (BEAKER) 4.6 meq/L 3.5-5.1 (test code = 379) CHLORIDE (BEAKER) 107 meq/L 98-107 (test code = 382) CO2 (BEAKER) (test 21 meq/L 22-29 L code = 355) BLOOD UREA NITROGEN 16 mg/dL 7-21 (BEAKER) (test code = 354) CREATININE (BEAKER) 0.88 mg/dL 0.57-1.25 (test code = 358) GLUCOSE RANDOM 86 mg/dL 70-105 (BEAKER) (test code = 652) CALCIUM (BEAKER) 8.8 mg/dL 8.4-10.2 (test code = 697) AST (SGOT) (BEAKER) 27 U/L 5-34 (test code = 353) ALT (SGPT) (BEAKER) 15 U/L 6-55 (test code = 347) EGFR (BEAKER) (test 86 mL/min/1.73 ESTIMA ROSIE GFR IS code = 1092) sq m NOT ACCURATE CREATININE CLEARANCE IN PREDICTING GLOMERULAR FILTRATION RATE . ESTIMATED GFR I S NOT APPLICABLE FOR DIALYSIS PATIEN TS. Once on admission and Daily AM afterwardsOnce on admission and Daily AM afterwardsCBC W/PLT COUNT & AUTO [id number] 06:01:00 Test Item Value Reference Range Interpretation Comments WHITE BLOOD CELL COUNT (BEAKER) 4.8 K/ L 4.0-10.0 (test code = 775) RED BLOOD CELL COUNT (BEAKER) 4.26 M/ L 4.20-5.80 (test code = 761) HEMOGLOBIN (BEAKER) (test code = 12.8 GM/DL 13.0-16.8 L 410) HEMATOCRIT (BEAKER) (test code = 37.8 % 40.0-50.0 L 411) MEAN CORPUSCULAR VOLUME (BEAKER) 88.6 fL 82.0-98.0 (test code = 753) MEAN CORPUSCULAR HEMOGLOBIN 29.9 pg 27.0-33.0 (BEAKER) (test code = 751) MEAN CORPUSCULAR HEMOGLOBIN CONC 33.8 GM/DL 32.0-36.0 (BEAKER) (test code = 752) RED CELL DISTRIBUTION WIDTH 12.9 % 10.3-14.2 (BEAKER) (test code = 412) PLATELET COUNT (BEAKER) (test 142 K/CU MM 150-430 L code = 756) MEAN PLATELET VOLUME (BEAKER) 7.1 fL 6.5-10.5 (test code = 754) NUCLEATED RED BLOOD CELLS 0 /100 WBC 0-0 (BEAKER) (test code = 413) NEUTROPHILS RELATIVE PERCENT 79 % (BEAKER) (test code = 429) LYMPHOCYTES RELATIVE PERCENT 10 % (BEAKER) (test code = 430) MONOCYTES RELATIVE PERCENT 9 % (BEAKER) (test code = 431) EOSINOPHILS RELATIVE PERCENT 2 % (BEAKER) (test code = 432) BASOPHILS RELATIVE PERCENT 0 % (BEAKER) (test code = 437) NEUTROPHILS ABSOLUTE COUNT 3.74 K/ L 1.80-8.00 (BEAKER) (test code = 670) LYMPHOCYTES ABSOLUTE COUNT 0.48 K/ L 1.48-4.50 L (BEAKER) (test code = 414) MONOCYTES ABSOLUTE COUNT (BEAKER) 0.44 K/ L 0.00-1.30 (test code = 415) EOSINOPHILS ABSOLUTE COUNT 0.08 K/ L 0.00-0.50 (BEAKER) (test code = 416) BASOPHILS ABSOLUTE COUNT (BEAKER) 0.01 K/ L 0.00-0.20 (test code = 417) [id number] 01:40:00 Test Item Value Reference Range Interpretation Comments POTASSIUM (BEAKER) (test code = 4.0 meq/L 3.5-5.1 379) [id number] 01:40:00 Test Item Value Reference Range Interpretation Comments SODIUM (BEAKER) (test code = 381) 138 meq/L 136-145 POCT-GLUCOSE [id number] 00:19:00 Test Item Value Reference Range Interpretation Comments POC-GLUCOSE METER 89 mg/dL 70-110 TESTED AT [facility] 67 (BEAKER) (test code = [place] [address] 1538) [id number] 21:37:00 Test Item Value Reference Range Interpretation Comments SODIUM (BEAKER) (test code = 381) 137 meq/L 136-145 [id number] 19:02:00 Test Item Value Reference Range Interpretation Comments PARTIAL THROMBOPLASTIN TIME 24.9 seconds 22.5-36.0 (BEAKER) (test code = 760) PROTHROMBIN [id number] 19:01:00 Test Item Value Reference Range Interpretation Comments PROTIME (BEAKER) (test code = 13.8 seconds 11.7-14.7 759) INR (BEAKER) (test code = 370) 1.1 <=5.9 RECOMMENDED COUMADIN/WARFARIN INR THERAPY RANGESSTANDARD DOSE: 2.0 - 3.0 Includes: PROPHYLAXIS forvenous thrombosis, systemic embolization; TREATMENT for venous thrombosis and/or pulmonary embolus.HIGH RISK: Target INR is 2.5-3.5 for patients with mechanical heart valves.[id number] 19:00:00 Test Item Value Reference Range Interpretation Comments POTASSIUM (BEAKER) (test code = 4.0 meq/L 3.5-5.1 379) [id number] 19:00:00 Test Item Value Reference Range Interpretation Comments SODIUM (BEAKER) (test code = 381) 137 meq/L 136-145 HEPATIC FUNCTION [id number] 19:00:00 Test Item Value Reference Range Interpretation Comments TOTAL PROTEIN (BEAKER) (test code = 7.0 gm/dL 6.0-8.3 770) ALBUMIN (BEAKER) (test code = 1145) 3.9 g/dL 3.5-5.0 BILIRUBIN TOTAL (BEAKER) (test code 0.8 mg/dL 0.2-1.2 = 377) BILIRUBIN DIRECT (BEAKER) (test 0.3 mg/dL 0.1-0.5 code = 706) ALKALINE PHOSPHATASE (BEAKER) (test 60 U/L 40-150 code = 346) AST (SGOT) (BEAKER) (test code = 22 U/L 5-34 353) ALT (SGPT) (BEAKER) (test code = 16 U/L 6-55 347) POCT-GLUCOSE [id number] 18:42:00 Test Item Value Reference Range Interpretation Comments POC-GLUCOSE METER 96 mg/dL 70-110 TESTED AT [facility] 67 (BEAKER) (test code = JOSE Samuels [facility] [address] 1538) PLATELET AGGREGATION: FUNCTION [id number] 11:40:00 Test Item Value Reference Range Interpretation Comments WEAK ADP 50 % 60-91 L RESULT(BEAKER) (test code = 2135) PLATELET FUNCTION 50-59% indicates mild SCREEN INTERP platelet dysfunction (BEAKER) (test code = 2173) [id number] Justin Goel MD (BEAKER) (test code = (electronic signature) 3431) PLATELET COUNT AGG 124 K/CU MM 150-430 L (BEAKER) (test code = 2656) [id number] 05:44:00 Test Item Value Reference Range Interpretation Comments PHOSPHORUS (BEAKER) (test code = 3.1 mg/dL 2.3-4.7 604) [id number] 05:44:00 Test Item Value Reference Range Interpretation Comments MAGNESIUM (BEAKER) (test code = 1.9 mg/dL 1.6-2.6 627) COMPREHENSIVE METABOLIC [id number] 05:44:00 Test Item Value Reference Range Interpretation Comments TOTAL PROTEIN 6.6 gm/dL 6.0-8.3 (BEAKER) (test code = 770) ALBUMIN (BEAKER) 3.7 g/dL 3.5-5.0 (test code = 1145) ALKALINE PHOSPHATASE 56 U/L 40-150 (BEAKER) (test code = 346) BILIRUBIN TOTAL 0.5 mg/dL 0.2-1.2 (BEAKER) (test code = 377) SODIUM (BEAKER) (test 137 meq/L 136-145 code = 381) POTASSIUM (BEAKER) 4.0 meq/L 3.5-5.1 (test code = 379) CHLORIDE (BEAKER) 107 meq/L 98-107 (test code = 382) CO2 (BEAKER) (test 21 meq/L 22-29 L code = 355) BLOOD UREA NITROGEN 20 mg/dL 7-21 (BEAKER) (test code = 354) CREATININE (BEAKER) 0.94 mg/dL 0.57-1.25 (test code = 358) GLUCOSE RANDOM 106 mg/dL 70-105 H (BEAKER) (test code = 652) CALCIUM (BEAKER) 8.8 mg/dL 8.4-10.2 (test code = 697) AST (SGOT) (BEAKER) 16 U/L 5-34 (test code = 353) ALT (SGPT) (BEAKER) 12 U/L 6-55 (test code = 347) EGFR (BEAKER) (test 80 mL/min/1.73 ESTIMA ROSIE GFR IS code = 1092) sq m NOT ACCURATE CREATININE CLEARANCE IN PREDICTING GLOMERULAR FILTRATION RATE . ESTIMATED GFR I S NOT APPLICABLE FOR DIALYSIS PATIEN TS. CBC W/PLT COUNT & AUTO [id number] 05:29:00 Test Item Value Reference Range Interpretation Comments WHITE BLOOD CELL COUNT (BEAKER) 3.5 K/ L 4.0-10.0 L (test code = 775) RED BLOOD CELL COUNT (BEAKER) 4.21 M/ L 4.20-5.80 (test code = 761) HEMOGLOBIN (BEAKER) (test code = 12.8 GM/DL 13.0-16.8 L 410) HEMATOCRIT (BEAKER) (test code = 37.2 % 40.0-50.0 L 411) MEAN CORPUSCULAR VOLUME (BEAKER) 88.2 fL 82.0-98.0 (test code = 753) MEAN CORPUSCULAR HEMOGLOBIN 30.3 pg 27.0-33.0 (BEAKER) (test code = 751) MEAN CORPUSCULAR HEMOGLOBIN CONC 34.3 GM/DL 32.0-36.0 (BEAKER) (test code = 752) RED CELL DISTRIBUTION WIDTH 12.9 % 10.3-14.2 (BEAKER) (test code = 412) PLATELET COUNT (BEAKER) (test 128 K/CU MM 150-430 L code = 756) MEAN PLATELET VOLUME (BEAKER) 7.1 fL 6.5-10.5 (test code = 754) NUCLEATED RED BLOOD CELLS 0 /100 WBC 0-0 (BEAKER) (test code = 413) NEUTROPHILS RELATIVE PERCENT 70 % (BEAKER) (test code = 429) LYMPHOCYTES RELATIVE PERCENT 16 % (BEAKER) (test code = 430) MONOCYTES RELATIVE PERCENT 10 % (BEAKER) (test code = 431) EOSINOPHILS RELATIVE PERCENT 5 % (BEAKER) (test code = 432) BASOPHILS RELATIVE PERCENT 0 % (BEAKER) (test code = 437) NEUTROPHILS ABSOLUTE COUNT 2.42 K/ L 1.80-8.00 (BEAKER) (test code = 670) LYMPHOCYTES ABSOLUTE COUNT 0.54 K/ L 1.48-4.50 L (BEAKER) (test code = 414) MONOCYTES ABSOLUTE COUNT (BEAKER) 0.33 K/ L 0.00-1.30 (test code = 415) EOSINOPHILS ABSOLUTE COUNT 0.17 K/ L 0.00-0.50 (BEAKER) (test code = 416) BASOPHILS ABSOLUTE COUNT (BEAKER) 0.02 K/ L 0.00-0.20 (test code = 417) 0.00URINALYSIS W/ REFLEX URINE [id number] 22:30:00 Test Item Value Reference Range Interpretation Comments COLOR (BEAKER) (test code = 470) Yellow CLARITY (BEAKER) (test code = 469) Clear SPECIFIC GRAVITY UA (BEAKER) (test 1.050 1.001-1.035 H code = 468) PH UA (BEAKER) (test code = 467) 6.0 5.0-8.0 PROTEIN UA (BEAKER) (test code = 20 mg/dL Negative A 464) GLUCOSE UA (BEAKER) (test code = Negative Negative 365) KETONES UA (BEAKER) (test code = 40 mg/dL Negative A 371) BILIRUBIN UA (BEAKER) (test code = Negative Negative 462) BLOOD UA (BEAKER) (test code = Negative Negative 461) NITRITE UA (BEAKER) (test code = Negative Negative 465) LEUKOCYTE ESTERASE UA (BEAKER) Negative Negative (test code = 466) UROBILINOGEN UA (BEAKER) (test 2.0 mg/dL 0.2-1.0 H code = 463) RBC UA (BEAKER) (test code = 519) /HPF None Seen WBC UA (BEAKER) (test code = 520) /HPF None Seen SOURCE(BEAKER) (test code = 2795) TSH/FREE T4 IF [id number] 14:45:00 Test Item Value Reference Range Interpretation Comments THYROID STIMULATING HORMONE 2.66 uIU/mL 0.35-4.94 (BEAKER) (test code = 772) VITAMIN B12 AND [id number] 14:45:00 Test Item Value Reference Range Interpretation Comments VITAMIN B12 (BEAKER) (test code = 815 pg/mL 213-816 774) FOLATE (BEAKER) (test code = 362) 15.4 ng/mL >=7.0 Effective 07/06/2014: Folate Reference Range ChangeNew: >=7.0 Previous: >=5.4VALPROIC ACID LEVEL, [id number] 14:18:00 Test Item Value Reference Range Interpretation Comments VALPROIC ACID TOTAL (BEAKER) (test 24 ug/mL 50-100 L code = 924) Therapeutic range for some clinical conditions may be >100 ug/mLAMMONIA 2016-12-23 14:02:00 Test Item Value Reference Range Interpretation Comments AMMONIA (BEAKER) (test code = 348) 35 mol/L 18-72 BLOOD GAS, [id number] 13:50:00 Test Item Value Reference Range Interpretation Comments PH ARTERIAL (BEAKER) (test code = 7.47 7.35-7.45 H 383) PCO2 ARTERIAL (BEAKER) (test code 35 mmHg 35-45 = 384) PO2 ARTERIAL (BEAKER) (test code = 78 mmHg 80-90 L 385) O2 SATURATION ARTERIAL (BEAKER) 96.3 % 96.0-97.0 (test code = 386) HCO3 ARTERIAL (BEAKER) (test code 25 mmol/L 21-29 = 388) BASE EXCESS ARTERIAL (BEAKER) 1.2 mmol/L -2.0-3.0 (test code = 387) PATIENT TEMPERATURE (BEAKER) (test 36.9 C code = 1818) FIO2 (BEAKER) (test code = 1819) 21.0 % [id number] 10:49:00 Test Item Value Reference Range Interpretation Comments PROTIME (BEAKER) (test code = 14.7 seconds 11.7-14.7 759) INR (BEAKER) (test code = 370) 1.2 <=5.9 PARTIAL THROMBOPLASTIN TIME 31.8 seconds 22.5-36.0 (BEAKER) (test code = 760) RECOMMENDED COUMADIN/WARFARIN INR THERAPY RANGESSTANDARD DOSE: 2.0 - 3.0 Includes: PROPHYLAXIS forvenous thrombosis, systemic embolization; TREATMENT for venous thrombosis and/or pulmonary embolus.HIGH RISK: Target INR is 2.5-3.5 for patients with mechanical heart valves.PROTHROMBIN [id number] 10:48:00 Test Item Value Reference Range Interpretation Comments PROTIME (BEAKER) (test code = 14.7 seconds 11.7-14.7 759) INR (BEAKER) (test code = 370) 1.2 <=5.9 RECOMMENDED COUMADIN/WARFARIN INR THERAPY RANGESSTANDARD DOSE: 2.0 - 3.0 Includes: PROPHYLAXIS forvenous thrombosis, systemic embolization; TREATMENT for venous thrombosis and/or pulmonary embolus.HIGH RISK: Target INR is 2.5-3.5 for patients with mechanical heart valves.POCT-GLUCOSE [id number] 07:47:00 Test Item Value Reference Range Interpretation Comments POC-GLUCOSE METER 95 mg/dL 70-110 TESTED AT [facility] 6720 (BEAKER) (test code = [place] [address] 1538) BASIC METABOLIC [id number] 04:59:00 Test Item Value Reference Range Interpretation Comments SODIUM (BEAKER) 140 meq/L 136-145 (test code = 381) POTASSIUM (BEAKER) 4.1 meq/L 3.5-5.1 (test code = 379) CHLORIDE (BEAKER) 109 meq/L 98-107 H (test code = 382) CO2 (BEAKER) (test 22 meq/L 22-29 code = 355) BLOOD UREA NITROGEN 19 mg/dL 7-21 (BEAKER) (test code = 354) CREATININE (BEAKER) 0.95 mg/dL 0.57-1.25 (test code = 358) GLUCOSE RANDOM 97 mg/dL 70-105 (BEAKER) (test code = 652) CALCIUM (BEAKER) 8.2 mg/dL 8.4-10.2 L (test code = 697) EGFR (BEAKER) (test 79 mL/min/1.73 ESTIMA ROSIE GFR IS code = 1092) sq m NOT ACCURATE CREATININE CLEARANCE IN PREDICTING GLOMERULAR FILTRATION RATE . ESTIMATED GFR I S NOT APPLICABLE FOR DIALYSIS PATIEN TS. CBC W/PLT COUNT & AUTO [id number] 04:49:00 Test Item Value Reference Range Interpretation Comments WHITE BLOOD CELL COUNT (BEAKER) 6.3 K/ L 4.0-10.0 (test code = 775) RED BLOOD CELL COUNT (BEAKER) 3.77 M/ L 4.20-5.80 L (test code = 761) HEMOGLOBIN (BEAKER) (test code = 11.1 GM/DL 13.0-16.8 L 410) HEMATOCRIT (BEAKER) (test code = 34.8 % 40.0-50.0 L 411) MEAN CORPUSCULAR VOLUME (BEAKER) 92.4 fL 82.0-98.0 (test code = 753) MEAN CORPUSCULAR HEMOGLOBIN 29.4 pg 27.0-33.0 (BEAKER) (test code = 751) MEAN CORPUSCULAR HEMOGLOBIN CONC 31.8 GM/DL 32.0-36.0 L (BEAKER) (test code = 752) RED CELL DISTRIBUTION WIDTH 12.3 % 10.3-14.2 (BEAKER) (test code = 412) PLATELET COUNT (BEAKER) (test 156 K/CU MM 150-430 code = 756) MEAN PLATELET VOLUME (BEAKER) 6.9 fL 6.5-10.5 (test code = 754) NUCLEATED RED BLOOD CELLS 0 /100 WBC 0-0 (BEAKER) (test code = 413) NEUTROPHILS RELATIVE PERCENT 75 % (BEAKER) (test code = 429) LYMPHOCYTES RELATIVE PERCENT 16 % (BEAKER) (test code = 430) MONOCYTES RELATIVE PERCENT 9 % (BEAKER) (test code = 431) EOSINOPHILS RELATIVE PERCENT 1 % (BEAKER) (test code = 432) BASOPHILS RELATIVE PERCENT 0 % (BEAKER) (test code = 437) NEUTROPHILS ABSOLUTE COUNT 4.68 K/ L 1.80-8.00 (BEAKER) (test code = 670) LYMPHOCYTES ABSOLUTE COUNT 0.98 K/ L 1.48-4.50 L (BEAKER) (test code = 414) MONOCYTES ABSOLUTE COUNT (BEAKER) 0.56 K/ L 0.00-1.30 (test code = 415) EOSINOPHILS ABSOLUTE COUNT 0.04 K/ L 0.00-0.50 (BEAKER) (test code = 416) BASOPHILS ABSOLUTE COUNT (BEAKER) 0.02 K/ L 0.00-0.20 (test code = 417) 0.00POCT-GLUCOSE [id number] 04:02:00 Test Item Value Reference Range Interpretation Comments POC-GLUCOSE METER 114 mg/dL 70-110 H TESTED AT [facility] 6720 ([facility]) (test code = [facility] 1538) [address] POCT-GLUCOSE [id number] 07:17:00 Test Item Value Reference Range Interpretation Comments POC-GLUCOSE METER 134 mg/dL 70-110 H TESTED AT [facility] 67 ([facility]) (test code = [facility] 1538) [address] BASIC METABOLIC [id number] 03:52:00 Test Item Value Reference Range Interpretation Comments SODIUM (BEAKER) 137 meq/L 136-145 (test code = 381) POTASSIUM (BEAKER) 4.7 meq/L 3.5-5.1 Specimen slightly (test code = 379) hemolyzed CHLORIDE (BEAKER) 110 meq/L 98-107 H (test code = 382) CO2 (BEAKER) (test 20 meq/L 22-29 L code = 355) BLOOD UREA NITROGEN 21 mg/dL 7-21 (BEAKER) (test code = 354) CREATININE (BEAKER) 0.97 mg/dL 0.57-1.25 Specimen slightly (test code = 358) hemolyzed GLUCOSE RANDOM 140 mg/dL 70-105 H (BEAKER) (test code = 652) CALCIUM (BEAKER) 7.7 mg/dL 8.4-10.2 L (test code = 697) EGFR (BEAKER) (test 77 mL/min/1.73 ESTIMA ROSIE GFR IS code = 1092) sq m NOT ACCURATE CREATININE CLEARANCE IN PREDICTING GLOMERULAR FILTRATION RATE . ESTIMATED GFR I S NOT APPLICABLE FOR DIALYSIS PATIEN TS. [id number] 03:34:00 Test Item Value Reference Range Interpretation Comments MAGNESIUM (BEAKER) 2.1 mg/dL 1.6-2.6 Specimen slightly (test code = 627) hemolyzed [id number] 03:34:00 Test Item Value Reference Range Interpretation Comments PHOSPHORUS (BEAKER) 2.5 mg/dL 2.3-4.7 Specimen slightly (test code = 604) hemolyzed CBC W/PLT COUNT & AUTO [id number] 03:20:00 Test Item Value Reference Range Interpretation Comments WHITE BLOOD CELL COUNT (BEAKER) 7.8 K/ L 4.0-10.0 (test code = 775) RED BLOOD CELL COUNT (BEAKER) 3.73 M/ L 4.20-5.80 L (test code = 761) HEMOGLOBIN (BEAKER) (test code = 11.7 GM/DL 13.0-16.8 L 410) HEMATOCRIT (BEAKER) (test code = 34.4 % 40.0-50.0 L 411) MEAN CORPUSCULAR VOLUME (BEAKER) 92.3 fL 82.0-98.0 (test code = 753) MEAN CORPUSCULAR HEMOGLOBIN 31.5 pg 27.0-33.0 (BEAKER) (test code = 751) MEAN CORPUSCULAR HEMOGLOBIN CONC 34.1 GM/DL 32.0-36.0 (BEAKER) (test code = 752) RED CELL DISTRIBUTION WIDTH 13.3 % 10.3-14.2 (BEAKER) (test code = 412) PLATELET COUNT (BEAKER) (test 158 K/CU MM 150-430 code = 756) MEAN PLATELET VOLUME (BEAKER) 6.9 fL 6.5-10.5 (test code = 754) NUCLEATED RED BLOOD CELLS 0 /100 WBC 0-0 (BEAKER) (test code = 413) NEUTROPHILS RELATIVE PERCENT 90 % (BEAKER) (test code = 429) LYMPHOCYTES RELATIVE PERCENT 4 % (BEAKER) (test code = 430) MONOCYTES RELATIVE PERCENT 6 % (BEAKER) (test code = 431) EOSINOPHILS RELATIVE PERCENT 0 % (BEAKER) (test code = 432) BASOPHILS RELATIVE PERCENT 0 % (BEAKER) (test code = 437) NEUTROPHILS ABSOLUTE COUNT 6.98 K/ L 1.80-8.00 (BEAKER) (test code = 670) LYMPHOCYTES ABSOLUTE COUNT 0.30 K/ L 1.48-4.50 L (BEAKER) (test code = 414) MONOCYTES ABSOLUTE COUNT (BEAKER) 0.46 K/ L 0.00-1.30 (test code = 415) EOSINOPHILS ABSOLUTE COUNT 0.01 K/ L 0.00-0.50 (BEAKER) (test code = 416) BASOPHILS ABSOLUTE COUNT (BEAKER) 0.00 K/ L 0.00-0.20 (test code = 417) 0.00POCT-GLUCOSE [id number] 02:04:00 Test Item Value Reference Range Interpretation Comments POC-GLUCOSE METER 126 mg/dL 70-110 H TESTED AT [place] [address] ([facility]) (test code = [facility] 1538) [address] POCT-GLUCOSE [id number] 00:58:00 Test Item Value Reference Range Interpretation Comments POC-GLUCOSE METER 145 mg/dL 70-110 H TESTED AT [place] [address] ([facility]) (test code = [facility] 1538) [address] POCT-GLUCOSE [id number] 18:36:00 Test Item Value Reference Range Interpretation Comments POC-GLUCOSE METER 127 mg/dL 70-110 H TESTED AT [place] [address] ([facility]) (test code = [facility] 1538) [id number] PLATELET AGGREGATION: FUNCTION [id number] 09:33:00 Test Item Value Reference Range Interpretation Comments WEAK ADP 53 % 60-91 L RESULT(BEAKER) (test code = 2135) PLATELET FUNCTION 50-59% indicates mild SCREEN INTERP platelet dysfunction (BEAKER) (test code = 2173) [id number] Teja Ferreira M.D. ([facility]) (test code = (electonic signature) 9032) PLATELET COUNT AGG 120 K/CU MM 150-430 L (BEAKER) (test code = 4516) [id number] 04:59:00 Test Item Value Reference Range Interpretation Comments MAGNESIUM (BEAKER) 2.1 mg/dL 1.6-2.6 Specimen slightly (test code = 627) hemolyzed Once on admission and Daily AM afterwardsOnce on admission and Daily AM afterwardsOnce on admission and Daily AM [id number] 04:59:00 Test Item Value Reference Range Interpretation Comments PHOSPHORUS (BEAKER) 2.7 mg/dL 2.3-4.7 Specimen slightly (test code = 604) hemolyzed Once on admission and Daily AM afterwardsOnce on admission and Daily AM afterwardsOnce on admission and Daily AM afterwardsBASIC METABOLIC PANEL 2016-12-02 04:59:00 Test Item Value Reference Range Interpretation Comments SODIUM (BEAKER) 140 meq/L 136-145 (test code = 381) POTASSIUM (BEAKER) 4.5 meq/L 3.5-5.1 Specimen slightly (test code = 379) hemolyzed CHLORIDE (BEAKER) 108 meq/L 98-107 H (test code = 382) CO2 (BEAKER) (test 22 meq/L 22-29 code = 355) BLOOD UREA NITROGEN 17 mg/dL 7-21 (BEAKER) (test code = 354) CREATININE (BEAKER) 0.93 mg/dL 0.57-1.25 Specimen slightly (test code = 358) hemolyzed GLUCOSE RANDOM 82 mg/dL 70-105 (BEAKER) (test code = 652) CALCIUM (BEAKER) 8.2 mg/dL 8.4-10.2 L (test code = 697) EGFR (BEAKER) (test 81 mL/min/1.73 ESTIMA ROSIE GFR IS code = 1092) sq m NOT ACCURATE CREATININE CLEARANCE IN PREDICTING GLOMERULAR FILTRATION RATE . ESTIMATED GFR I S NOT APPLICABLE FOR DIALYSIS PATIEN TS. Once on admission and Daily AM afterwardsOnce on admission and Daily AM afterwardsOnce on admission and Daily AM afterwardsHEPATIC FUNCTION PANEL 2016-12-01 23:24:00 Test Item Value Reference Range Interpretation Comments TOTAL PROTEIN (BEAKER) 5.4 gm/dL 6.0-8.3 L Speci men slightly (test code = 770) hemolyzed ALBUMIN (BEAKER) (test 3.0 g/dL 3.5-5.0 L Speci men slightly code = 1145) hemolyzed BILIRUBIN TOTAL 0.4 mg/dL 0.2-1.2 Specimen sli ghtly (BEAKER) (test code = hemoly zed 377) BILIRUBIN DIRECT 0.2 mg/dL 0.1-0.5 Specimen sl ightly (BEAKER) (test code = hemoly zed 706) ALKALINE PHOSPHATASE 41 U/L 40-150 (BEAKER) (test code = 346) AST (SGOT) (BEAKER) 15 U/L 5-34 Specimen slightly (test code = 353) hemolyzed ALT (SGPT) (BEAKER) 10 U/L 6-55 Specimen slightly (test code = 347) hemolyzed [id number] 22:52:00 Test Item Value Reference Range Interpretation Comments PROTIME (BEAKER) (test code = 14.3 seconds 11.7-14.7 759) INR (BEAKER) (test code = 370) 1.1 <=5.9 PARTIAL THROMBOPLASTIN TIME 32.5 seconds 22.5-36.0 (BEAKER) (test code = 760) RECOMMENDED COUMADIN/WARFARIN INR THERAPY RANGESSTANDARD DOSE: 2.0 - 3.0 Includes: PROPHYLAXIS forvenous thrombosis, systemic embolization; TREATMENT for venous thrombosis and/or pulmonary embolus.HIGH RISK: Target INR is 2.5-3.5 for patients with mechanical heart valves.VALPROIC ACID LEVEL, [id number] 20:34:00 Test Item Value Reference Range Interpretation Comments VALPROIC ACID TOTAL (BEAKER) (test 19 ug/mL 50-100 L code = 924) Therapeutic range for some clinical conditions may be >100 ug/mLCREATINE KINASE (CK), TOTAL AND [id number] 10:02:00 Test Item Value Reference Range Interpretation Comments CREATINE KINASE TOTAL (BEAKER) 106 U/L 29-200 (test code = 380) CREATINE KINASE-MB (BEAKER) (test 1.4 ng/mL 0.0-6.6 code = 750) CREATINE KINASE-MB INDEX (BEAKER) 1.3 % (test code = 395) Effective 07/06/2014: CK-MB Reference Range ChangeNew: 0.0-6.6 Previous: 0.0-4.9CK-MB Reference Range:<6.7 Normal6.7-10.0 Borderline>10.0 AbnormalTROPONIN [id number] 10:00:00 Test Item Value Reference Range Interpretation Comments TROPONIN I (BEAKER) (test code = 397) < ng/mL 0.00-0.03 Effective 07/06/2014: Reference Range [...] and persistent tachyarrhythmia.CREATINE KINASE (CK), TOTAL AND MB 2016-10-30 00:05:00 Test Item Value Reference Range Interpretation Comments CREATINE KINASE TOTAL (BEAKER) 26 U/L 29-200 L (test code = 380) CREATINE KINASE-MB (BEAKER) (test 0.5 ng/mL 0.0-6.6 code = 750) CREATINE KINASE-MB INDEX (BEAKER) 1.9 % (test code = 395) Effective 07/06/2014: CK-MB Reference Range ChangeNew: 0.0-6.6 Previous: 0.0-4.9CK-MB Reference Range:<6.7 Normal6.7-10.0 Borderline>10.0 AbnormalTROPONIN [id number] 00:05:00 Test Item Value Reference Range Interpretation Comments TROPONIN I (BEAKER) (test code = 0.01 ng/mL 0.00-0.03 397) Effective 07/06/2014: Reference Range ChangeNew: 0.00-0.03 Previous [...] and persistent tachyarrhythmia.CREATINE KINASE (CK), TOTAL AND MB 2016-10-29 18:06:00 Test Item Value Reference Range Interpretation Comments CREATINE KINASE TOTAL (BEAKER) 38 U/L 29-200 (test code = 380) CREATINE KINASE-MB (BEAKER) (test 0.6 ng/mL 0.0-6.6 code = 750) CREATINE KINASE-MB INDEX (BEAKER) 1.6 % (test code = 395) Effective 07/06/2014: CK-MB Reference Range ChangeNew: 0.0-6.6 Previous: 0.0-4.9CK-MB Reference Range:<6.7 Normal6.7-10.0 Borderline>10.0 AbnormalTROPONIN [id number] 18:06:00 Test Item Value Reference Range Interpretation Comments TROPONIN I (BEAKER) (test code = 397) < ng/mL 0.00-0.03 Effective 07/06/2014: Reference Range [...] acute neurological disease, and persistent tachyarrhythmia.COMPREHENSIVE METABOLIC [id number] 18:03:00 Test Item Value Reference Range Interpretation Comments TOTAL PROTEIN 7.3 gm/dL 6.0-8.3 Specimen sligh tly (BEAKER) (test code = hemoly zed 770) ALBUMIN (BEAKER) 4.0 g/dL 3.5-5.0 Specimen sl ightly (test code = 1145) hemolyzed ALKALINE PHOSPHATASE 68 U/L 40-150 (BEAKER) (test code = 346) BILIRUBIN TOTAL 0.6 mg/dL 0.2-1.2 Specimen sli ghtly (BEAKER) (test code = hemoly zed 377) SODIUM (BEAKER) (test 137 meq/L 136-145 code = 381) POTASSIUM (BEAKER) 4.4 meq/L 3.5-5.1 Specimen slightly (test code = 379) hemolyzed CHLORIDE (BEAKER) 103 meq/L 98-107 (test code = 382) CO2 (BEAKER) (test 22 meq/L 22-29 code = 355) BLOOD UREA NITROGEN 16 mg/dL 7-21 (BEAKER) (test code = 354) CREATININE (BEAKER) 1.01 mg/dL 0.57-1.25 Specimen slightly (test code = 358) hemolyzed GLUCOSE RANDOM 114 mg/dL 70-105 H (BEAKER) (test code = 652) CALCIUM (BEAKER) 9.3 mg/dL 8.4-10.2 (test code = 697) AST (SGOT) (BEAKER) 20 U/L 5-34 Specimen slightly (test code = 353) hemolyzed ALT (SGPT) (BEAKER) 17 U/L 6-55 Specimen slightly (test code = 347) hemolyzed EGFR (BEAKER) (test 73 mL/min/1.73 ESTIMA ROSIE GFR IS code = 1092) sq m NOT ACCURATE CREATININE CLEARANCE IN PREDICTING GLOMERULAR FILTRATION RATE . ESTIMATED GFR I S NOT APPLICABLE FOR DIALYSIS PATIEN TS. CBC W/PLT COUNT & AUTO [id number] 17:43:00 Test Item Value Reference Range Interpretation Comments WHITE BLOOD CELL COUNT (BEAKER) 5.7 K/ L 4.0-10.0 (test code = 775) RED BLOOD CELL COUNT (BEAKER) 4.59 M/ L 4.20-5.80 (test code = 761) HEMOGLOBIN (BEAKER) (test code = 14.4 GM/DL 13.0-16.8 410) HEMATOCRIT (BEAKER) (test code = 41.7 % 40.0-50.0 411) MEAN CORPUSCULAR VOLUME (BEAKER) 90.8 fL 82.0-98.0 (test code = 753) MEAN CORPUSCULAR HEMOGLOBIN 31.3 pg 27.0-33.0 (BEAKER) (test code = 751) MEAN CORPUSCULAR HEMOGLOBIN CONC 34.5 GM/DL 32.0-36.0 (BEAKER) (test code = 752) RED CELL DISTRIBUTION WIDTH 12.0 % 10.3-14.2 (BEAKER) (test code = 412) PLATELET COUNT (BEAKER) (test 164 K/CU MM 150-430 code = 756) MEAN PLATELET VOLUME (BEAKER) 7.2 fL 6.5-10.5 (test code = 754) NUCLEATED RED BLOOD CELLS 0 /100 WBC 0-0 (BEAKER) (test code = 413) NEUTROPHILS RELATIVE PERCENT 77 % (BEAKER) (test code = 429) LYMPHOCYTES RELATIVE PERCENT 12 % (BEAKER) (test code = 430) MONOCYTES RELATIVE PERCENT 9 % (BEAKER) (test code = 431) EOSINOPHILS RELATIVE PERCENT 2 % (BEAKER) (test code = 432) BASOPHILS RELATIVE PERCENT 1 % (BEAKER) (test code = 437) NEUTROPHILS ABSOLUTE COUNT 4.40 K/ L 1.80-8.00 (BEAKER) (test code = 670) LYMPHOCYTES ABSOLUTE COUNT 0.68 K/ L 1.48-4.50 L (BEAKER) (test code = 414) MONOCYTES ABSOLUTE COUNT (BEAKER) 0.50 K/ L 0.00-1.30 (test code = 415) EOSINOPHILS ABSOLUTE COUNT 0.12 K/ L 0.00-0.50 (BEAKER) (test code = 416) BASOPHILS ABSOLUTE COUNT (BEAKER) 0.03 K/ L 0.00-0.20 (test code = 417) [id number] 05:44:00 Test Item Value Reference Range Interpretation Comments MAGNESIUM (BEAKER) (test code = 2.0 mg/dL 1.6-2.6 627) [id number] 11:00:00 Test Item Value Reference Range Interpretation Comments RPR SCREEN (BEAKER) (test code = Nonreactive Nonreactive 420) HEMOGLOBIN [id number] 10:35:00 Test Item Value Reference Range Interpretation Comments HEMOGLOBIN A1C (BEAKER) (test code = 5.1 % 4.3-6.1 368) CBC W/PLT COUNT & AUTO [id number] 07:10:00 Test Item Value Reference Range Interpretation Comments WHITE BLOOD CELL COUNT (BEAKER) 4.5 K/ L 4.0-10.0 (test code = 775) RED BLOOD CELL COUNT (BEAKER) 4.53 M/ L 4.20-5.80 (test code = 761) HEMOGLOBIN (BEAKER) (test code = 13.6 GM/DL 13.0-16.8 410) HEMATOCRIT (BEAKER) (test code = 41.1 % 40.0-50.0 411) MEAN CORPUSCULAR VOLUME (BEAKER) 90.7 fL 82.0-98.0 (test code = 753) MEAN CORPUSCULAR HEMOGLOBIN 30.1 pg 27.0-33.0 (BEAKER) (test code = 751) MEAN CORPUSCULAR HEMOGLOBIN CONC 33.1 GM/DL 32.0-36.0 (BEAKER) (test code = 752) RED CELL DISTRIBUTION WIDTH 12.1 % 10.3-14.2 (BEAKER) (test code = 412) PLATELET COUNT (BEAKER) (test 169 K/CU MM 150-430 code = 756) MEAN PLATELET VOLUME (BEAKER) 7.1 fL 6.5-10.5 (test code = 754) NUCLEATED RED BLOOD CELLS 0 /100 WBC 0-0 (BEAKER) (test code = 413) NEUTROPHILS RELATIVE PERCENT 72 % (BEAKER) (test code = 429) LYMPHOCYTES RELATIVE PERCENT 17 % (BEAKER) (test code = 430) MONOCYTES RELATIVE PERCENT 8 % (BEAKER) (test code = 431) EOSINOPHILS RELATIVE PERCENT 3 % (BEAKER) (test code = 432) BASOPHILS RELATIVE PERCENT 1 % (BEAKER) (test code = 437) NEUTROPHILS ABSOLUTE COUNT 3.20 K/ L 1.80-8.00 (BEAKER) (test code = 670) LYMPHOCYTES ABSOLUTE COUNT 0.76 K/ L 1.48-4.50 L (BEAKER) (test code = 414) MONOCYTES ABSOLUTE COUNT (BEAKER) 0.35 K/ L 0.00-1.30 (test code = 415) EOSINOPHILS ABSOLUTE COUNT 0.12 K/ L 0.00-0.50 (BEAKER) (test code = 416) BASOPHILS ABSOLUTE COUNT (BEAKER) 0.03 K/ L 0.00-0.20 (test code = 417) 0.00VITAMIN [id number] 06:57:00 Test Item Value Reference Range Interpretation Comments VITAMIN B12 (BEAKER) (test code = 584 pg/mL 213-816 774) TSH/FREE T4 IF [id number] 06:57:00 Test Item Value Reference Range Interpretation Comments THYROID STIMULATING HORMONE 0.98 uIU/mL 0.35-4.94 (BEAKER) (test code = 772) [id number] 06:15:00 Test Item Value Reference Range Interpretation Comments MAGNESIUM (BEAKER) (test code = 2.1 mg/dL 1.6-2.6 627) COMPREHENSIVE METABOLIC [id number] 06:15:00 Test Item Value Reference Range Interpretation Comments TOTAL PROTEIN 6.8 gm/dL 6.0-8.3 (BEAKER) (test code = 770) ALBUMIN (BEAKER) 3.9 g/dL 3.5-5.0 (test code = 1145) ALKALINE PHOSPHATASE 64 U/L 40-150 (BEAKER) (test code = 346) BILIRUBIN TOTAL 0.6 mg/dL 0.2-1.2 (BEAKER) (test code = 377) SODIUM (BEAKER) (test 136 meq/L 136-145 code = 381) POTASSIUM (BEAKER) 4.0 meq/L 3.5-5.1 (test code = 379) CHLORIDE (BEAKER) 104 meq/L 98-107 (test code = 382) CO2 (BEAKER) (test 21 meq/L 22-29 L code = 355) BLOOD UREA NITROGEN 14 mg/dL 7-21 (BEAKER) (test code = 354) CREATININE (BEAKER) 0.98 mg/dL 0.57-1.25 (test code = 358) GLUCOSE RANDOM 101 mg/dL 70-105 (BEAKER) (test code = 652) CALCIUM (BEAKER) 8.9 mg/dL 8.4-10.2 (test code = 697) AST (SGOT) (BEAKER) 15 U/L 5-34 (test code = 353) ALT (SGPT) (BEAKER) 15 U/L 6-55 (test code = 347) EGFR (BEAKER) (test 76 mL/min/1.73 ESTIMA ROSIE GFR IS code = 1092) sq m NOT ACCURATE CREATININE CLEARANCE IN PREDICTING GLOMERULAR FILTRATION RATE . ESTIMATED GFR I S NOT APPLICABLE FOR DIALYSIS PATIEN TS. BASIC METABOLIC [id number] 06:15:00 Test Item Value Reference Range Interpretation Comments SODIUM (BEAKER) 136 meq/L 136-145 (test code = 381) POTASSIUM (BEAKER) 4.0 meq/L 3.5-5.1 (test code = 379) CHLORIDE (BEAKER) 104 meq/L 98-107 (test code = 382) CO2 (BEAKER) (test 21 meq/L 22-29 L code = 355) BLOOD UREA NITROGEN 14 mg/dL 7-21 (BEAKER) (test code = 354) CREATININE (BEAKER) 0.98 mg/dL 0.57-1.25 (test code = 358) GLUCOSE RANDOM 101 mg/dL 70-105 (BEAKER) (test code = 652) CALCIUM (BEAKER) 8.9 mg/dL 8.4-10.2 (test code = 697) EGFR (BEAKER) (test 76 mL/min/1.73 ESTIMA ROSIE GFR IS code = 1092) sq m NOT ACCURATE CREATININE CLEARANCE IN PREDICTING GLOMERULAR FILTRATION RATE . ESTIMATED GFR I S NOT APPLICABLE FOR DIALYSIS PATIEN TS. LIPID [id number] 06:15:00 Test Item Value Reference Range Interpretation Comments TRIGLYCERIDES (BEAKER) (test code = 114 mg/dL 540) CHOLESTEROL (BEAKER) (test code = 161 mg/dL 631) HDL CHOLESTEROL (BEAKER) (test code 36 mg/dL = 976) LDL CHOLESTEROL CALCULATED (BEAKER) 102 mg/dL (test code = 633) Triglyceride Reference Range: Low Risk <150 Borderline 150-199 High Risk 200-499 Very High Risk >=500Cholesterol Reference Range: Low Risk <200 Borderline 200-239 High Risk >240HDL Cholesterol Reference Range: Low Risk >=60 High Risk <40LDL Cholesterol Reference Range: Optimal <100 Near Optimal 100-129 Borderline 130-159 High 160-189 Very High >=190BASIC METABOLIC [id number] 05:07:00 Test Item Value Reference Range Interpretation Comments SODIUM (BEAKER) 137 meq/L 136-145 (test code = 381) POTASSIUM (BEAKER) 4.2 meq/L 3.5-5.1 (test code = 379) CHLORIDE (BEAKER) 105 meq/L 98-107 (test code = 382) CO2 (BEAKER) (test 22 meq/L 22-29 code = 355) BLOOD UREA NITROGEN 13 mg/dL 7-21 (BEAKER) (test code = 354) CREATININE (BEAKER) 0.93 mg/dL 0.57-1.25 (test code = 358) GLUCOSE RANDOM 102 mg/dL 70-105 (BEAKER) (test code = 652) CALCIUM (BEAKER) 9.3 mg/dL 8.4-10.2 (test code = 697) EGFR (BEAKER) (test 81 mL/min/1.73 ESTIMA ROSIE GFR IS code = 1092) sq m NOT ACCURATE CREATININE CLEARANCE IN PREDICTING GLOMERULAR FILTRATION RATE . ESTIMATED GFR I S NOT APPLICABLE FOR DIALYSIS PATIEN TS. CBC W/PLT COUNT & AUTO [id number] 05:00:00 Test Item Value Reference Range Interpretation Comments WHITE BLOOD CELL COUNT (BEAKER) 5.3 K/ L 4.0-10.0 (test code = 775) RED BLOOD CELL COUNT (BEAKER) 4.52 M/ L 4.20-5.80 (test code = 761) HEMOGLOBIN (BEAKER) (test code = 13.6 GM/DL 13.0-16.8 410) HEMATOCRIT (BEAKER) (test code = 40.4 % 40.0-50.0 411) MEAN CORPUSCULAR VOLUME (BEAKER) 89.4 fL 82.0-98.0 (test code = 753) MEAN CORPUSCULAR HEMOGLOBIN 30.1 pg 27.0-33.0 (BEAKER) (test code = 751) MEAN CORPUSCULAR HEMOGLOBIN CONC 33.7 GM/DL 32.0-36.0 (BEAKER) (test code = 752) RED CELL DISTRIBUTION WIDTH 12.1 % 10.3-14.2 (BEAKER) (test code = 412) PLATELET COUNT (BEAKER) (test 157 K/CU MM 150-430 code = 756) MEAN PLATELET VOLUME (BEAKER) 7.0 fL 6.5-10.5 (test code = 754) NUCLEATED RED BLOOD CELLS 0 /100 WBC 0-0 (BEAKER) (test code = 413) NEUTROPHILS RELATIVE PERCENT 78 % (BEAKER) (test code = 429) LYMPHOCYTES RELATIVE PERCENT 11 % (BEAKER) (test code = 430) MONOCYTES RELATIVE PERCENT 7 % (BEAKER) (test code = 431) EOSINOPHILS RELATIVE PERCENT 3 % (BEAKER) (test code = 432) BASOPHILS RELATIVE PERCENT 0 % (BEAKER) (test code = 437) NEUTROPHILS ABSOLUTE COUNT 4.11 K/ L 1.80-8.00 (BEAKER) (test code = 670) LYMPHOCYTES ABSOLUTE COUNT 0.56 K/ L 1.48-4.50 L (BEAKER) (test code = 414) MONOCYTES ABSOLUTE COUNT (BEAKER) 0.39 K/ L 0.00-1.30 (test code = 415) EOSINOPHILS ABSOLUTE COUNT 0.16 K/ L 0.00-0.50 (BEAKER) (test code = 416) BASOPHILS ABSOLUTE COUNT (BEAKER) 0.02 K/ L 0.00-0.20 (test code = 417) 0.00BASIC METABOLIC [id number] 19:13:00 Test Item Value Reference Range Interpretation Comments SODIUM (BEAKER) 136 meq/L 136-145 (test code = 381) POTASSIUM (BEAKER) 3.7 meq/L 3.5-5.1 (test code = 379) CHLORIDE (BEAKER) 105 meq/L 98-107 (test code = 382) CO2 (BEAKER) (test 25 meq/L 22-29 code = 355) BLOOD UREA NITROGEN 14 mg/dL 7-21 (BEAKER) (test code = 354) CREATININE (BEAKER) 0.93 mg/dL 0.57-1.25 (test code = 358) GLUCOSE RANDOM 147 mg/dL 70-105 H (BEAKER) (test code = 652) CALCIUM (BEAKER) 9.2 mg/dL 8.4-10.2 (test code = 697) EGFR (BEAKER) (test 81 mL/min/1.73 ESTIMA ROSIE GFR IS code = 1092) sq m NOT ACCURATE CREATININE CLEARANCE IN PREDICTING GLOMERULAR FILTRATION RATE . ESTIMATED GFR I S NOT APPLICABLE FOR DIALYSIS PATIEN TS. CBC W/PLT COUNT & AUTO [id number] 19:08:00 Test Item Value Reference Range Interpretation Comments WHITE BLOOD CELL COUNT (BEAKER) 5.3 K/ L 4.0-10.0 (test code = 775) RED BLOOD CELL COUNT (BEAKER) 4.25 M/ L 4.20-5.80 (test code = 761) HEMOGLOBIN (BEAKER) (test code = 13.4 GM/DL 13.0-16.8 410) HEMATOCRIT (BEAKER) (test code = 37.7 % 40.0-50.0 L 411) MEAN CORPUSCULAR VOLUME (BEAKER) 88.7 fL 82.0-98.0 (test code = 753) MEAN CORPUSCULAR HEMOGLOBIN 31.5 pg 27.0-33.0 (BEAKER) (test code = 751) MEAN CORPUSCULAR HEMOGLOBIN CONC 35.5 GM/DL 32.0-36.0 (BEAKER) (test code = 752) RED CELL DISTRIBUTION WIDTH 11.9 % 10.3-14.2 (BEAKER) (test code = 412) PLATELET COUNT (BEAKER) (test 142 K/CU MM 150-430 L code = 756) MEAN PLATELET VOLUME (BEAKER) 6.7 fL 6.5-10.5 (test code = 754) NUCLEATED RED BLOOD CELLS 0 /100 WBC 0-0 (BEAKER) (test code = 413) NEUTROPHILS RELATIVE PERCENT 81 % (BEAKER) (test code = 429) LYMPHOCYTES RELATIVE PERCENT 11 % (BEAKER) (test code = 430) MONOCYTES RELATIVE PERCENT 6 % (BEAKER) (test code = 431) EOSINOPHILS RELATIVE PERCENT 2 % (BEAKER) (test code = 432) BASOPHILS RELATIVE PERCENT 0 % (BEAKER) (test code = 437) NEUTROPHILS ABSOLUTE COUNT 4.27 K/ L 1.80-8.00 (BEAKER) (test code = 670) LYMPHOCYTES ABSOLUTE COUNT 0.57 K/ L 1.48-4.50 L (BEAKER) (test code = 414) MONOCYTES ABSOLUTE COUNT (BEAKER) 0.33 K/ L 0.00-1.30 (test code = 415) EOSINOPHILS ABSOLUTE COUNT 0.11 K/ L 0.00-0.50 (BEAKER) (test code = 416) BASOPHILS ABSOLUTE COUNT (BEAKER) 0.02 K/ L 0.00-0.20 (test code = 417) 0.00POCT-GLUCOSE [id number] 14:07:00 Test Item Value Reference Range Interpretation Comments POC-GLUCOSE METER 99 mg/dL 70-110 TESTED AT [place] [address] [facility] ([facility] [address] 1538) POCT-GLUCOSE [id number] 13:05:00 Test Item Value Reference Range Interpretation Comments POC-GLUCOSE METER 115 mg/dL 70-110 H TESTED AT [place] [address] ([facility] (test [facility] = [facility] 1538) [id number] POCT-GLUCOSE [id number] 07:34:00 Test Item Value Reference Range Interpretation Comments POC-GLUCOSE METER 145 mg/dL 70-110 H TESTED AT [facility] 6720 (BEAKER) (test code = [place] 1538) [id number] 06:56:00 Test Item Value Reference Range Interpretation Comments PHOSPHORUS (BEAKER) (test code = 3.3 mg/dL 2.3-4.7 604) [id number] 06:56:00 Test Item Value Reference Range Interpretation Comments MAGNESIUM (BEAKER) (test code = 1.9 mg/dL 1.6-2.6 627) BASIC METABOLIC [id number] 06:56:00 Test Item Value Reference Range Interpretation Comments SODIUM (BEAKER) 137 meq/L 136-145 (test code = 381) POTASSIUM (BEAKER) 4.2 meq/L 3.5-5.1 (test code = 379) CHLORIDE (BEAKER) 105 meq/L 98-107 (test code = 382) CO2 (BEAKER) (test 22 meq/L 22-29 code = 355) BLOOD UREA NITROGEN 15 mg/dL 7-21 (BEAKER) (test code = 354) CREATININE (BEAKER) 0.90 mg/dL 0.57-1.25 (test code = 358) GLUCOSE RANDOM 100 mg/dL 70-105 (BEAKER) (test code = 652) CALCIUM (BEAKER) 8.9 mg/dL 8.4-10.2 (test code = 697) EGFR (BEAKER) (test 84 mL/min/1.73 ESTIMA ROSIE GFR IS code = 1092) sq m NOT ACCURATE CREATININE CLEARANCE IN PREDICTING GLOMERULAR FILTRATION RATE . ESTIMATED GFR I S NOT APPLICABLE FOR DIALYSIS PATIEN TS. CBC W/PLT COUNT & AUTO [id number] 06:34:00 Test Item Value Reference Range Interpretation Comments WHITE BLOOD CELL COUNT (BEAKER) 4.2 K/ L 4.0-10.0 (test code = 775) RED BLOOD CELL COUNT (BEAKER) 4.24 M/ L 4.20-5.80 (test code = 761) HEMOGLOBIN (BEAKER) (test code = 13.1 GM/DL 13.0-16.8 410) HEMATOCRIT (BEAKER) (test code = 37.7 % 40.0-50.0 L 411) MEAN CORPUSCULAR VOLUME (BEAKER) 88.7 fL 82.0-98.0 (test code = 753) MEAN CORPUSCULAR HEMOGLOBIN 30.9 pg 27.0-33.0 (BEAKER) (test code = 751) MEAN CORPUSCULAR HEMOGLOBIN CONC 34.8 GM/DL 32.0-36.0 (BEAKER) (test code = 752) RED CELL DISTRIBUTION WIDTH 13.2 % 10.3-14.2 (BEAKER) (test code = 412) PLATELET COUNT (BEAKER) (test 130 K/CU MM 150-430 L code = 756) MEAN PLATELET VOLUME (BEAKER) 7.1 fL 6.5-10.5 (test code = 754) NUCLEATED RED BLOOD CELLS 0 /100 WBC 0-0 (BEAKER) (test code = 413) NEUTROPHILS RELATIVE PERCENT 73 % (BEAKER) (test code = 429) LYMPHOCYTES RELATIVE PERCENT 16 % (BEAKER) (test code = 430) MONOCYTES RELATIVE PERCENT 7 % (BEAKER) (test code = 431) EOSINOPHILS RELATIVE PERCENT 5 % (BEAKER) (test code = 432) BASOPHILS RELATIVE PERCENT 0 % (BEAKER) (test code = 437) NEUTROPHILS ABSOLUTE COUNT 3.06 K/ L 1.80-8.00 (BEAKER) (test code = 670) LYMPHOCYTES ABSOLUTE COUNT 0.67 K/ L 1.48-4.50 L (BEAKER) (test code = 414) MONOCYTES ABSOLUTE COUNT (BEAKER) 0.28 K/ L 0.00-1.30 (test code = 415) EOSINOPHILS ABSOLUTE COUNT 0.21 K/ L 0.00-0.50 (BEAKER) (test code = 416) BASOPHILS ABSOLUTE COUNT (BEAKER) 0.00 K/ L 0.00-0.20 (test code = 417) [id number] 06:29:00 Test Item Value Reference Range Interpretation Comments PARTIAL THROMBOPLASTIN TIME 30.9 seconds 22.5-36.0 (BEAKER) (test code = 760) PROTHROMBIN [id number] 06:28:00 Test Item Value Reference Range Interpretation Comments PROTIME (BEAKER) (test code = 14.0 seconds 11.7-14.7 759) INR (BEAKER) (test code = 370) 1.1 <=5.9 RECOMMENDED COUMADIN/WARFARIN INR THERAPY RANGESSTANDARD DOSE: 2.0 - 3.0 Includes: PROPHYLAXIS forvenous thrombosis, systemic embolization; TREATMENT for venous thrombosis and/or pulmonary embolus.HIGH RISK: Target INR is 2.5-3.5 for patients with mechanical heart valves.POCT-GLUCOSE [id number] 05:42:00 Test Item Value Reference Range Interpretation Comments POC-GLUCOSE METER 90 mg/dL 70-110 TESTED AT [place] [address] ([facility]) (test code = [facility] [id number] 1538) POCT-GLUCOSE [id number] 23:43:00 Test Item Value Reference Range Interpretation Comments POC-GLUCOSE METER 118 mg/dL 70-110 H TESTED AT [place] [address] ([facility]) (test code = [facility] 1538) [address] POCT-GLUCOSE [id number] 17:19:00 Test Item Value Reference Range Interpretation Comments POC-GLUCOSE METER 127 mg/dL 70-110 H TESTED AT [place] [address] ([facility]) (test code = [facility] 1538) [id number] POCT-GLUCOSE [id number] 12:30:00 Test Item Value Reference Range Interpretation Comments POC-GLUCOSE METER 103 mg/dL 70-110 TESTED AT [place] [address] ([facility]) (test code = [facility] 1538) [address] POCT-GLUCOSE [id number] 09:52:00 Test Item Value Reference Range Interpretation Comments POC-GLUCOSE METER 137 mg/dL 70-110 H TESTED AT [place] [address] ([facility]) (test code = [facility] 1538) [address] CBC W/PLT COUNT & AUTO [id number] 06:43:00 Test Item Value Reference Range Interpretation Comments WHITE BLOOD CELL COUNT ([facility]) 4.9 K/ L 4.0-10.0 (test code = 775) RED BLOOD CELL COUNT ([facility]) 4.36 M/ L 4.20-5.80 (test code = 761) HEMOGLOBIN ([facility]) (test code = 13.2 GM/DL 13.0-16.8 410) HEMATOCRIT ([facility]) (test code = 39.1 % 40.0-50.0 L 411) MEAN CORPUSCULAR VOLUME ([facility]) 89.8 fL 82.0-98.0 (test code = 753) MEAN CORPUSCULAR HEMOGLOBIN 30.2 pg 27.0-33.0 (BEAKER) (test code = 751) MEAN CORPUSCULAR HEMOGLOBIN CONC 33.7 GM/DL 32.0-36.0 (BEAKER) (test code = 752) RED CELL DISTRIBUTION WIDTH 12.0 % 10.3-14.2 (BEAKER) (test code = 412) PLATELET COUNT (BEAKER) (test 143 K/CU MM 150-430 L code = 756) MEAN PLATELET VOLUME (BEAKER) 6.9 fL 6.5-10.5 (test code = 754) NUCLEATED RED BLOOD CELLS 0 /100 WBC 0-0 (BEAKER) (test code = 413) NEUTROPHILS RELATIVE PERCENT 74 % (BEAKER) (test code = 429) LYMPHOCYTES RELATIVE PERCENT 16 % (BEAKER) (test code = 430) MONOCYTES RELATIVE PERCENT 6 % (BEAKER) (test code = 431) EOSINOPHILS RELATIVE PERCENT 4 % (BEAKER) (test code = 432) BASOPHILS RELATIVE PERCENT 0 % (BEAKER) (test code = 437) NEUTROPHILS ABSOLUTE COUNT 3.59 K/ L 1.80-8.00 (BEAKER) (test code = 670) LYMPHOCYTES ABSOLUTE COUNT 0.78 K/ L 1.48-4.50 L (BEAKER) (test code = 414) MONOCYTES ABSOLUTE COUNT (BEAKER) 0.30 K/ L 0.00-1.30 (test code = 415) EOSINOPHILS ABSOLUTE COUNT 0.21 K/ L 0.00-0.50 (BEAKER) (test code = 416) BASOPHILS ABSOLUTE COUNT (BEAKER) 0.01 K/ L 0.00-0.20 (test code = 417) [id number] 06:39:00 Test Item Value Reference Range Interpretation Comments PHOSPHORUS (BEAKER) (test code = 3.2 mg/dL 2.3-4.7 604) [id number] 06:39:00 Test Item Value Reference Range Interpretation Comments MAGNESIUM (BEAKER) (test code = 1.9 mg/dL 1.6-2.6 627) BASIC METABOLIC [id number] 06:39:00 Test Item Value Reference Range Interpretation Comments SODIUM (BEAKER) 137 meq/L 136-145 (test code = 381) POTASSIUM (BEAKER) 3.9 meq/L 3.5-5.1 (test code = 379) CHLORIDE (BEAKER) 106 meq/L 98-107 (test code = 382) CO2 (BEAKER) (test 23 meq/L 22-29 code = 355) BLOOD UREA NITROGEN 14 mg/dL 7-21 (BEAKER) (test code = 354) CREATININE (BEAKER) 0.89 mg/dL 0.57-1.25 (test code = 358) GLUCOSE RANDOM 99 mg/dL 70-105 (BEAKER) (test code = 652) CALCIUM (BEAKER) 9.0 mg/dL 8.4-10.2 (test code = 697) EGFR (BEAKER) (test 85 mL/min/1.73 ESTIMA ROSIE GFR IS code = 1092) sq m NOT ACCURATE CREATININE CLEARANCE IN PREDICTING GLOMERULAR FILTRATION RATE . ESTIMATED GFR I S NOT APPLICABLE FOR DIALYSIS PATIEN TS. PROTHROMBIN [id number] 06:31:00 Test Item Value Reference Range Interpretation Comments PROTIME (BEAKER) (test code = 13.7 seconds 11.7-14.7 759) INR (BEAKER) (test code = 370) 1.1 <=5.9 RECOMMENDED COUMADIN/WARFARIN INR THERAPY RANGESSTANDARD DOSE: 2.0 - 3.0 Includes: PROPHYLAXIS forvenous thrombosis, systemic embolization; TREATMENT for venous thrombosis and/or pulmonary embolus.HIGH RISK: Target INR is 2.5-3.5 for patients with mechanical heart valves.[id number] 06:31:00 Test Item Value Reference Range Interpretation Comments PARTIAL THROMBOPLASTIN TIME 30.3 seconds 22.5-36.0 (BEAKER) (test code = 760) POCT-GLUCOSE [id number] 21:46:00 Test Item Value Reference Range Interpretation Comments POC-GLUCOSE METER 97 mg/dL 70-110 TESTED AT [facility] 6720 ([facility]) (test code = [facility] [address] 1538) POCT-GLUCOSE [id number] 12:19:00 Test Item Value Reference Range Interpretation Comments POC-GLUCOSE METER 118 mg/dL 70-110 H TESTED AT [facility] 6720 ([facility]) (test code = [facility] 1538) [id number] POCT-GLUCOSE [id number] 08:50:00 Test Item Value Reference Range Interpretation Comments POC-GLUCOSE METER 135 mg/dL 70-110 H TESTED AT [facility] 6720 (BEAKER) (test code = [place] 1538) [id number] POCT-GLUCOSE [id number] 07:45:00 Test Item Value Reference Range Interpretation Comments POC-GLUCOSE METER 94 mg/dL 70-110 TESTED AT [facility] 6720 (BEAKER) (test code = [place] [address] 1538) CBC W/PLT COUNT & AUTO [id number] 05:32:00 Test Item Value Reference Range Interpretation Comments WHITE BLOOD CELL COUNT (BEAKER) 4.8 K/ L 4.0-10.0 (test code = 775) RED BLOOD CELL COUNT (BEAKER) 4.11 M/ L 4.20-5.80 L (test code = 761) HEMOGLOBIN (BEAKER) (test code = 12.7 GM/DL 13.0-16.8 L 410) HEMATOCRIT (BEAKER) (test code = 36.8 % 40.0-50.0 L 411) MEAN CORPUSCULAR VOLUME (BEAKER) 89.5 fL 82.0-98.0 (test code = 753) MEAN CORPUSCULAR HEMOGLOBIN 30.8 pg 27.0-33.0 (BEAKER) (test code = 751) MEAN CORPUSCULAR HEMOGLOBIN CONC 34.4 GM/DL 32.0-36.0 (BEAKER) (test code = 752) RED CELL DISTRIBUTION WIDTH 11.9 % 10.3-14.2 (BEAKER) (test code = 412) PLATELET COUNT (BEAKER) (test 143 K/CU MM 150-430 L code = 756) MEAN PLATELET VOLUME (BEAKER) 7.0 fL 6.5-10.5 (test code = 754) NUCLEATED RED BLOOD CELLS 0 /100 WBC 0-0 (BEAKER) (test code = 413) NEUTROPHILS RELATIVE PERCENT 74 % (BEAKER) (test code = 429) LYMPHOCYTES RELATIVE PERCENT 15 % (BEAKER) (test code = 430) MONOCYTES RELATIVE PERCENT 7 % (BEAKER) (test code = 431) EOSINOPHILS RELATIVE PERCENT 4 % (BEAKER) (test code = 432) BASOPHILS RELATIVE PERCENT 0 % (BEAKER) (test code = 437) NEUTROPHILS ABSOLUTE COUNT 3.53 K/ L 1.80-8.00 (BEAKER) (test code = 670) LYMPHOCYTES ABSOLUTE COUNT 0.72 K/ L 1.48-4.50 L (BEAKER) (test code = 414) MONOCYTES ABSOLUTE COUNT (BEAKER) 0.33 K/ L 0.00-1.30 (test code = 415) EOSINOPHILS ABSOLUTE COUNT 0.18 K/ L 0.00-0.50 (BEAKER) (test code = 416) BASOPHILS ABSOLUTE COUNT (BEAKER) 0.01 K/ L 0.00-0.20 (test code = 417) [id number] 05:27:00 Test Item Value Reference Range Interpretation Comments PHOSPHORUS (BEAKER) (test code = 3.4 mg/dL 2.3-4.7 604) [id number] 05:27:00 Test Item Value Reference Range Interpretation Comments MAGNESIUM (BEAKER) (test code = 2.0 mg/dL 1.6-2.6 627) BASIC METABOLIC [id number] 05:27:00 Test Item Value Reference Range Interpretation Comments SODIUM (BEAKER) 139 meq/L 136-145 (test code = 381) POTASSIUM (BEAKER) 4.1 meq/L 3.5-5.1 (test code = 379) CHLORIDE (BEAKER) 108 meq/L 98-107 H (test code = 382) CO2 (BEAKER) (test 23 meq/L 22-29 code = 355) BLOOD UREA NITROGEN 15 mg/dL 7-21 (BEAKER) (test code = 354) CREATININE (BEAKER) 0.85 mg/dL 0.57-1.25 (test code = 358) GLUCOSE RANDOM 105 mg/dL 70-105 (BEAKER) (test code = 652) CALCIUM (BEAKER) 8.6 mg/dL 8.4-10.2 (test code = 697) EGFR (BEAKER) (test 89 mL/min/1.73 ESTIMA ROSIE GFR IS code = 1092) sq m NOT ACCURATE CREATININE CLEARANCE IN PREDICTING GLOMERULAR FILTRATION RATE . ESTIMATED GFR I S NOT APPLICABLE FOR DIALYSIS PATIEN TS. [id number] 05:09:00 Test Item Value Reference Range Interpretation Comments PARTIAL THROMBOPLASTIN TIME 29.4 seconds 22.5-36.0 (BEAKER) (test code = 760) PROTHROMBIN [id number] 05:08:00 Test Item Value Reference Range Interpretation Comments PROTIME ([facility]) (test code = 13.6 seconds 11.7-14.7 759) INR ([facility]) (test code = 370) 1.0 <=5.9 RECOMMENDED COUMADIN/WARFARIN INR THERAPY RANGESSTANDARD DOSE: 2.0 - 3.0 Includes: PROPHYLAXIS forvenous thrombosis, systemic embolization; TREATMENT for venous thrombosis and/or pulmonary embolus.HIGH RISK: Target INR is 2.5-3.5 for patients with mechanical heart valves.POCT-GLUCOSE [id number] 18:02:00 Test Item Value Reference Range Interpretation Comments POC-GLUCOSE METER 120 mg/dL 70-110 H TESTED AT [place] [address] ([facility]) (test code = [facility] 1538) [address] POCT-GLUCOSE [id number] 12:36:00 Test Item Value Reference Range Interpretation Comments POC-GLUCOSE METER 109 mg/dL 70-110 TESTED AT [place] [address] ([facility]) (test code = [facility] 1538) [id number] POCT-GLUCOSE [id number] 07:59:00 Test Item Value Reference Range Interpretation Comments POC-GLUCOSE METER 104 mg/dL 70-110 TESTED AT [place] [address] ([facility]) (test code = [facility] 1538) [address] POCT-GLUCOSE [id number] 06:56:00 Test Item Value Reference Range Interpretation Comments POC-GLUCOSE METER 102 mg/dL 70-110 TESTED AT [place] [address] ([facility]) (test code = [facility] 1538) [id number] TROPONIN [id number] 02:03:00 Test Item Value Reference Range Interpretation Comments TROPONIN I ([facility]) (test code = 397) < ng/mL 0.00-0.03 Effective 07/06/2014: Reference Range [...] renalfailure, acidosis, acute neurological disease, and persistent tachyarrhythmia.[id number] 01:55:00 Test Item Value Reference Range Interpretation Comments MAGNESIUM (BEAKER) 2.2 mg/dL 1.6-2.6 Specimen slightly (test code = 627) hemolyzed [id number] 01:55:00 Test Item Value Reference Range Interpretation Comments PHOSPHORUS (BEAKER) 2.9 mg/dL 2.3-4.7 Specimen slightly (test code = 604) hemolyzed BASIC METABOLIC [id number] 01:55:00 Test Item Value Reference Range Interpretation Comments SODIUM (BEAKER) 141 meq/L 136-145 (test code = 381) POTASSIUM (BEAKER) 4.4 meq/L 3.5-5.1 Specimen slightly (test code = 379) hemolyzed CHLORIDE (BEAKER) 111 meq/L 98-107 H (test code = 382) CO2 (BEAKER) (test 23 meq/L 22-29 code = 355) BLOOD UREA NITROGEN 15 mg/dL 7-21 (BEAKER) (test code = 354) CREATININE (BEAKER) 1.10 mg/dL 0.57-1.25 Specimen slightly (test code = 358) hemolyzed GLUCOSE RANDOM 103 mg/dL 70-105 (BEAKER) (test code = 652) CALCIUM (BEAKER) 8.2 mg/dL 8.4-10.2 L (test code = 697) EGFR (BEAKER) (test 66 mL/min/1.73 ESTIMA ROSIE GFR IS code = 1092) sq m NOT ACCURATE CREATININE CLEARANCE IN PREDICTING GLOMERULAR FILTRATION RATE . ESTIMATED GFR I S NOT APPLICABLE FOR DIALYSIS PATIEN TS. [id number] 01:33:00 Test Item Value Reference Range Interpretation Comments PARTIAL THROMBOPLASTIN TIME 30.2 seconds 22.5-36.0 (BEAKER) (test code = 760) PROTHROMBIN [id number] 01:32:00 Test Item Value Reference Range Interpretation Comments PROTIME (BEAKER) (test code = 14.7 seconds 11.7-14.7 759) INR (BEAKER) (test code = 370) 1.2 <=5.9 RECOMMENDED COUMADIN/WARFARIN INR THERAPY RANGESSTANDARD DOSE: 2.0 - 3.0 Includes: PROPHYLAXIS forvenous thrombosis, systemic embolization; TREATMENT for venous thrombosis and/or pulmonary embolus.HIGH RISK: Target INR is 2.5-3.5 for patients with mechanical heart valves.CBC W/PLT COUNT & AUTO DIFFERENTIAL [id number] 01:23:00 Test Item Value Reference Range Interpretation Comments WHITE BLOOD CELL COUNT (BEAKER) 4.8 K/ L 4.0-10.0 (test code = 775) RED BLOOD CELL COUNT (BEAKER) 4.08 M/ L 4.20-5.80 L (test code = 761) HEMOGLOBIN (BEAKER) (test code = 13.0 GM/DL 13.0-16.8 410) HEMATOCRIT (BEAKER) (test code = 36.7 % 40.0-50.0 L 411) MEAN CORPUSCULAR VOLUME (BEAKER) 90.0 fL 82.0-98.0 (test code = 753) MEAN CORPUSCULAR HEMOGLOBIN 31.8 pg 27.0-33.0 (BEAKER) (test code = 751) MEAN CORPUSCULAR HEMOGLOBIN CONC 35.3 GM/DL 32.0-36.0 (BEAKER) (test code = 752) RED CELL DISTRIBUTION WIDTH 12.2 % 10.3-14.2 (BEAKER) (test code = 412) PLATELET COUNT (BEAKER) (test 151 K/CU MM 150-430 code = 756) MEAN PLATELET VOLUME (BEAKER) 7.3 fL 6.5-10.5 (test code = 754) NUCLEATED RED BLOOD CELLS 0 /100 WBC 0-0 (BEAKER) (test code = 413) NEUTROPHILS RELATIVE PERCENT 76 % (BEAKER) (test code = 429) LYMPHOCYTES RELATIVE PERCENT 15 % (BEAKER) (test code = 430) MONOCYTES RELATIVE PERCENT 6 % (BEAKER) (test code = 431) EOSINOPHILS RELATIVE PERCENT 3 % (BEAKER) (test code = 432) BASOPHILS RELATIVE PERCENT 0 % (BEAKER) (test code = 437) NEUTROPHILS ABSOLUTE COUNT 3.65 K/ L 1.80-8.00 (BEAKER) (test code = 670) LYMPHOCYTES ABSOLUTE COUNT 0.72 K/ L 1.48-4.50 L (BEAKER) (test code = 414) MONOCYTES ABSOLUTE COUNT (BEAKER) 0.28 K/ L 0.00-1.30 (test code = 415) EOSINOPHILS ABSOLUTE COUNT 0.13 K/ L 0.00-0.50 (AKER) (test code = 416) BASOPHILS ABSOLUTE COUNT ([facility]) 0.00 K/ L 0.00-0.20 (test code = 417) 0.00POCT-GLUCOSE [id number] 00:13:00 Test Item Value Reference Range Interpretation Comments POC-GLUCOSE METER 104 mg/dL 70-110 TESTED AT [place] [address] ([facility]) (test code = [facility] 1538) [id number] POCT-GLUCOSE [id number] 17:43:00 Test Item Value Reference Range Interpretation Comments POC-GLUCOSE METER 131 mg/dL 70-110 H TESTED AT [place] [address] ([facility]) (test code = [facility] 1538) [address] TROPONIN [id number] 17:29:00 Test Item Value Reference Range Interpretation Comments TROPONIN I ([facility]) (test code = 397) < ng/mL 0.00-0.03 Effective 07/06/2014: Reference Range [...] acidosis, acute neurological disease, and persistent tachyarrhythmia.POCT-GLUCOSE [id number] 13:05:00 Test Item Value Reference Range Interpretation Comments POC-GLUCOSE METER 94 mg/dL 70-110 TESTED AT [place] [address] ([facility]) (test code = [facility] [address] 1538) RAPID DRUG SCREEN, [id number] 09:31:00 Test Item Value Reference Range Interpretation Comments BARBITURATE URINE (BEAKER) (test Negative Negative code = 725) BENZODIAZEPINE SCREEN URINE (BEAKER) Negative Negative (test code = 726) COCAINE (METAB.) SCREEN (BEAKER) Negative Negative (test code = 1164) METHADONE SCREEN (BEAKER) (test code Negative Negative = 1436) OPIATE SCREEN URINE (BEAKER) (test Positive Negative A code = 734) CANNABINOID SCREEN URINE (BEAKER) Negative Negative (test code = 727) AMPH/METHAMPH SCREEN (BEAKER) (test Negative Negative code = 1438) PHENCYCLIDINE SCREEN URINE (BEAKER) Negative Negative (test code = 608) OXYCODONE SCREEN URINE (BEAKER) Negative Negative (test code = 2761) DRUG CUTOFF CONC.Cocaine 300 ng/mL Cannabinoid 50 ng/mL Benzodiazepine 200 ng/mLBarbiturate 200 ng/mLPhencyclidine 25 ng/mLOpiate 300 ng/mLMethadone 300 ng/mLAmphetamine/ 1000 ng/mL MethamphetamineOxycodone 300 ng/mLURINALYSIS W/ [id number] 09:29:00 Test Item Value Reference Range Interpretation Comments COLOR (BEAKER) (test code = 470) Colorless CLARITY (BEAKER) (test code = Clear 469) SPECIFIC GRAVITY UA (BEAKER) 1.050 1.001-1.035 H (test code = 468) PH UA (BEAKER) (test code = 467) 7.5 5.0-8.0 PROTEIN UA (BEAKER) (test code = Negative Negative 464) GLUCOSE UA (BEAKER) (test code = Negative Negative 365) KETONES UA (BEAKER) (test code = Negative Negative 371) BILIRUBIN UA (BEAKER) (test code Negative Negative = 462) BLOOD UA (BEAKER) (test code = Negative Negative 461) NITRITE UA (BEAKER) (test code = Negative Negative 465) LEUKOCYTE ESTERASE UA (BEAKER) Negative Negative (test code = 466) UROBILINOGEN UA (BEAKER) (test 0.2 mg/dL 0.2-1.0 code = 463) RBC UA (BEAKER) (test code = 1 /HPF 519) WBC UA (BEAKER) (test code = 1 /HPF 520) SQUAMOUS EPITHELIAL (BEAKER) < /HPF (test code = 516) SOURCE(BEAKER) (test code = Urine, [place] 6411) PLATELET AGGREGATION: FUNCTION [id number] 08:52:00 Test Item Value Reference Range Interpretation Comments WEAK ADP 13 % 60-91 L RESULT(BEAKER) (test code = 2135) PLATELET FUNCTION 0-39% indicates marked SCREEN INTERP platelet dysfunction (BEAKER) (test code = 2173) [id number] Racquel Acevedo MD (BEAKER) (test code = (electronic signature) 0548) PLATELET COUNT AGG 141 K/CU MM 150-430 L (BEAKER) (test code = 1236) TROPONIN [id number] 05:06:00 Test Item Value Reference Range Interpretation Comments TROPONIN I (BEAKER) (test code = 397) < ng/mL 0.00-0.03 Effective 07/06/2014: Reference Range [...] renalfailure, acidosis, acute neurological disease, and persistent tachyarrhythmia.[id number] 04:56:00 Test Item Value Reference Range Interpretation Comments MAGNESIUM (BEAKER) 2.0 mg/dL 1.6-2.6 Specimen slightly (test code = 627) hemolyzed [id number] 04:56:00 Test Item Value Reference Range Interpretation Comments PHOSPHORUS (BEAKER) 1.9 mg/dL 2.3-4.7 L Specimen slightly (test code = 604) hemolyzed BASIC METABOLIC [id number] 04:56:00 Test Item Value Reference Range Interpretation Comments SODIUM (BEAKER) 140 meq/L 136-145 (test code = 381) POTASSIUM (BEAKER) 4.3 meq/L 3.5-5.1 Specimen slightly (test code = 379) hemolyzed CHLORIDE (BEAKER) 109 meq/L 98-107 H (test code = 382) CO2 (BEAKER) (test 22 meq/L 22-29 code = 355) BLOOD UREA NITROGEN 19 mg/dL 7-21 (BEAKER) (test code = 354) CREATININE (BEAKER) 1.07 mg/dL 0.57-1.25 Specimen slightly (test code = 358) hemolyzed GLUCOSE RANDOM 111 mg/dL 70-105 H (BEAKER) (test code = 652) CALCIUM (BEAKER) 8.6 mg/dL 8.4-10.2 (test code = 697) EGFR (BEAKER) (test 69 mL/min/1.73 ESTIMA ROSIE GFR IS code = 1092) sq m NOT ACCURATE CREATININE CLEARANCE IN PREDICTING GLOMERULAR FILTRATION RATE . ESTIMATED GFR I S NOT APPLICABLE FOR DIALYSIS PATIEN [id number] 04:49:00 Test Item Value Reference Range Interpretation Comments COL/EPI CLOSURE TIME (BEAKER) 104 Seconds 78-191 (test code = 1801) COL/ADP CLOSURE TIME (BEAKER) 65 Seconds 43-122 (test code = 1802) PLATELET COUNT AGG (BEAKER) (test 148 K/CU MM 150-430 L code = 2656) CBC W/PLT COUNT & AUTO [id number] 04:34:00 Test Item Value Reference Range Interpretation Comments WHITE BLOOD CELL COUNT (BEAKER) 6.1 K/ L 4.0-10.0 (test code = 775) RED BLOOD CELL COUNT (BEAKER) 4.57 M/ L 4.20-5.80 (test code = 761) HEMOGLOBIN (BEAKER) (test code = 13.5 GM/DL 13.0-16.8 410) HEMATOCRIT (BEAKER) (test code = 40.9 % 40.0-50.0 411) MEAN CORPUSCULAR VOLUME (BEAKER) 89.5 fL 82.0-98.0 (test code = 753) MEAN CORPUSCULAR HEMOGLOBIN 29.6 pg 27.0-33.0 (BEAKER) (test code = 751) MEAN CORPUSCULAR HEMOGLOBIN CONC 33.1 GM/DL 32.0-36.0 (BEAKER) (test code = 752) RED CELL DISTRIBUTION WIDTH 11.9 % 10.3-14.2 (BEAKER) (test code = 412) PLATELET COUNT (BEAKER) (test 148 K/CU MM 150-430 L code = 756) MEAN PLATELET VOLUME (BEAKER) 7.2 fL 6.5-10.5 (test code = 754) NUCLEATED RED BLOOD CELLS 0 /100 WBC 0-0 (BEAKER) (test code = 413) NEUTROPHILS RELATIVE PERCENT 81 % (BEAKER) (test code = 429) LYMPHOCYTES RELATIVE PERCENT 11 % (BEAKER) (test code = 430) MONOCYTES RELATIVE PERCENT 5 % (BEAKER) (test code = 431) EOSINOPHILS RELATIVE PERCENT 2 % (BEAKER) (test code = 432) BASOPHILS RELATIVE PERCENT 0 % (BEAKER) (test code = 437) NEUTROPHILS ABSOLUTE COUNT 4.93 K/ L 1.80-8.00 (BEAKER) (test code = 670) LYMPHOCYTES ABSOLUTE COUNT 0.69 K/ L 1.48-4.50 L (BEAKER) (test code = 414) MONOCYTES ABSOLUTE COUNT (BEAKER) 0.30 K/ L 0.00-1.30 (test code = 415) EOSINOPHILS ABSOLUTE COUNT 0.14 K/ L 0.00-0.50 (BEAKER) (test code = 416) BASOPHILS ABSOLUTE COUNT (BEAKER) 0.01 K/ L 0.00-0.20 (test code = 417) 0.00
[2020-06-16 14:36] LABS: Absolute Lymphocytes (CBC) 0.7 K/uL (0.7-4.9); Basophils % 0.8 % (0-1.3); MPV 7.5 fL (7.6-11.3); RBC Red Blood Cell Count 4.26 M/uL (4.33-5.43)
[2020-06-16 14:40] LABS: ALT/SGPT 32 U/L (12-78); AST/SGOT 24 U/L (15-37); Albumin 3.6 g/dL (3.4-5.0); Alkaline Phosphatase 117 U/L (45-117); BUN Blood Urea Nitrogen 16 mg/dL (7-18); Bicarbonate 27 mmol/L (21-32); Bilirubin Direct 0.1 mg/dL (0-0.2); Bilirubin Total 0.4 mg/dL (0.2-1.0); Glucose Level 96 mg/dL (74-106); Lipase 131 U/L (73-393); NT PRO-BNP 102 pg/mL (<125); Potassium 4.1 mmol/L (3.5-5.1); Protein, Total 6.8 g/dL (6.4-8.2); Sodium Level 139 mmol/L (136-145); Troponin I < 0.02 ng/mL (0.0-0.045)
--- NOTE | 2020-06-16 15:54 | RAD REPORT ---
EXAM DESCRIPTION: CT - Abdomen Pelvis W Contrast - 06/16/2020 3:22 pm CLINICAL HISTORY: left upper abdomen/flank pain COMPARISON: Abdomen Pelvis W Contrast dated 03/20/2019 TECHNIQUE: Biphasic, helical CT imaging of the abdomen and pelvis was performed following 100 ml non -ionic IV contrast. No oral contrast administered. All CT scans are performed using dose optimization technique as appropriate and may include automated exposure control or mA/KV adjustment according to patient size. FINDINGS: No suspicious findings in the lung bases. The liver, spleen, and pancreas show no suspicious findings. Gallbladder and biliary tree are also wi thout suspicious finding. No hydronephrosis is present. There are no obstructing or nonobstructing calculi. No delayed or asymm etric function of the left kidney. No pyelonephritis or acute parenchymal process. Urinary bladder is contracted which limits assessment. No bladder calculi. No adrenal abnormalities. Prostate gland is enlarged. Attenuation in size are similar to March 2019. Stranding is seen in the anterior lower pel vis from prior inguinal hernia repair. No recurrent hernia or pelvic floor/ inguinal canal changes. No dilated bowel loops or bowel wall thickening. Diverticulosis changes are present without diverticu litis. Colon stool volume is moderate. No free air, free fluid or inflammatory stranding. No hernia, mass or bulky lymphadenopathy. IVC filter in place. No suspicious bony findings. IMPRESSION: Contrast enhanced CT abdomen and pelvis showing no acute or emergent finding. Above detailed findings are similar to March 2019
--- NOTE | 2020-06-16 16:23 | ER ---
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 Pt refused ASA/Nitro. 20g LAC. Coronavirus screen: At this time, the client does not indicate any symptoms associated with coronavirus-19. Ebola Screen: No symptoms or risks identified at this time. Initial Sepsis Screen: Does the patient meet any 2 criteria? No. Patient's initial sepsis screen is negative. Does the patient have a suspected source of infection? No. Patient's initial sepsis screen is negative. Risk Assessment: Do you want to hurt yourself or someone else? Patient reports no desire to harm self or others. Onset of symptoms was June 16, 2020. 13:47 Method Of Arrival: EMS: [facility] hb 13:47 Acuity: HILARIA 3 hb Historical: - Allergies: 13:51 Aspirin; hb 13:51 Ativan; hb 13:51 blood thinners; hb - Home Meds: 13:51 Dilantin 200mg Oral cap twice a day [Active]; Dilantin 30 mg Oral cap daily [Active]; hb ezetimibe 10 mg Oral nightly [Active]; Feosol 325 mg (65 mg iron) Oral tab daily [Active]; glucosamine sulfate 1500 every day Oral [Active]; metoprolol tartrate 25 mg Oral tab 1 tab 2 times per day [Active]; omeprazole 40 mg Oral cpDR once daily [Active]; simvastatin 80 mg Oral tab nightly [Active]; Vitamin B-12 1,000 mcg Oral tab daily [Active]; - PMHx: 13:51 Brain Bleeds x4; CVA; GERD; High Cholesterol; Hypertension; Seizures; 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 - Social history:: Smoking status: Patient denies any tobacco usage or history of. Screenin:00 Abuse screen: Denies threats or abuse. Denies injuries from another. Nutritional ss screening: No deficits noted. Tuberculosis screening: Never had TB. Fall Risk None identified. Assessment: 14:00 General: Appears in no apparent distress. comfortable, Behavior is calm, cooperative. ss Pain: Complains of pain in pain under L rib cage/ L upper quadrant Pain does not radiate. Pain currently is 2 out of 10 on a pain scale. Pain began suddenly. 14:00 Neuro: Level of Consciousness is awake, alert, obeys commands, Oriented to person, ss place, time, situation. Cardiovascular: Capillary refill < 3 seconds is brisk in bilateral fingers Patient's skin is warm and dry. Respiratory: Airway is patent Respiratory effort is even, unlabored, Respiratory pattern is regular, symmetrical. GI: Patient currently denies nausea, vomiting. EENT: Nares are clear Oral mucosa is moist. Derm: Skin is intact, is healthy with good turgor, Skin is pink, warm \T\ dry. normal. 15:10 Reassessment: Patient appears in no apparent distress at this time. No changes from ss previously documented assessment. Patient and/or family updated on plan of care and expected duration. Pain level reassessed. Patient states feeling better. Patient states symptoms have improved. 16:40 Reassessment: Patient appears in no apparent distress at this time. Patient and/or ss family updated on plan of care and expected duration. Pain level reassessed. Patient is alert, oriented x 3, equal unlabored respirations, skin warm/dry/pink. Patient states feeling better. Patient states symptoms have improved. Vital Signs: 13:47 BP 160 / 90; Pulse 64; Resp 16; Temp 98.2; Pulse Ox 96% on R/A; Weight 81.65 kg (M); hb Height 5 ft. 8 in. (172.72 cm); Pain 9/10; 14:30 BP 151 / 94; Pulse 59; Resp 15; Pulse Ox 97% ; sv 13:47 Body Mass Index 27.37 (81.65 kg, 172.72 cm) hb ED Course: 13:46 Patient arrived in ED. hb 13:49 Triage completed. hb 13:50 EKG done, by ED staff, reviewed by Case Mckay MD. 13:51 Claude Iqbal PA is PHCP. cp 13:51 Case Mckay MD is Attending Physician. 13:51 Arm band placed on. hb 13:55 Placed in gown. Bed in low position. Call light in reach. Side rails up X 1. Side rails jp3 up X2. Warm blanket given. Pillow given. Verbal reassurance given. monitor technician on. Pulse ox on. NIBP on. 14:10 Maintain EMS IV. Dressing intact. Good blood return noted. Site clean \T\ dry. Gauge \T\ keith 3 site: 20 gauge LAC. 14:10 Initial lab(s) drawn, by me, sent to lab. Patient maintains SpO2 saturation greater jp3 than 95% on room air. 14:13 Selene Moss, RN is Primary Nurse. ss 15:23 CT Abd/Pelvis - IV Contrast Only In Process Unspecified. EDMS 16:40 No provider procedures requiring assistance completed. IV discontinued, intact, ss bleeding controlled, No redness/swelling at site. Pressure dressing applied. Administered Medications: No medications were administered Outcome: 16:23 Discharge ordered by MD. cp 16:40 Discharged to home ambulatory, with family. ss 16:40 Condition: good 16:40 Discharge instructions given to patient, family, Instructed on discharge instructions, follow up and referral plans. medication usage, Demonstrated understanding of instructions, follow-up care, medications, Prescriptions given X 1. 16:41 Patient left the ED. ss Signatures: Dispatcher [employer] Frannie Melchor RN RN sv Munoz, Edgar, RN RN Selene Moss, FERN SHIRLEY Claude Iqbal PA PA cp Baxter, Heather, RN RN Sherman Johnson jp3
--- NOTE | 2020-06-16 16:24 | EDPHYS ---
Physician Documentation [facility] Name: Nelson Murillo Age: 75 yrs Sex: Male : 1945 Arrival Date: 06/16/2020 Time: 13:46 Bed 13 Private MD: ED Physician Case Mckay HPI: 06/16 13:59 This 75 yrs old Male presents to ER via EMS with complaints of Left Side cp Abdomen Pain. 13:59 Onset: The symptoms/episode began/occurred suddenly, and improved just prior to cp arrival. Associated signs and symptoms: The patient has no apparent associated signs or symptoms. Historical: - Allergies: 13:51 Aspirin; hb 13:51 Ativan; hb 13:51 blood thinners; hb - Home Meds: 13:51 Dilantin 200mg Oral cap twice a day [Active]; Dilantin 30 mg Oral cap daily [Active]; hb ezetimibe 10 mg Oral nightly [Active]; Feosol 325 mg (65 mg iron) Oral tab daily [Active]; glucosamine sulfate 1500 every day Oral [Active]; metoprolol tartrate 25 mg Oral tab 1 tab 2 times per day [Active]; omeprazole 40 mg Oral cpDR once daily [Active]; simvastatin 80 mg Oral tab nightly [Active]; Vitamin B-12 1,000 mcg Oral tab daily [Active]; - PMHx: 13:51 Brain Bleeds x4; CVA; GERD; High Cholesterol; Hypertension; Seizures; 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 - Social history:: Smoking status: Patient denies any tobacco usage or history of. ROS: 14:10 Eyes: Negative for injury, pain, redness, and discharge. cp 14:10 Constitutional: Negative for body aches, chills, fever, poor PO intake. 14:10 ENT: Negative for ear pain, sore throat, difficulty swallowing, difficulty handling secretions. 14:10 Cardiovascular: Negative for chest pain, edema, palpitations. 14:10 Respiratory: Negative for cough, shortness of breath, wheezing. 14:10 Abdomen/GI: Positive for abdominal pain, of the anterior aspect of left lateral abdomen and left upper quadrant, Negative for vomiting, diarrhea, constipation, anorexia, black/tarry stool, rectal bleeding. 14:10 Back: Negative for radiated pain. 14:10 : Negative for urinary symptoms, flank pain. 14:10 Skin: Negative for rash. 14:10 Neuro: Negative for altered mental status, headache, weakness. 14:10 All other systems are negative. Exam: 14:15 Constitutional: The patient appears in no acute distress, alert, awake, cp non-diaphoretic, non-toxic, well developed, well nourished. 14:15 Head/Face: Normocephalic, atraumatic. cp 14:15 Eyes: Periorbital structures: appear normal, Conjunctiva: normal, no exudate, no injection, Sclera: no appreciated abnormality, Lids and lashes: appear normal, bilaterally. 14:15 ENT: External ear(s): are unremarkable, Nose: is normal, Mouth: is normal, Posterior pharynx: Airway: no evidence of obstruction, patent. 14:15 Chest/axilla: Inspection: normal, Palpation: is normal, no crepitus, no tenderness. 14:15 Cardiovascular: Rate: normal, Rhythm: regular, JVD: is not appreciated. 14:15 Respiratory: the patient does not display signs of respiratory distress, Respirations: normal, no use of accessory muscles, no retractions, labored breathing, is not present, Breath sounds: are clear throughout, no decreased breath sounds, no stridor, no wheezing. 14:15 Abdomen/GI: Inspection: abdomen appears normal, Bowel sounds: active, all quadrants, Palpation: soft, in all quadrants, mild abdominal tenderness, in the anterior aspect of left lateral abdomen and left upper quadrant, rebound tenderness, is not appreciated, voluntary guarding, is not appreciated, involuntary guarding, is not appreciated. 14:15 Back: CVA tenderness, is absent. 14:15 Skin: no rash present. 14:15 Neuro: Orientation: to person, place \T\ time. Mentation: is normal, Motor: moves all fours, strength is normal. Vital Signs: 13:47 BP 160 / 90; Pulse 64; Resp 16; Temp 98.2; Pulse Ox 96% on R/A; Weight 81.65 kg (M); hb Height 5 ft. 8 in. (172.72 cm); Pain 9/10; 14:30 BP 151 / 94; Pulse 59; Resp 15; Pulse Ox 97% ; sv 13:47 Body Mass Index 27.37 (81.65 kg, 172.72 cm) hb MDM: 13:59 Patient medically screened. cp 16:00 Differential diagnosis: pneumonia UTI, kidney stone, pyelonephritis, diverticulitis, cp cardiac arrythmia, acute LA. 16:23 Data reviewed: vital signs, nurses notes, lab test result(s), EKG, radiologic studies, cp CT scan. 16:23 Test interpretation: by ED physician or midlevel provider: ECG. Response to treatment: cp the patient's symptoms have markedly improved after treatment, and as a result, I will discharge patient. Special discussion: Based on the patient's Hx, exam, and Dx evaluation, there is no indication for emergent surgery or inpatient Tx. It is understood by the patient/guardian that if the Sx's persist or worsen they need to return immediately for re-evaluation. ED course: VSS. Labs, EKG and radiology studies reviewed. EKG and labs negative for LA. Patient reported pain located left upper abdomen. Etiology of pain unclear. Will discharge to home for continued monitoring. 06/16 14:03 Order name: Basic Metabolic Panel; Complete Time: 14:44 06/16 16:10 Interpretation: Normal except: GFR 64; CA 8.4. 06/16 14:03 Order name: CBC with Diff; Complete Time: 14:44 06/16 15:58 Interpretation: Normal except: WBC 3.7; RBC 4.26; HCT 39.0; PLT 132; MPV 7.5. 06/16 14:03 Order name: Hepatic Function; Complete Time: 14:44 cp 06/16 14:03 Order name: Lipase; Complete Time: 14:44 cp 06/16 14:03 Order name: Lactate; Complete Time: 14:44 cp 06/16 14:03 Order name: Urine Microscopic Only cp 06/16 14:03 Order name: IV Saline Lock; Complete Time: 14:13 cp 06/16 14:03 Order name: Labs collected and sent; Complete Time: 14:14 cp 06/16 14:04 Order name: Troponin I; Complete Time: 14:44 cp 06/16 14:04 Order name: EKG; Complete Time: 14:04 cp 06/16 14:04 Order name: Magnesium; Complete Time: 14:44 cp 06/16 14:04 Order name: BNP; Complete Time: 14:44 cp 06/16 14:45 Order name: CT Abd/Pelvis - IV Contrast Only; Complete Time: 15:57 cp 06/16 16:17 Order name: Urine Dipstick--Ancillary (enter results) eb 06/16 14:03 Order name: Urine Dipstick-Ancillary (obtain specimen); Complete Time: 16:20 cp 06/16 14:04 Order name: EKG - Nurse/Tech; Complete Time: 14:04 cp Administered Medications: No medications were administered Disposition: 06/17 16:02 Co-signature as Attending Physician, Case Mckay MD I agree with the assessment and kdr plan of care. Disposition: 06/16/20 16:23 Discharged to Home. Impression: Upper abdominal pain, unspecified. - Condition is Stable. - Discharge Instructions: Abdominal Pain, Adult. - Prescriptions for Bentyl 20 mg Oral Tablet - take 2 tablet by ORAL route every 6 hours As needed; 40 tablet. - Medication Reconciliation Form, Thank You Letter, Antibiotic Education, Prescription Opioid Use form. - Follow up: Private Physician; When: 1 - 2 days; Reason: Recheck today's complaints. - Problem is new. - Symptoms have improved. Signatures: Dispatcher [employer] EDMS Case Mckay MD MD [facility] Selene Moss RN RN ss Claude Iqbal PA PA Asmita Lopez RN RN Corrections: (The following items were deleted from the chart) 06/16 16:10 16:09 Normal except: GFR 64. cp cp 16:41 16:23 06/16/2020 16:23 Discharged to Home. Impression: Upper abdominal pain, ss unspecified. Condition is Stable. Forms are Medication Reconciliation Form, Thank You Letter, Antibiotic Education, Prescription Opioid Use. Follow up: Private Physician; When: 1 - 2 days; Reason: Recheck today's complaints. Problem is new. Symptoms have improved. cp 06/17 12:46 06/16 13:10 Constitutional: Negative for body aches, chills, fever, poor PO intake, cp cp 06/17 12:46 06/16 13:10 Eyes: Negative for injury, pain, redness, and discharge, cp cp 06/17 12:46 06/16 13:10 ENT: Negative for ear pain, sore throat, difficulty swallowing, difficulty cp handling secretions, cp 06/17 12:46 06/16 13:10 Cardiovascular: Negative for chest pain, edema, palpitations, cp cp 06/17 12:46 06/16 13:10 Respiratory: Negative for cough, shortness of breath, wheezing, cp cp 06/17 12:46 06/16 13:10 Abdomen/GI: Positive for abdominal pain, of the anterior aspect of left cp lateral abdomen and left upper quadrant, Negative for vomiting, diarrhea, constipation, anorexia, black/tarry stool, rectal bleeding, cp 06/17 12:46 06/16 13:10 Back: Negative for radiated pain, cp cp 06/17 12:46 06/16 13:10 : Negative for urinary symptoms, flank pain, cp cp 06/17 12:46 06/16 13:10 Neuro: Negative for altered mental status, headache, weakness, cp cp 06/17 12:46 06/16 13:10 Skin: Negative for rash, cp cp 06/17 12:46 06/16 13:10 All other systems are negative, cp cp
[2020-06-16 16:27] LABS: Urine Blood NEGATIVE (NEG); Urine Glucose NEGATIVE (NEG); Urine Protein NEGATIVE (NEG)
[2020-06-16 16:42] LABS: Urine Bacteria NONE SEEN /HPF (NONE SEEN); Urine RBC NONE SEEN /HPF (NONE SEEN)
[2020-06-16 16:43] LABS: Urine Culture Reflex Order NOT NEEDED
[2020-06-16 16:55] VITALS: TEMP 98.2
[2020-06-16 16:56] VITALS: BP 151/94; O2SAT 97
--- NOTE | 2020-06-17 10:44 | EKG ---
Test Date: 2020-06-16 Test Time: 13:47:39 Insurance Administrative Assistant: JAVI MEASUREMENT RESULTS: Intervals: Rate: 60 AL: 228 QRSD: 92 QT: 412 QTc: 412 [place]: P: 47 AL: 228 QRS: 39 T: 38 INTERPRETIVE STATEMENTS: Sinus rhythm with 1st degree AV block Otherwise normal ECG Compared to ECG 09/27/2018 19:16:12 First degree AV block now present Electronically Signed On 06-17-20 10:43:37 CDT by Scott Murray
== END 2020-06-16 16:41 | disposition home or self-care (01) ==
LOC: ER 13:41
DX: R10.10 Upper abdominal pain, unspecified (principal); I10 Essential (primary) hypertension; E78.00 Pure hypercholesterolemia, unspecified; G40.909 Epilepsy, unspecified, not intractable, without status epilepticus; Z86.73 Personal history of transient ischemic attack (TIA), and cerebral infarction without residual deficits; Z88.6 Allergy status to analgesic agent; Z88.8 Allergy status to other drugs, medicaments and biological substances
CPT/HCPCS: 93005; 85025; 80048; 36415; 83735; 80076; 83605; 84484; 83690; 83880; 74177; 99285; Q9967; 81003; 81015

== ENCOUNTER 2020-07-29 07:54 | Emergency (ER) | payer OTHER ==
--- OUTSIDE RECORDS SUMMARY | 2020-07-29 07:55 | XMS REPORT | Clinical Summary ---
:1945 Author Organization [facility] Address [address] [place] [id number] Care Team Providers Name Role Phone Belkis [...] Not on file Implants Implanted Type Area Taste Tester Device Shelf Model / Identifier Expiration Serial / Date Lot Matrix Floseal Hemo W/O Ndl 10 [id number] - [id number] Cement/Fi Left: POLLARD:BIOSCI 04/18/2018 [id number] / Implanted: Qty: 1 on 12/02/2016 by Michael Alonso MD at [facility] ller/Adhe Head / sive [id number] Matrix Floseal Hemo W/O Ndl 10 [id number] - [id number] Cement/Fi Left: POLLARD:BIOSCI 05/18/2018 [id number] / Implanted: Qty: 1 on 12/25/2016 by Michael Alonso MD at [facility] ller/Adhe Head / sive [id number] Cover [place] Hole Low Prof 14mm [id number] - [id number] Fracture/ Left: RAPHAEL:RAPHAEL [id number] / Implanted: Qty: 1 on 12/02/2016 by Michael Alonso MD at [facility] Fixation Head LEIBINGER / Plt W/Tab Un3 2h [id number] - [id number] Fracture/ Left: RAPHAEL:CRAN IOMA 53- [id number] / Implanted: Qty: 2 on 12/02/2016 by Michael Alonso MD at [facility] Fixation Head XILLOFACIAL / Scr Un3 Jerome Self Drl 1.5x4mm [id number] - [id number] Fracture/ Left: RAPHAEL:CRANIOMA [id number] / Implanted: Qty: 9 on 12/02/2016 by Michael Alonso MD at [facility] Fixation Head XILLOFACIAL / Cath Bactiseal Evd 82-1745 - [id number] Neuro Left: J &J:LUCIUS & 06/18/2017 [id number] / Implanted: Qty: 1 on 12/25/2016 by Michael Alonso MD at [facility] Head SHURTLE / [id number] Results Not on fileafter 07/29/2019 Insurance Payer Benefit Plan / Subscriber ID Effective Dates Phone Addre ss Type Group MEDICARE MEDICARE A B [id number] 2009-Present Medicare AETNA - MGD CARE AETNA INDEMNITY [id number] 2012-Present Comm NON CONTR Advance Directives For more information, please contact: [phone] Code Status Date Activated Date Inactivated Comments [...]
--- OUTSIDE RECORDS SUMMARY | 2020-07-29 08:01 | XMS REPORT | Continuity of Care Document ---
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 Social History Social Habit Start Date Stop Date Quantity Comments Source Sex Assigned At [facility] Alcohol intake 2016-12-25 2016-12-25 Current [facility]ung es - 00:00:00 00:00:00 non-drinker of Medical Ce nter alcohol (finding) Alcohol Comment 2016-10-13 2016-10-13 quit in 2006 [facility] - 00:00:00 00:00:00 [facility] Center History of 1968-08-19 Current smoker [facility] Start Date Stop Date Source Former smoker 2016-12-25 00:00:00 2016-12-25 00:00:00 [facility] Medications Ordered Filled Start Stop Current Ordering [...] (test code = Normal 762) BASIC METABOLIC [id number] 07:36:00 Test Item Value Reference Range Interpretation [...] S NOT APPLICABLE FOR DIALYSIS PATIEN TS. [id number] 07:33:00 Test Item Value Reference Range Interpretation [...] is 2.5-3.5 for patients with mechanical heart valves.[id number] 16:00:00 Test Item Value Reference Range Interpretation Comments PHOSPHORUS (BEAKER) (test code = 3.6 mg/dL 2.3-4.7 604) [id number] 16:00:00 Test Item Value Reference Range Interpretation Comments MAGNESIUM (BEAKER) (test code = 2.0 mg/dL 1.6-2.6 627) BASIC METABOLIC [id number] 16:00:00 Test Item Value Reference Range Interpretation [...] PATIEN TS. CBC W/PLT COUNT & AUTO [id number] 15:02:00 Test Item Value Reference Range Interpretation [...] MORPHOLOGY (BEAKER) (test code = Normal 762) [id number] 07:21:00 Test Item Value Reference Range Interpretation [...] 2.5-3.5 for patients with mechanical heart valves.CALCIUM, [id number] 06:48:00 Test Item Value Reference Range Interpretation Comments CALCIUM IONIZED (BEAKER) (test 1.05 mmol/L 1.12-1.27 L code = 698) PH, BLOOD (BEAKER) (test code = 7.40 1810) CBC W/PLT COUNT & AUTO [id number] 13:02:00 Test Item Value Reference Range Interpretation [...] RBCS(BEAKER) (test 1+ few code = 478) [id number] 07:15:00 Test Item Value Reference Range Interpretation Comments PHOSPHORUS (BEAKER) (test code = 3.2 mg/dL 2.3-4.7 604) [id number] 07:15:00 Test Item Value Reference Range Interpretation Comments MAGNESIUM (BEAKER) (test code = 2.1 mg/dL 1.6-2.6 627) BASIC METABOLIC [id number] 07:15:00 Test Item Value Reference Range Interpretation [...] NOT APPLICABLE FOR DIALYSIS PATIEN TS. CALCIUM, [id number] 06:56:00 Test Item Value Reference Range Interpretation Comments CALCIUM IONIZED (BEAKER) (test 1.00 mmol/L 1.12-1.27 L code = 698) PH, BLOOD (BEAKER) (test code = 7.39 1810) [id number] 06:45:00 Test Item Value Reference Range Interpretation [...] 1+ few code = 478) BASIC METABOLIC [id number] 04:52:00 Test Item Value Reference Range Interpretation [...] S NOT APPLICABLE FOR DIALYSIS PATIEN TS. [id number] 04:04:00 Test Item Value Reference Range Interpretation [...] K/ L 0.00-0.20 (test code = 417) [id number] 06:23:00 Test Item Value Reference Range Interpretation Comments PHOSPHORUS (BEAKER) (test code = 3.5 mg/dL 2.3-4.7 604) [id number] 06:23:00 Test Item Value Reference Range Interpretation Comments MAGNESIUM (BEAKER) (test code = 2.1 mg/dL 1.6-2.6 627) BASIC METABOLIC [id number] 06:23:00 Test Item Value Reference Range Interpretation [...] S NOT APPLICABLE FOR DIALYSIS PATIEN TS. [id number] 05:42:00 Test Item Value Reference Range Interpretation [...] 2.5-3.5 for patients with mechanical heart valves.CALCIUM, [id number] 05:34:00 Test Item Value Reference Range Interpretation Comments CALCIUM IONIZED (BEAKER) (test 1.08 mmol/L 1.12-1.27 L code = 698) PH, BLOOD (BEAKER) (test code = 7.38 9780) CBC W/PLT COUNT & AUTO [id number] 05:27:00 Test Item Value Reference Range Interpretation [...] L 0.00-0.20 (test code = 417) 0.00CALCIUM, [id number] 05:25:00 Test Item Value Reference Range Interpretation Comments CALCIUM IONIZED (BEAKER) (test 1.06 mmol/L 1.12-1.27 L code = 698) PH, BLOOD (BEAKER) (test code = 7.42 1810) [id number] 05:10:00 Test Item Value Reference Range Interpretation Comments PHOSPHORUS (BEAKER) (test code = 3.8 mg/dL 2.3-4.7 604) [id number] 05:10:00 Test Item Value Reference Range Interpretation Comments MAGNESIUM (BEAKER) (test code = 2.0 mg/dL 1.6-2.6 627) BASIC METABOLIC [id number] 05:10:00 Test Item Value Reference Range Interpretation [...] S NOT APPLICABLE FOR DIALYSIS PATIEN TS. [id number] 05:03:00 Test Item Value Reference Range Interpretation [...] 2.5-3.5 for patients with mechanical heart valves.CALCIUM, [id number] 06:19:00 Test Item Value Reference Range Interpretation Comments CALCIUM IONIZED (BEAKER) (test 0.95 mmol/L 1.12-1.27 L code = 698) PH, BLOOD (BEAKER) (test code = 7.50 1810) CBC W/PLT COUNT & AUTO [id number] 06:16:00 Test Item Value Reference Range Interpretation [...] K/ L 0.00-0.20 (test code = 417) [id number] 06:00:00 Test Item Value Reference Range Interpretation Comments PHOSPHORUS (BEAKER) (test code = 3.6 mg/dL 2.3-4.7 604) [id number] 06:00:00 Test Item Value Reference Range Interpretation Comments MAGNESIUM (BEAKER) (test code = 2.2 mg/dL 1.6-2.6 627) BASIC METABOLIC [id number] 06:00:00 Test Item Value Reference Range Interpretation [...] S NOT APPLICABLE FOR DIALYSIS PATIEN TS. [id number] 05:49:00 Test Item Value Reference Range Interpretation [...] is 2.5-3.5 for patients with mechanical heart valves.[id number] 13:57:00 Test Item Value Reference Range Interpretation Comments FIBRINOGEN LEVEL (BEAKER) (test 347 mg/dl 225-434 code = 658) CBC W/PLT COUNT & AUTO [id number] 07:20:00 Test Item Value Reference Range Interpretation [...] 0.00-0.20 (test code = 417) 0.00BASI METABOLIC [id number] 06:11:00 Test Item Value Reference Range Interpretation [...] S NOT APPLICABLE FOR DIALYSIS PATIEN TS. [id number] 06:01:00 Test Item Value Reference Range Interpretation [...] K/ L 0.00-0.20 (test code = 417) 0.00PT/[id number] 06:09:00 Test Item Value Reference Range Interpretation [...] for patients with mechanical heart valves.BASIC METABOLIC [id number] 06:08:00 Test Item Value Reference Range Interpretation [...] PATIEN TS. CBC W/PLT COUNT & AUTO [id number] 04:02:00 Test Item Value Reference Range Interpretation [...] 0.00-0.20 (test code = 417) 0.00BASIC METABOLIC [id number] 04:01:00 Test Item Value Reference Range Interpretation [...] S NOT APPLICABLE FOR DIALYSIS PATIEN TS. [id number] 03:47:00 Test Item Value Reference Range Interpretation [...] for patients with mechanical heart valves.OCCULT BLOOD, [id number] 15:31:00 Test Item Value Reference Range Interpretation Comments FECAL OCCULT BLOOD (BEAKER) (test Negative Negative code = 618) [id number] 13:55:00 Test Item Value Reference Range Interpretation [...] exclusion of thrombosis is within 95-100% range. [id number] 13:47:00 Test Item Value Reference Range Interpretation Comments FIBRINOGEN LEVEL (BEAKER) (test 424 mg/dl 225-434 code = 658) CBC W/PLT COUNT & AUTO [id number] 06:48:00 Test Item Value Reference Range Interpretation [...] K/ L 0.00-0.20 (test code = 417) [id number] 05:05:00 Test Item Value Reference Range Interpretation Comments PARTIAL THROMBOPLASTIN TIME 51.7 seconds 22.5-36.0 H (BEAKER) (test code = 760) POCT-GLUCOSE [id number] 04:37:00 Test Item Value Reference Range Interpretation Comments POC-GLUCOSE METER 108 mg/dL 70-110 TESTED AT [facility] 6720 (BANNER) (test code = [place] 1538) [address] [id number] 22:51:00 Test Item Value Reference Range Interpretation Comments PARTIAL THROMBOPLASTIN TIME 96.1 seconds 22.5-36.0 H (BEAKER) (test code = 760) [id number] 16:04:00 Test Item Value Reference Range Interpretation Comments PARTIAL THROMBOPLASTIN TIME 93.1 seconds 22.5-36.0 H (BEAKER) (test code = 760) [id number] 06:38:00 Test Item Value Reference Range Interpretation Comments PARTIAL THROMBOPLASTIN TIME 93.0 seconds 22.5-36.0 H (BEAKER) (test code = 760) [id number] 23:08:00 Test Item Value Reference Range Interpretation Comments PARTIAL THROMBOPLASTIN TIME 56.6 seconds 22.5-36.0 H (BEAKER) (test code = 760) [id number] 18:59:00 Test Item Value Reference Range Interpretation Comments PARTIAL THROMBOPLASTIN TIME 28.6 seconds 22.5-36.0 (BEAKER) (test code = 760) PROTHROMBIN [id number] 15:38:00 Test Item Value Reference Range Interpretation Comments PROTIME (BEAKER) (test code = 13.9 seconds 11.7-14.7 759) INR (BEAKER) (test code = 370) 1.1 <=5.9 RECOMMENDED COUMADIN/WARFARIN INR THERAPY RANGESSTANDARD DOSE: 2.0 - 3.0 Includes: PROPHYLAXIS forvenous thrombosis, systemic embolization; TREATMENT for venous thrombosis and/or pulmonary embolus.HIGH RISK: Target INR is 2.5-3.5 for patients with mechanical heart valves.[id number] 12:27:00 Test Item Value Reference Range Interpretation Comments PARTIAL THROMBOPLASTIN TIME 65.9 seconds 22.5-36.0 H (BEAKER) (test code = 760) CBC W/PLT COUNT & AUTO [id number] 06:07:00 Test Item Value Reference Range Interpretation [...] 0.00-0.20 (test code = 417) 0.00BASI METABOLIC [id number] 05:49:00 Test Item Value Reference Range Interpretation [...] S NOT APPLICABLE FOR DIALYSIS PATILORE TS. [id number] 05:25:00 Test Item Value Reference Range Interpretation Comments PARTIAL THROMBOPLASTIN TIME 83.0 seconds 22.5-36.0 H (BEAKER) (test code = 760) [id number] 22:17:00 Test Item Value Reference Range Interpretation Comments PARTIAL THROMBOPLASTIN TIME 91.0 seconds 22.5-36.0 H (BEAKER) (test code = 760) [id number] 16:11:00 Test Item Value Reference Range Interpretation Comments PARTIAL THROMBOPLASTIN TIME 94.0 seconds 22.5-36.0 H (BEAKER) (test code = 760) [id number] 09:42:00 Test Item Value Reference Range Interpretation Comments PARTIAL THROMBOPLASTIN TIME 89.9 seconds 22.5-36.0 H (BEAKER) (test code = 760) [id number] 02:30:00 Test Item Value Reference Range Interpretation Comments PARTIAL THROMBOPLASTIN TIME 108.5 seconds 22.5-36.0 H (BEAKER) (test code = 760) [id number] 18:47:00 Test Item Value Reference Range Interpretation Comments PARTIAL THROMBOPLASTIN TIME 74.1 seconds 22.5-36.0 H (BEAKER) (test code = 760) [id number] 12:42:00 Test Item Value Reference Range Interpretation Comments PARTIAL THROMBOPLASTIN TIME 48.7 seconds 22.5-36.0 H (BEAKER) (test code = 760) BASIC METABOLIC [id number] 05:29:00 Test Item Value Reference Range Interpretation [...] S NOT APPLICABLE FOR DIALYSIS PATIEN TS. [id number] 05:14:00 Test Item Value Reference Range Interpretation Comments PARTIAL THROMBOPLASTIN TIME 43.1 seconds 22.5-36.0 H (BEAKER) (test code = 760) [id number] 22:32:00 Test Item Value Reference Range Interpretation Comments PARTIAL THROMBOPLASTIN TIME 42.2 seconds 22.5-36.0 H (BEAKER) (test code = 760) [id number] 15:38:00 Test Item Value Reference Range Interpretation [...] (BEAKER) (test code = 413) 0.00BASIC METABOLIC [id number] 06:35:00 Test Item Value Reference Range Interpretation [...] (BEAKER) (test code = 413) 0.00PHENYTOIN LEVEL, [id number] 06:21:00 Test Item Value Reference Range Interpretation Comments PHENYTOIN (DILANTIN) (BEAKER) (test 4.0 ug/mL 10.0-20.0 L code = 605) URINALYSIS W/ REFLEX URINE [id number] 12:57:00 Test Item Value Reference Range Interpretation [...] SOURCE(BEAKER) (test code = 2795) HEPATIC FUNCTION [id number] 12:45:00 Test Item Value Reference Range Interpretation [...] = 22 U/L 6-55 347) BASIC METABOLIC [id number] 12:45:00 Test Item Value Reference Range Interpretation [...] 0-0 (BEAKER) (test code = 413) 0.00POCT-GLUCOSE [id number] 11:53:00 Test Item Value Reference Range Interpretation Comments POC-GLUCOSE METER 117 mg/dL 70-110 H TESTED AT [facility] 6720 (BEAKER) (test code = [place] 1532) [address] CBC W/PLT COUNT & AUTO [id number] 07:10:00 Test Item Value Reference Range Interpretation [...] K/ L 0.00-0.20 (test code = 417) [id number] 15:06:00 Test Item Value Reference Range Interpretation [...] 2.5-3.5 for patients with mechanical heart valves.POCT-GLUCOSE [id number] 12:02:00 Test Item Value Reference Range Interpretation Comments POC-GLUCOSE METER 137 mg/dL 70-110 H TESTED AT [facility] 6720 (BEAKER) (test code = [place] 1538) [address] BASIC METABOLIC [id number] 05:46:00 Test Item Value Reference Range Interpretation [...] PATIEN TS. CBC W/PLT COUNT & AUTO [id number] 05:44:00 Test Item Value Reference Range Interpretation [...] L 0.00-0.20 (test code = 417) 0.00POCT-GLUCOSE [id number] 01:09:00 Test Item Value Reference Range Interpretation Comments POC-GLUCOSE METER 105 mg/dL 70-110 TESTED AT [place] [address] ([facility]) (test code = [place] 1538) [address] POCT-GLUCOSE [id number] 17:33:00 Test Item Value Reference Range Interpretation Comments POC-GLUCOSE METER 123 mg/dL 70-110 H TESTED AT [place] [address] (BEAKER) (test code = JOSE Samuels [facility] 1538) [address] POCT-GLUCOSE [id number] 12:08:00 Test Item Value Reference Range Interpretation Comments POC-GLUCOSE METER 104 mg/dL 70-110 TESTED AT [place] [id number] (BEAKER) (test code = JOSE Samuels [facility] 1538) [address] POCT-GLUCOSE [id number] 06:26:00 Test Item Value Reference Range Interpretation Comments POC-GLUCOSE METER 139 mg/dL 70-110 H TESTED AT [place] [address] (BEAKER) (test code = [facility] Arvind [facility] 1538) [address] BASIC METABOLIC [id number] 04:04:00 Test Item Value Reference Range Interpretation [...] PATIEN TS. CBC W/PLT COUNT & AUTO [id number] 03:54:00 Test Item Value Reference Range Interpretation [...] L 0.00-0.20 (test code = 417) 0.00POCT-GLUCOSE [id number] 00:30:00 Test Item Value Reference Range Interpretation Comments POC-GLUCOSE METER 106 mg/dL 70-110 TESTED AT [place] [address] ([facility]) (test code = [place] 1538) [address] POCT-GLUCOSE [id number] 17:47:00 Test Item Value Reference Range Interpretation Comments POC-GLUCOSE METER 158 mg/dL 70-110 H TESTED AT [facility] 6720 (BEAKER) (test code = JOSE [place] 1538) [address] POCT-GLUCOSE [id number] 12:41:00 Test Item Value Reference Range Interpretation Comments POC-GLUCOSE METER 184 mg/dL 70-110 H TESTED AT [facility] 6720 (BEAKER) (test code = JOSE [place] 1538) [address] BASIC METABOLIC [id number] 07:20:00 Test Item Value Reference Range Interpretation [...] PATIEN TS. CBC W/PLT COUNT & AUTO [id number] 06:56:00 Test Item Value Reference Range Interpretation [...] L 0.00-0.20 (test code = 417) 0.00POCT-GLUCOSE [id number] 06:28:00 Test Item Value Reference Range Interpretation Comments POC-GLUCOSE METER 130 mg/dL 70-110 H TESTED AT [facility] 67 ([facility]) (test code = JOSE [place] 1538) [address] POCT-GLUCOSE [id number] 00:19:00 Test Item Value Reference Range Interpretation Comments POC-GLUCOSE METER 124 mg/dL 70-110 H TESTED AT [facility] 6720 ([facility]) (test code = JOSE [place] 1538) [address] POCT-GLUCOSE [id number] 18:43:00 Test Item Value Reference Range Interpretation Comments POC-GLUCOSE METER 92 mg/dL 70-110 TESTED AT [facility] 6720 (BEAKER) (test code = [place] [address] 1538) POCT-GLUCOSE [id number] 12:34:00 Test Item Value Reference Range Interpretation Comments POC-GLUCOSE METER 176 mg/dL 70-110 H TESTED AT [facility] 6720 (BEAKER) (test code = [place] 1538) [address] CBC W/PLT COUNT & AUTO [id number] 09:33:00 Test Item Value Reference Range Interpretation [...] 0.00-0.20 (test code = 417) 0.00COMPREHENSIVE METABOLIC [id number] 08:56:00 Test Item Value Reference Range Interpretation [...] NOT APPLICABLE FOR DIALYSIS PATIEN TS. POCT-GLUCOSE [id number] 05:58:00 Test Item Value Reference Range Interpretation Comments POC-GLUCOSE METER 96 mg/dL 70-110 TESTED AT [facility] 6720 (BEAKER) (test code = [facility] [address] 1538) POCT-GLUCOSE [id number] 00:23:00 Test Item Value Reference Range Interpretation Comments POC-GLUCOSE METER 110 mg/dL 70-110 TESTED AT [place] [address] ([facility]) (test code = [facility] 1538) [address] POCT-GLUCOSE [id number] 17:48:00 Test Item Value Reference Range Interpretation Comments POC-GLUCOSE METER 100 mg/dL 70-110 TESTED AT [place] [address] ([facility]) (test code = [facility] 1538) [address] POCT-GLUCOSE [id number] 12:09:00 Test Item Value Reference Range Interpretation Comments POC-GLUCOSE METER 103 mg/dL 70-110 TESTED AT [place] [address] (BEAKER) (test code = [facility] 1538) [address] URINE [id number] 08:43:00 Test Item Value Reference Range Interpretation Comments CULTURE (BEAKER) (test code = 1095) No growth BASIC METABOLIC [id number] 06:59:00 Test Item Value Reference Range Interpretation [...] NOT APPLICABLE FOR DIALYSIS PATIEN TS. POCT-GLUCOSE [id number] 06:02:00 Test Item Value Reference Range Interpretation Comments POC-GLUCOSE METER 102 mg/dL 70-110 TESTED AT [facility] 6720 (BEAKER) (test code = [place] 1538) [address] PHENYTOIN LEVEL, [id number] 05:51:00 Test Item Value Reference Range Interpretation Comments PHENYTOIN (DILANTIN) (BEAKER) (test 7.3 ug/mL 10.0-20.0 L code = 605) CBC W/PLT COUNT & AUTO [id number] 05:41:00 Test Item Value Reference Range Interpretation [...] L 0.00-0.20 (test code = 417) 0.00POCT-GLUCOSE [id number] 03:20:00 Test Item Value Reference Range Interpretation Comments POC-GLUCOSE METER 121 mg/dL 70-110 H TESTED AT [place] [address] ([facility]ANNER) (test code = [facility] 1538) [address] POCT-GLUCOSE [id number] 18:47:00 Test Item Value Reference Range Interpretation Comments POC-GLUCOSE METER 116 mg/dL 70-110 H TESTED AT [place] [address] ([facility]NER) (test code = [facility] 1538) [address] PLATELET AGGREGATION: FUNCTION [id number] 13:09:00 Test Item Value Reference Range Interpretation Comments WEAK ADP 100 % 60-91 H RESULT(BANNER) (test code = 2135) PLATELET FUNCTION 60-100% indicates SCREEN INTERP (BANNER) normal platelet (test code = 2173) function [id number] Justin Goel MD ([facility]) (test code = (electronic signature) 1714) PLATELET COUNT AGG 181 K/CU MM 150-430 (BANNER) (test code = 3736) PHENYTOIN LEVEL, [id number] 13:01:00 Test Item Value Reference Range Interpretation Comments PHENYTOIN (DILANTIN) (BANNER) (test 8.6 ug/mL 10.0-20.0 L code = 605) POCT-GLUCOSE [id number] 12:17:00 Test Item Value Reference Range Interpretation Comments POC-GLUCOSE METER 103 mg/dL 70-110 TESTED AT [facility] 6720 (BEAKER) (test code = JOSE Samu[place] 1538) [address] POCT-GLUCOSE [id number] 06:29:00 Test Item Value Reference Range Interpretation Comments POC-GLUCOSE METER 93 mg/dL 70-110 TESTED AT [facility] 6720 (BEAKER) (test code = [place] [address] 1538) [id number] 05:36:00 Test Item Value Reference Range Interpretation Comments MAGNESIUM (BEAKER) (test code = 1.7 mg/dL 1.6-2.6 627) BASIC METABOLIC [id number] 05:36:00 Test Item Value Reference Range Interpretation [...] PATIEN TS. CBC W/PLT COUNT & AUTO [id number] 05:22:00 Test Item Value Reference Range Interpretation [...] L 0.00-0.20 (test code = 417) 0.00POCT-GLUCOSE [id number] 00:30:00 Test Item Value Reference Range Interpretation Comments POC-GLUCOSE METER 97 mg/dL 70-110 TESTED AT [place] [address] ([facility]) (test code = [place] [address] 1538) POCT-GLUCOSE [id number] 18:12:00 Test Item Value Reference Range Interpretation Comments POC-GLUCOSE METER 97 mg/dL 70-110 TESTED AT [place] [address] ([facility]) (test code = JOSE Samuels [facility] [address] 1538) PLATELET AGGREGATION: FUNCTION [id number] 13:04:00 Test Item Value Reference Range Interpretation Comments WEAK ADP 100 % 60-91 H RESULT([facility]ANNER) (test code = 2135) PLATELET FUNCTION 60-100% indicates SCREEN INTERP ([facility]NER) normal platelet (test code = 2173) function [id number] Justin Goel MD ([facility]) (test code = (electronic signature) 6921) PLATELET COUNT AGG 142 K/CU MM 150-430 L ([facility]ANNER) (test code = 2656) POCT-GLUCOSE [id number] 12:12:00 Test Item Value Reference Range Interpretation Comments POC-GLUCOSE METER 98 mg/dL 70-110 TESTED AT [place] [address] ([facility]) (test code = [facility] Arvind [facility] [address] 1538) [id number] 10:53:00 Test Item Value Reference Range Interpretation Comments D-DIMER QUANTITATIVE (BANNER) 2.83 MG/L FEU <0.50 H (test code [...] of thrombosis is within 95-100% range. THROMBIN [id number] 10:51:00 Test Item Value Reference Range Interpretation Comments THROMBIN TIME (BEAKER) (test code = 15.0 secs 13.8-20.0 550) [id number] 10:50:00 Test Item Value Reference Range Interpretation Comments FIBRINOGEN LEVEL (BEAKER) (test 462 mg/dl 225-434 H code = 658) URINALYSIS W/ [id number] 09:54:00 Test Item Value Reference Range Interpretation [...] 1583) SOURCE(BEAKER) (test code = Urine, [place] 7210) CBC W/PLT COUNT & AUTO [id number] 09:17:00 Test Item Value Reference Range Interpretation [...] 0.00-0.20 (test code = 417) 0.00PHENYTOIN LEVEL, [id number] 05:46:00 Test Item Value Reference Range Interpretation Comments PHENYTOIN (DILANTIN) (BEAKER) (test 1.1 ug/mL 10.0-20.0 L code = 605) BASIC METABOLIC [id number] 05:39:00 Test Item Value Reference Range Interpretation [...] NOT APPLICABLE FOR DIALYSIS PATIEN TS. POCT-GLUCOSE [id number] 00:45:00 Test Item Value Reference Range Interpretation Comments POC-GLUCOSE METER 93 mg/dL 70-110 TESTED AT [place] [address] ([facility]) (test code = [facility] [address] 1538) POCT-GLUCOSE [id number] 18:47:00 Test Item Value Reference Range Interpretation Comments POC-GLUCOSE METER 113 mg/dL 70-110 H TESTED AT [place] [address] ([facility]) (test code = [facility] 1538) [id number] POCT-GLUCOSE [id number] 12:26:00 Test Item Value Reference Range Interpretation Comments POC-GLUCOSE METER 125 mg/dL 70-110 H TESTED AT [place] [address] ([facility]) (test code = [facility] 1538) [address] POCT-GLUCOSE [id number] 06:19:00 Test Item Value Reference Range Interpretation Comments POC-GLUCOSE METER 128 mg/dL 70-110 H TESTED AT [place] [address] ([facility]) (test code = [facility] 1538) [id number] COMPREHENSIVE METABOLIC [id number] 04:41:00 Test Item Value Reference Range Interpretation [...] PATIEN TS. CBC W/PLT COUNT & AUTO [id number] 04:33:00 Test Item Value Reference Range Interpretation [...] L 0.00-0.20 (test code = 417) 0.00POCT-GLUCOSE [id number] 00:50:00 Test Item Value Reference Range Interpretation Comments POC-GLUCOSE METER 117 mg/dL 70-110 H TESTED AT [place] [address] ([facility]) (test code = [facility] Samuels [facility] 1538) [address] POCT-GLUCOSE [id number] 17:18:00 Test Item Value Reference Range Interpretation Comments POC-GLUCOSE METER 101 mg/dL 70-110 TESTED AT [place] [address] ([facility]) (test code = [facility] 1538) [address] POCT-GLUCOSE [id number] 12:59:00 Test Item Value Reference Range Interpretation Comments POC-GLUCOSE METER 80 mg/dL 70-110 TESTED AT [place] [address] ([facility]) (test code = [facility] Arvind [facility] [address] 1538) POCT-GLUCOSE [id number] 12:07:00 Test Item Value Reference Range Interpretation Comments POC-GLUCOSE METER 76 mg/dL 70-110 TESTED AT [place] [address] ([facility]) (test code = [facility] [address] 1538) POCT-GLUCOSE [id number] 06:18:00 Test Item Value Reference Range Interpretation Comments POC-GLUCOSE METER 86 mg/dL 70-110 TESTED AT [facility] 6720 (BEAKER) (test code = [place] [address] 1538) [id number] 06:06:00 Test Item Value Reference Range Interpretation Comments PHOSPHORUS (BEAKER) (test code = 2.8 mg/dL 2.3-4.7 604) Once on admission and Daily AM afterwardsOnce on admission and Daily AM [id number] 06:06:00 Test Item Value Reference Range Interpretation Comments MAGNESIUM (BEAKER) (test code = 1.8 mg/dL 1.6-2.6 627) Once on admission and Daily AM afterwardsOnce on admission and Daily AM afterwardsCOMPREHENSIVE METABOLIC [id number] 06:06:00 Test Item Value Reference Range Interpretation [...] Daily AM afterwardsCBC W/PLT COUNT & AUTO [id number] 06:01:00 Test Item Value Reference Range Interpretation [...] K/ L 0.00-0.20 (test code = 417) [id number] 01:40:00 Test Item Value Reference Range Interpretation Comments POTASSIUM (BEAKER) (test code = 4.0 meq/L 3.5-5.1 379) [id number] 01:40:00 Test Item Value Reference Range Interpretation Comments SODIUM (BEAKER) (test code = 381) 138 meq/L 136-145 POCT-GLUCOSE [id number] 00:19:00 Test Item Value Reference Range Interpretation Comments POC-GLUCOSE METER 89 mg/dL 70-110 TESTED AT [facility] 67 (BEAKER) (test code = [place] [address] 1538) [id number] 21:37:00 Test Item Value Reference Range Interpretation Comments SODIUM (BEAKER) (test code = 381) 137 meq/L 136-145 [id number] 19:02:00 Test Item Value Reference Range Interpretation Comments PARTIAL THROMBOPLASTIN TIME 24.9 seconds 22.5-36.0 (BEAKER) (test code = 760) PROTHROMBIN [id number] 19:01:00 Test Item Value Reference Range Interpretation Comments PROTIME (BEAKER) (test code = 13.8 seconds 11.7-14.7 759) INR (BEAKER) (test code = 370) 1.1 <=5.9 RECOMMENDED COUMADIN/WARFARIN INR THERAPY RANGESSTANDARD DOSE: 2.0 - 3.0 Includes: PROPHYLAXIS forvenous thrombosis, systemic embolization; TREATMENT for venous thrombosis and/or pulmonary embolus.HIGH RISK: Target INR is 2.5-3.5 for patients with mechanical heart valves.[id number] 19:00:00 Test Item Value Reference Range Interpretation Comments POTASSIUM (BEAKER) (test code = 4.0 meq/L 3.5-5.1 379) [id number] 19:00:00 Test Item Value Reference Range Interpretation Comments SODIUM (BEAKER) (test code = 381) 137 meq/L 136-145 HEPATIC FUNCTION [id number] 19:00:00 Test Item Value Reference Range Interpretation [...] code = 16 U/L 6-55 347) POCT-GLUCOSE [id number] 18:42:00 Test Item Value Reference Range Interpretation Comments POC-GLUCOSE METER 96 mg/dL 70-110 TESTED AT [facility] 67 (BEAKER) (test code = JOSE Samuels [facility] [address] 1538) PLATELET AGGREGATION: FUNCTION [id number] 11:40:00 Test Item Value Reference Range Interpretation Comments WEAK ADP 50 % 60-91 L RESULT(BEAKER) (test code = 2135) PLATELET FUNCTION 50-59% indicates mild SCREEN INTERP platelet dysfunction (BEAKER) (test code = 2173) [id number] Justin Goel MD (BEAKER) (test code = (electronic signature) 8901) PLATELET COUNT AGG 124 K/CU MM 150-430 L (BEAKER) (test code = 2656) [id number] 05:44:00 Test Item Value Reference Range Interpretation Comments PHOSPHORUS (BEAKER) (test code = 3.1 mg/dL 2.3-4.7 604) [id number] 05:44:00 Test Item Value Reference Range Interpretation Comments MAGNESIUM (BEAKER) (test code = 1.9 mg/dL 1.6-2.6 627) COMPREHENSIVE METABOLIC [id number] 05:44:00 Test Item Value Reference Range Interpretation [...] PATIEN TS. CBC W/PLT COUNT & AUTO [id number] 05:29:00 Test Item Value Reference Range Interpretation [...] code = 417) 0.00URINALYSIS W/ REFLEX URINE [id number] 22:30:00 Test Item Value Reference Range Interpretation [...] (test code = 2795) TSH/FREE T4 IF [id number] 14:45:00 Test Item Value Reference Range Interpretation Comments THYROID STIMULATING HORMONE 2.66 uIU/mL 0.35-4.94 (BEAKER) (test code = 772) VITAMIN B12 AND [id number] 14:45:00 Test Item Value Reference Range Interpretation Comments VITAMIN B12 (BEAKER) (test code = 815 pg/mL 213-816 774) FOLATE (BEAKER) (test code = 362) 15.4 ng/mL >=7.0 Effective 07/06/2014: Folate Reference Range ChangeNew: >=7.0 Previous: >=5.4VALPROIC ACID LEVEL, [id number] 14:18:00 Test Item Value Reference Range Interpretation Comments VALPROIC ACID TOTAL (BEAKER) (test 24 ug/mL 50-100 L code = 924) Therapeutic range for some clinical conditions may be >100 ug/mLAMMONIA 2016-12-23 14:02:00 Test Item Value Reference Range Interpretation Comments AMMONIA (BEAKER) (test code = 348) 35 mol/L 18-72 BLOOD GAS, [id number] 13:50:00 Test Item Value Reference Range Interpretation [...] (BEAKER) (test code = 1819) 21.0 % [id number] 10:49:00 Test Item Value Reference Range Interpretation [...] 2.5-3.5 for patients with mechanical heart valves.PROTHROMBIN [id number] 10:48:00 Test Item Value Reference Range Interpretation Comments PROTIME (BEAKER) (test code = 14.7 seconds 11.7-14.7 759) INR (BEAKER) (test code = 370) 1.2 <=5.9 RECOMMENDED COUMADIN/WARFARIN INR THERAPY RANGESSTANDARD DOSE: 2.0 - 3.0 Includes: PROPHYLAXIS forvenous thrombosis, systemic embolization; TREATMENT for venous thrombosis and/or pulmonary embolus.HIGH RISK: Target INR is 2.5-3.5 for patients with mechanical heart valves.POCT-GLUCOSE [id number] 07:47:00 Test Item Value Reference Range Interpretation Comments POC-GLUCOSE METER 95 mg/dL 70-110 TESTED AT [facility] 6720 (BEAKER) (test code = [place] [address] 1538) BASIC METABOLIC [id number] 04:59:00 Test Item Value Reference Range Interpretation [...] PATIEN TS. CBC W/PLT COUNT & AUTO [id number] 04:49:00 Test Item Value Reference Range Interpretation [...] L 0.00-0.20 (test code = 417) 0.00POCT-GLUCOSE [id number] 04:02:00 Test Item Value Reference Range Interpretation Comments POC-GLUCOSE METER 114 mg/dL 70-110 H TESTED AT [facility] 6720 ([facility]) (test code = [facility] 1538) [address] POCT-GLUCOSE [id number] 07:17:00 Test Item Value Reference Range Interpretation Comments POC-GLUCOSE METER 134 mg/dL 70-110 H TESTED AT [facility] 67 ([facility]) (test code = [facility] 1538) [address] BASIC METABOLIC [id number] 03:52:00 Test Item Value Reference Range Interpretation [...] S NOT APPLICABLE FOR DIALYSIS PATIEN TS. [id number] 03:34:00 Test Item Value Reference Range Interpretation Comments MAGNESIUM (BEAKER) 2.1 mg/dL 1.6-2.6 Specimen slightly (test code = 627) hemolyzed [id number] 03:34:00 Test Item Value Reference Range Interpretation Comments PHOSPHORUS (BEAKER) 2.5 mg/dL 2.3-4.7 Specimen slightly (test code = 604) hemolyzed CBC W/PLT COUNT & AUTO [id number] 03:20:00 Test Item Value Reference Range Interpretation [...] L 0.00-0.20 (test code = 417) 0.00POCT-GLUCOSE [id number] 02:04:00 Test Item Value Reference Range Interpretation Comments POC-GLUCOSE METER 126 mg/dL 70-110 H TESTED AT [place] [address] ([facility]) (test code = [facility] Arvind [facility] 1538) [address] POCT-GLUCOSE [id number] 00:58:00 Test Item Value Reference Range Interpretation Comments POC-GLUCOSE METER 145 mg/dL 70-110 H TESTED AT [place] [address] ([facility]) (test code = [facility] 1538) [address] POCT-GLUCOSE [id number] 18:36:00 Test Item Value Reference Range Interpretation Comments POC-GLUCOSE METER 127 mg/dL 70-110 H TESTED AT [place] [address] ([facility]) (test code = [facility] 1538) [address] PLATELET AGGREGATION: FUNCTION [id number] 09:33:00 Test Item Value Reference Range Interpretation Comments WEAK ADP 53 % 60-91 L RESULT(BEAKER) (test code = 2135) PLATELET FUNCTION 50-59% indicates mild SCREEN INTERP platelet dysfunction (BEAKER) (test code = 2173) [id number] Teja Ferreira M.D. ([facility]) (test code = (electonic signature) 3347) PLATELET COUNT AGG 120 K/CU MM 150-430 L (BEAKER) (test code = 3706) [id number] 04:59:00 Test Item Value Reference Range Interpretation Comments MAGNESIUM (BEAKER) 2.1 mg/dL 1.6-2.6 Specimen slightly (test code = 627) hemolyzed Once on admission and Daily AM afterwardsOnce on admission and Daily AM afterwardsOnce on admission and Daily AM [id number] 04:59:00 Test Item Value Reference Range Interpretation [...] Specimen slightly (test code = 347) hemolyzed [id number] 22:52:00 Test Item Value Reference Range Interpretation [...] patients with mechanical heart valves.VALPROIC ACID LEVEL, [id number] 20:34:00 Test Item Value Reference Range Interpretation Comments VALPROIC ACID TOTAL (BEAKER) (test 19 ug/mL 50-100 L code = 924) Therapeutic range for some clinical conditions may be >100 ug/mLCREATINE KINASE (CK), TOTAL AND [id number] 10:02:00 Test Item Value Reference Range Interpretation Comments CREATINE KINASE TOTAL (BEAKER) 106 U/L 29-200 (test code = 380) CREATINE KINASE-MB (BEAKER) (test 1.4 ng/mL 0.0-6.6 code = 750) CREATINE KINASE-MB INDEX (BEAKER) 1.3 % (test code = 395) Effective 07/06/2014: CK-MB Reference Range ChangeNew: 0.0-6.6 Previous: 0.0-4.9CK-MB Reference Range:<6.7 Normal6.7-10.0 Borderline>10.0 AbnormalTROPONIN [id number] 10:00:00 Test Item Value Reference Range Interpretation [...] Previous: 0.0-4.9CK-MB Reference Range:<6.7 Normal6.7-10.0 Borderline>10.0 AbnormalTROPONIN [id number] 00:05:00 Test Item Value Reference Range Interpretation [...] Previous: 0.0-4.9CK-MB Reference Range:<6.7 Normal6.7-10.0 Borderline>10.0 AbnormalTROPONIN [id number] 18:06:00 Test Item Value Reference Range Interpretation [...] acute neurological disease, and persistent tachyarrhythmia.COMPREHENSIVE METABOLIC [id number] 18:03:00 Test Item Value Reference Range Interpretation [...] PATIEN TS. CBC W/PLT COUNT & AUTO [id number] 17:43:00 Test Item Value Reference Range Interpretation [...] K/ L 0.00-0.20 (test code = 417) [id number] 05:44:00 Test Item Value Reference Range Interpretation Comments MAGNESIUM (BEAKER) (test code = 2.0 mg/dL 1.6-2.6 627) [id number] 11:00:00 Test Item Value Reference Range Interpretation Comments RPR SCREEN (BEAKER) (test code = Nonreactive Nonreactive 420) HEMOGLOBIN [id number] 10:35:00 Test Item Value Reference Range Interpretation Comments HEMOGLOBIN A1C (BEAKER) (test code = 5.1 % 4.3-6.1 368) CBC W/PLT COUNT & AUTO [id number] 07:10:00 Test Item Value Reference Range Interpretation [...] L 0.00-0.20 (test code = 417) 0.00VITAMIN [id number] 06:57:00 Test Item Value Reference Range Interpretation Comments VITAMIN B12 (BEAKER) (test code = 584 pg/mL 213-816 774) TSH/FREE T4 IF [id number] 06:57:00 Test Item Value Reference Range Interpretation Comments THYROID STIMULATING HORMONE 0.98 uIU/mL 0.35-4.94 (BEAKER) (test code = 772) [id number] 06:15:00 Test Item Value Reference Range Interpretation Comments MAGNESIUM (BEAKER) (test code = 2.1 mg/dL 1.6-2.6 627) COMPREHENSIVE METABOLIC [id number] 06:15:00 Test Item Value Reference Range Interpretation [...] 347) EGFR (BEAKER) (test 76 mL/min/1.73 ESTIMA ORSIE GFR IS code = 1092) sq m NOT ACCURATE CREATININE CLEARANCE IN PREDICTING GLOMERULAR FILTRATION RATE . ESTIMATED GFR I S NOT APPLICABLE FOR DIALYSIS PATIEN TS. BASIC METABOLIC [id number] 06:15:00 Test Item Value Reference Range Interpretation [...] NOT APPLICABLE FOR DIALYSIS PATIEN TS. LIPID [id number] 06:15:00 Test Item Value Reference Range Interpretation [...] 130-159 High 160-189 Very High >=190BASIC METABOLIC [id number] 05:07:00 Test Item Value Reference Range Interpretation [...] PATIEN TS. CBC W/PLT COUNT & AUTO [id number] 05:00:00 Test Item Value Reference Range Interpretation [...] 0.00-0.20 (test code = 417) 0.00BASIC METABOLIC [id number] 19:13:00 Test Item Value Reference Range Interpretation [...] PATIEN TS. CBC W/PLT COUNT & AUTO [id number] 19:08:00 Test Item Value Reference Range Interpretation [...] L 0.00-0.20 (test code = 417) 0.00POCT-GLUCOSE [id number] 14:07:00 Test Item Value Reference Range Interpretation Comments POC-GLUCOSE METER 99 mg/dL 70-110 TESTED AT [place] [address] ([facility]) (test code = [facility]uels [facility] [address] 1538) POCT-GLUCOSE [id number] 13:05:00 Test Item Value Reference Range Interpretation Comments POC-GLUCOSE METER 115 mg/dL 70-110 H TESTED AT [place] [address] ([facility]) (test code = [facility] 1538) [address] POCT-GLUCOSE [id number] 07:34:00 Test Item Value Reference Range Interpretation Comments POC-GLUCOSE METER 145 mg/dL 70-110 H TESTED AT [facility] 6720 (BEAKER) (test code = [place] 1538) [address] [id number] 06:56:00 Test Item Value Reference Range Interpretation Comments PHOSPHORUS (BEAKER) (test code = 3.3 mg/dL 2.3-4.7 604) [id number] 06:56:00 Test Item Value Reference Range Interpretation Comments MAGNESIUM (BEAKER) (test code = 1.9 mg/dL 1.6-2.6 627) BASIC METABOLIC [id number] 06:56:00 Test Item Value Reference Range Interpretation [...] PATIEN TS. CBC W/PLT COUNT & AUTO [id number] 06:34:00 Test Item Value Reference Range Interpretation [...] K/ L 0.00-0.20 (test code = 417) [id number] 06:29:00 Test Item Value Reference Range Interpretation Comments PARTIAL THROMBOPLASTIN TIME 30.9 seconds 22.5-36.0 (BEAKER) (test code = 760) PROTHROMBIN [id number] 06:28:00 Test Item Value Reference Range Interpretation Comments PROTIME (BEAKER) (test code = 14.0 seconds 11.7-14.7 759) INR (BEAKER) (test code = 370) 1.1 <=5.9 RECOMMENDED COUMADIN/WARFARIN INR THERAPY RANGESSTANDARD DOSE: 2.0 - 3.0 Includes: PROPHYLAXIS forvenous thrombosis, systemic embolization; TREATMENT for venous thrombosis and/or pulmonary embolus.HIGH RISK: Target INR is 2.5-3.5 for patients with mechanical heart valves.POCT-GLUCOSE [id number] 05:42:00 Test Item Value Reference Range Interpretation Comments POC-GLUCOSE METER 90 mg/dL 70-110 TESTED AT [place] [address] ([facility]) (test code = [facility] [address] 1538) POCT-GLUCOSE [id number] 23:43:00 Test Item Value Reference Range Interpretation Comments POC-GLUCOSE METER 118 mg/dL 70-110 H TESTED AT [place] [address] ([facility]) (test code = [facility] 1538) [address] POCT-GLUCOSE [id number] 17:19:00 Test Item Value Reference Range Interpretation Comments POC-GLUCOSE METER 127 mg/dL 70-110 H TESTED AT [place] [address] ([facility]) (test code = [facility] 1538) [address] POCT-GLUCOSE [id number] 12:30:00 Test Item Value Reference Range Interpretation Comments POC-GLUCOSE METER 103 mg/dL 70-110 TESTED AT [place] [address] ([facility]) (test code = [facility] 1538) [address] POCT-GLUCOSE [id number] 09:52:00 Test Item Value Reference Range Interpretation Comments POC-GLUCOSE METER 137 mg/dL 70-110 H TESTED AT [place] [address] ([facility]) (test code = [facility] 1538) [address] CBC W/PLT COUNT & AUTO [id number] 06:43:00 Test Item Value Reference Range Interpretation Comments WHITE BLOOD CELL COUNT (BANNER) 4.9 K/ L 4.0-10.0 (test code = 775) RED BLOOD CELL COUNT (BANNER) 4.36 M/ L 4.20-5.80 (test code = 761) HEMOGLOBIN (BANNER) (test code = 13.2 GM/DL 13.0-16.8 410) HEMATOCRIT (BANNER) (test code = 39.1 % 40.0-50.0 L 411) MEAN CORPUSCULAR VOLUME (BANNER) 89.8 fL 82.0-98.0 (test code = 753) [...] K/ L 0.00-0.20 (test code = 417) [id number] 06:39:00 Test Item Value Reference Range Interpretation Comments PHOSPHORUS (BEAKER) (test code = 3.2 mg/dL 2.3-4.7 604) [id number] 06:39:00 Test Item Value Reference Range Interpretation Comments MAGNESIUM (BEAKER) (test code = 1.9 mg/dL 1.6-2.6 627) BASIC METABOLIC [id number] 06:39:00 Test Item Value Reference Range Interpretation [...] NOT APPLICABLE FOR DIALYSIS PATIEN TS. PROTHROMBIN [id number] 06:31:00 Test Item Value Reference Range Interpretation Comments PROTIME (BEAKER) (test code = 13.7 seconds 11.7-14.7 759) INR (BEAKER) (test code = 370) 1.1 <=5.9 RECOMMENDED COUMADIN/WARFARIN INR THERAPY RANGESSTANDARD DOSE: 2.0 - 3.0 Includes: PROPHYLAXIS forvenous thrombosis, systemic embolization; TREATMENT for venous thrombosis and/or pulmonary embolus.HIGH RISK: Target INR is 2.5-3.5 for patients with mechanical heart valves.[id number] 06:31:00 Test Item Value Reference Range Interpretation Comments PARTIAL THROMBOPLASTIN TIME 30.3 seconds 22.5-36.0 (BEAKER) (test code = 760) POCT-GLUCOSE [id number] 21:46:00 Test Item Value Reference Range Interpretation Comments POC-GLUCOSE METER 97 mg/dL 70-110 TESTED AT [facility] 6720 (BANNER) (test code = [facility] [address] 1538) POCT-GLUCOSE [id number] 12:19:00 Test Item Value Reference Range Interpretation Comments POC-GLUCOSE METER 118 mg/dL 70-110 H TESTED AT [facility] 6720 (BANNER) (test code = [facility] 1538) [address] POCT-GLUCOSE [id number] 08:50:00 Test Item Value Reference Range Interpretation Comments POC-GLUCOSE METER 135 mg/dL 70-110 H TESTED AT [facility] 6720 (BEAKER) (test code = [place] 1538) [address] POCT-GLUCOSE [id number] 07:45:00 Test Item Value Reference Range Interpretation Comments POC-GLUCOSE METER 94 mg/dL 70-110 TESTED AT [facility] 6720 (BEAKER) (test code = [place] [address] 1538) CBC W/PLT COUNT & AUTO [id number] 05:32:00 Test Item Value Reference Range Interpretation [...] K/ L 0.00-0.20 (test code = 417) [id number] 05:27:00 Test Item Value Reference Range Interpretation Comments PHOSPHORUS (BEAKER) (test code = 3.4 mg/dL 2.3-4.7 604) [id number] 05:27:00 Test Item Value Reference Range Interpretation Comments MAGNESIUM (BEAKER) (test code = 2.0 mg/dL 1.6-2.6 627) BASIC METABOLIC [id number] 05:27:00 Test Item Value Reference Range Interpretation [...] S NOT APPLICABLE FOR DIALYSIS PATIEN TS. [id number] 05:09:00 Test Item Value Reference Range Interpretation Comments PARTIAL THROMBOPLASTIN TIME 29.4 seconds 22.5-36.0 (BEAKER) (test code = 760) PROTHROMBIN [id number] 05:08:00 Test Item Value Reference Range Interpretation Comments PROTIME (BANNER) (test code = 13.6 seconds 11.7-14.7 759) INR (BANNER) (test code = 370) 1.0 <=5.9 RECOMMENDED COUMADIN/WARFARIN INR THERAPY RANGESSTANDARD DOSE: 2.0 - 3.0 Includes: PROPHYLAXIS forvenous thrombosis, systemic embolization; TREATMENT for venous thrombosis and/or pulmonary embolus.HIGH RISK: Target INR is 2.5-3.5 for patients with mechanical heart valves.POCT-GLUCOSE [id number] 18:02:00 Test Item Value Reference Range Interpretation Comments POC-GLUCOSE METER 120 mg/dL 70-110 H TESTED AT [place] [address] ([facility]) (test code = JO[facility] Samuels [facility] 1538) [address] POCT-GLUCOSE [id number] 12:36:00 Test Item Value Reference Range Interpretation Comments POC-GLUCOSE METER 109 mg/dL 70-110 TESTED AT [place] [address] ([facility]) (test code = JO[facility] Samuels [facility] 1538) [address] POCT-GLUCOSE [id number] 07:59:00 Test Item Value Reference Range Interpretation Comments POC-GLUCOSE METER 104 mg/dL 70-110 TESTED AT [place] [address] ([facility]) (test code = [facility] Samuels [facility] 1538) [address] POCT-GLUCOSE [id number] 06:56:00 Test Item Value Reference Range Interpretation Comments POC-GLUCOSE METER 102 mg/dL 70-110 TESTED AT [place] [address] ([facility]) (test code = [facility] Samuels [facility] 1538) [address] TROPONIN [id number] 02:03:00 Test Item Value Reference Range Interpretation Comments TROPONIN I (BANNER) (test code = 397) < ng/mL 0.00-0.03 [...] renalfailure, acidosis, acute neurological disease, and persistent tachyarrhythmia.[id number] 01:55:00 Test Item Value Reference Range Interpretation Comments MAGNESIUM (BEAKER) 2.2 mg/dL 1.6-2.6 Specimen slightly (test code = 627) hemolyzed [id number] 01:55:00 Test Item Value Reference Range Interpretation Comments PHOSPHORUS (BEAKER) 2.9 mg/dL 2.3-4.7 Specimen slightly (test code = 604) hemolyzed BASIC METABOLIC [id number] 01:55:00 Test Item Value Reference Range Interpretation [...] S NOT APPLICABLE FOR DIALYSIS PATIEN TS. [id number] 01:33:00 Test Item Value Reference Range Interpretation Comments PARTIAL THROMBOPLASTIN TIME 30.2 seconds 22.5-36.0 (BEAKER) (test code = 760) PROTHROMBIN [id number] 01:32:00 Test Item Value Reference Range Interpretation [...] (test code = 416) BASOPHILS ABSOLUTE COUNT (BANNER) 0.00 K/ L 0.00-0.20 (test code = 417) 0.00POCT-GLUCOSE [id number] 00:13:00 Test Item Value Reference Range Interpretation Comments POC-GLUCOSE METER 104 mg/dL 70-110 TESTED AT [place] [address] ([facility]) (test code = [facility] 1538) [address] POCT-GLUCOSE [id number] 17:43:00 Test Item Value Reference Range Interpretation Comments POC-GLUCOSE METER 131 mg/dL 70-110 H TESTED AT [place] [address] ([facility]) (test code = [facility] 1538) [address] TROPONIN [id number] 17:29:00 Test Item Value Reference Range Interpretation Comments TROPONIN I (BANNER) (test code = 397) < ng/mL 0.00-0.03 [...] acidosis, acute neurological disease, and persistent tachyarrhythmia.POCT-GLUCOSE [id number] 13:05:00 Test Item Value Reference Range Interpretation Comments POC-GLUCOSE METER 94 mg/dL 70-110 TESTED AT [place] [address] ([facility]) (test code = [facility] 10068 1538) RAPID DRUG SCREEN, [id number] 09:31:00 Test Item Value Reference Range Interpretation [...] ng/mLAmphetamine/ 1000 ng/mL MethamphetamineOxycodone 300 ng/mLURINALYSIS W/ [id number] 09:29:00 Test Item Value Reference Range Interpretation [...] 516) SOURCE(BEAKER) (test code = Urine, [place] 9387) PLATELET AGGREGATION: FUNCTION [id number] 08:52:00 Test Item Value Reference Range Interpretation Comments WEAK ADP 13 % 60-91 L RESULT(BEAKER) (test code = 2135) PLATELET FUNCTION 0-39% indicates marked SCREEN INTERP platelet dysfunction (BEAKER) (test code = 2173) [id number] Racquel Acevedo MD (BEAKER) (test code = (electronic signature) 9646) PLATELET COUNT AGG 141 K/CU MM 150-430 L (BEAKER) (test code = 0156) TROPONIN [id number] 05:06:00 Test Item Value Reference Range Interpretation [...] renalfailure, acidosis, acute neurological disease, and persistent tachyarrhythmia.[id number] 04:56:00 Test Item Value Reference Range Interpretation Comments MAGNESIUM (BEAKER) 2.0 mg/dL 1.6-2.6 Specimen slightly (test code = 627) hemolyzed [id number] 04:56:00 Test Item Value Reference Range Interpretation Comments PHOSPHORUS (BEAKER) 1.9 mg/dL 2.3-4.7 L Specimen slightly (test code = 604) hemolyzed BASIC METABOLIC [id number] 04:56:00 Test Item Value Reference Range Interpretation [...] I S NOT APPLICABLE FOR DIALYSIS PATIEN [id number] 04:49:00 Test Item Value Reference Range Interpretation Comments COL/EPI CLOSURE TIME (BEAKER) 104 Seconds 78-191 (test code = 1801) COL/ADP CLOSURE TIME (BEAKER) 65 Seconds 43-122 (test code = 1802) PLATELET COUNT AGG (BEAKER) (test 148 K/CU MM 150-430 L code = 2656) CBC W/PLT COUNT & AUTO [id number] 04:34:00 Test Item Value Reference Range Interpretation [...]
--- NOTE | 2020-07-29 08:37 | RAD REPORT ---
EXAM DESCRIPTION: CT - Head C Spine Mpr Wo Con - 07/29/2020 8:27 am CLINICAL HISTORY: Head and neck injury status post fall. Head and neck pain COMPARISON: 2019 TECHNIQUE: Computed axial tomography of the head and cervical spine was obtained. Sagittal and coronal reconstruction was performed. All CT scans are performed using dose optimization technique as appropriate and may include automated exposure control or mA/KV adjustment according to patient size. FINDINGS: Postsurgical changes involve the skull. An acute intracranial bleed is not seen. The ventricles are normal in caliber. An extra-axial fluid c ollection is not noted.Fluid within the visualized sinuses and mastoids is not seen A cervical fracture is not visualized. No dislocation is noted. Spondylosis involves the cervical spi ne IMPRESSION: No acute intracranial abnormality is seen. A cervical fracture is not visualized. If the patient continues to have symptoms to suggest intracra nial /spinal cord pathology then MRI would be recommended
--- NOTE | 2020-07-29 09:28 | EDPHYS ---
Physician Documentation [facility] Name: Nelson Murillo Age: 75 yrs Sex: Male : 1945 Arrival Date: 07/29/2020 Time: 07:55 Bed 5 Private MD: ED Physician Case Mckay HPI: 07/29 18:20 This 75 yrs old Male presents to ER via Wheelchair with complaints of Fall kdr Injury, Headache, Neck Pain, <24hrs Old. 18:20 Details of fall: The patient fell from an upright position, while walking. Onset: The kdr symptoms/episode began/occurred suddenly, just prior to arrival. Associated injuries: The patient sustained injury to the head. Severity of symptoms: At their worst the symptoms were very mild, in the emergency department the symptoms are unchanged. The patient has experienced similar episodes in the past, a few times. The patient has not recently seen a physician. 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 - Social history:: Smoking status: Patient denies any tobacco usage or history of. ROS: 18:20 Constitutional: Negative for fever, chills, and weight loss, Eyes: Negative for injury, kdr pain, redness, and discharge, ENT: Negative for injury, pain, and discharge, Neck: Negative for injury, pain, and swelling, Cardiovascular: Negative for chest pain, palpitations, and edema, Respiratory: Negative for shortness of breath, cough, wheezing, and pleuritic chest pain, Abdomen/GI: Negative for abdominal pain, nausea, vomiting, diarrhea, and constipation, Back: Negative for injury and pain, : Negative for injury, bleeding, discharge, and swelling, MS/Extremity: Negative for injury and deformity, Skin: Negative for injury, rash, and discoloration, Neuro: Negative for headache, weakness, numbness, tingling, and seizure activity. Psych: Negative for depression, anxiety, suicide ideation, homicidal ideation, and hallucinations, Allergy/Immunology: Negative for hives, rash, and allergies, Endocrine: Negative for neck swelling, polydipsia, polyuria, polyphagia, and marked weight changes, Hematologic/Lymphatic: Negative for swollen nodes, abnormal bleeding, and unusual bruising. Exam: 18:20 Constitutional: This is a well developed, well nourished patient who is awake, alert, kdr and in no acute distress. Eyes: Pupils equal round and reactive to light, extra-ocular motions intact. Lids and lashes normal. Conjunctiva and sclera are non-icteric and not injected. Cornea within normal limits. Periorbital areas with no swelling, redness, or edema. ENT: Nares patent. No nasal discharge, no septal abnormalities noted. Tympanic membranes are normal and external auditory canals are clear. Oropharynx with no redness, swelling, or masses, exudates, or evidence of obstruction, uvula midline. Mucous membranes moist. Neck: Trachea midline, no thyromegaly or masses palpated, and no cervical lymphadenopathy. Supple, full range of motion without nuchal rigidity, or vertebral point tenderness. No Meningismus. Chest/axilla: Normal chest wall appearance and motion. Nontender with no deformity. No lesions are appreciated. Cardiovascular: Regular rate and rhythm with a normal S1 and S2. No gallops, murmurs, or rubs. Normal PMI, no JVD. No pulse deficits. Respiratory: Lungs have equal breath sounds bilaterally, clear to auscultation and percussion. No rales, rhonchi or wheezes noted. No increased work of breathing, no retractions or nasal flaring. Abdomen/GI: Soft, non-tender, with normal bowel sounds. No distension or tympany. No guarding or rebound. No evidence of tenderness throughout. Back: No spinal tenderness. No costovertebral tenderness. Full range of motion. Skin: Warm, dry with normal turgor. Normal color with no rashes, no lesions, and no evidence of cellulitis. MS/ Extremity: Pulses equal, no cyanosis. Neurovascular intact. Full, normal range of motion. Neuro: Awake and alert, GCS 15, oriented to person, place, time, and situation. Cranial nerves II-XII grossly intact. Motor strength 5/5 in all extremities. Sensory grossly intact. Cerebellar exam normal. Normal gait. Psych: Awake, alert, with orientation to person, place and time. Behavior, mood, and affect are within normal limits. 18:20 Head/face: Noted is no obvious of injury or deformity except contusion, that is superficial, of the forehead, hematoma, that is mild, of the forehead. Vital Signs: 08:10 BP 160 / 108; Pulse 64; Resp 18; Temp 98.1; Pulse Ox 100% on R/A; Weight 86.18 kg; em Height 5 ft. 8 in. (172.72 cm); Pain 10/10; 09:30 BP 148 / 88; Pulse 62; Resp 16; Pulse Ox 98% ; hb 08:10 Body Mass Index 28.89 (86.18 kg, 172.72 cm) em MDM: 09:27 Patient medically screened. kdr 18:20 Data reviewed: vital signs, nurses notes, lab test result(s), radiologic studies. kdr Counseling: I had a detailed discussion with the patient and/or guardian regarding: the historical points, exam findings, and any diagnostic results supporting the discharge/admit diagnosis, lab results, radiology results, the need for outpatient follow up. 07/29 08:15 Order name: CT Head C Spine; Complete Time: 09:23 kdr Administered Medications: No medications were administered Disposition: 07/29/20 09:27 Discharged to Home. Impression: Other slipping, tripping and stumbling and falls, Superficial injury of head, Contusion of other part of head - left forehead. - Condition is Stable. - Discharge Instructions: Head Injury, Adult, [id number]. - Medication Reconciliation Form, Thank You Letter form. - Follow up: Private Physician; When: 2 - 3 days; Reason: If symptoms return, Further diagnostic work-up, Recheck today's complaints, Continuance of care, Re-evaluation by your physician. - Problem is new. - Symptoms have improved. Signatures: Dispatcher [employer] Case Gray MD MD kdr Ye Armando RN RN em Asmita Cortes RN RN Corrections: (The following items were deleted from the chart) 09:45 09:27 07/29/2020 09:27 Discharged to Home. Impression: Other slipping, tripping and hb stumbling and falls; Superficial injury of head; Contusion of other part of head - left forehead. Condition is Stable. Forms are Medication Reconciliation Form, Thank You Letter, Antibiotic Education, Prescription Opioid Use. Follow up: Private Physician; When: 2 - 3 days; Reason: If symptoms return, Further diagnostic work-up, Recheck today's complaints, Continuance of care, Re-evaluation by your physician. Problem is new. Symptoms have improved. kdr
--- NOTE | 2020-07-29 09:28 | ER ---
Nurse's Notes [facility] Name: Nelson Murillo Age: 75 yrs Sex: Male : 1945 Arrival Date: 07/29/2020 Time: 07:55 Bed 5 Private MD: Diagnosis: Other slipping, tripping and stumbling and falls;Superficial injury of head;Contusion of other part of head-left forehead Presentation: 07/29 08:10 Chief complaint: Patient states: missed a step this morning while walking into the em garage, denies hitting head or LOC, reports pain in left knee, left elbow and upper chest/collar bone area, has had 6 brain bleeds. Coronavirus screen: Client denies travel out of the [place] in the last 14 days. Ebola Screen: Patient negative for fever greater than or equal to 101.5 degrees Fahrenheit, and additional compatible Ebola Virus Disease symptoms Patient denies exposure to infectious person. Patient denies travel to an Ebola-affected area in the 21 days before illness onset. No symptoms or risks identified at this time. Initial Sepsis Screen: Does the patient meet any 2 criteria? No. Patient's initial sepsis screen is negative. Does the patient have a suspected source of infection? No. Patient's initial sepsis screen is negative. Risk Assessment: Do you want to hurt yourself or someone else? Patient reports no desire to harm self or others. Onset of symptoms was July 29, 2020. 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 - Social history:: Smoking status: Patient denies any tobacco usage or history of. Screenin:00 Abuse screen: Denies threats or abuse. Denies injuries from another. Nutritional hb screening: No deficits noted. Tuberculosis screening: No symptoms or risk factors identified. Fall Risk None identified. Assessment: 08:20 General: Appears in no apparent distress. Behavior is calm, cooperative. Pain: Pain hb currently is 9 out of 10 on a pain scale. Neuro: Level of Consciousness is awake, alert, obeys commands, Oriented to person, place, time, situation. Cardiovascular: Patient's skin is warm and dry. Respiratory: Respiratory effort is even, unlabored, Respiratory pattern is regular, symmetrical. GI: No signs and/or symptoms were reported involving the gastrointestinal system. : No signs and/or symptoms were reported regarding the genitourinary system. EENT: No signs and/or symptoms were reported regarding the EENT system. Derm: Skin is pink, warm \T\ dry. Musculoskeletal: Reports left knee pain. 09:00 Reassessment: Patient appears in no apparent distress at this time. hb Vital Signs: 08:10 BP 160 / 108; Pulse 64; Resp 18; Temp 98.1; Pulse Ox 100% on R/A; Weight 86.18 kg; em Height 5 ft. 8 in. (172.72 cm); Pain 10/10; 09:30 BP 148 / 88; Pulse 62; Resp 16; Pulse Ox 98% ; hb 08:10 Body Mass Index 28.89 (86.18 kg, 172.72 cm) em ED Course: 07:55 Patient arrived in ED. as 08:04 Case Mckay MD is Attending Physician. kdr 08:14 Triage completed. em 08:15 Arm band placed on. em 08:20 Patient has correct armband on for positive identification. Bed in low position. Call hb light in reach. 08:28 CT Head C Spine In Process Unspecified. EDMS 09:38 No provider procedures requiring assistance completed. Patient did not have IV access hb during this emergency room visit. Administered Medications: No medications were administered Outcome: 09:27 Discharge ordered by . kdr 09:38 Discharged to home ambulatory. hb 09:38 Condition: stable 09:38 Discharge instructions given to patient, Instructed on discharge instructions, follow up and referral plans. medication usage, Demonstrated understanding of instructions, follow-up care, medications. 09:45 Patient left the ED. hb Signatures: Dispatcher [employer] EDAL Case Mckay MD MD kdr Ye Armando, RN RN Nessa Charles Heather, RN RN hb
[2020-08-03 02:26] VITALS: TEMP 98.4
[2020-08-03 03:01] VITALS: BP 148/88; O2SAT 98
== END 2020-07-29 09:45 | disposition home or self-care (01) ==
LOC: ER 07:54
DX: S00.83XA Contusion of other part of head, initial encounter (principal); W01.0XXA Fall on same level from slipping, tripping and stumbling without subsequent striking against object, initial encounter; Y93.01 Activity, walking, marching and hiking; Y92.9 Unspecified place or not applicable; I10 Essential (primary) hypertension; Z86.73 Personal history of transient ischemic attack (TIA), and cerebral infarction without residual deficits; Z88.6 Allergy status to analgesic agent; Z88.8 Allergy status to other drugs, medicaments and biological substances
CPT/HCPCS: 70450; 72125; 99283

== ENCOUNTER 2021-12-03 12:05 | Emergency (ER) | payer OTHER ==
--- OUTSIDE RECORDS SUMMARY | 2021-12-03 12:14 | XMS REPORT | Continuity of Care Document ---
:1945 Author Organization [facility] t Address [address] [place] [address] Care Team Providers Name Role Phone SD Raghu Primary Care Physician Unavailable ARNULFO GOMEZ Attending Clinician Unavailable ARNULFO GOMEZ Attending Clinician Unavailable Arnulfo Gomez MD Attending Clinician ANENE Attending Clinician Unavailable IVANA DE PAZ Attending Clinician Unavailable CECELIA Attending Clinician Unavailable Dru ANGELES Attending Clinician Unavailable JAYLAN GAFFNEY Attending Clinician Unavailable GABRIELA FERRARI Attending Clinician Unavailable ARNULFO GOMEZ Admitting Clinician Unavailable IVANA DE PAZ Admitting Clinician Unavailable CECELIA Admitting Clinician Unavailable Dru ANGELES Admitting Clinician Unavailable JAYLAN GAFFNEY Admitting Clinician Unavailable GABRIELA FERRARI Admitting Clinician Unavailable Payers Payer Name Policy Type Policy Number Effective Date Expiration Date [facility] [id number] 2021 [facility] 00:00:00 PPO MEDICARE PART A \T\ [id number] 2020 B 00:00:00 Problems Condition Condition Condition Status Onset Resolution Last Treating Co mments Source Name Details Category Date Date Treatment Clinician Date Syncope Syncope Disease Active 2006-08 Univers and and 0-25 ity of collapse collapse 00:00: [place] [address] Medical Branch Altered Altered Disease Active 2006-08 Univers mental mental 0-25 ity of status status 00:00: [place] [address] Medical Branch Allergies, Adverse Reactions, Alerts Allergy Allergy Status Severity Reaction(s) Onset Inactive Treating Comm ents Source Name Type Date Date Clinician Aspirin Propensi Active Other - See unknown U nivers ty to comments 1- ity of adverse 00:00: [place] reaction 00 Medical s Branch Lorazepa Propensi Active Shortness of Univers m ty to Breath -05 ity of adverse 00:00: [place] reaction 00 Medical s Branch ASPIRIN DRUG Active High Other-Cmnt Unive rs INGREDI - ity of 00:00: [place] [facility] LORAZEPA DRUG Active Med SOB Univers M INGREDI 08-23 ity of 00:00: [place] 00 Medical Branch NO KNOWN Drug Active Univers ALLERGIE Class ity of S [facility] NO KNOWN Allergy Active [facility] Social History Social Habit Start Date Stop Date Quantity Comments Source History of Cigarette Smoker Universi ty of tobacco use [facility] Exposure to Not sure University of SARS-CoV-2 [facility] (event) [place] Alcohol intake 2021-05-30 2021-05-30 University of 00:00:00 00:00:00 [facility] Tobacco use and 2014-12-13 2014-12-13 Never used Universit y of exposure 00:00:00 00:00:00 [facility] Tobacco Comment 2013-11-23 2013-11-23 quit 1969 Universit y of 00:00:00 00:00:00 [facility] Sex [birth year] Universit y of 00:00:00 00:00:00 [facility] Smoking Status Start Date Stop Date Source Former smoker 2014-12-13 00:00:00 2014-12-13 00:00:00 Universi ty of [facility] Medications Ordered Filled Start Stop Current Ordering Indication Dosage Frequency Signature Comments Components Source Medication Medication Date Date Medication? Clinician (SIG) Name Name levETIRAcet 2020-08- 750mg Take 750 Univers am (KEPPRA) 0-12 10-12 mg by ity of 750 mg 11:59: 00:00 mouth 2 [place] tablet 36 :00 (two) Medical times [place] daily. cyclobenzap Yes 5mg Take 5 mg U nivers rine 5 mg 1-05 by mouth ity of tablet 10:54: as needed [place] 56 for Muscle Medical Spasms. Branch ezetimibe Yes 10mg Take 10 mg Un dameon 10 mg 1-05 by mouth ity of tablet 10:54: daily. [place] [address] Medical Branch traMADoL 50 0 Yes 50mg Take 50 mg Univers mg tablet 1-05 by mouth ity of 10:54: every 6 [place] [address] (six) Medical hours as Branch needed. meloxicam 0 Yes 7.5mg Take 7.5 Uni vers 7.5 mg 1-05 mg by ity of tablet 10:54: mouth [place] 56 daily. Medical Branch clopidogrel 0 Yes 75mg Take 75 mg Univers (PLAVIX) 75 1-05 by mouth ity of mg tablet 10:54: daily. [place] [address] Medical Branch pravastatin 0 Yes 40mg Take 40 mg Univers (PRAVACHOL) 1-05 by mouth ity of 40 mg 10:54: at [place] tablet 56 bedtime. Medical Branch GLUC 0 Yes 1500mg Take 1,500 Unive rs MAGANA/CHONDRO 1-05 mg by ity of MAGANA A/VIT 10:54: mouth [place] C/[place] 56 daily. Medical (GLUCOSAMIN Branch E 1500 COMPLEX ORAL) omeprazole 0 Yes 20mg Take 20 mg U nivers (PRILOSEC) 1-05 by mouth 2 ity of 20 mg 10:54: (two) [place] capsule 56 times Medical daily with Branch meals. phenytoin 0 Yes 200mg Take 200 Uni vers ER 200 mg 1-05 mg by ity of ER capsule 10:54: mouth. [place] [address] Medical Branch phenytoin 0 Yes 30mg Take 30 mg Un [place] Extended 30 1-05 by mouth ity of mg capsule 10:54: every [place] [address] morning. Medical Branch losartan 50 0 Yes 50mg Take 50 mg Univers mg tablet 1-05 by mouth ity of 10:54: daily. [place] [address] Medical Branch atorvastati 0 Yes 80mg Take 80 mg Univers n 80 mg 1-05 by mouth ity of tablet 10:54: at [place] [address] bedtime. Medical Branch cyclobenzap 0 Yes 5mg Take 5 mg U nivers rine 5 mg 1-05 by mouth ity of tablet 10:54: as needed [place] [address] for Muscle Medical Spasms. Branch ezetimibe 0 Yes 10mg Take 10 mg Un d[place] 10 mg 1-05 by mouth ity of tablet 10:54: daily. [place] [address] Medical Branch traMADoL 50 0 Yes 50mg Take 50 mg Univers mg tablet 1-05 by mouth ity of 10:54: every 6 [place] [address] (six) Medical hours as Branch needed. meloxicam 0 Yes 7.5mg Take 7.5 Uni vers 7.5 mg 1-05 mg by ity of tablet 10:54: mouth [place] 56 daily. Medical Branch clopidogrel Yes 75mg Take 75 mg Univers (PLAVIX) 75 1-05 by mouth ity of mg tablet 10:54: daily. [place] [address] Medical Branch pravastatin 0 Yes 40mg Take 40 mg Univers (PRAVACHOL) 1-05 by mouth ity of 40 mg 10:54: at [place] [address] bedtime. Medical Branch GLUC Yes 1500mg Take 1,500 Unive rs MAGANA/CHONDRO 1-05 mg by ity of MAGANA A/VIT 10:54: mouth [place] C/[place] 56 daily. Medical (GLUCOSAMIN Branch E 1500 COMPLEX ORAL) omeprazole Yes 20mg Take 20 mg U nivers (PRILOSEC) 1-05 by mouth 2 ity of 20 mg 10:54: (two) [place] capsule 56 times [facility] daily with Branch meals. phenytoin Yes 200mg Take 200 Uni vers ER 200 mg 1-05 mg by ity of ER capsule 10:54: mouth. [place] [address] Medical Branch phenytoin 0 Yes 30mg Take 30 mg [place] Extended 30 1-05 by mouth ity of mg capsule 10:54: every [place] [address] morning. Medical Branch losartan 50 Yes 50mg Take 50 mg Univers mg tablet 1-05 by mouth ity of 10:54: daily. [place] [address] Medical Branch atorvastati 0 Yes 80mg Take 80 mg Univers n 80 mg 1-05 by mouth ity of tablet 10:54: at [place] [address] bedtime. Medical Branch Simethicone Yes 180mg Take 180 U nivers (PHAZYME) 6-22 mg by ity of 180 mg Cap 00:00: mouth 3 [place] (three) Medical times Branch daily before meals. Simethicone Yes 180mg Take 180 U nivers (PHAZYME) 6-22 mg by ity of 180 mg Cap 00:00: mouth 3 [place] (three) Medical times [place] daily before meals. metoprolol 0 Yes 25mg Take 25 mg U nivers tartrate 3-05 by mouth ity of (LOPRESSOR) 00:00: [place]. [place] 25 mg 00 Medical tablet Branch metoprolol 2015-0 Yes 25mg Take 25 mg U nivers tartrate 3-05 by mouth ity of (LOPRESSOR) 00:00: [place]. [place] 25 mg 00 Medical tablet Branch Vital Signs Vital Name Observation Time Observation Value Comments Source Systolic blood 2021-05-30 16:31:00 119 mm[Hg] Univer sity [facility] Diastolic blood 2021-05-30 16:31:00 72 mm[facility]Hg] [facility] 2021-05-30 16:31:00 63 /min [facility] Respiratory rate 2021-05-30 16:31:00 19 /min [facility] [place] Body height 2021-05-30 16:31:00 172.7 cm [facility] Body weight 2021-05-30 16:31:00 86.183 kg [facility] BMI 2021-05-30 16:31:00 28.89 kg/m2 [facility] Oxygen saturation in 2021-05-30 16:31:00 96 /min [facility] Arterial blood by [facility] Pulse oximetry [place] Procedures Procedure Date / Time Performed Performing Clinician Sourc e MR BRAIN WO CONTRAST 2021-06-23 14:08:54 Sylvain Gomez [facility] Encounters Start End Encounter Admission Attending Care Care Encounter Source Date/Time Date/Time Type Type Clinicians Facility Department ID 2021-06-23 2021-06-23 Outpatient R SYLVAIN GOMEZ [facility] [id number] Univers 07:22:40 23:59:00 SYLVAIN GOMEZ [facility] [place] [facility] 2021-06-23 2021-06-23 [facility] Jason [facility] [id number] Univers 07:22:40 23:59:00 Encounter Sylvain Ryan SPECIALTY [id number] ity of C[place] [id number] [id number] Sd dicreji SERVIN [id number] [facility] 2021-06-23 2021-06-23 Outpatient Arvind MEEKSSYLVAIN Lux [facility] [id number] Univers 00:00:00 00:00:00 SYLVAIN GOMEZ [id number] [facility] [place] 2021-05-30 2021-05-30 Office Jason, [facility] [id number] Univers 10:47:24 12:22:11 Visit Sylvain [facility] [id number] [facility] [id number] Ernst as [place]?Blea [id number] Sd dicreji perez 092 [place] [facility] 2021-05-30 2021-05-30 Outpatient JASON, SYLVAIN [facility] [id number] Univers 11:00:00 11:00:00 JASON, SYLVAIN [id number] [facility] [place] 2021-05-30 2021-05-30 Outpatient SYLVAIN MALAGON [facility] [id number] Univers 11:00:00 11:00:00 JASON SYLVAIN [facility] [place] 2020-09-19 2020-09-19 Outpatient Arvind [facility] [id number] Univers 08:40:00 08:40:00 [id number] [facility] [place] 2020-09-19 2020-09-19 Outpatient Arvind WEISS [facility] [id number] Univers 08:40:00 08:40:00 LYNETTE [facility] [place] 2020-08-23 2020-08-23 Outpatient Arvind MEEKSMadelaine SYLVAIN [facility] [id number] Univers 10:00:00 10:00:00 JASONSYLVAIN [facility] [place] Results Test Description Test Time Test Comments [...] (test code = Normal 762) BASIC METABOLIC [id number] 07:36:00 Test Item Value Reference Range Interpretation [...] S NOT APPLICABLE FOR DIALYSIS PATIEN TS. [id number] 07:33:00 Test Item Value Reference Range Interpretation [...] is 2.5-3.5 for patients with mechanical heart valves.[id number] 16:00:00 Test Item Value Reference Range Interpretation Comments PHOSPHORUS (BEAKER) (test code = 3.6 mg/dL 2.3-4.7 604) [id number] 16:00:00 Test Item Value Reference Range Interpretation Comments MAGNESIUM (BEAKER) (test code = 2.0 mg/dL 1.6-2.6 627) BASIC METABOLIC [id number] 16:00:00 Test Item Value Reference Range Interpretation [...] PATIEN TS. CBC W/PLT COUNT & AUTO [id number] 15:02:00 Test Item Value Reference Range Interpretation [...] MORPHOLOGY (BEAKER) (test code = Normal 762) [id number] 07:21:00 Test Item Value Reference Range Interpretation [...] 2.5-3.5 for patients with mechanical heart valves.CALCIUM, [id number] 06:48:00 Test Item Value Reference Range Interpretation Comments CALCIUM IONIZED (BEAKER) (test 1.05 mmol/L 1.12-1.27 L code = 698) PH, BLOOD (BEAKER) (test code = 7.40 1810) CBC W/PLT COUNT & AUTO [id number] 13:02:00 Test Item Value Reference Range Interpretation [...] RBCS(BEAKER) (test 1+ few code = 478) [id number] 07:15:00 Test Item Value Reference Range Interpretation Comments PHOSPHORUS (BEAKER) (test code = 3.2 mg/dL 2.3-4.7 604) [id number] 07:15:00 Test Item Value Reference Range Interpretation Comments MAGNESIUM (BEAKER) (test code = 2.1 mg/dL 1.6-2.6 627) BASIC METABOLIC [id number] 07:15:00 Test Item Value Reference Range Interpretation [...] NOT APPLICABLE FOR DIALYSIS PATIEN TS. CALCIUM, [id number] 06:56:00 Test Item Value Reference Range Interpretation Comments CALCIUM IONIZED (BEAKER) (test 1.00 mmol/L 1.12-1.27 L code = 698) PH, BLOOD (BEAKER) (test code = 7.39 1810) [id number] 06:45:00 Test Item Value Reference Range Interpretation [...] 1+ few code = 478) BASIC METABOLIC [id number] 04:52:00 Test Item Value Reference Range Interpretation [...] S NOT APPLICABLE FOR DIALYSIS PATIEN TS. [id number] 04:04:00 Test Item Value Reference Range Interpretation [...] K/ L 0.00-0.20 (test code = 417) [id number] 06:23:00 Test Item Value Reference Range Interpretation Comments PHOSPHORUS (BEAKER) (test code = 3.5 mg/dL 2.3-4.7 604) [id number] 06:23:00 Test Item Value Reference Range Interpretation Comments MAGNESIUM (BEAKER) (test code = 2.1 mg/dL 1.6-2.6 627) BASIC METABOLIC [id number] 06:23:00 Test Item Value Reference Range Interpretation [...] S NOT APPLICABLE FOR DIALYSIS PATIEN TS. [id number] 05:42:00 Test Item Value Reference Range Interpretation [...] 2.5-3.5 for patients with mechanical heart valves.CALCIUM, [id number] 05:34:00 Test Item Value Reference Range Interpretation Comments CALCIUM IONIZED (BEAKER) (test 1.08 mmol/L 1.12-1.27 L code = 698) PH, BLOOD (BEAKER) (test code = 7.38 1810) CBC W/PLT COUNT & AUTO [id number] 05:27:00 Test Item Value Reference Range Interpretation [...] L 0.00-0.20 (test code = 417) 0.00CALCIUM, [id number] 05:25:00 Test Item Value Reference Range Interpretation Comments CALCIUM IONIZED (BEAKER) (test 1.06 mmol/L 1.12-1.27 L code = 698) PH, BLOOD (BEAKER) (test code = 7.42 1810) [id number] 05:10:00 Test Item Value Reference Range Interpretation Comments PHOSPHORUS (BEAKER) (test code = 3.8 mg/dL 2.3-4.7 604) [id number] 05:10:00 Test Item Value Reference Range Interpretation Comments MAGNESIUM (BEAKER) (test code = 2.0 mg/dL 1.6-2.6 627) BASIC METABOLIC [id number] 05:10:00 Test Item Value Reference Range Interpretation [...] S NOT APPLICABLE FOR DIALYSIS PATIEN TS. [id number] 05:03:00 Test Item Value Reference Range Interpretation [...] 2.5-3.5 for patients with mechanical heart valves.CALCIUM, [id number] 06:19:00 Test Item Value Reference Range Interpretation Comments CALCIUM IONIZED (BEAKER) (test 0.95 mmol/L 1.12-1.27 L code = 698) PH, BLOOD (BEAKER) (test code = 7.50 1810) CBC W/PLT COUNT & AUTO [id number] 06:16:00 Test Item Value Reference Range Interpretation [...] K/ L 0.00-0.20 (test code = 417) [id number] 06:00:00 Test Item Value Reference Range Interpretation Comments PHOSPHORUS (BEAKER) (test code = 3.6 mg/dL 2.3-4.7 604) [id number] 06:00:00 Test Item Value Reference Range Interpretation Comments MAGNESIUM (BEAKER) (test code = 2.2 mg/dL 1.6-2.6 627) BASIC METABOLIC [id number] 06:00:00 Test Item Value Reference Range Interpretation [...] S NOT APPLICABLE FOR DIALYSIS PATIEN TS. [id number] 05:49:00 Test Item Value Reference Range Interpretation [...] is 2.5-3.5 for patients with mechanical heart valves.[id number] 13:57:00 Test Item Value Reference Range Interpretation Comments FIBRINOGEN LEVEL (BEAKER) (test 347 mg/dl 225-434 code = 658) CBC W/PLT COUNT & AUTO [id number] 07:20:00 Test Item Value Reference Range Interpretation [...] 0.00-0.20 (test code = 417) 0.00BASIC METABOLIC [id number] 06:11:00 Test Item Value Reference Range Interpretation [...] S NOT APPLICABLE FOR DIALYSIS PATIEN TS. [id number] 06:01:00 Test Item Value Reference Range Interpretation [...] K/ L 0.00-0.20 (test code = 417) [id number] 06:09:00 Test Item Value Reference Range Interpretation [...] for patients with mechanical heart valves.BASIC METABOLIC [id number] 06:08:00 Test Item Value Reference Range Interpretation [...] PATIEN TS. CBC W/PLT COUNT & AUTO [id number] 04:02:00 Test Item Value Reference Range Interpretation [...] 0.00-0.20 (test code = 417) 0.00BASI METABOLIC [id number] 04:01:00 Test Item Value Reference Range Interpretation [...] S NOT APPLICABLE FOR DIALYSIS PATIEN TS. [id number] 03:47:00 Test Item Value Reference Range Interpretation [...] for patients with mechanical heart valves.OCCULT BLOOD, [id number] 15:31:00 Test Item Value Reference Range Interpretation Comments FECAL OCCULT BLOOD (BEAKER) (test Negative Negative code = 618) [id number] 13:55:00 Test Item Value Reference Range Interpretation [...] exclusion of thrombosis is within 95-100% range. [id number] 13:47:00 Test Item Value Reference Range Interpretation Comments FIBRINOGEN LEVEL (BEAKER) (test 424 mg/dl 225-434 code = 658) CBC W/PLT COUNT & AUTO [id number] 06:48:00 Test Item Value Reference Range Interpretation [...] K/ L 0.00-0.20 (test code = 417) [id number] 05:05:00 Test Item Value Reference Range Interpretation Comments PARTIAL THROMBOPLASTIN TIME 51.7 seconds 22.5-36.0 H ([facility]) (test code = 760) POCT-GLUCOSE [id number] 04:37:00 Test Item Value Reference Range Interpretation Comments POC-GLUCOSE METER 108 mg/dL 70-110 TESTED AT [facility] 6720 ([facility]) (test code = [place] 1538) [address] [id number] 22:51:00 Test Item Value Reference Range Interpretation Comments PARTIAL THROMBOPLASTIN TIME 96.1 seconds 22.5-36.0 H (AKER) (test code = 760) [id number] 16:04:00 Test Item Value Reference Range Interpretation Comments PARTIAL THROMBOPLASTIN TIME 93.1 seconds 22.5-36.0 H (AKER) (test code = 760) [id number] 06:38:00 Test Item Value Reference Range Interpretation Comments PARTIAL THROMBOPLASTIN TIME 93.0 seconds 22.5-36.0 H ([facility]) (test code = 760) [id number] 23:08:00 Test Item Value Reference Range Interpretation Comments PARTIAL THROMBOPLASTIN TIME 56.6 seconds 22.5-36.0 H ([facility]) (test code = 760) [id number] 18:59:00 Test Item Value Reference Range Interpretation Comments PARTIAL THROMBOPLASTIN TIME 28.6 seconds 22.5-36.0 ([facility]) (test code = 760) PROTHROMBIN [id number] 15:38:00 Test Item Value Reference Range Interpretation Comments PROTIME ([facility]) (test code = 13.9 seconds 11.7-14.7 759) INR ([facility]) (test code = 370) 1.1 <=5.9 RECOMMENDED COUMADIN/WARFARIN INR THERAPY RANGESSTANDARD DOSE: 2.0 - 3.0 Includes: PROPHYLAXIS forvenous thrombosis, systemic embolization; TREATMENT for venous thrombosis and/or pulmonary embolus.HIGH RISK: Target INR is 2.5-3.5 for patients with mechanical heart valves.[id number] 12:27:00 Test Item Value Reference Range Interpretation Comments PARTIAL THROMBOPLASTIN TIME 65.9 seconds 22.5-36.0 H ([facility]) (test code = 760) CBC W/PLT COUNT & AUTO [id number] 06:07:00 Test Item Value Reference Range Interpretation [...] 0.00-0.20 (test code = 417) 0.00BASIC METABOLIC [id number] 05:49:00 Test Item Value Reference Range Interpretation [...] S NOT APPLICABLE FOR DIALYSIS PATIEN TS. [id number] 05:25:00 Test Item Value Reference Range Interpretation Comments PARTIAL THROMBOPLASTIN TIME 83.0 seconds 22.5-36.0 H (BEAKER) (test code = 760) [id number] 22:17:00 Test Item Value Reference Range Interpretation Comments PARTIAL THROMBOPLASTIN TIME 91.0 seconds 22.5-36.0 H (BEAKER) (test code = 760) [id number] 16:11:00 Test Item Value Reference Range Interpretation Comments PARTIAL THROMBOPLASTIN TIME 94.0 seconds 22.5-36.0 H (BEAKER) (test code = 760) [id number] 09:42:00 Test Item Value Reference Range Interpretation Comments PARTIAL THROMBOPLASTIN TIME 89.9 seconds 22.5-36.0 H (BEAKER) (test code = 760) [id number] 02:30:00 Test Item Value Reference Range Interpretation Comments PARTIAL THROMBOPLASTIN TIME 108.5 seconds 22.5-36.0 H (BEAKER) (test code = 760) [id number] 18:47:00 Test Item Value Reference Range Interpretation Comments PARTIAL THROMBOPLASTIN TIME 74.1 seconds 22.5-36.0 H (BEAKER) (test code = 760) [id number] 12:42:00 Test Item Value Reference Range Interpretation Comments PARTIAL THROMBOPLASTIN TIME 48.7 seconds 22.5-36.0 H (BEAKER) (test code = 760) BASIC METABOLIC [id number] 05:29:00 Test Item Value Reference Range Interpretation Comments SODIUM (BEAKER) 126 meq/L 136-145 L (test code = 381) POTASSIUM (BEAKER) 5.0 meq/L 3.5-5.1 (test code = 379) CHLORIDE (BEAKER) 92 meq/L 98-107 L (test code = 382) CO2 (BEAKER) (test 23 meq/L code = 355) BLOOD UREA NITROGEN 30 [...] S NOT APPLICABLE FOR DIALYSIS PATIEN TS. [id number] 05:14:00 Test Item Value Reference Range Interpretation Comments PARTIAL THROMBOPLASTIN TIME 43.1 seconds 22.5-36.0 H (BEAKER) (test code = 760) [id number] 22:32:00 Test Item Value Reference Range Interpretation Comments PARTIAL THROMBOPLASTIN TIME 42.2 seconds 22.5-36.0 H (BEAKER) (test code = 760) [id number] 15:38:00 Test Item Value Reference Range Interpretation [...] WBC 0-0 (BEAKER) (test code = 413) 0.00BASI METABOLIC [id number] 06:35:00 Test Item Value Reference Range Interpretation [...] (BEAKER) (test code = 413) 0.00PHENYTOIN LEVEL, [id number] 06:21:00 Test Item Value Reference Range Interpretation Comments PHENYTOIN (DILANTIN) (BEAKER) (test 4.0 ug/mL 10.0-20.0 L code = 605) URINALYSIS W/ REFLEX URINE [id number] 12:57:00 Test Item Value Reference Range Interpretation [...] SOURCE(BEAKER) (test code = 2795) HEPATIC FUNCTION [id number] 12:45:00 Test Item Value Reference Range Interpretation [...] = 22 U/L 6-55 347) BASIC METABOLIC [id number] 12:45:00 Test Item Value Reference Range Interpretation [...] 0-0 (BEAKER) (test code = 413) 0.00POCT-GLUCOSE [id number] 11:53:00 Test Item Value Reference Range Interpretation Comments POC-GLUCOSE METER 117 mg/dL 70-110 H TESTED AT [facility] 6720 ([facility]) (test code = [place] 1538) [address] CBC W/PLT COUNT & AUTO [id number] 07:10:00 Test Item Value Reference Range Interpretation [...] K/ L 0.00-0.20 (test code = 417) [id number] 15:06:00 Test Item Value Reference Range Interpretation [...] 2.5-3.5 for patients with mechanical heart valves.POCT-GLUCOSE [id number] 12:02:00 Test Item Value Reference Range Interpretation Comments POC-GLUCOSE METER 137 mg/dL 70-110 H TESTED AT [facility] 6720 ([facility]) (test code = [place] [facility] 1538) [address] BASIC METABOLIC [id number] 05:46:00 Test Item Value Reference Range Interpretation [...] PATIEN TS. CBC W/PLT COUNT & AUTO [id number] 05:44:00 Test Item Value Reference Range Interpretation [...] L 0.00-0.20 (test code = 417) 0.00POCT-GLUCOSE [id number] 01:09:00 Test Item Value Reference Range Interpretation Comments POC-GLUCOSE METER 105 mg/dL 70-110 TESTED AT [facility] 6720 (BEAKER) (test code = [facility] 1538) [address] POCT-GLUCOSE [id number] 17:33:00 Test Item Value Reference Range Interpretation Comments POC-GLUCOSE METER 123 mg/dL 70-110 H TESTED AT [place] [address] ([facility]) (test code = [facility] 1538) [address] POCT-GLUCOSE [id number] 12:08:00 Test Item Value Reference Range Interpretation Comments POC-GLUCOSE METER 104 mg/dL 70-110 TESTED AT [place] [address] ([facility]) (test code = [facility] 1538) [address] POCT-GLUCOSE [id number] 06:26:00 Test Item Value Reference Range Interpretation Comments POC-GLUCOSE METER 139 mg/dL 70-110 H TESTED AT [place] [address] ([facility]) (test code = [facility] 1538) [address] BASIC METABOLIC [id number] 04:04:00 Test Item Value Reference Range Interpretation [...] PATIEN TS. CBC W/PLT COUNT & AUTO [id number] 03:54:00 Test Item Value Reference Range Interpretation [...] L 0.00-0.20 (test code = 417) 0.00POCT-GLUCOSE [id number] 00:30:00 Test Item Value Reference Range Interpretation Comments POC-GLUCOSE METER 106 mg/dL 70-110 TESTED AT [facility] 6720 ([facility]) (test code = [facility] 1538) [address] POCT-GLUCOSE [id number] 17:47:00 Test Item Value Reference Range Interpretation Comments POC-GLUCOSE METER 158 mg/dL 70-110 H TESTED AT [facility] 67 ([facility]) (test code = [facility] 1538) [address] POCT-GLUCOSE [id number] 12:41:00 Test Item Value Reference Range Interpretation Comments POC-GLUCOSE METER 184 mg/dL 70-110 H TESTED AT [place] [address] ([facility]) (test code = [facility] 1538) [address] BASIC METABOLIC [id number] 07:20:00 Test Item Value Reference Range Interpretation [...] PATIEN TS. CBC W/PLT COUNT & AUTO [id number] 06:56:00 Test Item Value Reference Range Interpretation [...] L 0.00-0.20 (test code = 417) 0.00POCT-GLUCOSE [id number] 06:28:00 Test Item Value Reference Range Interpretation Comments POC-GLUCOSE METER 130 mg/dL 70-110 H TESTED AT [facility] 6720 (BEAKER) (test code = JOSE [place] 1538) [address] POCT-GLUCOSE [id number] 00:19:00 Test Item Value Reference Range Interpretation Comments POC-GLUCOSE METER 124 mg/dL 70-110 H TESTED AT [place] [address] ([facility]) (test code = JOSE Samuels [facility] 1538) [address] POCT-GLUCOSE [id number] 18:43:00 Test Item Value Reference Range Interpretation Comments POC-GLUCOSE METER 92 mg/dL 70-110 TESTED AT [place] [address] ([facility]) (test code = JOSE Samuels [facility] [address] 1538) POCT-GLUCOSE [id number] 12:34:00 Test Item Value Reference Range Interpretation Comments POC-GLUCOSE METER 176 mg/dL 70-110 H TESTED AT [place] [address] ([facility]) (test code = JOSE Samuels [facility] 1538) [address] CBC W/PLT COUNT & AUTO [id number] 09:33:00 Test Item Value Reference Range Interpretation [...] 0.00-0.20 (test code = 417) 0.00COMPREHENSIVE METABOLIC [id number] 08:56:00 Test Item Value Reference Range Interpretation [...] NOT APPLICABLE FOR DIALYSIS PATIEN TS. POCT-GLUCOSE [id number] 05:58:00 Test Item Value Reference Range Interpretation Comments POC-GLUCOSE METER 96 mg/dL 70-110 TESTED AT [place] [address] ([facility]) (test code = [facility] [address] 1538) POCT-GLUCOSE [id number] 00:23:00 Test Item Value Reference Range Interpretation Comments POC-GLUCOSE METER 110 mg/dL 70-110 TESTED AT [place] [address] ([facility]) (test code = [facility] 1538) [address] POCT-GLUCOSE [id number] 17:48:00 Test Item Value Reference Range Interpretation Comments POC-GLUCOSE METER 100 mg/dL 70-110 TESTED AT [place] [address] ([facility]) (test code = [facility] 1538) [address]898 POCT-GLUCOSE [id number] 12:09:00 Test Item Value Reference Range Interpretation Comments POC-GLUCOSE METER 103 mg/dL 70-110 TESTED AT [place] [address] ([facility]) (test code = [facility] 1538) [address] URINE [id number] 08:43:00 Test Item Value Reference Range Interpretation Comments CULTURE ([facility]) (test code = 1095) No growth BASIC METABOLIC [id number] 06:59:00 Test Item Value Reference Range Interpretation [...] NOT APPLICABLE FOR DIALYSIS PATIEN TS. POCT-GLUCOSE [id number] 06:02:00 Test Item Value Reference Range Interpretation Comments POC-GLUCOSE METER 102 mg/dL 70-110 TESTED AT [facility] 6720 ([facility]) (test code = [place] 1538) [address] PHENYTOIN LEVEL, [id number] 05:51:00 Test Item Value Reference Range Interpretation Comments PHENYTOIN (DILANTIN) (BEAKER) (test 7.3 ug/mL 10.0-20.0 L code = 605) CBC W/PLT COUNT & AUTO [id number] 05:41:00 Test Item Value Reference Range Interpretation [...] L 0.00-0.20 (test code = 417) 0.00POCT-GLUCOSE [id number] 03:20:00 Test Item Value Reference Range Interpretation Comments POC-GLUCOSE METER 121 mg/dL 70-110 H TESTED AT [facility] 6720 ([facility]) (test [facility] = [facility] 1538) [address] POCT-GLUCOSE [id number] 18:47:00 Test Item Value Reference Range Interpretation Comments POC-GLUCOSE METER 116 mg/dL 70-110 H TESTED AT [facility] 6720 ([facility]) (test code = [facility] [place] 1538) [address] PLATELET AGGREGATION: FUNCTION [id number] 13:09:00 Test Item Value Reference Range Interpretation Comments WEAK ADP 100 % 60-91 H RESULT(BEAKER) (test code = 2135) PLATELET FUNCTION 60-100% indicates SCREEN INTERP (BEAKER) normal platelet (test code = 2173) function [id number] Justin Goel MD ([facility]) (test code = (electronic signature) 4201) PLATELET COUNT AGG 181 K/CU MM 150-430 (BEAKER) (test code = 2656) PHENYTOIN LEVEL, [id number] 13:01:00 Test Item Value Reference Range Interpretation Comments PHENYTOIN (DILANTIN) (BEAKER) (test 8.6 ug/mL 10.0-20.0 L code = 605) POCT-GLUCOSE [id number] 12:17:00 Test Item Value Reference Range Interpretation Comments POC-GLUCOSE METER 103 mg/dL 70-110 TESTED AT [facility] 6720 ([facility]) (test code = [facility] 1538) 13555 POCT-GLUCOSE [id number] 06:29:00 Test Item Value Reference Range Interpretation Comments POC-GLUCOSE METER 93 mg/dL 70-110 TESTED AT [facility] 67 ([facility]) (test code = [facility] [address] 1538) [id number] 05:36:00 Test Item Value Reference Range Interpretation Comments MAGNESIUM (BEAKER) (test code = 1.7 mg/dL 1.6-2.6 627) BASIC METABOLIC [id number] 05:36:00 Test Item Value Reference Range Interpretation [...] PATIEN TS. CBC W/PLT COUNT & AUTO [id number] 05:22:00 Test Item Value Reference Range Interpretation [...] L 0.00-0.20 (test code = 417) 0.00POCT-GLUCOSE [id number] 00:30:00 Test Item Value Reference Range Interpretation Comments POC-GLUCOSE METER 97 mg/dL 70-110 TESTED AT [facility] 6720 ([facility]) (test code = [place] [address] 1538) POCT-GLUCOSE [id number] 18:12:00 Test Item Value Reference Range Interpretation Comments POC-GLUCOSE METER 97 mg/dL 70-110 TESTED AT [facility] 6720 ([facility]) (test code = [place] [address] 1538) PLATELET AGGREGATION: FUNCTION [id number] 13:04:00 Test Item Value Reference Range Interpretation Comments WEAK ADP 100 % 60-91 H RESULT([facility]) (test code = 2135) PLATELET FUNCTION 60-100% indicates SCREEN INTERP ([facility]) normal platelet (test code = 2173) function [id number] Justin Goel MD ([facility]) (test code = (electronic signature) 2622) PLATELET COUNT AGG 142 K/CU MM 150-430 L ([facility]) (test code = 2656) POCT-GLUCOSE [id number] 12:12:00 Test Item Value Reference Range Interpretation Comments POC-GLUCOSE METER 98 mg/dL 70-110 TESTED AT [facility] 6720 ([facility]) (test code = [facility] Arvind [facility] [address] 1538) [id number] 10:53:00 Test Item Value Reference Range Interpretation Comments D-DIMER QUANTITATIVE ([facility]) 2.83 MG/L FEU <0.50 H [...] of thrombosis is within 95-100% range. THROMBIN [id number] 10:51:00 Test Item Value Reference Range Interpretation Comments THROMBIN TIME ([facility]) (test code = 15.0 secs 13.8-20.0 550) [id number] 10:50:00 Test Item Value Reference Range Interpretation Comments FIBRINOGEN LEVEL ([facility]) (test 462 mg/dl 225-434 H code = 658) URINALYSIS W/ [id number] 09:54:00 Test Item Value Reference Range Interpretation [...] 1583) SOURCE(BEAKER) (test code = Urine, [place] 3330) CBC W/PLT COUNT & AUTO [id number] 09:17:00 Test Item Value Reference Range Interpretation [...] 0.00-0.20 (test code = 417) 0.00PHENYTOIN LEVEL, [id number] 05:46:00 Test Item Value Reference Range Interpretation Comments PHENYTOIN (DILANTIN) (BEAKER) (test 1.1 ug/mL 10.0-20.0 L code = 605) BASIC METABOLIC [id number] 05:39:00 Test Item Value Reference Range Interpretation [...] NOT APPLICABLE FOR DIALYSIS PATIEN TS. POCT-GLUCOSE [id number] 00:45:00 Test Item Value Reference Range Interpretation Comments POC-GLUCOSE METER 93 mg/dL 70-110 TESTED AT [place] [address] ([facility]) (test code = [facility] [address] 1538) POCT-GLUCOSE [id number] 18:47:00 Test Item Value Reference Range Interpretation Comments POC-GLUCOSE METER 113 mg/dL 70-110 H TESTED AT [place] [address] ([facility]) (test code = [facility] 1538) [address] POCT-GLUCOSE [id number] 12:26:00 Test Item Value Reference Range Interpretation Comments POC-GLUCOSE METER 125 mg/dL 70-110 H TESTED AT [place] [address] ([facility]) (test code = [facility] 1538) [address]75 POCT-GLUCOSE [id number] 06:19:00 Test Item Value Reference Range Interpretation Comments POC-GLUCOSE METER 128 mg/dL 70-110 H TESTED AT [place] [address] ([facility]) (test code = [facility] 1538) [address] COMPREHENSIVE METABOLIC [id number] 04:41:00 Test Item Value Reference Range Interpretation Comments TOTAL PROTEIN 6.1 gm/dL 6.0-8.3 ([facility]) (test code = 770) ALBUMIN (BEAKER) 3.4 [...] PATIEN TS. CBC W/PLT COUNT & AUTO [id number] 04:33:00 Test Item Value Reference Range Interpretation [...] L 0.00-0.20 (test code = 417) 0.00POCT-GLUCOSE [id number] 00:50:00 Test Item Value Reference Range Interpretation Comments POC-GLUCOSE METER 117 mg/dL 70-110 H TESTED AT [place] [address] ([facility]) (test code = [facility] 1538) [address] POCT-GLUCOSE [id number] 17:18:00 Test Item Value Reference Range Interpretation Comments POC-GLUCOSE METER 101 mg/dL 70-110 TESTED AT [place] [address] ([facility]) (test code = [facility] 1538) [address] POCT-GLUCOSE [id number] 12:59:00 Test Item Value Reference Range Interpretation Comments POC-GLUCOSE METER 80 mg/dL 70-110 TESTED AT [place] [address] ([facility]) (test code = [facility] [address] 1538) POCT-GLUCOSE [id number] 12:07:00 Test Item Value Reference Range Interpretation Comments POC-GLUCOSE METER 76 mg/dL 70-110 TESTED AT [facility] 6720 (BEAKER) (test code = JOSE Samuels [facility] [address] 1538) POCT-GLUCOSE [id number] 06:18:00 Test Item Value Reference Range Interpretation Comments POC-GLUCOSE METER 86 mg/dL 70-110 TESTED AT [facility] 6720 (BEAKER) (test code = JOSE Samuels [facility] [address] 1538) [id number] 06:06:00 Test Item Value Reference Range Interpretation Comments PHOSPHORUS (BEAKER) (test code = 2.8 mg/dL 2.3-4.7 604) Once on admission and Daily AM afterwardsOnce on admission and Daily AM [id number] 06:06:00 Test Item Value Reference Range Interpretation Comments MAGNESIUM (BEAKER) (test code = 1.8 mg/dL 1.6-2.6 627) Once on admission and Daily AM afterwardsOnce on admission and Daily AM afterwardsCOMPREHENSIVE METABOLIC [id number] 06:06:00 Test Item Value Reference Range Interpretation [...] Daily AM afterwardsCBC W/PLT COUNT & AUTO [id number] 06:01:00 Test Item Value Reference Range Interpretation [...] K/ L 0.00-0.20 (test code = 417) [id number] 01:40:00 Test Item Value Reference Range Interpretation Comments POTASSIUM (BEAKER) (test code = 4.0 meq/L 3.5-5.1 379) [id number] 01:40:00 Test Item Value Reference Range Interpretation Comments SODIUM (BEAKER) (test code = 381) 138 meq/L 136-145 POCT-GLUCOSE [id number] 00:19:00 Test Item Value Reference Range Interpretation Comments POC-GLUCOSE METER 89 mg/dL 70-110 TESTED AT [facility] 6720 (BEAKER) (test code = [place] [address] 1538) [id number] 21:37:00 Test Item Value Reference Range Interpretation Comments SODIUM (BEAKER) (test code = 381) 137 meq/L 136-145 [id number] 19:02:00 Test Item Value Reference Range Interpretation Comments PARTIAL THROMBOPLASTIN TIME 24.9 seconds 22.5-36.0 (BEAKER) (test code = 760) PROTHROMBIN [id number] 19:01:00 Test Item Value Reference Range Interpretation Comments PROTIME (BEAKER) (test code = 13.8 seconds 11.7-14.7 759) INR (BEAKER) (test code = 370) 1.1 <=5.9 RECOMMENDED COUMADIN/WARFARIN INR THERAPY RANGESSTANDARD DOSE: 2.0 - 3.0 Includes: PROPHYLAXIS forvenous thrombosis, systemic embolization; TREATMENT for venous thrombosis and/or pulmonary embolus.HIGH RISK: Target INR is 2.5-3.5 for patients with mechanical heart valves.[id number] 19:00:00 Test Item Value Reference Range Interpretation Comments POTASSIUM (BEAKER) (test code = 4.0 meq/L 3.5-5.1 379) [id number] 19:00:00 Test Item Value Reference Range Interpretation Comments SODIUM (BEAKER) (test code = 381) 137 meq/L 136-145 HEPATIC FUNCTION [id number] 19:00:00 Test Item Value Reference Range Interpretation [...] code = 16 U/L 6-55 347) POCT-GLUCOSE [id number] 18:42:00 Test Item Value Reference Range Interpretation Comments POC-GLUCOSE METER 96 mg/dL 70-110 TESTED AT [facility] 67 (BEAKER) (test code = [place] [address] 1538) PLATELET AGGREGATION: FUNCTION [id number] 11:40:00 Test Item Value Reference Range Interpretation Comments WEAK ADP 50 % 60-91 L RESULT(BEAKER) (test code = 2135) PLATELET FUNCTION 50-59% indicates mild SCREEN INTERP platelet dysfunction (BEAKER) (test code = 2173) [id number] Justin Goel MD (BEAKER) (test code = (electronic signature) 4461) PLATELET COUNT AGG 124 K/CU MM 150-430 L (BEAKER) (test code = 2656) [id number] 05:44:00 Test Item Value Reference Range Interpretation Comments PHOSPHORUS (BEAKER) (test code = 3.1 mg/dL 2.3-4.7 604) [id number] 05:44:00 Test Item Value Reference Range Interpretation Comments MAGNESIUM (BEAKER) (test code = 1.9 mg/dL 1.6-2.6 627) COMPREHENSIVE METABOLIC [id number] 05:44:00 Test Item Value Reference Range Interpretation [...] PATIEN TS. CBC W/PLT COUNT & AUTO [id number] 05:29:00 Test Item Value Reference Range Interpretation [...] code = 417) 0.00URINALYSIS W/ REFLEX URINE [id number] 22:30:00 Test Item Value Reference Range Interpretation [...] (test code = 2795) TSH/FREE T4 IF [id number] 14:45:00 Test Item Value Reference Range Interpretation Comments THYROID STIMULATING HORMONE 2.66 uIU/mL 0.35-4.94 (BEAKER) (test code = 772) VITAMIN B12 AND [id number] 14:45:00 Test Item Value Reference Range Interpretation Comments VITAMIN B12 (BEAKER) (test code = 815 pg/mL 213-816 774) FOLATE (BEAKER) (test code = 362) 15.4 ng/mL >=7.0 Effective 07/06/2014: Folate Reference Range ChangeNew: >=7.0 Previous: >=5.4VALPROIC ACID LEVEL, [id number] 14:18:00 Test Item Value Reference Range Interpretation Comments VALPROIC ACID TOTAL (BEAKER) (test 24 ug/mL 50-100 L code = 924) Therapeutic range for some clinical conditions may be >100 ug/mLAMMONIA 2016-12-23 14:02:00 Test Item Value Reference Range Interpretation Comments AMMONIA (BEAKER) (test code = 348) 35 mol/L 18-72 BLOOD GAS, [id number] 13:50:00 Test Item Value Reference Range Interpretation [...] (BEAKER) (test code = 1819) 21.0 % [id number] 10:49:00 Test Item Value Reference Range Interpretation [...] 2.5-3.5 for patients with mechanical heart valves.PROTHROMBIN TIME/[id number] 10:48:00 Test Item Value Reference Range Interpretation Comments PROTIME (BEAKER) (test code = 14.7 seconds 11.7-14.7 759) INR (BEAKER) (test code = 370) 1.2 <=5.9 RECOMMENDED COUMADIN/WARFARIN INR THERAPY RANGESSTANDARD DOSE: 2.0 - 3.0 Includes: PROPHYLAXIS forvenous thrombosis, systemic embolization; TREATMENT for venous thrombosis and/or pulmonary embolus.HIGH RISK: Target INR is 2.5-3.5 for patients with mechanical heart valves.POCT-GLUCOSE [id number] 07:47:00 Test Item Value Reference Range Interpretation Comments POC-GLUCOSE METER 95 mg/dL 70-110 TESTED AT [facility] 6720 ([facility]) (test code = [place] [address] 1538) BASIC METABOLIC [id number] 04:59:00 Test Item Value Reference Range Interpretation [...] PATIEN TS. CBC W/PLT COUNT & AUTO [id number] 04:49:00 Test Item Value Reference Range Interpretation [...] L 0.00-0.20 (test code = 417) 0.00POCT-GLUCOSE [id number] 04:02:00 Test Item Value Reference Range Interpretation Comments POC-GLUCOSE METER 114 mg/dL 70-110 H TESTED AT [place] [address] ([facility]) (test code = [facility] 1538) [address] POCT-GLUCOSE [id number] 07:17:00 Test Item Value Reference Range Interpretation Comments POC-GLUCOSE METER 134 mg/dL 70-110 H TESTED AT [place] [address] ([facility]) (test code = [facility] 1538) [address] BASIC METABOLIC [id number] 03:52:00 Test Item Value Reference Range Interpretation [...] S NOT APPLICABLE FOR DIALYSIS PATIEN TS. [id number] 03:34:00 Test Item Value Reference Range Interpretation Comments MAGNESIUM (BEAKER) 2.1 mg/dL 1.6-2.6 Specimen slightly (test code = 627) hemolyzed [id number] 03:34:00 Test Item Value Reference Range Interpretation Comments PHOSPHORUS (BEAKER) 2.5 mg/dL 2.3-4.7 Specimen slightly (test code = 604) hemolyzed CBC W/PLT COUNT & AUTO [id number] 03:20:00 Test Item Value Reference Range Interpretation [...] L 0.00-0.20 (test code = 417) 0.00POCT-GLUCOSE [id number] 02:04:00 Test Item Value Reference Range Interpretation Comments POC-GLUCOSE METER 126 mg/dL 70-110 H TESTED AT [place] [address] ([facility]) (test code = [facility] 1538) [address] POCT-GLUCOSE [id number] 00:58:00 Test Item Value Reference Range Interpretation Comments POC-GLUCOSE METER 145 mg/dL 70-110 H TESTED AT [place] [address] ([facility]) (test code = [facility] 1538) [address] POCT-GLUCOSE [id number] 18:36:00 Test Item Value Reference Range Interpretation Comments POC-GLUCOSE METER 127 mg/dL 70-110 H TESTED AT [place] [address] ([facility]) (test code = [facility] 1538) [address] PLATELET AGGREGATION: FUNCTION [id number] 09:33:00 Test Item Value Reference Range Interpretation Comments WEAK ADP 53 % 60-91 L RESULT(BEAKER) (test code = 2138) PLATELET FUNCTION 50-59% indicates mild SCREEN INTERP platelet dysfunction (BEAKER) (test code = 2173) SDET-VHZECXGYCNP-1158 Teja Ferreira M.D. (BEAKER) (test code = (electonic signature) 0158) PLATELET COUNT AGG 120 K/CU MM 150-430 L (BEAKER) (test code = 2656) [id number] 04:59:00 Test Item Value Reference Range Interpretation Comments MAGNESIUM (BEAKER) 2.1 mg/dL 1.6-2.6 Specimen slightly (test code = 627) hemolyzed Once on admission and Daily AM afterwardsOnce on admission and Daily AM afterwardsOnce on admission and Daily AM [id number] 04:59:00 Test Item Value Reference Range Interpretation [...] Specimen slightly (test code = 347) hemolyzed [id number] 22:52:00 Test Item Value Reference Range Interpretation [...] patients with mechanical heart valves.VALPROIC ACID LEVEL, [id number] 20:34:00 Test Item Value Reference Range Interpretation Comments VALPROIC ACID TOTAL (BEAKER) (test 19 ug/mL 50-100 L code = 924) Therapeutic range for some clinical conditions may be >100 ug/mLCREATINE KINASE (CK), TOTAL AND [id number] 10:02:00 Test Item Value Reference Range Interpretation Comments CREATINE KINASE TOTAL (BEAKER) 106 U/L 29-200 (test code = 380) CREATINE KINASE-MB (BEAKER) (test 1.4 ng/mL 0.0-6.6 code = 750) CREATINE KINASE-MB INDEX (BEAKER) 1.3 % (test code = 395) Effective 07/06/2014: CK-MB Reference Range ChangeNew: 0.0-6.6 Previous: 0.0-4.9CK-MB Reference Range:<6.7 Normal6.7-10.0 Borderline>10.0 AbnormalTROPONIN [id number] 10:00:00 Test Item Value Reference Range Interpretation [...] Previous: 0.0-4.9CK-MB Reference Range:<6.7 Normal6.7-10.0 Borderline>10.0 AbnormalTROPONIN [id number] 00:05:00 Test Item Value Reference Range Interpretation [...] Previous: 0.0-4.9CK-MB Reference Range:<6.7 Normal6.7-10.0 Borderline>10.0 AbnormalTROPONIN [id number] 18:06:00 Test Item Value Reference Range Interpretation [...] acute neurological disease, and persistent tachyarrhythmia.COMPREHENSIVE METABOLIC [id number] 18:03:00 Test Item Value Reference Range Interpretation [...] PATIEN TS. CBC W/PLT COUNT & AUTO [id number] 17:43:00 Test Item Value Reference Range Interpretation [...] K/ L 0.00-0.20 (test code = 417) [id number] 05:44:00 Test Item Value Reference Range Interpretation Comments MAGNESIUM (BEAKER) (test code = 2.0 mg/dL 1.6-2.6 627) [id number] 11:00:00 Test Item Value Reference Range Interpretation Comments RPR SCREEN (BEAKER) (test code = Nonreactive Nonreactive 420) HEMOGLOBIN [id number] 10:35:00 Test Item Value Reference Range Interpretation Comments HEMOGLOBIN A1C (BEAKER) (test code = 5.1 % 4.3-6.1 368) CBC W/PLT COUNT & AUTO [id number] 07:10:00 Test Item Value Reference Range Interpretation [...] L 0.00-0.20 (test code = 417) 0.00VITAMIN [id number] 06:57:00 Test Item Value Reference Range Interpretation Comments VITAMIN B12 (BEAKER) (test code = 584 pg/mL 213-816 774) TSH/FREE T4 IF [id number] 06:57:00 Test Item Value Reference Range Interpretation Comments THYROID STIMULATING HORMONE 0.98 uIU/mL 0.35-4.94 (BEAKER) (test code = 772) [id number] 06:15:00 Test Item Value Reference Range Interpretation Comments MAGNESIUM (BEAKER) (test code = 2.1 mg/dL 1.6-2.6 627) COMPREHENSIVE METABOLIC [id number] 06:15:00 Test Item Value Reference Range Interpretation [...] APPLICABLE FOR DIALYSIS PATIEN TS. BASIC METABOLIC [id number] 06:15:00 Test Item Value Reference Range Interpretation [...] NOT APPLICABLE FOR DIALYSIS PATIEN TS. LIPID [id number] 06:15:00 Test Item Value Reference Range Interpretation [...] 130-159 High 160-189 Very High >=190BASIC METABOLIC [id number] 05:07:00 Test Item Value Reference Range Interpretation [...] PATIEN TS. CBC W/PLT COUNT & AUTO [id number] 05:00:00 Test Item Value Reference Range Interpretation [...] 0.00-0.20 (test code = 417) 0.00BASIC METABOLIC [id number] 19:13:00 Test Item Value Reference Range Interpretation [...] PATIEN TS. CBC W/PLT COUNT & AUTO [id number] 19:08:00 Test Item Value Reference Range Interpretation [...] L 0.00-0.20 (test code = 417) 0.00POCT-GLUCOSE [id number] 14:07:00 Test Item Value Reference Range Interpretation Comments POC-GLUCOSE METER 99 mg/dL 70-110 TESTED AT [facility] 6720 (BEAKER) (test code = [facility] [id number] 1538) POCT-GLUCOSE [id number] 13:05:00 Test Item Value Reference Range Interpretation Comments POC-GLUCOSE METER 115 mg/dL 70-110 H TESTED AT [facility] 6720 (BEAKER) (test code = [facility] 1538) [id number] POCT-GLUCOSE [id number] 07:34:00 Test Item Value Reference Range Interpretation Comments POC-GLUCOSE METER 145 mg/dL 70-110 H TESTED AT [facility] 6720 (BEAKER) (test code = JOSE Samuels [place] 1538) [address] [id number] 06:56:00 Test Item Value Reference Range Interpretation Comments PHOSPHORUS (BEAKER) (test code = 3.3 mg/dL 2.3-4.7 604) [id number] 06:56:00 Test Item Value Reference Range Interpretation Comments MAGNESIUM (BEAKER) (test code = 1.9 mg/dL 1.6-2.6 627) BASIC METABOLIC [id number] 06:56:00 Test Item Value Reference Range Interpretation [...] PATIEN TS. CBC W/PLT COUNT & AUTO [id number] 06:34:00 Test Item Value Reference Range Interpretation [...] K/ L 0.00-0.20 (test code = 417) [id number] 06:29:00 Test Item Value Reference Range Interpretation Comments PARTIAL THROMBOPLASTIN TIME 30.9 seconds 22.5-36.0 (BEAKER) (test code = 760) PROTHROMBIN [id number] 06:28:00 Test Item Value Reference Range Interpretation Comments PROTIME ([facility]) (test code = 14.0 seconds 11.7-14.7 759) INR ([facility]) (test code = 370) 1.1 <=5.9 RECOMMENDED COUMADIN/WARFARIN INR THERAPY RANGESSTANDARD DOSE: 2.0 - 3.0 Includes: PROPHYLAXIS forvenous thrombosis, systemic embolization; TREATMENT for venous thrombosis and/or pulmonary embolus.HIGH RISK: Target INR is 2.5-3.5 for patients with mechanical heart valves.POCT-GLUCOSE [id number] 05:42:00 Test Item Value Reference Range Interpretation Comments POC-GLUCOSE METER 90 mg/dL 70-110 TESTED AT [place] [address] ([facility]) (test code = [facility] [address] 1538) POCT-GLUCOSE [id number] 23:43:00 Test Item Value Reference Range Interpretation Comments POC-GLUCOSE METER 118 mg/dL 70-110 H TESTED AT [place] [address] ([facility]) (test code = [facility] 1538) [address] POCT-GLUCOSE [id number] 17:19:00 Test Item Value Reference Range Interpretation Comments POC-GLUCOSE METER 127 mg/dL 70-110 H TESTED AT [place] [address] ([facility]) (test code = [facility] 1538) [address] POCT-GLUCOSE [id number] 12:30:00 Test Item Value Reference Range Interpretation Comments POC-GLUCOSE METER 103 mg/dL 70-110 TESTED AT [place] [address] ([facility]) (test code = [facility] 1538) [address] POCT-GLUCOSE [id number] 09:52:00 Test Item Value Reference Range Interpretation Comments POC-GLUCOSE METER 137 mg/dL 70-110 H TESTED AT [place] [address] ([facility]) (test code = [facility] 1538) [address] CBC W/PLT COUNT & AUTO [id number] 06:43:00 Test Item Value Reference Range Interpretation Comments WHITE BLOOD CELL COUNT ([facility]) 4.9 K/ L 4.0-10.0 (test code = 775) RED BLOOD CELL COUNT (BEAKER) 4.36 M/ L 4.20-5.80 (test code = 761) HEMOGLOBIN (BEAKER) (test code = 13.2 GM/DL 13.0-16.8 410) HEMATOCRIT (BEAKER) (test code = 39.1 % 40.0-50.0 L [...] K/ L 0.00-0.20 (test code = 417) [id number] 06:39:00 Test Item Value Reference Range Interpretation Comments PHOSPHORUS (BEAKER) (test code = 3.2 mg/dL 2.3-4.7 604) [id number] 06:39:00 Test Item Value Reference Range Interpretation Comments MAGNESIUM (BEAKER) (test code = 1.9 mg/dL 1.6-2.6 627) BASIC METABOLIC [id number] 06:39:00 Test Item Value Reference Range Interpretation [...] NOT APPLICABLE FOR DIALYSIS PATIEN TS. PROTHROMBIN [id number] 06:31:00 Test Item Value Reference Range Interpretation Comments PROTIME (BEAKER) (test code = 13.7 seconds 11.7-14.7 759) INR (BEAKER) (test code = 370) 1.1 <=5.9 RECOMMENDED COUMADIN/WARFARIN INR THERAPY RANGESSTANDARD DOSE: 2.0 - 3.0 Includes: PROPHYLAXIS forvenous thrombosis, systemic embolization; TREATMENT for venous thrombosis and/or pulmonary embolus.HIGH RISK: Target INR is 2.5-3.5 for patients with mechanical heart valves.[id number] 06:31:00 Test Item Value Reference Range Interpretation Comments PARTIAL THROMBOPLASTIN TIME 30.3 seconds 22.5-36.0 (BEAKER) (test code = 760) POCT-GLUCOSE [id number] 21:46:00 Test Item Value Reference Range Interpretation Comments POC-GLUCOSE METER 97 mg/dL 70-110 TESTED AT [facility] (BEAKER) (test code = [facility] [address] 1538) POCT-GLUCOSE [id number] 12:19:00 Test Item Value Reference Range Interpretation Comments POC-GLUCOSE METER 118 mg/dL 70-110 H TESTED AT [place] [address] ([facility]) (test code = [facility] 1538) [address] POCT-GLUCOSE [id number] 08:50:00 Test Item Value Reference Range Interpretation Comments POC-GLUCOSE METER 135 mg/dL 70-110 H TESTED AT [place] [address] ([facility]) (test code = [facility] 1538) [address] POCT-GLUCOSE [id number] 07:45:00 Test Item Value Reference Range Interpretation Comments POC-GLUCOSE METER 94 mg/dL 70-110 TESTED AT [place] [address] ([facility]) (test code = [facility] [address] 1538) CBC W/PLT COUNT & AUTO [id number] 05:32:00 Test Item Value Reference Range Interpretation [...] K/ L 0.00-0.20 (test code = 417) [id number] 05:27:00 Test Item Value Reference Range Interpretation Comments PHOSPHORUS (BEAKER) (test code = 3.4 mg/dL 2.3-4.7 604) [id number] 05:27:00 Test Item Value Reference Range Interpretation Comments MAGNESIUM (BEAKER) (test code = 2.0 mg/dL 1.6-2.6 627) BASIC METABOLIC [id number] 05:27:00 Test Item Value Reference Range Interpretation [...] I S NOT APPLICABLE FOR DIALYSIS PATIEN JENNIFER. [id number] 05:09:00 Test Item Value Reference Range Interpretation Comments PARTIAL THROMBOPLASTIN TIME 29.4 seconds 22.5-36.0 ([facility]) (test code = 760) PROTHROMBIN [id number] 05:08:00 Test Item Value Reference Range Interpretation Comments PROTIME ([facility]) (test code = 13.6 seconds 11.7-14.7 759) INR ([facility]) (test code = 370) 1.0 <=5.9 RECOMMENDED COUMADIN/WARFARIN INR THERAPY RANGESSTANDARD DOSE: 2.0 - 3.0 Includes: PROPHYLAXIS forvenous thrombosis, systemic embolization; TREATMENT for venous thrombosis and/or pulmonary embolus.HIGH RISK: Target INR is 2.5-3.5 for patients with mechanical heart valves.POCT-GLUCOSE [id number] 18:02:00 Test Item Value Reference Range Interpretation Comments POC-GLUCOSE METER 120 mg/dL 70-110 H TESTED AT [place] [address] ([facility]) (test code = JOSE Samuels [facility] 1538) [address] POCT-GLUCOSE [id number] 12:36:00 Test Item Value Reference Range Interpretation Comments POC-GLUCOSE METER 109 mg/dL 70-110 TESTED AT [place] [address] ([facility]) (test code = JOSE Samuels [facility] 1538) [address] POCT-GLUCOSE [id number] 07:59:00 Test Item Value Reference Range Interpretation Comments POC-GLUCOSE METER 104 mg/dL 70-110 TESTED AT [place] [address] ([facility]) (test code = [employer] [place] [address]) [address] POCT-GLUCOSE [id number] 06:56:00 Test Item Value Reference Range Interpretation Comments POC-GLUCOSE METER 102 mg/dL 70-110 TESTED AT [place] [address] ([facility]) (test code = [facility] [employer] [place] 1538) [address] TROPONIN [id number] 02:03:00 Test Item Value Reference Range Interpretation Comments TROPONIN I ([facility]) (test code = 397) < [...] renalfailure, acidosis, acute neurological disease, and persistent tachyarrhythmia.[id number] 01:55:00 Test Item Value Reference Range Interpretation Comments MAGNESIUM (BEAKER) 2.2 mg/dL 1.6-2.6 Specimen slightly (test code = 627) hemolyzed [id number] 01:55:00 Test Item Value Reference Range Interpretation Comments PHOSPHORUS (BEAKER) 2.9 mg/dL 2.3-4.7 Specimen slightly (test code = 604) hemolyzed BASIC METABOLIC [id number] 01:55:00 Test Item Value Reference Range Interpretation [...] I S NOT APPLICABLE FOR DIALYSIS PATILORE RODRIGUEZ. [id number] 01:33:00 Test Item Value Reference Range Interpretation Comments PARTIAL THROMBOPLASTIN TIME 30.2 seconds 22.5-36.0 (BEAKER) (test code = 760) PROTHROMBIN [id number] 01:32:00 Test Item Value Reference Range Interpretation [...] L 0.00-0.20 (test code = 417) 0.00POCT-GLUCOSE [id number] 00:13:00 Test Item Value Reference Range Interpretation Comments POC-GLUCOSE METER 104 mg/dL 70-110 TESTED AT [place] [address] ([facility]) (test code = JOSE TURNER 1538) [address] POCT-GLUCOSE [id number] 17:43:00 Test Item Value Reference Range Interpretation Comments POC-GLUCOSE METER 131 mg/dL 70-110 H TESTED AT [place] [address] ([facility]) (test code = [place] 1538) [address] TROPONIN [id number] 17:29:00 Test Item Value Reference Range Interpretation Comments TROPONIN I ([facility]) (test code = 397) < [...] acidosis, acute neurological disease, and persistent tachyarrhythmia.POCT-GLUCOSE [id number] 13:05:00 Test Item Value Reference Range Interpretation Comments POC-GLUCOSE METER 94 mg/dL 70-110 TESTED AT [place] [address] (BEAKER) (test code = JOSE Samuels [facility] [address] 1538) RAPID DRUG SCREEN, [id number] 09:31:00 Test Item Value Reference Range Interpretation [...] ng/mLAmphetamine/ 1000 ng/mL MethamphetamineOxycodone 300 ng/mLURINALYSIS W/ [id number] 09:29:00 Test Item Value Reference Range Interpretation [...] 516) SOURCE(BEAKER) (test code = Urine, [place] 0204) PLATELET AGGREGATION: FUNCTION [id number] 08:52:00 Test Item Value Reference Range Interpretation Comments WEAK ADP 13 % 60-91 L RESULT(BEAKER) (test code = 2135) PLATELET FUNCTION 0-39% indicates marked SCREEN INTERP platelet dysfunction (BEAKER) (test code = 2173) [id number] Racquel Acevedo MD (BEAKER) (test code = (electronic signature) 8899) PLATELET COUNT AGG 141 K/CU MM 150-430 L (BEAKER) (test code = 2656) TROPONIN [id number] 05:06:00 Test Item Value Reference Range Interpretation [...] renalfailure, acidosis, acute neurological disease, and persistent tachyarrhythmia.[id number] 04:56:00 Test Item Value Reference Range Interpretation Comments MAGNESIUM (BEAKER) 2.0 mg/dL 1.6-2.6 Specimen slightly (test code = 627) hemolyzed [id number] 04:56:00 Test Item Value Reference Range Interpretation Comments PHOSPHORUS (BEAKER) 1.9 mg/dL 2.3-4.7 L Specimen slightly (test code = 604) hemolyzed BASIC METABOLIC [id number] 04:56:00 Test Item Value Reference Range Interpretation [...] I S NOT APPLICABLE FOR DIALYSIS PATIEN [id number] 04:49:00 Test Item Value Reference Range Interpretation Comments COL/EPI CLOSURE TIME (BEAKER) 104 Seconds 78-191 (test code = 1801) COL/ADP CLOSURE TIME (BEAKER) 65 Seconds 43-122 (test code = 1802) PLATELET COUNT AGG (BEAKER) (test 148 K/CU MM 150-430 L code = 2656) CBC W/PLT COUNT & AUTO [id number] 04:34:00 Test Item Value Reference Range Interpretation [...]
[2021-12-03 12:33] LABS: Absolute Lymphocytes (CBC) 0.7 K/uL (0.7-4.9); MPV 7.5 fL (7.6-11.3); RBC Red Blood Cell Count 4.13 M/uL (4.33-5.43)
[2021-12-03 12:34] LABS: Protime INR 1.04
[2021-12-03 12:48] LABS: ALT/SGPT 35 U/L (12-78); Albumin 3.6 g/dL (3.4-5.0); Alkaline Phosphatase 104 U/L (45-117); BUN Blood Urea Nitrogen 14 mg/dL (7-18); Bicarbonate 25 mmol/L (21-32); Bilirubin Total 0.3 mg/dL (0.2-1.0); Glucose Level 103 mg/dL (74-106); Lipase 147 U/L (73-393); NT PRO-BNP 83 pg/mL (<125); Sodium Level 138 mmol/L (136-145)
[2021-12-03 12:49] LABS: AST/SGOT 26 U/L (15-37); Bilirubin Direct < 0.1 mg/dL (0-0.2); Magnesium 2.1 mg/dL (1.8-2.4); Potassium 4.5 mmol/L (3.5-5.1)
--- NOTE | 2021-12-03 14:09 | RAD REPORT ---
EXAM DESCRIPTION: CT - Chest For Pe Angio - 12/03/2021 1:47 pm CLINICAL HISTORY: Chest pain COMPARISON: None. TECHNIQUE: Dynamically enhanced axial 3 mm thick images of the chest were obtained during administra tion of <100> mL Isovue 370 IV contrast. Coronal and oblique reconstruction images were generated and reviewed. Exam utilizes a protocol for optimal evaluation of pulmonary arterial tree. Maximum intensity projections 3D imaging was utilized All CT scans are performed using dose optimization technique as appropriate and may include automated exposure control or mA/KV adjustment according to patient size. FINDINGS: A pulmonary embolus is not seen. A thoracic aortic aneurysm is not noted. A pleural effusion is not seen. A pericardial effusion is not seen. A lung consolidation is not present. Calcified pleural plaques are present IMPRESSION: Negative for a pulmonary embolism.
--- NOTE | 2021-12-03 14:10 | RAD REPORT ---
EXAM DESCRIPTION: Edgar Single View12/03/2021 1:16 pm CLINICAL HISTORY: Chest pain COMPARISON: 2018 FINDINGS: The lungs appear clear of acute infiltrate. The heart is normal size Calcified pleural plaques are present IMPRESSION: No acute abnormalities displayed
--- NOTE | 2021-12-03 14:16 | RAD REPORT ---
EXAM DESCRIPTION: CT - Abdomen Pelvis W Contrast - 12/03/2021 1:47 pm CLINICAL HISTORY: Abdominal pain COMPARISON: 2019 TECHNIQUE: Computed axial tomography of the abdomen pelvis was obtained. 100 cc Isovue-300 was admin istered intravenously. Oral contrast was not requested which limits evaluation of bowel. All CT scans are performed using dose optimization technique as appropriate and may include automated exposure control or mA/KV adjustment according to patient size. FINDINGS: The liver, spleen, pancreas, adrenal and kidneys appear unremarkable. There is no evidence of diverticulitis. Moderate amount of stool within the colon. The prostate gland is moderately to markedly enlarged. Small right inguinal hernia. Filter within the IVC. Small hiatal hernia IMPRESSION: No acute abnormality is displayed.
[2021-12-03 15:43] LABS: Urine Blood Negative (Negative); Urine Glucose Negative (Negative); Urine Protein Negative (Negative); Urine Specific Gravity 1.015 (1.005-1.030)
--- NOTE | 2021-12-03 16:48 | EDPHYS ---
Physician Documentation [facility] Name: Nelson Murilol Age: 76 yrs Sex: Male : 1945 Arrival Date: 12/03/2021 Time: 12:13 Bed Waiting Private MD: CARMENCITA Physician Claude Turner HPI: 12/03 12:40 This 76 yrs old Male presents to ER via Unassigned with complaints of CHEST dariel PAIN/ ABDOMEN PAIN, LEFT UPPER QUADRANT. 12:40 The patient or guardian reports chest pain that is located primarily in the anterior dariel chest wall, left. Onset: just prior to arrival. The patient presents with abdominal pain in the left upper quadrant. Onset: The symptoms/episode began/occurred just prior to arrival. The pain does not radiate. The symptoms do not radiate. Associated signs and symptoms: none. The symptoms are described as crampy. Modifying factors: The symptoms are alleviated by nothing, the symptoms are aggravated by nothing. Associated signs and symptoms: Pertinent positives: abdominal pain, nausea. The chest pain is described as aching. 16:27 Duration: The patient or guardian reports a single episode, that is still ongoing, but dariel improving. Modifying factors: The symptoms are alleviated by remaining still, the symptoms are aggravated by movement, palpation of area. Severity of pain: At its worst the pain was mild. EMS care prior to arrival includes: see report. Severity of pain: in the emergency department the pain has improved mildly. The patient has not experienced similar symptoms in the past. 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 - Social history:: Smoking status: Patient denies any tobacco usage or history of. - Family history:: not pertinent. ROS: 12:40 Constitutional: Negative for fever, chills, and weight loss, Eyes: Negative for injury, dariel pain, redness, and discharge, ENT: Negative for injury, pain, and discharge, Neck: Negative for injury, pain, and swelling, Cardiovascular: Negative for chest pain, palpitations, and edema, Respiratory: Negative for shortness of breath, cough, wheezing, and pleuritic chest pain, Back: Negative for injury and pain, : Negative for injury, bleeding, discharge, and swelling, MS/Extremity: Negative for injury and deformity, Skin: Negative for injury, rash, and discoloration, Neuro: Negative for headache, weakness, numbness, tingling, and seizure, Psych: Negative for depression, anxiety, suicide ideation, homicidal ideation, and hallucinations, Allergy/Immunology: Negative for hives, rash, and allergies, Endocrine: Negative for neck swelling, polydipsia, polyuria, polyphagia, and marked weight changes, Hematologic/Lymphatic: Negative for swollen nodes, abnormal bleeding, and unusual bruising. 12:40 Abdomen/GI: Positive for abdominal pain, abdominal cramps, abdominal distension, of the left upper quadrant. Exam: 12:40 Constitutional: This is a well developed, well nourished patient who is awake, alert, dariel and in no acute distress. Head/Face: Normocephalic, atraumatic. Eyes: Pupils equal round and reactive to light, extra-ocular motions intact. Lids and lashes normal. Conjunctiva and sclera are non-icteric and not injected. Cornea within normal limits. Periorbital areas with no swelling, redness, or edema. ENT: Nares patent. No nasal discharge, no septal abnormalities noted. Tympanic membranes are normal and external auditory canals are clear. Oropharynx with no redness, swelling, or masses, exudates, or evidence of obstruction, uvula midline. Mucous membranes moist. Neck: Trachea midline, no thyromegaly or masses palpated, and no cervical lymphadenopathy. Supple, full range of motion without nuchal rigidity, or vertebral point tenderness. No Meningismus. Cardiovascular: Regular rate and rhythm with a normal S1 and S2. No gallops, murmurs, or rubs. Normal PMI, no JVD. No pulse deficits. Respiratory: Lungs have equal breath sounds bilaterally, clear to auscultation and percussion. No rales, rhonchi or wheezes noted. No increased work of breathing, no retractions or nasal flaring. Back: No spinal tenderness. No costovertebral tenderness. Full range of motion. Male : Normal genitalia with no discharge or lesions. Skin: Warm, dry with normal turgor. Normal color with no rashes, no lesions, and no evidence of cellulitis. MS/ Extremity: Pulses equal, no cyanosis. Neurovascular intact. Full, normal range of motion. Neuro: Awake and alert, GCS 15, oriented to person, place, time, and situation. Cranial nerves II-XII grossly intact. Motor strength 5/5 in all extremities. Sensory grossly intact. Cerebellar exam normal. Normal gait. Psych: Awake, alert, with orientation to person, place and time. Behavior, mood, and affect are within normal limits. 12:40 Chest/axilla: Inspection: normal, Palpation: tenderness, that is mild, Axilla: are normal, Lymph nodes: lymphadenopathy is not appreciated. 12:40 Cardiovascular: Rate: normal, Rhythm: regular, Pulses: Pulses are 4+ in bilateral radial, brachial, femoral, popliteal, posterior tibial and and dorsalis pedis arteries.. Heart sounds: normal, Edema: is not appreciated, JVD: is not appreciated. 12:40 ECG was reviewed by the Attending Physician. 16:25 ECG was reviewed by the Attending Physician. [facility] Vital Signs: 16:48 BP 135 / 95; Pulse 67; Resp 18; Temp 97.2(TE); Pulse Ox 98% on R/A; Weight 81.65 kg jb4 (R); Height 5 ft. 8 in. (172.72 cm) (R); Pain 0/10; 16:48 Body Mass Index 27.37 (81.65 kg, 172.72 cm) jb4 MDM: 12:45 Differential diagnosis: abnormal EKG, acute myocardial infarction, acute pericarditis, dariel anxiety, coronary artery disease chest wall pain, Cholelithiasis hiatal hernia, pancreatitis, pleurisy, pneumonia, pneumothorax, pulmonary embolus, stable angina, thoracic aortic disection, bowel obstruction, coronary artery disease, cholecystitis, gastritis, Mesenteric ischemia or infarction, myocardia ischemia or infarction, non-specific abd pain, pancreatitis, Peptic Ulcer Disease, Perf. Duodenal Ulcer, Prostatitis, Ureterolithiasis. HEART Score: History: Slightly Suspicious (0), ECG: Normal (0), Age: > or = 65 years (2), Risk Factors: > or = 3 Risk factors for atherosclerotic disease (2), [Hypercholesterolemia] [Hypertension] [+ Family HX] Troponin: < or = 1 x Normal Limit (0). The patient was given aspirin in the Emergency Department. The patient's deep vein thrombosis risk score was calculated as follows: Total Score: 0. This patient was found to be at low risk for a deep vein thrombosis by using the Well's assessment criteria. The patient's pulmonary embolism risk score was calculated as follows: Total Score: 0-2 points. This patient was found to be at low risk for a pulmonary embolism by using the Well's assessment criteria. ANNY Risk Score: 1 - patient's age is greater or equal to 65 years, 1 - Three or more CAD risk factors, 1- Known CAD, 1 - ASA use in past 7 days, 1 - Recent [<24hrs] Severe Angina, TOTAL SCORE = 5. Data reviewed: vital signs, nurses notes, EMS record, lab test result(s), EKG, radiologic studies, CT scan, plain films. Data interpreted: monitoring engineer: rate is 62 beats/min, rhythm is regular, Pulse oximetry: on room air is 100 %. Test interpretation: by ED physician or midlevel provider: ECG, plain radiologic studies. Counseling: I had a detailed discussion with the patient and/or guardian regarding: the historical points, exam findings, and any diagnostic results supporting the discharge/admit diagnosis, lab results, radiology results, the need for further work-up and treatment in the hospital. 16:29 ED course: no cp , pain fully resolved, originated in the left upper quadrant, made dariel worse with palpation and rom, no rash, shingles evidence. 16:47 Patient medically screened. 12/03 12:17 Order name: Basic Metabolic Panel; Complete Time: 14:11 12/03 12:17 Order name: CBC with Diff; Complete Time: 14:11 12/03 12:17 Order name: LFT's; Complete Time: 14:11 12/03 12:17 Order name: Magnesium; Complete Time: 14:11 12/03 12:17 Order name: NT PRO-BNP; Complete Time: 14:11 12/03 12:17 Order name: PT-INR; Complete Time: 14:11 12/03 12:17 Order name: Troponin HS; Complete Time: 14:11 12/03 12:17 Order name: XRAY Chest (1 view); Complete Time: 14:11 [facility] 12/03 12:17 Order name: Lipase; Complete Time: 14:11 [facility] 12/03 12:17 Order name: SARS-COV-2 RT PCR (Document "Date of Onset" if Symptomatic); Complete Time: dariel 16:15 12/03 12:17 Order name: CT Chest For PE Angio [facility] 12/03 12:17 Order name: CT Abd/Pelvis - IV Contrast Only; Complete Time: 14:52 [facility] 12/03 14:12 Order name: Troponin High Sensitivity: 4pm; Complete Time: 16:47 [facility] 12/03 15:44 Order name: Urine Dipstick-Ancillary; Complete Time: 16:15 [facility] 12/03 12:17 Order name: EKG; Complete Time: 12:17 [facility] 12/03 12:17 Order name: Cardiac monitoring [facility] 12/03 12:17 Order name: EKG - Nurse/Tech [facility] 12/03 12:17 Order name: IV Saline Lock [facility] 12/03 12:17 Order name: Labs collected and sent [facility] 12/03 12:17 Order name: O2 Per Protocol [facility] 12/03 12:17 Order name: O2 Sat Monitoring [facility] 12/03 12:17 Order name: Urine Dipstick-Ancillary (obtain specimen) [facility] 12/03 12:21 Order name: Chest For Pe Angio; Complete Time: 14:11 [facility] 12/03 14:52 Order name: EKG; Complete Time: 14:53 [facility] 12/03 14:52 Order name: EKG - Nurse/Tech; Complete Time: 15:07 dariel EC:40 Rate is 62 beats/min. Rhythm is regular. QRS [place] is Normal. SC interval is prolonged dariel at 228 msec. QRS interval is normal. QT interval is normal. No Q waves. T waves are Normal. No ST changes noted. Clinical impression: NSR w/ Non-specific ST/T Changes, 1st degree heart block, and No evidence of ischemia. Interpreted by me. Reviewed by me. 16:25 Rate is 72 beats/min. Rhythm is regular. QRS [place] is Normal. SC interval is normal. QRS dariel interval is normal. QT interval is normal. No Q waves. T waves are Normal. No ST changes noted. Clinical impression: Normal ECG and No evidence of ischemia. Interpreted by me. Reviewed by me. Administered Medications: No medications were administered Disposition Summary: 12/03/21 16:47 Discharge Ordered Location: Home dariel Problem: new dariel Symptoms: have improved dariel Condition: Stable dariel Diagnosis - Chest pain, unspecified dariel - Abdominal tenderness - left upper quardant dariel - Unilateral inguinal hernia, without obstruction or gangrene dariel Followup: dariel - With: Private Physician - When: 2 - 3 days - Reason: Recheck today's complaints, Continuance of care, Re-evaluation by your physician Followup: dariel - With: - When: 1 - 2 days - Reason: Recheck today's complaints, Continuance of care, Re-evaluation by your physician Discharge Instructions: - Discharge Summary Sheet dariel - Abdominal Pain, Adult dariel - Nonspecific Chest Pain, Adult dariel - Chest Wall Pain dariel - Chest Wall Pain, Islg-mb-[id number] dariel - Abdominal Pain, Adult, [id number]-[id number] dariel - Nonspecific Chest Pain, Adult, [id number]-[id number] dariel - Aspirin and Your Heart dariel Forms: - Medication Reconciliation Form dariel - Thank You Letter dariel - Antibiotic Education dariel - Prescription Opioid Use [facility] Prescriptions: - Pepcid 20 mg Oral Tablet - take 1 tablet by ORAL route every 12 hours for 10 days; 20 tablet; Refills: 0, dariel Product Selection Permitted - dicyclomine 20 mg Oral Tablet - take 1 tablet by ORAL route 4 times per day; 28 tablet; Refills: 0, Product [facility] Selection Permitted Signatures: Dispatcher [employer] Claude Prince MD MD cha Attema, Lee, ENTRY LEVEL INSTALLATION TECHNICIAN-C ENTRY LEVEL INSTALLATION TECHNICIAN-Cla1 Germán Buchanan RN RN jb4
--- NOTE | 2021-12-03 16:54 | ER ---
Nurse's Notes [facility] Name: Nelson Murillo Age: 76 yrs Sex: Male : 1945 Arrival Date: 12/03/2021 Time: 12:13 Bed Waiting Private MD: Diagnosis: Chest pain, unspecified;Abdominal tenderness-left upper quardant;Unilateral inguinal hernia, without obstruction or gangrene Presentation: 12/03 16:48 Chief complaint: Patient states: I am having sharp chest pain that started 1130 am jb4 while we were at [facility]. Coronavirus screen: At this time, the client does not indicate any symptoms associated with coronavirus-19. Ebola Screen: No symptoms or risks identified at this time. Initial Sepsis Screen: Does the patient meet any 2 criteria? No. Patient's initial sepsis screen is negative. Does the patient have a suspected source of infection? No. Patient's initial sepsis screen is negative. Risk Assessment: Do you want to hurt yourself or someone else? Patient reports no desire to harm self or others. Onset of symptoms was December 03, 2021. 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 - Social history:: Smoking status: Patient denies any tobacco usage or history of. - Family history:: not pertinent. Screenin:52 Abuse screen: Denies threats or abuse. Nutritional screening: No deficits noted. jb4 Tuberculosis screening: No symptoms or risk factors identified. Fall Risk None identified. Assessment: 16:52 General: Appears in no apparent distress. comfortable, Behavior is calm, cooperative, jb4 appropriate for age. Pain: Denies pain. Neuro: Level of Consciousness is awake, alert, obeys commands. Cardiovascular: Patient's skin is warm and dry. Respiratory: Airway is patent Respiratory effort is even, unlabored, Respiratory pattern is regular, symmetrical. GI: No signs and/or symptoms were reported involving the gastrointestinal system. : No signs and/or symptoms were reported regarding the genitourinary system. EENT: No signs and/or symptoms were reported regarding the EENT system. Derm: Skin is intact, Skin is pink, warm \T\ dry. Musculoskeletal: Circulation, motion, and sensation intact. Range of motion: intact in all extremities. Vital Signs: 16:48 BP 135 / 95; Pulse 67; Resp 18; Temp 97.2(TE); Pulse Ox 98% on R/A; Weight 81.65 kg jb4 (R); Height 5 ft. 8 in. (172.72 cm) (R); Pain 0/10; 16:48 Body Mass Index 27.37 (81.65 kg, 172.72 cm) jb4 ED Course: 12:13 Patient arrived in ED. em1 12:14 Claude Turner MD is Attending Physician. [facility] 13:17 XRAY Chest (1 view) In Process Unspecified. EDMS 13:49 Chest For Pe Angio In Process Unspecified. EDMS 13:49 CT Abd/Pelvis - IV Contrast Only In Process Unspecified. EDMS 16:23 Troponin High Sensitivity: 4pm Sent. 16:47 Scott Murray MD is Referral Physician. [facility] 16:49 Triage completed. jb4 16:49 Arm band placed on right wrist. jb4 16:52 No provider procedures requiring assistance completed. Patient did not have IV access jb4 during this emergency room visit. 16:52 Patient has correct armband on for positive identification. jb4 Administered Medications: No medications were administered Outcome: 16:47 Discharge ordered by . [facility] 16:52 Discharged to home ambulatory, with family. jb4 16:52 Condition: stable 16:52 Discharge instructions given to patient, family, Instructed on discharge instructions, follow up and referral plans. medication usage, Demonstrated understanding of instructions, follow-up care, medications, Prescriptions given X 2. 16:54 Patient left the ED. jb4 Signatures: Dispatcher [employer] EDMS Claude Turner MD MD cha Martinez, Eric em1 Germán Buchanan RN RN jb4 Chastity Ascencio
[2021-12-03 18:34] VITALS: BP 135/95; TEMP 97.2; O2SAT 98
== END 2021-12-03 16:54 | disposition home or self-care (01) ==
LOC: ER 12:05
DX: K40.90 Unilateral inguinal hernia, without obstruction or gangrene, not specified as recurrent (principal); R07.9 Chest pain, unspecified; I10 Essential (primary) hypertension; E78.00 Pure hypercholesterolemia, unspecified; Z86.73 Personal history of transient ischemic attack (TIA), and cerebral infarction without residual deficits; Z88.6 Allergy status to analgesic agent; Z88.8 Allergy status to other drugs, medicaments and biological substances; Z20.822 Contact with and (suspected) exposure to COVID-19
CPT/HCPCS: 93005 ×2; 85025; 80048; 36415; 83735; 85610; 80076; 81003; 84484 ×2; 83690; 83880; 71275; 74177; 71045; 99283; U0003; Q9967 ×2

== ENCOUNTER 2022-08-07 09:24 | Day surgery (SDC) | payer OTHER ==
--- NOTE | 2022-07-25 15:40 | RAD REPORT ---
EXAM DESCRIPTION: RAD - Chest Pa And Lat (2 Views) - 07/25/2022 3:25 pm CLINICAL HISTORY: Pre op pending urolift COMPARISON: CT chest 12/03/2021, portable chest is obtained 22 TECHNIQUE: Frontal and lateral views of the chest were obtained. FINDINGS: The lungs are normal volume. Diaphragm is flattened. Calcified pleural plaque is present i n the anterior mid left lung field. There additional calcified pleural plaques along the lateral righ t mid chest and upper lateral right chest. An acute lung parenchymal process is not seen. Prominent i nterstitial pattern matches comparison. Heart size is normal and central vasculature is within normal limits. No pleural effusion or pneu mothorax seen. No acute bony finding noted. No aortic abnormality. IMPRESSION: No acute cardiopulmonary process. No significant change from comparison study.
[2022-07-25 15:44] LABS: Absolute Lymphocytes (CBC) 0.5 K/uL (0.7-4.9); Hematocrit 39.2 % (39.6-49.0); Lymphocytes % 9.6 % (15.3-44.8); MCV 91.2 fL (80-100); MPV 7.3 fL (7.6-11.3); Protime INR 1.03
[2022-07-25 16:00] LABS: Potassium 4.5 mmol/L (3.5-5.1)
--- NOTE | 2022-07-26 16:01 | EKG ---
Test Date: 2022-07-25 Test Time: 15:10:30 [address] Carrier: SHOAIB MEASUREMENT RESULTS: Intervals: Rate: 64 SD: 214 QRSD: 90 QT: 404 QTc: 416 [place]: P: 69 SD: 214 QRS: 40 T: 62 INTERPRETIVE STATEMENTS: Sinus rhythm with 1st degree AV block Otherwise normal ECG Compared to ECG 12/03/2021 16:14:57 First degree AV block now present Electronically Signed On 07-26-22 16:00:08 CONTRACT ASSOCIATE MANAGER by Edgar Mccormick
[2022-08-07] MEDS ORDERED: Ringers Lactate 1,000 ML IV ONE ×2 (09:51→13:27)
[2022-08-07] MEDS ORDERED: CEFAZOLIN SODIUM 2 GM/VIAL ONE (10:20)
[2022-08-07] MEDS ORDERED: propofoL 200 MG/20 ML VIAL IV ONE ×3 (10:50→11:19)
[2022-08-07] MEDS ORDERED: LIDOCAINE 1% MPF 5 ML VIAL ONE (10:50)
[2022-08-07] MEDS ORDERED: FENTANYL CITR 100 MCG/2 ML ONE (10:50)
[2022-08-07] MEDS ORDERED: NS 0.9% VIAL 10 ML ONE (10:59)
[2022-08-07] MEDS ORDERED: CODEINE 30MG/APAP 300MG TAB PO PRN (12:18)
[2022-08-07] MEDS ORDERED: PHENAZOPYRIDINE 100MG TAB PO ONE ×2 (12:18→14:00)
[2022-08-07] MEDS: MORPHINE 4 MG/ML SYR ONE ×2 (12:21→12:31)
--- NOTE | 2022-08-07 12:28 | OP ---
Surgeon: JOSIE JOYCE Preoperative Diagnoses: 1.Benign prostatic hypertrophy with lower urinary tract obstruction and symptomatology. 2.History of chronic prostatitis. Postoperative Diagnoses: 1.Benign prostatic hypertrophy with lower urinary tract obstruction and symptomatology. 2.History of chronic prostatitis. Principal Procedure: Prostatic urethral lift/UroLift with 6 implants used and 1 explanted for 5 tota l implants successfully placed. Indication For Procedure: Mr. Murillo is a 77-year-old gentleman with a history of seizure disorder fr om prior subarachnoid hemorrhage and subdural hematoma, who had complications of his BPH with chronic prostatitis and underwent evaluation revealing significant lateral lobar hypertrophy causing obstruc tion. He was counseled on options to manage his obstruction and was offered the UroLift among other approaches. Procedure Note In Detail: The patient was consented in the preoperative holding area before being tr ansferred to the operative suite where general anesthesia was induced. He was given Ancef 2 g IV ant imicrobial prophylaxis and pneumo boots were provided for DVT prophylaxis. He was placed in the lith otomy position, padded and secured to the table appropriately. Pneumo boots were not applied because of his history of bilateral lower extremity DVTs with an IVC filter in place. His genitalia were pr epped with Hibiclens and he was draped in standard fashion. The case was begun using a 20-Prydeinig Uro Lift sheath and a visual obturator to traverse his urethra and enter his bladder with ease. The pros tatic urethra was surveyed on the way in, and there was significant lateral lobar hypertrophy with mi ld elevation of a median bar without significant intravesical projection. As a result, the bladder w as decompressed of fluid and urine, and I switched the visual obturator for a UroLift delivery device . The first implant location target was in the left lateral wall of the bladder neck approximately 1 .5 cm distal to the bladder neck opening. The device was angled about 10 degrees laterally and the t bulk mail technician was pulled after the safety was released. This deployed the needle through the surface of the prostate before an additional 10 degrees of compression was obtained to ensure complete delivery of the needle to the capsular surface of the prostate. Then, a second pull of the trigger retracted the needle part ways and delivered the capsular tab. Additional tensioning was then performed with a th ird pull of the trigger before centering the device back toward the midline and advancing approximate ly 2 to 3 cm for the bladder neck until the white line of the monofilament was centered in the delive ry bay. The urethral end piece was then affixed to the suture, which was then cut and the end piece did nicely invaginate into tissue approximately 0.3 to 0.5 cm distal to the bladder neck. As a resul t, we switched the UroLift delivery device for a new implant and made a similar targeted location at this time on the right side approximately 1.5 cm from the bladder neck. This did successfully implan rinku another device at the level of the bladder neck, which appeared in good position invaginated into tissue with several millimeters between the urethral end piece and the bladder neck opening. I then surveyed the channel created and there was a residual tissue in the mid and apical zones of the pros bell; so, I placed a third and a fourth implant at the level of the verumontanum laterally lateralizi ng the tissue appropriately before switching to a visual obturator to survey the channel that had bee n created. While an anterior channel was visible, there was some anterior overhang of tissue that wa s approximating the slightly elevated median bar. As a result, I targeted this anterior tissue just distal to the bladder neck end piece and placed a fifth implant more anteriorly and stacked into that tissue. This did elevate the bladder neck nicely but slightly asymmetrically. So, I placed a sixth implant in the contralateral/right side in the mid gland to bladder neck region. The urethral end p iece of this last implant did seem to be a bit too close to the opening of the bladder neck in the wa y that the end piece was oriented. As a result, I switched the UroLift delivery device for a cystosc ope and using cold cup forceps, attempted to turn the urethral end piece, so that it did not approxim ate the opening of the bladder neck as much. Unfortunately, this did cause dislodging of the end pie ce, which I simply removed, and on survey of the channel, despite this last urethral end piece being removed, there was still a nice continuous anterior channel. As a result, I elected to place no furt her implants and left his bladder full of fluid. I then passed a 20-Prydeinig urethral [place] catheter i nto his bladder with ease and I placed 30 cc of sterile water in the balloon. I then irrigated the c atheter to ensure no clot and to remove blood as there was some significant degree of oozing that was ongoing, before connecting the catheter to a leg bag and taking the patient out of the lithotomy pos ition. He was then awakened from general anesthesia before being transferred to a stretcher and then transferred to the recovery room in good condition. Complications: None. Discharge Disposition: He should follow up in the Urology Clinic in about a month's time. He will b e discharged home with the catheter in place and instructed to remove it tomorrow morning at 7 a.m. i n order to complete a voiding trial by 1 p.m. If for some reason, he is uncomfortable removing the c atheter at home, I counseled him to contact us at the office and he could come by and we would remove it for him. JAVIER/BERKLEY Voice ID: [id number] Report ID: [id number]
[2022-08-07 14:20] VITALS: BP 140/80; TEMP 97.5; O2SAT 99
== END 2022-08-07 15:00 | disposition home or self-care (01) ==
LOC: OR 09:24
PROVIDERS: ATTEND Urology
PROC: 0T7D8DZ Dilation of Urethra with Intraluminal Device, Via Natural or Artificial Opening Endoscopic (ICD-10-PCS; principal; 2022-08-07 10:30)
DX: N40.1 Benign prostatic hyperplasia with lower urinary tract symptoms (principal); N13.8 Other obstructive and reflux uropathy; N41.1 Chronic prostatitis
CPT/HCPCS: 93005; 87088; 85025; 87086; 80048; 36415; 85610; 71046; 52441; 52442 ×4; J2704 ×3; J2001; J3010; A4216; J7120 ×2

== ENCOUNTER 2022-09-26 09:49 | Emergency (ER) | payer OTHER ==
--- OUTSIDE RECORDS SUMMARY | 2022-09-26 09:58 | XMS REPORT | Continuity of Care Document ---
:1945 Author Organization [facility] t Address [address] [place] [address] Care Team Providers Name Role Phone Derrek Alvarez Primary Care Physician Derrek Alvarez Attending Clinician Unavailable Sylvain Gomez MD Attending Clinician SYLVAIN GOMEZ Attending Clinician Unavailable SYLVAIN GOMEZ Attending Clinician Unavailable Doctor Unassigned, [place] Attending Clinician Unavailable LYNETTE WEISS Attending Clinician Unavailable JEFF DE PAZ Attending Clinician Unavailable AMBAR RAI Attending Clinician Unavailable CLAUDIA ANGELES Attending Clinician Unavailable RADHA GAFFNEY Attending Clinician Unavailable ANISA FERRARI Attending Clinician Unavailable SYLVAIN OGMEZ Admitting Clinician Unavailable JEFF DE PAZ Admitting Clinician Unavailable AMBAR RAI Admitting Clinician Unavailable CLAUDIA ANGELES Admitting Clinician Unavailable RADHA GAFFNEY Admitting Clinician Unavailable ANISA FERRARI Admitting Clinician Unavailable Payers Payer Name Policy Type Policy Number Effective Date Expiration Date S ash[place] [id number] [id number] [facility] MEDICARE PART A [id number] 2020 \T\ B 00:00:00 Problems Condition Condition Condition Status Onset Resolution Last Treating Co mments Source Name Details Category Date Date Treatment Clinician Date Delirium Delirium Disease [facility] History of History of Disease Active [facility] subdural subdural 01-13 [facility] hemorrhage hemorrhage 00:00: Me dical 00 Center Hyponatrem Hyponatrem Disease Active [facility] ia ia 01-13 [facility] DVT (deep DVT (deep Disease Active [facility] venous venous 01-13 [facility] thrombosis thrombosis 00:00: Me dical ) ) 00 Center Acute deep Acute deep Disease Active [facility] vein vein 01-12 [facility] thrombosis thrombosis 00:00: [place] dical (DVT) of (DVT) of 00 Center popliteal popliteal vein of vein of right right lower lower extremity extremity Thrombocyt Thrombocyt Disease Active [facility] openia openia 01-12 [facility] Center Hyperlipid Hyperlipid Disease Active [facility] emia emia 01-12 [facility] Center GERD GERD Disease Active [facility] (gastroeso (gastroeso 01-12 [place] phageal phageal 00:00: [facility] reflux reflux 00 Center disease) disease) Acute Acute Disease Active [facility] encephalop encephalop 12-25 [place] [facility] athy athy 00:00: Medical 00 [place] Midline Midline Disease Active [facility] shift of shift of 12-25 [facility] brain brain 00:00: Medical 00 Center Weakness Weakness Disease Active [facility] of both of both -08 [facility] lower lower 00:00: Medical extremitie extremitie 00 Ce nter s s Midline Midline Disease Active [facility] low back low back 5-03 [facility] pain with pain with 00:00: Medi margy left-sided left-sided 00 Ce nter sciatica, sciatica, unspecifie unspecifie d d chronicity chronicity Midline Midline Disease Active [facility] low back low back 5-02 [facility] pain with pain with 00:00: Medi margy left-sided left-sided 00 Ce nter sciatica sciatica 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 4-15 [facility] subdural subdural 00:00: Medica l hematoma hematoma 00 Center Focal and Focal and Disease Active [facility] partial partial 4-03 [facility] seizures seizures 00:00: Medica l 00 [place] Aphasia Aphasia Disease Active [facility] 3-11 [facility] 00:[facility]: Medical 00 [place] Headache Headache Disease Active [facility] due to due to 3-02 [facility] intracrani intracrani 00:00: Me dical al disease al disease 00 Ce nter SDH SDH Disease Active [facility] (subdural (subdural 2-25 [facility] hematoma) hematoma) 00:00: [facility] 00 [place] SAH SAH Disease Active [facility] (subarachn (subarachn 2-23 [place] oid oid 00:00: Medical hemorrhage hemorrhage 00 Ce nter ) ) Syncope Syncope Disease Active 2006-08 Univers and and 0-25 ity of collapse collapse 00:00: [address] Altered Altered Disease Active 2006-08 Univers mental mental 0-25 ity of status status 00:00: [address] Benign BPH Problem Common prostatic (benign Spirit hyperplasi prostatic - C HI a hyperplasi St a) [facility] [id number] Elevated Problem Comm on PSA [facility] [id number] BPH loc w Problem Com mon urin Spirit obs/LUTS - [facility] [id number] Chronic Problem Common prostatiti [facility] [id number] OAB Problem Common (overactiv Spirit e bladder) [facility] Seizure Seizure Disease Active [facility] disorder disorder [facility] Hypertensi Hypertensi Disease Active [facility] on, on, [facility] 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[facility] (obstructi (obstructi [place] ve sleep ve sleep Medica l apnea) apnea) [place] Allergies, Adverse Reactions, Alerts Allergy Allergy Status Severity Reaction(s) Onset Inactive Treating Comm ents Source Name Type Date Date Clinician Lorazepgonzales Propensi Active Shortness of Univers m ty to Breath 1-05 ity of adverse 00:00: [place] reaction 00 Medical s Branch ASPIRIN DRUG Active High Other-Cmnt Unive rs INGREDI 1-05 ity of 00:00: [place] 00 [facility] Branch LORAZEPA DRUG Active Med SOB Univers M INGREDI 05 ity of 00:00: [place] 00 Medical Branch NO KNOWN Allergy Active [facility] Aspirin Aspirin Active Unknown [facility] NO KNOWN Drug Active [facility] ALLERGIE Class ity of S [facility] Social History Social Habit Start Date Stop Date Quantity Comments Source History of Cigarette Smoker Universi ty of tobacco use [facility] History SDOH [facility] Alcohol Frequency Medical Center History SDOH [facility] Alcohol Std Medical Cente r Drinks History SDOH [facility] Alcohol Binge Medical Desirae ter Exposure to 2022-08-31 2022-09-10 Not sure University SARS-CoV-2 00:00:00 15:32:00 [facility] (event) [place] Tobacco use and 2022-09-10 2022-09-10 Smokeless tobacco Un iversity of exposure 00:00:00 00:00:00 non-user [facility] Tobacco Comment 2022-09-10 2022-09-10 quit 1969 Universit y of 00:00:00 00:00:00 [facility] Alcohol intake 2016-12-25 2016-12-[address] [facility] St Chung es 00:00:00 00:00:00 non-drinker of Medical Ce nter alcohol (finding) Alcohol Comment 2016-10-13 2016-10-13 quit in [address] [facility] 00:00:00 00:00:00 [facility] Sex Ass[birth year] [facility] Toyin kes 00:00:00 00:00:00 Medical Center Smoking Status Start Date Stop Date Source Unknown if ever smoked [facility] Medical Ce nter Ex-smoker 2022-09-10 00:00:00 2022-09-10 00:00:00 Universi ty of [facility] Medications Ordered Filled Start Stop Current Ordering Indication Dosage Frequency Signature Comments Components Source Medication Medication Date Date Medication? Clinician (SIG) Name Name mirtazapine Yes [id number] 7.5mg Take 1 Univers 7.5 mg 1-23 tablet by ity of tablet 00:00: mouth at [place] 00 bedtime. Medical Branch mirtazapine Yes [id number] 7.5mg Take 1 Univers 7.5 mg 1-23 tablet by ity of tablet 00:00: mouth at [place] [address] bedtime. Medical Branch mirtazapine Yes [id number] 7.5mg Take 1 Univers 7.5 mg 1-23 tablet by ity of tablet 00:00: mouth at [place] [address] bedtime. Medical Branch rivastigmin 2021-08 Yes [id number] 1{patch Apply 1 Univers e 4.6 mg/24 0-25 } Patch to ity of hour patch 00:00: skin in [facility] 00 the Medical morning. Branch Call office for refill when medication is completed. rivastigmin 2021-08 Yes [id number] 1{patch Apply 1 Univers e 4.6 mg/24 0-25 } Patch to ity of hour patch 00:00: skin in [facility] 00 the Medical morning. Branch Call office for refill when medication is completed. rivastigmin 2021-08 Yes [id number] 1{patch Apply 1 Univers e 4.6 mg/24 0-25 } Patch to ity of hour patch 00:00: skin in [facility] the Medical morning. Branch Call office for refill when medication is completed. rivastigmin 2021-08- No [id number] 1{patch Apply 1 Univers e 4.6 mg/24 0-25 01-23 } Patch to ity of hour patch 00:00: 00:00 skin in [place] 00 :00 the Medical morning. Branch Call office for refill when medication is completed. rivastigmin 2021-08- No [id number] 1{patch Apply 1 Univers e 4.6 mg/24 0-25 01-23 } Patch to ity of hour patch 00:00: 00:00 skin in [place] 00 :00 the Medical morning. Branch Call office for refill when medication is completed. Alfuzosin Alfuzosin 2021- No 1{table QD Alfuzosin HCl ER 10 HCl ER 10 5-25 11-20 t_immed HCl ER 10 MG MG 00:00: 00:00 iately_ MG 00 :00 after_t he_same _meal} levETIRAcet 2020-08- No 750mg Take 750 Univers am (KEPPRA) 0-12 10-12 mg by ity of 750 mg 11:59: 00:00 mouth 2 [place] tablet 36 :00 (two) Medical times Branch daily. cyclobenzap Yes 5mg Take 5 mg U nivers rine 5 mg 1-05 by mouth ity of tablet 10:54: as needed [place] for Muscle Medical Spasms. Branch ezetimibe 0 Yes 10mg Take 10 mg Un dameon 10 mg 1-05 by mouth ity of tablet 10:54: daily. [place] [address] Medical Branch traMADoL 50 0 Yes 50mg Take 50 mg Univers mg tablet 1-05 by mouth ity of 10:54: every 6 [place] 56 (six) Medical hours as Branch needed. meloxicam 0 Yes 7.5mg Take 7.5 Uni vers 7.5 mg 1-05 mg by ity of tablet 10:54: mouth [place] 56 daily. Medical Branch clopidogrel 0 Yes 75mg Take 75 mg Univers (PLAVIX) 75 1-05 by mouth ity of mg tablet 10:54: daily. [place] [address] Medical Branch pravastatin 0 Yes 40mg Take 40 mg Univers (PRAVACHOL) 1-05 by mouth ity of 40 mg 10:54: at [place] tablet 56 bedtime. Medical Branch GLUC Yes 1500mg Take [...] by ity of ER capsule 10:54: mouth. [place] [address] Medical Branch phenytoin 0 Yes 30mg Take 30 mg Un [place]ameon Extended 30 1-05 by mouth ity of mg capsule 10:54: every [place] 56 morning. Medical Branch losartan 50 0 Yes 50mg Take 50 mg Univers mg tablet 1-05 by mouth ity of 10:54: daily. [place] [address] Medical Branch atorvastati 0 Yes 80mg Take 80 mg Univers n 80 mg 1-05 by mouth ity of tablet 10:54: at [place] 56 bedtime. Medical Branch cyclobenzap Yes 5mg Take 5 mg U nivers rine 5 mg 1-05 by mouth ity of tablet 10:54: as needed [place] for Muscle Medical Spasms. Branch ezetimibe Yes 10mg Take 10 mg Un dameon 10 mg 1-05 by mouth ity of tablet 10:54: daily. [place] [address] Medical Branch traMADoL 50 0 Yes 50mg Take 50 mg Univers mg tablet 1-05 by mouth ity of 10:54: every 6 [place] [address] (six) Medical hours as Branch needed. meloxicam Yes 7.5mg Take 7.5 Uni vers 7.5 mg 1-05 mg by ity of tablet 10:54: mouth [place] 56 daily. Medical Branch clopidogrel Yes 75mg Take 75 mg Univers (PLAVIX) 75 1-05 by mouth ity of mg tablet 10:54: daily. [place] [address] Medical Branch pravastatin Yes 40mg Take 40 mg Univers (PRAVACHOL) 1-05 by mouth ity of 40 mg 10:54: at [place] tablet 56 bedtime. Medical Branch GLUC Yes 1500mg Take 1,500 Unive rs MAGANA/CHONDRO 1-05 mg by ity of MAGANA A/VIT 10:54: mouth [place] C/MN 56 daily. Medical (GLUCOSAMIN Branch E 1500 COMPLEX ORAL) omeprazole Yes 20mg Take 20 mg U nivers (PRILOSEC) 1-05 by mouth 2 ity of 20 mg 10:54: (two) [place] capsule 56 times Medical daily with Branch meals. phenytoin Yes 200mg Take 200 Uni vers ER 200 mg 1-05 mg by ity of ER capsule 10:54: mouth. [place] [address] Medical Branch phenytoin Yes 30mg Take 30 mg Un dameon Extended 30 1-05 by mouth ity of mg capsule 10:54: every [place] 56 morning. Medical Branch losartan 50 Yes 50mg Take 50 mg Univers mg tablet 1-05 by mouth ity of 10:54: daily. [place] [address] Medical Branch atorvastati 0 Yes 80mg Take 80 mg Univers n 80 mg 1-05 by mouth ity of tablet 10:54: at [place] 56 bedtime. Medical Branch cyclobenzap 2021-0 Yes 5mg Take 5 mg U nivers rine 5 mg 1-05 by mouth ity of tablet 10:54: as needed [place] for Muscle Medical Spasms. Branch ezetimibe Yes 10mg Take 10 mg Un dameon 10 mg 1-05 by mouth ity of tablet 10:54: daily. [place] [address] Medical Branch traMADoL 50 0 Yes 50mg Take 50 mg Univers mg tablet 1-05 by mouth ity of 10:54: every 6 [place] 56 (six) Medical hours as Branch needed. meloxicam 0 Yes 7.5mg Take 7.5 Uni vers 7.5 mg 1-05 mg by ity of tablet 10:54: mouth [place] 56 daily. Medical Branch clopidogrel Yes 75mg Take 75 mg Univers (PLAVIX) 75 1-05 by mouth ity of mg tablet 10:54: daily. [place] [address] Medical Branch pravastatin 0 Yes 40mg Take 40 mg Univers (PRAVACHOL) 1-05 by mouth ity of 40 mg 10:54: at [place] [facility] 56 bedtime. Medical Branch GLUC Yes 1500mg Take [...] by ity of ER capsule 10:54: mouth. [place] [address] Medical Branch phenytoin 0 Yes 30mg Take 30 mg Un [place]ame[place] Extended 30 1-05 by mouth ity of mg capsule 10:54: every [place] 56 morning. Medical Branch losartan 50 0 Yes 50mg Take 50 mg Univers mg tablet 1-05 by mouth ity of 10:54: daily. [place] [address] Medical Branch atorvastati 0 Yes 80mg Take 80 mg Univers n 80 mg 1-05 by mouth ity of tablet 10:54: at [place] 56 bedtime. Medical Branch cyclobenzap 0 Yes 5mg Take 5 mg U nivers rine 5 mg 1-05 by mouth ity of tablet 10:54: as needed [place] for Muscle Medical Spasms. Branch ezetimibe Yes 10mg Take 10 mg Un dameon 10 mg 1-05 by mouth ity of tablet 10:54: daily. [place] [address] Medical Branch traMADoL 50 0 Yes 50mg Take 50 mg Univers mg tablet 1-05 by mouth ity of 10:54: every 6 [place] 56 (six) Medical hours as Branch needed. meloxicam 0 Yes 7.5mg Take 7.5 Uni vers 7.5 mg 1-05 mg by ity of tablet 10:54: mouth [place] 56 daily. Medical Branch clopidogrel Yes 75mg Take 75 mg Univers (PLAVIX) 75 1-05 by mouth ity of mg tablet 10:54: daily. [place] [address] Medical Branch pravastatin 0 Yes 40mg Take 40 mg Univers (PRAVACHOL) 1-05 by mouth ity of 40 mg 10:54: at [place] tablet 56 bedtime. Medical Branch GLUC Yes 1500mg Take 1,500 Unive rs MAGANA/CHONDRO 1-05 mg by ity of MAGANA A/VIT 10:54: mouth [place] C/MN 56 daily. Medical (GLUCOSAMIN Branch E 1500 COMPLEX ORAL) omeprazole Yes 20mg Take 20 mg U nivers (PRILOSEC) 1-05 by mouth 2 ity of 20 mg 10:54: (two) [place] capsule 56 times Medical daily with Branch meals. phenytoin Yes 200mg Take 200 Uni vers ER 200 mg 1-05 mg by ity of ER capsule 10:54: mouth. [place] [address] Medical Branch phenytoin 0 Yes 30mg Take 30 mg Un dameon Extended 30 1-05 by mouth ity of mg capsule 10:54: every [place] 56 morning. Medical Branch losartan 50 0 Yes 50mg Take 50 mg Univers mg tablet 1-05 by mouth ity of 10:54: daily. [place] [address] Medical Branch atorvastati 0 Yes 80mg Take 80 mg Univers n 80 mg 1-05 by mouth ity of tablet 10:54: at [place] bedtime. Medical Branch cyclobenzap 0 Yes 5mg Take 5 mg U nivers rine 5 mg 1-05 by mouth ity of tablet 10:54: as needed [place] [address] for Muscle Medical Spasms. Branch ezetimibe 0 Yes 10mg Take 10 mg Un dameon 10 mg 1-05 by mouth ity of tablet 10:54: daily. [place] [address] Medical Branch traMADoL 50 0 Yes 50mg Take 50 mg Univers mg tablet 1-05 by mouth ity of 10:54: every 6 [place] 56 (six) Medical hours as Branch needed. meloxicam 0 Yes 7.5mg Take 7.5 Uni vers 7.5 mg 1-05 mg by ity of tablet 10:54: mouth [place] 56 daily. Medical Branch clopidogrel 0 Yes 75mg Take 75 mg Univers (PLAVIX) 75 1-05 by mouth ity of mg tablet 10:54: daily. [place] [address] Medical Branch pravastatin 0 Yes 40mg Take 40 mg Univers (PRAVACHOL) 1-05 by mouth ity of 40 mg 10:54: at [place] tablet 56 bedtime. Medical Branch GLUC Yes 1500mg Take [...] by ity of ER capsule 10:54: mouth. [place] [address] Medical Branch phenytoin 0 Yes 30mg Take 30 mg [place] Extended 30 1-05 by mouth ity of mg capsule 10:54: every [place] morning. Medical Branch losartan 50 0 Yes 50mg Take 50 mg Univers mg tablet 1-05 by mouth ity of 10:54: daily. [place] [address] Medical Branch atorvastati 0 Yes 80mg Take 80 mg Univers n 80 mg 1-05 by mouth ity of tablet 10:54: at [place] bedtime. Medical Branch cyclobenzap 0 Yes 5mg Take 5 mg U nivers rine 5 mg 1-05 by mouth ity of tablet 10:54: as needed [place] [address] for Muscle Medical Spasms. Branch ezetimibe Yes 10mg Take 10 mg Un dameon 10 mg 1-05 by mouth ity of tablet 10:54: daily. [place] [address] Medical Branch traMADoL 50 0 Yes 50mg Take 50 mg Univers mg tablet 1-05 by mouth ity of 10:54: every 6 [place] 56 (six) Medical hours as Branch needed. meloxicam 0 Yes 7.5mg Take 7.5 Uni vers 7.5 mg 1-05 mg by ity of tablet 10:54: mouth [place] 56 daily. Medical Branch clopidogrel 0 Yes 75mg Take 75 mg Univers (PLAVIX) 75 1-05 by mouth ity of mg tablet 10:54: daily. [place] [address] Medical Branch pravastatin 0 Yes 40mg Take 40 mg Univers (PRAVACHOL) 1-05 by mouth ity of 40 mg 10:54: at [place] [facility] 56 bedtime. Medical Branch GLUC Yes 1500mg Take [...] by ity of ER capsule 10:54: mouth. [place] [address] Medical Branch phenytoin 0 Yes 30mg Take 30 mg [place] Extended 30 1-05 by mouth ity of mg capsule 10:54: every [place] morning. Medical Branch losartan 50 0 Yes 50mg Take 50 mg Univers mg tablet 1-05 by mouth ity of 10:54: daily. [place] [address] Medical Branch atorvastati 0 Yes 80mg Take 80 mg Univers n 80 mg 1-05 by mouth ity of tablet 10:54: at [place] [address] bedtime. Medical Branch cyclobenzap 0 Yes 5mg Take 5 mg U nivers rine 5 mg 1-05 by mouth ity of tablet 10:54: as needed [place] 56 for Muscle Medical Spasms. Branch ezetimibe Yes 10mg Take 10 mg Un dameon 10 mg 1-05 by mouth ity of tablet 10:54: daily. [place] [address] Medical Branch traMADoL 50 0 Yes 50mg Take 50 mg Univers mg tablet 1-05 by mouth ity of 10:54: every 6 [place] 56 (six) Medical hours as Branch needed. meloxicam 0 Yes 7.5mg Take 7.5 Uni vers 7.5 mg 1-05 mg by ity of tablet 10:54: mouth [place] 56 daily. Medical Branch clopidogrel 0 Yes 75mg Take 75 mg Univers (PLAVIX) 75 1-05 by mouth ity of mg tablet 10:54: daily. [place] [address] Medical Branch pravastatin 0 Yes 40mg Take 40 mg Univers (PRAVACHOL) 1-05 by mouth ity of 40 mg 10:54: at [place] [facility] 56 bedtime. Medical Branch GLUC Yes 1500mg Take [...] by ity of ER capsule 10:54: mouth. [place] [address] Medical Branch phenytoin 0 Yes 30mg Take 30 mg [place] Extended 30 1-05 by mouth ity of mg capsule 10:54: every [place] morning. Medical Branch losartan 50 0 Yes 50mg Take 50 mg Univers mg tablet 1-05 by mouth ity of 10:54: daily. [place] [address] Medical Branch atorvastati 0 Yes 80mg Take 80 mg Univers n 80 mg 1-05 by mouth ity of tablet 10:54: at [place] bedtime. Medical Branch cyclobenzap 0 Yes 5mg Take 5 mg U nivers rine 5 mg 1-05 by mouth ity of tablet 10:54: as needed [place] [address] for Muscle Medical Spasms. Branch ezetimibe 2021-0 Yes 10mg Take 10 mg Un [place] 10 mg 1-05 by mouth ity of tablet 10:54: daily. [place] [address] Medical Branch traMADoL 50 0 Yes 50mg Take 50 mg Univers mg tablet 1-05 by mouth ity of 10:54: every 6 [place] 56 (six) Medical hours as Branch needed. meloxicam 0 Yes 7.5mg Take 7.5 Uni vers 7.5 mg 1-05 mg by ity of tablet 10:54: mouth [place] 56 daily. Medical Branch clopidogrel 0 Yes 75mg Take 75 mg Univers (PLAVIX) 75 1-05 by mouth ity of mg tablet 10:54: daily. [place] [address] Medical Branch pravastatin 0 Yes 40mg Take 40 mg Univers (PRAVACHOL) 1-05 by mouth ity of 40 mg 10:54: at [place] tablet 56 bedtime. Medical Branch GLUC Yes 1500mg Take 1,500 Unive rs MAGANA/CHONDRO 1-05 mg by ity of MAGANA A/VIT 10:54: mouth [place] C/MN 56 daily. Medical (GLUCOSAMIN Branch E 1500 COMPLEX ORAL) omeprazole Yes 20mg Take 20 mg U nivers (PRILOSEC) 1-05 by mouth 2 ity of 20 mg 10:54: (two) [place] capsule 56 times Medical daily with Branch meals. phenytoin Yes 200mg Take 200 Uni vers ER 200 mg 1-05 mg by ity of ER capsule 10:54: mouth. [place] [address] Medical Branch phenytoin 0 Yes 30mg Take 30 mg [place] Extended 30 1-05 by mouth ity of mg capsule 10:54: every [place] morning. Medical Branch losartan 50 Yes 50mg Take 50 mg Univers mg tablet 1-05 by mouth ity of 10:54: daily. [place] [address] Medical Branch atorvastati 0 Yes 80mg Take 80 mg Univers n 80 mg 1-05 by mouth ity of tablet 10:54: at [place] bedtime. Medical Branch cyclobenzap 0 Yes 5mg Take 5 mg U nivers rine 5 mg 1-05 by mouth ity of tablet 10:54: as needed [place] [address] for Muscle Medical Spasms. Branch ezetimibe 0 Yes 10mg Take 10 mg Un [place]on 10 mg 1-05 by mouth ity of tablet 10:54: daily. [place] [address] Medical Branch traMADoL 50 Yes 50mg Take 50 mg Univers mg tablet 1-05 by mouth ity of 10:54: every 6 [place] 56 (six) Medical hours as Branch needed. meloxicam Yes 7.5mg Take 7.5 Uni vers 7.5 mg 1-05 mg by ity of tablet 10:54: mouth [place] 56 daily. Medical Branch clopidogrel Yes 75mg Take 75 mg Univers (PLAVIX) 75 1-05 by mouth ity of mg tablet 10:54: daily. [place] [address] Medical Branch pravastatin Yes 40mg Take 40 mg Univers (PRAVACHOL) 1-05 by mouth ity of 40 mg 10:54: at [place] tablet 56 bedtime. Medical Branch GLUC Yes 1500mg Take 1,500 Unive rs MAGANA/CHONDRO 1-05 mg by ity of MAGANA A/VIT 10:54: mouth [place] C/MN 56 daily. Medical (GLUCOSAMIN Branch E 1500 COMPLEX ORAL) omeprazole Yes 20mg Take 20 mg U nivers (PRILOSEC) 1-05 by mouth 2 ity of 20 mg 10:54: (two) [place] capsule 56 times Medical daily with Branch meals. phenytoin Yes 200mg Take 200 Uni vers ER 200 mg 1-05 mg by ity of ER capsule 10:54: mouth. [place] [address] Medical Branch phenytoin Yes 30mg Take 30 mg [place] Extended 30 1-05 by mouth ity of mg capsule 10:54: every [place] morning. Medical Branch losartan 50 Yes 50mg Take 50 mg Univers mg tablet 1-05 by mouth ity of 10:54: daily. [place] [address] Medical Branch atorvastati Yes 80mg Take 80 mg Univers n 80 mg 1-05 by mouth ity of tablet 10:54: at [place] bedtime. Medical Branch omeprazole Yes 20mg Q.5D Take [address] (PRILOSEC) 6-12 by mouth 2 [place] 20 MG 15:17: (two) Medical capsule 52 times Center daily. pravastatin Yes 40mg QD Take [address] [address] (PRAVACHOL) 6-12 by mouth [facility] 40 MG 15:17: daily. Medical tablet Center Simethicone 2014-0 Yes 180mg Take 180 U nivers (PHAZYME) 6-22 mg by ity of 180 mg Cap 00:00: mouth 3 [place] (three) Medical times Branch daily before meals. Simethicone 2014-0 Yes 180mg Take 180 U nivers (PHAZYME) 6-22 mg by ity of 180 mg Cap 00:00: mouth 3 [place] 00 (three) Medical times Branch daily before meals. Simethicone 2014-0 Yes 180mg Take 180 U nivers (PHAZYME) 6-22 mg by ity of 180 mg Cap 00:00: mouth 3 [place] 00 (three) Medical times Branch daily before meals. Simethicone 2014-0 Yes 180mg Take 180 U nivers (PHAZYME) 6-22 mg by ity of 180 mg Cap 00:00: mouth 3 [place] 00 (three) Medical times Branch daily before meals. Simethicone 2014-0 Yes 180mg Take 180 U nivers (PHAZYME) 6-22 mg by ity of 180 mg Cap 00:00: mouth 3 [place] 00 (three) Medical times Branch daily before meals. Simethicone 2014-0 Yes 180mg Take 180 U nivers (PHAZYME) 6-22 mg by ity of 180 mg Cap 00:00: mouth 3 [place] 00 (three) Medical times Branch daily before meals. Simethicone 2014-0 Yes 180mg Take 180 U nivers (PHAZYME) 6-22 mg by ity of 180 mg Cap 00:00: mouth 3 [place] 00 (three) Medical times Branch daily before meals. Simethicone 2014-0 Yes 180mg Take 180 U nivers (PHAZYME) 6-22 mg by ity of 180 mg Cap 00:00: mouth 3 [place] 00 (three) Medical times Branch daily before meals. Simethicone 2014-0 Yes 180mg Take 180 U nivers (PHAZYME) 6-22 mg by ity of 180 mg Cap 00:00: mouth 3 [place] (three) Medical times Branch daily before meals. metoprolol 2014-0 Yes 25mg Take 25 mg U nivers tartrate 3-05 by mouth ity of (LOPRESSOR) 00:00: daily. [place] 25 mg 00 Medical tablet Branch metoprolol 2014-0 Yes 25mg Take 25 mg U nivers tartrate 3-05 by mouth ity of (LOPRESSOR) 00:00: daily. [place] 25 mg 00 Medical tablet Branch metoprolol Yes 25mg Take 25 mg U nivers tartrate 3-05 by mouth ity of (LOPRESSOR) 00:00: daily. [place] 25 mg 00 Medical tablet Branch metoprolol Yes 25mg Take 25 mg U nivers tartrate 3-05 by mouth ity of (LOPRESSOR) 00:00: daily. [place] 25 mg 00 Medical tablet Branch metoprolol Yes 25mg Take 25 mg U nivers tartrate 3-05 by mouth ity of ([place] 25 [place] 00 Medical tablet Branch metoprolol Yes 25mg Take 25 mg U nivers tartrate 3-05 by mouth ity of (LOPRESS[place]) [place] 25 mg 00 Medical tablet Branch metoprolol Yes 25mg Take 25 mg U nivers tartrate 3-05 by mouth ity of (LOPRESS[place]) [place] 25 mg 00 Medical tablet Branch metoprolol Yes 25mg Take 25 mg U nivers tartrate 3-05 by mouth ity of ([place]RESS[place]) [place] 25 mg 00 Medical tablet Branch metoprolol Yes 25mg Take 25 mg U nivers tartrate 3-05 by mouth ity of ([place]) [place] 25 mg 00 Medical tablet Branch Vitamin B12 Vitamin B12 No 1{table QD Vitamin 1000 MCG 1000 MCG t} B12 1000 MCG Losartan Losartan No 1{table QD Losartan Potassium Potassium t} Potassium 50 MG 50 MG 50 MG Omeprazole Omeprazole No QD Omeprazole 40 MG 40 MG 40 MG Glucosamine Glucosamine No Glucosamin 750 MG 750 MG e 750 MG Dilantin Dilantin No 1{capsu BID Dilantin 100 MG 100 MG le} 100 MG Atorvastati Atorvastati No 1{table QD Atorvastat n Calcium n Calcium t} in Calcium 80 MG 80 MG 80 MG Ezetimibe Ezetimibe No 1{table QD Ezetimibe 10 MG 10 MG t} 10 MG Metoprolol Metoprolol No 1{table BID Metoprolol Tartrate 25 Tartrate 25 t_with_ Tartrate MG MG food} 25 MG Calcium + D Calcium + D No Calcium + 500-1000-40 500-1000-40 D MG-UNT-MCG MG-UNT-MCG 500-1000-4 0 MG-UNT-MCG Dilantin Dilantin No 1{capsu BID Dilantin 100 MG 100 MG le} 100 MG Ezetimibe Ezetimibe No 1{table QD Ezetimibe 10 MG 10 MG t} 10 MG Losartan Losartan No 1{table QD Losartan Potassium Potassium t} Potassium 50 MG 50 MG 50 MG Metoprolol Metoprolol No 1{table BID Metoprolol Tartrate 25 Tartrate 25 t_with_ Tartrate MG MG food} 25 MG Calcium + D Calcium + D No Calcium + 500-1000-40 500-1000-40 D MG-UNT-MCG MG-UNT-MCG 500-1000-4 0 MG-UNT-MCG Vitamin B12 Vitamin B12 No 1{table QD Vitamin 1000 MCG 1000 MCG t} B12 1000 MCG Omeprazole Omeprazole No QD Omeprazole 40 MG 40 MG 40 MG Atorvastati Atorvastati No 1{table QD Atorvastat n Calcium n Calcium t} in Calcium 80 MG 80 MG 80 MG Glucosamine Glucosamine No Glucosamin 750 MG 750 MG e 750 MG Vital Signs Vital Name Observation Time Observation Value Comments Source Systolic blood 2022-09-10 21:47:00 155 mm[Hg] Univer sity of [facility] Diastolic blood 2022-09-10 21:47:00 88 mm[Hg] Unive rsity [facility] Heart rate 2022-09-10 21:47:00 66 /min [facility] Body height 2022-09-10 21:47:00 172.7 cm [facility] Body weight 2022-09-10 21:47:00 83.462 kg [facility] BMI 2022-09-10 21:47:00 27.98 kg/m2 [facility] Oxygen saturation in 2022-09-10 21:47:00 97 /min [facility] blood by [facility] Pulse oximetry Branch height 2022-07-05 11:30:00 68 [in_i] [facility] weight 2022-07-05 11:30:00 180 [lb_av] [facility] temperature 2022-07-05 11:30:00 97.6 [degF] [facility] bmi 2022-07-05 11:30:00 27.37 kg/m2 [facility] oximetry 2022-07-05 11:30:00 99 % [facility] respiratory rate 2022-07-05 11:30:00 18 /min Comm on [facility] blood pressure 2022-07-05 11:30:00 122 mm[Hg] [facility] systolic [facility] blood pressure 2022-07-05 11:30:00 72 mm[Hg] [facility] diastolic [facility] Systolic blood 2022-06-12 13:57:00 148 mm[Hg] Univer sity of [facility] Diastolic blood 2022-06-12 13:57:00 87 mm[Hg] Unive rsity of pressure [facility] Heart rate 2022-06-12 13:57:00 79 /min [facility] Body height 2022-06-12 13:57:00 172.7 cm [facility] Body weight 2022-06-12 13:57:00 83.462 kg [facility] BMI 2022-06-12 13:57:00 27.98 kg/m2 [facility] Oxygen saturation in 2022-06-12 13:57:00 97 /min [facility] blood by [facility] Pulse oximetry Branch height 2022-03-28 15:15:00 68 [in_i] [facility] weight 2022-03-28 15:15:00 189.8 [lb_av] [facility] temperature 2022-03-28 15:15:00 98.6 [degF] [facility] bmi 2022-03-28 15:15:00 28.86 kg/m2 [facility] oximetry 2022-03-28 15:15:00 97 % [facility] respiratory rate 2022-03-28 15:15:00 16 /min Comm on [facility] blood pressure 2022-03-28 15:15:00 138 mm[Hg] [facility] systolic [facility] blood pressure 2022-03-28 15:15:00 80 mm[Hg] [facility] - diastolic [facility] Systolic blood 2021-05-30 16:31:00 119 mm[Hg] Univer sity of [facility] Diastolic blood 2021-05-30 16:31:00 72 mm[Hg] Unive rsity of [facility] Heart rate 2021-05-30 16:31:00 63 /min [facility] Respiratory rate 2021-05-30 16:31:00 19 /[facility] 2021-05-30 16:31:00 172.7 cm [facility] Body weight 2021-05-30 16:31:00 86.183 kg [facility] BMI 2021-05-30 16:31:00 28.89 kg/m2 [facility] Oxygen saturation in 2021-05-30 16:31:00 96 /min [facility] blood by [facility] Pulse oximetry Branch Procedures Procedure Date / Time Performed Performing Clinician Sour e EXTERNAL PROVIDER 2022-09-06 06:01:00 Doctor Unassigned, No [facility] RECORDS Name [facility] ASSIGNMENT OF BENEFITS 2022-06-12 13:50:47 Doctor Unassigned, No [facility] Name Medical Branch MR BRAIN WO CONTRAST 2021-06-23 14:08:54 Sylvain Gomez [facility] Encounters Start End Encounter Admission Attending Care Care Encounter Source Date/Time Date/Time Type Type Clinicians Facility Department ID 2022-03-28 Outpatient Alvarez, STLMLC STLMLC [id number] Common 15:14:02 Derrek [id number] [facility] 2022-09-26 2022-09-26 Telephone CHRIS Gmoez [id number] Univers 00:00:00 00:00:00 [facility] [id number] ity of [place] 4.2.7.2.686 Ernst as HUDSON?BLEA [id number] [address] MEDICAL OFFICE [facility] 2022-09-10 2022-09-10 Outpatient Arvind JOSHIJASONSYLVAIN GARCIA [facility] [id number] Univers 15:40:00 16:26:56 JASON SYLVAIN kaley [facility] 2022-09-10 2022-09-10 [facility] [id number] Univers 15:40:00 16:26:56 Visit [facility] [id number] [facility] 4.2.7.2.686 Ernst as HUDSON?BLEA [id number] [address] OFFICE [facility] 2022-09-06 2022-09-06 Orders Doctor EASTON [id number] Univers 00:00:00 00:00:00 Only Unassigned, SAV 350.1.13.10 ity of [place] [facility] 4.2.7.2.686 Ernst as [id number] [address] 2022-08-14 2022-08-14 Outpatient Arvind MEEKSESYLVAIN [facility] [id number] Univers 08:40:00 08:40:00 JASONSYLVAIN Lux [facility] 2022-07-05 2022-07-[address] [facility] [id number] Co mmon 00:00:00 00:00:00 VISIT Spirit ESTAB PT - CHI LEVEL [facility] 2022-06-12 2022-06-12 Outpatient Arvind MEEKSESYLVAIN [facility] [id number] Univers 09:00:00 10:25:45 JASON SYLVAIN kaley [facility] 2022-06-12 2022-06-12 [facility] [id number] Univers 09:00:00 10:25:45 Visit [facility] [id number] ity of [place] 4.2.7.2.686 Ernst as HUDSON?BLEA [id number] Me dicreji PEREZ [address] [place] MEDICAL OFFICE BUILDING 2022-06-12 2022-06-12 Orders Doctor EASTON 1.2.840.114 [id number] Univers 00:00:00 00:00:00 Only Unassigned, SAV 350.1.13.10 ity of [place] [facility] 4.2.7.2.686 Ernst as [id number] [address] 2022-03-28 2022-03-28 OFFICE STLMLC STLMLC [id number] Co mmon 00:00:00 00:00:00 VISIT Tato WLISON PT - CHI LEVEL 4 [facility] 2021-06-23 2021-06-23 Outpatient SYLVAIN MALAGON [facility] [id number] Univers 07:22:40 23:59:00 SYLVAIN GOMEZ [facility] 2021-06-23 2021-06-23 [facility] Jason [facility] [id number] Univers 07:22:40 23:59:00 Encounter [facility] 350.1.13.10 ity of [facility] 4.2.7.2.[place] C[place] AT [id number] [place] MALATHI [address] [facility] 2021-05-30 2021-05-30 Office Jason [facility] [id number] Univers 10:47:24 12:22:11 Visit [facility] 350.1.13.10 ity of [place] 4.2.7.2.686 Ernst as [place]?Blea [id number] [place] drissreji perez [address] [place] [address] Medical Office [facility] 2021-05-30 2021-05-30 Outpatient SYLVAIN MALAGON [facility] [id number] Univers 11:00:00 11:00:00 SYLVAIN GOMEZ [facility] 2020-09-19 2020-09-19 Outpatient Arvind WEISS [facility] [id number] Univers 08:40:00 08:40:00 LYNETTE mao [facility] 2020-08-23 2020-08-23 Outpatient SYLVAIN MALAGNO [facility] [id number] Univers 10:00:00 10:00:00 SYLVAIN GOMEZ of [facility] Results Test Description Test Time Test Comments [...] (test code = Normal 762) BASIC METABOLIC [id number] 07:36:00 Test Item Value Reference Range Interpretation [...] S NOT APPLICABLE FOR DIALYSIS PATIEN TS. [id number] 07:33:00 Test Item Value Reference Range Interpretation Comments PROTIME (BEAKER) (test code = 14.0 seconds 11.7-14.7 759) INR (BEAKER) (test code = 370) 1.1 <=5.9 PARTIAL THROMBOPLASTIN TIME 31.2 seconds 22.5-36.0 (BEAKER) (test code = 760) RECOMMENDED COUMADIN/WARFARIN INR THERAPY RANGESSTANDARD DOSE: 2.0 - 3.0 Includes: PROPHYLAXIS for venous thrombosis, systemic embolization; TREATMENT for venous thrombosis and/or pulmonary embolus.HIGH RISK: Target INR is 2.5-3.5 for patients with mechanical heart valves.[id number] 16:00:00 Test Item Value Reference Range Interpretation Comments PHOSPHORUS (BEAKER) (test code = 3.6 mg/dL 2.3-4.7 604) [id number] 16:00:00 Test Item Value Reference Range Interpretation Comments MAGNESIUM (BEAKER) (test code = 2.0 mg/dL 1.6-2.6 627) BASIC METABOLIC [id number] 16:00:00 Test Item Value Reference Range Interpretation [...] PATIEN TS. CBC W/PLT COUNT & AUTO [id number] 15:02:00 Test Item Value Reference Range Interpretation [...] MORPHOLOGY (BEAKER) (test code = Normal 762) [id number] 07:21:00 Test Item Value Reference Range Interpretation Comments PROTIME (BEAKER) (test code = 14.0 seconds 11.7-14.7 759) INR (BEAKER) (test code = 370) 1.1 <=5.9 PARTIAL THROMBOPLASTIN TIME 35.9 seconds 22.5-36.0 (BEAKER) (test code = 760) RECOMMENDED COUMADIN/WARFARIN INR THERAPY RANGESSTANDARD DOSE: 2.0 - 3.0 Includes: PROPHYLAXIS for venous thrombosis, systemic embolization; TREATMENT for venous thrombosis and/or pulmonary embolus.HIGH RISK: Target INR is 2.5-3.5 for patients with mechanical heart valves.CALCIUM, [id number] 06:48:00 Test Item Value Reference Range Interpretation Comments CALCIUM IONIZED (BEAKER) (test 1.05 mmol/L 1.12-1.27 L code = 698) PH, BLOOD (BEAKER) (test code = 7.40 1810) CBC W/PLT COUNT & AUTO [id number] 13:02:00 Test Item Value Reference Range Interpretation [...] RBCS(BEAKER) (test 1+ few code = 478) [id number] 07:15:00 Test Item Value Reference Range Interpretation Comments PHOSPHORUS (BEAKER) (test code = 3.2 mg/dL 2.3-4.7 604) [id number] 07:15:00 Test Item Value Reference Range Interpretation Comments MAGNESIUM (BEAKER) (test code = 2.1 mg/dL 1.6-2.6 627) BASIC METABOLIC [id number] 07:15:00 Test Item Value Reference Range Interpretation [...] NOT APPLICABLE FOR DIALYSIS PATIEN TS. CALCIUM, [id number] 06:56:00 Test Item Value Reference Range Interpretation Comments CALCIUM IONIZED (BEAKER) (test 1.00 mmol/L 1.12-1.27 L code = 698) PH, BLOOD (BEAKER) (test code = 7.39 1810) [id number] 06:45:00 Test Item Value Reference Range Interpretation Comments PROTIME (BEAKER) (test code = 14.6 seconds 11.7-14.7 759) INR (BEAKER) (test code = 370) 1.2 <=5.9 PARTIAL THROMBOPLASTIN TIME 31.6 seconds 22.5-36.0 (BEAKER) (test code = 760) RECOMMENDED COUMADIN/WARFARIN INR THERAPY RANGESSTANDARD DOSE: 2.0 - 3.0 Includes: PROPHYLAXIS for venous thrombosis, systemic embolization; TREATMENT for venous thrombosis and/or pulmonary embolus.HIGH RISK: Target INR is 2.5-3.5 for patients with mechanical heart valves.CBC W/PLT COUNT & AUTO [id number] 07:23:00 Test Item Value Reference Range Interpretation [...] 1+ few code = 478) BASIC METABOLIC [id number] 04:52:00 Test Item Value Reference Range Interpretation [...] S NOT APPLICABLE FOR DIALYSIS PATIEN TS. [id number] 04:04:00 Test Item Value Reference Range Interpretation Comments PROTIME (BEAKER) (test code = 13.8 seconds 11.7-14.7 759) INR (BEAKER) (test code = 370) 1.1 <=5.9 PARTIAL THROMBOPLASTIN TIME 29.3 seconds 22.5-36.0 (BEAKER) (test code = 760) RECOMMENDED COUMADIN/WARFARIN INR THERAPY RANGESSTANDARD DOSE: 2.0 - 3.0 Includes: PROPHYLAXIS for venous thrombosis, systemic embolization; TREATMENT for venous thrombosis and/or pulmonary embolus.HIGH RISK: Target INR is 2.5-3.5 for patients with mechanical heart valves.CBC W/PLT COUNT & AUTO [id number] 06:44:00 Test Item Value Reference Range Interpretation [...] K/ L 0.00-0.20 (test code = 417) [id number] 06:23:00 Test Item Value Reference Range Interpretation Comments PHOSPHORUS (BEAKER) (test code = 3.5 mg/dL 2.3-4.7 604) [id number] 06:23:00 Test Item Value Reference Range Interpretation Comments MAGNESIUM (BEAKER) (test code = 2.1 mg/dL 1.6-2.6 627) BASIC METABOLIC [id number] 06:23:00 Test Item Value Reference Range Interpretation [...] S NOT APPLICABLE FOR DIALYSIS PATIEN TS. [id number] 05:42:00 Test Item Value Reference Range Interpretation Comments PROTIME (BEAKER) (test code = 14.0 seconds 11.7-14.7 759) INR (BEAKER) (test code = 370) 1.1 <=5.9 PARTIAL THROMBOPLASTIN TIME 30.1 seconds 22.5-36.0 (BEAKER) (test code = 760) RECOMMENDED COUMADIN/WARFARIN INR THERAPY RANGESSTANDARD DOSE: 2.0 - 3.0 Includes: PROPHYLAXIS for venous thrombosis, systemic embolization; TREATMENT for venous thrombosis and/or pulmonary embolus.HIGH RISK: Target INR is 2.5-3.5 for patients with mechanical heart valves.CALCIUM, [id number] 05:34:00 Test Item Value Reference Range Interpretation Comments CALCIUM IONIZED (BEAKER) (test 1.08 mmol/L 1.12-1.27 L code = 698) PH, BLOOD (BEAKER) (test code = 7.38 1810) CBC W/PLT COUNT & AUTO [id number] 05:27:00 Test Item Value Reference Range Interpretation [...] L 0.00-0.20 (test code = 417) 0.00CALCIUM, [id number] 05:25:00 Test Item Value Reference Range Interpretation Comments CALCIUM IONIZED (BEAKER) (test 1.06 mmol/L 1.12-1.27 L code = 698) PH, BLOOD (BEAKER) (test code = 7.42 1810) [id number] 05:10:00 Test Item Value Reference Range Interpretation Comments PHOSPHORUS (BEAKER) (test code = 3.8 mg/dL 2.3-4.7 604) [id number] 05:10:00 Test Item Value Reference Range Interpretation Comments MAGNESIUM (BEAKER) (test code = 2.0 mg/dL 1.6-2.6 627) BASIC METABOLIC [id number] 05:10:00 Test Item Value Reference Range Interpretation [...] S NOT APPLICABLE FOR DIALYSIS PATIEN TS. [id number] 05:03:00 Test Item Value Reference Range Interpretation Comments PROTIME (BEAKER) (test code = 15.7 seconds 11.7-14.7 H 759) INR (BEAKER) (test code = 370) 1.3 <=5.9 PARTIAL THROMBOPLASTIN TIME 33.7 seconds 22.5-36.0 (BEAKER) (test code = 760) RECOMMENDED COUMADIN/WARFARIN INR THERAPY RANGESSTANDARD DOSE: 2.0 - 3.0 Includes: PROPHYLAXIS for venous thrombosis, systemic embolization; TREATMENT for venous thrombosis and/or pulmonary embolus.HIGH RISK: Target INR is 2.5-3.5 for patients with mechanical heart valves.CALCIUM, [id number] 06:19:00 Test Item Value Reference Range Interpretation Comments CALCIUM IONIZED (BEAKER) (test 0.95 mmol/L 1.12-1.27 L code = 698) PH, BLOOD (BEAKER) (test code = 7.50 1810) CBC W/PLT COUNT & AUTO [id number] 06:16:00 Test Item Value Reference Range Interpretation [...] K/ L 0.00-0.20 (test code = 417) [id number] 06:00:00 Test Item Value Reference Range Interpretation Comments PHOSPHORUS (BEAKER) (test code = 3.6 mg/dL 2.3-4.7 604) [id number] 06:00:00 Test Item Value Reference Range Interpretation Comments MAGNESIUM (BEAKER) (test code = 2.2 mg/dL 1.6-2.6 627) BASIC METABOLIC [id number] 06:00:00 Test Item Value Reference Range Interpretation [...] S NOT APPLICABLE FOR DIALYSIS PATIEN TS. [id number] 05:49:00 Test Item Value Reference Range Interpretation Comments PROTIME (BEAKER) (test code = 14.6 seconds 11.7-14.7 759) INR (BEAKER) (test code = 370) 1.2 <=5.9 PARTIAL THROMBOPLASTIN TIME 30.8 seconds 22.5-36.0 (BEAKER) (test code = 760) RECOMMENDED COUMADIN/WARFARIN INR THERAPY RANGESSTANDARD DOSE: 2.0 - 3.0 Includes: PROPHYLAXIS for venous thrombosis, systemic embolization; TREATMENT for venous thrombosis and/or pulmonary embolus.HIGH RISK: Target INR is 2.5-3.5 for patients with mechanical heart valves.[id number] 13:57:00 Test Item Value Reference Range Interpretation Comments FIBRINOGEN LEVEL (BEAKER) (test 347 mg/dl 225-434 code = 658) CBC W/PLT COUNT & AUTO [id number] 07:20:00 Test Item Value Reference Range Interpretation [...] 0.00-0.20 (test code = 417) 0.00BASIC METABOLIC [id number] 06:11:00 Test Item Value Reference Range Interpretation [...] S NOT APPLICABLE FOR DIALYSIS PATIEN TS. [id number] 06:01:00 Test Item Value Reference Range Interpretation Comments PROTIME (BEAKER) (test code = 15.4 seconds 11.7-14.7 H 759) INR (BEAKER) (test code = 370) 1.2 <=5.9 PARTIAL THROMBOPLASTIN TIME 35.3 seconds 22.5-36.0 (BEAKER) (test code = 760) RECOMMENDED COUMADIN/WARFARIN INR THERAPY RANGESSTANDARD DOSE: 2.0 - 3.0 Includes: PROPHYLAXIS for venous thrombosis, systemic embolization; TREATMENT for venous thrombosis and/or pulmonary embolus.HIGH RISK: Target INR is 2.5-3.5 for patients with mechanical heart valves.CBC W/PLT COUNT & AUTO [id number] 07:13:00 Test Item Value Reference Range Interpretation [...] K/ L 0.00-0.20 (test code = 417) [id number] 06:09:00 Test Item Value Reference Range Interpretation Comments PROTIME (BEAKER) (test code = 16.3 seconds 11.7-14.7 H 759) INR (BEAKER) (test code = 370) 1.3 <=5.9 PARTIAL THROMBOPLASTIN TIME 37.7 seconds 22.5-36.0 H (BEAKER) (test code = 760) RECOMMENDED COUMADIN/WARFARIN INR THERAPY RANGESSTANDARD DOSE: 2.0 - 3.0 Includes: PROPHYLAXIS for venous thrombosis, systemic embolization; TREATMENT for venous thrombosis and/or pulmonary embolus.HIGH RISK: Target INR is 2.5-3.5 for patients with mechanical heart valves.BASIC METABOLIC [id number] 06:08:00 Test Item Value Reference Range Interpretation [...] PATIEN TS. CBC W/PLT COUNT & AUTO [id number] 04:02:00 Test Item Value Reference Range Interpretation [...] 0.00-0.20 (test code = 417) 0.00BASIC METABOLIC [id number] 04:01:00 Test Item Value Reference Range Interpretation [...] S NOT APPLICABLE FOR DIALYSIS PATIEN TS. [id number] 03:47:00 Test Item Value Reference Range Interpretation Comments PROTIME (BEAKER) (test code = 14.4 seconds 11.7-14.7 759) INR (BEAKER) (test code = 370) 1.1 <=5.9 PARTIAL THROMBOPLASTIN TIME 31.9 seconds 22.5-36.0 (BEAKER) (test code = 760) RECOMMENDED COUMADIN/WARFARIN INR THERAPY RANGESSTANDARD DOSE: 2.0 - 3.0 Includes: PROPHYLAXIS for venous thrombosis, systemic embolization; TREATMENT for venous thrombosis and/or pulmonary embolus.HIGH RISK: Target INR is 2.5-3.5 for patients with mechanical heart valves.OCCULT BLOOD, [id number] 15:31:00 Test Item Value Reference Range Interpretation Comments FECAL OCCULT BLOOD (BEAKER) (test Negative Negative code = 618) [id number] 13:55:00 Test Item Value Reference Range Interpretation [...] exclusion of thrombosis is within 95-100% range. [id number] 13:47:00 Test Item Value Reference Range Interpretation Comments FIBRINOGEN LEVEL (BEAKER) (test 424 mg/dl 225-434 code = 658) CBC W/PLT COUNT & AUTO [id number] 06:48:00 Test Item Value Reference Range Interpretation [...] K/ L 0.00-0.20 (test code = 417) [id number] 05:05:00 Test Item Value Reference Range Interpretation Comments PARTIAL THROMBOPLASTIN TIME 51.7 seconds 22.5-36.0 H (BEAKER) (test code = 760) POCT-GLUCOSE [id number] 04:37:00 Test Item Value Reference Range Interpretation Comments POC-GLUCOSE METER 108 mg/dL 70-[address] [facility] 6720 (BEAKER) (test code = JOSE Samuels GRACIELA TURNER 1538) [address] [id number] 22:51:00 Test Item Value Reference Range Interpretation Comments PARTIAL THROMBOPLASTIN TIME 96.1 seconds 22.5-36.0 H (BEAKER) (test code = 760) [id number] 16:04:00 Test Item Value Reference Range Interpretation Comments PARTIAL THROMBOPLASTIN TIME 93.1 seconds 22.5-36.0 H (BEAKER) (test code = 760) [id number] 06:38:00 Test Item Value Reference Range Interpretation Comments PARTIAL THROMBOPLASTIN TIME 93.0 seconds 22.5-36.0 H (BEAKER) (test code = 760) [id number] 23:08:00 Test Item Value Reference Range Interpretation Comments PARTIAL THROMBOPLASTIN TIME 56.6 seconds 22.5-36.0 H (BEAKER) (test code = 760) [id number] 18:59:00 Test Item Value Reference Range Interpretation Comments PARTIAL THROMBOPLASTIN TIME 28.6 seconds 22.5-36.0 (BEAKER) (test code = 760) PROTHROMBIN [id number] 15:38:00 Test Item Value Reference Range Interpretation Comments PROTIME (BEAKER) (test code = 13.9 seconds 11.7-14.7 759) INR (BEAKER) (test code = 370) 1.1 <=5.9 RECOMMENDED COUMADIN/WARFARIN INR THERAPY RANGESSTANDARD DOSE: 2.0 - 3.0 Includes: PROPHYLAXIS for venous thrombosis, systemic embolization; TREATMENT for venous thrombosis and/or pulmonary embolus.HIGH RISK: Target INR is 2.5-3.5 for patients with mechanical heart valves.[id number] 12:27:00 Test Item Value Reference Range Interpretation Comments PARTIAL THROMBOPLASTIN TIME 65.9 seconds 22.5-36.0 H (BEAKER) (test code = 760) CBC W/PLT COUNT & AUTO [id number] 06:07:00 Test Item Value Reference Range Interpretation [...] 0.00-0.20 (test code = 417) 0.00BASIC METABOLIC [id number] 05:49:00 Test Item Value Reference Range Interpretation [...] S NOT APPLICABLE FOR DIALYSIS PATIEN TS. [id number] 05:25:00 Test Item Value Reference Range Interpretation Comments PARTIAL THROMBOPLASTIN TIME 83.0 seconds 22.5-36.0 H (BEAKER) (test code = 760) [id number] 22:17:00 Test Item Value Reference Range Interpretation Comments PARTIAL THROMBOPLASTIN TIME 91.0 seconds 22.5-36.0 H (BEAKER) (test code = 760) [id number] 16:11:00 Test Item Value Reference Range Interpretation Comments PARTIAL THROMBOPLASTIN TIME 94.0 seconds 22.5-36.0 H (BEAKER) (test code = 760) [id number] 09:42:00 Test Item Value Reference Range Interpretation Comments PARTIAL THROMBOPLASTIN TIME 89.9 seconds 22.5-36.0 H (BEAKER) (test code = 760) [id number] 02:30:00 Test Item Value Reference Range Interpretation Comments PARTIAL THROMBOPLASTIN TIME 108.5 seconds 22.5-36.0 H (BEAKER) (test code = 760) [id number] 18:47:00 Test Item Value Reference Range Interpretation Comments PARTIAL THROMBOPLASTIN TIME 74.1 seconds 22.5-36.0 H (BEAKER) (test code = 760) [id number] 12:42:00 Test Item Value Reference Range Interpretation Comments PARTIAL THROMBOPLASTIN TIME 48.7 seconds 22.5-36.0 H (BEAKER) (test code = 760) BASIC METABOLIC [id number] 05:29:00 Test Item Value Reference Range Interpretation [...] S NOT APPLICABLE FOR DIALYSIS PATIEN TS. [id number] 05:14:00 Test Item Value Reference Range Interpretation Comments PARTIAL THROMBOPLASTIN TIME 43.1 seconds 22.5-36.0 H (BEAKER) (test code = 760) [id number] 22:32:00 Test Item Value Reference Range Interpretation Comments PARTIAL THROMBOPLASTIN TIME 42.2 seconds 22.5-36.0 H (BEAKER) (test code = 760) [id number] 15:38:00 Test Item Value Reference Range Interpretation [...] (BEAKER) (test code = 413) 0.00BASIC METABOLIC [id number] 06:35:00 Test Item Value Reference Range Interpretation [...] (BEAKER) (test code = 413) 0.00PHENYTOIN LEVEL, [id number] 06:21:00 Test Item Value Reference Range Interpretation Comments PHENYTOIN (DILANTIN) (BEAKER) (test 4.0 ug/mL 10.0-20.0 L code = 605) URINALYSIS W/ REFLEX URINE [id number] 12:57:00 Test Item Value Reference Range Interpretation [...] /LPF = 514) SOURCE(BEAKER) (test code = 2875) HEPATIC FUNCTION [id number] 12:45:00 Test Item Value Reference Range Interpretation [...] = 22 U/L 6-55 347) BASIC METABOLIC [id number] 12:45:00 Test Item Value Reference Range Interpretation [...] 0-0 (BEAKER) (test code = 413) 0.00POCT-GLUCOSE [id number] 11:53:00 Test Item Value Reference Range Interpretation Comments POC-GLUCOSE METER 117 mg/dL 70-[address] [facility] 6720 (BEAKER) (test code = [place] 1538) [address] CBC W/PLT COUNT & AUTO [id number] 07:10:00 Test Item Value Reference Range Interpretation [...] K/ L 0.00-0.20 (test code = 417) [id number] 15:06:00 Test Item Value Reference Range Interpretation Comments PROTIME (BEAKER) (test code = 14.8 seconds 11.7-14.7 H 759) INR (BEAKER) (test code = 370) 1.2 <=5.9 PARTIAL THROMBOPLASTIN TIME 29.1 seconds 22.5-36.0 (BEAKER) (test code = 760) RECOMMENDED COUMADIN/WARFARIN INR THERAPY RANGESSTANDARD DOSE: 2.0 - 3.0 Includes: PROPHYLAXIS for venous thrombosis, systemic embolization; TREATMENT for venous thrombosis and/or pulmonary embolus.HIGH RISK: Target INR is 2.5-3.5 for patients with mechanical heart valves.POCT-GLUCOSE [id number] 12:02:00 Test Item Value Reference Range Interpretation Comments POC-GLUCOSE METER 137 mg/dL 70-[address] [facility] 6720 (BEAKER) (test code = JOSE Samuels [facility] 1538) [address] BASIC METABOLIC [id number] 05:46:00 Test Item Value Reference Range Interpretation [...] PATIEN TS. CBC W/PLT COUNT & AUTO [id number] 05:44:00 Test Item Value Reference Range Interpretation [...] L 0.00-0.20 (test code = 417) 0.00POCT-GLUCOSE [id number] 01:09:00 Test Item Value Reference Range Interpretation Comments POC-GLUCOSE METER 105 mg/dL 70-110 TESTED AT [place] [address] [facility] ([facility] Samuels [facility] 1538) [address] POCT-GLUCOSE [id number] 17:33:00 Test Item Value Reference Range Interpretation Comments POC-GLUCOSE METER 123 mg/dL 70-110 H TESTED AT [place] [address] ([facility]) (test code = [facility] Arvind [facility] 1538) [address] POCT-GLUCOSE [id number] 12:08:00 Test Item Value Reference Range Interpretation Comments POC-GLUCOSE METER 104 mg/dL 70-110 TESTED AT [place] [address] ([facility] (test code = [facility] 1538) [address] POCT-GLUCOSE [id number] 06:26:00 Test Item Value Reference Range Interpretation Comments POC-GLUCOSE METER 139 mg/dL 70-110 H TESTED AT [place] [address] ([facility] (test code = [facility] 1538) [address] BASIC METABOLIC [id number] 04:04:00 Test Item Value Reference Range Interpretation [...] PATIEN TS. CBC W/PLT COUNT & AUTO [id number] 03:54:00 Test Item Value Reference Range Interpretation [...] L 0.00-0.20 (test code = 417) 0.00POCT-GLUCOSE [id number] 00:30:00 Test Item Value Reference Range Interpretation Comments POC-GLUCOSE METER 106 mg/dL 70-[address] [facility] 6720 (BEAKER) (test code = [facility] 1538) [address] POCT-GLUCOSE [id number] 17:47:00 Test Item Value Reference Range Interpretation Comments POC-GLUCOSE METER 158 mg/dL 70-[address] [facility] 67 (BEAKER) (test code = [facility] 1538) [address] POCT-GLUCOSE [id number] 12:41:00 Test Item Value Reference Range Interpretation Comments POC-GLUCOSE METER 184 mg/dL 70-[address] [facility] 6720 (BEAKER) (test code = [facility] 1538) [address] BASIC METABOLIC [id number] 07:20:00 Test Item Value Reference Range Interpretation [...] PATIEN TS. CBC W/PLT COUNT & AUTO [id number] 06:56:00 Test Item Value Reference Range Interpretation [...] L 0.00-0.20 (test code = 417) 0.00POCT-GLUCOSE [id number] 06:28:00 Test Item Value Reference Range Interpretation Comments POC-GLUCOSE METER 130 mg/dL 70-110 H TESTED AT [place] [address] ([facility]) (test code = JOSE Samuels [facility] 1538) [address] POCT-GLUCOSE [id number] 00:19:00 Test Item Value Reference Range Interpretation Comments POC-GLUCOSE METER 124 mg/dL 70-110 H TESTED AT [place] [address] ([facility]) (test code = [facility] Arvind [facility] 1538) [address] POCT-GLUCOSE [id number] 18:43:00 Test Item Value Reference Range Interpretation Comments POC-GLUCOSE METER 92 mg/dL 70-110 TESTED AT [place] [address] ([facility]) (test code = [facility] [address] 1538) POCT-GLUCOSE [id number] 12:34:00 Test Item Value Reference Range Interpretation Comments POC-GLUCOSE METER 176 mg/dL 70-110 H TESTED AT [place] [address] ([facility]) (test code = [facility] 1538) [address] CBC W/PLT COUNT & AUTO [id number] 09:33:00 Test Item Value Reference Range Interpretation Comments WHITE BLOOD CELL COUNT (AKER) 4.3 K/ L 4.0-10.0 (test code = 775) RED BLOOD CELL COUNT (AKER) 3.67 M/ L 4.20-5.80 L (test code [...] 0.00-0.20 (test code = 417) 0.00COMPREHENSIVE METABOLIC [id number] 08:56:00 Test Item Value Reference Range Interpretation [...] NOT APPLICABLE FOR DIALYSIS PATIEN TS. POCT-GLUCOSE [id number] 05:58:00 Test Item Value Reference Range Interpretation Comments POC-GLUCOSE METER 96 mg/dL 70-110 TESTED AT [place] [address] ([facility]) (test code = [facility] [address] 1538) POCT-GLUCOSE [id number] 00:23:00 Test Item Value Reference Range Interpretation Comments POC-GLUCOSE METER 110 mg/dL 70-110 TESTED AT [place] [address] ([facility]) (test code = [facility] 1538) [address] POCT-GLUCOSE [id number] 17:48:00 Test Item Value Reference Range Interpretation Comments POC-GLUCOSE METER 100 mg/dL 70-110 TESTED AT [place] [address] ([facility]) (test code = [facility] 1538) [address] POCT-GLUCOSE [id number] 12:09:00 Test Item Value Reference Range Interpretation Comments POC-GLUCOSE METER 103 mg/dL 70-110 TESTED AT [place] [address] ([facility]) (test code = [facility] 1538) [address] URINE [id number] 08:43:00 Test Item Value Reference Range Interpretation Comments CULTURE [facility] (test code = 1095) No growth BASIC METABOLIC [id number] 06:59:00 Test Item Value Reference Range Interpretation [...] NOT APPLICABLE FOR DIALYSIS PATIEN TS. POCT-GLUCOSE [id number] 06:02:00 Test Item Value Reference Range Interpretation Comments POC-GLUCOSE METER 102 mg/dL 70-[address] [facility] 6720 ([facility]) (test code = [place] 1538) [address] PHENYTOIN LEVEL, [id number] 05:51:00 Test Item Value Reference Range Interpretation Comments PHENYTOIN (DILANTIN) (BEAKER) (test 7.3 ug/mL 10.0-20.0 L code = 605) CBC W/PLT COUNT & AUTO [id number] 05:41:00 Test Item Value Reference Range Interpretation [...] L 0.00-0.20 (test code = 417) 0.00POCT-GLUCOSE [id number] 03:20:00 Test Item Value Reference Range Interpretation Comments POC-GLUCOSE METER 121 mg/dL 70-[address] [facility] 6720 [facility] (test code = JOSE Samuels [facility] 1538) [address] POCT-GLUCOSE [id number] 18:47:00 Test Item Value Reference Range Interpretation Comments POC-GLUCOSE METER 116 mg/dL 70-[address] [facility] 6720 ([facility]) (test code = [facility] 1538) [address] PLATELET AGGREGATION: FUNCTION [id number] 13:09:00 Test Item Value Reference Range Interpretation Comments WEAK ADP 100 % 60-91 H RESULT(BEAKER) (test code = 2135) PLATELET FUNCTION 60-100% indicates SCREEN INTERP (BEAKER) normal platelet (test code = 2173) function [id number] Justin Goel MD (BEAKER) (test code = (electronic signature) 6592) PLATELET COUNT AGG 181 K/CU MM 150-430 (BEAKER) (test code = 2656) PHENYTOIN LEVEL, [id number] 13:01:00 Test Item Value Reference Range Interpretation Comments PHENYTOIN (DILANTIN) (BEAKER) (test 8.6 ug/mL 10.0-20.0 L code = 605) POCT-GLUCOSE [id number] 12:17:00 Test Item Value Reference Range Interpretation Comments POC-GLUCOSE METER 103 mg/dL 70-[address] [facility] 6720 ([facility] (test code = [facility] 1538) [address] POCT-GLUCOSE [id number] 06:29:00 Test Item Value Reference Range Interpretation Comments POC-GLUCOSE METER 93 mg/dL 70-[address] [facility] 6720 ([facility]) (test code = [facility] [address] 1538) [id number] 05:36:00 Test Item Value Reference Range Interpretation Comments MAGNESIUM (BEAKER) (test code = 1.7 mg/dL 1.6-2.6 627) BASIC METABOLIC [id number] 05:36:00 Test Item Value Reference Range Interpretation [...] PATIEN TS. CBC W/PLT COUNT & AUTO [id number] 05:22:00 Test Item Value Reference Range Interpretation [...] ABSOLUTE COUNT 0.57 K/ L 1.48-4.50 L (AKER) (test code = 414) MONOCYTES ABSOLUTE COUNT (BEAKER) 0.48 K/ L 0.00-1.30 (test code = 415) EOSINOPHILS ABSOLUTE COUNT 0.24 K/ L 0.00-0.50 (BEAKER) (test code = 416) BASOPHILS ABSOLUTE COUNT (BEAKER) 0.01 K/ L 0.00-0.20 (test code = 417) 0.00POCT-GLUCOSE [id number] 00:30:00 Test Item Value Reference Range Interpretation Comments POC-GLUCOSE METER 97 mg/dL 70-110 TESTED AT [place] [address] ([facility]) (test code = [place] [address] 1538) POCT-GLUCOSE [id number] 18:12:00 Test Item Value Reference Range Interpretation Comments POC-GLUCOSE METER 97 mg/dL 70-110 TESTED AT [place] [address] ([facility]) (test code = [facility] [address] 1538) PLATELET AGGREGATION: FUNCTION [id number] 13:04:00 Test Item Value Reference Range Interpretation Comments WEAK ADP 100 % 60-91 H RESULT([facility]) (test code = 2135) PLATELET FUNCTION 60-100% indicates SCREEN INTERP ([facility]) normal platelet (test code = 2173) function [id number] Justin Goel MD ([facility]) (test code = (electronic signature) 4912) PLATELET COUNT AGG 142 K/CU MM 150-430 L ([facility]) (test code = 2656) POCT-GLUCOSE [id number] 12:12:00 Test Item Value Reference Range Interpretation Comments POC-GLUCOSE METER 98 mg/dL 70-110 TESTED AT [place] [address] ([facility]) (test code = [facility] [place] [address] 1538) [id number] 10:53:00 Test Item Value Reference Range Interpretation Comments D-DIMER QUANTITATIVE ([facility]) 2.83 MG/L FEU <0.50 H (test code [...] of thrombosis is within 95-100% range. THROMBIN [id number] 10:51:00 Test Item Value Reference Range Interpretation Comments THROMBIN TIME (BEAKER) (test code = 15.0 secs 13.8-20.0 550) [id number] 10:50:00 Test Item Value Reference Range Interpretation Comments FIBRINOGEN LEVEL (BEAKER) (test 462 mg/dl 225-434 H code = 658) URINALYSIS W/ [id number] 09:54:00 Test Item Value Reference Range Interpretation [...] 1583) SOURCE(BEAKER) (test code = Urine, [place] 2759) CBC W/PLT COUNT & AUTO [id number] 09:17:00 Test Item Value Reference Range Interpretation [...] 0.00-0.20 (test code = 417) 0.00PHENYTOIN LEVEL, [id number] 05:46:00 Test Item Value Reference Range Interpretation Comments PHENYTOIN (DILANTIN) (BEAKER) (test 1.1 ug/mL 10.0-20.0 L code = 605) BASIC METABOLIC [id number] 05:39:00 Test Item Value Reference Range Interpretation [...] NOT APPLICABLE FOR DIALYSIS PATIEN TS. POCT-GLUCOSE [id number] 00:45:00 Test Item Value Reference Range Interpretation Comments POC-GLUCOSE METER 93 mg/dL 70-[address] [facility] 6720 ([facility]) (test code = [facility] [address] 1538) POCT-GLUCOSE [id number] 18:47:00 Test Item Value Reference Range Interpretation Comments POC-GLUCOSE METER 113 mg/dL 70-[address] [facility] 6720 ([facility]) (test code = [facility] 1538) [address] POCT-GLUCOSE [id number] 12:26:00 Test Item Value Reference Range Interpretation Comments POC-GLUCOSE METER 125 mg/dL 70-[address] [facility] 6720 ([facility] (test code = [facility] 1538) [address] POCT-GLUCOSE [id number] 06:19:00 Test Item Value Reference Range Interpretation Comments POC-GLUCOSE METER 128 mg/dL 70-[address] [facility] 6720 (BEAKER) (test code = [place] 1538) [address] COMPREHENSIVE METABOLIC [id number] 04:41:00 Test Item Value Reference Range Interpretation [...] PATIEN TS. CBC W/PLT COUNT & AUTO [id number] 04:33:00 Test Item Value Reference Range Interpretation [...] L 0.00-0.20 (test code = 417) 0.00POCT-GLUCOSE [id number] 00:50:00 Test Item Value Reference Range Interpretation Comments POC-GLUCOSE METER 117 mg/dL 70-[address] [facility] 6720 ([facility]) (test code = [place] 1538) [address] POCT-GLUCOSE [id number] 17:18:00 Test Item Value Reference Range Interpretation Comments POC-GLUCOSE METER 101 mg/dL 70-[address] [facility] 6720 (BEAKER) (test code = JOSE Samuels [facility] 1538) [address] POCT-GLUCOSE [id number] 12:59:00 Test Item Value Reference Range Interpretation Comments POC-GLUCOSE METER 80 mg/dL 70-[address] [facility] 6720 (BEAKER) (test code = JOSE Samuels [facility] [address] 1538) POCT-GLUCOSE [id number] 12:07:00 Test Item Value Reference Range Interpretation Comments POC-GLUCOSE METER 76 mg/dL 70-110 TESTED AT [place] [address] (BEAKER) (test code = JOSE Samuels [facility] [address] 1538) POCT-GLUCOSE [id number] 06:18:00 Test Item Value Reference Range Interpretation Comments POC-GLUCOSE METER 86 mg/dL 70-110 TESTED AT [place] [address] ([facility] (test code = JOSE Samuels [facility] [address] 1538) [id number] 06:06:00 Test Item Value Reference Range Interpretation Comments PHOSPHORUS (BEAKER) (test code = 2.8 mg/dL 2.3-4.7 604) Once on admission and Daily AM afterwardsOnce on admission and Daily AM [id number] 06:06:00 Test Item Value Reference Range Interpretation Comments MAGNESIUM (BEAKER) (test code = 1.8 mg/dL 1.6-2.6 627) Once on admission and Daily AM afterwardsOnce on admission and Daily AM afterwardsCOMPREHENSIVE METABOLIC [id number] 06:06:00 Test Item Value Reference Range Interpretation [...] Daily AM afterwardsCBC W/PLT COUNT & AUTO [id number] 06:01:00 Test Item Value Reference Range Interpretation [...] K/ L 0.00-0.20 (test code = 417) [id number] 01:40:00 Test Item Value Reference Range Interpretation Comments POTASSIUM (BEAKER) (test code = 4.0 meq/L 3.5-5.1 379) [id number] 01:40:00 Test Item Value Reference Range Interpretation Comments SODIUM (BEAKER) (test code = 381) 138 meq/L 136-145 POCT-GLUCOSE [id number] 00:19:00 Test Item Value Reference Range Interpretation Comments POC-GLUCOSE METER 89 mg/dL 70-[address] [facility] 6720 (BEAKER) (test code = JOSE Samuels [facility] [address] 1538) [id number] 21:37:00 Test Item Value Reference Range Interpretation Comments SODIUM (BEAKER) (test code = 381) 137 meq/L 136-145 [id number] 19:02:00 Test Item Value Reference Range Interpretation Comments PARTIAL THROMBOPLASTIN TIME 24.9 seconds 22.5-36.0 (BEAKER) (test code = 760) PROTHROMBIN [id number] 19:01:00 Test Item Value Reference Range Interpretation Comments PROTIME (BEAKER) (test code = 13.8 seconds 11.7-14.7 759) INR (BEAKER) (test code = 370) 1.1 <=5.9 RECOMMENDED COUMADIN/WARFARIN INR THERAPY RANGESSTANDARD DOSE: 2.0 - 3.0 Includes: PROPHYLAXIS for venous thrombosis, systemic embolization; TREATMENT for venous thrombosis and/or pulmonary embolus.HIGH RISK: Target INR is 2.5-3.5 for patients with mechanical heart valves.[id number] 19:00:00 Test Item Value Reference Range Interpretation Comments POTASSIUM (BEAKER) (test code = 4.0 meq/L 3.5-5.1 379) [id number] 19:00:00 Test Item Value Reference Range Interpretation Comments SODIUM (BEAKER) (test code = 381) 137 meq/L 136-145 HEPATIC FUNCTION [id number] 19:00:00 Test Item Value Reference Range Interpretation [...] code = 16 U/L 6-55 347) POCT-GLUCOSE [id number] 18:42:00 Test Item Value Reference Range Interpretation Comments POC-GLUCOSE METER 96 mg/dL 70-[address] [facility] 6720 (BEAKER) (test code = [place] [address] 1538) PLATELET AGGREGATION: FUNCTION [id number] 11:40:00 Test Item Value Reference Range Interpretation Comments WEAK ADP 50 % 60-91 L RESULT(BEAKER) (test code = 2135) PLATELET FUNCTION 50-59% indicates mild SCREEN INTERP platelet dysfunction (BEAKER) (test code = 2173) [id number] Justin Goel MD (BEAKER) (test code = (electronic signature) 7993) PLATELET COUNT AGG 124 K/CU MM 150-430 L (BEAKER) (test code = 8726) [id number] 05:44:00 Test Item Value Reference Range Interpretation Comments PHOSPHORUS (BEAKER) (test code = 3.1 mg/dL 2.3-4.7 604) [id number] 05:44:00 Test Item Value Reference Range Interpretation Comments MAGNESIUM (BEAKER) (test code = 1.9 mg/dL 1.6-2.6 627) COMPREHENSIVE METABOLIC [id number] 05:44:00 Test Item Value Reference Range Interpretation [...] PATIEN TS. CBC W/PLT COUNT & AUTO [id number] 05:29:00 Test Item Value Reference Range Interpretation [...] code = 417) 0.00URINALYSIS W/ REFLEX URINE [id number] 22:30:00 Test Item Value Reference Range Interpretation [...] (test code = 2795) TSH/FREE T4 IF [id number] 14:45:00 Test Item Value Reference Range Interpretation Comments THYROID STIMULATING HORMONE 2.66 uIU/mL 0.35-4.94 (BEAKER) (test code = 772) VITAMIN B12 AND [id number] 14:45:00 Test Item Value Reference Range Interpretation Comments VITAMIN B12 (BEAKER) (test code = 815 pg/mL 213-816 654) FOLATE (BEAKER) (test code = 362) 15.4 ng/mL >=7.0 Effective 07/06/2014: Folate Reference Range ChangeNew: >=7.0 Previous: >=5.4VALPROIC ACID LEVEL, [id number] 14:18:00 Test Item Value Reference Range Interpretation Comments VALPROIC ACID TOTAL (BEAKER) (test 24 ug/mL 50-100 L code = 924) Therapeutic range for some clinical conditions may be >100 ug/mLAMMONIA 2016-12-23 14:02:00 Test Item Value Reference Range Interpretation Comments AMMONIA (BEAKER) (test code = 348) 35 mol/L 18-72 BLOOD GAS, [id number] 13:50:00 Test Item Value Reference Range Interpretation [...] (BEAKER) (test code = 1819) 21.0 % [id number] 10:49:00 Test Item Value Reference Range Interpretation Comments PROTIME (BEAKER) (test code = 14.7 seconds 11.7-14.7 759) INR (BEAKER) (test code = 370) 1.2 <=5.9 PARTIAL THROMBOPLASTIN TIME 31.8 seconds 22.5-36.0 (BEAKER) (test code = 760) RECOMMENDED COUMADIN/WARFARIN INR THERAPY RANGESSTANDARD DOSE: 2.0 - 3.0 Includes: PROPHYLAXIS for venous thrombosis, systemic embolization; TREATMENT for venous thrombosis and/or pulmonary embolus.HIGH RISK: Target INR is 2.5-3.5 for patients with mechanical heart valves.PROTHROMBIN [id number] 10:48:00 Test Item Value Reference Range Interpretation Comments PROTIME (BEAKER) (test code = 14.7 seconds 11.7-14.7 759) INR (BEAKER) (test code = 370) 1.2 <=5.9 RECOMMENDED COUMADIN/WARFARIN INR THERAPY RANGESSTANDARD DOSE: 2.0 - 3.0 Includes: PROPHYLAXIS for venous thrombosis, systemic embolization; TREATMENT for venous thrombosis and/or pulmonary embolus.HIGH RISK: Target INR is 2.5-3.5 for patients with mechanical heart valves.POCT-GLUCOSE [id number] 07:47:00 Test Item Value Reference Range Interpretation Comments POC-GLUCOSE METER 95 mg/dL 70-[address] [facility] 6720 (BEAKER) (test code = [place] [address] 1538) BASIC METABOLIC [id number] 04:59:00 Test Item Value Reference Range Interpretation [...] PATIEN TS. CBC W/PLT COUNT & AUTO [id number] 04:49:00 Test Item Value Reference Range Interpretation [...] L 0.00-0.20 (test code = 417) 0.00POCT-GLUCOSE [id number] 04:02:00 Test Item Value Reference Range Interpretation Comments POC-GLUCOSE METER 114 mg/dL 70-[address] [facility] 6720 [facility] (test code = [place] 1538) [address] POCT-GLUCOSE [id number] 07:17:00 Test Item Value Reference Range Interpretation Comments POC-GLUCOSE METER 134 mg/dL 70-[address] [facility] 6720 (BEAKER) (test code = [place] 1538) [address] BASIC METABOLIC [id number] 03:52:00 Test Item Value Reference Range Interpretation [...] S NOT APPLICABLE FOR DIALYSIS PATIEN TS. [id number] 03:34:00 Test Item Value Reference Range Interpretation Comments MAGNESIUM (BEAKER) 2.1 mg/dL 1.6-2.6 Specimen slightly (test code = 627) hemolyzed [id number] 03:34:00 Test Item Value Reference Range Interpretation Comments PHOSPHORUS (BEAKER) 2.5 mg/dL 2.3-4.7 Specimen slightly (test code = 604) hemolyzed CBC W/PLT COUNT & AUTO [id number] 03:20:00 Test Item Value Reference Range Interpretation [...] L 0.00-0.20 (test code = 417) 0.00POCT-GLUCOSE [id number] 02:04:00 Test Item Value Reference Range Interpretation Comments POC-GLUCOSE METER 126 mg/dL 70-[address] [facility] 6720 ([facility]) (test code = JO[place] 1538) [address] POCT-GLUCOSE [id number] 00:58:00 Test Item Value Reference Range Interpretation Comments POC-GLUCOSE METER 145 mg/dL 70-[address] [facility] 6720 [facility] ([facility] = [facility] 1538) [id number] POCT-GLUCOSE [id number] 18:36:00 Test Item Value Reference Range Interpretation Comments POC-GLUCOSE METER 127 mg/dL 70-[address] [facility] [address] (BEAKER) (test code = JOSE [place] 1538) [id number] PLATELET AGGREGATION: FUNCTION [id number] 09:33:00 Test Item Value Reference Range Interpretation Comments WEAK ADP 53 % 60-91 L RESULT(BEAKER) (test code = 2135) PLATELET FUNCTION 50-59% indicates mild SCREEN INTERP platelet dysfunction (BEAKER) (test code = 2173) [id number] Teja Ferreira M.D. (BEAKER) (test code = (electonic signature) 4950) PLATELET COUNT AGG 120 K/CU MM 150-430 L (BEAKER) (test code = 2656) [id number] 04:59:00 Test Item Value Reference Range Interpretation Comments MAGNESIUM (BEAKER) 2.1 mg/dL 1.6-2.6 Specimen slightly (test code = 627) hemolyzed Once on admission and Daily AM afterwardsOnce on admission and Daily AM afterwardsOnce on admission and Daily AM [id number] 04:59:00 Test Item Value Reference Range Interpretation [...] Specimen slightly (test code = 347) hemolyzed [id number] 22:52:00 Test Item Value Reference Range Interpretation Comments PROTIME (BEAKER) (test code = 14.3 seconds 11.7-14.7 759) INR (BEAKER) (test code = 370) 1.1 <=5.9 PARTIAL THROMBOPLASTIN TIME 32.5 seconds 22.5-36.0 (BEAKER) (test code = 760) RECOMMENDED COUMADIN/WARFARIN INR THERAPY RANGESSTANDARD DOSE: 2.0 - 3.0 Includes: PROPHYLAXIS for venous thrombosis, systemic embolization; TREATMENT for venous thrombosis and/or pulmonary embolus.HIGH RISK: Target INR is 2.5-3.5 for patients with mechanical heart valves.VALPROIC ACID LEVEL, [id number] 20:34:00 Test Item Value Reference Range Interpretation Comments VALPROIC ACID TOTAL (BEAKER) (test 19 ug/mL 50-100 L code = 924) Therapeutic range for some clinical conditions may be >100 ug/mLCREATINE KINASE (CK), TOTAL AND [id number] 10:02:00 Test Item Value Reference Range Interpretation Comments CREATINE KINASE TOTAL (BEAKER) 106 U/L 29-200 (test code = 380) CREATINE KINASE-MB (BEAKER) (test 1.4 ng/mL 0.0-6.6 code = 750) CREATINE KINASE-MB INDEX (BEAKER) 1.3 % (test code = 395) Effective 07/06/2014: CK-MB Reference Range ChangeNew: 0.0-6.6 Previous: 0.0-4.9CK-MB Reference Range:<6.7 Normal6.7-10.0 Borderline>10.0 Abnormal TROPONIN [id number] 10:00:00 Test Item Value Reference Range Interpretation Comments TROPONIN I (BEAKER) (test code = 397) < ng/mL 0.00-0.03 Effective 07/06/2014: Reference Range ChangeNew: 0.00-0.03 Previous 0.00- 0.15Troponin I (TnI) levelsmust be interpreted in the context of the presenting symptoms and the clinical findings. Elevated TnI levels indicate myocardial damage, but are not specific for ischemic heart disease. Elevated TnI levels are seen in patients with other cardiac conditions (including myocarditis and congestive heart failure), and slight TnI elevations occur in patients with other conditions, including sepsis, renal failure, acidosis, acute neurological disease, and persistent tachyarrhythmia.CREATINE [...] 0.0-6.6 Previous: 0.0-4.9CK-MB Reference Range:<6.7 Normal6.7-10.0 Borderline>10.0 Abnormal TROPONIN [id number] 00:05:00 Test Item Value Reference Range Interpretation Comments TROPONIN I (BEAKER) (test code = 0.01 ng/mL 0.00-0.03 397) Effective 07/06/2014: Reference Range ChangeNew: 0.00-0.03 Previous 0.00- 0.15Troponin I (TnI) levelsmust be interpreted in the context of the presenting symptoms and the clinical findings. Elevated TnI levels indicate myocardial damage, but are not specific for ischemic heart disease. Elevated TnI levels are seen in patients with other cardiac conditions (including myocarditis and congestive heart failure), and slight TnI elevations occur in patients with other conditions, including sepsis, renal failure, acidosis, acute neurological disease, and persistent tachyarrhythmia.CREATINE [...] 0.0-6.6 Previous: 0.0-4.9CK-MB Reference Range:<6.7 Normal6.7-10.0 Borderline>10.0 Abnormal TROPONIN [id number] 18:06:00 Test Item Value Reference Range Interpretation Comments TROPONIN I (BEAKER) (test code = 397) < ng/mL 0.00-0.03 Effective 07/06/2014: Reference Range ChangeNew: 0.00-0.03 Previous 0.00- 0.15Troponin I (TnI) levelsmust be interpreted in the context of the presenting symptoms and the clinical findings. Elevated TnI levels indicate myocardial damage, but are not specific for ischemic heart disease. Elevated TnI levels are seen in patients with other cardiac conditions (including myocarditis and congestive heart failure), and slight TnI elevations occur in patients with other conditions, including sepsis, renal failure, acidosis, acute neurological disease, and persistent tachyarrhythmia.COMPREHENSIVE METABOLIC [id number] 18:03:00 Test Item Value Reference Range Interpretation [...] PATIEN TS. CBC W/PLT COUNT & AUTO [id number] 17:43:00 Test Item Value Reference Range Interpretation [...] K/ L 0.00-0.20 (test code = 417) [id number] 05:44:00 Test Item Value Reference Range Interpretation Comments MAGNESIUM (BEAKER) (test code = 2.0 mg/dL 1.6-2.6 627) [id number] 11:00:00 Test Item Value Reference Range Interpretation Comments RPR SCREEN (BEAKER) (test code = Nonreactive Nonreactive 420) HEMOGLOBIN [id number] 10:35:00 Test Item Value Reference Range Interpretation Comments HEMOGLOBIN A1C (BEAKER) (test code = 5.1 % 4.3-6.1 368) CBC W/PLT COUNT & AUTO [id number] 07:10:00 Test Item Value Reference Range Interpretation [...] L 0.00-0.20 (test code = 417) 0.00VITAMIN [id number] 06:57:00 Test Item Value Reference Range Interpretation Comments VITAMIN B12 (BEAKER) (test code = 584 pg/mL 213-816 774) TSH/FREE T4 IF [id number] 06:57:00 Test Item Value Reference Range Interpretation Comments THYROID STIMULATING HORMONE 0.98 uIU/mL 0.35-4.94 (BEAKER) (test code = 772) [id number] 06:15:00 Test Item Value Reference Range Interpretation Comments MAGNESIUM (BEAKER) (test code = 2.1 mg/dL 1.6-2.6 627) COMPREHENSIVE METABOLIC [id number] 06:15:00 Test Item Value Reference Range Interpretation [...] APPLICABLE FOR DIALYSIS PATIEN TS. BASIC METABOLIC [id number] 06:15:00 Test Item Value Reference Range Interpretation [...] NOT APPLICABLE FOR DIALYSIS PATIEN TS. LIPID [id number] 06:15:00 Test Item Value Reference Range Interpretation Comments TRIGLYCERIDES (BEAKER) (test code = 114 mg/dL 540) CHOLESTEROL (BEAKER) (test code = 161 mg/dL 631) HDL CHOLESTEROL (BEAKER) (test code 36 mg/dL = 976) LDL CHOLESTEROL CALCULATED (BEAKER) 102 mg/dL (test code = 633) Triglyceride Reference Range: Low Risk <150 Borderline 150-199 High Risk 200- 499 Very High Risk >=500Cholesterol Reference Range: Low Risk <200 Borderline 200-239 High Risk >240HDL Cholesterol Reference Range: Low Risk >=60 High Risk <40LDL Cholesterol Reference Range: Optimal <100 Near Optimal 100-129 Borderline 130-159 High 160-189 Very High >=190BASIC METABOLIC [id number] 05:07:00 Test Item Value Reference Range Interpretation [...] PATIEN TS. CBC W/PLT COUNT & AUTO [id number] 05:00:00 Test Item Value Reference Range Interpretation [...] 0.00-0.20 (test code = 417) 0.00BASIC METABOLIC [id number] 19:13:00 Test Item Value Reference Range Interpretation [...] PATIEN TS. CBC W/PLT COUNT & AUTO [id number] 19:08:00 Test Item Value Reference Range Interpretation [...] L 0.00-0.20 (test code = 417) 0.00POCT-GLUCOSE [id number] 14:07:00 Test Item Value Reference Range Interpretation Comments POC-GLUCOSE METER 99 mg/dL 70-[address] [facility] 6720 (BEAKER) (test code = JOSE Samuels [facility] [address] 1538) POCT-GLUCOSE [id number] 13:05:00 Test Item Value Reference Range Interpretation Comments POC-GLUCOSE METER 115 mg/dL 70-110 H [facility] [place] [address] [facility] (test code = [facility] 1538) [address] POCT-GLUCOSE [id number] 07:34:00 Test Item Value Reference Range Interpretation Comments POC-GLUCOSE METER 145 mg/dL 70-110 H TESTED AT [place] [address] ([facility]) (test code = [facility] 1538) [address] [id number] 06:56:00 Test Item Value Reference Range Interpretation Comments PHOSPHORUS (BEAKER) (test code = 3.3 mg/dL 2.3-4.7 604) [id number] 06:56:00 Test Item Value Reference Range Interpretation Comments MAGNESIUM (BEAKER) (test code = 1.9 mg/dL 1.6-2.6 627) BASIC METABOLIC [id number] 06:56:00 Test Item Value Reference Range Interpretation [...] PATIEN TS. CBC W/PLT COUNT & AUTO [id number] 06:34:00 Test Item Value Reference Range Interpretation [...] EOSINOPHILS ABSOLUTE COUNT 0.21 K/ L 0.00-0.50 ([facility]) (test code = 416) BASOPHILS ABSOLUTE COUNT ([facility]) 0.00 K/ L 0.00-0.20 (test code = 417) [id number] 06:29:00 Test Item Value Reference Range Interpretation Comments PARTIAL THROMBOPLASTIN TIME 30.9 seconds 22.5-36.0 ([facility]) (test code = 760) PROTHROMBIN [id number] 06:28:00 Test Item Value Reference Range Interpretation Comments PROTIME ([facility]) (test code = 14.0 seconds 11.7-14.7 759) INR ([facility]) (test code = 370) 1.1 <=5.9 RECOMMENDED COUMADIN/WARFARIN INR THERAPY RANGESSTANDARD DOSE: 2.0 - 3.0 Includes: PROPHYLAXIS for venous thrombosis, systemic embolization; TREATMENT for venous thrombosis and/or pulmonary embolus.HIGH RISK: Target INR is 2.5-3.5 for patients with mechanical heart valves.POCT-GLUCOSE [id number] 05:42:00 Test Item Value Reference Range Interpretation Comments POC-GLUCOSE METER 90 mg/dL 70-110 TESTED AT [place] [address] ([facility]) (test code = [facility] [address] 1538) POCT-GLUCOSE [id number] 23:43:00 Test Item Value Reference Range Interpretation Comments POC-GLUCOSE METER 118 mg/dL 70-110 H TESTED AT [place] [address] ([facility]) (test code = [facility] 1538) [address] POCT-GLUCOSE [id number] 17:19:00 Test Item Value Reference Range Interpretation Comments POC-GLUCOSE METER 127 mg/dL 70-110 H TESTED AT [place] [address] ([facility]) (test code = [facility] 1538) [address] POCT-GLUCOSE [id number] 12:30:00 Test Item Value Reference Range Interpretation Comments POC-GLUCOSE METER 103 mg/dL 70-110 TESTED AT [place] [address] ([facility]) (test code = [facility] 1538) [address] POCT-GLUCOSE [id number] 09:52:00 Test Item Value Reference Range Interpretation Comments POC-GLUCOSE METER 137 mg/dL 70-110 H TESTED AT [place] [address] (BEAKER) (test code = [place] 1538) [address] CBC W/PLT COUNT & AUTO [id number] 06:43:00 Test Item Value Reference Range Interpretation [...] K/ L 0.00-0.20 (test code = 417) [id number] 06:39:00 Test Item Value Reference Range Interpretation Comments PHOSPHORUS (BEAKER) (test code = 3.2 mg/dL 2.3-4.7 604) [id number] 06:39:00 Test Item Value Reference Range Interpretation Comments MAGNESIUM (BEAKER) (test code = 1.9 mg/dL 1.6-2.6 627) BASIC METABOLIC [id number] 06:39:00 Test Item Value Reference Range Interpretation [...] NOT APPLICABLE FOR DIALYSIS PATIEN TS. PROTHROMBIN [id number] 06:31:00 Test Item Value Reference Range Interpretation Comments PROTIME (BEAKER) (test code = 13.7 seconds 11.7-14.7 759) INR (BEAKER) (test code = 370) 1.1 <=5.9 RECOMMENDED COUMADIN/WARFARIN INR THERAPY RANGESSTANDARD DOSE: 2.0 - 3.0 Includes: PROPHYLAXIS for venous thrombosis, systemic embolization; TREATMENT for venous thrombosis and/or pulmonary embolus.HIGH RISK: Target INR is 2.5-3.5 for patients with mechanical heart valves.[id number] 06:31:00 Test Item Value Reference Range Interpretation Comments PARTIAL THROMBOPLASTIN TIME 30.3 seconds 22.5-36.0 ([facility]) (test code = 760) POCT-GLUCOSE [id number] 21:46:00 Test Item Value Reference Range Interpretation Comments POC-GLUCOSE METER 97 mg/dL 70-110 TESTED AT [place] [address] ([facility]) (test code = [facility] [address] 1538) POCT-GLUCOSE [id number] 12:19:00 Test Item Value Reference Range Interpretation Comments POC-GLUCOSE METER 118 mg/dL 70-110 H TESTED AT [place] [address] ([facility]) (test code = [facility] 1538) [address] POCT-GLUCOSE [id number] 08:50:00 Test Item Value Reference Range Interpretation Comments POC-GLUCOSE METER 135 mg/dL 70-110 H TESTED AT [place] [address] ([facility]) (test code = [facility] 1538) [address] POCT-GLUCOSE [id number] 07:45:00 Test Item Value Reference Range Interpretation Comments POC-GLUCOSE METER 94 mg/dL 70-110 TESTED AT [place] [address] ([facility]) (test code = [facility] [address] 1538) CBC W/PLT COUNT & AUTO [id number] 05:32:00 Test Item Value Reference Range Interpretation Comments WHITE BLOOD CELL COUNT (AKER) 4.8 K/ L 4.0-10.0 (test code = 775) RED BLOOD CELL COUNT ([facility]) 4.11 M/ L 4.20-5.80 L (test code = 761) HEMOGLOBIN (BEAKER) (test code = 12.7 GM/DL 13.0-16.8 L 410) HEMATOCRIT (BEAKER) (test code = 36.8 % 40.0-50.0 L 411) MEAN CORPUSCULAR VOLUME (BEAKER) 89.5 fL 82.0-98.0 (test code = 753) MEAN CORPUSCULAR HEMOGLOBIN 30.8 pg 27.0-33.0 (AKER) (test code = 751) MEAN CORPUSCULAR HEMOGLOBIN CONC 34.4 GM/DL 32.0-36.0 (AKER) (test code = 752) RED CELL DISTRIBUTION [...] K/ L 0.00-0.20 (test code = 417) [id number] 05:27:00 Test Item Value Reference Range Interpretation Comments PHOSPHORUS (BEAKER) (test code = 3.4 mg/dL 2.3-4.7 604) [id number] 05:27:00 Test Item Value Reference Range Interpretation Comments MAGNESIUM (BEAKER) (test code = 2.0 mg/dL 1.6-2.6 627) BASIC METABOLIC [id number] 05:27:00 Test Item Value Reference Range Interpretation Comments SODIUM (BEAKER) 139 meq/L 136-145 (test code = 381) POTASSIUM (BEAKER) 4.1 meq/L 3.5-5.1 (test code = 379) CHLORIDE (BEAKER) 108 meq/L 98-107 H (test code = 382) CO2 (BEAKER) (test 23 meq/L 22-29 code = 355) BLOOD UREA NITROGEN 15 mg/dL 7-21 (BEAKER) (test code = 354) CREATININE (AKER) 0.85 mg/dL 0.57-1.25 (test code = 358) GLUCOSE RANDOM 105 mg/dL 70-105 ([facility]) (test code = 652) CALCIUM (BEAKER) 8.6 mg/dL 8.4-10.2 (test code = 697) EGFR ([facility]) (test 89 mL/min/1.73 ESTIMA ROSIE GFR IS code = 1092) sq m NOT ACCURATE CREATININE CLEARANCE IN PREDICTING GLOMERULAR FILTRATION RATE . ESTIMATED GFR I S NOT APPLICABLE FOR DIALYSIS PATILORE TS. [id number] 05:09:00 Test Item Value Reference Range Interpretation Comments PARTIAL THROMBOPLASTIN TIME 29.4 seconds 22.5-36.0 ([facility]) (test code = 760) PROTHROMBIN [id number] 05:08:00 Test Item Value Reference Range Interpretation Comments PROTIME ([facility]) (test code = 13.6 seconds 11.7-14.7 759) INR ([facility]) (test code = 370) 1.0 <=5.9 RECOMMENDED COUMADIN/WARFARIN INR THERAPY RANGESSTANDARD DOSE: 2.0 - 3.0 Includes: PROPHYLAXIS for venous thrombosis, systemic embolization; TREATMENT for venous thrombosis and/or pulmonary embolus.HIGH RISK: Target INR is 2.5-3.5 for patients with mechanical heart valves.POCT-GLUCOSE [id number] 18:02:00 Test Item Value Reference Range Interpretation Comments POC-GLUCOSE METER 120 mg/dL 70-110 H TESTED AT [place] [address] ([facility]) (test code = JOSE Samuels [facility] 1538) [address] POCT-GLUCOSE [id number] 12:36:00 Test Item Value Reference Range Interpretation Comments POC-GLUCOSE METER 109 mg/dL 70-110 TESTED AT [place] [address] ([facility]) (test code = [facility] Arvind [facility] 1538) [address] POCT-GLUCOSE [id number] 07:59:00 Test Item Value Reference Range Interpretation Comments POC-GLUCOSE METER 104 mg/dL 70-110 TESTED AT [place] [address] ([facility]) (test code = [facility] Arvind [facility] 1538) [address] POCT-GLUCOSE [id number] 06:56:00 Test Item Value Reference Range Interpretation Comments POC-GLUCOSE METER 102 mg/dL 70-[address] [facility] 6720 (BEAKER) (test code = [place] 1538) [address] TROPONIN [id number] 02:03:00 Test Item Value Reference Range Interpretation Comments TROPONIN I (BEAKER) (test code = 397) < ng/mL 0.00-0.03 Effective 07/06/2014: Reference Range ChangeNew: 0.00-0.03 Previous 0.00- 0.15Troponin I (TnI) levelsmust be interpreted in the context of the presenting symptoms and the clinical findings. Elevated TnI levels indicate myocardial damage, but are not specific for ischemic heart disease. Elevated TnI levels are seen in patients with other cardiac conditions (including myocarditis and congestive heart failure), and slight TnI elevations occur in patients with other conditions, including sepsis, renal failure, acidosis, acute neurological disease, and persistent tachyarrhythmia.[id number] 01:55:00 Test Item Value Reference Range Interpretation Comments MAGNESIUM (BEAKER) 2.2 mg/dL 1.6-2.6 Specimen slightly (test code = 627) hemolyzed [id number] 01:55:00 Test Item Value Reference Range Interpretation Comments PHOSPHORUS (BEAKER) 2.9 mg/dL 2.3-4.7 Specimen slightly (test code = 604) hemolyzed BASIC METABOLIC [id number] 01:55:00 Test Item Value Reference Range Interpretation [...] I S NOT APPLICABLE FOR DIALYSIS PATIEN [id number] 01:33:00 Test Item Value Reference Range Interpretation Comments PARTIAL THROMBOPLASTIN TIME 30.2 seconds 22.5-36.0 (BEAKER) (test code = 760) PROTHROMBIN [id number] 01:32:00 Test Item Value Reference Range Interpretation Comments PROTIME (BEAKER) (test code = 14.7 seconds 11.7-14.7 759) INR (BEAKER) (test code = 370) 1.2 <=5.9 RECOMMENDED COUMADIN/WARFARIN INR THERAPY RANGESSTANDARD DOSE: 2.0 - 3.0 Includes: PROPHYLAXIS for venous thrombosis, systemic embolization; TREATMENT for venous thrombosis and/or pulmonary embolus.HIGH RISK: Target INR is 2.5-3.5 for patients with mechanical heart valves.CBC W/PLT COUNT & AUTO [id number] 01:23:00 Test Item Value Reference Range Interpretation [...] L 0.00-0.20 (test code = 417) 0.00POCT-GLUCOSE [id number] 00:13:00 Test Item Value Reference Range Interpretation Comments POC-GLUCOSE METER 104 mg/dL 70-110 TESTED AT [place] [address] ([facility]) (test code = [facility] 1538) [address] POCT-GLUCOSE [id number] 17:43:00 Test Item Value Reference Range Interpretation Comments POC-GLUCOSE METER 131 mg/dL 70-110 H TESTED AT [place] [address] ([facility]) (test code = [facility] 1538) [address] TROPONIN [id number] 17:29:00 Test Item Value Reference Range Interpretation Comments TROPONIN I ([facility]) (test code = 397) < ng/mL 0.00-0.03 Effective 07/06/2014: Reference Range ChangeNew: 0.00-0.03 Previous 0.00- 0.15Troponin I (TnI) levelsmust be interpreted in the context of the presenting symptoms and the clinical findings. Elevated TnI levels indicate myocardial damage, but are not specific for ischemic heart disease. Elevated TnI levels are seen in patients with other cardiac conditions (including myocarditis and congestive heart failure), and slight TnI elevations occur in patients with other conditions, including sepsis, renal failure, acidosis, acute neurological disease, and persistent tachyarrhythmia.POCT-GLUCOSE [id number] 13:05:00 Test Item Value Reference Range Interpretation Comments POC-GLUCOSE METER 94 mg/dL 70-[address] [facility] 6720 (BEAKER) (test code = [place] [address] 1538) RAPID DRUG SCREEN, [id number] 09:31:00 Test Item Value Reference Range Interpretation [...] ng/mLAmphetamine/ 1000 ng/mL MethamphetamineOxycodone 300 ng/mLURINALYSIS W/ [id number] 09:29:00 Test Item Value Reference Range Interpretation [...] 516) SOURCE(BEAKER) (test code = Urine, [place] 9425) PLATELET AGGREGATION: FUNCTION [id number] 08:52:00 Test Item Value Reference Range Interpretation Comments WEAK ADP 13 % 60-91 L RESULT(BEAKER) (test code = 2135) PLATELET FUNCTION 0-39% indicates marked SCREEN INTERP platelet dysfunction (BEAKER) (test code = 2173) [id number] Racquel Acevedo MD (BEAKER) (test code = (electronic signature) 8665) PLATELET COUNT AGG 141 K/CU MM 150-430 L (BEAKER) (test code = 2656) TROPONIN [id number] 05:06:00 Test Item Value Reference Range Interpretation Comments TROPONIN I (BEAKER) (test code = 397) < ng/mL 0.00-0.03 Effective 07/06/2014: Reference Range ChangeNew: 0.00-0.03 Previous 0.00- 0.15Troponin I (TnI) levelsmust be interpreted in the context of the presenting symptoms and the clinical findings. Elevated TnI levels indicate myocardial damage, but are not specific for ischemic heart disease. Elevated TnI levels are seen in patients with other cardiac conditions (including myocarditis and congestive heart failure), and slight TnI elevations occur in patients with other conditions, including sepsis, renal failure, acidosis, acute neurological disease, and persistent tachyarrhythmia.[id number] 04:56:00 Test Item Value Reference Range Interpretation Comments MAGNESIUM (BEAKER) 2.0 mg/dL 1.6-2.6 Specimen slightly (test code = 627) hemolyzed [id number] 04:56:00 Test Item Value Reference Range Interpretation Comments PHOSPHORUS (BEAKER) 1.9 mg/dL 2.3-4.7 L Specimen slightly (test code = 604) hemolyzed BASIC METABOLIC [id number] 04:56:00 Test Item Value Reference Range Interpretation [...] I S NOT APPLICABLE FOR DIALYSIS PATIEN [id number] 04:49:00 Test Item Value Reference Range Interpretation Comments COL/EPI CLOSURE TIME (BEAKER) 104 Seconds 78-191 (test code = 1801) COL/ADP CLOSURE TIME (BEAKER) 65 Seconds 43-122 (test code = 1802) PLATELET COUNT AGG (BEAKER) (test 148 K/CU MM 150-430 L code = 2656) CBC W/PLT COUNT & AUTO [id number] 04:34:00 Test Item Value Reference Range Interpretation [...]
[2022-09-26 11:07] LABS: Absolute Lymphocytes (CBC) 0.7 K/uL (0.7-4.9); Lymphocytes % 14.6 % (15.3-44.8); MCV 89.7 fL (80-100); RBC Red Blood Cell Count 4.13 M/uL (4.33-5.43)
--- NOTE | 2022-09-26 11:12 | RAD REPORT ---
EXAM DESCRIPTION: CT - Head Brain Wo Cont - 09/26/2022 10:50 am CLINICAL HISTORY: Hallucinations COMPARISON: 2018 TECHNIQUE: Computed axial tomography of the head was obtained. IV contrast was not requested. All CT scans are performed using dose optimization technique as appropriate and may include automated exposure control or mA/KV adjustment according to patient size. FINDINGS: Left craniectomy An intracranial bleed is not seen The ventricles are normal in caliber No extra-axial fluid collection is noted. No significant hyperdensity within the brain. Fluid within the sinuses/ mastoids is not seen. IMPRESSION: No acute intracranial abnormality is seen If patient's symptoms persist MRI of the brain would be recommended
[2022-09-26 11:21] LABS: Protime INR 1.02
[2022-09-26 11:24] LABS: Potassium 4.1 mmol/L (3.5-5.1)
[2022-09-26 11:44] LABS: Urine Blood Negative (Negative); Urine Glucose Negative (Negative); Urine Protein Negative (Negative); Urine Specific Gravity 1.015 (1.005-1.030)
[2022-09-26 11:49] LABS: Urine Bacteria None Seen /HPF (<20); Urine RBC <5 /HPF (None Seen)
--- NOTE | 2022-09-26 12:54 | RAD REPORT ---
EXAM DESCRIPTION: RAD - Chest Single View - 09/26/2022 12:50 pm CLINICAL HISTORY: AMS Chest pain. COMPARISON: Chest Pa And Lat (2 Views) dated 07/25/2022; Chest Single View dated 12/03/2021; Chest Sin gle View dated 09/27/2018; Chest Single View dated 03/25/2018 FINDINGS: Portable technique limits examination quality. The lungs are mildly emphysematous but grossly clear. The heart is normal in size. No displaced fract ures.Proximal right humeral hardware. IMPRESSION: Rddk-lq-mpyozdbk COPD.
--- NOTE | 2022-09-26 13:07 | EDPHYS ---
Physician Documentation [facility] Name: Nelson Murillo Age: 77 yrs Sex: Male : 1945 Arrival Date: 09/26/2022 Time: 09:51 Bed 8 Private MD: Cliff Alvarez C; Sylvain Spencer G ED Physician Juan Ott HPI: 09/26 11:33 This 77 yrs old Male presents to ER via Ambulatory with complaints of Vision Problem, ms3 Speech Problem. 11:33 77-year-old male with past medical history of intracranial hemorrhage, GERD, ms3 hyperlipidemia, hypertension, Lewy body dementia presents for hallucinations that have become worse over the last 2 days. Patient's spoke to patient's neurologist, Dr. Gomez, and was instructed to come to the emergency department. Patient denies pain at this time. Patient denies nausea, vomiting, fevers, chills. Patient states last night he saw Blunt on his dresser and a baby on the floor. Patient's does note patient has had hallucinations with his Lewy body dementia previously. Patient states her concern is patient has had intracranial hemorrhages that presented this way.. Historical: - Allergies: 09:55 Aspirin; aa5 09:55 Ativan; aa5 09:55 blood thinners; Can't take any blood thinners due to previous brain bleed; aa5 - Home Meds: 10:07 Dilantin 200mg Oral cap twice a day [Active]; Dilantin 30 mg Oral cap daily [Active]; aa5 Metoprolol Tartrate Oral 25 mg twice a day [Active]; losartan 50mg daily [Active]; atorvastatin 80mg daily [Active]; ezetimibe 10 mg Oral nightly [Active]; Omeprazole Oral 40 mg daily [Active]; Mirtazapine Oral 7.5 mg nightly [Active]; Fesol 65mg every Mon/wed/fri [Active]; calcium 600 +D3 twice a day [Active]; glucosamine sulfate 1500 every day Oral [Active]; vitamin b12 [Active]; - PMHx: 09:55 Brain Bleeds x4; CVA; GERD; High Cholesterol; Hypertension; Seizures; 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 - Social history:: Smoking status: Patient denies any tobacco usage or history of. ROS: 11:33 Constitutional: Negative for fever, and chills. Neck: Negative for injury, pain, and ms3 swelling, Cardiovascular: Negative for chest pain, and palpitations. Respiratory: Negative for shortness of breath, cough, wheezing, and pleuritic chest pain, Abdomen/GI: Negative for abdominal pain, nausea, vomiting, diarrhea, and constipation, MS/Extremity: Negative for injury and deformity, Skin: Negative for injury, rash, and discoloration. 11:33 Psych: Positive for visual hallucinations. 11:33 All other systems are negative. Exam: 11:33 Constitutional: This is a well developed, well nourished patient who is awake, alert, ms3 and in no acute distress. Head/Face: Normocephalic, atraumatic. Chest/axilla: Normal chest wall appearance and motion. Nontender with no deformity. Cardiovascular: Regular rate and rhythm with a normal S1 and S2. No gallops, murmurs, or rubs. Normal PMI, no JVD. No pulse deficits. Respiratory: Lungs have equal breath sounds bilaterally, clear to auscultation and percussion. No rales, rhonchi or wheezes noted. No increased work of breathing, no retractions or nasal flaring. Abdomen/GI: Soft, non-tender, with normal bowel sounds. No distension or tympany. No guarding or rebound. No evidence of tenderness throughout. Skin: Warm, dry with normal turgor. Normal color with no rashes, no lesions, and no evidence of cellulitis. 11:33 Neuro: Orientation: to person, place, Mentation: is normal, Memory: is normal, Motor: ms3 is normal, Sensation: is normal. 11:33 ECG was reviewed by the Attending Physician. ms3 Vital Signs: 09:55 BP 139 / 77; Pulse 65; Resp 18 S; Temp 98.4(TE); Pulse Ox 100% on R/A; aa5 11:00 BP 137 / 80; Pulse 59; Resp 11; Pulse Ox 98% on R/A; kc6 12:00 BP 128 / 81; Pulse 59; Resp 10 S; Pulse Ox 96% on R/A; kc6 13:00 BP 121 / 72; Pulse 58; Resp 12 S; Pulse Ox 98% on R/A; kc6 14:00 BP 134 / 80; Pulse 64; Resp 17 S; Pulse Ox 97% on R/A; kc6 MDM: 10:38 Patient medically screened. ms3 11:33 Differential Diagnosis: CVA, electrolyte abnormality, intracranial bleed. ms3 13:06 Data reviewed: vital signs, nurses notes, lab test result(s), EKG, radiologic studies, ms3 CT scan, plain films, and as a result, I will discharge patient. Independent interpretation of the following test(s) in the Emergency Department EKG: See my EKG interpretation above CT Scan: My interpretation is CT images of head reviewed and did not reveal intracranial hemorrhage.. Historians other than the Patient: Spouse/Significant Other: Patient's . Counseling: I had a detailed discussion with the patient and/or guardian regarding: the historical points, exam findings, and any diagnostic results supporting the discharge/admit diagnosis, lab results, radiology results, the need for outpatient follow up, to return to the emergency department if symptoms worsen or persist or if there are any questions or concerns that arise at home. Special discussion: I discussed with the patient/guardian in detail that at this point there is no indication for admission to the hospital. It is understood, however, that if the symptoms persist or worsen the patient needs to return immediately for re-evaluation. ED course: Discussed observation with the patient's . Patient's states patient has Lewy body dementia and hallucinations are not uncommon. She was concern for intracranial hemorrhage. Patient to follow-up with Dr. Gomez in 2 to 3 days. Patient and his understand and agree with plan. All questions were answered. Return precautions discussed include worsening symptoms, or other concerns. On reevaluation patient is alert, in no apparent distress, nontoxic, ambulatory in the emergency department, speaking full sentences. 09/26 10:37 Order name: Basic Metabolic Panel; Complete Time: 11:32 ms3 09/26 10:37 Order name: CBC with Diff; Complete Time: 11:32 ms3 02/08 10:37 Order name: High Sensitivity Troponin; Complete Time: 11:32 ms3 08 10:37 Order name: Protime (+inr); Complete Time: 11:32 ms3 09/26 10:37 Order name: Ptt, Activated; Complete Time: 11:32 ms3 08 11:33 Order name: Urine Microscopic Only; Complete Time: 11:59 ms3 08 10:37 Order name: Stroke CXR 1 View; Complete Time: 12:59 ms3 09/26 10:37 Order name: EKG; Complete Time: 10:39 ms3 08 10:37 Order name: Accucheck; Complete Time: 11:24 ms3 09/26 10:37 Order name: Cardiac monitoring; Complete Time: 10:45 ms3 09/26 10:37 Order name: EKG - Nurse/Tech; Complete Time: 11:12 ms3 09/26 10:37 Order name: IV Saline Lock; Complete Time: 11:02 ms3 09/26 10:38 Order name: CT Head Brain wo Cont; Complete Time: 11:32 ms3 08 11:45 Order name: Urine Dipstick-Ancillary; Complete Time: 11:59 EDMS 08 10:37 Order name: Labs collected and sent; Complete Time: 11:02 ms3 08 10:37 Order name: NPO; Complete Time: 11:00 ms3 08 10:37 Order name: O2 Per Protocol; Complete Time: 10:45 ms3 08 10:37 Order name: O2 Sat Monitoring; Complete Time: 10:45 ms3 09/26 10:37 Order name: Stroke Swallow Screen; Complete Time: 11:02 ms3 08 11:33 Order name: Urine Dipstick-Ancillary (obtain specimen); Complete Time: 11:44 ms3 EC:33 Rate is 58 beats/min. Rhythm is regular. QRS [place] is Normal. MI interval is normal. QRS ms3 interval is normal. Clinical impression: Sinus bradycardia. Interpreted by me. Reviewed by me. Administered Medications: No medications were administered Disposition Summary: 09/26/22 13:06 Discharge Ordered Location: Home ms3 Condition: Stable ms3 Diagnosis - Visual hallucinations ms3 - Lewy Body Dementia ms3 Followup: ms3 - With: Sylvain Spencer MD - When: 1 - 2 days - Reason: Recheck today's complaints Discharge Instructions: - Discharge Summary Sheet ms3 - Dementia, [id number] ms3 Forms: - Medication Reconciliation Form ms3 - Thank You Letter ms3 - Antibiotic Education ms3 - Prescription Opioid Use ms3 Signatures: Dispatcher [employer] Leena Yeboah RN RN aa5 Juan Ott DO DO ms3
--- NOTE | 2022-09-26 13:07 | ER ---
Nurse's Notes [facility] Name: Nelson Murillo Age: 77 yrs Sex: Male : 1945 Arrival Date: 09/26/2022 Time: 09:51 Bed 8 Private MD: Cliff Alvarez C; Sylvain Spencer G Diagnosis: Visual hallucinations;Lewy Body Dementia Presentation: 09/26 09:55 Acuity: HILARIA 2 aa5 09:55 Chief complaint: Pt's states "he started acting weird the day before yesterday and aa5 it's been getting worse so his doctor said to bring him in to the ER because he is acting the same way that he did when he had a brain bleed". Pt currently A\\T\\O x person and place. Pt's reports visual hallucinations and increased confusion. Coronavirus screen: At this time, the client does not indicate any symptoms associated with coronavirus-19. Ebola Screen: Patient denies travel to an Ebola-affected area in the 21 days before illness onset. Initial Sepsis Screen: Does the patient meet any 2 criteria? No. Patient's initial sepsis screen is negative. Does the patient have a suspected source of infection? No. Patient's initial sepsis screen is negative. Risk Assessment: Do you want to hurt yourself or someone else? Patient reports no desire to harm self or others. Onset of symptoms was September 24, 2022. 09:55 Method Of Arrival: Ambulatory aa5 Historical: - Allergies: 09:55 Aspirin; aa5 09:55 Ativan; aa5 09:55 blood thinners; Can't take any blood thinners due to previous brain bleed; aa5 - Home Meds: 10:07 Dilantin 200mg Oral cap twice a day [Active]; Dilantin 30 mg Oral cap daily [Active]; aa5 Metoprolol Tartrate Oral 25 mg twice a day [Active]; losartan 50mg daily [Active]; atorvastatin 80mg daily [Active]; ezetimibe 10 mg Oral nightly [Active]; Omeprazole Oral 40 mg daily [Active]; Mirtazapine Oral 7.5 mg nightly [Active]; Fesol 65mg every Mon/wed/fri [Active]; calcium 600 +D3 twice a day [Active]; glucosamine sulfate 1500 every day Oral [Active]; vitamin b12 [Active]; - PMHx: 09:55 Brain Bleeds x4; CVA; GERD; High Cholesterol; Hypertension; Seizures; 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 - Social history:: Smoking status: Patient denies any tobacco usage or history of. Screenin:54 [facility] ED Fall Risk Assessment (Adult) History of falling in the last 3 months, kc6 including since admission No falls in past 3 months (0 pts) Confusion or Disorientation No (0 pts) Intoxicated or Sedated No (0 pts) Impaired Gait No (0 pts) Mobility Assist Device Used No (0 pt) Altered Elimination No (0 pt) Score/Fall Risk Level 0 - 2 = Low Risk Oriented to surroundings, Maintained a safe environment, Educated pt \\T\\ family on fall prevention, incl call for assistance when getting out of bed, Assessed \\T\\ reinforced patient's understanding of fall precautions, Hourly rounding (assess needs \\T\\ fall precautionary measures) done. Abuse screen: Denies threats or abuse. Denies injuries from another. Nutritional screening: No deficits noted. Tuberculosis screening: No symptoms or risk factors identified. Assessment: 09:54 General: Appears in no apparent distress. comfortable, Behavior is calm, cooperative, kc6 appropriate for age. Pain: Denies pain. Neuro: Ba Agitation-Sedation Scale (RASS): 0 - Alert and Calm Level of Consciousness is awake, alert, obeys commands, Oriented to person, place. Cardiovascular: Capillary refill < 3 seconds. Respiratory: Airway is patent Trachea midline Respiratory effort is even, unlabored, Respiratory pattern is regular, symmetrical. GI: No signs and/or symptoms were reported involving the gastrointestinal system. : No signs and/or symptoms were reported regarding the genitourinary system. EENT: No signs and/or symptoms were reported regarding the EENT system. Derm: No signs and/or symptoms reported regarding the dermatologic system. Skin is intact, Skin is pink, warm \\T\\ dry. Musculoskeletal: No signs and/or symptoms reported regarding the musculoskeletal system. Circulation, motion, and sensation intact. Capillary refill < 3 seconds, Range of motion: intact in all extremities. 10:54 Reassessment: Patient appears in no apparent distress at this time. No changes from kc6 previously documented assessment. Patient and/or family updated on plan of care and expected duration. Pain level reassessed. Patient is alert, oriented x 3, equal unlabored respirations, skin warm/dry/pink. 11:54 Reassessment: Patient appears in no apparent distress at this time. No changes from kc6 previously documented assessment. Patient and/or family updated on plan of care and expected duration. Pain level reassessed. Patient is alert, oriented x 3, equal unlabored respirations, skin warm/dry/pink. 12:54 Reassessment: Patient appears in no apparent distress at this time. No changes from kc6 previously documented assessment. Patient and/or family updated on plan of care and expected duration. Pain level reassessed. Patient is alert, oriented x 3, equal unlabored respirations, skin warm/dry/pink. 13:54 Reassessment: Patient appears in no apparent distress at this time. No changes from kc6 previously documented assessment. Patient and/or family updated on plan of care and expected duration. Pain level reassessed. Patient is alert, oriented x 3, equal unlabored respirations, skin warm/dry/pink. Vital Signs: 09:55 BP 139 / 77; Pulse 65; Resp 18 S; Temp 98.4(TE); Pulse Ox 100% on R/A; aa5 11:00 BP 137 / 80; Pulse 59; Resp 11; Pulse Ox 98% on R/A; kc6 12:00 BP 128 / 81; Pulse 59; Resp 10 S; Pulse Ox 96% on R/A; kc6 13:00 BP 121 / 72; Pulse 58; Resp 12 S; Pulse Ox 98% on R/A; kc6 14:00 BP 134 / 80; Pulse 64; Resp 17 S; Pulse Ox 97% on R/A; kc6 ED Course: 09:51 Patient arrived in ED. as 09:51 Cliff Alvarez MD is Private Physician. as 09:52 Sylvain Spencer MD is Private Physician. as 09:54 Patient has correct armband on for positive identification. Placed in gown. Bed in low kc6 position. Call light in reach. Side rails up X2. Adult w/ patient. 09:55 Arm band placed on. aa5 10:00 Juan Ott DO is Attending Physician. ms3 10:03 Triage completed. aa5 10:03 Isela Olsen, RN is Primary Nurse. kc6 10:52 CT Head Brain wo Cont In Process Unspecified. EDMS 11:02 Initial lab(s) drawn, by me, sent to lab. Inserted saline lock: 20 gauge in right em1 wrist, using aseptic technique. Blood collected. 11:03 Basic Metabolic Panel Sent. em1 11:03 CBC with Diff Sent. em1 11:03 High Sensitivity Troponin Sent. em1 11:03 Protime (+inr) Sent. em1 11:03 Ptt, Activated Sent. em1 11:12 EKG done, by ED staff, reviewed by Juan Ott DO. em1 11:44 Urine Microscopic Only Sent. kc6 12:51 Stroke CXR 1 View In Process Unspecified. EDMS 13:01 Sylvain Spencer MD is Referral Physician. ms3 14:34 No provider procedures requiring assistance completed. IV discontinued, intact, kc6 bleeding controlled, No redness/swelling at site. Pressure dressing applied. Administered Medications: No medications were administered Medication: 14:35 VIS not applicable for this client. kc6 Outcome: 13:06 Discharge ordered by . ms3 14:35 Discharged to home ambulatory, with significant other. kc6 14:35 Condition: stable 14:35 Discharge instructions given to patient, significant other, Instructed on discharge instructions, follow up and referral plans. Demonstrated understanding of instructions, follow-up care. 14:35 Patient left the ED. kc6 Signatures: Dispatcher [employer] EDMS Nessa Ascencio Eric em1 Leena Barrios, RN RN Juan Sutherland DO DO ms3 Isela Olsen, RN RN kc6
[2022-09-26 14:39] VITALS: TEMP 98.4
[2022-09-26 14:44] VITALS: BP 134/80; O2SAT 97
--- NOTE | 2022-09-27 07:57 | EKG ---
Test Date: 2022-09-26 Test Time: 11:10:41 Circuit Designer: OLYA MEASUREMENT RESULTS: Intervals: Rate: 58 WV: 244 QRSD: 90 QT: 412 QTc: 404 [place]: P: 52 WV: 244 QRS: 49 T: 58 INTERPRETIVE STATEMENTS: Sinus bradycardia with 1st degree AV block Otherwise normal ECG Compared to ECG 07/25/2022 15:10:30 Sinus rhythm no longer present Electronically Signed On 09-27-22 07:54:39 INTERACTIVE MEDIA MARKETING SPECIALIST by Edgar Mccormick
== END 2022-09-26 14:35 | disposition home or self-care (01) ==
LOC: ER 09:49
DX: G31.83 Neurocognitive disorder with Lewy bodies (principal); F02.80 Dementia in other diseases classified elsewhere, unspecified severity, without behavioral disturbance, psychotic disturbance, mood disturbance, and anxiety; I10 Essential (primary) hypertension; Z86.73 Personal history of transient ischemic attack (TIA), and cerebral infarction without residual deficits; Z88.6 Allergy status to analgesic agent; Z88.8 Allergy status to other drugs, medicaments and biological substances
CPT/HCPCS: 36415; 70450; 71045; 80048; 81003; 81015; 84484; 85025; 85610; 85730; 93005

== ENCOUNTER 2022-09-27 00:55 | Emergency (ER) | payer OTHER ==
--- OUTSIDE RECORDS SUMMARY | 2022-09-27 01:06 | XMS REPORT | Continuity of Care Document ---
:1945 Author Organization [facility] t Address [address] [place] [address] Care Team Providers Name Role Phone Derrek Alvarez Primary Care Physician Derrek Alvarez Attending Clinician Unavailable Sylvain Gomez MD Attending Clinician SYLVAIN GOMEZ Attending Clinician Unavailable SYLVAIN GOMEZ Attending Clinician Unavailable Doctor Unassigned, [place] Attending Clinician Unavailable LYNETTE WEISS Attending Clinician Unavailable JEFF DE PAZ Attending Clinician Unavailable AMBAR RAI Attending Clinician Unavailable CLAUDIA ANGELES Attending Clinician Unavailable RADHA GAFFNEY Attending Clinician Unavailable ANISA FERRARI Attending Clinician Unavailable SYLVAIN GOMEZ Admitting Clinician Unavailable JEFF DE PAZ Admitting Clinician Unavailable AMBAR RAI Admitting Clinician Unavailable CLAUDIA ANGELES Admitting Clinician Unavailable RADHA GAFFNEY Admitting Clinician Unavailable ANISA FERRARI Admitting Clinician Unavailable Payers Payer Name Policy Type Policy Number Effective Date Expiration Date S ash[place] [id number] [id number] Common [facility] MEDICARE PART A [id number] 2020 \T\ B 00:00:00 Problems Condition Condition [...] vein vein 01-12 [facility] thrombosis thrombosis 00:00: Or dical (DVT) of (DVT) of 00 Center popliteal popliteal vein of vein of right right lower lower extremity extremity Thrombocyt Thrombocyt Disease Active [facility] openia openia 01-12 [facility] 00:00: Medical 00 Center Hyperlipid Hyperlipid Disease Active [facility] emia emia 01-12 [facility] 00:00: Medical 00 Center GERD GERD Disease Active [facility] (gastroeso (gastroeso 01-12 Toyin kes phageal phageal 00:00: [facility] reflux reflux 00 Center disease) disease) Acute Acute Disease Active [facility] encephalop encephalop 12-25 Toyin kes athy athy 00:00: Medical 00 Center Midline Midline Disease Active [facility] shift of shift of 12-25 [facility] brain brain 00:00: Medical 00 Center Weakness Weakness Disease Active [facility] t of both of both 08 [facility] lower lower 00:00: Medical extremitie extremitie [...] Lukes seizures seizures 00:00: Medica l 00 [place] Aphasia Aphasia Disease Active [facility] 3-11 [facility] 00:00: Medical 00 [place] Headache Headache Disease Active [facility] t due to due to 3-02 [facility] intracrani intracrani 00:00: Me dical al disease al disease 00 Ce nter SDH SDH Disease Active [facility] (subdural (subdural 2-25 Luke s hematoma) hematoma) 00:00: [facility] 00 [place] SAH SAH Disease Active [facility] (subarachn (subarachn 2-23 Toyin kes oid oid 00:00: Medical hemorrhage hemorrhage 00 Ce nter ) ) Syncope Syncope Disease Active 2006-08 Univers and and 0-25 ity of collapse collapse 00:00: [address] Altered Altered Disease Active 2006-08 Univers mental mental 0-25 ity of status status 00:00: [address] Benign BPH Problem Common prostatic (benign Spirit hyperplasi prostatic - C HI a hyperplasi St a) [facility] [id number] Elevated Problem Comm on PSA [facility] [id number] BPH loc w Problem Com mon urin Spirit obs/LUTS - [facility] [id number] Chronic Problem Common prostatiti [facility] s [facility] [id number] OAB Problem Common (overactiv Spirit e bladder) [facility] Seizure Seizure Disease Active [facility] disorder disorder [facility] Hypertensi Hypertensi Disease Active C HI [facility] on, on, [facility] essential essential [facility] 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[facility] (obstructi (obstructi Toyin kes ve sleep ve sleep Medica l apnea) apnea) [place] Allergies, Adverse Reactions, Alerts Allergy Allergy Status Severity Reaction(s) Onset Inactive Treating Comm ents Source Name Type Date Date Clinician Lorazepgonzales Propensi Active Shortness of Univers m ty to Breath 1-05 ity of adverse 00:00: [place] reaction Medical s Branch ASPIRIN DRUG Active High Other-Cmnt Unive rs INGREDI 1-05 ity of 00:00: [address] Branch LORAZEPA DRUG Active Med SOB Univers M INGREDI 05 ity of 00:00: [place] 00 Medical Branch NO KNOWN Allergy Active [facility] Aspirin Aspirin Active Unknown [facility] NO KNOWN Drug Active [facility] ALLERGIE Class ity of [facility] Social History Social Habit Start Date Stop Date Quantity Comments Source History of Cigarette Smoker Universi ty of tobacco use [facility] History SDOH [facility] Alcohol Frequency Medical Center History SDOH [facility] Alcohol Std Medical Cente r Drinks History SDOH [facility] Alcohol Binge Medical Desirae ter Exposure to 2022-08-31 2022-09-10 Not sure University SARS-CoV-2 00:00:00 15:32:00 [facility] (event) [place] Tobacco use and 2022-09-10 2022-09-10 Smokeless tobacco Un iversity of exposure 00:00:00 00:00:00 non-user [facility] Tobacco Comment 2022-09-10 2022-09-10 quit 1967 Universit y of 00:00:00 00:00:00 [facility] Alcohol intake 2016-12-25 2016-12-25 Current [facility] St Chung es 00:00:00 00:00:00 non-drinker of Medical Ce nter alcohol (finding) Alcohol Comment 2016-10-13 2016-10-13 quit in [address] [facility] 00:00:00 00:00:00 [facility] Sex Assigned At [birth year] [facility] [address] Deal kes 00:00:00 00:00:00 Medical Center Smoking Status Start Date Stop Date Source Unknown if ever smoked [facility] Medical Ce nter Ex-smoker 2022-09-10 00:00:00 2022-09-10 00:00:00 Universi ty of [facility] Medications Ordered Filled Start Stop Current Ordering Indication Dosage Frequency Signature Comments Components Source Medication Medication Date Date Medication? Clinician (SIG) Name Name mirtazapine Yes [id number] 7.5mg Take 1 Univers 7.5 mg 1-23 tablet by ity of tablet 00:00: mouth at [place] 00 bedtime. Medical Branch mirtazapine Yes [id number] 7.5mg Take 1 Univers 7.5 mg 1-23 tablet by ity of tablet 00:00: mouth at [place] [address] bedtime. Medical Branch mirtazapine Yes [id number] 7.5mg Take 1 Univers 7.5 mg 1-23 tablet by ity of tablet 00:00: mouth at [place] [address] bedtime. Medical Branch rivastigmin 2021-08 Yes [id number] 1{patch Apply 1 Univers e 4.6 mg/24 0-25 } Patch to ity of hour patch 00:00: skin in [facility] 00 the Medical morning. Branch Call office for refill when medication is completed. rivastigmin 2021-08 Yes [id number] 1{patch Apply 1 Univers e 4.6 mg/24 0-25 } Patch to ity of hour patch 00:00: skin in [facility] 00 the Medical morning. Branch Call office for refill when medication is completed. rivastigmin 2021-08 Yes [id number] 1{patch Apply 1 Univers e 4.6 mg/24 0-25 } Patch to ity of hour patch 00:00: skin in [facility] the Medical morning. Branch Call office for refill when medication is completed. rivastigmin 2021-08- No [id number] 1{patch Apply 1 Univers e 4.6 mg/24 0-25 01-23 } Patch to ity of hour patch 00:00: 00:00 skin in [place] as 00 :00 the Medical morning. Branch Call office for refill when medication is completed. rivastigmin 2021-08- No [id number] 1{patch Apply 1 Univers e 4.6 mg/24 [...] by mouth ity of tablet 10:54: daily. [place] [address] Medical Branch traMADoL 50 0 Yes 50mg Take 50 mg Univers mg tablet 1-05 by mouth ity of 10:54: every 6 [place] 56 (six) Medical hours as Branch needed. meloxicam 0 Yes 7.5mg Take 7.5 Uni vers 7.5 mg 1-05 mg by ity of tablet 10:54: mouth [place] 56 daily. Medical Branch clopidogrel 0 Yes 75mg Take 75 mg Univers (PLAVIX) 75 1-05 by mouth ity of mg tablet 10:54: daily. [place] [address] Medical Branch pravastatin 0 Yes 40mg Take [...] by ity of ER capsule 10:54: mouth. [place] [address] Medical Branch phenytoin 0 Yes 30mg Take 30 mg Un dameon Extended 30 1-05 by mouth ity of mg capsule 10:54: every [place] 56 morning. Medical Branch losartan 50 0 Yes 50mg Take 50 mg Univers mg tablet 1-05 by mouth ity of 10:54: daily. [place] [address] Medical Branch atorvastati 0 Yes 80mg Take [...] by mouth ity of tablet 10:54: daily. [place] [address] Medical Branch traMADoL 50 0 Yes 50mg Take 50 mg Univers mg tablet 1-05 by mouth ity of 10:54: every 6 [place] [address] (six) Medical hours as Branch needed. meloxicam Yes 7.5mg Take 7.5 Uni vers 7.5 mg 1-05 mg by ity of tablet 10:54: mouth [place] 56 daily. Medical Branch clopidogrel Yes 75mg Take 75 mg Univers (PLAVIX) 75 1-05 by mouth ity of mg tablet 10:54: daily. [place] [address] Medical Branch pravastatin Yes 40mg Take 40 mg Univers (PRAVACHOL) 1-05 by mouth ity of 40 mg 10:54: at [place] tablet 56 bedtime. Medical Branch GLUC Yes [...] by ity of ER capsule 10:54: mouth. [place] [address] Medical Branch phenytoin Yes 30mg Take 30 mg Un dameon Extended 30 1-05 by mouth ity of mg capsule 10:54: every [place] morning. Medical Branch losartan 50 0 Yes 50mg Take 50 mg Univers mg tablet 1-05 by mouth ity of 10:54: daily. [place] [address] Medical Branch atorvastati 0 Yes 80mg Take 80 mg Univers n 80 mg 1-05 by mouth ity of tablet 10:54: at [place] [address] bedtime. Medical Branch cyclobenzap 2021-0 Yes 5mg Take 5 mg U nivers rine 5 mg 1-05 by mouth ity of tablet 10:54: as needed [place] for Muscle Medical Spasms. Branch ezetimibe 0 Yes 10mg Take 10 mg Un dameon 10 mg 1-05 by mouth ity of tablet 10:54: daily. [place] [address] Medical Branch traMADoL 50 0 Yes 50mg Take 50 mg Univers mg tablet 1-05 by mouth ity of 10:54: every 6 [place] 56 (six) Medical hours as Branch needed. meloxicam 0 Yes 7.5mg Take 7.5 Uni vers 7.5 mg 1-05 mg by ity of tablet 10:54: mouth [place] 56 daily. Medical Branch clopidogrel 0 Yes 75mg Take 75 mg Univers (PLAVIX) 75 1-05 by mouth ity of mg tablet 10:54: daily. [place] [address] Medical Branch pravastatin 0 Yes 40mg Take 40 mg Univers (PRAVACHOL) 1-05 by mouth ity of 40 mg 10:54: at [place] [facility] 56 bedtime. Medical Branch GLUC Yes 1500mg [...] by ity of ER capsule 10:54: mouth. [place] [address] Medical Branch phenytoin 0 Yes 30mg Take 30 mg Un dameon Extended 30 1-05 by mouth ity of mg capsule 10:54: every [place] 56 morning. Medical Branch losartan 50 0 Yes 50mg Take 50 mg Univers mg tablet 1-05 by mouth ity of 10:54: daily. [place] [address] Medical Branch atorvastati 0 Yes 80mg Take [...] by mouth ity of tablet 10:54: daily. [place] [address] Medical Branch traMADoL 50 0 Yes 50mg Take 50 mg Univers mg tablet 1-05 by mouth ity of 10:54: every 6 [place] 56 (six) Medical hours as Branch needed. meloxicam 0 Yes 7.5mg Take 7.5 Uni vers 7.5 mg 1-05 mg by ity of tablet 10:54: mouth [place] 56 daily. Medical Branch clopidogrel 0 Yes 75mg Take 75 mg Univers (PLAVIX) 75 1-05 by mouth ity of mg tablet 10:54: daily. [place] [address] Medical Branch pravastatin 0 Yes 40mg Take [...] by ity of ER capsule 10:54: mouth. [place] [address] Medical Branch phenytoin 0 Yes 30mg Take 30 mg Un dameon Extended 30 1-05 by mouth ity of mg capsule 10:54: every [place] 56 morning. Medical Branch losartan 50 0 Yes 50mg Take 50 mg Univers mg tablet 1-05 by mouth ity of 10:54: daily. [place] [address] Medical Branch atorvastati 0 Yes 80mg Take 80 mg Univers n 80 mg 1-05 by mouth ity of tablet 10:54: at [place] bedtime. Medical Branch cyclobenzap 0 Yes 5mg Take 5 mg U nivers rine 5 mg 1-05 by mouth ity of tablet 10:54: as needed [place] [address] for Muscle Medical Spasms. Branch ezetimibe 0 Yes 10mg Take 10 mg Un dameon 10 mg 1-05 by mouth ity of tablet 10:54: daily. [place] [address] Medical Branch traMADoL 50 0 Yes 50mg Take 50 mg Univers mg tablet 1-05 by mouth ity of 10:54: every 6 [place] 56 (six) Medical hours as Branch needed. meloxicam 0 Yes 7.5mg Take 7.5 Uni vers 7.5 mg 1-05 mg by ity of tablet 10:54: mouth [place] 56 daily. Medical Branch clopidogrel 0 Yes 75mg Take 75 mg Univers (PLAVIX) 75 1-05 by mouth ity of mg tablet 10:54: daily. [place] [address] Medical Branch pravastatin 0 Yes 40mg Take 40 mg Univers (PRAVACHOL) 1-05 by mouth ity of 40 mg 10:54: at [place] [facility] 56 bedtime. Medical Branch GLUC 0 Yes [...] by ity of ER capsule 10:54: mouth. [place] [address] Medical Branch phenytoin 0 Yes 30mg Take 30 mg Un dameon Extended 30 1-05 by mouth ity of mg capsule 10:54: every [place] morning. Medical Branch losartan 50 0 Yes 50mg Take 50 mg Univers mg tablet 1-05 by mouth ity of 10:54: daily. [place] [address] Medical Branch atorvastati 0 Yes 80mg Take 80 mg Univers n 80 mg 1-05 by mouth ity of tablet 10:54: at [place] bedtime. Medical Branch cyclobenzap 0 Yes 5mg Take 5 mg U nivers rine 5 mg 1-05 by mouth ity of tablet 10:54: as needed [place] [address] for Muscle Medical Spasms. Branch ezetimibe 0 Yes 10mg Take 10 mg Un dameon 10 mg 1-05 by mouth ity of tablet 10:54: daily. [place] [address] Medical Branch traMADoL 50 0 Yes 50mg Take 50 mg Univers mg tablet 1-05 by mouth ity of 10:54: every 6 [place] 56 (six) Medical hours as Branch needed. meloxicam 0 Yes 7.5mg Take 7.5 Uni vers 7.5 mg 1-05 mg by ity of tablet 10:54: mouth [place] 56 daily. Medical Branch clopidogrel 0 Yes 75mg Take 75 mg Univers (PLAVIX) 75 1-05 by mouth ity of mg tablet 10:54: daily. [place] [address] Medical Branch pravastatin 0 Yes 40mg Take 40 mg Univers (PRAVACHOL) 1-05 by mouth ity of 40 mg 10:54: at [place] [facility] 56 bedtime. Medical Branch GLUC Yes 1500mg [...] by ity of ER capsule 10:54: mouth. [place] [address] Medical Branch phenytoin 0 Yes 30mg Take 30 mg Un dameon Extended 30 1-05 by mouth ity of mg capsule 10:54: every [place] [address] morning. Medical Branch losartan 50 0 Yes 50mg Take 50 mg Univers mg tablet 1-05 by mouth ity of 10:54: daily. [place] [address] Medical Branch atorvastati 0 Yes 80mg Take 80 mg Univers n 80 mg 1-05 by mouth ity of tablet 10:54: at [place] [address] bedtime. Medical Branch cyclobenzap 0 Yes 5mg Take 5 mg U nivers rine 5 mg 1-05 by mouth ity of tablet 10:54: as needed [place] [address] for Muscle Medical Spasms. Branch ezetimibe Yes 10mg Take 10 mg Un dameon 10 mg 1-05 by mouth ity of tablet 10:54: daily. [place] [address] Medical Branch traMADoL 50 0 Yes 50mg Take 50 mg Univers mg tablet 1-05 by mouth ity of 10:54: every 6 [place] 56 (six) Medical hours as Branch needed. meloxicam 0 Yes 7.5mg Take 7.5 Uni vers 7.5 mg 1-05 mg by ity of tablet 10:54: mouth [place] 56 daily. Medical Branch clopidogrel 0 Yes 75mg Take 75 mg Univers (PLAVIX) 75 1-05 by mouth ity of mg tablet 10:54: daily. [place] [address] Medical Branch pravastatin 0 Yes 40mg Take [...] by ity of ER capsule 10:54: mouth. [place] [address] Medical Branch phenytoin 0 Yes 30mg Take 30 mg Un dameon Extended 30 1-05 by mouth ity of mg capsule 10:54: every [place] 56 morning. Medical Branch losartan 50 Yes 50mg Take 50 mg Univers mg tablet 1-05 by mouth ity of 10:54: daily. [place] [address] Medical Branch atorvastati 0 Yes 80mg Take 80 mg Univers n 80 mg 1-05 by mouth ity of tablet 10:54: at [place] 56 bedtime. Medical Branch cyclobenzap 0 Yes 5mg Take 5 mg U nivers rine 5 mg 1-05 by mouth ity of tablet 10:54: as needed [place] [address] for Muscle Medical Spasms. Branch ezetimibe 2021-0 Yes 10mg Take 10 mg Un dameon 10 mg 1-05 by mouth ity of tablet 10:54: daily. [place] [address] Medical Branch traMADoL 50 0 Yes 50mg Take 50 mg Univers mg tablet 1-05 by mouth ity of 10:54: every 6 [place] 56 (six) Medical hours as Branch needed. meloxicam 0 Yes 7.5mg Take 7.5 Uni vers 7.5 mg 1-05 mg by ity of tablet 10:54: mouth [place] 56 daily. Medical Branch clopidogrel 0 Yes 75mg Take 75 mg Univers (PLAVIX) 75 1-05 by mouth ity of mg tablet 10:54: daily. [place] [address] Medical Branch pravastatin 0 Yes 40mg Take [...] by ity of ER capsule 10:54: mouth. [place] [address] Medical Branch phenytoin 0 Yes 30mg Take 30 mg Un dameon Extended 30 1-05 by mouth ity of mg capsule 10:54: every [place] morning. Medical Branch losartan 50 0 Yes 50mg Take 50 mg Univers mg tablet 1-05 by mouth ity of 10:54: daily. [place] [address] Medical Branch atorvastati 0 Yes 80mg Take 80 mg Univers n 80 mg 1-05 by mouth ity of tablet 10:54: at [place] bedtime. Medical Branch cyclobenzap 0 Yes 5mg Take 5 mg U nivers rine 5 mg 1-05 by mouth ity of tablet 10:54: as needed [place] [address] for Muscle Medical Spasms. Branch ezetimibe 0 Yes 10mg Take 10 mg Un dameon 10 mg 1-05 by mouth ity of tablet 10:54: daily. [place] [address] Medical Branch traMADoL 50 Yes 50mg Take [...] mouth ity of mg tablet 10:54: daily. [place] [address] Medical Branch pravastatin Yes 40mg Take 40 mg Univers (PRAVACHOL) 1-05 by mouth ity of 40 mg 10:54: at [place] tablet 56 bedtime. Medical Branch GLUC Yes [...] by ity of ER capsule 10:54: mouth. [place] [address] Medical Branch phenytoin Yes 30mg Take 30 mg Un dameon Extended 30 1-05 by mouth ity of mg capsule 10:54: every [place] morning. Medical Branch losartan 50 Yes 50mg Take 50 mg Univers mg tablet 1-05 by mouth ity of 10:54: daily. [place] [address] Medical Branch atorvastati Yes 80mg Take 80 [...] s 40 MG 15:17: daily. Medical tablet 52 Center omeprazole 2016-0 Yes 20mg Q.5D Take [address] (PRILOSEC) 6-12 by mouth 2 Chung es 20 MG 15:17: (two) Medical capsule 52 times Center daily. pravastatin 2017-0 Yes 40mg QD Take [address] (PRAVACHOL) 6-12 by mouth Luke s 40 MG 15:17: daily. Medical tablet 52 Center Simethicone 2014-0 Yes 180mg Take 180 [...] Medical times Branch daily before meals. Simethicone 2015-0 Yes 180mg Take 180 U nivers (PHAZYME) 6-22 mg by ity of 180 mg Cap 00:00: mouth 3 [place] (three) Medical times Branch daily before meals. Simethicone 2015-0 Yes 180mg Take 180 U nivers (PHAZYME) 6-22 mg by ity of 180 mg Cap 00:00: mouth 3 [place] (three) Medical times Branch daily before meals. Simethicone 2015-0 Yes 180mg Take 180 U nivers (PHAZYME) 6-22 mg by ity of 180 mg Cap 00:00: mouth 3 [place] 00 (three) Medical times Branch daily before meals. metoprolol Yes 25mg Take 25 mg U [...] blood 2022-09-10 21:47:00 155 mm[Hg] Univer sity [facility] Diastolic blood 2022-09-10 21:47:00 88 mm[Hg] [facility] 2022-09-10 21:47:00 66 /min [facility] Body height 2022-09-10 21:47:00 172.7 cm [facility] Body weight 2022-09-10 21:47:00 83.462 kg Universi ty of [facility] BMI 2022-09-10 21:47:00 27.98 kg/m2 Universi ty [facility] Oxygen saturation in 2022-09-10 21:47:00 97 /min University of Arterial blood by [facility] Pulse oximetry Branch height 2022-07-05 11:30:00 68 [in_i] Common [facility] weight 2022-07-05 11:30:00 180 [lb_av] [facility] temperature 2022-07-05 11:30:00 97.6 [degF] [facility] bmi 2022-07-05 11:30:00 27.37 kg/m2 [facility] oximetry 2022-07-05 11:30:00 99 % [facility] respiratory rate 2022-07-05 11:30:00 18 /min Comm on [facility] blood pressure 2022-07-05 11:30:00 122 mm[Hg] Common [facility] - systolic [facility] blood pressure 2022-07-05 11:30:00 72 mm[Hg] Common [facility] - diastolic [facility] Systolic blood 2022-06-12 13:57:00 148 mm[Hg] Univer sity of pressure [facility] Diastolic blood 2022-06-12 13:57:00 87 mm[Hg] Unive rsity of pressure [facility] Heart rate 2022-06-12 13:57:00 79 /min Universi ty of [facility] Body height 2022-06-12 13:57:00 172.7 cm Universi ty of [facility] Body weight 2022-06-12 13:57:00 83.462 kg Universi ty [facility] BMI 2022-06-12 13:57:00 27.98 kg/m2 Universi ty [facility] Oxygen saturation in 2022-06-12 13:57:00 97 /min University of Arterial blood by [facility] Pulse oximetry Branch height 2022-03-28 15:15:00 68 [in_i] [facility] weight 2022-03-28 15:15:00 189.8 [lb_av] [facility] temperature 2022-03-28 15:15:00 98.6 [degF] [facility] bmi 2022-03-28 15:15:00 28.86 kg/m2 [facility] oximetry 2022-03-28 15:15:00 97 % [facility] respiratory rate 2022-03-28 15:15:00 16 /min Comm on [facility] blood pressure 2022-03-28 15:15:00 138 mm[Hg] [facility] - systolic [facility] blood pressure 2022-03-28 15:15:00 80 mm[Hg] [facility] diastolic [facility] Systolic blood 2021-05-30 16:31:00 119 mm[Hg] Univer sity of [facility] Diastolic blood 2021-05-30 16:31:00 72 mm[Hg] Unive rsity of [facility] Heart rate 2021-05-30 16:31:00 63 /min [facility] Respiratory rate 2021-05-30 16:31:00 19 /min [facility] Body height 2021-05-30 16:31:00 172.7 cm [facility] Body weight 2021-05-30 16:31:00 86.183 kg [facility] BMI 2021-05-30 16:31:00 28.89 kg/m2 [facility] Oxygen saturation in 2021-05-30 16:31:00 96 /min [facility] Arterial blood by [facility] Pulse oximetry Branch Procedures Procedure Date / Time Performed Performing Clinician Sour e EXTERNAL PROVIDER 2022-09-06 06:01:00 Doctor Unassigned, No Univ [facility] RECORDS Name Medical Branch ASSIGNMENT OF BENEFITS 2022-06-12 13:50:47 Doctor Unassigned, No [facility] Name Medical Branch MR BRAIN WO CONTRAST 2021-06-23 14:08:54 [facility] Start End Encounter Admission Attending Care Care Encounter Source Date/Time Date/Time Type Type Clinicians Facility Department ID 2022-03-28 Outpatient Alvarez, STLMLC [facility] [id number] Common 15:14:02 Derrek [facility] 2022-09-26 2022-09-26 Telephone Jason [facility] [id number] Univers 00:00:00 00:00:00 [facility] [id number] ity of [place] 4.2.7.2.686 Ernst as HUDSON?BLEA [id number] [address] MEDICAL OFFICE BUILDING 2022-09-10 2022-09-10 Outpatient SYLVAIN MALAGON [facility] [id number] Univers 15:40:00 16:26:56 SYLVAIN GOMEZ [facility] 2022-09-10 2022-09-10 Office Jason [facility] [id number] Univers 15:40:00 16:26:56 Visit [facility] [id number] ity of [place] 4.2.7.2.686 Ernst as HUDSON?BLEA [id number] [address] MEDICAL OFFICE BUILDING 2022-09-06 2022-09-06 Orders Doctor EASTON [id number] Univers 00:00:00 00:00:00 Only Unassigned, SAV 350.1.13.10 ity of [place] [facility] 4.2.7.2.686 Ernst as [id number] [address] 2022-08-14 2022-08-14 Outpatient SYLVAIN MALAGON [facility] [id number] Univers 08:40:00 08:40:00 SYLVAIN GOMEZ [facility] 2022-07-05 2022-07-05 OFFICE [facility] [id number] Co mmon 00:00:00 00:00:00 VISIT Tato WILSON PT - [facility] LEVEL [facility] 2022-06-12 2022-06-12 Outpatient SYLVAIN MALAGON [facility] [id number] Univers 09:00:00 10:25:45 JASONSYLVAIN GARCIA daylin [facility] 2022-06-12 2022-06-12 Office Jason [facility] [id number] Univers 09:00:00 10:25:[address] [facility] [id number] [facility] 4.2.7.2.686 [place] as HUDSON?BLEA [id number] [address] OFFICE [facility] 2022-06-12 2022-06-12 Orders Doctor EASTON [id number] Univers 00:00:00 00:00:00 Only Unassigned, SAV 350.1.13.10 ity of [place] [facility] 4.2.7.2.686 [place] as [id number] [address] 2022-03-28 2022-03-[address] [facility] [id number] Co mmon 00:00:00 00:00:00 VISIT Spirit ESTAB PT - [facility] LEVEL [facility] 2021-06-23 2021-06-23 Outpatient SYLVAIN MALAGON [facility] [id number] Univers 07:22:40 23:59:00 SYLVAIN GOMEZ [facility] 2021-06-23 2021-06-23 [facility] [id number] Univers 07:22:40 23:59:00 Encounter Sylvain [facility] [id number] ity of [phone] [place] MALATHI [address] [place] [address] 2021-05-30 2021-05-30 Office Jason, [facility] [id number] Univers 10:47:24 12:22:11 Visit Sylvain [facility] [id number] ity of [place] [id number] Ernst as Hduson?Blea [phone] Or drissreji perez [address] [place] [address] Office [facility] 2021-05-30 2021-05-30 Outpatient SYLVAIN MALAGON [facility] [id number] Univers 11:00:00 11:00:00 SYLVAIN GOMEZ [facility] 2020-09-19 2020-09-19 Outpatient Arvind WEISS [facility] [id number] Univers 08:40:00 08:40:00 LYNETTE mao [facility] 2020-08-23 2020-08-23 Outpatient R SYLVAIN GOMEZ [facility] [id number] Univers 10:00:00 10:00:00 SYLVAIN GOMEZ kaley [facility] Results Test Description Test Time Test Comments [...] (test code = Normal 762) BASIC METABOLIC [id number] 07:36:00 Test Item Value Reference Range Interpretation [...] S NOT APPLICABLE FOR DIALYSIS PATIEN TS. [id number] 07:33:00 Test Item Value Reference Range Interpretation [...] is 2.5-3.5 for patients with mechanical heart valves.[id number] 16:00:00 Test Item Value Reference Range Interpretation Comments PHOSPHORUS (BEAKER) (test code = 3.6 mg/dL 2.3-4.7 604) [id number] 16:00:00 Test Item Value Reference Range Interpretation Comments MAGNESIUM (BEAKER) (test code = 2.0 mg/dL 1.6-2.6 627) BASIC METABOLIC [id number] 16:00:00 Test Item Value Reference Range Interpretation [...] PATIEN TS. CBC W/PLT COUNT & AUTO [id number] 15:02:00 Test Item Value Reference Range Interpretation [...] MORPHOLOGY (BEAKER) (test code = Normal 762) [id number] 07:21:00 Test Item Value Reference Range Interpretation [...] 2.5-3.5 for patients with mechanical heart valves.CALCIUM, [id number] 06:48:00 Test Item Value Reference Range Interpretation Comments CALCIUM IONIZED (BEAKER) (test 1.05 mmol/L 1.12-1.27 L code = 698) PH, BLOOD (BEAKER) (test code = 7.40 1810) CBC W/PLT COUNT & AUTO [id number] 13:02:00 Test Item Value Reference Range Interpretation [...] RBCS(BEAKER) (test 1+ few code = 478) [id number] 07:15:00 Test Item Value Reference Range Interpretation Comments PHOSPHORUS (BEAKER) (test code = 3.2 mg/dL 2.3-4.7 604) [id number] 07:15:00 Test Item Value Reference Range Interpretation Comments MAGNESIUM (BEAKER) (test code = 2.1 mg/dL 1.6-2.6 627) BASIC METABOLIC [id number] 07:15:00 Test Item Value Reference Range Interpretation [...] NOT APPLICABLE FOR DIALYSIS PATIEN TS. CALCIUM, [id number] 06:56:00 Test Item Value Reference Range Interpretation Comments CALCIUM IONIZED (BEAKER) (test 1.00 mmol/L 1.12-1.27 L code = 698) PH, BLOOD (BEAKER) (test code = 7.39 1810) [id number] 06:45:00 Test Item Value Reference Range Interpretation [...] mechanical heart valves.CBC W/PLT COUNT & AUTO [id number] 07:23:00 Test Item Value Reference Range Interpretation [...] 1+ few code = 478) BASIC METABOLIC [id number] 04:52:00 Test Item Value Reference Range Interpretation [...] S NOT APPLICABLE FOR DIALYSIS PATIEN TS. [id number] 04:04:00 Test Item Value Reference Range Interpretation [...] mechanical heart valves.CBC W/PLT COUNT & AUTO [id number] 06:44:00 Test Item Value Reference Range Interpretation [...] K/ L 0.00-0.20 (test code = 417) [id number] 06:23:00 Test Item Value Reference Range Interpretation Comments PHOSPHORUS (BEAKER) (test code = 3.5 mg/dL 2.3-4.7 604) [id number] 06:23:00 Test Item Value Reference Range Interpretation Comments MAGNESIUM (BEAKER) (test code = 2.1 mg/dL 1.6-2.6 627) BASIC METABOLIC [id number] 06:23:00 Test Item Value Reference Range Interpretation [...] S NOT APPLICABLE FOR DIALYSIS PATIEN TS. [id number] 05:42:00 Test Item Value Reference Range Interpretation [...] 2.5-3.5 for patients with mechanical heart valves.CALCIUM, [id number] 05:34:00 Test Item Value Reference Range Interpretation Comments CALCIUM IONIZED (BEAKER) (test 1.08 mmol/L 1.12-1.27 L code = 698) PH, BLOOD (BEAKER) (test code = 7.38 1810) CBC W/PLT COUNT & AUTO [id number] 05:27:00 Test Item Value Reference Range Interpretation [...] L 0.00-0.20 (test code = 417) 0.00CALCIUM, [id number] 05:25:00 Test Item Value Reference Range Interpretation Comments CALCIUM IONIZED (BEAKER) (test 1.06 mmol/L 1.12-1.27 L code = 698) PH, BLOOD (BEAKER) (test code = 7.42 1810) [id number] 05:10:00 Test Item Value Reference Range Interpretation Comments PHOSPHORUS (BEAKER) (test code = 3.8 mg/dL 2.3-4.7 604) [id number] 05:10:00 Test Item Value Reference Range Interpretation Comments MAGNESIUM (BEAKER) (test code = 2.0 mg/dL 1.6-2.6 627) BASIC METABOLIC [id number] 05:10:00 Test Item Value Reference Range Interpretation [...] S NOT APPLICABLE FOR DIALYSIS PATIEN TS. [id number] 05:03:00 Test Item Value Reference Range Interpretation [...] 2.5-3.5 for patients with mechanical heart valves.CALCIUM, [id number] 06:19:00 Test Item Value Reference Range Interpretation Comments CALCIUM IONIZED (BEAKER) (test 0.95 mmol/L 1.12-1.27 L code = 698) PH, BLOOD (BEAKER) (test code = 7.50 1810) CBC W/PLT COUNT & AUTO [id number] 06:16:00 Test Item Value Reference Range Interpretation [...] K/ L 0.00-0.20 (test code = 417) [id number] 06:00:00 Test Item Value Reference Range Interpretation Comments PHOSPHORUS (BEAKER) (test code = 3.6 mg/dL 2.3-4.7 604) [id number] 06:00:00 Test Item Value Reference Range Interpretation Comments MAGNESIUM (BEAKER) (test code = 2.2 mg/dL 1.6-2.6 627) BASIC METABOLIC [id number] 06:00:00 Test Item Value Reference Range Interpretation [...] S NOT APPLICABLE FOR DIALYSIS PATIEN TS. [id number] 05:49:00 Test Item Value Reference Range Interpretation [...] is 2.5-3.5 for patients with mechanical heart valves.[id number] 13:57:00 Test Item Value Reference Range Interpretation Comments FIBRINOGEN LEVEL (BEAKER) (test 347 mg/dl 225-434 code = 658) CBC W/PLT COUNT & AUTO [id number] 07:20:00 Test Item Value Reference Range Interpretation [...] 0.00-0.20 (test code = 417) 0.00BASI METABOLIC [id number] 06:11:00 Test Item Value Reference Range Interpretation [...] S NOT APPLICABLE FOR DIALYSIS PATIEN TS. [id number] 06:01:00 Test Item Value Reference Range Interpretation [...] mechanical heart valves.CBC W/PLT COUNT & AUTO [id number] 07:13:00 Test Item Value Reference Range Interpretation [...] K/ L 0.00-0.20 (test code = 417) 0.00PT/[id number] 06:09:00 Test Item Value Reference Range Interpretation [...] for patients with mechanical heart valves.BASIC METABOLIC [id number] 06:08:00 Test Item Value Reference Range Interpretation [...] PATIEN TS. CBC W/PLT COUNT & AUTO [id number] 04:02:00 Test Item Value Reference Range Interpretation [...] 0.00-0.20 (test code = 417) 0.00BASIC METABOLIC [id number] 04:01:00 Test Item Value Reference Range Interpretation [...] S NOT APPLICABLE FOR DIALYSIS PATIEN TS. [id number] 03:47:00 Test Item Value Reference Range Interpretation [...] for patients with mechanical heart valves.OCCULT BLOOD, [id number] 15:31:00 Test Item Value Reference Range Interpretation Comments FECAL OCCULT BLOOD (BEAKER) (test Negative Negative code = 618) [id number] 13:55:00 Test Item Value Reference Range Interpretation [...] exclusion of thrombosis is within 95-100% range. [id number] 13:47:00 Test Item Value Reference Range Interpretation Comments FIBRINOGEN LEVEL (BEAKER) (test 424 mg/dl 225-434 code = 658) CBC W/PLT COUNT & AUTO [id number] 06:48:00 Test Item Value Reference Range Interpretation [...] K/ L 0.00-0.20 (test code = 417) [id number] 05:05:00 Test Item Value Reference Range Interpretation Comments PARTIAL THROMBOPLASTIN TIME 51.7 seconds 22.5-36.0 H (BEAKER) (test code = 760) POCT-GLUCOSE [id number] 04:37:00 Test Item Value Reference Range Interpretation Comments POC-GLUCOSE METER 108 mg/dL 70-110 TESTED AT [facility] 67 (BEAKER) (test code = [place] 1538) [address] [id number] 22:51:00 Test Item Value Reference Range Interpretation Comments PARTIAL THROMBOPLASTIN TIME 96.1 seconds 22.5-36.0 H (BEAKER) (test code = 760) [id number] 16:04:00 Test Item Value Reference Range Interpretation Comments PARTIAL THROMBOPLASTIN TIME 93.1 seconds 22.5-36.0 H (BEAKER) (test code = 760) [id number] 06:38:00 Test Item Value Reference Range Interpretation Comments PARTIAL THROMBOPLASTIN TIME 93.0 seconds 22.5-36.0 H (BEAKER) (test code = 760) [id number] 23:08:00 Test Item Value Reference Range Interpretation Comments PARTIAL THROMBOPLASTIN TIME 56.6 seconds 22.5-36.0 H (BEAKER) (test code = 760) [id number] 18:59:00 Test Item Value Reference Range Interpretation Comments PARTIAL THROMBOPLASTIN TIME 28.6 seconds 22.5-36.0 (BEAKER) (test code = 760) PROTHROMBIN [id number] 15:38:00 Test Item Value Reference Range Interpretation Comments PROTIME (BEAKER) (test code = 13.9 seconds 11.7-14.7 759) INR (BEAKER) (test code = 370) 1.1 <=5.9 RECOMMENDED COUMADIN/WARFARIN INR THERAPY RANGESSTANDARD DOSE: 2.0 - 3.0 Includes: PROPHYLAXIS for venous thrombosis, systemic embolization; TREATMENT for venous thrombosis and/or pulmonary embolus.HIGH RISK: Target INR is 2.5-3.5 for patients with mechanical heart valves.[id number] 12:27:00 Test Item Value Reference Range Interpretation Comments PARTIAL THROMBOPLASTIN TIME 65.9 seconds 22.5-36.0 H (BEAKER) (test code = 760) CBC W/PLT COUNT & AUTO [id number] 06:07:00 Test Item Value Reference Range Interpretation [...] 0.00-0.20 (test code = 417) 0.00BASIC METABOLIC [id number] 05:49:00 Test Item Value Reference Range Interpretation [...] S NOT APPLICABLE FOR DIALYSIS PATIEN TS. [id number] 05:25:00 Test Item Value Reference Range Interpretation Comments PARTIAL THROMBOPLASTIN TIME 83.0 seconds 22.5-36.0 H (BEAKER) (test code = 760) [id number] 22:17:00 Test Item Value Reference Range Interpretation Comments PARTIAL THROMBOPLASTIN TIME 91.0 seconds 22.5-36.0 H (BEAKER) (test code = 760) [id number] 16:11:00 Test Item Value Reference Range Interpretation Comments PARTIAL THROMBOPLASTIN TIME 94.0 seconds 22.5-36.0 H (BEAKER) (test code = 760) [id number] 09:42:00 Test Item Value Reference Range Interpretation Comments PARTIAL THROMBOPLASTIN TIME 89.9 seconds 22.5-36.0 H (BEAKER) (test code = 760) [id number] 02:30:00 Test Item Value Reference Range Interpretation Comments PARTIAL THROMBOPLASTIN TIME 108.5 seconds 22.5-36.0 H (BEAKER) (test code = 760) [id number] 18:47:00 Test Item Value Reference Range Interpretation Comments PARTIAL THROMBOPLASTIN TIME 74.1 seconds 22.5-36.0 H (BEAKER) (test code = 760) [id number] 12:42:00 Test Item Value Reference Range Interpretation Comments PARTIAL THROMBOPLASTIN TIME 48.7 seconds 22.5-36.0 H (BEAKER) (test code = 760) BASIC METABOLIC [id number] 05:29:00 Test Item Value Reference Range Interpretation [...] S NOT APPLICABLE FOR DIALYSIS PATIEN TS. [id number] 05:14:00 Test Item Value Reference Range Interpretation Comments PARTIAL THROMBOPLASTIN TIME 43.1 seconds 22.5-36.0 H (BEAKER) (test code = 760) [id number] 22:32:00 Test Item Value Reference Range Interpretation Comments PARTIAL THROMBOPLASTIN TIME 42.2 seconds 22.5-36.0 H (BEAKER) (test code = 760) [id number] 15:38:00 Test Item Value Reference Range Interpretation [...] (BEAKER) (test code = 413) 0.00BASIC METABOLIC [id number] 06:35:00 Test Item Value Reference Range Interpretation [...] (BEAKER) (test code = 413) 0.00PHENYTOIN LEVEL, [id number] 06:21:00 Test Item Value Reference Range Interpretation Comments PHENYTOIN (DILANTIN) (BEAKER) (test 4.0 ug/mL 10.0-20.0 L code = 605) URINALYSIS W/ REFLEX URINE [id number] 12:57:00 Test Item Value Reference Range Interpretation [...] /LPF = 514) SOURCE(BEAKER) (test code = 8035) HEPATIC FUNCTION [id number] 12:45:00 Test Item Value Reference Range Interpretation [...] = 22 U/L 6-55 347) BASIC METABOLIC [id number] 12:45:00 Test Item Value Reference Range Interpretation [...] 0-0 (BEAKER) (test code = 413) 0.00POCT-GLUCOSE [id number] 11:53:00 Test Item Value Reference Range Interpretation Comments POC-GLUCOSE METER 117 mg/dL 70-110 H TESTED AT [facility] 6720 (BEAKER) (test code = [place] 1538) [address] CBC W/PLT COUNT & AUTO [id number] 07:10:00 Test Item Value Reference Range Interpretation [...] K/ L 0.00-0.20 (test code = 417) [id number] 15:06:00 Test Item Value Reference Range Interpretation [...] 2.5-3.5 for patients with mechanical heart valves.POCT-GLUCOSE [id number] 12:02:00 Test Item Value Reference Range Interpretation Comments POC-GLUCOSE METER 137 mg/dL 70-110 H TESTED AT [facility] 6720 (BEAKER) (test code = [place]) [address] BASIC METABOLIC [id number] 05:46:00 Test Item Value Reference Range Interpretation [...] PATIEN TS. CBC W/PLT COUNT & AUTO [id number] 05:44:00 Test Item Value Reference Range Interpretation [...] L 0.00-0.20 (test code = 417) 0.00POCT-GLUCOSE [id number] 01:09:00 Test Item Value Reference Range Interpretation Comments POC-GLUCOSE METER 105 mg/dL 70-110 TESTED AT [place] [address] (BEBANNER) ([facility] 1538) [address] POCT-GLUCOSE [id number] 17:33:00 Test Item Value Reference Range Interpretation Comments POC-GLUCOSE METER 123 mg/dL 70-110 H TESTED AT [place] [address] (BEBANNER) (test [facility] = [facility] 1538) [address] POCT-GLUCOSE [id number] 12:08:00 Test Item Value Reference Range Interpretation Comments POC-GLUCOSE METER 104 mg/dL 70-110 TESTED AT [place] [address] (BEBANNER) (test [facility] = [facility] 1538) [address] POCT-GLUCOSE [id number] 06:26:00 Test Item Value Reference Range Interpretation Comments POC-GLUCOSE METER 139 mg/dL 70-110 H TESTED AT [place] [address] (BEBANNER) (test code = [facility] Arvind [facility] 1538) [address] BASIC METABOLIC [id number] 04:04:00 Test Item Value Reference Range Interpretation [...] PATIEN TS. CBC W/PLT COUNT & AUTO [id number] 03:54:00 Test Item Value Reference Range Interpretation [...] L 0.00-0.20 (test code = 417) 0.00POCT-GLUCOSE [id number] 00:30:00 Test Item Value Reference Range Interpretation Comments POC-GLUCOSE METER 106 mg/dL 70-110 TESTED AT [place] [address] (BEBANNER) (test code = [facility] 1538) [address] POCT-GLUCOSE [id number] 17:47:00 Test Item Value Reference Range Interpretation Comments POC-GLUCOSE METER 158 mg/dL 70-110 H TESTED AT [place] [address] (BEBANNER) (test code = [facility] 1538) [address] POCT-GLUCOSE [id number] 12:41:00 Test Item Value Reference Range Interpretation Comments POC-GLUCOSE METER 184 mg/dL 70-110 H TESTED AT [place] [address] (BEBANNER) (test code = [facility] 1538) [address] BASIC METABOLIC [id number] 07:20:00 Test Item Value Reference Range Interpretation [...] PATIEN TS. CBC W/PLT COUNT & AUTO [id number] 06:56:00 Test Item Value Reference Range Interpretation [...] NEUTROPHILS ABSOLUTE COUNT 2.64 K/ L 1.80-8.00 ([facility]) (test code = 670) LYMPHOCYTES ABSOLUTE COUNT 0.52 K/ L 1.48-4.50 L ([facility]) (test code = 414) MONOCYTES ABSOLUTE COUNT (AKER) 0.42 K/ L 0.00-1.30 (test code = 415) EOSINOPHILS ABSOLUTE COUNT 0.31 K/ L 0.00-0.50 (AKER) (test code = 416) BASOPHILS ABSOLUTE COUNT (AKER) 0.02 K/ L 0.00-0.20 (test code = 417) 0.00POCT-GLUCOSE [id number] 06:28:00 Test Item Value Reference Range Interpretation Comments POC-GLUCOSE METER 130 mg/dL 70-110 H TESTED AT [place] [address] ([facility]) (test code = [facility] 1538) [address] POCT-GLUCOSE [id number] 00:19:00 Test Item Value Reference Range Interpretation Comments POC-GLUCOSE METER 124 mg/dL 70-110 H TESTED AT [place] [address] ([facility]) (test code = [facility] 1538) [address] POCT-GLUCOSE [id number] 18:43:00 Test Item Value Reference Range Interpretation Comments POC-GLUCOSE METER 92 mg/dL 70-110 TESTED AT [place] [address] ([facility]) (test code = [facility] [address] 1538) POCT-GLUCOSE [id number] 12:34:00 Test Item Value Reference Range Interpretation Comments POC-GLUCOSE METER 176 mg/dL 70-110 H TESTED AT [place] [address] ([facility]) (test code = [facility] 1538) [address] CBC W/PLT COUNT & AUTO [id number] 09:33:00 Test Item Value Reference Range Interpretation Comments WHITE BLOOD CELL COUNT ([facility]) 4.3 K/ L 4.0-10.0 (test code = 775) RED BLOOD CELL COUNT ([facility]) 3.67 M/ L 4.20-5.80 L (test code = 761) HEMOGLOBIN ([facility]) (test code = 11.2 GM/DL 13.0-16.8 L 410) HEMATOCRIT ([facility]) (test code = 32.8 % 40.0-50.0 L [...] 0.00-0.20 (test code = 417) 0.00COMPREHENSIVE METABOLIC [id number] 08:56:00 Test Item Value Reference Range Interpretation [...] NOT APPLICABLE FOR DIALYSIS PATIEN TS. POCT-GLUCOSE [id number] 05:58:00 Test Item Value Reference Range Interpretation Comments POC-GLUCOSE METER 96 mg/dL 70-110 TESTED AT [place] [address] ([facility]) (test code = [facility] [address] 1538) POCT-GLUCOSE [id number] 00:23:00 Test Item Value Reference Range Interpretation Comments POC-GLUCOSE METER 110 mg/dL 70-110 TESTED AT [place] [address] ([facility]) (test code = [facility] 1538) [address] POCT-GLUCOSE [id number] 17:48:00 Test Item Value Reference Range Interpretation Comments POC-GLUCOSE METER 100 mg/dL 70-110 TESTED AT [place] [address] ([facility]) (test code = [facility] 1538) [address] POCT-GLUCOSE [id number] 12:09:00 Test Item Value Reference Range Interpretation Comments POC-GLUCOSE METER 103 mg/dL 70-110 TESTED AT [facility] 6720 ([facility]) (test code = JOSE Samuels [facility] 1538) [address] URINE [id number] 08:43:00 Test Item Value Reference Range Interpretation Comments CULTURE (BEAKER) (test code = 1095) No growth BASIC METABOLIC [id number] 06:59:00 Test Item Value Reference Range Interpretation [...] NOT APPLICABLE FOR DIALYSIS PATIEN TS. POCT-GLUCOSE [id number] 06:02:00 Test Item Value Reference Range Interpretation Comments POC-GLUCOSE METER 102 mg/dL 70-110 TESTED AT [facility] 6720 (BEBANNER) (test code = JOSE Samuels [facility] 1538) [address] PHENYTOIN LEVEL, [id number] 05:51:00 Test Item Value Reference Range Interpretation Comments PHENYTOIN (DILANTIN) (BEAKER) (test 7.3 ug/mL 10.0-20.0 L code = 605) CBC W/PLT COUNT & AUTO [id number] 05:41:00 Test Item Value Reference Range Interpretation [...] L 0.00-0.20 (test code = 417) 0.00POCT-GLUCOSE [id number] 03:20:00 Test Item Value Reference Range Interpretation Comments POC-GLUCOSE METER 121 mg/dL 70-110 H TESTED AT [place] [address] ([facility]) (test code = [facility] 1538) [address] POCT-GLUCOSE [id number] 18:47:00 Test Item Value Reference Range Interpretation Comments POC-GLUCOSE METER 116 mg/dL 70-110 H TESTED AT [place] [address] ([facility]) (test code = [facility] 1538) [address] PLATELET AGGREGATION: FUNCTION [id number] 13:09:00 Test Item Value Reference Range Interpretation Comments WEAK ADP 100 % 60-91 H RESULT([facility]) (test code = 2135) PLATELET FUNCTION 60-100% indicates SCREEN INTERP ([facility]) normal platelet (test code = 2173) function [id number] Justin Goel MD ([facility]) (test code = (electronic signature) 9242) PLATELET COUNT AGG 181 K/CU MM 150-430 ([facility]) (test code = 2656) PHENYTOIN LEVEL, [id number] 13:01:00 Test Item Value Reference Range Interpretation Comments PHENYTOIN (DILANTIN) ([facility]) (test 8.6 ug/mL 10.0-20.0 L code = 605) POCT-GLUCOSE [id number] 12:17:00 Test Item Value Reference Range Interpretation Comments POC-GLUCOSE METER 103 mg/dL 70-110 TESTED AT [place] [address] ([facility]) (test code = [facility] 1538) [address] POCT-GLUCOSE [id number] 06:29:00 Test Item Value Reference Range Interpretation Comments POC-GLUCOSE METER 93 mg/dL 70-110 TESTED AT [place] [address] ([facility]) (test code = [facility] [address] 1538) [id number] 05:36:00 Test Item Value Reference Range Interpretation Comments MAGNESIUM (BEAKER) (test code = 1.7 mg/dL 1.6-2.6 627) BASIC METABOLIC [id number] 05:36:00 Test Item Value Reference Range Interpretation [...] PATIEN TS. CBC W/PLT COUNT & AUTO [id number] 05:22:00 Test Item Value Reference Range Interpretation [...] L 0.00-0.20 (test code = 417) 0.00POCT-GLUCOSE [id number] 00:30:00 Test Item Value Reference Range Interpretation Comments POC-GLUCOSE METER 97 mg/dL 70-110 TESTED AT [place] [address] ([facility]) (test code = [place] [facility] [address] 1538) POCT-GLUCOSE [id number] 18:12:00 Test Item Value Reference Range Interpretation Comments POC-GLUCOSE METER 97 mg/dL 70-110 TESTED AT [place] [address] ([facility]) (test code = [place] [facility] [address] 1538) PLATELET AGGREGATION: FUNCTION [id number] 13:04:00 Test Item Value Reference Range Interpretation Comments WEAK ADP 100 % 60-91 H RESULT([facility]) (test code = 2135) PLATELET FUNCTION 60-100% indicates SCREEN INTERP ([facility]) normal platelet (test code = 2173) function [id number] Justin Goel MD ([facility]) (test code = (electronic signature) 1793) PLATELET COUNT AGG 142 K/CU MM 150-430 L ([facility]) (test code = 2656) POCT-GLUCOSE [id number] 12:12:00 Test Item Value Reference Range Interpretation Comments POC-GLUCOSE METER 98 mg/dL 70-110 TESTED AT [facility] 67 ([facility]) (test code = [facility] [place] [address] 1538) [id number] 10:53:00 Test Item Value Reference Range Interpretation Comments D-DIMER QUANTITATIVE (BEAKER) 2.83 MG/L FEU <0.50 H (test code [...] of thrombosis is within 95-100% range. THROMBIN [id number] 10:51:00 Test Item Value Reference Range Interpretation Comments THROMBIN TIME (BEAKER) (test code = 15.0 secs 13.8-20.0 550) [id number] 10:50:00 Test Item Value Reference Range Interpretation Comments FIBRINOGEN LEVEL (BEAKER) (test 462 mg/dl 225-434 H code = 658) URINALYSIS W/ [id number] 09:54:00 Test Item Value Reference Range Interpretation [...] 1583) SOURCE(BEAKER) (test code = Urine, [place] 1927) CBC W/PLT COUNT & AUTO [id number] 09:17:00 Test Item Value Reference Range Interpretation [...] 0.00-0.20 (test code = 417) 0.00PHENYTOIN LEVEL, [id number] 05:46:00 Test Item Value Reference Range Interpretation Comments PHENYTOIN (DILANTIN) (BEAKER) (test 1.1 ug/mL 10.0-20.0 L code = 605) BASIC METABOLIC [id number] 05:39:00 Test Item Value Reference Range Interpretation [...] NOT APPLICABLE FOR DIALYSIS PATIEN TS. POCT-GLUCOSE [id number] 00:45:00 Test Item Value Reference Range Interpretation Comments POC-GLUCOSE METER 93 mg/dL 70-110 TESTED AT [facility] 6720 ([facility]) (test code = [facility] [address] 1538) POCT-GLUCOSE [id number] 18:47:00 Test Item Value Reference Range Interpretation Comments POC-GLUCOSE METER 113 mg/dL 70-110 H TESTED AT [facility] 67[facility] ([facility]) (test code = [facility] 1538) [address] POCT-GLUCOSE [id number] 12:26:00 Test Item Value Reference Range Interpretation Comments POC-GLUCOSE METER 125 mg/dL 70-110 H TESTED AT [facility] 6720 (BEAKER) (test code = JOSE Samuels [facility] 1538) [address] POCT-GLUCOSE [id number] 06:19:00 Test Item Value Reference Range Interpretation Comments POC-GLUCOSE METER 128 mg/dL 70-110 H TESTED AT [facility] 67[facility] (BEAKER) (test code = CHANELLEWY Arvind [facility] 1538) [address] COMPREHENSIVE METABOLIC [id number] 04:41:00 Test Item Value Reference Range Interpretation [...] PATIEN TS. CBC W/PLT COUNT & AUTO [id number] 04:33:00 Test Item Value Reference Range Interpretation [...] L 0.00-0.20 (test code = 417) 0.00POCT-GLUCOSE [id number] 00:50:00 Test Item Value Reference Range Interpretation Comments POC-GLUCOSE METER 117 mg/dL 70-110 H TESTED AT [place] [address] ([facility]) (test code = [facility] 1538) [address] POCT-GLUCOSE [id number] 17:18:00 Test Item Value Reference Range Interpretation Comments POC-GLUCOSE METER 101 mg/dL 70-110 TESTED AT [place] [address] ([facility]) (test code = [facility] 1538) [address] POCT-GLUCOSE [id number] 12:59:00 Test Item Value Reference Range Interpretation Comments POC-GLUCOSE METER 80 mg/dL 70-110 TESTED AT [place] [address] ([facility]) (test code = [facility] [address] 1538) POCT-GLUCOSE [id number] 12:07:00 Test Item Value Reference Range Interpretation Comments POC-GLUCOSE METER 76 mg/dL 70-110 TESTED AT [place] [address] ([facility]) (test code = [facility] [address] 1538) POCT-GLUCOSE [id number] 06:18:00 Test Item Value Reference Range Interpretation Comments POC-GLUCOSE METER 86 mg/dL 70-110 TESTED AT [place] [address] ([facility]) (test code = [facility] [address] 1538) [id number] 06:06:00 Test Item Value Reference Range Interpretation Comments PHOSPHORUS (BEAKER) (test code = 2.8 mg/dL 2.3-4.7 604) Once on admission and Daily AM afterwardsOnce on admission and Daily AM [id number] 06:06:00 Test Item Value Reference Range Interpretation Comments MAGNESIUM (BEAKER) (test code = 1.8 mg/dL 1.6-2.6 627) Once on admission and Daily AM afterwardsOnce on admission and Daily AM afterwardsCOMPREHENSIVE METABOLIC [id number] 06:06:00 Test Item Value Reference Range Interpretation Comments TOTAL PROTEIN 6.5 gm/dL 6.0-8.3 (BEAKER) (test code = 770) ALBUMIN (AKER) 3.6 g/dL 3.5-5.0 (test code = 1145) [...] Daily AM afterwardsCBC W/PLT COUNT & AUTO [id number] 06:01:00 Test Item Value Reference Range Interpretation [...] K/ L 0.00-0.20 (test code = 417) [id number] 01:40:00 Test Item Value Reference Range Interpretation Comments POTASSIUM (BEAKER) (test code = 4.0 meq/L 3.5-5.1 379) [id number] 01:40:00 Test Item Value Reference Range Interpretation Comments SODIUM (BEAKER) (test code = 381) 138 meq/L 136-145 POCT-GLUCOSE [id number] 00:19:00 Test Item Value Reference Range Interpretation Comments POC-GLUCOSE METER 89 mg/dL 70-110 TESTED AT [facility] 6720 (BEAKER) (test [place] = [place] [address] 1538) [id number] 21:37:00 Test Item Value Reference Range Interpretation Comments SODIUM (BEAKER) (test code = 381) 137 meq/L 136-145 [id number] 19:02:00 Test Item Value Reference Range Interpretation Comments PARTIAL THROMBOPLASTIN TIME 24.9 seconds 22.5-36.0 (BEAKER) (test code = 760) PROTHROMBIN [id number] 19:01:00 Test Item Value Reference Range Interpretation Comments PROTIME (BEAKER) (test code = 13.8 seconds 11.7-14.7 759) INR (BEAKER) (test code = 370) 1.1 <=5.9 RECOMMENDED COUMADIN/WARFARIN INR THERAPY RANGESSTANDARD DOSE: 2.0 - 3.0 Includes: PROPHYLAXIS for venous thrombosis, systemic embolization; TREATMENT for venous thrombosis and/or pulmonary embolus.HIGH RISK: Target INR is 2.5-3.5 for patients with mechanical heart valves.[id number] 19:00:00 Test Item Value Reference Range Interpretation Comments POTASSIUM (BEAKER) (test code = 4.0 meq/L 3.5-5.1 379) [id number] 19:00:00 Test Item Value Reference Range Interpretation Comments SODIUM (BEAKER) (test code = 381) 137 meq/L 136-145 HEPATIC FUNCTION [id number] 19:00:00 Test Item Value Reference Range Interpretation [...] code = 16 U/L 6-55 347) POCT-GLUCOSE [id number] 18:42:00 Test Item Value Reference Range Interpretation Comments POC-GLUCOSE METER 96 mg/dL 70-110 TESTED AT [facility] 6720 (BEAKER) (test code = JOSE [place] [id number] 1154) PLATELET AGGREGATION: FUNCTION [id number] 11:40:00 Test Item Value Reference Range Interpretation Comments WEAK ADP 50 % 60-91 L RESULT(BEAKER) (test code = 213) PLATELET FUNCTION 50-59% indicates mild SCREEN INTERP platelet dysfunction (BEAKER) (test code = 2173) [id number] Justin Goel MD (BEAKER) (test code = (electronic signature) 9975) PLATELET COUNT AGG 124 K/CU MM 150-430 L (BEAKER) (test code = 2656) [id number] 05:44:00 Test Item Value Reference Range Interpretation Comments PHOSPHORUS (BEAKER) (test code = 3.1 mg/dL 2.3-4.7 604) [id number] 05:44:00 Test Item Value Reference Range Interpretation Comments MAGNESIUM (BEAKER) (test code = 1.9 mg/dL 1.6-2.6 627) COMPREHENSIVE METABOLIC [id number] 05:44:00 Test Item Value Reference Range Interpretation [...] PATIEN TS. CBC W/PLT COUNT & AUTO [id number] 05:29:00 Test Item Value Reference Range Interpretation [...] code = 417) 0.00URINALYSIS W/ REFLEX URINE [id number] 22:30:00 Test Item Value Reference Range Interpretation [...] (test code = 2795) TSH/FREE T4 IF [id number] 14:45:00 Test Item Value Reference Range Interpretation Comments THYROID STIMULATING HORMONE 2.66 uIU/mL 0.35-4.94 (BEAKER) (test code = 772) VITAMIN B12 AND [id number] 14:45:00 Test Item Value Reference Range Interpretation Comments VITAMIN B12 (BEAKER) (test code = 815 pg/mL 213-816 774) FOLATE (BEAKER) (test code = 362) 15.4 ng/mL >=7.0 Effective 07/06/2014: Folate Reference Range ChangeNew: >=7.0 Previous: >=5.4VALPROIC ACID LEVEL, [id number] 14:18:00 Test Item Value Reference Range Interpretation Comments VALPROIC ACID TOTAL (BEAKER) (test 24 ug/mL 50-100 L code = 924) Therapeutic range for some clinical conditions may be >100 ug/mLAMMONIA 2016-12-23 14:02:00 Test Item Value Reference Range Interpretation Comments AMMONIA (BEAKER) (test code = 348) 35 mol/L 18-72 BLOOD GAS, [id number] 13:50:00 Test Item Value Reference Range Interpretation [...] (BEAKER) (test code = 1819) 21.0 % [id number] 10:49:00 Test Item Value Reference Range Interpretation [...] 2.5-3.5 for patients with mechanical heart valves.PROTHROMBIN TIME/[id number] 10:48:00 Test Item Value Reference Range Interpretation Comments PROTIME (BEAKER) (test code = 14.7 seconds 11.7-14.7 759) INR (BEAKER) (test code = 370) 1.2 <=5.9 RECOMMENDED COUMADIN/WARFARIN INR THERAPY RANGESSTANDARD DOSE: 2.0 - 3.0 Includes: PROPHYLAXIS for venous thrombosis, systemic embolization; TREATMENT for venous thrombosis and/or pulmonary embolus.HIGH RISK: Target INR is 2.5-3.5 for patients with mechanical heart valves.POCT-GLUCOSE [id number] 07:47:00 Test Item Value Reference Range Interpretation Comments POC-GLUCOSE METER 95 mg/dL 70-110 TESTED AT [facility] 6720 (BEAKER) (test code = JOSE Samuels [facility] [address] 1538) BASIC METABOLIC [id number] 04:59:00 Test Item Value Reference Range Interpretation [...] PATIEN TS. CBC W/PLT COUNT & AUTO [id number] 04:49:00 Test Item Value Reference Range Interpretation [...] L 0.00-0.20 (test code = 417) 0.00POCT-GLUCOSE [id number] 04:02:00 Test Item Value Reference Range Interpretation Comments POC-GLUCOSE METER 114 mg/dL 70-110 H TESTED AT [facility] 6720 (BEAKER) (test code = JOSE [place] 1538) [address] POCT-GLUCOSE [id number] 07:17:00 Test Item Value Reference Range Interpretation Comments POC-GLUCOSE METER 134 mg/dL 70-110 H TESTED AT [facility] 6720 (BEAKER) (test code = JOSE Samuels [facility] 1538) [address] BASIC METABOLIC [id number] 03:52:00 Test Item Value Reference Range Interpretation [...] S NOT APPLICABLE FOR DIALYSIS PATIEN TS. [id number] 03:34:00 Test Item Value Reference Range Interpretation Comments MAGNESIUM (BEAKER) 2.1 mg/dL 1.6-2.6 Specimen slightly (test code = 627) hemolyzed [id number] 03:34:00 Test Item Value Reference Range Interpretation Comments PHOSPHORUS (BEAKER) 2.5 mg/dL 2.3-4.7 Specimen slightly (test code = 604) hemolyzed CBC W/PLT COUNT & AUTO [id number] 03:20:00 Test Item Value Reference Range Interpretation [...] L 0.00-0.20 (test code = 417) 0.00POCT-GLUCOSE [id number] 02:04:00 Test Item Value Reference Range Interpretation Comments POC-GLUCOSE METER 126 mg/dL 70-110 H TESTED AT [facility] 6720 ([facility]ANNER) (test code = JOSE [place] 1538) [address] POCT-GLUCOSE [id number] 00:58:00 Test Item Value Reference Range Interpretation Comments POC-GLUCOSE METER 145 mg/dL 70-110 H TESTED AT [facility] 6720 ([facility]) (test code = JOSE Samuels [place] 1538) [address] POCT-GLUCOSE [id number] 18:36:00 Test Item Value Reference Range Interpretation Comments POC-GLUCOSE METER 127 mg/dL 70-110 H TESTED AT [facility] 67[address] ([facility]) (test code = JOSE Samuels [place] 1538) [address] PLATELET AGGREGATION: FUNCTION [id number] 09:33:00 Test Item Value Reference Range Interpretation Comments WEAK ADP 53 % 60-91 L RESULT(BEAKER) (test code = 2135) PLATELET FUNCTION 50-59% indicates mild SCREEN INTERP platelet dysfunction (BEAKER) (test code = 2173) [id number] Teja Ferreira M.D. ([facility]BANNER) (test code = (electonic signature) 6826) PLATELET COUNT AGG 120 K/CU MM 150-430 L (BEAKER) (test code = 2656) [id number] 04:59:00 Test Item Value Reference Range Interpretation Comments MAGNESIUM (BEAKER) 2.1 mg/dL 1.6-2.6 Specimen slightly (test code = 627) hemolyzed Once on admission and Daily AM afterwardsOnce on admission and Daily AM afterwardsOnce on admission and Daily AM [id number] 04:59:00 Test Item Value Reference Range Interpretation [...] Specimen slightly (test code = 347) hemolyzed PT/[id number] 22:52:00 Test Item Value Reference Range Interpretation [...] patients with mechanical heart valves.VALPROIC ACID LEVEL, [id number] 20:34:00 Test Item Value Reference Range Interpretation Comments VALPROIC ACID TOTAL (BEAKER) (test 19 ug/mL 50-100 L code = 924) Therapeutic range for some clinical conditions may be >100 ug/mLCREATINE KINASE (CK), TOTAL AND [id number] 10:02:00 Test Item Value Reference Range Interpretation Comments CREATINE KINASE TOTAL (BEAKER) 106 U/L 29-200 (test code = 380) CREATINE KINASE-MB (BEAKER) (test 1.4 ng/mL 0.0-6.6 code = 750) CREATINE KINASE-MB INDEX (BEAKER) 1.3 % (test code = 395) Effective 07/06/2014: CK-MB Reference Range ChangeNew: 0.0-6.6 Previous: 0.0-4.9CK-MB Reference Range:<6.7 Normal6.7-10.0 Borderline>10.0 Abnormal TROPONIN [id number] 10:00:00 Test Item Value Reference Range Interpretation [...] 0.0-4.9CK-MB Reference Range:<6.7 Normal6.7-10.0 Borderline>10.0 Abnormal TROPONIN [id number] 00:05:00 Test Item Value Reference Range Interpretation [...] Reference Range Interpretation Comments CREATINE KINASE TOTAL (JOSEAKER) 38 U/L 29-200 (test code = 380) CREATINE KINASE-MB (BEAKER) (test 0.6 ng/mL 0.0-6.6 code = 750) CREATINE KINASE-MB INDEX (BEAKER) 1.6 % (test code = 395) Effective 07/06/2014: CK-MB Reference Range ChangeNew: 0.0-6.6 Previous: 0.0-4.9CK-MB Reference Range:<6.7 Normal6.7-10.0 Borderline>10.0 Abnormal TROPONIN [id number] 18:06:00 Test Item Value Reference Range Interpretation [...] acute neurological disease, and persistent tachyarrhythmia.COMPREHENSIVE METABOLIC [id number] 18:03:00 Test Item Value Reference Range Interpretation [...] PATIEN TS. CBC W/PLT COUNT & AUTO [id number] 17:43:00 Test Item Value Reference Range Interpretation [...] K/ L 0.00-0.20 (test code = 417) [id number] 05:44:00 Test Item Value Reference Range Interpretation Comments MAGNESIUM (BEAKER) (test code = 2.0 mg/dL 1.6-2.6 627) [id number] 11:00:00 Test Item Value Reference Range Interpretation Comments RPR SCREEN (BEAKER) (test code = Nonreactive Nonreactive 420) HEMOGLOBIN [id number] 10:35:00 Test Item Value Reference Range Interpretation Comments HEMOGLOBIN A1C (BEAKER) (test code = 5.1 % 4.3-6.1 368) CBC W/PLT COUNT & AUTO [id number] 07:10:00 Test Item Value Reference Range Interpretation [...] L 0.00-0.20 (test code = 417) 0.00VITAMIN [id number] 06:57:00 Test Item Value Reference Range Interpretation Comments VITAMIN B12 (BEAKER) (test code = 584 pg/mL 213-816 774) TSH/FREE T4 IF [id number] 06:57:00 Test Item Value Reference Range Interpretation Comments THYROID STIMULATING HORMONE 0.98 uIU/mL 0.35-4.94 (BEAKER) (test code = 772) [id number] 06:15:00 Test Item Value Reference Range Interpretation Comments MAGNESIUM (BEAKER) (test code = 2.1 mg/dL 1.6-2.6 627) COMPREHENSIVE METABOLIC [id number] 06:15:00 Test Item Value Reference Range Interpretation [...] APPLICABLE FOR DIALYSIS PATIEN TS. BASIC METABOLIC [id number] 06:15:00 Test Item Value Reference Range Interpretation [...] NOT APPLICABLE FOR DIALYSIS PATIEN TS. LIPID [id number] 06:15:00 Test Item Value Reference Range Interpretation [...] 130-159 High 160-189 Very High >=190BASIC METABOLIC [id number] 05:07:00 Test Item Value Reference Range Interpretation [...] PATIEN TS. CBC W/PLT COUNT & AUTO [id number] 05:00:00 Test Item Value Reference Range Interpretation [...] 0.00-0.20 (test code = 417) 0.00BASI METABOLIC [id number] 19:13:00 Test Item Value Reference Range Interpretation [...] PATIEN TS. CBC W/PLT COUNT & AUTO [id number] 19:08:00 Test Item Value Reference Range Interpretation [...] L 0.00-0.20 (test code = 417) 0.00POCT-GLUCOSE [id number] 14:07:00 Test Item Value Reference Range Interpretation Comments POC-GLUCOSE METER 99 mg/dL 70-110 TESTED AT [facility] 6720 (BEAKER) (test code = [place] [address] 1538) POCT-GLUCOSE [id number] 13:05:00 Test Item Value Reference Range Interpretation Comments POC-GLUCOSE METER 115 mg/dL 70-110 H TESTED AT [facility] 6720 (BEAKER) (test code = [place] 1538) [address] POCT-GLUCOSE [id number] 07:34:00 Test Item Value Reference Range Interpretation Comments POC-GLUCOSE METER 145 mg/dL 70-110 H TESTED AT [facility] 6720 (BEAKER) (test code = [facility] Arvind [facility] 1538) [address] [id number] 06:56:00 Test Item Value Reference Range Interpretation Comments PHOSPHORUS (BEAKER) (test code = 3.3 mg/dL 2.3-4.7 604) [id number] 06:56:00 Test Item Value Reference Range Interpretation Comments MAGNESIUM (BEAKER) (test code = 1.9 mg/dL 1.6-2.6 627) BASIC METABOLIC [id number] 06:56:00 Test Item Value Reference Range Interpretation [...] PATIEN TS. CBC W/PLT COUNT & AUTO [id number] 06:34:00 Test Item Value Reference Range Interpretation [...] K/ L 0.00-0.20 (test code = 417) [id number] 06:29:00 Test Item Value Reference Range Interpretation Comments PARTIAL THROMBOPLASTIN TIME 30.9 seconds 22.5-36.0 (BEAKER) (test code = 760) PROTHROMBIN TIME/[id number] 06:28:00 Test Item Value Reference Range Interpretation Comments PROTIME (BEBANNER) (test code = 14.0 seconds 11.7-14.7 759) INR (BEBANNER) (test code = 370) 1.1 <=5.9 RECOMMENDED COUMADIN/WARFARIN INR THERAPY RANGESSTANDARD DOSE: 2.0 - 3.0 Includes: PROPHYLAXIS for venous thrombosis, systemic embolization; TREATMENT for venous thrombosis and/or pulmonary embolus.HIGH RISK: Target INR is 2.5-3.5 for patients with mechanical heart valves.POCT-GLUCOSE [id number] 05:42:00 Test Item Value Reference Range Interpretation Comments POC-GLUCOSE METER 90 mg/dL 70-110 TESTED AT [place] [address] ([facility]) ([facility] Samuels [facility] [address] 1538) POCT-GLUCOSE [id number] 23:43:00 Test Item Value Reference Range Interpretation Comments POC-GLUCOSE METER 118 mg/dL 70-110 H TESTED AT [place] [address] ([facility]) (test code = [facility] 1538) [address] POCT-GLUCOSE [id number] 17:19:00 Test Item Value Reference Range Interpretation Comments POC-GLUCOSE METER 127 mg/dL 70-110 H TESTED AT [place] [address] ([facility]) (test code = [facility] 1538) [address] POCT-GLUCOSE [id number] 12:30:00 Test Item Value Reference Range Interpretation Comments POC-GLUCOSE METER 103 mg/dL 70-110 TESTED AT [facility] 6720 (BEAKER) (test code = [place]SE [place] 1538) [address] POCT-GLUCOSE [id number] 09:52:00 Test Item Value Reference Range Interpretation Comments POC-GLUCOSE METER 137 mg/dL 70-110 H TESTED AT [facility] 6720 (BEAKER) (test code = JOSE [place] 1538) [address] CBC W/PLT COUNT & AUTO [id number] 06:43:00 Test Item Value Reference Range Interpretation [...] K/ L 0.00-0.20 (test code = 417) [id number] 06:39:00 Test Item Value Reference Range Interpretation Comments PHOSPHORUS (BEAKER) (test code = 3.2 mg/dL 2.3-4.7 604) [id number] 06:39:00 Test Item Value Reference Range Interpretation Comments MAGNESIUM (BEAKER) (test code = 1.9 mg/dL 1.6-2.6 627) BASIC METABOLIC [id number] 06:39:00 Test Item Value Reference Range Interpretation [...] NOT APPLICABLE FOR DIALYSIS PATIEN TS. PROTHROMBIN [id number] 06:31:00 Test Item Value Reference Range Interpretation Comments PROTIME (BEAKER) (test code = 13.7 seconds 11.7-14.7 759) INR (BEAKER) (test code = 370) 1.1 <=5.9 RECOMMENDED COUMADIN/WARFARIN INR THERAPY RANGESSTANDARD DOSE: 2.0 - 3.0 Includes: PROPHYLAXIS for venous thrombosis, systemic embolization; TREATMENT for venous thrombosis and/or pulmonary embolus.HIGH RISK: Target INR is 2.5-3.5 for patients with mechanical heart valves.[id number] 06:31:00 Test Item Value Reference Range Interpretation Comments PARTIAL THROMBOPLASTIN TIME 30.3 seconds 22.5-36.0 ([facility]) (test code = 760) POCT-GLUCOSE [id number] 21:46:00 Test Item Value Reference Range Interpretation Comments POC-GLUCOSE METER 97 mg/dL 70-110 TESTED AT [place] [address] ([facility]) (test code = [facility] [address] 1538) POCT-GLUCOSE [id number] 12:19:00 Test Item Value Reference Range Interpretation Comments POC-GLUCOSE METER 118 mg/dL 70-110 H TESTED AT [place] [address] ([facility]) (test code = [facility] 1538) [address] POCT-GLUCOSE [id number] 08:50:00 Test Item Value Reference Range Interpretation Comments POC-GLUCOSE METER 135 mg/dL 70-110 H TESTED AT [place] [address] ([facility]) (test code = [facility] 1538) [address] POCT-GLUCOSE [id number] 07:45:00 Test Item Value Reference Range Interpretation Comments POC-GLUCOSE METER 94 mg/dL 70-110 TESTED AT [place] [address] ([facility]) (test code = [facility] [address] 1538) CBC W/PLT COUNT & AUTO [id number] 05:32:00 Test Item Value Reference Range Interpretation Comments WHITE BLOOD CELL COUNT ([facility]) 4.8 K/ L 4.0-10.0 (test code = 775) RED BLOOD CELL COUNT ([facility]) 4.11 M/ L 4.20-5.80 L (test code = 761) HEMOGLOBIN ([facility]) (test code = 12.7 GM/DL 13.0-16.8 L 410) HEMATOCRIT ([facility]) (test code = 36.8 % 40.0-50.0 L [...] K/ L 0.00-0.20 (test code = 417) [id number] 05:27:00 Test Item Value Reference Range Interpretation Comments PHOSPHORUS (BEAKER) (test code = 3.4 mg/dL 2.3-4.7 604) [id number] 05:27:00 Test Item Value Reference Range Interpretation Comments MAGNESIUM (BEAKER) (test code = 2.0 mg/dL 1.6-2.6 627) BASIC METABOLIC [id number] 05:27:00 Test Item Value Reference Range Interpretation [...] GFR I S NOT APPLICABLE FOR DIALYSIS DANICA RODRIGUEZ. [id number] 05:09:00 Test Item Value Reference Range Interpretation Comments PARTIAL THROMBOPLASTIN TIME 29.4 seconds 22.5-36.0 (BEAKER) (test code = 760) PROTHROMBIN [id number] 05:08:00 Test Item Value Reference Range Interpretation Comments PROTIME (BEAKER) (test code = 13.6 seconds 11.7-14.7 759) INR (BEAKER) (test code = 370) 1.0 <=5.9 RECOMMENDED COUMADIN/WARFARIN INR THERAPY RANGESSTANDARD DOSE: 2.0 - 3.0 Includes: PROPHYLAXIS for venous thrombosis, systemic embolization; TREATMENT for venous thrombosis and/or pulmonary embolus.HIGH RISK: Target INR is 2.5-3.5 for patients with mechanical heart valves.POCT-GLUCOSE [id number] 18:02:00 Test Item Value Reference Range Interpretation Comments POC-GLUCOSE METER 120 mg/dL 70-110 H TESTED AT [facility] 6720 ([facility]) (test [facility] = [facility] 1538[facility] [address] POCT-GLUCOSE [id number] 12:36:00 Test Item Value Reference Range Interpretation Comments POC-GLUCOSE METER 109 mg/dL 70-110 TESTED AT [facility] 6720 ([employer] [facility]) (test code = [place]ERT[place] 1538) [address] POCT-GLUCOSE [id number] 07:59:00 Test Item Value Reference Range Interpretation Comments POC-GLUCOSE METER 104 mg/dL 70-110 TESTED AT [facility] 6720 ([facility]) (test code = JOSE Samuels [place] 1538) [address] POCT-GLUCOSE [id number] 06:56:00 Test Item Value Reference Range Interpretation Comments POC-GLUCOSE METER 102 mg/dL 70-110 TESTED AT [facility] 6720 ([facility]) (test code = JOSE Samuels [facility] 1538) [address] TROPONIN [id number] 02:03:00 Test Item Value Reference Range Interpretation [...] failure, acidosis, acute neurological disease, and persistent tachyarrhythmia.[id number] 01:55:00 Test Item Value Reference Range Interpretation Comments MAGNESIUM (BEAKER) 2.2 mg/dL 1.6-2.6 Specimen slightly (test code = 627) hemolyzed [id number] 01:55:00 Test Item Value Reference Range Interpretation Comments PHOSPHORUS (BEAKER) 2.9 mg/dL 2.3-4.7 Specimen slightly (test code = 604) hemolyzed BASIC METABOLIC [id number] 01:55:00 Test Item Value Reference Range Interpretation [...] S NOT APPLICABLE FOR DIALYSIS PATIEN TS. [id number] 01:33:00 Test Item Value Reference Range Interpretation Comments PARTIAL THROMBOPLASTIN TIME 30.2 seconds 22.5-36.0 (BEAKER) (test code = 760) PROTHROMBIN [id number] 01:32:00 Test Item Value Reference Range Interpretation Comments PROTIME (BEAKER) (test code = 14.7 seconds 11.7-14.7 759) INR (BEAKER) (test code = 370) 1.2 <=5.9 RECOMMENDED COUMADIN/WARFARIN INR THERAPY RANGESSTANDARD DOSE: 2.0 - 3.0 Includes: PROPHYLAXIS for venous thrombosis, systemic embolization; TREATMENT for venous thrombosis and/or pulmonary embolus.HIGH RISK: Target INR is 2.5-3.5 for patients with mechanical heart valves.CBC W/PLT COUNT & AUTO [id number] 01:23:00 Test Item Value Reference Range Interpretation [...] L 0.00-0.20 (test code = 417) 0.00POCT-GLUCOSE [id number] 00:13:00 Test Item Value Reference Range Interpretation Comments POC-GLUCOSE METER 104 mg/dL 70-110 TESTED AT [place] [address] ([facility]) (test code = JOSE [place] 1538) [id number] POCT-GLUCOSE [id number] 17:43:00 Test Item Value Reference Range Interpretation Comments POC-GLUCOSE METER 131 mg/dL 70-110 H TESTED AT [place] [address] ([facility]) (test code = [place]SE [place] 1538) [address] TROPONIN [id number] 17:29:00 Test Item Value Reference Range Interpretation Comments TROPONIN I ([facility]) (test code = 397) < ng/mL [...] acidosis, acute neurological disease, and persistent tachyarrhythmia.POCT-GLUCOSE [id number] 13:05:00 Test Item Value Reference Range Interpretation Comments POC-GLUCOSE METER 94 mg/dL 70-110 TESTED AT [facility] 6720 (BEAKER) (test code = JOSE Samuels [facility] [address] 1538) RAPID DRUG SCREEN, [id number] 09:31:00 Test Item Value Reference Range Interpretation [...] ng/mLAmphetamine/ 1000 ng/mL MethamphetamineOxycodone 300 ng/mLURINALYSIS W/ [id number] 09:29:00 Test Item Value Reference Range Interpretation [...] 516) SOURCE(BEAKER) (test code = Urine, [place] 0738) PLATELET AGGREGATION: FUNCTION [id number] 08:52:00 Test Item Value Reference Range Interpretation Comments WEAK ADP 13 % 60-91 L RESULT(BEAKER) (test code = 2135) PLATELET FUNCTION 0-39% indicates marked SCREEN INTERP platelet dysfunction (BEAKER) (test code = 2173) [id number] Racquel Acevedo MD (BEAKER) (test code = (electronic signature) 5688) PLATELET COUNT AGG 141 K/CU MM 150-430 L (BEAKER) (test code = 2656) TROPONIN [id number] 05:06:00 Test Item Value Reference Range Interpretation [...] failure, acidosis, acute neurological disease, and persistent tachyarrhythmia.[id number] 04:56:00 Test Item Value Reference Range Interpretation Comments MAGNESIUM (BEAKER) 2.0 mg/dL 1.6-2.6 Specimen slightly (test code = 627) hemolyzed [id number] 04:56:00 Test Item Value Reference Range Interpretation Comments PHOSPHORUS (BEAKER) 1.9 mg/dL 2.3-4.7 L Specimen slightly (test code = 604) hemolyzed BASIC METABOLIC [id number] 04:56:00 Test Item Value Reference Range Interpretation [...] I S NOT APPLICABLE FOR DIALYSIS PATIEN [id number] 04:49:00 Test Item Value Reference Range Interpretation Comments COL/EPI CLOSURE TIME (BEAKER) 104 Seconds 78-191 (test code = 1801) COL/ADP CLOSURE TIME (BEAKER) 65 Seconds 43-122 (test code = 1802) PLATELET COUNT AGG (BEAKER) (test 148 K/CU MM 150-430 L code = 2656) CBC W/PLT COUNT & AUTO [id number] 04:34:00 Test Item Value Reference Range Interpretation [...]
[2022-09-27 02:02] LABS: Absolute Lymphocytes (CBC) 0.8 K/uL (0.7-4.9); Hematocrit 36.1 % (39.6-49.0); Lymphocytes % 20.2 % (15.3-44.8); MCV 89.7 fL (80-100); MPV 7.4 fL (7.6-11.3); RBC Red Blood Cell Count 4.02 M/uL (4.33-5.43)
[2022-09-27 02:03] LABS: Protime INR 0.96
[2022-09-27] MEDS ORDERED: NA CHLORIDE 0.9% 1,000 ML ONE (02:04)
[2022-09-27 02:09] LABS: SARS-CoV-2 Antigen Rapid Res Negative (Negative)
[2022-09-27 02:19] LABS: ALT/SGPT 31 U/L (16-61); AST/SGOT 23 U/L (15-37); Albumin 3.3 g/dL (3.4-5.0); Alkaline Phosphatase 112 U/L (45-117); BUN Blood Urea Nitrogen 16 mg/dL (7-18); Bicarbonate 28 mmol/L (21-32); Bilirubin Total 0.3 mg/dL (0.2-1.0); Glomerular Filtration Rate 69 ml/min (=/>90); Glucose Level 111 mg/dL (74-106); Magnesium 2.1 mg/dL (1.6-2.4); NT PRO-BNP 90 pg/mL (<450); Potassium 3.8 mmol/L (3.5-5.1); Protein, Total 6.6 g/dL (6.4-8.2); Sodium Level 140 mmol/L (136-145); Troponin High Sensitivity 40.9 pg/mL (<58.9)
[2022-09-27 02:20] LABS: Bilirubin Direct < 0.1 mg/dL (0-0.2)
[2022-09-27 03:11] LABS: Urine Blood Negative (Negative); Urine Glucose Negative (Negative); Urine Protein Negative (Negative)
--- NOTE | 2022-09-27 03:11 | ER ---
Nurse's Notes [facility] Name: Nelson Murillo Age: 77 yrs Sex: Male : 1945 Arrival Date: 09/27/2022 Time: 00:59 Bed 3 Private MD: Diagnosis: Dementia in other diseases classified elsewhere without behavioral disturbance;Anemia, unspecified Presentation: 09/27 00:59 Chief complaint: EMS states: reports erratic behavior x 3 days gradually kl progressing. Coronavirus screen: Vaccine status: Patient reports receiving the 2nd dose of the covid vaccine. Ebola Screen: Patient negative for fever greater than or equal to 101.5 degrees Fahrenheit, and additional compatible Ebola Virus Disease symptoms. Initial Sepsis Screen: Does the patient meet any 2 criteria? No. Patient's initial sepsis screen is negative. Does the patient have a suspected source of infection? No. Patient's initial sepsis screen is negative. Risk Assessment: Do you want to hurt yourself or someone else? Patient reports no desire to harm self or others. Onset of symptoms was September 24, 2021. 00:59 Method Of Arrival: EMS: [facility] 00:59 Acuity: HILARIA 3 kl 01:04 Note EMS reports pt had brain scan yesterday. kl 01:14 Note reports new medication Mirtazapine 7.5mg for dementia /sleep starts aug kl . Triage Assessment: 01:03 General: Appears in no apparent distress. comfortable, Behavior is calm, cooperative. kl Pain: Denies pain. EENT: No deficits noted. Neuro: Level of Consciousness is awake, alert, obeys commands, Oriented to person, place, time, situation, Casing Inspector are weak bilaterally Moves all extremities. Speech is normal. Cardiovascular: No deficits noted. Respiratory: No deficits noted. GI: No deficits noted. No signs and/or symptoms were reported involving the gastrointestinal system. : No deficits noted. No signs and/or symptoms were reported regarding the genitourinary system. Derm: No deficits noted. No signs and/or symptoms reported regarding the dermatologic system. Historical: - Allergies: 01:01 Aspirin; kl 01:01 Ativan; kl 01:01 blood thinners; Can't take any blood thinners due to previous brain bleed; kl - Home Meds: 01:01 atorvastatin 80mg daily [Active]; calcium 600 +D3 twice a day [Active]; Dilantin 200mg kl Oral cap twice a day [Active]; Dilantin 30 mg Oral cap daily [Active]; ezetimibe 10 mg Oral nightly [Active]; Feosol 325 mg (65 mg iron) Oral tab daily [Active]; Fesol 65mg every Mon/wed/fri [Active]; glucosamine sulfate 1500 every day Oral [Active]; losartan 50mg daily [Active]; metoprolol tartrate 25 mg Oral tab 1 tab 2 times per day [Active]; Metoprolol Tartrate Oral 25 mg twice a day [Active]; Mirtazapine Oral 7.5 mg nightly [Active]; omeprazole 40 mg Oral cpDR once daily [Active]; Omeprazole Oral 40 mg daily [Active]; - PMHx: 01:01 Brain Bleeds x4; CVA; Dementia; GERD; High Cholesterol; Hypertension; Seizures; 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 - Social history:: Smoking status: Patient reports the use of cigarette tobacco products, former. - Family history:: not pertinent. Screenin:16 [facility] ED Fall Risk Assessment (Adult) History of falling in the last 3 months, kl including since admission No falls in past 3 months (0 pts) Confusion or Disorientation Yes (5 pts) Intoxicated or Sedated No (0 pts) Impaired Gait Yes (1 pt) Mobility Assist Device Used No (0 pt) Altered Elimination No (0 pt) Score/Fall Risk Level 3 or more points = High Risk Oriented to surroundings, Maintained a safe environment, Educated pt \T\ family on fall prevention, incl call for assistance when getting out of bed, Hourly rounding (assess needs \T\ fall precautionary measures) done, Offered frequent toileting (1:1 observation), Utilized family, sitter, or virtual assistant sales director as indicated. Abuse screen: Denies threats or abuse. Nutritional screening: No deficits noted. Tuberculosis screening: No symptoms or risk factors identified. 02:00 Patient has been NPO before screening. The patient is alert, able to follow commands. ll3 The patient does not exhibit slurred or garbled speech The patient is not exhibiting difficulty speaking. The patient does not exhibit difficulty understanding words. The patient is able to swallow own secretions with no drooling or need for suction. Patient tolerated one teaspoon of water. No drooling, immediate coughing, gurgling, or clearing of the throat was noted. The patient tolerated 90mL of water. No drooling, immediate coughing, gurgling, or clearing of the throat was noted. The patient passed the bedside swallow screening. Oral medications may be given as ordered. Contact Physician for further diet orders. Provider notified of bedside swallow screening results: Claude Turner MD. Assessment: 02:56 Reassessment: Patient appears in no apparent distress at this time. Patient and/or kl family updated on plan of care and expected duration. Pain level reassessed. Patient is alert, oriented x 3, equal unlabored respirations, skin warm/dry/pink. 03:32 Reassessment: Patient and/or family updated on plan of care and expected duration. Pain kl level reassessed. Patient is alert, oriented x 3, equal unlabored respirations, skin warm/dry/pink. Vital Signs: 00:59 BP 151 / 88; Pulse 76; Resp 18; Temp 98.5(O); Pulse Ox 98% on R/A; kl 02:28 BP 112 / 60; Pulse 63; Resp 12; Pulse Ox 99% on R/A; ll3 02:57 BP 120 / 79; Pulse 63; Resp 15; Pulse Ox 98% on R/A; kl 03:32 BP 134 / 62; Pulse 78; Resp 18; Pulse Ox 99% on R/A; kl ED Course: 00:59 Patient arrived in ED. ll3 01:01 Triage completed. kl 01:19 Stroke CXR 1 View In Process Unspecified. EDMS 01:24 Claude Turner MD is Attending Physician. dariel 01:32 No provider procedures requiring assistance completed. Inserted saline lock: 20 gauge kl in left antecubital area, using aseptic technique. Blood collected. 01:32 Dilantin Sent. kl 01:33 SARS RAPID Sent. kl 01:33 Basic Metabolic Panel Sent. kl 01:33 CBC with Diff Sent. kl 01:33 Hepatic Function Sent. kl 01:33 High Sensitivity Troponin Sent. kl 01:33 Magnesium Sent. kl 01:33 Protime (+inr) Sent. kl 01:33 Ptt, Activated Sent. kl 01:41 Head Brain Wo Cont In Process Unspecified. EDMS 02:56 No apparent distress. Resting quietly. Appears to be sleeping. kl 02:57 Patient has correct armband on for positive identification. Call light in reach. Side kl rails up X2. 03:10 Sylvain Spencer MD is Referral Physician. dariel 03:32 IV discontinued, intact, bleeding controlled, No redness/swelling at site. Pressure kl dressing applied. 03:33 EKG completed in triage. Results shown to MD. Administered Medications: 02:07 Drug: NS 0.9% 1000 ml Route: IV; Rate: 1 bolus; Site: left antecubital; ll3 Medication: 03:33 VIS not applicable for this client. Point of Care Testing: Blood Glucose: 01:19 Blood Glucose: 110 mg/dL; ll3 Ranges: Outcome: 03:10 Discharge ordered by . dariel 03:33 Discharged to home ambulatory, with family. 03:33 Condition: stable 03:33 Discharge instructions given to family, Instructed on discharge instructions, follow up and referral plans. Demonstrated understanding of instructions, follow-up care. 03:46 Patient left the ED. Signatures: Dispatcher [employer] Ruth Jin, RN Claude Akers MD MD cha Loubet, Lynsea, RN RN ll3 Corrections: (The following items were deleted from the chart) 01:18 01:15 Visitor restriction implemented due to in-person visitations may lead to the transmission of an infectious agent. Restricted visitation is valid for not more than 5 days unless renewed by the attending provider. see triage assessment kl 02:07 01:32 PROBNP+C.LAB.BRZ drawn and sent. EDVT
--- NOTE | 2022-09-27 03:11 | EDPHYS ---
Physician Documentation [facility] Name: Nelson Murillo Age: 77 yrs Sex: Male : 1945 Arrival Date: 09/27/2022 Time: 00:59 Bed 3 Private MD: ED Physician Claude Turner HPI: 09/27 01:58 This 77 yrs old Male presents to ER via EMS with complaints of ams and dariel dementia. 01:58 The patient presents with confusion, trouble concentrating. Onset: The symptoms/episode dariel began/occurred just prior to arrival. Possible causes: CVA or TIA, low blood sugar, sepsis. Associated signs and symptoms: Pertinent positives: confusion. Current symptoms: In the emergency department the patient's symptoms have improved, moderately, is more alert. Patient's baseline: Neuro: alert and fully oriented. The patient has experienced similar episodes in the past, multiple times. Historical: - Allergies: 01:01 Aspirin; kl 01:01 Ativan; kl 01:01 blood thinners; Can't take any blood thinners due to previous brain bleed; kl - Home Meds: 01:01 atorvastatin 80mg daily [Active]; calcium 600 +D3 twice a day [Active]; Dilantin 200mg kl Oral cap twice a day [Active]; Dilantin 30 mg Oral cap daily [Active]; ezetimibe 10 mg Oral nightly [Active]; Feosol 325 mg (65 mg iron) Oral tab daily [Active]; Fesol 65mg every Mon/wed/fri [Active]; glucosamine sulfate 1500 every day Oral [Active]; losartan 50mg daily [Active]; metoprolol tartrate 25 mg Oral tab 1 tab 2 times per day [Active]; Metoprolol Tartrate Oral 25 mg twice a day [Active]; Mirtazapine Oral 7.5 mg nightly [Active]; omeprazole 40 mg Oral cpDR once daily [Active]; Omeprazole Oral 40 mg daily [Active]; - PMHx: 01:01 Brain Bleeds x4; CVA; Dementia; GERD; High Cholesterol; Hypertension; Seizures; 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 - Social history:: Smoking status: Patient reports the use of cigarette tobacco products, former. - Family history:: not pertinent. ROS: 01:58 Constitutional: Negative for fever, chills, and weight loss, Eyes: Negative for injury, dariel pain, redness, and discharge, ENT: Negative for injury, pain, and discharge, Neck: Negative for injury, pain, and swelling, Cardiovascular: Negative for chest pain, palpitations, and edema, Respiratory: Negative for shortness of breath, cough, wheezing, and pleuritic chest pain, Abdomen/GI: Negative for abdominal pain, nausea, vomiting, diarrhea, and constipation, Back: Negative for injury and pain, : Negative for injury, bleeding, discharge, and swelling, MS/Extremity: Negative for injury and deformity, Skin: Negative for injury, rash, and discoloration, Neuro: Negative for headache, weakness, numbness, tingling, and seizure, Psych: Negative for depression, anxiety, suicide ideation, homicidal ideation, and hallucinations, Allergy/Immunology: Negative for hives, rash, and allergies, Endocrine: Negative for neck swelling, polydipsia, polyuria, polyphagia, and marked weight changes, Hematologic/Lymphatic: Negative for swollen nodes, abnormal bleeding, and unusual bruising. Exam: 01:58 Constitutional: This is a well developed, well nourished patient who is awake, alert, dariel and in no acute distress. Head/Face: Normocephalic, atraumatic. Eyes: Pupils equal round and reactive to light, extra-ocular motions intact. Lids and lashes normal. Conjunctiva and sclera are non-icteric and not injected. Cornea within normal limits. Periorbital areas with no swelling, redness, or edema. ENT: Nares patent. No nasal discharge, no septal abnormalities noted. Tympanic membranes are normal and external auditory canals are clear. Oropharynx with no redness, swelling, or masses, exudates, or evidence of obstruction, uvula midline. Mucous membranes moist. Neck: Trachea midline, no thyromegaly or masses palpated, and no cervical lymphadenopathy. Supple, full range of motion without nuchal rigidity, or vertebral point tenderness. No Meningismus. Chest/axilla: Normal chest wall appearance and motion. Nontender with no deformity. No lesions are appreciated. Cardiovascular: Regular rate and rhythm with a normal S1 and S2. No gallops, murmurs, or rubs. Normal PMI, no JVD. No pulse deficits. Respiratory: Lungs have equal breath sounds bilaterally, clear to auscultation and percussion. No rales, rhonchi or wheezes noted. No increased work of breathing, no retractions or nasal flaring. Abdomen/GI: Soft, non-tender, with normal bowel sounds. No distension or tympany. No guarding or rebound. No evidence of tenderness throughout. Back: No spinal tenderness. No costovertebral tenderness. Full range of motion. Male : Normal genitalia with no discharge or lesions. Skin: Warm, dry with normal turgor. Normal color with no rashes, no lesions, and no evidence of cellulitis. MS/ Extremity: Pulses equal, no cyanosis. Neurovascular intact. Full, normal range of motion. Neuro: Awake and alert, GCS 15, oriented to person, place, time, and situation. Cranial nerves II-XII grossly intact. Motor strength 5/5 in all extremities. Sensory grossly intact. Cerebellar exam normal. Normal gait. Psych: Awake, alert, with orientation to person, place and time. Behavior, mood, and affect are within normal limits. 01:58 ECG was reviewed by the Attending Physician. Vital Signs: 00:59 BP 151 / 88; Pulse 76; Resp 18; Temp 98.5(O); Pulse Ox 98% on R/A; kl 02:28 BP 112 / 60; Pulse 63; Resp 12; Pulse Ox 99% on R/A; ll3 02:57 BP 120 / 79; Pulse 63; Resp 15; Pulse Ox 98% on R/A; kl 03:32 BP 134 / 62; Pulse 78; Resp 18; Pulse Ox 99% on R/A; kl MDM: 01:24 Patient medically screened. dariel 02:01 Differential Diagnosis: CVA, electrolyte abnormality, hypoglycemia, intracranial bleed, dariel seizure, sepsis, TIA, UTI, volume depletion. Data reviewed: vital signs, nurses notes, EMS record, lab test result(s), EKG, radiologic studies, CT scan, plain films. Consideration of Admission/Observation Patient was admitted/placed on observation. Escalation of care including admission/observation considered. Test considered but Not performed: MRI: mri brain. Care significantly affected by the following chronic conditions: Hypertension, cva, bleeds. 09/27 01:06 Order name: Basic Metabolic Panel; Complete Time: 02:53 tw5 09/27 01:06 Order name: CBC with Diff; Complete Time: 02:09 tw5 09/27 01:06 Order name: Hepatic Function; Complete Time: 02:53 tw5 09/27 01:06 Order name: High Sensitivity Troponin; Complete Time: 02:53 tw5 09/27 01:06 Order name: Magnesium; Complete Time: 02:53 tw5 09/27 01:06 Order name: Protime (+inr); Complete Time: 02:09 tw09/27 01:06 Order name: Ptt, Activated; Complete Time: 02:09 tw09/27 01:06 Order name: SARS RAPID; Complete Time: 02:53 tw5 09/27 01:27 Order name: Dilantin; Complete Time: 02:53 dariel 09/27 02:02 Order name: Flu; Complete Time: 02:53 ll3 09/27 01:06 Order name: Stroke CXR 1 View 09/27 01:06 Order name: EKG; Complete Time: 01:07 tw09/27 01:06 Order name: Accucheck; Complete Time: 01:19 09/27 01:06 Order name: Cardiac monitoring; Complete Time: 01:14 tw09/27 01:06 Order name: EKG - Nurse/Tech; Complete Time: 01:14 tw09/27 01:06 Order name: IV Saline Lock; Complete Time: 01:33 09/27 01:06 Order name: Labs collected and sent; Complete Time: 01:33 09/27 01:06 Order name: NPO; Complete Time: 01:20 tw09/27 01:06 Order name: O2 Per Protocol; Complete Time: 01:20 09/27 01:06 Order name: O2 Sat Monitoring; Complete Time: 01:20 tw09/27 01:06 Order name: Stroke Swallow Screen; Complete Time: 02:22 tw09/27 01:18 Order name: Head Brain Wo Cont EDMS 09/27 02:07 Order name: NT PRO-BNP; Complete Time: 02:53 EDMS 09/27 03:11 Order name: Urine Dipstick-Ancillary EDMS EC:58 Rate is 70 beats/min. Rhythm is regular. QRS Viola is Normal. OH interval is normal. QRS dariel interval is normal. QT interval is normal. No Q waves. T waves are Normal. No ST changes noted. Clinical impression: Normal ECG, 1st degree heart block, and No evidence of ischemia. Interpreted by me. Reviewed by me. Administered Medications: 02:07 Drug: NS 0.9% 1000 ml Route: IV; Rate: 1 bolus; Site: left antecubital; ll3 Point of Care Testing: Blood Glucose: 01:19 Blood Glucose: 110 mg/dL; ll3 Ranges: Critical Glucose Levels:Adult <50 mg/dl or >400 mg/dl <40 mg/dl or >180 mg/dl Disposition Summary: 09/27/22 03:10 Discharge Ordered Location: Home dariel Problem: new dariel Symptoms: have improved dariel Condition: Stable dariel Diagnosis - Dementia in other diseases classified elsewhere without behavioral disturbance dariel - Anemia, unspecified dariel Followup: dariel - With: Private Physician - When: 2 - 3 days - Reason: Recheck today's complaints, Continuance of care, Re-evaluation by your physician Followup: dariel - With: - When: 2 - 3 days - Reason: Recheck today's complaints, Re-evaluation by your physician Discharge Instructions: - Discharge Summary Sheet dariel - Anemia dariel - Dementia dariel - Lewy Body Dementia dariel - Dementia, [id number] dariel Forms: - Medication Reconciliation Form dariel - Thank You Letter dariel - Antibiotic Education dariel - Prescription Opioid Use dariel Signatures: Dispatcher [employer] EDRuth García RN RN kl Anderson, Corey, MD MD cha Wood, Tiffany tw5 Ciara Jin RN RN ll3 Corrections: (The following items were deleted from the chart) 01:18 01:07 CT-STROKE BRAIN W/O CONTRAST+CT.RAD.BRZ ordered. EDMS EDMS 02:07 01:27 PROBNP+C.LAB.BRZ ordered. EDMS EDMS 02:22 02:11 COVID-19/FLU A+B+MOL.LAB.BRZ ordered. EDMS EDMS
[2022-09-27 04:25] VITALS: TEMP 98.5
[2022-09-27 04:40] VITALS: BP 120/79; O2SAT 98
--- NOTE | 2022-09-27 07:54 | EKG ---
Test Date: 2022-09-27 Test Time: 01:13:00 Stitcher Set Up Operator Automatic: RICHY MEASUREMENT RESULTS: Intervals: Rate: 70 NE: 244 QRSD: 88 QT: 388 QTc: 419 [place]: P: 65 NE: 244 QRS: 57 T: 70 INTERPRETIVE STATEMENTS: Sinus rhythm with 1st degree AV block Otherwise normal ECG Compared to ECG 09/26/2022 11:10:41 Sinus bradycardia no longer present Electronically Signed On 09-27-22 07:53:45 TEACHER AIDE by Edgar Mccormick
--- NOTE | 2022-09-27 15:48 | RAD REPORT ---
EXAM DESCRIPTION: RAD - Chest Single View - 09/27/2022 1:18 am CLINICAL HISTORY: PAIN TECHNIQUE: Frontal view of the chest. COMPARISON: No relevant prior studies available. FINDINGS: Lungs: Unremarkable. No consolidation. Pleural space: Calcified pleural plaques bilaterally. No pneumothorax. Heart: Unremarkable. No cardiomegaly. Mediastinum: Unremarkable. Bones/joints: Thoracic dextroscoliosis and multilevel spondylosis. Right shoulder arthroplasty. Vasculature: Thoracic aortic atherosclerosis. IMPRESSION: No acute disease. Electronically signed by: Sarai Gould MD 09/27/2022 1:32 AM WREATH MAKER Due to temporary technical issues with the PACS/Fluency reporting system, reports are being signed by the in house radiologists without review as a courtesy to insure prompt reporting. The interpreting radiologist is fully responsible for the content of the report.
--- NOTE | 2022-09-27 16:00 | RAD REPORT ---
EXAM DESCRIPTION: CT - Head Brain Wo Cont - 09/27/2022 7:07 am CLINICAL HISTORY: The patient is 77 years old and is Male; STROKE ALERT TECHNIQUE: Axial computed tomography images of the head/brain without intravenous contrast. Sagitt al and coronal reformatted images were created and reviewed. This CT exam was performed using one o r more of the following dose reduction techniques: automated exposure control, adjustment of the mA and/or kV according to patient size, and/or use of iterative reconstruction technique. COMPARISON: September 26, 2022 FINDINGS: Brain: Mild cerebral atrophy. No hemorrhage. No significant white matter disease. Ventricles: Unremarkable. No ventriculomegaly. Bones/joints: Postsurgical changes related to a left frontal craniotomy. No acute fracture. Soft tissues: Unremarkable. Sinuses: Unremarkable as visualized. Mastoid air cells: Unremarkable as visualized. No mastoid effusion. IMPRESSION: No acute intracranial abnormality. Electronically signed by: Vadim Flaherty MD 09/27/2022 1:52 AM DRIVER ENGINEER Due to temporary technical issues with the PACS/Fluency reporting system, reports are being signed by the in house radiologists without review as a courtesy to insure prompt reporting. The interpreting radiologist is fully responsible for the content of the report.
== END 2022-09-27 03:46 | disposition home or self-care (01) ==
LOC: ER 00:55
DX: F03.90 Unspecified dementia, unspecified severity, without behavioral disturbance, psychotic disturbance, mood disturbance, and anxiety (principal); D64.9 Anemia, unspecified; I10 Essential (primary) hypertension; Z86.73 Personal history of transient ischemic attack (TIA), and cerebral infarction without residual deficits; Z20.822 Contact with and (suspected) exposure to COVID-19; Z88.6 Allergy status to analgesic agent; Z88.8 Allergy status to other drugs, medicaments and biological substances
CPT/HCPCS: 93005; 85025; 80048; 36415; 83735; 85610; 80076; 85730; 80185; 81003; 84484; 83880; 87804 ×2; 70450; 71045; 99284; 87811; J7030

== ENCOUNTER 2023-08-05 11:54 | Inpatient (IN) | payer OTHER ==
[2023-08-05] MEDS ORDERED: NA CHLORIDE 0.9% 500 ML ONE (12:13)
[2023-08-05] MEDS ORDERED: NA CHLORIDE 0.9% 1,000 ML ONE (12:13)
[2023-08-05 12:34] LABS: Absolute Lymphocytes (CBC) 0.5 K/uL (0.7-4.9); Hematocrit 38.1 % (39.6-49.0); Lymphocytes % 14.8 % (15.3-44.8); MCV 92.6 fL (80-100); MPV 7.1 fL (7.6-11.3); Platelets 110 thou/uL (152-406); RBC Red Blood Cell Count 4.11 M/uL (4.33-5.43)
[2023-08-05 12:39] LABS: Protime INR 1.09
--- NOTE | 2023-08-05 12:59 | RAD REPORT ---
EXAM DESCRIPTION: RAD - Chest Single View - 08/05/2023 12:52 pm CLINICAL HISTORY: PAIN Chest pain. COMPARISON: Chest Single View dated 09/27/2022; Chest Single View dated 09/26/2022; Chest Pa And Lat (2 Views) dated 07/25/2022; Chest Single View dated 12/03/2021 FINDINGS: Portable technique limits examination quality. Calcified pleural plaques identified bilaterally. Mild interstitial pulmonary edema. The heart is mil dly enlarged with a tortuous thoracic aorta. Proximal right humerus hardware.A displaced fracture is not evident.
[2023-08-05 13:00] LABS: Albumin 3.5 g/dL (3.4-5.0); Bilirubin Direct 0.1 mg/dL (0-0.2); Bilirubin Indirect, Calculated 0.3 mg/dL (0.2-0.8); Bilirubin Total 0.4 mg/dL (0.2-1.0); Magnesium 2.1 mg/dL (1.6-2.4); Protein, Total 7.3 g/dL (6.4-8.2); Troponin High Sensitivity 6.5 pg/mL (<58.9)
[2023-08-05] MEDS ORDERED: ONDANSETRON 4 MG/2 ML VIAL ONE ×2 (13:28→15:03)
[2023-08-05] MEDS ORDERED: HALOPERIDOL LACT 5 MG/ML INJ ONE (13:28)
--- NOTE | 2023-08-05 14:38 | RAD REPORT ---
EXAM DESCRIPTION: CT - Head C Spine Cap Sheron [place] - 08/05/2023 1:51 pm CLINICAL HISTORY: Trauma, head and neck injury. Chest, abdomen and pelvis pain. TRAUMA COMPARISON: No comparisons TECHNIQUE: CT head without contrast. CT cervical spine without contrast with coronal and sagittal reformatted images. CT chest, abdomen and pelvis with IV contrast (approximately 100 mL nonionic IV contrast) with de paz l and sagittal reformatted images of the spine. All CT scans are performed using dose optimization technique as appropriate and may include automated exposure control or mA/KV adjustment according to patient size. FINDINGS: CT HEAD WITHOUT CONTRAST: No intracranial hemorrhage, hydrocephalus or extra-axial fluid collection. No areas of brain edema o r midline shift. Mild paranasal sinus mucosal thickening. Mild fluid noted in the left maxillary evidence of fracture left maxillary posterolateral wall. Evidence of prior left anterior craniotomy. CT CERVICAL SPINE WITHOUT CONTRAST: No fracture or subluxation. Mild lower cervical spondylosis. The prevertebral soft tissues are normal in thickness. CT CHEST, ABDOMEN, PELVIS WITH CONTRAST: The lungs are clear.Several left-sided rib fractures are present, remain bilateral fifth, sixth seven th, eighth ribs. In addition, the posterior aspect of the left eighth rib is fractured. Small amount of left pleural fluid. Calcified pleural plaques are seen. No pneumothorax. No evidence of intra-abdominal visceral injury, free fluid or free air. No concerning pelvic findings. Moderate scoliosis of the thoracolumbar spine. IMPRESSION: Multiple left-sided rib fractures are present as detailed without pneumothorax. There is a small amount of left pleural fluid. Fracture of the left maxillary antrum with a small amount of fluid present, age indeterminate.
[2023-08-05] MEDS ORDERED: MORPHINE 2 MG/ML SYR ONE ×2 (15:03→15:43)
--- NOTE | 2023-08-05 15:23 | ER ---
Nurse's Notes [facility] Name: Nelson Murillo Age: 78 yrs Sex: Male : 1945 Arrival Date: 08/05/2023 Time: 11:54 Bed 14 Private MD: Diagnosis: Fall on same level, unspecified;Multiple fractures of ribs, left side;Dementia in other diseases classified elsewhere without behavioral disturbance Presentation: 08/05 11:55 Chief complaint: EMS states: Unwitnessed fall from standing, pt c/o sever left sided hb chest wall pain /. Fentanyl 100 mcg and Zofran 4 mg administered to 20g LAC. Hx of severe dementia and head bleed x 5. Coronavirus screen: At this time, the client does not indicate any symptoms associated with coronavirus-19. Ebola Screen: No symptoms or risks identified at this time. Initial Sepsis Screen: Does the patient meet any 2 criteria? No. Patient's initial sepsis screen is negative. Does the patient have a suspected source of infection? No. Patient's initial sepsis screen is negative. Risk Assessment: Do you want to hurt yourself or someone else? Patient reports no desire to harm self or others. Onset of symptoms was August 05, 2023. 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 - Social history:: Smoking status: unknown. - Family history:: not pertinent. Screenin:06 [facility] ED Fall Risk Assessment (Adult) History of falling in the last 3 months, tl4 including since admission Yes- fall prone (multiple falls) (3 pts) Confusion or Disorientation Yes (5 pts) Intoxicated or Sedated No (0 pts) Impaired Gait Yes (1 pt) Mobility Assist Device Used Yes (1 pt) Altered Elimination No (0 pt) Score/Fall Risk Level 3 or more points = High Risk Oriented to surroundings, Maintained a safe environment, Provided non-skid footwear, Hourly rounding (assess needs \T\ fall precautionary measures) done. Abuse screen: Denies threats or abuse. Denies injuries from another. Nutritional screening: No deficits noted. Tuberculosis screening: No symptoms or risk factors identified. Assessment: 12:20 General: Appears uncomfortable, Behavior is calm, cooperative. Pain: Complains of pain tl4 in head, chest, abdomen and left leg. Neuro: Level of Consciousness is awake, alert, obeys commands, Oriented to person, place, situation, pt is at baseline mental status. Pupils are PERRLA. Cardiovascular: No deficits noted. Denies chest pain, shortness of breath. Respiratory: No deficits noted. GI: No deficits noted. No signs and/or symptoms were reported involving the gastrointestinal system. : No deficits noted. No signs and/or symptoms were reported regarding the genitourinary system. Vital Signs: 11:55 BP 182 / 101; Pulse 60; Resp 16; Temp 98.3; Pulse Ox 100% ; Weight 90.72 kg; Height 5 hb ft. 9 in. ; Pain 8/10; 12:30 BP 157 / 89; Pulse 58; Resp 17; Pulse Ox 99% on R/A; tl4 13:01 BP 154 / 93; Pulse 61; Resp 17; Pulse Ox 99% on R/A; tl4 13:30 BP 154 / 88; Pulse 69; Resp 15; Pulse Ox 99% on R/A; tl4 14:00 BP 154 / 91; Pulse 64; Resp 18; Pulse Ox 96% on R/A; tl4 14:30 BP 154 / 91; Pulse 64; Resp 18; Pulse Ox 96% on R/A; tl4 15:00 BP 152 / 91; Pulse 72; Resp 17; Pulse Ox 100% on R/A; tl4 15:30 BP 151 / 92; Pulse 70; Resp 16; Pulse Ox 98% on R/A; tl4 16:07 BP 132 / 103; Pulse 78; Resp 17; Pulse Ox 99% on R/A; tl4 16:41 BP 112 / 78; Pulse 79; Resp 18; Pulse Ox 96% on R/A; Pain 8/10; tl4 11:55 Body Mass Index 29.53 (90.72 kg, 175.26 cm) hb 11:55 Pain Scale: Adult hb 16:41 Pain Scale: Adult tl4 [place] Coma Score: 15:11 Eye Response: spontaneous(4). Motor Response: obeys commands(6). Verbal Response: dariel oriented(5). Total: 15. NIH Stroke Scale Scores: 15:11 NIHSS Score: 0 dariel ED Course: 11:56 Patient arrived in ED. dariel 11:56 Claude Turner MD is Attending Physician. dariel 12:03 Triage completed. hb 12:03 Arm band placed on. hb 12:07 Tate Curran is Primary Nurse. tl4 12:26 Lipase Sent. tl4 12:26 Basic Metabolic Panel Sent. tl4 12:26 CBC with Diff Sent. tl4 12:26 LFT's Sent. tl4 12:26 Magnesium Sent. tl4 12:26 Troponin HS Sent. tl4 12:26 PT-INR Sent. tl4 12:26 NT PRO-BNP Sent. tl4 12:54 XRAY Chest (1 view) In Process Unspecified. EDMS 13:52 CT Traumagram (Head C Spine CAP W Con) In Process Unspecified. EDMS 15:22 Cliff Alvarez MD is Hospitalizing Provider. dariel 15:29 INCENTIVE SPIROMETRY Sent. tl4 16:06 Patient has correct armband on for positive identification. Placed in gown. Bed in low tl4 position. Call light in reach. Side rails up X2. Adult w/ patient. Provided Education on: ED process. 16:06 No provider procedures requiring assistance completed. Maintain EMS IV. Dressing tl4 intact. Good blood return noted. Site clean \T\ dry. Gauge \T\ site: 18g left AC. 16:42 Patient admitted, IV remains in place. tl4 Administered Medications: 12:25 Drug: NS 0.9% IV 500 ml IV at bolus once Route: IV; Rate: bolus; Site: left tl4 antecubital; Delivery: Primary tubing; 13:00 Follow up: Response: No adverse reaction; IV Status: Completed infusion; IV Intake: tl4 500ml 13:01 Drug: NS 0.9% IV 1000 ml IV at 125 ml/hr continuous Route: IV; Rate: 125 ml/hr; Site: tl4 left antecubital; Delivery: Dial-a-flow; 16:43 Follow up: Response: No adverse reaction; IV Status: Infusion continued tl4 13:32 Drug: Ondansetron IVP 4 mg IVP once; over 2 minutes Route: IVP; Site: left antecubital; hb 15:57 Follow up: Response: No adverse reaction tl4 13:32 Drug: Haloperidol IVP 2.5 mg/50 mL 2.5 mg IVP once; Place patient on a draw end hand hb Route: IVP; Site: left antecubital; 15:57 Follow up: Response: No adverse reaction tl4 15:07 Drug: Ondansetron IVP 4 mg IVP once; over 2 minutes Route: IVP; Infused Over: 2 mins; tl4 Site: left antecubital; 15:57 Follow up: Response: Pain is decreased tl4 15:08 Drug: morphine IVP or IV 2 mg IVP once over 4 mins Route: IVP; Infused Over: 4 mins; tl4 Site: left antecubital; 15:57 Follow up: Response: Pain is decreased tl4 15:56 Drug: morphine IVP or IV 2 mg IVP once over 4 mins Route: IVP; Infused Over: 4 mins; tl4 Site: left antecubital; 16:09 Follow up: Response: Pain is decreased tl4 15:56 Drug: Ipratropium Inhalation Aerosol 0.5 mg Inhalation once Route: Inhalation; tl4 15:57 Drug: Levalbuterol Inhalation 1.25 mg Inhalation once Route: Inhalation; tl4 Medication: 16:07 VIS not applicable for this client. tl4 Intake: 13:00 IV: 500ml; Total: 500ml. tl4 Outcome: 15:23 Decision to Hospitalize by Provider. dariel 16:42 Admitted to Med/surg accompanied by tech, via stretcher, room 201, Report called to tl4 FERN Miles 16:42 Condition: stable 16:42 Instructed on the need for admit, 16:48 Patient left the ED. tl4 NIH Stroke Scale - NIH Stroke Score Date: 08/05/2023 Time: 15:11 Total Score = 0 10. Dysarthria (speech clarity - read or repeat words) - 0(Normal) 11. Extinction and Inattention (visual/tactile/auditory/spatial/personal) - 0(No abnormality) 1a. Level of Consciousness (LOC) - 0(Alert) 1b. Level of Consciousness (LOC) (Month \T\ Age) - 0(Both) 1c. LOC Commands (Open \T\ Closes Eyes/Field Worker) - 0(Both) 2. Best Gaze (Lateral Gaze Paresis) - 0(Normal) 3. Visual Field Loss - 0(No visual loss) 4. Facial Palsy - 0(Normal) 5a. Left Arm: Motor (10-second hold) - 0(No drift) 5b. Right Arm: Motor (10-second hold) - 0(No drift) 6a. Left Leg: Motor (5-second hold - always test supine) - 0(No drift) 6b. Right Leg: Motor (5-second hold - always test supine) - 0(No drift) 7. Limb Ataxia (finger/nose \T\ heel/horne - test with eyes open) - 0(Absent) 8. Sensory Loss (pinprick arms/legs/face) - 0(Normal) 9. Best Language: Aphasia (description/naming/reading) - 0(No aphasia) Initials: dariel Signatures: Dispatcher [employer] EDMS Claude Turner MD MD cha Baxter, Heather, RN RN Tate Gaines tl4 Corrections: (The following items were deleted from the chart) 16:02 12:47 BP 149 / 94; Pulse 59bpm; Resp 16bpm; Pulse Ox 98% RA; tl4 tl4 16:02 13:01 BP 116 / 95; Pulse 78bpm; Resp 14bpm; Pulse Ox 100% RA; tl4 tl4 16:02 13:30 BP 139 / 87; Pulse 81bpm; Resp 16bpm; Pulse Ox 100% RA; tl4 tl4
--- NOTE | 2023-08-05 15:23 | EDPHYS ---
Physician Documentation [facility] Name: Nelson Murillo Age: 78 yrs Sex: Male : 1945 Arrival Date: 08/05/2023 Time: 11:54 Bed 14 Private MD: ED Physician Claude Turner HPI: 08/05 15:11 This 78 yrs old Male presents to ER via EMS with complaints of FALL TO LEFT dariel CHEST, SP FALL. 15:11 Details of fall: The patient fell from an upright position, while standing. Onset: The dariel symptoms/episode began/occurred just prior to arrival. Associated injuries: The patient sustained injury to the chest, contusion, pain with breathing, pain with movement, tenderness. The patient or guardian reports chest pain that is located primarily in the anterior chest wall, left lateral anterior chest and left lateral posterior chest. The pain does not radiate. Associated signs and symptoms: The patient has no apparent associated signs or symptoms. The chest pain is described as aching, sharp. Modifying factors: The symptoms are alleviated by remaining still, the symptoms are aggravated by breathing, cough, deep breath, movement, palpation of area, twisting torso, walking. Severity of pain: At its worst the pain was moderate in the emergency department the pain is unchanged. 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 - Social history:: Smoking status: unknown. - Family history:: not pertinent. ROS: 15:11 Constitutional: Negative for fever, chills, and weight loss, Eyes: Negative for injury, dariel pain, redness, and discharge, ENT: Negative for injury, pain, and discharge, Neck: Negative for injury, pain, and swelling, Respiratory: Negative for shortness of breath, cough, wheezing, and pleuritic chest pain, Abdomen/GI: Negative for abdominal pain, nausea, vomiting, diarrhea, and constipation, Back: Negative for injury and pain, : Negative for injury, bleeding, discharge, and swelling, MS/Extremity: Negative for injury and deformity, Skin: Negative for injury, rash, and discoloration, Neuro: Negative for headache, weakness, numbness, tingling, and seizure, Psych: Negative for depression, anxiety, suicide ideation, homicidal ideation, and hallucinations, Allergy/Immunology: Negative for hives, rash, and allergies, Endocrine: Negative for neck swelling, polydipsia, polyuria, polyphagia, and marked weight changes, Hematologic/Lymphatic: Negative for swollen nodes, abnormal bleeding, and unusual bruising, 15:11 Cardiovascular: Positive for chest pain, of the left lateral posterior chest and left lateral anterior chest, Exam: 15:11 Constitutional: This is a well developed, well nourished patient who is awake, alert, dariel and in no acute distress. Head/Face: Normocephalic, atraumatic. Eyes: Pupils equal round and reactive to light, extra-ocular motions intact. Lids and lashes normal. Conjunctiva and sclera are non-icteric and not injected. Cornea within normal limits. Periorbital areas with no swelling, redness, or edema. ENT: Nares patent. No nasal discharge, no septal abnormalities noted. Tympanic membranes are normal and external auditory canals are clear. Oropharynx with no redness, swelling, or masses, exudates, or evidence of obstruction, uvula midline. Mucous membranes moist. Neck: Trachea midline, no thyromegaly or masses palpated, and no cervical lymphadenopathy. Supple, full range of motion without nuchal rigidity, or vertebral point tenderness. No Meningismus. Chest/axilla: Normal chest wall appearance and motion. Nontender with no deformity. No lesions are appreciated. Cardiovascular: Regular rate and rhythm with a normal S1 and S2. No gallops, murmurs, or rubs. Normal PMI, no JVD. No pulse deficits. Abdomen/GI: Soft, non-tender, with normal bowel sounds. No distension or tympany. No guarding or rebound. No evidence of tenderness throughout. Back: No spinal tenderness. No costovertebral tenderness. Full range of motion. Male : Normal genitalia with no discharge or lesions. Skin: Warm, dry with normal turgor. Normal color with no rashes, no lesions, and no evidence of cellulitis. MS/ Extremity: Pulses equal, no cyanosis. Neurovascular intact. Full, normal range of motion. Psych: Awake, alert, with orientation to person, place and time. Behavior, mood, and affect are within normal limits. 15:11 Chest/axilla: Inspection: no acute changes, Palpation: crepitus, is not appreciated, tenderness, that is moderate, of the left lateral anterior chest and left lateral posterior chest, Axilla: are normal, Lymph nodes: lymphadenopathy is not appreciated, 15:11 ECG was reviewed by the Attending Physician. Vital Signs: 11:55 BP 182 / 101; Pulse 60; Resp 16; Temp 98.3; Pulse Ox 100% ; Weight 90.72 kg; Height 5 hb ft. 9 in. ; Pain 8/10; 12:30 BP 157 / 89; Pulse 58; Resp 17; Pulse Ox 99% on R/A; tl4 13:01 BP 154 / 93; Pulse 61; Resp 17; Pulse Ox 99% on R/A; tl4 13:30 BP 154 / 88; Pulse 69; Resp 15; Pulse Ox 99% on R/A; tl4 14:00 BP 154 / 91; Pulse 64; Resp 18; Pulse Ox 96% on R/A; tl4 14:30 BP 154 / 91; Pulse 64; Resp 18; Pulse Ox 96% on R/A; tl4 15:00 BP 152 / 91; Pulse 72; Resp 17; Pulse Ox 100% on R/A; tl4 15:30 BP 151 / 92; Pulse 70; Resp 16; Pulse Ox 98% on R/A; tl4 16:07 BP 132 / 103; Pulse 78; Resp 17; Pulse Ox 99% on R/A; tl4 16:41 BP 112 / 78; Pulse 79; Resp 18; Pulse Ox 96% on R/A; Pain 8/10; tl4 11:55 Body Mass Index 29.53 (90.72 kg, 175.26 cm) hb 11:55 Pain Scale: Adult hb 16:41 Pain Scale: Adult tl4 NIH Stroke Scale Scores: 15:11 NIHSS Score: 0 dariel [place] Coma Score: 15:11 Eye Response: spontaneous(4). Motor Response: obeys commands(6). Verbal Response: dariel oriented(5). Total: 15. MDM: 11:56 Patient medically screened. dariel 12:00 Patient medically screened. [facility] 08/05 11:59 Order name: Basic Metabolic Panel; Complete Time: 13:16 [facility] 08/05 11:59 Order name: CBC with Diff; Complete Time: 13:16 [facility] 08/05 11:59 Order name: LFT's; Complete Time: 13:16 [facility] 08/05 11:59 Order name: Magnesium; Complete Time: 13:16 [facility] 08/05 11:59 Order name: NT PRO-BNP; Complete Time: 13:16 [facility] 08/05 11:59 Order name: PT-INR; Complete Time: 13:16 [facility] 08/05 11:59 Order name: Troponin HS; Complete Time: 13:16 [facility] 08/05 11:59 Order name: Lipase; Complete Time: 13:16 [facility] 08/05 11:59 Order name: Urinalysis w/ reflexes [facility] 08/05 11:59 Order name: CPK; Complete Time: 13:16 [facility] 08/05 11:59 Order name: XRAY Chest (1 view); Complete Time: 13:16 [facility] 08/05 11:59 Order name: CT Traumagram (Head C Spine CAP W Con) [facility] 08/05 15:02 Order name: INCENTIVE SPIROMETRY [facility] 08/05 11:59 Order name: EKG; Complete Time: 11:59 [facility] 08/05 15:30 Order name: CONS Physician Consult EDPR 08/05 11:59 Order name: Cardiac monitoring; Complete Time: 12:08 [facility] 08/05 11:59 Order name: EKG - Nurse/Tech; Complete Time: 13:01 [facility] 08/05 11:59 Order name: IV Saline Lock; Complete Time: 12:08 [facility] 08/05 11:59 Order name: Labs collected and sent; Complete Time: 12:26 [facility] 08/05 11:59 Order name: O2 Per Protocol; Complete Time: 12:08 [facility] 08/05 11:59 Order name: O2 Sat Monitoring; Complete Time: 12:08 [facility] EC:11 Rate is 60 beats/min. Rhythm is regular. QRS [place] is Normal. [place] interval is normal. QRS dariel interval is normal. QT interval is normal. No Q waves. T waves are Normal. No ST changes noted. Clinical impression: Normal ECG and No evidence of ischemia. Interpreted by me. Reviewed by me. Administered Medications: 12:25 Drug: NS 0.9% IV 500 ml IV at bolus once Route: IV; Rate: bolus; Site: left tl4 antecubital; Delivery: Primary tubing; 13:00 Follow up: Response: No adverse reaction; IV Status: Completed infusion; IV Intake: tl4 500ml 13:01 Drug: NS 0.9% IV 1000 ml IV at 125 ml/hr continuous Route: IV; Rate: 125 ml/hr; Site: tl4 left antecubital; Delivery: Dial-a-flow; 16:43 Follow up: Response: No adverse reaction; IV Status: Infusion continued tl4 13:32 Drug: Ondansetron IVP 4 mg IVP once; over 2 minutes Route: IVP; Site: left antecubital; hb 15:57 Follow up: Response: No adverse reaction tl4 13:32 Drug: Haloperidol IVP 2.5 mg/50 mL 2.5 mg IVP once; Place patient on a juvenile justice officer hb Route: IVP; Site: left antecubital; 15:57 Follow up: Response: No adverse reaction tl4 15:07 Drug: Ondansetron IVP 4 mg IVP once; over 2 minutes Route: IVP; Infused Over: 2 mins; tl4 Site: left antecubital; 15:57 Follow up: Response: Pain is decreased tl4 15:08 Drug: morphine IVP or IV 2 mg IVP once over 4 mins Route: IVP; Infused Over: 4 mins; tl4 Site: left antecubital; 15:57 Follow up: Response: Pain is decreased tl4 15:56 Drug: morphine IVP or IV 2 mg IVP once over 4 mins Route: IVP; Infused Over: 4 mins; tl4 Site: left antecubital; 16:09 Follow up: Response: Pain is decreased tl4 15:56 Drug: Ipratropium Inhalation Aerosol 0.5 mg Inhalation once Route: Inhalation; tl4 15:57 Drug: Levalbuterol Inhalation 1.25 mg Inhalation once Route: Inhalation; tl4 Disposition Summary: 08/05/23 15:23 Hospitalization Ordered Notes: Hospitalization Status: Inpatient Admission dariel Provider: Cliff Alvarez cha [facility] dariel Condition: Fair dariel Problem: new dariel Symptoms: have improved dariel Bed/Room Type: Standard dariel Room Assignment: 201(08/05/23 15:32) bd Diagnosis - Fall on same level, unspecified dariel - Multiple fractures of ribs, left side dariel - Dementia in other diseases classified elsewhere without behavioral disturbance dariel Forms: - Medication Reconciliation Form dariel - SBAR form dariel - Leadership Thank You Letter [facility] NIH Stroke Scale - NIH Stroke Score Date: 08/05/2023 Time: 15:11 Total Score = 0 10. Dysarthria (speech clarity - read or repeat words) - 0(Normal) 11. Extinction and Inattention (visual/tactile/auditory/spatial/personal) - 0(No abnormality) 1a. Level of Consciousness (LOC) - 0(Alert) 1b. Level of Consciousness (LOC) (Month \T\ Age) - 0(Both) 1c. LOC Commands (Open \T\ Closes Eyes/Director Of State) - 0(Both) 2. Best Gaze (Lateral Gaze Paresis) - 0(Normal) 3. Visual Field Loss - 0(No visual loss) 4. Facial Palsy - 0(Normal) 5a. Left Arm: Motor (10-second hold) - 0(No drift) 5b. Right Arm: Motor (10-second hold) - 0(No drift) 6a. Left Leg: Motor (5-second hold - always test supine) - 0(No drift) 6b. Right Leg: Motor (5-second hold - always test supine) - 0(No drift) 7. Limb Ataxia (finger/nose \T\ heel/horne - test with eyes open) - 0(Absent) 8. Sensory Loss (pinprick arms/legs/face) - 0(Normal) 9. Best Language: Aphasia (description/naming/reading) - 0(No aphasia) Initials: [facility] Signatures: Dispatcher [employer] EDAishwarya Sanchez Corey, MD MD cha Baxter, Heather, RN RN Tate Gaines4 Corrections: (The following items were deleted from the chart) 15:32 15:23 dariel bd
[2023-08-05 15:29] LABS: Urine Bacteria None Seen /HPF (<20); Urine Bilirubin NEGATIVE (Negative); Urine Blood Trace (Negative); Urine Clarity Clear (Clear); Urine Color Light-Yellow (Yellow); Urine Crystals Unidentified Few /HPF (None Seen); Urine Glucose NEGATIVE (Negative); Urine Mucus Slight /HPF (None Seen); Urine Protein NEGATIVE (Negative); Urine RBC <5 /HPF (None Seen); Urine Urobilinogen Normal (Normal); Urine pH 5.5 (5.0-7.0)
[2023-08-05 15:33] LABS: Specific Gravity > 1.030 (1.005-1.030)
[2023-08-05] MEDS ORDERED: IPRATROPIUM BROM 0.5MG/2.5ML ONE (15:43)
[2023-08-05] MEDS ORDERED: LEVALBUTEROL 1.25 MG/3 ML NEB ONE (15:43)
[2023-08-05] MEDS ORDERED: ACETAMINOPHEN 325 MG TABLET PO PRN (17:03)
[2023-08-05] MEDS ORDERED: ONDANSETRON 4 MG/2 ML VIAL IV PRN (17:03)
[2023-08-05 18:03] VITALS: BMI 29.6
[2023-08-05] MEDS: NA CHLORIDE 0.9% 1,000 ML IV SCH (18:17)
[2023-08-05] MEDS: LEVALBUTEROL 1.25 MG/3 ML NEB NEB SCH (19:10)
[2023-08-05] MEDS: IPRATROPIUM BROM 0.5MG/2.5ML NEB SCH (19:10)
[2023-08-05] MEDS ORDERED: FAMOTIDINE 20 MG/2 ML VIAL IV SCH (21:00)
[2023-08-05] MEDS: HYDROCODONE/APAP 5/325 MG TAB PO SCH (21:55)
--- NOTE | 2023-08-05 23:11 | HP ---
Date of Admission: 08/05/2023 Chief Complaint: Fall and pain. History Of Present Illness: This is a 78-year-old very pleasant male patient who lives at home with his , was in the living room and was in the kitchen and all of a sudden the patient's h eard a loud noise, so she went there in the living room and found the patient lying on the floor in t he living room. The patient believes that he tripped over a furniture in the living room and fell do wn. Ambulance was called and he was brought into the emergency room and after he was evaluated in [facility] ER, he was admitted to the hospital with multiple rib fractures. I saw him this evening and the pa rehan's was with him at bedside. Allergies: TO ATIVAN CAUSING HALLUCINATIONS. Review of Systems: Musculoskeletal: Pain in the rib cage. Respiratory: Some dry cough. All other systems reviewed and negative. Medications: 1.Atorvastatin 80 mg daily. 2.Caltrate plus D 1 tablet daily. 3.Dilantin 30 mg capsules takes 1 capsule daily in morning as well as 100 mg capsule, takes 2 capsul es 2 times a day. 4.Seroquel 25 mg at bedtime. 5.Vitamin B12 1 mg daily. 6.Omeprazole 40 mg daily. 7.Metoprolol 25 mg 2 times a day. 8.Losartan 50 mg daily. 9.Metamucil daily. 10.Ezetimibe 10 mg daily. Past Medical History: Significant for seizure disorder, Lewy body dementia diagnosed in May 2022 , by Dr. Gomez, obstructive sleep apnea, hypertension, mixed hyperlipidemia, gastroesophageal reflu x disease, benign prostatic hypertrophy, high PSA, lumbar spondylosis, pancytopenia, prior history of DVT of leg, osteoporosis. Past Surgical History: Tonsillectomy, appendectomy, inguinal hernia repair, UroLift procedure [facility] er 2021, bursectomy, right shoulder surgery. Family History: Father , had coronary artery disease, myocardial infarction, and lung cancer. M other had coronary artery disease. Brother, hypertension and COPD. Sister, hypertension and obesity . Social History: Prior history of smoking, not at present time. Use of alcohol negative. Physical Examination: Vital Signs: Temperature 99.2, pulse 80, respiratory rate 20, blood pressure 113/75, oxygen saturati on 95%, height 5 feet 8 inches, weight 195 pounds. General: Awake, alert, oriented, not in distress. HEENT: Head atraumatic, normocephalic. Conjunctivae nonerythematous. Sclerae white. Mouth, no thr ush or edema noted. Ears/Nose, no mass, lesion, discharge noted. Neck: Supple. No JVD, lymph nodes, bruit, thyromegaly noted. Lungs: Bilateral good equal air entry. Clear to auscultation. No rhonchi. No rales. Heart: Normal heart sounds, no murmur or gallop. Abdomen: Soft, bowel sounds normal. No guarding, rigidity, tenderness, mass, hepatosplenomegaly, di stention, or bruit noted. Extremities: No leg edema. No calf tenderness. Skin: No rash, ulcer, cellulitis. Lymphatics: No lymph node enlargement in neck, supraclavicular, infraclavicular region. Neuro: No focal neurological deficit. Chest: Unremarkable. External Genitalia: Deferred. Rectal: Deferred. Laboratory Data: White count 3.5, hemoglobin 13.2, platelets 110. Sodium 136, potassium 4, chloride 106, bicarb 30, BUN 15, creatinine 1.05, glucose 103. Liver function test unremarkable. Lipase 40. Urinalysis unremarkable. CAT scan per trauma protocol shows multiple left-sided rib fractures with out pneumothorax. There is a small amount of left pleural fluid, fracture of the left maxillary antr um with small amount of fluid present. Chest x-ray, no acute change. Impression: 1.Multiple left-sided rib fractures. 2.Maxillary antrum fracture. 3.Pancytopenia. 4.Hypertension. 5.Seizure disorder. 6.Mixed hyperlipidemia. 7.Gastroesophageal reflux disease. 8.Osteoporosis. 9.Lewy body dementia. Plan: We will go ahead and admit the patient to hospital for further evaluation and management of th is problem. The patient is appropriate for inpatient and is [facility]. For pain control, we will go ahead and give him hydrocodone 5 mg 2 times a day on scheduled basis and we will go ahead and give morphine for p.r.n. use. SCD was ordered for DVT prophylaxis. Consul tation was requested from surgeon injection molding machine offbearer. Starting tomorrow, we will have Physical therapy, start t o ambulate the patient. Incentive spirometer was ordered and I did teach patient how to use it and i nstructed the patient and his that he should use this incentive spirometer every hour from the t cecilio he wakes up till he goes to bed and every hour he uses the incentive spirometer he should use it 10 times. We will go ahead and give him empiric antibiotic as he is having low-grade fever and he is at high risk from pneumonia problem. Fall precaution was ordered and I will see him tomorrow for fo llowup. For his other chronic health problems, for hyperlipidemia, we will continue his statin thera py. For his seizure disorder, he is on Dilantin. We will continue that. Get a Dilantin order ____ ordered. For hypertension, we will continue his antihypertensive medication per order. Monitor blood pressure if necessary adjust medication. For his gastroesophageal reflux disease, we will con tinue omeprazole per order. LADONNA/MODL Voice ID: [id number]
[2023-08-06] MEDS: IPRATROPIUM BROM 0.5MG/2.5ML NEB SCH ×4 (00:40→19:55)
[2023-08-06] MEDS: LEVALBUTEROL 1.25 MG/3 ML NEB NEB SCH ×4 (00:40→19:55)
[2023-08-06] MEDS: AMPICILLIN/SULBACT 3 GM in NA CHLORIDE 0.9% 100 ML IVPB SCH ×3 (01:36→16:18)
[2023-08-06] MEDS: NA CHLORIDE 0.9% 1,000 ML IV SCH (01:39)
[2023-08-06] MEDS: MORPHINE 2 MG/ML SYR IV PRN ×4 (02:17→23:05)
[2023-08-06 04:20] LABS: Absolute Lymphocytes (CBC) 0.5 K/uL (0.7-4.9); Hematocrit 33.9 % (39.6-49.0); Lymphocytes % 13.3 % (15.3-44.8); MCV 92.2 fL (80-100); MPV 7.5 fL (7.6-11.3); Platelets 114 thou/uL (152-406); RBC Red Blood Cell Count 3.67 M/uL (4.33-5.43)
[2023-08-06 04:34] LABS: Potassium 3.6 mEq/L (3.5-5.1)
[2023-08-06] MEDS: METOPROLOL TAR 25 MG TAB PO SCH ×2 (05:23→18:06)
[2023-08-06] MEDS ORDERED: INFLUENZA VACCINE (for 6+ mo) 0.5 ML DOSE IMVAC ONE (09:00)
[2023-08-06] MEDS ORDERED: HOME MED 1 EA UNK (Omeprazole [Omeprazole] 20 MG Capsule.Dr) PO SCH (09:00)
[2023-08-06] MEDS: PHENYTOIN SODIUM PO SCH (09:00)
[2023-08-06] MEDS: HYDROCODONE/APAP 5/325 MG TAB PO SCH ×2 (09:06→21:07)
[2023-08-06] MEDS: CALCIUM CARB 500MG/VIT D 200 IU TAB PO SCH ×2 (09:07→21:07)
[2023-08-06] MEDS: PHENYTOIN ER 100 MG CAP PO SCH ×2 (09:07→21:07)
[2023-08-06] MEDS: PANTOPRAZOLE 40MG TABLET PO SCH (09:07)
[2023-08-06] MEDS: LOSARTAN POTASSIUM 50 MG TABLET PO SCH (09:07)
--- NOTE | 2023-08-06 11:50 | EKG ---
Test Date: 2023-08-05 Test Time: 12:42:13 Leather Cleaner: TL MEASUREMENT RESULTS: Intervals: Rate: 60 WV: 192 QRSD: 88 QT: 424 QTc: 424 [place]: P: 32 WV: 192 QRS: 32 T: 50 INTERPRETIVE STATEMENTS: Normal sinus rhythm Normal ECG Compared to ECG 09/27/2022 01:13:00 First degree AV block no longer present Electronically Signed On 08-06-23 11:46:59 DEVELOPMENT EDITOR by Edgar Mccormick
[2023-08-06] MEDS ORDERED: CYANOCOBALAMIN 1,000 MCG TAB PO SCH (12:00)
--- NOTE | 2023-08-06 12:53 | P.CNS ---
Date of Consult: 08/05/23 PC: This 78-year-old male sustained a fall at home and presents to the emergency room with severe left-sided chest pain. HPC: Patient was at home, apparently lost his footing, and fell striking the left side of his chest. No loss of consciousness. Was in severe pain however. PSHx: Previous appendectomy cholecystectomy shoulder replacement, subarachnoid hemorrhage PMHx: Patient has dementia Social Hx: Allergic to lorazepam, aspirin, NSAIDs. Cannot take blood thinners due to subarachnoid hemorrhage in the past. Sys R: states patient has been otherwise in good health. O/E: Awake alert uncomfortable at the moment HEENT: NAD Chest: Marked left-sided chest tenderness, but air entry appears equal bilaterally Abd: Negative [place]: Intact Data: CT scan and chest x-ray demonstrates numerous rib fractures on the left side of his chest 5 through 8. No pneumothorax noted. Impression: Patient status post fall at home Plan: Patient has been admitted, receiving analgesics. He has been given an incentive spirometer and encouraged to take deep breaths, his is able to help with this and is very vigilant with that. His pain appears to be controlled. Will repeat a chest x-ray to ensure no pneumo thorax today. Otherwise as the patient has no need for any surgical intervention, we will turn care over to his hospitalist Dr. Alvarez. The patient is more than welcome to follow-up with me if needed.
--- NOTE | 2023-08-06 13:29 | RAD REPORT ---
EXAM DESCRIPTION: RAD - Chest Pa And Lat (2 Views) - 08/06/2023 1:22 pm CLINICAL HISTORY: Fractured ribs, rule out pneumo Chest pain. COMPARISON: Chest Single View dated 08/05/2023; Chest Single View dated 09/27/2022; Chest Single View dated 09/26/2022; Chest Pa And Lat (2 Views) dated 07/25/2022; Head C Spine Cap W Con dated 08/05/2023 FINDINGS: The lungs are emphysematous. Trace pleural fluid is suspected bilaterally. No measurable p neumothorax. The heart is mildly enlarged. Multiple left-sided rib fractures laterally, not significa ntly displaced. . IMPRESSION: No measurable pneumothorax is seen.
[2023-08-06] MEDS ORDERED: EZETIMIBE 10 MG TAB PO SCH (21:00)
[2023-08-06] MEDS ORDERED: ATORVASTATIN 80 MG TAB PO SCH (21:00)
[2023-08-07] MEDS: AMPICILLIN/SULBACT 3 GM in NA CHLORIDE 0.9% 100 ML IVPB SCH ×2 (00:29→08:43)
[2023-08-07] MEDS: IPRATROPIUM BROM 0.5MG/2.5ML NEB SCH ×2 (00:34→07:37)
[2023-08-07] MEDS: LEVALBUTEROL 1.25 MG/3 ML NEB NEB SCH ×2 (00:34→07:37)
[2023-08-07] MEDS: MORPHINE 2 MG/ML SYR IV PRN (03:53)
[2023-08-07] MEDS: METOPROLOL TAR 25 MG TAB PO SCH (05:25)
--- NOTE | 2023-08-07 06:35 | PN ---
Date of Progress Note: 08/06/2023 Subjective: The patient was seen this morning for followup. No new complaints, problems reported by patient. His was with him at bedside. Objective: Vital Signs: Reviewed. HEENT: Unremarkable. Lungs: Clear to auscultation. Heart: Sounds normal. Abdomen: Soft. Bowel sounds normal. No guarding, rigidity, tenderness, distention. Extremities: No leg edema. Laboratory Data: White count 4, hemoglobin 11.8, platelets 114. Sodium 139, potassium 3.6, chloride 107, bicarb 25, BUN 11, creatinine 1.05, glucose 112. Impression: 1.Multiple rib fractures. 2.Rule out pneumonia. 3.Seizure disorder. 4.Lewy body dementia. Plan: We will go ahead and continue SCD for DVT prophylaxis. Dilantin level was ordered. We will f ollow up on it. Discontinue IV fluid. The patient was encouraged to continue to use incentive devorah meter as advised. We will consult Social Service for discharge planning. Continue current pain medi cation. Possible discharge tomorrow depending on condition. LADONNA/MODL Voice ID: [id number] Report ID: [id number]
[2023-08-07 08:24] VITALS: BP 156/77; TEMP 99.2
[2023-08-07] MEDS: CALCIUM CARB 500MG/VIT D 200 IU TAB PO SCH (08:40)
[2023-08-07] MEDS: HYDROCODONE/APAP 5/325 MG TAB PO SCH (08:40)
[2023-08-07] MEDS: LOSARTAN POTASSIUM 50 MG TABLET PO SCH (08:41)
[2023-08-07] MEDS: PANTOPRAZOLE 40MG TABLET PO SCH (08:41)
[2023-08-07] MEDS: PHENYTOIN ER 100 MG CAP PO SCH (08:41)
[2023-08-07] MEDS: PHENYTOIN SODIUM PO SCH (08:48)
[2023-08-07 09:11] VITALS: O2SAT 95
[2023-08-07] MEDS ORDERED: INFLUENZA VACCINE (for 6+ mo) 0.5 ML DOSE IMVAC ONE (09:47)
[2023-08-07] MEDS ORDERED: FERROUS SULFATE 325 MG TAB PO SCH (17:00)
--- NOTE | 2023-08-08 00:25 | DS ---
Date of Discharge: 08/07/2023 Disposition: Discharged to go home. Physical Examination: HEENT: Unremarkable. Lungs: Clear to auscultation. Heart: Heart sounds normal. Abdomen: Soft. Bowel sounds normal. No guarding, rigidity, tenderness, or distention. Extremities: No leg edema. Laboratory Data: Dilantin level was 14.1. Upon admission, sodium was 136, potassium 4, chloride 106 , bicarb 31, BUN 15, creatinine 1.05, glucose 103. Liver function tests unremarkable. Lipase 40. Y esterday, sodium 139, potassium 3.6, chloride 107, bicarb 25, BUN 11, creatinine 1.05, glucose 112. For CBC, upon admission, white count 3.5, hemoglobin 13.2, platelets 110 and yesterday white count 4, hemoglobin 11.8, platelets 114. Hospital Course: This is a 78-year-old male patient who fell down at home in his living room, was br ought into the emergency room with complaints of rib pain and after evaluation in the emergency room, he was admitted to the hospital with multiple left-sided rib fractures. There was no evidence of pn eumothorax. The patient was admitted to the hospital and surgery consultation was obtained from Dr. Baxter. The patient did not require any surgical intervention. Repeat chest x-ray came back unrema rkable except small pleural effusion. No evidence of pneumothorax or any pneumonia or any other acut e lung injury. Empiric antibiotics were started while he was in the hospital with Unasyn as he is at high risk of having pneumonia and we started this. He was also advised to use incentive spirometer every hour from 7 a.m. to 9 p.m. Physical therapy was consulted and the patient started ambulating w ell with the therapist. He has Lewy body dementia and during hospitalization, he was noted to have m ore confusion than usual as reported by the patient's . Social Service was consulted to help leon e arrangements for home health care and home physical therapy services. Once everything was arranged , he was discharged to go home today in stable condition. Final Diagnoses: 1.Multiple left-sided rib fractures. 2.Maxillary antrum fracture. 3.Pancytopenia. 4.Hypertension. 5.Seizure disorder. 6.Mixed hyperlipidemia. 7.Gastroesophageal reflux disease. 8.Osteoporosis. 9.Lewy body dementia. Discharge Medications And Instructions: 1.Continue all prior home medications. 2.Tylenol 500 mg take 2 tablets by mouth 2 times a day. 3.[place] 5 mg take 1 tablet by mouth 4 times a day as needed for pain. 4.Take whnc-wre-cswcmeb stool softener, Senokot-S 2 tablets by mouth daily. 5.Augmentin 875 mg take 1 tablet by mouth 2 times a day with food for 1 week. 6.Use incentive spirometer every hour from 7 a.m. to 10 p.m. as advised. 7.Follow up at my office week after next. 8.Use walker to ambulate. LADONNA/MODL Voice ID: [id number] Report ID: [id number]
== END 2023-08-07 10:24 | disposition home health service (06) | DRG 184 ==
LOC: ER 11:54 → 2ND 15:53
PROVIDERS: ADMIT Internal Medicine; ATTEND Internal Medicine
DX: S22.42XA Multiple fractures of ribs, left side, initial encounter for closed fracture (principal); D61.818 Other pancytopenia; S02.401A Maxillary fracture, unspecified side, initial encounter for closed fracture; I10 Essential (primary) hypertension; K21.9 Gastro-esophageal reflux disease without esophagitis; E78.2 Mixed hyperlipidemia; M81.0 Age-related osteoporosis without current pathological fracture; N40.0 Benign prostatic hyperplasia without lower urinary tract symptoms; G40.909 Epilepsy, unspecified, not intractable, without status epilepticus; G31.83 Neurocognitive disorder with Lewy bodies; F02.80 Dementia in other diseases classified elsewhere, unspecified severity, without behavioral disturbance, psychotic disturbance, mood disturbance, and anxiety; Z88.8 Allergy status to other drugs, medicaments and biological substances; Z90.49 Acquired absence of other specified parts of digestive tract; Z79.82 Long term (current) use of aspirin; Z86.73 Personal history of transient ischemic attack (TIA), and cerebral infarction without residual deficits; Z98.52 Vasectomy status; Z88.6 Allergy status to analgesic agent; Z86.718 Personal history of other venous thrombosis and embolism; Z96.619 Presence of unspecified artificial shoulder joint; W01.0XXA Fall on same level from slipping, tripping and stumbling without subsequent striking against object, initial encounter; Y93.9 Activity, unspecified; Y99.9 Unspecified external cause status; Y92.018 Other place in single-family (private) house as the place of occurrence of the external cause
CPT/HCPCS: 36415; 70450; 71045; 71046; 71260; 72125; 74177; 80048; 80076; 80185; 81001; 82550; 83690; 83735; 83880; 84484; 85025; 85610; 90471; 93005; 94010; 96361; 96374; 96375; 97116; 97161; 97530; 99285; J0295; J1630; J2270; J2405; J7030; J7040; J7614; J7644; Q2035; Q9966

== ENCOUNTER 2023-08-14 10:16 | Inpatient (IN) | payer OTHER ==
--- NOTE | 2023-08-14 11:16 | RAD REPORT ---
EXAM DESCRIPTION: RADChest Single View08/14/2023 10:58 am CLINICAL HISTORY: COUGH COMPARISON: Chest Pa And Lat (2 Views) dated 08/06/2023; Chest Single View dated 08/05/2023; Chest S janet View dated 09/27/2022; Chest Single View dated 09/26/2022 TECHNIQUE: Portable AP view of the chest. FINDINGS: Progressive left basilar airspace opacity, partially obscuring the left diaphragmatic bord er. Calcified pleural plaque bilaterally, stable. No pneumothorax or effusion. The cardiomediastinal contours are unremarkable. IMPRESSION: Progressive left basilar airspace opacity, may represent atelectasis or pneumonia.
[2023-08-14 11:17] LABS: SARS-CoV-2 Antigen Rapid Res Negative (Negative)
[2023-08-14 11:22] LABS: Absolute Lymphocytes (CBC) 0.6 K/uL (0.7-4.9); Hematocrit 36.5 % (39.6-49.0); Lymphocytes % 9.8 % (15.3-44.8); MCV 90.8 fL (80-100); MPV 6.5 fL (7.6-11.3); Platelets 203 thou/uL (152-406); RBC Red Blood Cell Count 4.02 M/uL (4.33-5.43)
[2023-08-14 11:40] LABS: Albumin 3.2 g/dL (3.4-5.0); Bilirubin Total 0.3 mg/dL (0.2-1.0); Potassium 4.2 mEq/L (3.5-5.1); Protein, Total 6.7 g/dL (6.4-8.2)
--- NOTE | 2023-08-14 11:49 | RAD REPORT ---
EXAM DESCRIPTION: CT - Abdomen Pelvis W Contrast - 08/14/2023 11:30 am CLINICAL HISTORY: ABD PAIN COMPARISON: Abdomen Pelvis W Contrast dated 12/03/2021; Abdomen Pelvis W Contrast dated 0; Abdomen Pelvis W Contrast dated 03/20/2019; Abdomen Pelvis W Contrast dated 04/19/2017; Head C Sp ine Cap W Con dated 08/05/2023 TECHNIQUE: Thin cut axial CT imaging of the abdomen and pelvis was performed following intravenous a dministration of 100 mL Isovue 300. Multiplanar reformats were generated and reviewed. All CT scans are performed using dose optimization technique as appropriate and may include automated exposure control or mA/KV adjustment according to patient size. FINDINGS: Few calcific pleural plaques. Small layering left pleural effusion with underlying subsegm ental atelectasis. Small lobulated hyperdense components layering dependently in the left lower hemit horax, may represent hemothorax components/clots. IVC filter in place The liver, spleen, adrenal glands, and pancreas show no suspicious findings. Gallbladder and biliary tree are also without suspicious finding. Symmetric renal function is seen with no hydronephrosis or suspicious renal mass. No dilated bowel loops or bowel wall thickening. No free air, free fluid or inflammatory stranding. N o hernia, mass or bulky lymphadenopathy. The urinary bladder is without significant finding. Left sixth through ninth rib fractures including segmental fractures of the left sixth through eighth ribs. IMPRESSION: Multiple left lower rib fractures as above, with developing left hemothorax. No other acute process within the abdomen and pelvis.
--- NOTE | 2023-08-14 12:39 | RAD REPORT ---
EXAM DESCRIPTION: CT - Thorax Wo Con CLINICAL HISTORY: Chest pain CHEST PAIN COMPARISON: Chest For Pe Angio dated 12/03/2021 FINDINGS: Mild linear atelectasis is present in both lung bases. Calcified pleural plaques are prese nt bilaterally. Small amount of left pleural fluid is present. No pneumothorax. Posterior seventh, ei ghth ribs are fractured. Posterior and lateral aspect of the fifth, sixth, seventh, eighth and ninth ribs also fractured. No axillary, mediastinal or hilar adenopathy. Moderate dextroscoliosis seen of the thoracic spine. No gross upper abdominal finding. All CT scans are performed using dose optimization technique as appropriate and may include automated exposure control or mA/KV adjustment according to patient size. IMPRESSION: Multiple left-sided rib fractures are present as detailed with small left pleural effusi on/hemothorax.No pneumothorax.
[2023-08-14] MEDS ORDERED: NA CHLORIDE 0.9% 50 ML ONE (12:59)
[2023-08-14] MEDS ORDERED: CEFTRIAXONE 1000 MG/VIAL ONE (12:59)
[2023-08-14] MEDS ORDERED: AZITHROMYCIN 500 MG INJ IVPB ONE (13:00)
[2023-08-14] MEDS ORDERED: NA CHLORIDE 0.9% 250 ML ONE (13:00)
--- NOTE | 2023-08-14 13:55 | ER ---
Nurse's Notes [facility] Name: Nelson Murillo Age: 78 yrs Sex: Male : 1945 Arrival Date: 08/14/2023 Time: 10:16 Bed 2 Private MD: Cliff Alvarez C Diagnosis: Unspecified bacterial pneumonia Presentation: 08/14 10:36 Chief complaint: Abdominal pain and pain with cough x 3 days. Recently inpatient s/p hb fall with multiple left sided rib fractures. Coronavirus screen: At this time, the client does not indicate any symptoms associated with coronavirus-19. Ebola Screen: No symptoms or risks identified at this time. Initial Sepsis Screen: Does the patient meet any 2 criteria? No. Patient's initial sepsis screen is negative. Does the patient have a suspected source of infection? No. Patient's initial sepsis screen is negative. Risk Assessment: Do you want to hurt yourself or someone else? Patient reports no desire to harm self or others. Onset of symptoms was August 11, 2023. 10:36 Method Of Arrival: Wheelchair hb 10:36 Acuity: HILARIA 3 hb Historical: - Allergies: 10:38 Aspirin; hb 10:38 Ativan; hb 10:38 blood thinners; Can't take any blood thinners due to previous brain bleed; hb - Home Meds: 10:38 atorvastatin 80mg daily [Active]; Dilantin 200mg Oral cap twice a day [Active]; hb Dilantin 30 mg Oral cap daily [Active]; ezetimibe 10 mg Oral nightly [Active]; Feosol 325 mg (65 mg iron) Oral tab daily [Active]; Fesol 65mg every Mon/wed/fri [Active]; losartan 50mg daily [Active]; metoprolol tartrate 25 mg Oral tab 1 tab 2 times per day [Active]; Metoprolol Tartrate Oral 25 mg twice a day [Active]; Mirtazapine Oral 7.5 mg nightly [Active]; omeprazole 40 mg Oral cpDR once daily [Active]; Omeprazole Oral 40 mg daily [Active]; glucosamine sulfate 1500 every day Oral [Active]; calcium 600 +D3 twice a day [Active]; - PMHx: 10:38 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 - Social history:: Smoking status: Patient denies any tobacco usage or history of. Screenin:00 [facility] ED Fall Risk Assessment (Adult) History of falling in the last 3 months, ko1 including since admission Yes- single mechanical fall (1 pt) Confusion or Disorientation No (0 pts) Intoxicated or Sedated No (0 pts) Impaired Gait Yes (1 pt) Mobility Assist Device Used Yes (1 pt) Altered Elimination No (0 pt) Score/Fall Risk Level 0 - 2 = Low Risk Oriented to surroundings, Maintained a safe environment, Educated pt \T\ family on fall prevention, incl call for assistance when getting out of bed, Assessed \T\ reinforced patient's understanding of fall precautions, Provided non-skid footwear, Hourly rounding (assess needs \T\ fall precautionary measures) done, Used ambulatory aids as needed (educated on \T\ assisted with), Used gait belt as appropriate. Abuse screen: Denies threats or abuse. Denies injuries from another. Nutritional screening: No deficits noted. Tuberculosis screening: No symptoms or risk factors identified. Assessment: 11:00 General: Appears in no apparent distress. uncomfortable, ill, Behavior is calm, ko1 cooperative, appropriate for age, drowsy. Pain: Complains of pain in left ribs. Neuro: No deficits noted. Cardiovascular: No deficits noted. Respiratory: No deficits noted. GI: Bowel sounds present X 4 quads. Abd is soft and non tender X 4 quads. : No deficits noted. EENT: No deficits noted. Derm: Bruising that is dark purple, brown, green, yellow, on left eye, left ribs. Musculoskeletal: Reports pain in left ribs. Vital Signs: 10:36 BP 148 / 95; Pulse 64; Resp 20; Temp 98.2(O); Pulse Ox 98% on R/A; Weight 83.5 kg; hb Height 5 ft. 9 in. ; Pain 8/10; 14:31 BP 140 / 86; Pulse 78; Resp 16; Pulse Ox 98% ; ko1 15:30 BP 135 / 72; Pulse 69; Resp 15; Pulse Ox 99% ; ko1 16:30 BP 136 / 95; Pulse 76; Resp 16; Pulse Ox 99% ; ko1 18:00 BP 138 / 91; Pulse 77; Resp 14; Pulse Ox 99% ; ko1 10:36 Body Mass Index 27.18 (83.50 kg, 175.26 cm) hb 10:36 Pain Scale: Adult hb ED Course: 10:18 Patient arrived in ED. mr 10:19 Cliff Alvarez MD is Private Physician. mr 10:20 Madhu De Los Santos MD is Attending Physician. ec2 10:38 Triage completed. hb 10:41 Arm band placed on. hb 10:57 Becky Mcleod, FERN is Primary Nurse. ko1 10:58 Influenza Screen (a \T\ B) Sent. ko1 10:58 SARS RAPID Sent. ko1 11:00 CXR XRAY In Process Unspecified. EDMS 11:00 Patient has correct armband on for positive identification. Placed in gown. Bed in low ko1 position. Call light in reach. Side rails up X2. Client placed on continuous cardiac and pulse oximetry monitoring. NIBP monitoring applied. front desk monitor on. Door closed. Noise minimized. Lights dimmed. Warm blanket given. 11:10 Inserted saline lock: 22 gauge in left antecubital area, using aseptic technique. Blood ko1 collected. 11:15 CMP Sent. ko1 11:15 CBC with Diff Sent. ko1 11:32 CT Abd/Pelvis - IV Contrast Only In Process Unspecified. EDMS 12:30 CT Chest Wo Con In Process Unspecified. EDMS 13:54 Juana Noyola MD is Hospitalizing Provider. ec2 15:13 Provided Education on: na. ko1 15:13 No provider procedures requiring assistance completed. Patient admitted, IV remains in ko1 place. Administered Medications: 13:10 Drug: Rocephin IV 1 grams IV at calculated rate once; Given slow IV push per pharmacy ko1 instructions Route: IV; Rate: calculated rate; Site: left antecubital; 13:10 Drug: AZITHromycin IVPB 500 mg IVPB once over 1 hrs; (mix in 250 mL NS) Route: IVPB; ko1 Infused Over: 1 hrs; Site: left antecubital; Medication: 11:00 VIS not applicable for this client. ko1 Outcome: 13:54 Decision to Hospitalize by Provider. ec2 15:13 Condition: stable ko1 15:13 Instructed on the need for admit, 19:20 Patient left the ED. rv Signatures: Dispatcher [employer] EDWV Lexii Hager, Reg Reg mr Asmita Cortes RN RN Saji Meza RN RN Becky Mcleod RN RN ko1 Madhu De Los Santos MD MD ec2 Corrections: (The following items were deleted from the chart) 10:38 10:36 BP 148 / 95; Pulse 64bpm; Resp 20bpm; Pulse Ox 98% RA; Temp 98.2F Oral; 83.5 kg; hb Pain 8/10, Adult; hb
--- NOTE | 2023-08-14 13:55 | EDPHYS ---
Physician Documentation [facility] Name: Nelson Murillo Age: 78 yrs Sex: Male : 1945 Arrival Date: 08/14/2023 Time: 10:16 Bed 2 Private MD: Cliff Alvarez C ED Physician Madhu De Los Santos HPI: 08/14 10:36 This 78 yrs old Male presents to ER via Unassigned with complaints of Cough, ec2 Abdominal Pain. 10:36 Patient arrives today for evaluation of cough and abdominal pain. States that he had a ec2 recent fall where he was diagnosed with multiple rib fractures on the left side, states that he is having some abdominal pain and says that he has developed a cough. Patient reports no nausea or vomiting, no fevers or chills. Reports that he is on antibiotic, believes amoxicillin.. Historical: - Allergies: 10:38 Aspirin; hb 10:38 Ativan; hb 10:38 blood thinners; Can't take any blood thinners due to previous brain bleed; hb - Home Meds: 10:38 atorvastatin 80mg daily [Active]; Dilantin 200mg Oral cap twice a day [Active]; hb Dilantin 30 mg Oral cap daily [Active]; ezetimibe 10 mg Oral nightly [Active]; Feosol 325 mg (65 mg iron) Oral tab daily [Active]; Fesol 65mg every Mon/wed/fri [Active]; losartan 50mg daily [Active]; metoprolol tartrate 25 mg Oral tab 1 tab 2 times per day [Active]; Metoprolol Tartrate Oral 25 mg twice a day [Active]; Mirtazapine Oral 7.5 mg nightly [Active]; omeprazole 40 mg Oral cpDR once daily [Active]; Omeprazole Oral 40 mg daily [Active]; glucosamine sulfate 1500 every day Oral [Active]; calcium 600 +D3 twice a day [Active]; - PMHx: 10:38 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 - Social history:: Smoking status: Patient denies any tobacco usage or history of. ROS: 10:36 Constitutional: as per hpi ec2 Exam: 10:36 Constitutional: GEN: NAD Head: atraumatic Eyes: EOMI Ears: External ears are ec2 normal. CV: regular rate LUNGS: no respiratory distress, no wheezes, rales, or rhonchi ABD: non-distended, soft, tender in epigastrium, no guarding, not rigid SKIN: Ecchymosis noted to the left lateral lower ribs MSK: no evidence of trauma NEURO: moves all extremities equally Vital Signs: 10:36 BP 148 / 95; Pulse 64; Resp 20; Temp 98.2(O); Pulse Ox 98% on R/A; Weight 83.5 kg; hb Height 5 ft. 9 in. ; Pain 8/10; 14:31 BP 140 / 86; Pulse 78; Resp 16; Pulse Ox 98% ; ko1 15:30 BP 135 / 72; Pulse 69; Resp 15; Pulse Ox 99% ; ko1 16:30 BP 136 / 95; Pulse 76; Resp 16; Pulse Ox 99% ; ko1 18:00 BP 138 / 91; Pulse 77; Resp 14; Pulse Ox 99% ; ko1 10:36 Body Mass Index 27.18 (83.50 kg, 175.26 cm) hb 10:36 Pain Scale: Adult hb MDM: 10:29 Patient medically screened. ec2 10:37 Data reviewed:. ED course: Patient arrives today for evaluation of cough as well as ec2 abdominal pain. Examination remarkable for well-appearing nontoxic individual otherwise in no acute respiratory distress with a reassuring cardiopulmonary examination. Will obtain lab work, chest x-ray, EKG as well as CT imaging of the abdomen pelvis. Currently considering process such as posttraumatic rib pain as well as splenic injury.. 10:42 Data reviewed: vital signs. ec2 11:16 ED course: EKG independently reviewed and interpreted by me, shows normal sinus rhythm, ec2 rate of 66, no acute ST segment elevations, nonconcerning intervals.. 12:15 ED course: CBC is reassuring. Metabolic profile with appropriate electrolytes and renal ec2 function. Chest x-ray shows left basilar opacity consistent with pneumonia. CT abdomen pelvis shows left-sided rib fractures with developing left hemothorax. Will obtain dedicated CT imaging of the chest. Negative flu and COVID testing. Will add on antibiotics for pneumonia coverage. Will obtain further dedicated CT imaging of the chest to further investigate for pneumonia versus hemothorax. . 13:53 ED course: CT imaging shows persistent left-sided hemothorax, given the cough and cold ec2 symptoms I will admit for pneumonia given the recent injuries and falls. Patient otherwise not hypoxic not working hard to breathe. Discussed case with hospitalist, pending admission.. 08/14 10:36 Order name: CBC with Diff; Complete Time: 12:14 ec2 08/14 10:36 Order name: CMP; Complete Time: 12:14 ec2 08/14 10:36 Order name: SARS RAPID; Complete Time: 12:14 ec2 08/14 10:36 Order name: Influenza Screen (a \T\ B); Complete Time: 12:14 ec2 08/14 10:36 Order name: CXR XRAY; Complete Time: 12:14 ec2 08/14 10:36 Order name: CT Abd/Pelvis - IV Contrast Only; Complete Time: 12:14 ec2 08/14 12:15 Order name: CT Chest Wo Con; Complete Time: 12:51 ec2 08/14 10:36 Order name: EKG; Complete Time: 10:37 ec2 08/14 10:36 Order name: EKG - Nurse/Tech; Complete Time: 11:08 ec2 Administered Medications: 13:10 Drug: Rocephin IV 1 grams IV at calculated rate once; Given slow IV push per pharmacy ko1 instructions Route: IV; Rate: calculated rate; Site: left antecubital; 13:10 Drug: AZITHromycin IVPB 500 mg IVPB once over 1 hrs; (mix in 250 mL NS) Route: IVPB; ko1 Infused Over: 1 hrs; Site: left antecubital; Disposition Summary: 08/14/23 13:54 Hospitalization Ordered Notes: Hospitalization Status: Inpatient Admission ec2 Provider: [place] Noyola ec2 Condition: Stable ec2 Problem: an acute exacerbation ec2 Symptoms: are unchanged ec2 Bed/Room Type: Standard ec2 Location: Telemetry/MedSurg (Inpatient)(08/14/23 16:43) [facility] [place] Room Assignment: 222(08/14/23 16:43) mc5 Diagnosis - Unspecified bacterial pneumonia ec2 Forms: - Medication Reconciliation Form ec2 - SBAR form ec2 - Leadership Thank You Letter ec2 Signatures: Dispatcher [employer] Asmita Latham RN RN Katia Prajapati RN RN kb3 Becky Mcleod RN RN ko1 Darline Shreya mc5 Madhu De Los Santos MD MD ec2 Corrections: (The following items were deleted from the chart) 14:04 13:54 Telemetry/MedSurg (Inpatient) ec2 kb3 14:04 13:54 ec2 kb3 16:43 14:[address] [facility] ER HOLD kb3 mc5 16:43 14:04 ERHOLD- kb3 mc5
--- NOTE | 2023-08-14 14:47 | P.HP ---
Certification for Inpatient Patient admitted to: Inpatient With expected LOS: <2 Midnights Patient will require the following post-hospital care: Home Health Services Practitioner: I am a practitioner with admitting privileges, knowledge of patient current condition, hospital course, and medical plan of care. 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 is at bedside is primary historian reports recent fall 1 week ago, with rib fracures. She reports left flank brusing that is getting probressive worse. He denies fever, NVD, edema, shortness of breath. Plan to admit for LLL pneumonia, left hemothorax, multible rib fractures, frequent falls. CXR IMPRESSION: Progressive left basilar airspace opacity, may represent atelectasis or pneumonia. CT ABD/Pelvis IMPRESSION: Multiple left lower rib fractures as above, with developing left hemothorax.No other acute process within the abdomen and pelvis Lab evaluation HH 12.7/36.5, elevated left shift Neut 80.5, mild hyponatremia, 135 - Past Medical/Surgical History Diabetic: No -: seizures,HTN -: TIA -: H pylori infectionHLD -: GERD -: Sleep apnea -: High Cholesterol -: Subdural Hematoma -: Inguinal Hernia -: Subarchnoid hemorage -: Brain Bleeds X5 -: CVA -: DVT Bilateral legs -: May[place] Foot surgery, Tonsillectomy, Appendectomy -: R Shoulder replacement, Vasectomy, inguinal hernia repair -: craniotomyx 2 -: IVC filter placement 12/2016 - Family History Mother -: Heart disease, Hypertension Father -: Cancer, Other (see notes) Notes: [place]; Lung Cancer Sister -: Other (see notes) Notes: [place] - Social History Alcohol use: No CD- Drugs: No Caffeine use: Yes <Elda Ramirez - Last Filed: 08/14/23 18:15> Date of Service: 08/15/23 <NoyolaGiselagabriela Root - Last Filed: 08/15/23 05:58> Allergies lorazepam [From Ativan] Allergy (Verified 07/25/22 15:00) Agitation aspirin Adverse Reaction (Verified 07/25/22 15:00) Brain bleed NSAIDS (Non-Steroidal Anti-Inflamma Adverse Reaction (Verified 07/25/22 15:00) Brain Bleed Home Medications: Acetaminophen [Tylenol] 500 mg PO Q4H PRN 12/04/15 Glucosamine Sulfate 1,500 mg PO DAILY 12/04/15 Omeprazole 40 mg PO 1200 12/04/15 Metoprolol Tartrate [Lopressor*] 25 mg PO BID 6AM 6PM tab 02/09/17 PHENYTOIN ER Cap [Dilantin ER Cap*] 200 mg PO BID cap 02/09/17 Phenytoin Sodium Extended [Dilantin] 30 mg PO DAILY 10/28/17 Cyanocobalamin [Vitamin B-12*] 1 tab PO NOON 03/25/18 Ezetimibe 10 mg PO BEDTIME 03/25/18 Ferrous Sulfate [Feosol] 65 mg PO M,W,F 03/25/18 Atorvastatin Calcium [Lipitor] 80 mg PO BEDTIME 07/25/22 Calcium Carbonate/Vitamin D3 [Calcium 600 mg-D3 10 Mcg Sfgl] 1 each PO BID 07/25/22 Losartan Potassium [Cozaar*] 50 mg PO DAILY 07/25/22 Review of Systems per HPI <Elda Ramirez - Last Filed: 08/14/23 18:15> Physical Examination - Physical Exam General: Alert, In no apparent distress, Confused, Obese HEENT: Atraumatic, Normocephalic Neck: 2+ carotid pulse no bruit, JVD not distended Respiratory: Normal air movement, Diminished (LLL) Cardiovascular: Normal pulses, Regular rate/rhythm Gastrointestinal: Normal bowel sounds, Soft and benign Musculoskeletal: No clubbing, No swelling, Other (Left rib fractures ) Integumentary: No rashes, No breakdown, Other (left flank brusing) Neurological: Normal speech, Normal strength at 5/5 x4 extr, Dementia - Studies Laboratory Data (last 24 hrs) 08/14/23 08/14/23 11:10 11:10 WBC 6.30 Hgb 12.7 L Hct 36.5 L Plt Count 203 Sodium 135 L Potassium 4.2 BUN 13 Creatinine 1.10 Glucose 103 Total Bilirubin 0.3 AST 25 ALT 26 Alkaline Phosphatase 112 Microbiology Data (last 24 hrs): 08/14/23 10:55 Nasopharnyx Influenza Type A Antigen Screen - Final 08/14/23 10:55 Nasopharnyx Influenza Type B Antigen Screen - Final <Elda Ramirez - Last Filed: 08/14/23 18:15> - Studies Laboratory Data (last 24 hrs) 08/14/23 08/14/23 11:10 11:10 WBC 6.30 Hgb 12.7 L Hct 36.5 L Plt Count 203 Sodium 135 L Potassium 4.2 BUN 13 Creatinine 1.10 Glucose 103 Total Bilirubin 0.3 AST 25 ALT 26 Alkaline Phosphatase 112 Microbiology Data (last 24 hrs): 08/14/23 10:55 Nasopharnyx Influenza Type A Antigen Screen - Final 08/14/23 10:55 Nasopharnyx Influenza Type B Antigen Screen - Final <Juana Noyola - Last Filed: 08/15/23 05:58> Assessment and Plan - Plan Assessment plan left lower lobe pneumonia Left rib fractures Left hemothorax is at bedside is primary historian reports recent fall 1 week ago, with rib fracures. She reports left flank brusing that is getting probressive worse. He denies fever, NVD, edema, shortness of breath. Plan to admit for LLL pneumonia, left hemothorax, multible rib fractures, frequent falls. CXR IMPRESSION: Progressive left basilar airspace opacity, may represent atelectasis or pneumonia. CT ABD/Pelvis IMPRESSION: Multiple left lower rib fractures as above, with developing left hemothorax.No other acute process within the abdomen and pelvis Lab Daily chest x-ray, serial H&H trend hemoglobin IV azithromycin, IV ceftriaxone, nebs, O2 2 L keep sats greater than 92% elevated left shift Neut 80.5, Multiple falls PT eval, fall precaution Microcytic anemia HH 12.7/36.5, History of CVA History of TIA History of dementia History of subdural hematoma Hypertension Hyperlipidemia Seizure disorder Resume appropriate home meds Diet cardiac Full code DVT SCDs Discharge Plan: Home Plan to discharge in: 48 Hours - Advance Directives Does patient have a Living Will: No Does patient have a Durable POA for Healthcare: No - Code Status/Comfort Care Code Status: Full Code Physician Review: Patient Assessed, Agree with Above Assessment and Plan Critical Care: No Time Spent Managing Pts Care (In Minutes): 55 <Elda Ramirez - Last Filed: 08/14/23 18:15> Date of Service: 08/14/23 According to the weight patient has been falling quite a bit and has gotten weaker. She tries to care for him but has been having difficulty as patient with advanced Lewy bodies dementia. Patient had sundowning with the hydrocodone so she does not want this. She wanted to try something different for his pain. Patient may be having some pleuritic pain with the rib fractures. Patient also with small hemothorax reviewed by General surgery. Surgery does not feel patient needs any intervention at this time. Patient's long-term prognosis is poor. Patient with advanced Lewy bodies dementia with continued fall. Patient may need hospice placement. Will discuss with family regarding long-term goals of care. At this time patient continues to decline according to the and she is having a very difficult time caring for him. He will probably need to go to a memory unit for closer monitoring. He also has sundowning so will start Seroquel at night. <Juana Noyola - Last Filed: 08/15/23 05:58>
[2023-08-14 18:40] VITALS: BMI 27.1
[2023-08-14] MEDS ORDERED: NA CHLORIDE 0.9% 1,000 ML IV SCH (19:20)
[2023-08-14] MEDS ORDERED: ONDANSETRON 4 MG/2 ML VIAL IV PRN (19:20)
[2023-08-14] MEDS: ALBUTEROL 2.5 MG/3 ML NEB SOL NEB SCH (21:21)
[2023-08-15] MEDS: ALBUTEROL 2.5 MG/3 ML NEB SOL NEB SCH ×4 (02:02→19:47)
[2023-08-15 02:03] LABS: Absolute Lymphocytes (CBC) 0.7 K/uL (0.7-4.9); Hematocrit 35.5 % (39.6-49.0); Lymphocytes % 10.4 % (15.3-44.8); MCV 89.9 fL (80-100); MPV 7.1 fL (7.6-11.3); Platelets 197 thou/uL (152-406); RBC Red Blood Cell Count 3.95 M/uL (4.33-5.43)
[2023-08-15 02:04] LABS: Potassium 3.7 mEq/L (3.5-5.1)
[2023-08-15] MEDS: ACETAMINOPHEN 500 MG TAB PO PRN (04:16)
[2023-08-15] MEDS: CEFTRIAXONE 1,000 MG in NA CHLORIDE 0.9% 50 ML IVPB SCH (08:38)
[2023-08-15] MEDS ORDERED: QUETIAPINE 25 MG TAB PO SCH (09:00)
[2023-08-15] MEDS ORDERED: POTASSIUM CL SA 10 MEQ TAB PO ONE (09:00)
--- NOTE | 2023-08-15 09:40 | RAD REPORT ---
EXAM DESCRIPTION: RADChest Single View08/15/2023 6:02 am CLINICAL HISTORY: pneumonia, rib fx COMPARISON: Chest Single View dated 08/14/2023; Chest Pa And Lat (2 Views) dated 08/06/2023; Chest S janet View dated 08/05/2023; Chest Single View dated 09/27/2022 TECHNIQUE: Portable AP view of the chest. FINDINGS: Stable mild left basilar airspace opacity. Stable calcific pleural plaque. No pneumothora x or effusion. The cardiomediastinal contours are unremarkable. IMPRESSION: Stable mild left basilar airspace opacity, which may represent atelectasis or pneumonia.
--- NOTE | 2023-08-15 09:56 | P.PN ---
Subjective Date of Service: 08/15/23 Chief Complaint: 78 yrs old Male with past medical history of subarachnoid hemorra alseep, awaken to verbal stimuli, repositioned in bed, assisted to stand, moderate generalized weakness, fall precautions, - Physical Exam General: Alert, In no apparent distress, Confused, Obese HEENT: Atraumatic, Normocephalic Neck: 2+ carotid pulse no bruit, JVD not distended Respiratory: Normal air movement, Diminished (LLL) Cardiovascular: Normal pulses, Regular rate/rhythm Gastrointestinal: Normal bowel sounds, Soft and benign Musculoskeletal: No clubbing, No swelling, Other (Left rib fractures ) Integumentary: No rashes, No breakdown, Other (left flank brusing) Neurological: Normal speech, Normal strength at 5/5 x4 extr, Dementia <Elda Ramirez - Last Filed: 08/15/23 17:04> Date of Service: 08/15/23 <Regulo Hampton - Last Filed: 08/15/23 21:08> Review of Systems per HPI <Elda Ramirez - Last Filed: 08/15/23 17:04> Physical Examination - Vital Signs Temperature: 98.4 F Blood Pressure: 141/82 Pulse: 88 Respirations: 18 Pulse Ox (%): 97 - Studies Laboratory Data (last 24 hrs) 08/14/23 08/14/23 11:10 11:10 WBC 6.30 Hgb 12.7 L Hct 36.5 L Plt Count 203 Sodium 135 L Potassium 4.2 BUN 13 Creatinine 1.10 Glucose 103 Total Bilirubin 0.3 AST 25 ALT 26 Alkaline Phosphatase 112 Microbiology Data (last 24 hrs): 08/14/23 10:55 Nasopharnyx Influenza Type A Antigen Screen - Final 08/14/23 10:55 Nasopharnyx Influenza Type B Antigen Screen - Final <Elda Ramirez - Last Filed: 08/15/23 17:04> Assessment And Plan - Plan Assessment plan left lower lobe Acute hypoxic respiratory failure secondary to left lower lobe pneumonia CXR IMPRESSION: Progressive left basilar airspace opacity, may represent atelectasis or pneumonia. CT ABD/Pelvis IMPRESSION: Multiple left lower rib fractures as above, with developing left hemothorax.No other acute process within the abdomen and pelvis Lab Daily chest x-ray, serial H&H trend hemoglobin IV azithromycin, IV ceftriaxone, nebs, O2 2 L keep sats greater than 92% elevated left shift Neut 80.5, Multiple falls Left rib fractures Left hemothorax is at bedside is primary historian reports recent fall 1 week ago, with rib fracures. She reports left flank brusing that is getting probressive worse. He denies fever, NVD, edema, shortness of breath. Plan to admit for LLL pneumonia, left hemothorax, multible rib fractures, frequent falls. 08/[address], no surgical intervention at this time, recommended daily CXR, trend PT eval, fall precaution 08/15 chest x-ray FINDINGS: Stable mild left basilar airspace opacity. Stable calcific pleural plaque. No pneumothorax or effusion. The cardiomediastinal contours are unremarkable. IMPRESSION: Stable mild left basilar airspace opacity, which may represent atelectasis or pneumonia. 08/15 PT eval pending I assisted patient up in bed patient had moderate generalized weakness, unsteady gait, fall risk Microcytic anemia HH 12.7/36.5,trend H&H 12.713.112.6 Hematocrit 36.5 35.5 History of CVA History of TIA History of dementia History of subdural hematoma Hypertension Hyperlipidemia Seizure disorder Resume appropriate home meds Diet cardiac Full code DVT SCDs Discharge Plan: Home - Code Status/Comfort Care Code Status: Full Code Critical Care: No Time Spent Managing PTS Care (In Minutes): 35 <Elda Ramirez - Last Filed: 08/15/23 17:04> Physician Review: Patient Assessed, Agree with Above Assessment and Plan Physician Review Additional Text: Doing well. Ordered CT head given falls and history of intracranial bleed. Regulo Hampton M.D. <Regulo Hampton - Last Filed: 08/15/23 21:08>
[2023-08-15] MEDS ORDERED: dexAMETHasone 4 MG/ML VIAL IV SCH (12:00)
--- NOTE | 2023-08-15 13:24 | EKG ---
Test Date: 2023-08-14 Test Time: 11:05:51 Web Offset Press Feeder: L[place]ER[place] MEASUREMENT RESULTS: Intervals: Rate: 66 SC: 202 QRSD: 94 QT: 416 QTc: 436 [place]: P: 61 SC: 202 QRS: 43 T: 51 INTERPRETIVE STATEMENTS: Normal sinus rhythm Normal ECG Compared to ECG 08/05/2023 12:42:13 No significant changes Electronically Signed On 08-15-23 13:20:09 [employer] by Edgar Mccormick
[2023-08-15] MEDS: AZITHROMYCIN IV 500 MG in NA CHLORIDE 0.9% 250 ML IVPB SCH (13:33)
[2023-08-15] MEDS: QUETIAPINE 25 MG TAB PO SCH (21:00)
--- NOTE | 2023-08-15 22:33 | RAD REPORT ---
EXAM DESCRIPTION: CT - [id number] - 08/15/2023 10:23 pm CLINICAL HISTORY: Trauma, head and neck injury. history of bleed COMPARISON: Head C Spine Mpr Wo Con dated 07/29/2020; Head C Spine Mpr Wo Con dated 04/27/2019; Head C Spine Cap W Con dated 08/05/2023 TECHNIQUE: Axial 5 mm thick images of the head were obtained. Axial 2 mm thick images of the cervical spine were obtained with sagittal and coronal reconstruction images generated and reviewed. All CT scans are performed using dose optimization technique as appropriate and may include automated exposure control or mA/KV adjustment according to patient size. FINDINGS: CT HEAD WITHOUT CONTRAST: No acute hemorrhage, hydrocephalus or extra-axial collection is identified.No areas of brain edema or midline shift. Hyperdense secretions within central left maxillary sinus. Subacute left orbital floor and left later al maxillary wall fracture.These findings are new since Trace right mastoid fluid. Remote left fronta l craniotomy. CT CERVICAL SPINE WITHOUT CONTRAST: No fracture or subluxation.No prevertebral soft tissues swelling is identified. Partially imaged left pleural effusion. Carotid artery calcifications. IMPRESSION: No acute intracranial or cervical spine findings. Dense contents within the left maxillary sinus could be inspissated secretions or hemorrhage. Subacut e left orbital floor and lateral maxillary wall fracture.
[2023-08-16] MEDS: ACETAMINOPHEN 500 MG TAB PO PRN (00:41)
[2023-08-16 01:35] LABS: Magnesium 2.1 mg/dL (1.6-2.4); Potassium 3.8 mEq/L (3.5-5.1)
[2023-08-16] MEDS: ALBUTEROL 2.5 MG/3 ML NEB SOL NEB SCH ×2 (01:39→07:00)
[2023-08-16 01:42] LABS: Absolute Lymphocytes (CBC) 0.7 K/uL (0.7-4.9); Hematocrit 34.8 % (39.6-49.0); Lymphocytes % 15.2 % (15.3-44.8); MCV 91.3 fL (80-100); MPV 7.3 fL (7.6-11.3); Platelets 195 thou/uL (152-406); RBC Red Blood Cell Count 3.81 M/uL (4.33-5.43)
[2023-08-16] MEDS: MORPHINE 4 MG/ML SYR IV PRN (03:34)
--- NOTE | 2023-08-16 07:45 | RAD REPORT ---
EXAM DESCRIPTION: RAD - Chest Single View - 08/16/2023 4:19 am CLINICAL HISTORY: pna Chest pain. COMPARISON: Chest Single View dated 08/15/2023; Chest Single View dated 08/14/2023; Chest Pa And Lat (2 Views) dated 08/06/2023; Chest Single View dated 08/05/2023; Thorax Wo Con dated 08/14/2023 FINDINGS: Portable technique limits examination quality. Small left pleural effusion persists, unchanged. Multiple left-sided rib fractures again noted. No si gnificant progression is seen in the pleural collection. Right lung is emphysematous but clear. Heart size is mildly enlarged. IMPRESSION: Stable chest since 08/15/2023 study.
--- NOTE | 2023-08-16 07:56 | P.PN ---
Subjective Date of Service: 08/16/23 <Regulo Hampton - Last Filed: 08/16/23 17:01> Date of Service: 08/16/23 Chief Complaint: 78 yrs old Male with past medical history of subarachnoid hemorra Alert, at bedside, reports feeling better, pain controlled with p.o. meds - Physical Exam General: Alert, In no apparent distress, Confused, Obese HEENT: Atraumatic, Normocephalic Neck: 2+ carotid pulse no bruit, JVD not distended Respiratory: Normal air movement, Diminished (LLL) Cardiovascular: Normal pulses, Regular rate/rhythm Gastrointestinal: Normal bowel sounds, Soft and benign Musculoskeletal: No clubbing, No swelling, Other (Left rib fractures ) Integumentary: No rashes, No breakdown, Other (left flank brusing) Neurological: Normal speech, Normal strength at 5/5 x4 extr, Dementia <Elda Ramirez - Last Filed: 08/16/23 18:17> Review of Systems per HPI <JamesElda - Last Filed: 08/16/23 18:17> Physical Examination - Vital Signs Temperature: 98.5 F Blood Pressure: 106/80 Pulse: 82 Respirations: 16 Pulse Ox (%): 98 <HervedanielElda Last Filed: 08/16/23 18:17> Assessment And Plan Physician Review: Patient Assessed, Agree with Above Assessment and Plan Physician Review Additional Text: He appears to be doing well with physical therapy. He has multiple fractures on his imaging. I spoke with General Surgery (Dr. Alvarez) to evaluate for possible flail chest as a result of his multiple rib fractures. He feels that he does not have flail chest and is safe to be discharged from his standpoint. In regards to his maxillofacial fractures, I spoke with otorhinolaryngology (Dr. Kirk), recommendations are pending. In regards to his facial fractures, his extraocular movements appear to be completely intact and he does not report any visual disturbances. Regulo Hampton M.D. <Regulo Hampton - Last Filed: 08/16/23 17:01> - Plan Assessment plan left lower lobe Acute hypoxic respiratory failure secondary to left lower lobe pneumonia CXR IMPRESSION: Progressive left basilar airspace opacity, may represent atelectasis or pneumonia. CT ABD/Pelvis IMPRESSION: Multiple left lower rib fractures as above, with developing left hemothorax.No other acute process within the abdomen and pelvis Lab Daily chest x-ray, serial H&H trend hemoglobin IV azithromycin, IV ceftriaxone, nebs, O2 2 L keep sats greater than 92% elevated left shift Neut 80.5, Multiple falls Left rib fractures Left hemothorax left orbital floor and lateral maxillary wall fracture. is at bedside is primary historian reports recent fall 1 week ago, with rib fracures. She reports left flank brusing that is getting probressive worse. He denies fever, NVD, edema, shortness of breath. Plan to admit for LLL pneumonia, left hemothorax, multible rib fractures, frequent falls. 08/[address], no surgical intervention at this time, recommended daily CXR, trend PT eval, fall precaution Surgery to eval hemothorax ENT to eval facial fractures prior to discharge 08/15 chest x-ray FINDINGS: Stable mild left basilar airspace opacity. Stable calcific pleural plaque. No pneumothorax or effusion. The cardiomediastinal contours are unremarkable. IMPRESSION: Stable mild left basilar airspace opacity, which may represent atelectasis or pneumonia. 08/[address] scan of the head and cervical spine IMPRESSION: No acute intracranial or cervical spine findings. Dense contents within the left maxillary sinus could be inspissated secretions or hemorrhage. Subacute left orbital floor and lateral maxillary wall fracture. Normal ocular motor function 08/15 PT eval pending I assisted patient up in bed patient had moderate generalized weakness, unsteady gait, fall risk Microcytic anemia HH 12.7/36.5,trend H&H [id number] Hematocrit 36.5 35.5 History of CVA History of TIA History of dementia History of subdural hematoma Hypertension Hyperlipidemia Seizure disorder Resume appropriate home meds Diet cardiac Full code DVT SCDs Discharge Plan: Home - Code Status/Comfort Care Code Status: Full Code Physician Review: Patient Assessed, Agree with Above Assessment and Plan Critical Care: No Time Spent Managing PTS Care (In Minutes): 35 <Elda Ramirez - Last Filed: 08/16/23 18:17>
[2023-08-16] MEDS: AZITHROMYCIN IV 500 MG in NA CHLORIDE 0.9% 250 ML IVPB SCH (09:00)
[2023-08-16] MEDS: CEFTRIAXONE 1,000 MG in NA CHLORIDE 0.9% 50 ML IVPB SCH (09:00)
[2023-08-16] MEDS ORDERED: POTASSIUM CL SA 10 MEQ TAB PO ONE (09:00)
--- NOTE | 2023-08-16 09:28 | P.CNS ---
Date of Consult: 08/16/23 Reason for Consult: Couple rib fractures Chief Complaint: Multiple rib fractures History of Present Illness: Is 78 years of age present at the bedside admitted with a fall multiple rib fractures and a facial fracture he is currently doing better has some discomfort no respiratory distress cough or congestion Allergies lorazepam [From Ativan] Allergy (Verified 07/25/22 15:00) Agitation aspirin Adverse Reaction (Verified 07/25/22 15:00) Brain bleed NSAIDS (Non-Steroidal Anti-Inflamma Adverse Reaction (Verified 07/25/22 15:00) Brain Bleed Home Medications: Acetaminophen [Tylenol] 500 mg PO Q4H PRN 12/04/15 Glucosamine Sulfate 1,500 mg PO DAILY 12/04/15 Omeprazole 40 mg PO 1200 12/04/15 Metoprolol Tartrate [Lopressor*] 25 mg PO BID 6AM 6PM tab 02/09/17 PHENYTOIN ER Cap [Dilantin ER Cap*] 200 mg PO BID cap 02/09/17 Phenytoin Sodium Extended [Dilantin] 30 mg PO DAILY 10/28/17 Cyanocobalamin [Vitamin B-12*] 1 tab PO NOON 03/25/18 Ezetimibe 10 mg PO BEDTIME 03/25/18 Ferrous Sulfate [Feosol] 65 mg PO M,W,F 03/25/18 Atorvastatin Calcium [Lipitor] 80 mg PO BEDTIME 07/25/22 Calcium Carbonate/Vitamin D3 [Calcium 600 mg-D3 10 Mcg Sfgl] 1 each PO BID 07/25/22 Losartan Potassium [Cozaar*] 50 mg PO DAILY 07/25/22 - Past Medical/Surgical History Diabetic: No -: seizures,HTN -: TIA -: H pylori infectionHLD -: GERD -: Sleep apnea -: High Cholesterol -: Subdural Hematoma -: Inguinal Hernia -: Subarchnoid hemorage -: Brain Bleeds X5 -: CVA -: DVT Bilateral legs -: May[facility] Foot surgery, Tonsillectomy, Appendectomy -: R Shoulder replacement, Vasectomy, inguinal hernia repair -: craniotomyx 2 -: IVC filter placement 12/2016 - Family History Mother Medical History: Heart disease, Hypertension Father Medical History: Cancer, Other (see notes) Notes: CA; Lung Cancer Sister Medical History: Other (see notes) Notes: CA - Social History Smoking Status: Unknown if ever smoked Alcohol use: No CD- Drugs: No Caffeine use: Yes Place of Residence: Home Review of Systems 10-point ROS is otherwise unremarkable General: Weakness Respiratory: Shortness of Breath Cardiovascular: Chest Pain Physical Examination Temp Pulse Resp BP Pulse Ox 98.5 F 82 16 106/80 98 08/16/23 07:56 08/16/23 07:56 08/16/23 07:56 08/16/23 07:56 08/16/23 07:56 General: Alert, Oriented x3 Respiratory: Clear to auscultation bilaterally Cardiovascular: No edema, Regular rate/rhythm, Normal S1 S2 Gastrointestinal: Normal bowel sounds, Soft and benign - Problems (1) Ribs, multiple fractures Current Visit: Yes Status: Acute Plan: Patient is 78 years of age admitted with multiple rib fractures on the right side currently doing well there is no evidence of any pneumothorax will recheck a chest x-ray again today plan to ambulate discharge vital signs stable Qualifiers: Encounter type: subsequent encounter
[2023-08-16] MEDS ORDERED: TRAMADOL 37.5mg/APAP 325mg PER TAB PO PRN (09:30)
--- NOTE | 2023-08-16 13:20 | P.DS ---
Admission Date: 08/14/23 Discharge Date: 08/17/23 Disposition: ROUTINE DISCHARGE Discharge Condition: FAIR Reason for Admission: Multiple rib fractures Brief History of Present Illness: 78 yrs old Male with past medical history of subarachnoid hemorrage 10/11/16; subdural hematoma; 12/02/16; Hypertension; High hb Cholesterol; Brain Bleeds x4; CVA; Dementia; GERD; Seizures; TIA; presents to the emergency room with complaints of Cough, Abdominal Pain. is at bedside is primary historian reports recent fall 1 week ago, with rib fracures. She reports left flank brusing that is getting probressive worse. He denies fe chandni, NVD, edema, shortness of breath. Plan to admit for LLL pneumonia, left hemothorax, multible rib fractures, frequent falls. CXR IMPRESSION: Progressive left basilar airspace opacity, may represent atelectasis or pneumonia. CT ABD/Pelvis IMPRESSION: Multiple left lower rib fractures as above, with developing left hemothorax.No other acute process within the abdomen and pelvis Lab evaluation HH 12.7/36.5, elevated left shift Neut 80.5, mild hyponatremia, 135 - Physical Exam General: Alert, In no apparent distress, Confused, Obese HEENT: Atraumatic, Normocephalic Neck: 2+ carotid pulse no bruit, JVD not distended Respiratory: Normal air movement, Diminished (LLL) Cardiovascular: Normal pulses, Regular rate/rhythm Gastrointestinal: Normal bowel sounds, Soft and benign Musculoskeletal: No clubbing, No swelling, Other (Left rib fractures ) Integumentary: No rashes, No breakdown, Other (left flank brusing) Neurological: Normal speech, Normal strength at 5/5 x4 extr, Dementia Hospital Course: Hospital course Assessment plan left lower lobe Acute hypoxic respiratory failure secondary to left lower lobe pneumonia CXR IMPRESSION: Progressive left basilar airspace opacity, may represent atelectasis or pneumonia. CT ABD/Pelvis IMPRESSION: Multiple left lower rib fractures as above, with developing left hemothorax.No other acute process within the abdomen and pelvis Lab Daily chest x-ray, serial H&H trend hemoglobin (stable HH) (CXR ray stable) IV azithromycin, IV ceftriaxone, nebs, O2 2 L keep sats greater than 92% Pulmonary consult Stable chest x-ray FINDINGS: No significant change in the relatively small left pleural effusion. Mild left basilar atelectasis. Right lung appears clear of acute infiltrate. Heart is normal size History Multiple falls Left rib fractures stable Left hemothorax stable is at bedside is primary historian reports recent fall 1 week ago, with rib fracures. She reports left flank brusing that is getting probressive worse. He denies fever, NVD, edema, shortness of breath. Plan to admit for LLL pneumonia, left hemothorax, multible rib fractures, frequent falls. 08/[address], no surgical intervention at this time, recommended daily CXR, trend PT eval, fall precaution 08/15 chest x-ray FINDINGS: Stable mild left basilar airspace opacity. Stable calcific pleural plaque. No pneumothorax or effusion. The cardiomediastinal contours are unremarkable. IMPRESSION: Stable mild left basilar airspace opacity, which may represent atelectasis or pneumonia. 08/15 PT for ambulation training, at beside Microcytic anemia stable HH 12.7/36.5,trend H&H [id number] Hematocrit 36.5 35.5 History of CVA History of TIA History of dementia History of subdural hematoma Hypertension Hyperlipidemia Seizure disorder Resume appropriate home meds Vital Signs/Physical Exam: Temp Pulse Resp BP Pulse Ox 97.3 F 66 14 133/74 93 08/16/23 08:00 08/16/23 08:00 08/16/23 08:00 08/16/23 08:00 08/16/23 08:00 Laboratory Data at Discharge: WBC 4.80 thou/uL (4.3-10.9) 08/16/23 00:56 Hgb Cancelled 08/16/23 01:20 Hct 34.8 % (39.6-49.0) L 08/16/23 00:56 Plt Count 195 thou/uL (152-406) 08/16/23 00:56 Sodium 138 mEq/L (136-145) 08/16/23 00:56 Potassium 3.8 mEq/L (3.5-5.1) 08/16/23 00:56 BUN 11 mg/dL (7-18) 08/16/23 00:56 Creatinine 1.01 mg/dL (0.70-1.30) 08/16/23 00:56 Glucose 101 mg/dL (74-106) 08/16/23 00:56 Magnesium 2.1 mg/dL (1.6-2.4) 08/16/23 00:56 Total Bilirubin 0.3 mg/dL (0.2-1.0) 08/14/23 11:10 AST 25 U/L (15-37) 08/14/23 11:10 ALT 26 U/L (16-61) 08/14/23 11:10 Alkaline Phosphatase 112 U/L (45-117) 08/14/23 11:10 Home Medications: Acetaminophen [Tylenol] 500 mg PO Q4H PRN 12/04/15 Glucosamine Sulfate 1,500 mg PO DAILY 12/04/15 Omeprazole 40 mg PO 1200 12/04/15 Metoprolol Tartrate [Lopressor*] 25 mg PO BID 6AM 6PM tab 02/09/17 PHENYTOIN ER Cap [Dilantin ER Cap*] 200 mg PO BID cap 02/09/17 Cyanocobalamin [Vitamin B-12*] 1 tab PO NOON 03/25/18 Ezetimibe 10 mg PO BEDTIME 03/25/18 Ferrous Sulfate [Feosol] 65 mg PO M,W,F 03/25/18 Atorvastatin Calcium [Lipitor] 80 mg PO BEDTIME 07/25/22 Calcium Carbonate/Vitamin D3 [Calcium 600 mg-D3 10 Mcg Sfgl] 1 each PO BID 07/25/22 Losartan Potassium [Cozaar*] 50 mg PO DAILY 07/25/22 Physician Discharge Instructions: INSTRUCTIONS: Physician Discharge Instructions: -DC IV and DC home -Follow-up with PCP in 1 to 2 weeks -Follow up with docketing specialist 1-2 weeks after discharge -Please call if any questions regarding hospital stay -Please call nursing station at [phone] if any nursing or medication que stions -Return to the emergency room if symptoms worsen Diet: ADA Activity: Fall precautions Followup: Derrek Alvarez MD [Primary Care Provider] - Time spent managing pt's care (in minutes): 55
[2023-08-16 14:12] VITALS: O2SAT 94
[2023-08-16] MEDS: QUETIAPINE 25 MG TAB PO SCH (21:18)
[2023-08-17] MEDS ORDERED: MORPHINE 4 MG/ML SYR IV ONE (02:36)
[2023-08-17] MEDS: MORPHINE 4 MG/ML SYR IV PRN (02:57)
[2023-08-17 06:51] LABS: Absolute Lymphocytes (CBC) 0.6 K/uL (0.7-4.9); Hematocrit 35.8 % (39.6-49.0); Lymphocytes % 12.7 % (15.3-44.8); MCV 90.1 fL (80-100); MPV 6.7 fL (7.6-11.3); Platelets 222 thou/uL (152-406); RBC Red Blood Cell Count 3.97 M/uL (4.33-5.43)
[2023-08-17 07:06] LABS: Magnesium 2.1 mg/dL (1.6-2.4); Potassium 4.1 mEq/L (3.5-5.1)
--- NOTE | 2023-08-17 08:30 | P.PN ---
Subjective Date of Service: 08/17/23 Chief Complaint: 78 yrs old Male with past medical history of subarachnoid hemorra Alert, at bedside, reports feeling better, pain controlled with p.o. meds - Physical Exam General: Alert, In no apparent distress, Confused, Obese HEENT: Atraumatic, Normocephalic Neck: 2+ carotid pulse no bruit, JVD not distended Respiratory: Normal air movement, Diminished (LLL) Cardiovascular: Normal pulses, Regular rate/rhythm Gastrointestinal: Normal bowel sounds, Soft and benign Musculoskeletal: No clubbing, No swelling, Other (Left rib fractures ) Integumentary: No rashes, No breakdown, Other (left flank brusing) Neurological: Normal speech, Normal strength at 5/5 x4 extr, Dementia Physical Examination - Vital Signs Temperature: 98.2 F Blood Pressure: 101/62 Pulse: 90 Respirations: 18 Pulse Ox (%): 93 Assessment And Plan - Plan Assessment plan left lower lobe Acute hypoxic respiratory failure secondary to left lower lobe pneumonia CXR IMPRESSION: Progressive left basilar airspace opacity, may represent atelectasis or pneumonia. CT ABD/Pelvis IMPRESSION: Multiple left lower rib fractures as above, with developing left hemothorax.No other acute process within the abdomen and pelvis Lab Daily chest x-ray, serial H&H trend hemoglobin IV azithromycin, IV ceftriaxone, nebs, O2 2 L keep sats greater than 92% elevated left shift Neut 80.5, Multiple falls Left rib fractures Left hemothorax left orbital floor and lateral maxillary wall fracture. is at bedside is primary historian reports recent fall 1 week ago, with rib fracures. She reports left flank brusing that is getting probressive worse. He denies fever, NVD, edema, shortness of breath. Plan to admit for LLL pneumonia, left hemothorax, multible rib fractures, frequent falls. 08/[address], no surgical intervention at this time, recommended daily CXR, trend HH PT eval, fall precaution Surgery to eval hemothorax ENT to eval facial fractures prior to discharge 08/15 chest x-ray FINDINGS: Stable mild left basilar airspace opacity. Stable calcific pleural plaque. No pneumothorax or effusion. The cardiomediastinal contours are unremarkable. IMPRESSION: Stable mild left basilar airspace opacity, which may represent atelectasis or pneumonia. 08/[address] scan of the head and cervical spine IMPRESSION: No acute intracranial or cervical spine findings. Dense contents within the left maxillary sinus could be inspissated secretions or hemorrhage. Subacute left orbital floor and lateral maxillary wall fracture. Normal ocular motor function 08/15 PT eval pending I assisted patient up in bed patient had moderate generalized weakness, unsteady gait, fall risk Microcytic anemia HH 12.7/36.5,trend HH H&H [id number] Hematocrit 36.5 35.5 History of CVA History of TIA History of dementia History of subdural hematoma Hypertension Hyperlipidemia Seizure disorder Resume appropriate home meds Diet cardiac Full code DVT SCDs Physician Review: Patient Assessed, Agree with Above Assessment and Plan
--- NOTE | 2023-08-17 09:37 | RAD REPORT ---
EXAM DESCRIPTION: Edgar Pa And Lat (2 Views)08/17/2023 8:22 am CLINICAL HISTORY: Pneumothorax COMPARISON: August 16, 2023 FINDINGS: No significant change in the relatively small left pleural effusion. Mild left basilar at electasis. Right lung appears clear of acute infiltrate. Heart is normal size
--- NOTE | 2023-08-17 14:33 | CON ---
Date of Consultation: 08/17/2023 Chief Complaint: Forehead pain. History Of Present Illness: Patient is a pleasant 78-year-old male who sustained a fall on 08/05/2023 and presented to the emergency room and then was recently discharged, who returns now to the emergency room with significant flank and chest pain. He was admitted for left hemothorax and pn eumonia and imaging of the head and C-spine demonstrated multiple sinuses with opacification as well as a left inferior orbital floor fracture and a left maxillary wall fracture. I was consulted for fu rther evaluation and management. Upon arrival to bedside, patient is in no acute distress. He has a significant headache the night before involving his forehead, right worse than left, but he states t hat, that pain has subsided today. He denies any intranasal bleeding or bilateral visual disturbance including diplopia or blurred vision. In addition, he does have mild left lateral cheek discomfort, but no intraoral or jaw pain. No other ENT complaints today. Past Medical And Surgical History: Multiple falls, seizures, hypertension, TIA, GERD, sleep apnea, h igh cholesterol, history of subdural hematoma, inguinal hernia, multiple brain bleeds and subarachnoi d hemorrhages, CVA, DVT bilateral legs, bilateral foot surgery, tonsillectomy, appendectomy, right sh oulder replacement, vasectomy, inguinal hernia repair, craniotomy x2, IVC filter placement. Social History: Denies alcohol, drugs, and has mild caffeine use. Allergies: LORAZEPAM, ASPIRIN, NSAIDS. Home Medications: Tylenol, glucosamine, omeprazole, metoprolol, Dilantin, cyanocobalamin, ezetimibe, ferrous sulfate, atorvastatin, calcium, calcium carbonate, losartan, potassium. Review of Systems: Eyes: Negative for drainage, blurred or double vision. General: Negative for lethargy, fatigue. Ears: Negative for otalgia, otorrhea, or hearing loss. Nose: Negative for epistaxis, nasal congestion, postnasal drip, or obstruction. Oral Cavity: Negative for sore throat, dysphagia. Head and Face: Positive for bilateral forehead pain, right greater than left and mild left lateral c heek pain. Neck: Negative for swelling or lymphadenopathy. Physical Examination: Vital Signs: Stable. General: He is awake and alert and in no apparent distress. Head and Face: Mild fading ecchymosis noted of left malar cheek extending into the left lower eyelid . Tenderness to palpation of the right frontal bone and left lateral cheek. Eyes: PERRLA/EOMI. No evidence of proptosis or enophthalmos. Ears: Deferred. Nose: Caudal deflection of the septum with dry intranasal mucosa. No evidence of active bleeding or blood clots. Oral Cavity: No evidence of posterior oropharyngeal bleeding or blood clots. Uvula is midline. [address] st oral mucosa. Neck: Supple. Trachea midline. Laboratory Data: CT scan 08/15/2023 of head and C-spine demonstrated opacification of bilateral sphe noid, right frontal recess, and left maxillary sinus opacification, most likely dried blood. Patient also has left infraorbital floor fracture with a 2 mm deflection of the floor into the left maxillar y sinus, but no evidence of entrapment of inferior rectus, which is visualized medially. Patient has a nondisplaced left lateral maxillary wall fracture. Diagnoses: 1.Left infraorbital floor and left lateral maxillary wall fractures. 2.Acute sinusitis due to trauma. Recommendations: 1.Start nasal saline spray 2 sprays each nostril 2-3 times daily. Patient has already been on a reg imen of Rocephin and Zithromax and patient is afebrile today. 2.Follow up in the outpatient setting in several weeks. 3.Conservative management of the fractures. No surgery needed at this time. RINA/BERKLEY Voice ID: [id number] Report ID: [id number]
[2023-08-17 15:02] VITALS: BP 139/91; TEMP 98.1
== END 2023-08-17 14:00 | disposition home or self-care (01) | DRG 183 ==
LOC: ER 10:16 → ERHOLD 14:51 → 2ND 17:58
PROVIDERS: ADMIT Hospitalist; ATTEND Internal Medicine
DX: S22.42XA Multiple fractures of ribs, left side, initial encounter for closed fracture (principal); J18.9 Pneumonia, unspecified organism; J96.01 Acute respiratory failure with hypoxia; S02.32XA Fracture of orbital floor, left side, initial encounter for closed fracture; S02.842A Fracture of lateral orbital wall, left side, initial encounter for closed fracture; E87.1 Hypo-osmolality and hyponatremia; J94.2 Hemothorax; F05 Delirium due to known physiological condition; I10 Essential (primary) hypertension; J01.90 Acute sinusitis, unspecified; E78.5 Hyperlipidemia, unspecified; D50.9 Iron deficiency anemia, unspecified; K21.9 Gastro-esophageal reflux disease without esophagitis; G40.909 Epilepsy, unspecified, not intractable, without status epilepticus; G31.83 Neurocognitive disorder with Lewy bodies; F02.80 Dementia in other diseases classified elsewhere, unspecified severity, without behavioral disturbance, psychotic disturbance, mood disturbance, and anxiety; R29.6 Repeated falls; Z88.2 Allergy status to sulfonamides; Z88.8 Allergy status to other drugs, medicaments and biological substances; Z86.73 Personal history of transient ischemic attack (TIA), and cerebral infarction without residual deficits; Z11.52 Encounter for screening for COVID-19; Z91.81 History of falling; Z90.49 Acquired absence of other specified parts of digestive tract; Z96.611 Presence of right artificial shoulder joint; Z86.718 Personal history of other venous thrombosis and embolism; Z79.899 Other long term (current) drug therapy; W19.XXXA Unspecified fall, initial encounter; Y93.9 Activity, unspecified; Y92.9 Unspecified place or not applicable; Y99.9 Unspecified external cause status
CPT/HCPCS: 36415; 70450; 71045; 71046; 71250; 72125; 74177; 80048; 80053; 83735; 85018; 85025; 87804; 87811; 93005; 94010; 94640; 94760; 96374; 96375; 97116; 97161; 97530; 99285; J0696; J1100; J7030; J7050; J7613; Q9967

== ENCOUNTER → 2023-09-05 | Emergency (ER) | payer OTHER ==
[~2023-09-05] MED LIST: METOCLOPRAMIDE 10 MG/2mL INJ ONE; MORPHINE 4 MG/ML SYR ONE; NA CHLORIDE 0.9% 1,000 ML ONE
[2023-09-05 04:14] LABS: Absolute Lymphocytes (CBC) 0.8 K/uL (0.7-4.9); Hematocrit 36.6 % (39.6-49.0); Lymphocytes % 23.9 % (15.3-44.8); MCV 90.6 fL (80-100); MPV 7.3 fL (7.6-11.3); Platelets 119 thou/uL (152-406); RBC Red Blood Cell Count 4.04 M/uL (4.33-5.43)
[2023-09-05 04:32] LABS: Potassium 3.9 mEq/L (3.5-5.1); Troponin High Sensitivity 6.3 pg/mL (<58.9)
--- NOTE | 2023-09-05 06:39 | EDPHYS ---
Physician Documentation [facility] Name: Nelson Murillo Age: 78 yrs Sex: Male : 1945 Arrival Date: 09/05/2023 Time: 03:46 Bed 4 Private MD: ED Physician Madhu De Los Santos HPI: 09/05 03:48 This 78 yrs old Male presents to ER via EMS with complaints of chest pain. ec2 03:48 Patient arrives today for sudden onset chest pain that started just prior to arrival. ec2 Patient reports that the pain woke him from sleep. Patient reports difficulty breathing. States no history of ACS. States that he also has a history of hyperlipidemia. Patient was given nitroglycerin by EMS, patient reports improvement in symptoms after the nitroglycerin administration.. 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 - Social history:: Smoking status: Patient denies any tobacco usage or history of. ROS: 03:48 Constitutional: as per hpi ec2 Exam: 03:48 Constitutional: GEN: NAD, uncomfortable individual Head: atraumatic Eyes: EOMI Ears: ec2 External ears are normal. CV: regular rate LUNGS: no respiratory distress ABD: non-distended SKIN: no evidence of rashes MSK: no evidence of trauma NEURO: moves all extremities equally Vital Signs: 03:47 BP 119 / 66; Pulse 79; Resp 17 S; Temp 98.4(O); Pulse Ox 98% on R/A; Weight 77.56 kg; ha1 Height 5 ft. 9 in. ; 04:30 BP 127 / 67; Pulse 69; Resp 17 S; Pulse Ox 98% on R/A; ha1 05:05 BP 134 / 86; Pulse 80; Resp 17 S; Pulse Ox 99% on R/A; ha1 06:05 BP 134 / 89; Pulse 76; Resp 17 S; Pulse Ox 98% on R/A; ha1 03:47 Body Mass Index 25.25 (77.56 kg, 175.26 cm) ha1 MDM: 03:47 Patient medically screened. ec2 03:48 Data reviewed:. ED course: Patient arrives today for evaluation of chest pain. ec2 Examination remarkable for well-appearing nontoxic individual is otherwise in no acute distress. Will obtain lab work, EKG, chest x-ray, CT scan of the chest. Currently considering process such as ACS, dissection, lower suspicion for PE. Will give the patient morphine as well as Reglan and crystalloid.. 03:49 ED course: EKG independently reviewed and interpreted by me, shows normal sinus rhythm, ec2 rate of 83, no acute ST segment elevations, nonconcerning intervals. . 04:12 ED course: Chest x-ray independently reviewed and interpreted by me, shows no acute ec2 intrathoracic process.. 04:37 ED course: Metabolic profile is reassuring, CBC shows slight leukopenia, slight anemia, ec2 troponin is within normal ranges, BMP within normal ranges. . 05:56 ED course: CT dissection protocol negative for acute pathology.. ec2 06:36 ED course: Repeat troponin is static. . ec2 06:38 ED course: I used shared decision-making with the patient and the and discussed ec2 possible inpatient hospitalization versus outpatient workup with primary care doctor and ultimately we decided on return to home. Patient discharged home. Return precautions given.. 09/05 03:48 Order name: Basic Metabolic Panel; Complete Time: 04:37 ec2 09/05 03:48 Order name: CBC with Diff; Complete Time: 04:37 ec2 09/05 03:48 Order name: NT PRO-BNP; Complete Time: 04:37 ec2 09/05 03:48 Order name: Troponin HS; Complete Time: 04:37 ec2 09/05 05:56 Order name: Troponin High Sensitivity; Complete Time: 06:36 ec2 09/05 03:48 Order name: XRAY Chest (1 view) ec2 09/05 03:58 Order name: Angio Aorta For Dissection EDDC 09/05 03:48 Order name: EKG; Complete Time: 03:48 ec2 09/05 03:48 Order name: Cardiac monitoring; Complete Time: 03:51 ec2 09/05 03:48 Order name: EKG - Nurse/Tech; Complete Time: 03:51 ec2 09/05 03:48 Order name: IV Saline Lock; Complete Time: 03:51 ec2 09/05 03:48 Order name: Labs collected and sent; Complete Time: 03:52 ec2 09/05 03:48 Order name: O2 Per Protocol; Complete Time: 03:52 ec2 09/05 03:48 Order name: O2 Sat Monitoring; Complete Time: 03:52 ec2 09/05 05:56 Order name: EKG - Nurse/Tech; Complete Time: 06:00 ec2 Administered Medications: 04:07 Drug: NS 0.9% IV 1000 ml IV at 1 bolus Per protocol; 1000 mL bolus Route: IV; Rate: 1 ha1 bolus; Site: left antecubital; 06:51 Follow up: Response: No adverse reaction; IV Status: Completed infusion; IV Intake: ha1 1000ml 04:07 Drug: metoCLOPramide IVP 10 mg IVP once; over 1 to 2 minutes Route: IVP; Site: left ha1 antecubital; 04:30 Follow up: Response: No adverse reaction; Marked relief of symptoms ha1 04:09 Drug: morphine IVP or IV 4 mg IVP once over 4 mins Route: IVP; Infused Over: 4 mins; ha1 Site: left antecubital; 04:30 Follow up: Response: No adverse reaction; Pain is decreased; RASS: Alert and Calm (0) ha1 Disposition Summary: 09/05/23 06:38 Discharge Ordered Notes: Location: Home ec2 Condition: Stable ec2 Diagnosis - Chest pain, unspecified ec2 Followup: ec2 - With: Private Physician - When: - Reason: Recheck today's complaints Discharge Instructions: - Discharge Summary Sheet ec2 - Nonspecific Chest Pain, Adult ec2 Forms: - Medication Reconciliation Form ec2 - Thank You Letter ec2 - Antibiotic Education ec2 - Prescription Opioid Use ec2 - Patient Portal Instructions ec2 - Leadership Thank You Letter ec2 Signatures: Dispatcher [employer] Danica Chen RN RN ha1 Madhu De Los Santos MD MD ec2 Corrections: (The following items were deleted from the chart) 03:49 03:48 Constitutional: GEN: NAD Head: atraumatic Eyes: EOMI Ears: External ears are ec2 normal. CV: regular rate LUNGS: no respiratory distress ABD: non-distended SKIN: no evidence of rashes MSK: no evidence of trauma NEURO: moves all extremities equally ec2 03:58 03:48 Chest Angio+CT.RAD.BRZ ordered. MAURY MENDIOLA
--- NOTE | 2023-09-05 06:39 | ER ---
Nurse's Notes [facility] Name: Nelson Murillo Age: 78 yrs Sex: Male : 1945 Arrival Date: 09/05/2023 Time: 03:46 Bed 4 Private MD: Diagnosis: Chest pain, unspecified Presentation: 09/05 03:47 Chief complaint: EMS states: 78 year old male reports chest pain that started suddenly ha1 . 1 of Nitroglycerin was given. 03:47 Coronavirus screen: Vaccine status:. Ebola Screen: No symptoms or risks identified at [facility] this time. Initial Sepsis Screen: Does the patient meet any 2 criteria? Does the patient have a suspected source of infection? No. Patient's initial sepsis screen is negative. Risk Assessment: Do you want to hurt yourself or someone else? Patient reports no desire to harm self or others. Onset of symptoms was September 05, 2023. 03:47 Method Of Arrival: EMS: [facility] 03:47 Acuity: HILARIA 3 ha1 Triage Assessment: 03:55 General: Appears uncomfortable, Behavior is cooperative, anxious. Pain: Complains of ha1 pain in chest Pain does not radiate. Pain currently is 9 out of 10 on a pain scale. Quality of pain is described as pressure, throbbing, Pain began gradually, 1 hour ago. Neuro: Level of Consciousness is awake, alert, obeys commands, Oriented to person, place, time, situation. Cardiovascular: Reports chest pain, Heart tones S1 S2 present Capillary refill < 3 seconds Patient's skin is warm and dry. Rhythm is sinus rhythm. Respiratory: Airway is patent Respiratory effort is even, unlabored, Respiratory pattern is regular, symmetrical. GI: No signs and/or symptoms were reported involving the gastrointestinal system. : No signs and/or symptoms were reported regarding the genitourinary system. Derm: Skin is pink, warm \T\ dry. Musculoskeletal: Circulation, motion, and sensation intact. Range of motion: intact in all extremities. 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 - Social history:: Smoking status: Patient denies any tobacco usage or history of. Screenin:50 [facility] ED Fall Risk Assessment (Adult) History of falling in the last 3 months, ha1 including since admission No falls in past 3 months (0 pts) Confusion or Disorientation No (0 pts) Intoxicated or Sedated No (0 pts) Impaired Gait No (0 pts) Mobility Assist Device Used No (0 pt) Altered Elimination No (0 pt) Score/Fall Risk Level 0 - 2 = Low Risk Oriented to surroundings, Maintained a safe environment, Hourly rounding (assess needs \T\ fall precautionary measures) done. Abuse screen: Denies threats or abuse. Denies injuries from another. Nutritional screening: No deficits noted. Tuberculosis screening: No symptoms or risk factors identified. Assessment: 03:50 General: see triage assessment . ha1 04:50 Reassessment: Patient and/or family updated on plan of care and expected duration. Pain ha1 level reassessed. Patient is alert, oriented x 3, equal unlabored respirations, skin warm/dry/pink. Patient states feeling better. Patient states symptoms have improved. 05:50 Reassessment: Patient and/or family updated on plan of care and expected duration. Pain ha1 level reassessed. Patient is alert, oriented x 3, equal unlabored respirations, skin warm/dry/pink. pain 3/10 Patient states feeling better. Patient states symptoms have improved. 06:49 Reassessment: Patient and/or family updated on plan of care and expected duration. Pain ha1 level reassessed. Patient is alert, oriented x 3, equal unlabored respirations, skin warm/dry/pink. Vital Signs: 03:47 BP 119 / 66; Pulse 79; Resp 17 S; Temp 98.4(O); Pulse Ox 98% on R/A; Weight 77.56 kg; ha1 Height 5 ft. 9 in. ; 04:30 BP 127 / 67; Pulse 69; Resp 17 S; Pulse Ox 98% on R/A; ha1 05:05 BP 134 / 86; Pulse 80; Resp 17 S; Pulse Ox 99% on R/A; ha1 06:05 BP 134 / 89; Pulse 76; Resp 17 S; Pulse Ox 98% on R/A; ha1 03:47 Body Mass Index 25.25 (77.56 kg, 175.26 cm) ha1 ED Course: 03:46 Patient arrived in ED. ec2 03:47 Madhu De Los Santos MD is Attending Physician. ec2 03:47 Patient has correct armband on for positive identification. Placed in gown. Bed in low ha1 position. Call light in reach. Side rails up X 1. Adult w/ patient. 03:47 Arm band placed on right wrist. ha1 03:55 Triage completed. ha1 03:59 XRAY Chest (1 view) In Process Unspecified. EDMS 04:00 Maintain EMS IV. Dressing intact. Good blood return noted. Site clean \T\ dry. Gauge \T\ walters 1 site: 20 bairon left AC. 05:06 Angio Aorta For Dissection In Process Unspecified. EDMS 06:50 No provider procedures requiring assistance completed. IV discontinued, intact, ha1 bleeding controlled, No redness/swelling at site. Pressure dressing applied. 06:50 Provided Education on: follow up with PCP. [facility] Administered Medications: 04:07 Drug: NS 0.9% IV 1000 ml IV at 1 bolus Per protocol; 1000 mL bolus Route: IV; Rate: 1 ha1 bolus; Site: left antecubital; 06:51 Follow up: Response: No adverse reaction; IV Status: Completed infusion; IV Intake: ha1 1000ml 04:07 Drug: metoCLOPramide IVP 10 mg IVP once; over 1 to 2 minutes Route: IVP; Site: left ha1 antecubital; 04:30 Follow up: Response: No adverse reaction; Marked relief of symptoms [facility] 04:09 Drug: morphine IVP or IV 4 mg IVP once over 4 mins Route: IVP; Infused Over: 4 mins; ha1 Site: left antecubital; 04:30 Follow up: Response: No adverse reaction; Pain is decreased; RASS: Alert and Calm (0) ha1 Medication: 04:16 VIS not applicable for this client. ha1 Intake: 06:51 IV: 1000ml; Total: 1000ml. ha1 Outcome: 06:38 Discharge ordered by . ec2 06:50 Discharged to home via wheelchair, with family, 1 06:50 Condition: stable 06:50 Discharge instructions given to patient, family, Instructed on discharge instructions, follow up and referral plans. Demonstrated understanding of instructions, follow-up care, 06:51 Patient left the ED. 1 Signatures: Dispatcher [employer] Danica Chen RN RN 1 Madhu De Los Santos MD MD ec2
[2023-09-05 11:04] VITALS: BP 134/89; TEMP 98.4; O2SAT 98
--- NOTE | 2023-09-05 14:20 | RAD REPORT ---
EXAM DESCRIPTION: CT - Angio Aorta For Dissection - 09/05/2023 6:31 am CLINICAL HISTORY: CHEST PAIN COMPARISON: None. TECHNIQUE: CT CHEST ABDOMEN PELVIS ANGIOGRAPHY WITH IV CONTRAST on 09/05/2023 3:48 AM RADIOLOGY INTERVENTIONAL PHYSICIAN. MIPS recon structions were generated. This exam was performed according to our departmental dose-optimization program, which includes autom ated exposure control, adjustment of the mA and/or kV according to patient size and/or use of iterati ve reconstruction technique. FINDINGS: Vascular: Thoracic aorta is mildly calcified without aneurysm or dissection. Pulmonary art eries are poorly opacified with no large central filling defects. Abdominal aorta is moderately calci fied without aneurysm. Pelvic arteries are patent without aneurysm or occlusion. Chest: The heart is normal in size. There is no pericardial effusion. Intrathoracic lymph nodes are n ot enlarged. There are multiple bilateral calcified pleural plaques. There is mild bibasilar bronchiectasis. Centr al airways are patent. Lungs are clear with no consolidation, mass or interstitial lung disease. Abdomen: The liver is normal in appearance. There is no biliary dilatation. There is a small hiatal h ernia. Gallbladder is normal in appearance. IVC filter is in place. The pancreas and spleen are юляи l in appearance. The adrenal glands and kidneys are unremarkable. There is no free air. There is no retroperitoneal adenopathy. Pelvis: There is no bowel obstruction. Urinary bladder is unremarkable. There is no free fluid. Appen sophia is not clearly seen. Skeleton: There are multiple old appearing left rib fractures. IMPRESSION: No definite acute process. Electronically signed by: Bo Woods MD 09/05/2023 05:40 AM RADIOLOGY INTERVENTIONAL PHYSICIAN Due to temporary technical issues with the PACS/Fluency reporting system, reports are being signed by the in house radiologist without review as a courtesy to ensure prompt reporting. The interpreting r adiologist is fully responsible for the content of the report.
--- NOTE | 2023-09-05 14:21 | RAD REPORT ---
EXAM DESCRIPTION: RAD - Chest Single View - 09/05/2023 3:57 am CLINICAL HISTORY: CHEST PAIN COMPARISON: 08/14/2023 FINDINGS: Single frontal radiograph view of the chest. Cardiomediastinal silhouette: Atherosclerotic calcification of thoracic aorta. Heart is not enlarged. Lungs: No consolidation, pneumothorax, or pleural effusion. Stable calcified pleural plaques. Leads o verlie the chest. Bones: No acute osseous abnormality. Degenerative change of the spine. Right shoulder arthroplasty. Upper abdomen: No abnormality identified. IMPRESSION: 1. No acute pulmonary process identified. Electronically signed by: Matteo Fagan DO 09/05/2023 04:17 AM MECHANICAL ENGINEERING INTERN M Due to temporary technical issues with the PACS/Fluency reporting system, reports are being signed by the in house radiologist without review as a courtesy to ensure prompt reporting. The interpreting r adiologist is fully responsible for the content of the report.
--- NOTE | 2023-09-09 17:10 | EKG ---
Test Date: 2023-09-05 Test Time: 03:47:27 Family Literacy Coordinator: RV MEASUREMENT RESULTS: Intervals: Rate: 83 HI: 202 QRSD: 76 QT: 360 QTc: 423 [place]: P: 82 HI: 202 QRS: 76 T: 81 INTERPRETIVE STATEMENTS: Normal sinus rhythm Normal ECG Compared to ECG 08/14/2023 11:05:51 No significant changes Electronically Signed On 09-09-23 16:57:01 FINANCE ADVISOR by Edgar Mccormick
--- NOTE | 2023-09-09 17:10 | EKG ---
Test Date: 2023-09-05 Test Time: 05:50:12 Leasing Associate: ALEJA MEASUREMENT RESULTS: Intervals: Rate: 78 OH: 188 QRSD: 82 QT: 380 QTc: 433 [place]: P: 74 OH: 188 QRS: 44 T: 63 INTERPRETIVE STATEMENTS: Normal sinus rhythm Normal ECG Compared to ECG 08/14/2023 11:05:51 No significant changes Electronically Signed On 09-09-23 16:56:58 MOTORCYCLE TECHNICIAN by Edgar Mccormick
== END ==
LOC: ER 03:46
DX: R07.9 Chest pain, unspecified (principal); E78.5 Hyperlipidemia, unspecified; F03.90 Unspecified dementia, unspecified severity, without behavioral disturbance, psychotic disturbance, mood disturbance, and anxiety; K21.9 Gastro-esophageal reflux disease without esophagitis; E78.00 Pure hypercholesterolemia, unspecified; I10 Essential (primary) hypertension; Z86.73 Personal history of transient ischemic attack (TIA), and cerebral infarction without residual deficits
CPT/HCPCS: 96361; 93005 ×2; 85025; 80048; 36415; 84484 ×2; 83880; 71275; 74175; 71045; 96375; 96374; 99284; Q9967; J2765; J7030

== ENCOUNTER → 2023-09-14 | Emergency (ER) | payer OTHER ==
[~2023-09-14] MED LIST changes: +IPRATROPIUM BROM 0.5MG/2.5ML ONE; +LEVALBUTEROL 1.25 MG/3 ML NEB ONE; +Levofloxacin500mg IV 500 MG/100 ML BAG IV ONE; -METOCLOPRAMIDE 10 MG/2mL INJ ONE; -MORPHINE 4 MG/ML SYR ONE; -NA CHLORIDE 0.9% 1,000 ML ONE
[2023-09-14 04:00] LABS: Absolute Lymphocytes (CBC) 0.5 K/uL (0.7-4.9); Hematocrit 34.2 % (39.6-49.0); Lymphocytes % 10.6 % (15.3-44.8); MCV 91.3 fL (80-100); MPV 7.5 fL (7.6-11.3); Platelets 120 thou/uL (152-406); RBC Red Blood Cell Count 3.75 M/uL (4.33-5.43)
[2023-09-14 04:02] LABS: Protime INR 1.07
[2023-09-14 04:19] LABS: ALT/SGPT 29 U/L (16-61); AST/SGOT 20 U/L (15-37); Alkaline Phosphatase 135 U/L (45-117); BUN Blood Urea Nitrogen 16 mg/dL (7-18); Bicarbonate 27 mEq/L (21-32); Bilirubin Total 0.4 mg/dL (0.2-1.0); Glomerular Filtration Rate 71 ml/min (=/>90); Glucose Level 108 mg/dL (74-106); Potassium 3.9 mEq/L (3.5-5.1); Sodium Level 137 mEq/L (136-145)
[2023-09-14 04:20] LABS: Albumin 3.3 g/dL (3.4-5.0); Bilirubin Direct < 0.1 mg/dL (0-0.2); Bilirubin Indirect, Calculated ND mg/dL (0.2-0.8); Magnesium 2.1 mg/dL (1.6-2.4); NT PRO-BNP 130 pg/mL (<450); Protein, Total 6.5 g/dL (6.4-8.2); Troponin High Sensitivity 5.9 pg/mL (<58.9)
[2023-09-14 04:40] LABS: SARS-COV-2 RT PCR NEGATIVE (NEGATIVE)
[2023-09-14 05:50] LABS: Specific Gravity 1.017 (1.005-1.030); Urine Bacteria None Seen /HPF (<20); Urine Bilirubin NEGATIVE (Negative); Urine Blood Trace (Negative); Urine Clarity Clear (Clear); Urine Color Light-Yellow (Yellow); Urine Glucose NEGATIVE (Negative); Urine Mucus Slight /HPF (None Seen); Urine Protein NEGATIVE (Negative); Urine RBC <5 /HPF (None Seen); Urine Urobilinogen Normal (Normal); Urine pH 6.5 (5.0-7.0)
--- NOTE | 2023-09-14 05:51 | ER ---
Nurse's Notes [facility] Name: Nelson Murillo Age: 78 yrs Sex: Male : 1945 Arrival Date: 09/14/2023 Time: 02:53 Bed 15 Private MD: Diagnosis: Acute upper respiratory infection, unspecified;Cough Presentation: 09/14 03:05 Chief complaint: Patient states: I had a coughing fit earlier around 8pm and got red in jb4 the face. Now I feel a little short of breath. I am also having LLQ pain. Coronavirus screen: At this time, the client does not indicate any symptoms associated with coronavirus-19. Ebola Screen: No symptoms or risks identified at this time. Initial Sepsis Screen: Does the patient meet any 2 criteria? No. Patient's initial sepsis screen is negative. Does the patient have a suspected source of infection? No. Patient's initial sepsis screen is negative. Risk Assessment: Do you want to hurt yourself or someone else? Patient reports no desire to harm self or others. Onset of symptoms was September 13, 2023. Transition of care: patient was not received from another setting of care. 03:05 Method Of Arrival: Ambulatory jb4 03:05 Acuity: HILARIA 3 jb4 Triage Assessment: 06:12 General: Appears in no apparent distress. Respiratory: Reports shortness of breath at rv rest Onset: The symptoms/episode began/occurred suddenly, the patient has mild shortness of breath. 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 - Social history:: Smoking status: Patient denies any tobacco usage or history of. - Family history:: not pertinent. Screenin:30 [facility] ED Fall Risk Assessment (Adult) History of falling in the last 3 months, rv including since admission No falls in past 3 months (0 pts) Score/Fall Risk Level 0 - 2 = Low Risk Oriented to surroundings, Maintained a safe environment, Educated pt \T\ family on fall prevention, incl call for assistance when getting out of bed, Assessed \T\ reinforced patient's understanding of fall precautions. Abuse screen: Denies threats or abuse. Denies injuries from another. Nutritional screening: No deficits noted. Tuberculosis screening: No symptoms or risk factors identified. Assessment: 03:30 General: Appears comfortable, Behavior is calm, cooperative. rv 03:30 Pain: Denies pain. Neuro: Level of Consciousness is awake, alert, obeys commands, rv Oriented to person, place, time, situation. Cardiovascular: Capillary refill < 3 seconds Patient's skin is warm and dry. Rhythm is regular. Respiratory: Airway is patent Respiratory effort is even, labored, Breath sounds with wheezes bilaterally. GI: No signs and/or symptoms were reported involving the gastrointestinal system. : No signs and/or symptoms were reported regarding the genitourinary system. Derm: Skin is intact. Vital Signs: 03:05 BP 158 / 94; Pulse 80; Resp 16; Temp 98.1(TE); Pulse Ox 97% on R/A; Weight 83.91 kg jb4 (R); Height 5 ft. 8 in. (R); 03:30 BP 137 / 74; Pulse 73; Resp 14; Pulse Ox 97% on R/A; rv 04:30 BP 143 / 83; Pulse 74; Resp 16; Temp 98; Pulse Ox 100% on R/A; rv 06:12 BP 136 / 86; Pulse 74; Resp 15; Temp 98.5; Pulse Ox 99% on R/A; rv 03:05 Body Mass Index 28.13 (83.91 kg, 172.72 cm) jb4 ED Course: 02:56 Patient arrived in ED. ag3 03:04 Claude Turner MD is Attending Physician. dariel 03:07 Triage completed. jb4 03:07 Arm band placed on right wrist. jb4 03:20 No provider procedures requiring assistance completed. Inserted saline lock: 20 gauge rv in right forearm, using aseptic technique. Blood collected. 03:30 Patient has correct armband on for positive identification. Client placed on continuous rv cardiac and pulse oximetry monitoring. NIBP monitoring applied. campus monitor on. 03:31 XRAY Chest (1 view) In Process Unspecified. EDMS 03:35 Inserted saline lock: 20 gauge in left forearm, using aseptic technique. Blood rv collected. 03:49 Saji Meza, RN is Primary Nurse. rv 05:15 Chest Abdomen Pelvis Wo Con CT In Process Unspecified. EDMS 05:50 Cliff Alvarez MD is Referral Physician. dariel 06:11 IV discontinued, intact, bleeding controlled, No redness/swelling at site. Pressure rv dressing applied. Administered Medications: 04:23 Not Given (Duplicate Order): atropine0.5 mg IVP once dariel 04:32 Drug: levofloxacin IVPB 500 mg 100 ml IVPB once over 60 mins Volume: 100 ml; Route: rv IVPB; Infused Over: 60 mins; Site: right forearm; 06:13 Follow up: Response: No adverse reaction; IV Status: Completed infusion rv 04:33 Drug: Levalbuterol Inhalation 1.25 mg Inhalation once Route: Inhalation; rv 06:13 Follow up: Response: No adverse reaction rv 05:24 Drug: Ipratropium Inhalation Aerosol 0.5 mg Inhalation once Route: Inhalation; jb4 06:13 Follow up: Response: No adverse reaction rv 05:24 Drug: Levalbuterol Inhalation 1.25 mg Inhalation once Route: Inhalation; jb4 06:13 Follow up: Response: No adverse reaction rv 06:14 Not Given (not appropriate at this timee): ns 0.9% 1000 ml IV at 125 ml/hr continuous rv Medication: 03:30 VIS not applicable for this client. rv Outcome: 05:51 Discharge ordered by . dariel 06:12 Discharged to home ambulatory, rv 06:12 Condition: good 06:12 Discharge instructions given to patient, Instructed on discharge instructions, follow up and referral plans. medication usage, Demonstrated understanding of instructions, follow-up care, medications, Prescriptions given X 3, 06:14 Patient left the ED. rv Signatures: Dispatcher [employer] EDLA Claude Turner MD MD cha Bryson, James, RN RN jb4 Saji Meza, RN RN rv Sosa, Lennie ag3
--- NOTE | 2023-09-14 05:51 | EDPHYS ---
Physician Documentation [facility] Name: Nelson Murillo Age: 78 yrs Sex: Male : 1945 Arrival Date: 09/14/2023 Time: 02:53 Bed 15 Private MD: ED Physician Claude Turner HPI: 09/14 03:51 This 78 yrs old Male presents to ER via Ambulatory with complaints of dariel Breathing Difficulty, Cough. 03:51 The patient has shortness of breath at rest. Onset: The symptoms/episode began/occurred dariel yesterday, 1 day(s) ago. Duration: The symptoms are continuous, and are unchanged since they started. The patient's shortness of breath has no apparent modifying factors. Associated signs and symptoms: Pertinent positives: non-productive cough. Severity of symptoms: At their worst the symptoms were mild in the emergency department the symptoms are unchanged. The patient has not experienced similar symptoms in the past. 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 - Social history:: Smoking status: Patient denies any tobacco usage or history of. - Family history:: not pertinent. ROS: 03:53 Constitutional: Negative for fever, chills, and weight loss, Eyes: Negative for injury, dariel pain, redness, and discharge, ENT: Negative for injury, pain, and discharge, Neck: Negative for injury, pain, and swelling, Cardiovascular: Negative for chest pain, palpitations, and edema, Abdomen/GI: Negative for abdominal pain, nausea, vomiting, diarrhea, and constipation, Back: Negative for injury and pain, : Negative for injury, bleeding, discharge, and swelling, MS/Extremity: Negative for injury and deformity, Skin: Negative for injury, rash, and discoloration, Neuro: Negative for headache, weakness, numbness, tingling, and seizure, Psych: Negative for depression, anxiety, suicide ideation, homicidal ideation, and hallucinations, Allergy/Immunology: Negative for hives, rash, and allergies, Endocrine: Negative for neck swelling, polydipsia, polyuria, polyphagia, and marked weight changes, Hematologic/Lymphatic: Negative for swollen nodes, abnormal bleeding, and unusual bruising, 03:53 Respiratory: Positive for cough, shortness of breath, 03:53 Abdomen/GI: Positive for abdominal pain, of the left lower quadrant, Exam: 03:53 Constitutional: This is a well developed, well nourished patient who is awake, alert, dariel and in no acute distress. Head/Face: Normocephalic, atraumatic. Eyes: Pupils equal round and reactive to light, extra-ocular motions intact. Lids and lashes normal. Conjunctiva and sclera are non-icteric and not injected. Cornea within normal limits. Periorbital areas with no swelling, redness, or edema. ENT: Nares patent. No nasal discharge, no septal abnormalities noted. Tympanic membranes are normal and external auditory canals are clear. Oropharynx with no redness, swelling, or masses, exudates, or evidence of obstruction, uvula midline. Mucous membranes moist. Neck: Trachea midline, no thyromegaly or masses palpated, and no cervical lymphadenopathy. Supple, full range of motion without nuchal rigidity, or vertebral point tenderness. No Meningismus. Chest/axilla: Normal chest wall appearance and motion. Nontender with no deformity. No lesions are appreciated. Cardiovascular: Regular rate and rhythm with a normal S1 and S2. No gallops, murmurs, or rubs. Normal PMI, no JVD. No pulse deficits. Respiratory: Lungs have equal breath sounds bilaterally, clear to auscultation and percussion. No rales, rhonchi or wheezes noted. No increased work of breathing, no retractions or nasal flaring. Abdomen/GI: Soft, non-tender, with normal bowel sounds. No distension or tympany. No guarding or rebound. No evidence of tenderness throughout. Back: No spinal tenderness. No costovertebral tenderness. Full range of motion. Male : Normal genitalia with no discharge or lesions. Skin: Warm, dry with normal turgor. Normal color with no rashes, no lesions, and no evidence of cellulitis. MS/ Extremity: Pulses equal, no cyanosis. Neurovascular intact. Full, normal range of motion. Neuro: Awake and alert, GCS 15, oriented to person, place, time, and situation. Cranial nerves II-XII grossly intact. Motor strength 5/5 in all extremities. Sensory grossly intact. Cerebellar exam normal. Normal gait. Psych: Awake, alert, with orientation to person, place and time. Behavior, mood, and affect are within normal limits. 05:00 ECG was reviewed by the Attending Physician. [facility] 05:01 Musculoskeletal/extremity: DVT Exam: No signs of deep vein thrombosis. no pain, no dariel swelling, no tenderness, negative Homans' sign noted on exam, no appreciated bluish discoloration, no erythema, no increased warmth, Vital Signs: 03:05 BP 158 / 94; Pulse 80; Resp 16; Temp 98.1(TE); Pulse Ox 97% on R/A; Weight 83.91 kg jb4 (R); Height 5 ft. 8 in. (R); 03:30 BP 137 / 74; Pulse 73; Resp 14; Pulse Ox 97% on R/A; rv 04:30 BP 143 / 83; Pulse 74; Resp 16; Temp 98; Pulse Ox 100% on R/A; rv 06:12 BP 136 / 86; Pulse 74; Resp 15; Temp 98.5; Pulse Ox 99% on R/A; rv 03:05 Body Mass Index 28.13 (83.91 kg, 172.72 cm) jb4 MDM: 03:04 Patient medically screened. [facility] 05:01 Differential diagnosis: Anemia asthma, CHF exacerbation, Chronic Obstructive Pulmonary dariel Disease Myocardial Infarction pneumonia, pulmonary edema, Pulmonary Embolism reactive airway disease, Sepsis Unstable Angina. Antibiotic administration: The patient is discharged and will get outpatient antibiotics, Levaquin. Immunization status: Pneumococcal vaccine: within last 5 years. Influenza vaccine: within last 5 years. Data reviewed: vital signs, nurses notes, EMS record, lab test result(s), EKG, radiologic studies, CT scan. Consideration of Admission/Observation Patient was admitted/placed on observation. I considered the following discharge prescriptions or medication management in the emergency department Medications were administered in the Emergency Department. See MAR. Independent interpretation of the following test(s) in the Emergency Department EKG: See my EKG interpretation above. Test considered but Not performed: Ultrasound no 2 d echo. Care significantly affected by the following chronic conditions: Hypertension, sah, gerd, tia. 09/14 03:06 Order name: Basic Metabolic Panel; Complete Time: 04:44 09/14 03:06 Order name: CBC with Diff; Complete Time: 04:44 09/14 03:06 Order name: LFT's; Complete Time: 04:44 09/14 03:06 Order name: Magnesium; Complete Time: 04:44 09/14 03:06 Order name: NT PRO-BNP; Complete Time: 04:44 09/14 03:06 Order name: PT-INR; Complete Time: 04:44 09/14 03:06 Order name: Troponin HS; Complete Time: 04:44 09/14 03:06 Order name: Blood Culture Adult (2) 09/14 03:06 Order name: Lactate w/ 2H reflex if indic.; Complete Time: 04:44 09/14 03:06 Order name: COVID-19/FLU A+B; Complete Time: 04:44 09/14 03:06 Order name: Urinalysis w/ reflexes; Complete Time: 05:50 09/14 03:06 Order name: XRAY Chest (1 view) 09/14 03:06 Order name: Chest Abdomen Pelvis Wo Con CT 09/14 03:06 Order name: EKG; Complete Time: 03:06 09/14 03:06 Order name: Cardiac monitoring; Complete Time: 03:08 09/14 03:06 Order name: EKG - Nurse/Tech; Complete Time: 03:08 09/14 03:06 Order name: IV Saline Lock; Complete Time: 03:08 09/14 03:06 Order name: Labs collected and sent; Complete Time: 03:08 09/14 03:06 Order name: O2 Per Protocol; Complete Time: 03:08 09/14 03:06 Order name: O2 Sat Monitoring; Complete Time: 03:08 09/14 05:50 Order name: Misc. Order: get ua , please; Complete Time: 05:54 dariel EC:00 Rate is 77 beats/min. Rhythm is regular. QRS [place] is Normal. [place] interval is normal. QRS dariel interval is normal. QT interval is normal. No Q waves. T waves are Normal. No ST changes noted. Clinical impression: NSR w/ Non-specific ST/T Changes, 1st degree heart block, and No evidence of ischemia. Interpreted by me. Reviewed by me. Administered Medications: 04:23 Not Given (Duplicate Order): atropine0.5 mg IVP once dariel 04:32 Drug: levofloxacin IVPB 500 mg 100 ml IVPB once over 60 mins Volume: 100 ml; Route: rv IVPB; Infused Over: 60 mins; Site: right forearm; 06:13 Follow up: Response: No adverse reaction; IV Status: Completed infusion rv 04:33 Drug: Levalbuterol Inhalation 1.25 mg Inhalation once Route: Inhalation; rv 06:13 Follow up: Response: No adverse reaction rv 05:24 Drug: Ipratropium Inhalation Aerosol 0.5 mg Inhalation once Route: Inhalation; jb4 06:13 Follow up: Response: No adverse reaction rv 05:24 Drug: Levalbuterol Inhalation 1.25 mg Inhalation once Route: Inhalation; jb4 06:13 Follow up: Response: No adverse reaction rv 06:14 Not Given (not appropriate at this timee): ns 0.9% 1000 ml IV at 125 ml/hr continuous rv Disposition Summary: 09/14/23 05:51 Discharge Ordered Notes: Location: Home dariel Problem: new dariel Symptoms: have improved dariel Condition: Stable dariel Diagnosis - Acute upper respiratory infection, unspecified dariel - Cough dariel Followup: dariel - With: Private Physician - When: 2 - 3 days - Reason: Recheck today's complaints, Continuance of care, Re-evaluation by your physician Followup: dariel - With: Cliff Alvarez MD - When: 2 - 3 days - Reason: Recheck today's complaints, Re-evaluation by your physician Discharge Instructions: - Discharge Summary Sheet dariel - Upper Respiratory Infection, Adult dariel - Cool Mist Vaporizer dariel - Upper Respiratory Infection, Adult, Fceo-mc-Joju dariel - Cough, Adult, Dyjy-ia-Eere dariel - Cough, Adult dariel Forms: - Medication Reconciliation Form dariel - Thank You Letter dariel - Antibiotic Education dariel - Prescription Opioid Use dariel - Patient Portal Instructions dariel - Leadership Thank You Letter dariel Prescriptions: - albuterol sulfate 90 mcg/actuation Inhalation HFA Aerosol Inhaler - inhale 2 puff INHALATION route every 6-8 hours as needed for bronchospasm; dariel administer via ventilator; 1 unit; Refills: 0, Product Selection Permitted - Tessalon Perles 100 mg Oral capsule - take 2 capsule ORAL route every 8 hours As needed; 30 capsule; Refills: 0, [facility] Product Selection Permitted - levofloxacin 500 mg Oral tablet - take 1 tablet ORAL route once daily for 8 days; 8 tablet; Refills: 0, Product [facility] Selection Permitted Signatures: Dispatcher [employer] Claude Prince MD MD cha Bryson, James RN RN jb4 Saji Meza RN RN rv
[2023-09-14 07:39] VITALS: BP 136/86; TEMP 98.5; O2SAT 99
--- NOTE | 2023-09-14 20:29 | RAD REPORT ---
EXAM DESCRIPTION: CT - Chest Abd Pelvis Wo Con - 09/14/2023 7:28 am CLINICAL HISTORY: The patient is 78 years old and is Male; ABDOMINAL DISTENTION TECHNIQUE: Axial computed tomography images of the chest, abdomen and pelvis without intravenous con trast. Sagittal and coronal reformatted images were created and reviewed. This CT exam was perfor med using one or more of the following dose reduction techniques: automated exposure control, adjus tment of the mA and/or kV according to patient size, and/or use of iterative reconstruction technique . COMPARISON: No relevant prior studies available. FINDINGS: CHEST: Lungs: Unremarkable. No mass. No consolidation. Pleural space: Unremarkable. No significant effusion. No pneumothorax. Heart: Coronary artery calcification. No cardiomegaly. No significant pericardial effusion. ABDOMEN: Liver: Unremarkable. Gallbladder and bile ducts: Unremarkable. No calcified stones. No ductal dilation. Pancreas: Unremarkable. No ductal dilation. Spleen: Unremarkable. No splenomegaly. Adrenals: Unremarkable. No mass. Kidneys and ureters: Mild left perinephric stranding. No obstructing stones. No hydronephrosis. Stomach and bowel: Scattered colonic diverticula. No obstruction. No mucosal thickening. PELVIS: Appendix: No findings to suggest acute appendicitis. Bladder: Bladder is collapsed. No stones. Reproductive: Metallic densities in the prostate. CHEST, ABDOMEN and PELVIS: Intraperitoneal space: Unremarkable. No significant fluid collection. No free air. Bones/joints: Right shoulder arthroplasty. Multiple old appearing left rib fractures. Dextrocurvature of the thoracic spine. No dislocation. Soft tissues: Unremarkable. Vasculature: Scattered atherosclerotic vascular calcifications. IVC filter in place. Lymph nodes: Unremarkable. No enlarged lymph nodes. IMPRESSION: 1. Scattered colonic diverticula. 2. Mild left perinephric stranding. Correlate with any concern for infection. 3. Additional non-emergent findings as above. Electronically signed by: Vadim Flaherty MD 09/14/2023 05:42 AM DRAWER UPFITTER Due to temporary technical issues with the PACS/Fluency reporting system, reports are being signed by the in house radiologists without review as a courtesy to insure prompt reporting. The interpreting radiologist is fully responsible for the content of the report.
--- NOTE | 2023-09-14 20:30 | RAD REPORT ---
EXAM DESCRIPTION: RAD - Chest Single View - 09/14/2023 3:29 am CLINICAL HISTORY: DYSPNEA TECHNIQUE: Frontal view of the chest. COMPARISON: XR Chest dated 09/05/2023 FINDINGS: Lungs: Unremarkable. No consolidation. Pleural space: Bilateral calcified pleural plaques. No pneumothorax. Heart: Unremarkable. No cardiomegaly. Mediastinum: Unremarkable. Normal mediastinal contour. Bones/joints: Right humeral prosthesis. Multilevel spondylosis. No acute fracture. Vasculature: Thoracic aortic atherosclerosis. IMPRESSION: No acute disease. Electronically signed by: Sarai Gould MD 09/14/2023 03:50 AM ELECTRONIC SECURITY SPECIALIST Due to temporary technical issues with the PACS/Fluency reporting system, reports are being signed by the in house radiologists without review as a courtesy to insure prompt reporting. The interpreting radiologist is fully responsible for the content of the report.
== END ==
LOC: ER 02:53
DX: J06.9 Acute upper respiratory infection, unspecified (principal); R05.9 Cough, unspecified; R06.02 Shortness of breath; R10.32 Left lower quadrant pain; Z88.8 Allergy status to other drugs, medicaments and biological substances; Z11.52 Encounter for screening for COVID-19
CPT/HCPCS: 93005; 87040 ×2; 85025; 81001; 80048; 36415; 83735; 85610; 80076; 83605; 84484; 83880; 0240U; 71250; 74176; 71045; J7614 ×2; J7644

== ENCOUNTER 2024-01-31 00:42 | Emergency (ER) | payer OTHER ==
[2024-01-31] MEDS ORDERED: ONDANSETRON 4 MG (ODT) TAB ONE (03:31)
[2024-01-31] MEDS ORDERED: HYDROCODONE/APAP 5/325 MG TAB ONE (03:31)
--- NOTE | 2024-01-31 03:33 | ER ---
Nurse's Notes [facility] Name: Nelson Murillo Age: 78 yrs Sex: Male : 1945 Arrival Date: 01/31/2024 Time: 00:42 Bed 6 Private MD: Diagnosis: Contusion of left elbow;Acute fall at home, left elbow injury, left elbow skin tear, moderate dementia Presentation: 01/30 00:59 Chief complaint: EMS states: pt fell tonight, has skin tears on left elbow area and c/o bm8 of left shoulder pain. Coronavirus screen: Vaccine status: At this time, the client does not indicate any symptoms associated with coronavirus-19. Ebola Screen: Patient denies travel to an Ebola-affected area in the 21 days before illness onset. No symptoms or risks identified at this time. Initial Sepsis Screen: Does the patient meet any 2 criteria? Altered Mental Status. No. Patient's initial sepsis screen is negative. Does the patient have a suspected source of infection? No. Patient's initial sepsis screen is negative. Risk Assessment: Do you want to hurt yourself or someone else? Patient reports no desire to harm self or others. Onset of symptoms was January 30, 2024. Care prior to arrival: wound care provided. 00:59 Method Of Arrival: EMS: [facility] bm8 00:59 Acuity: HILARIA 3 bm8 Triage Assessment: 01:02 General: Appears in no apparent distress. comfortable, Behavior is calm, cooperative. bm8 Pain: Complains of pain in left antecubital area and dorsal aspect of left forearm, left shoulder Pain does not radiate. EENT: No deficits noted. No signs and/or symptoms were reported regarding the EENT system. Neuro: Level of Consciousness is awake, alert, obeys commands, Oriented to person, situation. Cardiovascular: Heart tones S1 S2 present Capillary refill < 3 seconds Patient's skin is warm and dry. Derm: Wound noted left arm Wound is skin to to left elbow area. Historical: - Allergies: 01:02 Aspirin; bm8 01:02 Ativan; bm8 01:02 blood thinners; Can't take any blood thinners due to previous brain bleed; bm8 01:02 Mirtazapine; bm8 01:02 rivastigmine; bm8 - Home Meds: 01:02 atorvastatin 80mg daily [Active]; calcium 600 +D3 twice a day [Active]; Dilantin 30 mg bm8 Oral cap daily [Active]; Dilantin 200mg Oral cap twice a day [Active]; ezetimibe 10 mg Oral nightly [Active]; Feosol 325 mg (65 mg iron) Oral tab daily [Active]; Fesol 65mg every Mon/wed/fri [Active]; glucosamine sulfate 1500 every day Oral [Active]; losartan 50mg daily [Active]; metoprolol tartrate 25 mg Oral tab 1 tab 2 times per day [Active]; Metoprolol Tartrate Oral 25 mg twice a day [Active]; Mirtazapine Oral 7.5 mg nightly [Active]; omeprazole 40 mg Oral cpDR once daily [Active]; Omeprazole Oral 40 mg daily [Active]; - PMHx: 01:02 Brain Bleeds x4; CVA; Dementia; GERD; High Cholesterol; Hypertension; Seizures; bm8 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 - Infectious Disease History:: Denies. - Social history:: Smoking status: unknown Patient/guardian denies using. - Family history:: not pertinent. Screenin:08 [facility] ED Fall Risk Assessment (Adult) History of falling in the last 3 months, bm8 including since admission Yes- fall prone (multiple falls) (3 pts) Confusion or Disorientation Yes (5 pts) Intoxicated or Sedated No (0 pts) Impaired Gait Yes (1 pt) Mobility Assist Device Used Yes (1 pt) Altered Elimination No (0 pt) Score/Fall Risk Level 3 or more points = High Risk Oriented to surroundings, Maintained a safe environment, Educated pt \T\ family on fall prevention, incl call for assistance when getting out of bed, Assessed \T\ reinforced patient's understanding of fall precautions. Abuse screen: Denies threats or abuse. Nutritional screening: No deficits noted. Tuberculosis screening: No symptoms or risk factors identified. Assessment: 01:08 Reassessment: see triage assessment. bm8 02:08 Reassessment: Patient appears in no apparent distress at this time. Patient and/or bm8 family updated on plan of care and expected duration. Pain level reassessed. Patient is alert, oriented x 3, equal unlabored respirations, skin warm/dry/pink. Reassessment: skin tear cleaned and dressed. Pain:. Neuro: Level of Consciousness is awake, alert, obeys commands, Oriented to person, situation. 03:28 Reassessment: Patient appears in no apparent distress at this time. Patient and/or bm8 family updated on plan of care and expected duration. Pain level reassessed. Patient is alert, oriented x 3, equal unlabored respirations, skin warm/dry/pink. Patient states feeling better. Patient states symptoms have improved. Vital Signs: 00:59 BP 138 / 94; Pulse 68; Resp 16; Temp 98.2; Pulse Ox 98% ; Weight 86.18 kg; Height 6 ft. bm8 0 in. ; Pain 5/10; 02:08 BP 129 / 86; Pulse 65; Resp 17; Temp 98.2; Pulse Ox 98% ; Pain 4/10; bm8 03:35 BP 135 / 79; Pulse 66; Resp 12; Temp 98.2; Pulse Ox 98% ; Pain 4/10; bm8 00:59 Body Mass Index 25.77 (86.18 kg, 182.88 cm) bm8 00:59 Pain Scale: Adult bm8 02:08 Pain Scale: Adult bm8 03:35 Pain Scale: Adult bm8 Leif Coma Score: 01:08 Eye Response: spontaneous(4). Motor Response: obeys commands(6). Verbal Response: bm8 inappropriate words(3). Total: 13. 03:27 Eye Response: spontaneous(4). Motor Response: obeys commands(6). Verbal Response: sp4 oriented(5). Total: 15. ED Course: 00:45 Patient arrived in ED. rv1 00:49 Patrick Evans MD is Attending Physician. sp4 00:59 Rodney Looney, RN is Primary Nurse. bm8 01:02 Triage completed. bm8 01:02 Arm band placed on right wrist. bm8 01:08 Patient has correct armband on for positive identification. Bed in low position. Call bm8 light in reach. Side rails up X 1. Adult w/ patient. Client placed on continuous cardiac and pulse oximetry monitoring. NIBP monitoring applied. property assessment monitor on. Pulse ox on. NIBP on. Door closed. Noise minimized. Visitors limited. Warm blanket given. Verbal reassurance given. Head of bed elevated. 01:08 No provider procedures requiring assistance completed. bm8 01:28 Forearm Left XRAY In Process Unspecified. EDMS 01:28 Humerus Left XRAY In Process Unspecified. EDMS 01:43 CT Head C Spine In Process Unspecified. EDMS 01:43 CT Chest Abdomen Pelvis W/O Contrast In Process Unspecified. EDMS 03:28 Provided Education on: post er care and wound care for skin tears. One-on-one care X 15 bm8 minutes. 03:28 Patient did not have IV access during this emergency room visit. Wound care: to skin bm8 tear located on left arm was cleaned with soap and water, dressed with xeroform nonadherent bandage and secured with kerlix, Patient tolerated well. Administered Medications: 03:35 Drug: HYDROcodone-acetaminophen PO 5 mg-325 mg 2 tabs PO once Route: PO; bm8 03:35 Follow up: Response: Medication administered at discharge. bm8 03:35 Drug: Ondansetron PO 4 mg PO once Route: PO; bm8 03:35 Follow up: Response: Medication administered at discharge. bm8 Medication: 01:08 VIS not applicable for this client. bm8 Outcome: 03:28 Discharged to home via wheelchair, bm8 03:28 Condition: stable 03:28 Discharge instructions given to patient, family, Instructed on discharge instructions, follow up and referral plans. medication usage, safety practices, wound care, Demonstrated understanding of instructions, follow-up care, medications, 03:32 Discharge ordered by . sp4 03:38 Patient left the ED. bm8 Signatures: Dispatcher [employer] Stephany Caldwell rv1 Patrick Evans MD MD sp4 Rodney Looney, RN RN bm8
--- NOTE | 2024-01-31 03:33 | EDPHYS ---
Physician Documentation [facility] Name: Nelson Murillo Age: 78 yrs Sex: Male : 1945 Arrival Date: 01/31/2024 Time: 00:42 Bed 6 Private MD: ED Physician Patrick Evans HPI: 01/30 00:49 This 78 yrs old Male presents to ER via Unassigned with complaints of fall, sp4 at home . 03:27 78-year-old male with a history of prior hemorrhagic brain injury, CVA, dementia, high sp4 cholesterol, Lewy body dementia, seizures, subarachnoid hemorrhage, presents with acute fall at home with associated left elbow skin tear. Patient is not able to see exactly how he fell..... Historical: - Allergies: 01:02 Aspirin; bm8 01:02 Ativan; bm8 01:02 blood thinners; Can't take any blood thinners due to previous brain bleed; bm8 01:02 Mirtazapine; bm8 01:02 rivastigmine; bm8 - Home Meds: 01:02 atorvastatin 80mg daily [Active]; calcium 600 +D3 twice a day [Active]; Dilantin 30 mg bm8 Oral cap daily [Active]; Dilantin 200mg Oral cap twice a day [Active]; ezetimibe 10 mg Oral nightly [Active]; Feosol 325 mg (65 mg iron) Oral tab daily [Active]; Fesol 65mg every Mon/wed/fri [Active]; glucosamine sulfate 1500 every day Oral [Active]; losartan 50mg daily [Active]; metoprolol tartrate 25 mg Oral tab 1 tab 2 times per day [Active]; Metoprolol Tartrate Oral 25 mg twice a day [Active]; Mirtazapine Oral 7.5 mg nightly [Active]; omeprazole 40 mg Oral cpDR once daily [Active]; Omeprazole Oral 40 mg daily [Active]; - PMHx: 01:02 Brain Bleeds x4; CVA; Dementia; GERD; High Cholesterol; Hypertension; Seizures; bm8 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 - Infectious Disease History:: Denies. - Social history:: Smoking status: unknown Patient/guardian denies using. - Family history:: not pertinent. ROS: 03:27 Constitutional: Full ROS not available secondary to dementia. Positive for left elbow sp4 contusion and skin tear. 03:27 All other systems are negative, 03:27 Unable to obtain ROS due to baseline dementia, Exam: 03:27 Constitutional: This is a well developed, well nourished patient who is awake, and in sp4 no acute distress. Signs of chronic immobility and physical debility. Signs of moderate to severe dementia. Head/Face: Normocephalic, atraumatic. Eyes: Pupils equal round and reactive to light, extra-ocular motions intact. Lids and lashes normal. Conjunctiva and sclera are not injected. Cornea within normal limits. Periorbital areas with no swelling, redness, or edema. ENT: Nares patent. No nasal discharge, no septal abnormalities noted. Tympanic membranes are normal and external auditory canals are clear. Oropharynx with no redness, swelling, or masses, exudates, or evidence of obstruction, uvula midline. Mucous membranes moist. Neck: Trachea midline, no thyromegaly or masses palpated, and no cervical lymphadenopathy. Supple, full range of motion without nuchal rigidity, or vertebral point tenderness. Chest/axilla: Normal chest wall appearance and motion. Nontender with no deformity. No lesions are appreciated. Cardiovascular: Regular rate and rhythm with a normal S1 and S2. No gallops, murmurs, or rubs. Normal PMI, no JVD. No pulse deficits. Respiratory: Lungs have equal breath sounds bilaterally, clear to auscultation and percussion. No rales, rhonchi or wheezes noted. No increased work of breathing, no retractions or nasal flaring. Abdomen/GI: Soft, with normal bowel sounds. No distension or tympany. No guarding or rebound. No evidence of tenderness throughout. Back: No spinal tenderness. No costovertebral tenderness. Skin: Warm, dry with normal turgor. Normal color with no rashes, no lesions, and no evidence of cellulitis. MS/ Extremity: Pulses equal, no cyanosis. Neurovascular intact. Full, normal range of motion. Neuro: Awake and alert, GCS 15, oriented to person, place, time, and situation. Cranial nerves II-XII grossly intact. Motor strength 5/5 in all extremities. Sensory grossly intact. Psych: Awake, alert, with orientation to person, place and time. Behavior, mood, and affect are within normal limits 03:37 ECG was reviewed by the Attending Physician. EKG at 0056 sinus rhythm first-degree AV sp4 block at a rate of 67. Vital Signs: 00:59 BP 138 / 94; Pulse 68; Resp 16; Temp 98.2; Pulse Ox 98% ; Weight 86.18 kg; Height 6 ft. bm8 0 in. ; Pain 5/10; 02:08 BP 129 / 86; Pulse 65; Resp 17; Temp 98.2; Pulse Ox 98% ; Pain 4/10; bm8 03:35 BP 135 / 79; Pulse 66; Resp 12; Temp 98.2; Pulse Ox 98% ; Pain 4/10; bm8 00:59 Body Mass Index 25.77 (86.18 kg, 182.88 cm) bm8 00:59 Pain Scale: Adult bm8 02:08 Pain Scale: Adult bm8 03:35 Pain Scale: Adult bm8 [place] Coma Score: 01:08 Eye Response: spontaneous(4). Motor Response: obeys commands(6). Verbal Response: bm8 inappropriate words(3). Total: 13. 03:27 Eye Response: spontaneous(4). Motor Response: obeys commands(6). Verbal Response: sp4 oriented(5). Total: 15. MDM: 00:54 Patient medically screened. sp4 02:52 ED course: CT - MUSCULOSKELETAL: Chest Wall: No acute rib or sternal fracture. Several sp4 nonacute left lateral rib fractures. Pelvis: No fracture. Proximal Appendicular Bones and Joints: No fracture or joint malalignment. Partially imaged right shoulder arthroplasty hardware. Muscles and Subcutaneous Tissues: No soft tissue injury. IMPRESSION: 1. No acute intracranial abnormality. 2. No acute cervical osseous abnormality. 3. No acute traumatic injury of the chest, abdomen, or pelvis within the exam limitations. 4. No acute thoracic or lumbar osseous abnormality. 5. Chronic and incidental findings above. Electronically signed by: Ja Baptiste MD 01/31/2024 02:30 AM. 03:25 ED course: EXAM DESCRIPTION: Humerus Left CLINICAL HISTORY: left upper arm injury sp4 COMPARISON: None. FINDINGS: 2 views of the left humerus. No acute fracture or dislocation. Osteopenia. Spurring of the left acromioclavicular joint. Likely remote humeral head Hill-Sachs fracture. IMPRESSION: No acute fracture or dislocation.. ED course: EXAM: XR Left Forearm, 2 Views CLINICAL HISTORY: The patient is 78 years old and is Male; arm injury TECHNIQUE: Frontal and lateral views of the left forearm. COMPARISON: No relevant prior studies available. FINDINGS: BONES/JOINTS: Unremarkable. No acute fracture. No dislocation. SOFT TISSUES: Unremarkable. IMPRESSION: Normal left forearm radiographs. . 03:26 ED course: CT had revealed - IMPRESSION: 1. No acute intracranial abnormality. 2. No sp4 acute cervical osseous abnormality. 3. No acute traumatic injury of the chest, abdomen, or pelvis within the exam limitations. 4. No acute thoracic or lumbar osseous abnormality. 5. Chronic and incidental findings above. Patient is stable for discharge home at this time. Will advise fall prevention at home.. 03:27 Differential Diagnosis altered mental status, sepsis, flu, Acute fall at home, head sp4 injury, spinal injury, pelvic injury.. Data reviewed: vital signs, nurses notes, old medical records, radiologic studies, CT scan, plain films. Consideration of Admission/Observation Escalation of care including admission/observation considered. ED course: No sign of acute traumatic injury based on the CT or x-ray. Patient stable for discharge home. Will advise for prevention at home.. 01/30 00:50 Order name: CT Head C Spine sp4 01/30 00:50 Order name: Forearm Left XRAY sp4 01/30 00:50 Order name: Humerus Left XRAY sp4 01/30 00:54 Order name: CT Chest Abdomen Pelvis W/O Contrast sp4 01/30 00:54 Order name: Wound Care; Complete Time: 01:10 sp4 EC:37 Rate is 67 beats/min. Rhythm is regular, Normal Sinus Rhythm. QRS [place] is Normal. SC sp4 interval is prolonged. QRS interval is normal. QT interval is normal. No Q waves. T waves are Normal. No ST changes noted. Clinical impression: Normal ECG. Interpreted by me. Reviewed by me. Administered Medications: 03:35 Drug: HYDROcodone-acetaminophen PO 5 mg-325 mg 2 tabs PO once Route: PO; bm8 03:35 Follow up: Response: Medication administered at discharge. bm8 03:35 Drug: Ondansetron PO 4 mg PO once Route: PO; bm8 03:35 Follow up: Response: Medication administered at discharge. bm8 Disposition Summary: 01/31/24 03:32 Discharge Ordered Notes: Location: Home sp4 Problem: new sp4 Symptoms: have improved sp4 Condition: Stable sp4 Diagnosis - Contusion of left elbow sp4 - Acute fall at home, left elbow injury, left elbow skin tear, moderate dementia sp4 Followup: sp4 - With: Emergency Department - When: 7 - 10 days - Reason: Recheck today's complaints Discharge Instructions: - Discharge Summary Sheet sp4 - Skin Tear, [id number] sp4 Forms: - Patient Portal Instructions sp4 Signatures: Dispatcher [employer] EDPatrick Mathias MD MD sp4 Rodney Looney, RN RN bm8 Corrections: (The following items were deleted from the chart) 00:50 00:50 Head C Spine MPR Wo Con+CT.RAD.BRZ ordered. EDMS EDMS
[2024-01-31 03:55] VITALS: BP 135/79; TEMP 98.2; O2SAT 98
--- NOTE | 2024-01-31 09:08 | RAD REPORT ---
EXAM DESCRIPTION: CT - Head C Spine Mpr Wo Con - 01/31/2024 6:33 am CLINICAL HISTORY: Male, 78 years old, fall, head injury, pain in hips COMPARISON: CT chest/abdomen/pelvis 09/14/2023, CT head/cervical spine 08/05/2023 (report only availa ble at the time of dictation) TECHNIQUE: CT acquisition of the head without contrast. CT acquisition of the cervical spine without contrast. CT acquisition of the chest, abdomen, and pelvis without contrast. Coronal and sagittal re formatted images provided. Coronal and sagittal reformats provided. This exam was performed according to departmental dose-optimization program which includes automated exposure control, adjustment of t he mA and/or kV according to patient size, and/or use of iterative reconstruction technique. FINDINGS: SUPPORTIVE DEVICES: None. HEAD: Brain: No evidence of intracranial hemorrhage, mass effect, midline shift, edema, or extra-axial flui d collection. Patchy areas of hypodensity are noted throughout the cerebral white matter most likely due to chronic microvascular ischemic changes. CSF Spaces: The ventricles and sulci are mildly enlarged consistent with mild global parenchymal volu me loss. Skull: No acute fracture. Prior superior left frontal craniotomy. Soft tissue: No evidence of scalp or soft tissue injury. Other: The imaged facial bones are intact. The globes and orbits are unremarkable. The visualized par anasal sinuses and mastoid cells are clear. CERVICAL SPINE: Morphology: Normal vertebral body heights. No identified fracture. Alignment: No traumatic listhesis. Craniocervical Junction: Intact with degenerative change. Disc Levels: Mild multilevel degenerative changes. Other: No acute finding of the neck soft tissues. Heterogeneous thyroid. Lack of intravenous contrast limits evaluation of the abdominal and pelvic viscera and vascular struc tures. Beam hardening from arms down positioning results in decreased [id number] and further mcdonald its interpretation. CHEST: Vasculature: No noncontrast evidence of injury. Aortic and branch vessel atherosclerosis. Heart and Pericardium: Normal heart size. No pericardial effusion. Two-vessel coronary atherosclerosi s. Mediastinum: No mediastinal hematoma. Unremarkable esophagus. Lungs and Airways: No pulmonary contusion or laceration. Dependent atelectasis. Pleural Space: No pneumothorax or hemothorax. Multiple areas of calcification bilaterally. ABDOMEN/PELVIS: Liver: No evidence of liver injury. Gallbladder/Biliary System: Unremarkable. Pancreas: No evidence of pancreatic injury. Spleen: No evidence of splenic injury. Adrenals: Unremarkable. Kidneys and Ureters: No evidence of injury. Bladder: No gross bladder contusion or obvious rupture. Reproductive Organs: Prostatomegaly with multiple small clips. Vasculature: No evidence of injury. Aortic and branch vessel atherosclerosis. Mesentery and Peritoneum: No hemoperitoneum or pneumoperitoneum. Bowel: Atraumatic appearance. THORACIC AND LUMBAR SPINE: Morphology: No fracture. Vertebral body heights are normal. Alignment: No traumatic listhesis. Moderate thoracic dextrocurvature. Disc Levels: Mild multilevel degenerative changes. MUSCULOSKELETAL: Chest Wall: No acute rib or sternal fracture. Several nonacute left lateral rib fractures. Pelvis: No fracture. Proximal Appendicular Bones and Joints: No fracture or joint malalignment. Partially imaged right derek ulder arthroplasty hardware. Muscles and Subcutaneous Tissues: No soft tissue injury. IMPRESSION: 1. No acute intracranial abnormality. 2. No acute cervical osseous abnormality. 3. No acute traumatic injury of the chest, abdomen, or pelvis within the exam limitations. 4. No acute thoracic or lumbar osseous abnormality. 5. Chronic and incidental findings above. Electronically signed by: Ja Baptiste MD 01/31/2024 02:30 AM [facility] Due to temporary technical issues with the PACS/[employer] reporting system, reports are being signed by the in house radiologists without review as a courtesy to insure prompt reporting. The interpreting radiologist is fully responsible for the content of the report.
--- NOTE | 2024-01-31 09:19 | RAD REPORT ---
EXAM DESCRIPTION: CT - Chest Abd Pelvis Wo Con - 01/31/2024 6:33 am CLINICAL HISTORY: Male, 78 years old, fall, head injury, pain in hips COMPARISON: CT chest/abdomen/pelvis 09/14/2023, CT head/cervical spine 08/05/2023 (report only availa ble at the time of dictation) TECHNIQUE: CT acquisition of the head without contrast. CT acquisition of the cervical spine without contrast. CT acquisition of the chest, abdomen, and pelvis without contrast. Coronal and sagittal re formatted images provided. Coronal and sagittal reformats provided. This exam was performed according to departmental dose-optimization program which includes automated exposure control, adjustment of t he mA and/or kV according to patient size, and/or use of iterative reconstruction technique. FINDINGS: SUPPORTIVE DEVICES: None. HEAD: Brain: No evidence of intracranial hemorrhage, mass effect, midline shift, edema, or extra-axial flui d collection. Patchy areas of hypodensity are noted throughout the cerebral white matter most likely due to chronic microvascular ischemic changes. CSF Spaces: The ventricles and sulci are mildly enlarged consistent with mild global parenchymal volu me loss. Skull: No acute fracture. Prior superior left frontal craniotomy. Soft tissue: No evidence of scalp or soft tissue injury. Other: The imaged facial bones are intact. The globes and orbits are unremarkable. The visualized par anasal sinuses and mastoid cells are clear. CERVICAL SPINE: Morphology: Normal vertebral body heights. No identified fracture. Alignment: No traumatic listhesis. Craniocervical Junction: Intact with degenerative change. Disc Levels: Mild multilevel degenerative changes. Other: No acute finding of the neck soft tissues. Heterogeneous thyroid. Lack of intravenous contrast limits evaluation of the abdominal and pelvic viscera and vascular struc tures. Beam hardening from arms down positioning results in decreased [id number] and further mcdonald its interpretation. CHEST: Vasculature: No noncontrast evidence of injury. Aortic and branch vessel atherosclerosis. Heart and Pericardium: Normal heart size. No pericardial effusion. Two-vessel coronary atherosclerosi s. Mediastinum: No mediastinal hematoma. Unremarkable esophagus. Lungs and Airways: No pulmonary contusion or laceration. Dependent atelectasis. Pleural Space: No pneumothorax or hemothorax. Multiple areas of calcification bilaterally. ABDOMEN/PELVIS: Liver: No evidence of liver injury. Gallbladder/Biliary System: Unremarkable. Pancreas: No evidence of pancreatic injury. Spleen: No evidence of splenic injury. Adrenals: Unremarkable. Kidneys and Ureters: No evidence of injury. Bladder: No gross bladder contusion or obvious rupture. Reproductive Organs: Prostatomegaly with multiple small clips. Vasculature: No evidence of injury. Aortic and branch vessel atherosclerosis. Mesentery and Peritoneum: No hemoperitoneum or pneumoperitoneum. Bowel: Atraumatic appearance. THORACIC AND LUMBAR SPINE: Morphology: No fracture. Vertebral body heights are normal. Alignment: No traumatic listhesis. Moderate thoracic dextrocurvature. Disc Levels: Mild multilevel degenerative changes. MUSCULOSKELETAL: Chest Wall: No acute rib or sternal fracture. Several nonacute left lateral rib fractures. Pelvis: No fracture. Proximal Appendicular Bones and Joints: No fracture or joint malalignment. Partially imaged right edrek ulder arthroplasty hardware. Muscles and Subcutaneous Tissues: No soft tissue injury. IMPRESSION: 1. No acute intracranial abnormality. 2. No acute cervical osseous abnormality. 3. No acute traumatic injury of the chest, abdomen, or pelvis within the exam limitations. 4. No acute thoracic or lumbar osseous abnormality. 5. Chronic and incidental findings above. Electronically signed by: Ja Baptiste MD 01/31/2024 02:30 AM [facility] Due to temporary technical issues with the PACS/Fluency reporting system, reports are being signed by the in house radiologists without review as a courtesy to insure prompt reporting. The interpreting radiologist is fully responsible for the content of the report.
--- NOTE | 2024-01-31 11:30 | RAD REPORT ---
EXAM DESCRIPTION: RAD - Forearm Left - 01/31/2024 1:26 am CLINICAL HISTORY: The patient is 78 years old and is Male; arm injury TECHNIQUE: Frontal and lateral views of the left forearm. COMPARISON: No relevant prior studies available. FINDINGS: BONES/JOINTS: Unremarkable. No acute fracture. No dislocation. SOFT TISSUES: Unremarkable. IMPRESSION: Normal left forearm radiographs. Electronically signed by: Sindi Vegas MD 01/31/2024 01:36 AM CDT RP Due to temporary technical issues with the PACS/Fluency reporting system, reports are being signed by the in house radiologists without review as a courtesy to insure prompt reporting. The interpreting radiologist is fully responsible for the content of the report.
--- NOTE | 2024-01-31 11:41 | RAD REPORT ---
EXAM DESCRIPTION: RAD - Humerus Left - 01/31/2024 1:26 am CLINICAL HISTORY: Left upper arm injury COMPARISON: None. FINDINGS: 2 views of the left humerus. No acute fracture or dislocation. Osteopenia. Spurri ng of the left acromioclavicular joint. Likely remote humeral head Hill-Sachs fracture. IMPRESSION: No acute fracture or dislocation. Electronically signed by: Matteo Fagan DO 01/31/2024 01:38 AM CDT RP [id number] Due to temporary technical issues with the PACS/Fluency reporting system, reports are being signed by the in house radiologists without review as a courtesy to insure prompt reporting. The interpreting radiologist is fully responsible for the content of the report.
--- NOTE | 2024-02-03 15:05 | EKG ---
Test Date: 2024-01-31 Test Time: 00:56:54 Ice Crusher: [place] MEASUREMENT RESULTS: Intervals: Rate: 67 VA: 236 QRSD: 88 QT: 388 QTc: 409 [place]: P: 71 VA: 236 QRS: 65 T: 77 INTERPRETIVE STATEMENTS: Sinus rhythm with 1st degree AV block Otherwise normal ECG Compared to ECG 09/14/2023 03:03:53 No significant changes Electronically Signed On 02-03-24 14:55:03 CDT by Edgar Mccormick
== END 2024-01-31 03:38 | disposition home or self-care (01) ==
LOC: ER 00:42
DX: S51.012A Laceration without foreign body of left elbow, initial encounter (principal); S50.02XA Contusion of left elbow, initial encounter; W18.30XA Fall on same level, unspecified, initial encounter; Y92.009 Unspecified place in unspecified non-institutional (private) residence as the place of occurrence of the external cause; F03.B0 Unspecified dementia, moderate, without behavioral disturbance, psychotic disturbance, mood disturbance, and anxiety
CPT/HCPCS: 93005; 70450; 71250; 72125; 74176; 73090; 73060; 99284; Q0162

== ENCOUNTER 2024-08-22 04:30 | Emergency (ER) | payer OTHER ==
[2024-08-22] MEDS ORDERED: MORPHINE 4 MG/ML SYR ONE (04:52)
[2024-08-22] MEDS ORDERED: NA CHLORIDE 0.9% 1,000 ML ONE (04:52)
[2024-08-22] MEDS ORDERED: ONDANSETRON 4 MG/2 ML VIAL ONE (04:52)
[2024-08-22] MEDS ORDERED: FAMOTIDINE 20 MG/2 ML VIAL IV ONE (04:52)
[2024-08-22 05:19] LABS: Absolute Lymphocytes (CBC) 0.5 K/uL (0.7-4.9); Absolute Monocytes 0.5 K/uL (0.1-1.3); Absolute Neutrophil 5.9 K/uL (1.8-8.0); Basophils % 0.3 % (0-1.3); Eosinophils % 0.7 % (0-4.4); Hematocrit 40.2 % (39.6-49.0); Hemoglobin 14.1 g/dL (13.6-17.9); Lymphocytes % 7.6 % (15.3-44.8); MCV 91.5 fL (80-100); MPV 7.4 fL (7.6-11.3); Monocytes % 7.5 % (3.3-12.3); Neutrophils % 83.9 % (41.7-73.7); Nucleated Red Blood Cells % 0.2 % (0-0); Platelets 145 thou/uL (152-406); RBC Red Blood Cell Count 4.39 M/uL (4.33-5.43); Red Cell Distribution Width 13.2 % (12.1-15.2)
[2024-08-22 05:29] LABS: Specific Gravity 1.015 (1.005-1.030); Sqamous Epithelial <5 /HPF (None Seen); Urine Bacteria None Seen /HPF (<20); Urine Bilirubin NEGATIVE (Negative); Urine Blood 1+ (Negative); Urine Clarity Turbid (Clear); Urine Color Light-Yellow (Yellow); Urine Culture Reflex Order NOT NEEDED; Urine Glucose NEGATIVE (Negative); Urine Ketones NEGATIVE (Negative); Urine Microscopic Reflex YN ORDER UMIC; Urine Mucus Slight /HPF (None Seen); Urine Nitrite NEGATIVE (Negative); Urine Protein NEGATIVE (Negative); Urine RBC <5 /HPF (None Seen); Urine Urobilinogen Normal (Normal); Urine WBC <5 /HPF (<5); Urine pH 5.5 (5.0-7.0)
[2024-08-22 05:36] LABS: Albumin 3.7 g/dL (3.4-5.0); Bilirubin Total 0.6 mg/dL (0.2-1.0); Globulin 3.6 g/dL (2.3-3.5); Protein, Total 7.3 g/dL (6.4-8.2)
--- NOTE | 2024-08-22 07:14 | RAD REPORT ---
EXAM DESCRIPTION: Abdomen Pelvis W Contrast RadLex: CT ABDOMEN PELVIS WITH IV CONTRAST CLINICAL HISTORY: 79 years Male; ABD PAIN; IV ONLY Bed Name: 8 TECHNIQUE: CT of the abdomen and pelvis [with] intravenous contrast. All CT scans at this facility use dose modulation, iterative reconstruction, and/or weight based dosi ng when appropriate to reduce radiation dose to as low as reasonably achievable. COMPARISON: None. FINDINGS: Lower thorax: Visualized lungs are clear. Scattered calcified granulomas. Minimal pleural calcifications along left lung base. Coronary artery calcifications. Abdomen: Stomach: Small hiatal hernia. Liver: No focal lesions. No intrahepatic ductal distention. Gallbladder: Mildly distended. Pancreas: Within normal limits Spleen: Within normal limits Right kidney: Mild hydronephrosis. No focal lesion. Left kidney: Mild hydronephrosis. No focal lesion. Adrenal glands: Within normal limits Vascular structures: Atherosclerosis of the abdominal aorta and major branches. IVC filter noted. Nodes: No lymphadenopathy by size criteria Pelvis: Small bowel: No significant distention. Appendix: Not visualized. Colon: No distention or acute pericolonic edema. Colonic diverticulosis. Peritoneum: No free intraperitoneal fluid or air. Bones: No acute bone findings. Chronic appearing left-sided rib fracture deformities. Bladder: Severe distention. Reproductive organs: Prostatomegaly. Possible brachytherapy beads adjacent to the prostate. IMPRESSION: 1. Severe distention of the urinary bladder with mild bilateral hydronephrosis, concerning for blad reji outlet obstruction. 2. Prostatomegaly. 3. Colonic diverticulosis without diverticulitis. Electronically signed by: Jade Herbert MD 08/22/2024 07:07 AM [facility] Z9 Due to temporary technical issues with the PACS/[employer] reporting system, reports are being jamin d by the in-house radiologist without review as a courtesy to ensure prompt reporting the interpreting radiologist is fully responsible for the content of the report. Transcribed Date/Time: 08/22/2024 7:13 AM
--- NOTE | 2024-08-22 07:23 | ER ---
Nurse's Notes [facility] Name: Nelson Murillo Age: 79 yrs Sex: Male : 1945 Arrival Date: 08/22/2024 Time: 04:30 Bed 8 Private MD: Diagnosis: Lower abdominal pain, unspecified;Bladder Distention Presentation: 08/22 04:46 Chief complaint: Patient states: lower abdominal pain with N/V/D X3 days. Coronavirus lg3 screen: Client denies travel out of the [place] in the last 14 days. At this time, the client does not indicate any symptoms associated with coronavirus-19. Ebola Screen: No symptoms or risks identified at this time. Initial Sepsis Screen: Does the patient meet any 2 criteria? No. Patient's initial sepsis screen is negative. Does the patient have a suspected source of infection? No. Patient's initial sepsis screen is negative. Risk Assessment: Do you want to hurt yourself or someone else? Patient reports no desire to harm self or others. Onset of symptoms was August 20, 2024. 04:46 Method Of Arrival: Ambulatory lg3 04:46 Acuity: HILARIA 3 lg3 Triage Assessment: 04:48 General: Appears in no apparent distress. uncomfortable, Behavior is calm, cooperative. lg3 Pain: Complains of pain in abdomen. EENT: No deficits noted. No signs and/or symptoms were reported regarding the EENT system. Neuro: No deficits noted. Ba Agitation-Sedation Scale (RASS): 0 - Alert and Calm Level of Consciousness is awake, alert, obeys commands, Oriented to person, place, time, situation. Cardiovascular: No deficits noted. Denies chest pain, shortness of breath, Capillary refill < 3 seconds Clubbing of nail beds is absent JVD is absent Patient's skin is warm and dry. Respiratory: No deficits noted. Airway is patent Respiratory effort is even, unlabored, Respiratory pattern is regular, symmetrical. GI: Abdomen is round non-distended, Reports lower abdominal pain, diarrhea, nausea, vomiting. : No signs and/or symptoms were reported regarding the genitourinary system. Derm: No deficits noted. No signs and/or symptoms reported regarding the dermatologic system. Skin is intact, is healthy with good turgor, Skin is dry, Skin is normal, Skin temperature is warm. Musculoskeletal: No deficits noted. Circulation, motion, and sensation intact. Range of motion: intact in all extremities. 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 - Infectious Disease History:: Denies. - Social history:: Smoking status: Patient denies any tobacco usage or history of. Patient/guardian denies using alcohol, street drugs. Screenin:40 [facility] ED Fall Risk Assessment (Adult) History of falling in the last 3 months, br2 including since admission No falls in past 3 months (0 pts) Confusion or Disorientation No (0 pts) Intoxicated or Sedated No (0 pts) Impaired Gait No (0 pts) Mobility Assist Device Used No (0 pt) Altered Elimination No (0 pt) Score/Fall Risk Level 0 - 2 = Low Risk Oriented to surroundings, Maintained a safe environment. Abuse screen: Denies threats or abuse. Denies injuries from another. Nutritional screening: No deficits noted. Tuberculosis screening: No symptoms or risk factors identified. Assessment: 04:40 Reassessment: Patient and/or family updated on plan of care and expected duration. Pain br2 level reassessed. Patient is alert, oriented x 3, equal unlabored respirations, skin warm/dry/pink. General: Appears in no apparent distress. comfortable, Behavior is calm, cooperative. Pain: Complains of pain in right lower quadrant and left lower quadrant. Neuro: Ab Agitation-Sedation Scale (RASS): 0 - Alert and Calm Level of Consciousness is awake, alert, obeys commands, Oriented to person, place, time, situation. Cardiovascular: Capillary refill < 3 seconds. Respiratory: Airway is patent Respiratory effort is even, unlabored, Respiratory pattern is regular, symmetrical. GI: Bowel sounds present X 4 quads. Abdomen is tender to palpation in umbilical area, right lower quadrant and left lower quadrant. : No signs and/or symptoms were reported regarding the genitourinary system. EENT: No signs and/or symptoms were reported regarding the EENT system. Derm: No signs and/or symptoms reported regarding the dermatologic system. Musculoskeletal: No signs and/or symptoms reported regarding the musculoskeletal system. 07:15 General: Appears in no apparent distress. comfortable, well groomed, well developed, kc6 Behavior is calm, cooperative, appropriate for age. Neuro: Level of Consciousness is awake, alert, obeys commands, Oriented to person, place, time, situation, Appropriate for age. Cardiovascular: Capillary refill < 3 seconds. Respiratory: Airway is patent Trachea midline Respiratory effort is even, unlabored, Respiratory pattern is regular, symmetrical. : No signs and/or symptoms were reported regarding the genitourinary system. Urine is clear. EENT: No signs and/or symptoms were reported regarding the EENT system. Derm: No signs and/or symptoms reported regarding the dermatologic system. Skin is intact, is healthy with good turgor, Skin is pink, warm \T\ dry. Musculoskeletal: No signs and/or symptoms reported regarding the musculoskeletal system. Circulation, motion, and sensation intact. Range of motion: intact in all extremities. Vital Signs: 04:46 BP 144 / 83; Pulse 86; Resp 17 S; Temp 98.1(O); Pulse Ox 96% on R/A; Weight 83.91 kg lg3 (R); Height 5 ft. 8 in. (R); 05:30 BP 142 / 75; Pulse 75; Resp 18; Pulse Ox 96% ; br2 06:40 BP 138 / 89; Pulse 76; Resp 18 S; Pulse Ox 95% on R/A; br2 04:46 Body Mass Index 28.13 (83.91 kg, 172.72 cm) lg3 Leif Coma Score: 05:21 Eye Response: spontaneous(4). Motor Response: obeys commands(6). Verbal Response: sp4 oriented(5). Total: 15. ED Course: 04:33 Patient arrived in ED. gm2 04:36 Patrick Evans MD is Attending Physician. sp4 04:40 Patient has correct armband on for positive identification. Bed in low position. Call br2 light in reach. Side rails up X 1. Provided Education on: PLAN OF CARE. 04:43 Janeen Sparks, FERN is Primary Nurse. br2 04:48 Triage completed. lg3 04:48 Arm band placed on right wrist. lg3 05:02 CBC with Diff Sent. br2 05:02 CMP Sent. br2 05:02 Lipase Sent. br2 05:02 Urinalysis w/ reflexes Sent. br2 05:03 Inserted saline lock: 20 gauge in right antecubital area, using aseptic technique. br2 Blood collected. Flushed with 10 mL NS. 06:02 CT Abd/Pelvis - IV Contrast Only In Process Unspecified. EDMS 07:00 Report received from Cari Ang RN \T\ Janeen Sparks RN. kc6 07:00 Pulse ox on. NIBP on. Door closed. Noise minimized. Lights dimmed. Warm blanket given. kc6 Pillow given. 07:16 Attending Physician role handed off by Patrick Evans MD ec2 07:16 Mdahu De Los Santos MD is Attending Physician. ec2 07:23 Marcus Rosenthal MD is Referral Physician. ec2 07:34 No provider procedures requiring assistance completed. IV discontinued, intact, kc6 bleeding controlled, No redness/swelling at site. Pressure dressing applied. Administered Medications: 05:01 Drug: Famotidine IVP 20 mg IVP once; dilute with 10 mL 0.9% NaCl; give over 2 minutes br2 Route: IVP; Site: right antecubital; 05:16 Follow up: Response: No adverse reaction dd2 05:01 Drug: NS 0.9% IV 1000 ml IV at 125 ml/hr Per protocol; to be given as a bolus over 60 br2 minutes Route: IV; Rate: 125 ml/hr; Site: right antecubital; 05:16 Follow up: Response: No adverse reaction dd2 05:01 Drug: morphine IVP or IV 4 mg IVP once over 4 mins Route: IVP; Infused Over: 4 mins; br2 Site: right antecubital; 05:16 Follow up: Response: No adverse reaction dd2 05:02 Drug: Ondansetron IVP 4 mg IVP once; over 2 minutes Route: IVP; Site: right antecubital;br2 05:16 Follow up: Response: No adverse reaction dd2 Medication: 07:34 VIS not applicable for this client. kc6 Outcome: 07:23 Discharge ordered by . ec2 07:34 Discharged to home ambulatory, with significant other, kc6 07:34 Condition: improved 07:34 Discharge instructions given to patient, significant other, Instructed on discharge instructions, follow up and referral plans. Demonstrated understanding of instructions, follow-up care, 07:34 Patient left the ED. kc6 Signatures: Dispatcher [employer] EDGinny Espinal RN RN lg3 Isela Olsen RN RN kc6 Patrick Evans MD MD sp4 Madhu De Los Santos MD MD ec2 Afia Bautista gm2 Janeen Sparks RN RN br2 CARI ANG RN RN dd2
--- NOTE | 2024-08-22 07:24 | EDPHYS ---
Physician Documentation [facility] Name: Nelson Murillo Age: 79 yrs Sex: Male : 1945 Arrival Date: 08/22/2024 Time: 04:30 Bed 8 Private MD: ED Physician Madhu De Los Santos HPI: 08/22 04:36 This 79 yrs old Male presents to ER via Unassigned with complaints of sp4 Abdominal Pain, Nausea/Vomiting. 05:21 79-year-old male presents with complaint of abdominal pain lower abdomen nausea sp4 vomiting. This started 3 days ago.. 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 - Infectious Disease History:: Denies. - Social history:: Smoking status: Patient denies any tobacco usage or history of. Patient/guardian denies using alcohol, street drugs. ROS: 05:21 Constitutional: Negative for fever, chills, and weight loss, positive abdominal pain sp4 positive nausea vomiting Eyes: Negative for injury, pain, redness, and discharge, 05:21 All other systems are negative, Exam: 05:21 Constitutional: This is a well developed, well nourished patient who is awake, alert, sp4 and in no acute distress. Head/Face: Normocephalic, atraumatic. Eyes: Pupils equal round and reactive to light, extra-ocular motions intact. Lids and lashes normal. Conjunctiva and sclera are not injected. Cornea within normal limits. Periorbital areas with no swelling, redness, or edema. ENT: Nares patent. No nasal discharge, no septal abnormalities noted. Tympanic membranes are normal and external auditory canals are clear. Oropharynx with no redness, swelling, or masses, exudates, or evidence of obstruction, uvula midline. Mucous membranes moist. Neck: Trachea midline, no thyromegaly or masses palpated, and no cervical lymphadenopathy. Supple, full range of motion without nuchal rigidity, or vertebral point tenderness. Chest/axilla: Normal chest wall appearance and motion. Nontender with no deformity. No lesions are appreciated. Cardiovascular: Regular rate and rhythm with a normal S1 and S2. No gallops, murmurs, or rubs. Normal PMI, no JVD. No pulse deficits. Respiratory: Lungs have equal breath sounds bilaterally, clear to auscultation and percussion. No rales, rhonchi or wheezes noted. No increased work of breathing, no retractions or nasal flaring. Abdomen/GI: Soft, with normal bowel sounds. No distension or tympany. No guarding or rebound. No evidence of tenderness throughout. Back: No spinal tenderness. No costovertebral tenderness. Skin: Warm, dry with normal turgor. Normal color with no rashes, no lesions, and no evidence of cellulitis. MS/ Extremity: Pulses equal, no cyanosis. Neurovascular intact. Full, normal range of motion. Neuro: Awake and alert, GCS 15, oriented to person, place, time, and situation. Cranial nerves II-XII grossly intact. Motor strength 5/5 in all extremities. Sensory grossly intact. Psych: Awake, alert, with orientation to person, place and time. Behavior, mood, and affect are within normal limits Vital Signs: 04:46 BP 144 / 83; Pulse 86; Resp 17 S; Temp 98.1(O); Pulse Ox 96% on R/A; Weight 83.91 kg lg3 (R); Height 5 ft. 8 in. (R); 05:30 BP 142 / 75; Pulse 75; Resp 18; Pulse Ox 96% ; br2 06:40 BP 138 / 89; Pulse 76; Resp 18 S; Pulse Ox 95% on R/A; br2 04:46 Body Mass Index 28.13 (83.91 kg, 172.72 cm) lg3 Leif Coma Score: 05:21 Eye Response: spontaneous(4). Motor Response: obeys commands(6). Verbal Response: sp4 oriented(5). Total: 15. MDM: 04:38 Medical Screening Exam initiated sp4 07:06 Differential diagnosis: Nonspecific abd pain, gastritis, cholecystitis, pancreatitis, sp4 appendicitis, diverticulitis, viral gastroenteritis, gastroenteritis. Data reviewed: vital signs, nurses notes, old medical records, lab test result(s), CBC, electrolytes, hepatic panel, radiologic studies, CT scan. Consideration of Admission/Observation Escalation of care including admission/observation considered. Transition of care: After a detail discussion of the patient's case, care is transferred to Madhu De Los Santos MD. 07:18 ED course: Patient signed out to me by previous physician, in brief arrives today for ec2 abdominal pain along with nausea and vomiting and diarrhea. Lab work is remarkable for reassuring urine test, lipase within normal ranges, metabolic profile shows some renal dysfunction otherwise CBC that is reassuring. CT abdomen pelvis shows bladder outlet obstruction, diverticulosis without diverticulitis.. 07:19 ED course: When compared to external records, renal function previously similar. Urine ec2 otherwise noninfectious appearing. Will discharge home have the patient follow-up with urology.. 08/22 04:37 Order name: CBC with Diff; Complete Time: 07:09 sp4 08/22 04:37 Order name: CMP; Complete Time: 07:09 sp4 08/22 04:37 Order name: Lipase; Complete Time: 07:09 sp4 08/22 04:37 Order name: Urinalysis w/ reflexes; Complete Time: 07:09 sp4 08/22 04:37 Order name: CT Abd/Pelvis - IV Contrast Only; Complete Time: 07:32 sp4 08/22 04:37 Order name: IV Saline Lock; Complete Time: 05:02 sp4 08/22 04:37 Order name: Labs collected and sent; Complete Time: 05:02 sp4 Administered Medications: 05:01 Drug: Famotidine IVP 20 mg IVP once; dilute with 10 mL 0.9% NaCl; give over 2 minutes br2 Route: IVP; Site: right antecubital; 05:16 Follow up: Response: No adverse reaction dd2 05:01 Drug: NS 0.9% IV 1000 ml IV at 125 ml/hr Per protocol; to be given as a bolus over 60 br2 minutes Route: IV; Rate: 125 ml/hr; Site: right antecubital; 05:16 Follow up: Response: No adverse reaction dd2 05:01 Drug: morphine IVP or IV 4 mg IVP once over 4 mins Route: IVP; Infused Over: 4 mins; br2 Site: right antecubital; 05:16 Follow up: Response: No adverse reaction dd2 05:02 Drug: Ondansetron IVP 4 mg IVP once; over 2 minutes Route: IVP; Site: right antecubital;br2 05:16 Follow up: Response: No adverse reaction dd2 Disposition Summary: 08/22/24 07:23 Discharge Ordered Notes: Location: Home ec2 Condition: Stable ec2 Diagnosis - Lower abdominal pain, unspecified ec2 - Bladder Distention ec2 Followup: ec2 - With: Marcus Rosenthal MD - When: - Reason: Recheck today's complaints Discharge Instructions: - Discharge Summary Sheet ec2 - Abdominal Pain, Adult, [id number] ec2 Forms: - Medication Reconciliation Form ec2 - Antibiotic Education ec2 - Prescription Opioid Use ec2 - Patient Portal Instructions ec2 - Leadership Thank You Letter ec2 Signatures: Dispatcher [employer] Ginny Argueta RN RN lg3 Patrick Evans MD MD sp4 Madhu De Los Santos MD MD ec2 Janeen Sparks RN RN br2 YVETTE CASTANEDA RN dd2 Corrections: (The following items were deleted from the chart) 04:38 04:38 CBC+H.LAB.BRZ ordered. EDMS EDMS 04:38 04:38 COMPREHENSIVE METABOLIC PANEL+C.LAB.BRZ ordered. EDMS EDMS 04:38 04:38 LIPASE+C.LAB.BRZ ordered. EDMS EDMS 04:38 04:38 Urinalysis+U.LAB.BRZ ordered. EDMS EDMS 04:38 04:38 Abdomen Pelvis W Con+CT.RAD.BRZ ordered. EDMS EDMS
[2024-08-22 07:49] VITALS: TEMP 98.1
[2024-08-22 07:59] VITALS: BP 138/89; O2SAT 95
== END 2024-08-22 07:34 | disposition home or self-care (01) ==
LOC: ER 04:30
DX: N32.89 Other specified disorders of bladder (principal); R11.2 Nausea with vomiting, unspecified
CPT/HCPCS: 85025; 81001; 36415; 83690; 80053; 74177; 96375; 96374; 99284; Q9967; J2405; J7030

== ENCOUNTER 2024-11-04 21:32 | Emergency (ER) | payer OTHER ==
[2024-11-04 22:20] LABS: Absolute Eosinophils 0.2 K/uL (0-0.5); Absolute Lymphocytes (CBC) 0.5 K/uL (0.7-4.9); Absolute Monocytes 0.3 K/uL (0.1-1.3); Absolute Neutrophil 3.2 K/uL (1.8-8.0); Basophils % 0.5 % (0-1.3); Eosinophils % 5.4 % (0-4.4); Hematocrit 35.9 % (39.6-49.0); Hemoglobin 12.8 g/dL (13.6-17.9); Lymphocytes % 12.4 % (15.3-44.8); MCH 32.1 pg (27.0-35.0); MCHC 35.6 g/dL (32.0-36.0); MCV 90.1 fL (80-100); MPV 7.1 fL (7.6-11.3); Monocytes % 7.9 % (3.3-12.3); Neutrophils % 73.8 % (41.7-73.7); Nucleated Red Blood Cells % 0.1 % (0-0); Platelets 135 thou/uL (152-406); RBC Red Blood Cell Count 3.99 M/uL (4.33-5.43); Red Cell Distribution Width 13.7 % (12.1-15.2)
--- NOTE | 2024-11-04 22:23 | RAD REPORT ---
EXAM: Chest Single View HISTORY: 79 years Male CHEST PAIN COMPARISON: 09/14/2023 FINDINGS: LUNGS/PLEURA: The lungs are clear. No pleural effusions or pneumothorax. No pulmonary edema. Left-jim ed calcified pleural plaque. CARDIAC/MEDIASTINUM: The cardiac silhouette is within normal limits. UPPER ABDOMEN: No significant abnormality. BONES: No acute abnormality. Right shoulder arthroplasty. LINES/TUBES/OTHER: N/A IMPRESSION: No evidence of acute cardiopulmonary disease. No significant change from prior.
[2024-11-04 22:32] LABS: PT Prothrombin Time 11.4 SECONDS (10-13.0)
[2024-11-04 22:45] LABS: ALT/SGPT 30 U/L (16-61); AST/SGOT 20 U/L (15-37); Albumin 3.2 g/dL (3.4-5.0); Albumin/Globulin Ratio 0.9 (1.1-1.8); Alkaline Phosphatase 131 U/L (45-117); Anion Gap 9.7 mEq/L (5.0-15.0); BUN Blood Urea Nitrogen 15 mg/dL (7-18); Bicarbonate 25 mEq/L (21-32); Bilirubin Total 0.3 mg/dL (0.2-1.0); Globulin 3.6 g/dL (2.3-3.5); Glomerular Filtration Rate 58 ml/min (=/>90); Glucose Level 128 mg/dL (74-106); NT PRO-BNP 100 pg/mL (<450); Potassium 3.7 mEq/L (3.5-5.1); Protein, Total 6.8 g/dL (6.4-8.2); Sodium Level 138 mEq/L (136-145); Troponin High Sensitivity 4.7 pg/mL (<58.9)
--- NOTE | 2024-11-04 22:49 | RAD REPORT ---
EXAMINATION: Head Brain Wo Cont CLINICAL INDICATION: Male, 79 years old.CONFUSED TECHNIQUE: Axial CT images from the skull base to the vertex without intravenous contrast. Coronal an d sagittal reformatted images were created from the data set. One or more of the following dose reduction techniques were used: Automated exposure control, adjustment of the mA and/or kV according to patient size, and/or iterative reconstruction. Unless otherwise specified, incidental findings do not require dedicated imaging follow-up. [id number]. COMPARISON: 09/27/2022 FINDINGS: INTRACRANIAL: No acute intracranial hemorrhage. No hydrocephalus. No mass effect or midline shift. No significant white matter disease.Mild cerebral atrophy. VASCULATURE: No visualized abnormalities in the arteries or dural venous sinuses. SCALP/SKULL: No calvarial fracture identified. No acute soft tissue abnormality. Left frontal cranio cindy. SINUSES: The visualized paranasal sinuses are mostly clear. No significant mastoid fluid. IMPRESSION: No acute intracranial abnormality.
[2024-11-04 22:55] LABS: Bilirubin Direct < 0.2 mg/dL (0-0.2); Bilirubin Indirect, Calculated 0.1 mg/dL (0.2-0.8)
[2024-11-04] MEDS ORDERED: KETOROLAC 30 MG/ML INJ ONE (22:55)
[2024-11-04] MEDS ORDERED: METOCLOPRAMIDE 10 MG/2mL INJ ONE (22:55)
--- NOTE | 2024-11-05 03:03 | EDPHYS ---
Physician Documentation [facility] Name: Nelson Murillo Age: 79 yrs Sex: Male : 1945 Arrival Date: 11/04/2024 Time: 21:32 Bed 4 Private MD: ED Physician Patrick Evans HPI: 11/04 21:39 This 79 yrs old Male presents to ER via Unassigned with complaints of sp4 Headache, Hallucinations. 11/06 01:23 79-year-old male presents with acute headache and mild agitation. History of prior sp4 craniectomy for intracranial hemorrhage. 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 - Infectious Disease History:: Denies. - Social history:: Smoking status: Patient/guardian denies using tobacco, but has a distant history of tobacco abuse. - Family history:: not pertinent. ROS: 11/06 01:23 Constitutional: Negative for fever, chills, and weight loss, positive acute headache sp4 positive agitation All other systems are negative, Exam: 01:23 Constitutional: This is a well developed, well nourished patient who is awake, alert, sp4 and in no acute distress. Signs of mild to moderate dementia. Head/Face: Normocephalic, atraumatic. Eyes: Pupils equal round and reactive to light, extra-ocular motions intact. Lids and lashes normal. Conjunctiva and sclera are not injected. Cornea within normal limits. Periorbital areas with no swelling, redness, or edema. ENT: Nares patent. No nasal discharge, no septal abnormalities noted. Tympanic membranes are normal and external auditory canals are clear. Oropharynx with no redness, swelling, or masses, exudates, or evidence of obstruction, uvula midline. Mucous membranes moist. Neck: Trachea midline, no thyromegaly or masses palpated, and no cervical lymphadenopathy. Supple, full range of motion without nuchal rigidity, or vertebral point tenderness. Chest/axilla: Normal chest wall appearance and motion. Nontender with no deformity. No lesions are appreciated. Cardiovascular: Regular rate and rhythm with a normal S1 and S2. No gallops, murmurs, or rubs. Normal PMI, no JVD. No pulse deficits. Respiratory: Lungs have equal breath sounds bilaterally, clear to auscultation and percussion. No rales, rhonchi or wheezes noted. No increased work of breathing, no retractions or nasal flaring. Abdomen/GI: Soft, with normal bowel sounds. No distension or tympany. No guarding or rebound. No evidence of tenderness throughout. Back: No spinal tenderness. No costovertebral tenderness. Skin: Warm, dry with normal turgor. Normal color with no rashes, no lesions, and no evidence of cellulitis. MS/ Extremity: Pulses equal, no cyanosis. Neurovascular intact. Full, normal range of motion. Neuro: Awake and alert, GCS 15, oriented to person, place, time, and situation. Cranial nerves II-XII grossly intact. Motor strength 5/5 in all extremities. Sensory grossly intact. Psych: Awake, alert, with orientation to person, place and time. Behavior, mood, and affect are within normal limits 01:23 ECG was reviewed by the Attending Physician. EKG 2226 normal sinus rhythm. Vital Signs: 11/04 21:46 BP 145 / 88; Pulse 63; Resp 12; Temp 97.6; Pulse Ox 97% ; Weight 85.5 kg; Pain 10/10; vc1 22:31 BP 130 / 78; Pulse 61; Resp 15; Pulse Ox 96% on R/A; dd2 23:47 BP 121 / 94; Pulse 66; Resp 16; Pulse Ox 97% on R/A; dd2 11/05 01:30 BP 127 / 83; Pulse 63; Resp 16; Pulse Ox 97% on R/A; dd2 03:30 BP 125 / 79; Pulse 68; Resp 16; Temp 98.1; Pulse Ox 98% on R/A; dd2 11/04 21:46 Pain Scale: Adult vc1 NIH Stroke Scale Scores: 11/04 22:28 NIHSS Score: 0 sp4 Salcha Coma Score: 22:28 Eye Response: spontaneous(4). Motor Response: obeys commands(6). Verbal Response: sp4 oriented(5). Total: 15. 22:31 Eye Response: to voice(3). Motor Response: obeys commands(6). Verbal Response: dd2 confused(4). Total: 13. 11/06 01:29 Eye Response: spontaneous(4). Motor Response: obeys commands(6). Verbal Response: sp4 oriented(5). Total: 15. MDM: 11/04 22:16 Medical Screening Exam initiated sp4 11/05 02:48 ED course: EXAMINATION: Head Brain Wo Cont CLINICAL INDICATION: Male, 79 years sp4 old.CONFUSED TECHNIQUE: Axial CT images from the skull base to the vertex without intravenous contrast. Coronal and sagittal reformatted images were created from the data set. One or more of the following dose reduction techniques were used: Automated exposure control, adjustment of the mA and/or kV according to patient size, and/or iterative reconstruction. Unless otherwise specified, incidental findings do not require dedicated imaging follow-up. [id number]. COMPARISON: 09/27/2022 FINDINGS: INTRACRANIAL: No acute intracranial hemorrhage. No hydrocephalus. No mass effect or midline shift. No significant white matter disease.Mild cerebral atrophy. VASCULATURE: No visualized abnormalities in the arteries or dural venous sinuses. SCALP/SKULL: No calvarial fracture identified. No acute soft tissue abnormality. Left frontal craniotomy. SINUSES: The visualized paranasal sinuses are mostly clear. No significant mastoid fluid. IMPRESSION: No acute intracranial abnormality. . 11/06 01:29 Differential diagnosis: epidural hematoma, hypoglycemia, migraine, tension headache, sp4 vasomotor headache. Data reviewed: vital signs, nurses notes, old medical records, lab test result(s), EKG, radiologic studies, CT scan. Consideration of Admission/Observation Escalation of care including admission/observation considered. ED course: Patient's headache completely improved. Patient stable for discharge home. Repeat neurologic exam is normal.. 11/04 21:39 Order name: Basic Metabolic Panel; Complete Time: 02:46 sp4 11/04 21:39 Order name: CBC with Diff; Complete Time: 02:46 sp4 11/04 21:39 Order name: LFT's; Complete Time: 02:46 sp4 11/04 21:39 Order name: Magnesium; Complete Time: 02:46 sp4 11/04 21:39 Order name: NT PRO-BNP; Complete Time: 02:46 sp4 11/04 21:39 Order name: PT-INR; Complete Time: 02:46 sp4 11/04 21:39 Order name: Troponin HS; Complete Time: 02:46 sp4 11/04 21:39 Order name: XRAY Chest (1 view); Complete Time: 02:46 sp4 11/04 22:19 Order name: CT Head Brain wo Cont; Complete Time: 02:46 sp4 11/04 21:39 Order name: EKG; Complete Time: 21:41 4 11/04 21:39 Order name: Cardiac monitoring; Complete Time: 22:16 4 11/04 21:39 Order name: EKG - Nurse/Tech; Complete Time: 22:31 4 11/04 21:39 Order name: IV Saline Lock; Complete Time: 22:15 4 11/04 21:39 Order name: Labs collected and sent; Complete Time: 22:15 11/04 21:39 Order name: O2 Per Protocol; Complete Time: 22:15 4 11/04 21:39 Order name: O2 Sat Monitoring; Complete Time: 22:15 sp4 EC/20 22:26 Rate is 65 beats/min. Rhythm is regular, Sinus Rhythm. QRS Cascade is Normal. PA interval sp4 is prolonged. QRS interval is normal. QT interval is normal. No Q waves. T waves are Normal. No ST changes noted. Clinical impression: No evidence of ischemia. Interpreted by me. Reviewed by me. Administered Medications: 11/04 23:00 Drug: metoCLOPramide IVP 10 mg IVP once; over 1 to 2 minutes Route: IVP; Site: right dd2 antecubital; 23:15 Follow up: Response: No adverse reaction dd2 23:00 Drug: Ketorolac IVP 15 mg IVP once Route: IVP; Site: right antecubital; dd2 23:15 Follow up: Response: No adverse reaction dd2 Disposition Summary: 11/05/24 03:02 Discharge Ordered Notes: Location: Home sp4 Problem: new sp4 Symptoms: have improved sp4 Condition: Stable sp4 Diagnosis - Tension-type headache sp4 - Episodic tension-type headache sp4 Followup: sp4 - With: Private Physician - When: 7 - 10 days - Reason: Recheck today's complaints Discharge Instructions: - Discharge Summary Sheet sp4 - Tension Headache, Adult, [id number] sp4 Forms: - Patient Portal Instructions sp4 Prescriptions: - Fioricet 50-300-40 mg Oral capsule - take 1 capsule ORAL route 3 times per day PRN headaches; 30 capsule; Refills: sp4 0, Product Selection Permitted NIH Stroke Scale - NIH Stroke Score Date: 11/04/2024 Time: 22:28 Total Score = 0 10. Dysarthria (speech clarity - read or repeat words) - 0(Normal) 11. Extinction and Inattention (visual/tactile/auditory/spatial/personal) - 0(No abnormality) 1a. Level of Consciousness (LOC) - 0(Alert) 1b. Level of Consciousness (LOC) (Month \T\ Age) - 0(Both) 1c. LOC Commands (Open \T\ Closes Eyes/Technical Staff Assistant) - 0(Both) 2. Best Gaze (Lateral Gaze Paresis) - 0(Normal) 3. Visual Field Loss - 0(No visual loss) 4. Facial Palsy - 0(Normal) 5a. Left Arm: Motor (10-second hold) - 0(No drift) 5b. Right Arm: Motor (10-second hold) - 0(No drift) 6a. Left Leg: Motor (5-second hold - always test supine) - 0(No drift) 6b. Right Leg: Motor (5-second hold - always test supine) - 0(No drift) 7. Limb Ataxia (finger/nose \T\ heel/horne - test with eyes open) - 0(Absent) 8. Sensory Loss (pinprick arms/legs/face) - 0(Normal) 9. Best Language: Aphasia (description/naming/reading) - 0(No aphasia) Initials: sp4 Signatures: Dispatcher [employer] EDNalini Yee RN RN vc1 Patrick Evans MD MD sp4 LEONEL, YVETTE, RN RN dd2
--- NOTE | 2024-11-05 03:03 | ER ---
Nurse's Notes [facility] Name: Nelson Murillo Age: 79 yrs Sex: Male : 1945 Arrival Date: 11/04/2024 Time: 21:32 Bed 4 Private MD: Diagnosis: Tension-type headache;Episodic tension-type headache Presentation: 11/04 21:46 Chief complaint: Parent and/or Guardian states: complaining of a bad headache and has vc1 been really agitated the last 30 minutes. He took Tylenol but it isn't helping and he can't take anything else because he has had 5 brain bleeds. Coronavirus screen: Client denies travel out of the [place] in the last 14 days. At this time, the client does not indicate any symptoms associated with coronavirus-19. Ebola Screen: Patient negative for fever greater than or equal to 101.5 degrees Fahrenheit, and additional compatible Ebola Virus Disease symptoms Patient denies exposure to infectious person. Patient denies travel to an Ebola-affected area in the 21 days before illness onset. No symptoms or risks identified at this time. Initial Sepsis Screen: Does the patient meet any 2 criteria? No. Patient's initial sepsis screen is negative. Does the patient have a suspected source of infection? No. Patient's initial sepsis screen is negative. Risk Assessment: Do you want to hurt yourself or someone else? Patient reports no desire to harm self or others. Onset of symptoms was November 04, 2024. Care prior to arrival: Medication(s) given: Tylenol. Activity prior to arrival: None. Mechanism of Injury: No Mechanism of Injury. Transition of care: patient was not received from another setting of care. 21:46 Method Of Arrival: Ambulatory vc1 21:46 Acuity: HILARIA 3 vc1 Triage Assessment: 21:58 Headache History: The patient has had previous headaches and this one is similar to vc1 previous episodes. General: Appears in no apparent distress. uncomfortable, slender, Behavior is cooperative, flat, quiet. Pain: Complains of pain in right eye and left eye Pain does not radiate. Pain currently is 10 out of 10 on a pain scale. Pain began today Noted to be quiet/stoic, resistant to movement, withdrawn, Also complains of no other associated symptoms. EENT: No deficits noted. No signs and/or symptoms were reported regarding the EENT system. Neuro: Level of Consciousness is awake, obeys commands, Oriented to person, place, situation, Reports headache frontal area. Cardiovascular: Heart tones S1 S2 present Capillary refill < 3 seconds Patient's skin is warm and dry. Respiratory: Airway is patent Respiratory effort is even, unlabored, Respiratory pattern is regular, symmetrical. Derm: Skin is intact, is healthy with good turgor, Skin is dry, Skin is normal, Skin temperature is warm. 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 - Infectious Disease History:: Denies. - Social history:: Smoking status: Patient/guardian denies using tobacco, but has a distant history of tobacco abuse. - Family history:: not pertinent. Screenin:31 [facility] ED Fall Risk Assessment (Adult) History of falling in the last 3 months, dd2 including since admission No falls in past 3 months (0 pts) Confusion or Disorientation Yes (5 pts) Intoxicated or Sedated Yes (3 pts) Impaired Gait No (0 pts) Mobility Assist Device Used No (0 pt) Altered Elimination No (0 pt) Score/Fall Risk Level 3 or more points = High Risk Oriented to surroundings, Maintained a safe environment, Educated pt \T\ family on fall prevention, incl call for assistance when getting out of bed, Assessed \T\ reinforced patient's understanding of fall precautions, Hourly rounding (assess needs \T\ fall precautionary measures) done, Used ambulatory aids as needed (educated on \T\ assisted with), Utilized family, sitter, or virtual certified registered nurse anesthetist as indicated. Abuse screen: Denies threats or abuse. Denies injuries from another. Nutritional screening: No deficits noted. Tuberculosis screening: No symptoms or risk factors identified. Assessment: 22:10 General: Appears in no apparent distress. uncomfortable, Behavior is calm, cooperative, dd2 appropriate for age. Pain: Complains of pain in face and left eye and right eye Pain does not radiate. Unable to use pain scale. Patient appears to be grimacing. Neuro: Level of Consciousness is obeys commands, lethargic, PT APPEARS LETHARGIC, PT REPORTS GIVING PT HIS SEROQUEL HAZARDOUS MATERIALS HANDLER.. Oriented to person, place, Optical Sales Associate are equal bilaterally Moves all extremities. Speech is normal, Facial symmetry appears normal, Pupils are PERRLA, Intact Reports headache in right in left EYES Denies blurred vision photophobia. Cardiovascular: Capillary refill < 3 seconds Patient's skin is warm and dry. Rhythm is regular. Respiratory: Airway is patent Respiratory effort is even, unlabored, Respiratory pattern is regular, symmetrical. GI: No deficits noted. No signs and/or symptoms were reported involving the gastrointestinal system. Abdomen is flat, non-distended, Bowel sounds present X 4 quads. Abd is soft and non tender X 4 quads. : No deficits noted. No signs and/or symptoms were reported regarding the genitourinary system. EENT: No deficits noted. No signs and/or symptoms were reported regarding the EENT system. Derm: No deficits noted. No signs and/or symptoms reported regarding the dermatologic system. Musculoskeletal: Circulation, motion, and sensation intact. Range of motion: intact in all extremities. Vital Signs: 21:46 BP 145 / 88; Pulse 63; Resp 12; Temp 97.6; Pulse Ox 97% ; Weight 85.5 kg; Pain 10/10; vc1 22:31 BP 130 / 78; Pulse 61; Resp 15; Pulse Ox 96% on R/A; dd2 23:47 BP 121 / 94; Pulse 66; Resp 16; Pulse Ox 97% on R/A; dd2 11/05 01:30 BP 127 / 83; Pulse 63; Resp 16; Pulse Ox 97% on R/A; dd2 03:30 BP 125 / 79; Pulse 68; Resp 16; Temp 98.1; Pulse Ox 98% on R/A; dd2 11/04 21:46 Pain Scale: Adult vc1 Leif Coma Score: 11/04 22:28 Eye Response: spontaneous(4). Motor Response: obeys commands(6). Verbal Response: sp4 oriented(5). Total: 15. 22:31 Eye Response: to voice(3). Motor Response: obeys commands(6). Verbal Response: dd2 confused(4). Total: 13. 11/06 01:29 Eye Response: spontaneous(4). Motor Response: obeys commands(6). Verbal Response: sp4 oriented(5). Total: 15. NIH Stroke Scale Scores: 11/04 22:28 NIHSS Score: 0 sp4 ED Course: 21:35 Patient arrived in ED. im 21:39 Patrick Evans MD is Attending Physician. sp4 21:53 Triage completed. vc1 21:57 YVETTE CASTANEDA, RN is Primary Nurse. dd2 21:57 Arm band placed on right wrist. vc1 22:13 XRAY Chest (1 view) In Process Unspecified. EDMS 22:15 Basic Metabolic Panel Sent. dd2 22:15 CBC with Diff Sent. dd2 22:15 LFT's Sent. dd2 22:15 Magnesium Sent. dd2 22:15 NT PRO-BNP Sent. dd2 22:16 PT-INR Sent. dd2 22:16 Troponin HS Sent. dd2 22:31 Patient has correct armband on for positive identification. Bed in low position. Call dd2 light in reach. Side rails up X2. Client placed on continuous cardiac and pulse oximetry monitoring. NIBP monitoring applied. cash checker on. Door closed. Noise minimized. Warm blanket given. Pillow given. Verbal reassurance given. 22:31 No provider procedures requiring assistance completed. Initial lab(s) drawn, by me, dd2 sent to lab. EKG done, by ED staff, reviewed by Patrick Evans MD. Inserted saline lock: 20 gauge in right antecubital area, using aseptic technique. Blood collected. Flushed with 10 mL NS. Patient maintains SpO2 saturation greater than 95% on room air. 22:42 CT Head Brain wo Cont In Process Unspecified. EDMS 11/05 03:30 Provided Education on: d/c instructions, f/u and medication. dd2 03:30 IV discontinued, intact, bleeding controlled, No redness/swelling at site. Pressure dd2 dressing applied. Administered Medications: 11/04 23:00 Drug: metoCLOPramide IVP 10 mg IVP once; over 1 to 2 minutes Route: IVP; Site: right dd2 antecubital; 23:15 Follow up: Response: No adverse reaction dd2 23:00 Drug: Ketorolac IVP 15 mg IVP once Route: IVP; Site: right antecubital; dd2 23:15 Follow up: Response: No adverse reaction dd2 Medication: 22:31 VIS not applicable for this client. dd2 Outcome: 11/05 03:02 Discharge ordered by . sp4 03:30 Discharged to home ambulatory, dd2 03:30 Condition: improved 03:30 Discharge instructions given to patient, significant other, Instructed on discharge instructions, follow up and referral plans. medication usage, Demonstrated understanding of instructions, follow-up care, medications, Prescriptions given X 1, 03:32 Patient left the ED. dd2 NIH Stroke Scale - NIH Stroke Score Date: 11/04/2024 Time: 22:28 Total Score = 0 10. Dysarthria (speech clarity - read or repeat words) - 0(Normal) 11. Extinction and Inattention (visual/tactile/auditory/spatial/personal) - 0(No abnormality) 1a. Level of Consciousness (LOC) - 0(Alert) 1b. Level of Consciousness (LOC) (Month \T\ Age) - 0(Both) 1c. LOC Commands (Open \T\ Closes Eyes/Wood Panel Inspector) - 0(Both) 2. Best Gaze (Lateral Gaze Paresis) - 0(Normal) 3. Visual Field Loss - 0(No visual loss) 4. Facial Palsy - 0(Normal) 5a. Left Arm: Motor (10-second hold) - 0(No drift) 5b. Right Arm: Motor (10-second hold) - 0(No drift) 6a. Left Leg: Motor (5-second hold - always test supine) - 0(No drift) 6b. Right Leg: Motor (5-second hold - always test supine) - 0(No drift) 7. Limb Ataxia (finger/nose \T\ heel/horne - test with eyes open) - 0(Absent) 8. Sensory Loss (pinprick arms/legs/face) - 0(Normal) 9. Best Language: Aphasia (description/naming/reading) - 0(No aphasia) Initials: sp4 Signatures: Dispatcher [employer] Nalini Riddle RN RN vc1 Patrick Evans MD MD sp4 Lyndsay Mcdermott DIANA, RN RN dd2
[2024-11-05 04:23] VITALS: BP 125/79; TEMP 98.1; O2SAT 98
== END 2024-11-05 03:32 | disposition home or self-care (01) ==
LOC: ER 21:32
DX: G44.219 Episodic tension-type headache, not intractable (principal); R45.1 Restlessness and agitation; I10 Essential (primary) hypertension; Z86.73 Personal history of transient ischemic attack (TIA), and cerebral infarction without residual deficits
CPT/HCPCS: 93005; 85025; 80048; 36415; 83735; 85610; 80076; 84484; 83880; 70450; 71045; 96375; 96374; 99285; J2765